=== PATIENT | male | born 1945 | race Caucasian/White ===

== ENCOUNTER → 2016-09-01 | Outpatient (CLI) | payer MEDICARE ==
--- NOTE | 2016-09-01 16:28 | XR ---
EXAMINATION TYPE: XR cervical spine comp DATE OF EXAM ORDERED: 09/01/2016 4:12 PM HISTORY: M54.2 Cervicalgia. COMPARISON: None. FINDINGS: There has been a midline sternotomy. There has been an ACDF extending from C4 to C7. Alignment is maintained. There does appear to be osse ous fusion. Atlantoaxial relationships are normal. There is intervertebral foraminal narrowing on the left at at C5-6 and C6-7. There is intervertebral foraminal narrowing on the right at C4-5, C5-6 and C6-7. Prevertebral soft tissues are normal. IMPRESSION: 1. STATUS POST ACDF, C4 THROUGH TO C7. 2. MULTILEVEL INTERVERTEBRAL FORAMINAL NARROWING DESCRIBED.
== END ==
LOC: RADXRMAIN 15:31
PROVIDERS: ATTEND Family Medicine
DX: Z98.1 Arthrodesis status (principal); M99.71 Connective tissue and disc stenosis of intervertebral foramina of cervical region
CPT/HCPCS: 72050

== ENCOUNTER → 2016-10-20 | Outpatient (CLI) | payer MEDICARE ==
--- NOTE | 2016-10-20 13:33 | CT ---
EXAMINATION TYPE: CT cervical spine wo con DATE OF EXAM: 10/20/2016 1:13 PM COMPARISON: NONE HISTORY: Cervical radiculopathy CT DLP: 640.[address] of the cervical spine was performed with bone and soft tissue window settings submitted . Coronal and sagittal reconstruction is obtained. C2-3: Unremarkable C3-4: Mild degenerative disc space narrowing. Posterior disc bulge. No evidence for disc herniation o r protrusion. No central stenosis. Degenerative changes of the cervical apophyseal joints resulting i n mild left foraminal encroachment. C4-5: There is evidence of solid fusion. Anterior fixation plate is in place. Alignment is anatomic. Mild posterior hypertrophic change seen. No evidence for recurrent or residual disease. No evidence f or central stenosis. Mild right foraminal encroachment. C5-6: There is evidence of solid fusion. Anterior fixation plate and screws are in place. Mild hypert rophic changes seen posteriorly. No evidence for recurrent or residual disease. Mild left foraminal e ncroachment. C6-7: Evidence of solid fusion. Anterior fixation plate and screws are in place. Alignment is anatomi c. Mild posterior hypertrophic change. No definite evidence for recurrent or residual disease. No estella tral stenosis. Mild bilateral foraminal encroachment. C7-T1: Moderate degenerative disc space narrowing. Mild posterior disc bulge. No herniation protrusio n or central stenosis. Foramina are patent. There is no evidence for fracture or malalignment. IMPRESSION: 1. Postoperative changes of fusion as discussed C4-5 through C6-7. Mild foraminal encroachment noted. 2. Mild posterocentral disc bulge at C3-4. See above.
== END | disposition home or self-care (01) ==
LOC: RADCTMAIN 12:50
PROVIDERS: ATTEND Family Medicine
DX: M50.11 Cervical disc disorder with radiculopathy, high cervical region (principal); Z98.1 Arthrodesis status
CPT/HCPCS: 72125

== ENCOUNTER → 2017-04-26 | Outpatient (CLI) | payer MEDICARE ==
[2017-04-26 14:36] LABS: Blood Urea Nitrogen 14 mg/dL (9-20); Non-African American GFR(MDRD) >60 (>60 ml/min/1.73 sqM)
--- NOTE | 2017-04-26 15:51 | CT ---
EXAMINATION TYPE: CT angio chest DATE OF EXAM: 04/26/2017 COMPARISON: 03/11/2015 HISTORY: Ascending aortic aneurysm CT DLP: 428.1 mGycm CONTRAST: CTA thoracic aorta with 3-D reconstruction is performed and with IV Contrast, patient injected with 1 00 mL of Omnipaque 350. Contrast CTA of the thoracic aorta was performed from the lung apex through the upper abdomen. 3D re construction imaging obtained at a separate workstation. CT Chest: THORACIC AORTA: Ascending thoracic aortic aneurysm is again noted and is essentially unchanged measur ing approximately 4.7 cm AP dimension versus 4.7 cm previously. No evidence for complicating factor s uch as dissection or para-aortic hematoma. Atheromatous Changes are noted. Mild atheromatous changes seen. There is no evidence for dissection or periaortic collection. LUNGS: The lungs are clear and free of infiltrate or atelectasis. No pulmonary nodule or mass is det ected. Upper lobe emphysematous changes again noted. MEDIASTINUM: No evidence for mediastinal hemat rachid. The heart is not enlarged. No evidence for mediastinal mass or adenopathy. HILAR STRUCTURES: No evidence for mass. No hilar adenopathy is appreciated. OTHER: No significant abnormality. IMPRESSION- Stable ascending thoracic aortic aneurysm.
== END | disposition home or self-care (01) ==
LOC: RADCTMAIN 13:56
PROVIDERS: ATTEND Internal Medicine Interventional Cardiology
DX: I71.2 Thoracic aortic aneurysm, without rupture (principal); I25.10 Atherosclerotic heart disease of native coronary artery without angina pectoris; Z88.1 Allergy status to other antibiotic agents; Z88.8 Allergy status to other drugs, medicaments and biological substances
CPT/HCPCS: 82565; 84520; 71275; 36415; Q9967

== ENCOUNTER → 2018-03-16 | Outpatient (CLI) | payer MEDICARE ==
[2018-03-16 15:44] LABS: Calcium 9.5 mg/dL (8.4-10.2); Potassium 5.3 mmol/L (3.5-5.1)
--- NOTE | 2018-03-16 16:44 | CT ---
EXAMINATION TYPE: CT angio thor/abd pel aorta DATE OF EXAM: 03/16/2018 COMPARISON: None HISTORY: follow up thoracic aneurysm CT DLP: 814.30 mGycm, Automated exposure control for dose reduction was used. CONTRAST: Performed injected with 100 mL of Isovue 370. TECHNIQUE: Axial images were obtained at 5 mm thick sections. Reconstructed images are reviewed on t he computer in the coronal plane. FINDINGS: Portion of the thyroid visualized is normal. No suspicious lung nodules or focal infiltrates are present. Emphysematous changes are present. No enlarged mediastinal or hilar adenopathy is evident. There is a three-vessel arch. The ascending thoracic aorta at the level of the main pulmonary artery is 4.7 cm. The main pulmonary artery the bifurcation is 3.8 cm. Maximum transverse diameter of the ao rta is the ascending thoracic aorta above the root measuring 4.8 cm. The aorta tapers through its cou rse. The descending thoracic aorta at the level of the niki the diaphragm measures 2.9 cm AP. Renal artery origins superior mesenteric artery origin appear normal. The celiac axis may has some fo beka stenosis identified on the sagittal plane and reconstructed images. There may be some mild fusiform prominence of the distal abdominal aorta with the AP diameter above t he bifurcation measuring 2.4 cm. The mid abdominal aorta has a more normal appearance of 2.1 cm. Vasc ular calcification is noted throughout the aorta. ABDOMEN: Multiple bilateral renal cysts are present measuring the largest 4.1 cm on the posterior inf erior medial left kidney measuring 4.5 superior lateral right kidney. Liver may has some central bili joanne dilatation. Patient is status post cholecystectomy common bile duct appears prominent at 1.4 cm. Normal less than 1.0 cm. The adrenal glands are normal. Loops of bowel without oral contrast are unre markable. Urinary bladder is decompressed. Wall thickening is not excluded. Prostate contains calcifi cation. The appendix is not identified. No suspicious inflammatory changes or tubular structures are evident. IMPRESSIONS: 1. Ascending thoracic aortic aneurysm measuring 4.8 cm at the aortic root. This tapers throughout the visualized aorta to the distal abdominal aorta which has some mild fusiform prominence of the maximu m AP diameter of 2.4 cm compared to slightly more proximal 2.1 cm. 2. Bilateral renal cysts. 3. Prominent common bile duct 1.4 cm.
== END | disposition home or self-care (01) ==
LOC: RADCTMAIN 14:59
PROVIDERS: ATTEND Internal Medicine Interventional Cardiology
DX: I71.2 Thoracic aortic aneurysm, without rupture (principal); I10 Essential (primary) hypertension; N28.1 Cyst of kidney, acquired; Z79.899 Other long term (current) drug therapy
CPT/HCPCS: 80048; 71275; 36415; 74174; Q9967

== ENCOUNTER 2019-10-20 21:00 | Inpatient (IN) | payer MEDICARE ==
[2019-10-20] MEDS ORDERED: AMIODARONE 360 MG in DEXTROSE 5% IN WATER 200 ML IV ONE ×2 (21:06)
[2019-10-20] MEDS ORDERED: DEXTROSE 5% IN WATER 100 ML with AMIODARONE 150 MG IV ONE (21:06)
--- NOTE | 2019-10-20 21:27 | XR ---
EXAMINATION TYPE: XR chest 1V portable DATE OF EXAM: 10/20/2019 HISTORY: Shortness of breath. COMPARISON: July 20, 2014 TECHNIQUE: Single view of the chest is submitted. FINDINGS: Demonstrated are scattered senescent parenchymal change. There is increased patchy density right suprahilar and right infrahilar regions which may reflect dev eloping pneumonia. Correlate clinically. There is cardiomegaly without overt failure at this time. Hilar and mediastinal structures are within normal limits. Degenerative changes are seen of the dorsal spine. IMPRESSION: 1. There is increased patchy density right suprahilar and right infrahilar regions which may reflect developing pneumonia. Correlate clinically.
--- NOTE | 2019-10-20 21:29 | ED ---
General Adult HPI - General Stated complaint: Cardiac issues Time Seen by Provider: 10/20/19 21:02 Source: patient, EMS, RN notes reviewed, old records reviewed Mode of arrival: EMS Limitations: no limitations - History of Present Illness Initial comments: 74-year-old male presents by EMS with ventricular tachycardia. He has a history of CAD, status post coronary artery bypass graft in 1999. He's had intermittent chest pain throughout the day today. As well as several episodes of vomiting. Patient had been given aspirin nitroglycerin by EMS prior to arrival. He has stable blood pressure during transport. He has no active chest pain at the time my evaluation. Denies current dyspnea but states that at times throughout the day today he had had dyspnea. No reported fever. Denies recent changes in medication. - Related Data Home Medications Medication Instructions Recorded Confirmed Aspirin 81 mg PO DAILY 07/04/14 10/15/14 Diltiazem Cd [Cardizem CD] 240 mg PO DAILY 07/04/14 10/15/14 Ezetimibe [Zetia] 10 mg PO DAILY 07/04/14 10/15/14 Sertraline [Zoloft] 100 mg PO BID 07/04/14 10/15/14 Tamsulosin HCl [Flomax] 0.4 mg PO DAILY 07/04/14 10/15/14 oxyCODONE HCL [OxyCONTIN] 60 mg PO QID 07/04/14 10/15/14 Ipratropium-Albuterol Nebulize 3 ml INHALATION DIRECTED PRN 10/12/14 10/15/14 [Duoneb 0.5 mg-3 mg/3 ml Soln] Metoprolol Tartrate [Lopressor] 50 mg PO HS 10/12/14 10/15/14 Metoprolol Tartrate [Lopressor] 100 mg PO QAM 10/12/14 10/15/14 Pravastatin Sodium [Pravachol] 40 mg PO HS 10/12/14 10/15/14 Previous Rx's Medication Instructions Recorded Finasteride [Proscar] 5 mg PO DAILY #30 tab 07/23/14 Furosemide [Lasix] 40 mg PO DAILY #30 tab 07/23/14 Losartan [Cozaar] 50 mg PO DAILY #30 tab 07/23/14 Potassium Citrate [Urocit-K] 10 meq PO PC-TID #1 tablet.er 07/23/14 Allergies Allergy/AdvReac Type Severity Reaction Status Date / Time levofloxacin [From Levaquin] AdvReac Unknown Verified 10/20/19 21:02 Review of Systems ROS Statement: Those systems with pertinent positive or pertinent negative responses have been documented in the HPI. ROS Other: All systems not noted in ROS Statement are negative. Past Medical History Past Medical History: Coronary Artery Disease (CAD), Chest Pain / Angina, COPD, Hyperlipidemia, Hypertension, Musculoskeletal Disorder, Osteoarthritis (OA), Prostate Disorder Additional Past Medical History / Comment(s): CAD, CABG, HTN, hyperlipidemia, GERD, HH, fibromyalgia, OA, anemia, kidney stones, hypogonadism, COPD, depression. History of Any Multi-Drug Resistant Organisms: None Reported Past Surgical History: Adenoidectomy, Back Surgery, Cholecystectomy, Coronary Bypass/CABG, Heart Catheterization, Hernia Repair, Orthopedic Surgery, Tonsillectomy Additional Past Surgical History / Comment(s): CABG x3 15 years ago, tonsillectomy and adenoidectomy, rhinoplasty, ACDF 2, left bunionectomy, Lasik, lap glen, lipoma from left shoulder 2, colonoscopy 5 years ago, hernia repair. Past Anesthesia/Blood Transfusion Reactions: No Reported Reaction Past Psychological History: No Psychological Hx Reported Smoking Status: Former smoker Past Alcohol Use History: None Reported Past Drug Use History: None Reported - Past Family History Mother Family Medical History: Cancer, Coronary Artery Disease (CAD) Father Family Medical History: Cancer Brother(s) Family Medical History: Congestive Heart Failure (CHF), Coronary Artery Disease (CAD) Sister(s) Family Medical History: Congestive Heart Failure (CHF) General Exam Limitations: no limitations General appearance: alert, in no apparent distress Head exam: Present: atraumatic, normocephalic Eye exam: Present: normal appearance, PERRL Neck exam: Present: normal inspection Respiratory exam: Present: normal lung sounds bilaterally. Absent: respiratory distress, wheezes Cardiovascular Exam: Present: normal rhythm, tachycardia GI/Abdominal exam: Present: soft. Absent: distended, tenderness, guarding Extremities exam: Present: normal capillary refill, pedal edema Neurological exam: Present: alert, oriented X3. Absent: motor sensory deficit Psychiatric exam: Present: anxious Skin exam: Present: warm, dry, pallor. Absent: cyanosis, diaphoretic Course Vital Signs 10/20/19 10/20/19 10/20/19 21:03 21:25 21:50 Temperature 98.3 F Pulse Rate 128 H 128 H 129 H Respiratory 20 20 20 Rate Blood Pressure 169/114 185/110 169/104 O2 Sat by Pulse 98 97 98 Oximetry 10/20/19 22:00 Temperature Pulse Rate 125 H Respiratory 20 Rate Blood Pressure 172/107 O2 Sat by Pulse 98 Oximetry - Reevaluation(s) Reevaluation #1: 10/20/19 21:35 Case was discussed with Dr. Sexton, agree with amiodarone and heparin, recommends lidocaine and cardioversion if lidocaine fast to convert this patient. Reevaluation #2: 10/20/19 21:[address] Best who will admit. Reevaluation #3: 10/20/19 21:[address] Dodson, will accept patient to the ICU. EKG Findings - EKG Comments: EKG Findings:: EKG: Wide complex tachycardia, sustained ventricular tachycardia rate of 129, QRS duration 176, QTC 600 ST segment depression in the precordial leads. History of left bundle branch block. Repeat EKG at 2218, wide-complex sinus rhythm with frequent consecutive PVC and sustained V. tach, left axis deviation, right bundle-branch block ventricular rate of 110, QRS duration 126, QTC 519, no ST segment elevation Medical Decision Making - Medical Decision Making 74-year-old male presenting with sustained ventricular tachycardia and intermittent chest pain throughout the day today. His symptoms have been present for greater than 12 hours prior to arrival. He started on amiodarone in the emergency department. Did discuss case with cardiology who recommended lidocaine, lidocaine was administered and there was improvement in rhythm, sinus rhythm with frequent PVCs and nonsustained V. tach. Chest x-ray showing concern for atelectasis versus pneumonia. Patient has normal electrolytes, CBC showed mild anemia with hemoglobin 12.9. His troponin is significantly elevated at 11 consistent with a non-ST segment elevated ID and likely worsening troponin elevation secondary to demand from ventricular tachycardia. He had been initiated on heparin, will be continued on amiodarone he had been given aspirin by EMS prior to arrival. He's admitted to the ICU with both pulmonology and cardiology on consult. Both Dr. Sexton and Dr. Dodson, have been contacted as well as the admitting physician Dr. Best. - Lab Data Result diagrams: 10/20/19 21:15 10/20/19 21:15 Lab Results 10/20/19 10/20/19 10/20/19 Range/Units 21:15 21:15 21:15 WBC 8.1 (3.8-10.6) k/uL RBC 4.38 (4.30-5.90) m/uL Hgb 12.6 L (13.0-17.5) gm/dL Hct 40.6 (39.0-53.0) % MCV 92.7 (80.0-100.0) fL MCH 28.8 (25.0-35.0) pg MCHC 31.1 (31.0-37.0) g/dL RDW 13.8 (11.5-15.5) % Plt Count 180 (150-450) k/uL Neutrophils % 79 % Lymphocytes % 11 % Monocytes % 7 % Eosinophils % 0 % Basophils % 0 % Neutrophils # 6.4 (1.3-7.7) k/uL Lymphocytes # 0.9 L (1.0-4.8) k/uL Monocytes # 0.6 (0-1.0) k/uL Eosinophils # 0.0 (0-0.7) k/uL Basophils # 0.0 (0-0.2) k/uL Hypochromasia Slight PT (9.0-12.0) sec INR (<1.2) APTT (22.0-30.0) sec Sodium 136 L (137-145) mmol/L Potassium 5.0 (3.5-5.1) mmol/L Chloride 106 (98-107) mmol/L Carbon Dioxide 15 L (22-30) mmol/L Anion Gap 15 mmol/L BUN 28 H (9-20) mg/dL Creatinine 0.88 (0.66-1.25) mg/dL Est GFR (CKD-EPI)AfAm >90 (>60 ml/min/1.73 sqM) Est GFR (CKD-EPI)NonAf 84 (>60 ml/min/1.73 sqM) Glucose 136 H (74-99) mg/dL Calcium 9.0 (8.4-10.2) mg/dL Magnesium 1.9 (1.6-2.3) mg/dL Total Bilirubin 1.4 H (0.2-1.3) mg/dL AST 158 H (17-59) U/L ALT 69 H (4-49) U/L Alkaline Phosphatase 84 (38-126) U/L Troponin I 11.600 H* (0.000-0.034) ng/mL NT-Pro-B Natriuret Pep pg/mL Total Protein 6.6 (6.3-8.2) g/dL Albumin 3.5 (3.5-5.0) g/dL 10/20/19 10/20/19 Range/Units 21:15 21:39 WBC (3.8-10.6) k/uL RBC (4.30-5.90) m/uL Hgb (13.0-17.5) gm/dL Hct (39.0-53.0) % MCV (80.0-100.0) fL MCH (25.0-35.0) pg MCHC (31.0-37.0) g/dL RDW (11.5-15.5) % Plt Count (150-450) k/uL Neutrophils % % Lymphocytes % % Monocytes % % Eosinophils % % Basophils % % Neutrophils # (1.3-7.7) k/uL Lymphocytes # (1.0-4.8) k/uL Monocytes # (0-1.0) k/uL Eosinophils # (0-0.7) k/uL Basophils # (0-0.2) k/uL Hypochromasia PT 12.9 H (9.0-12.0) sec INR 1.3 H (<1.2) APTT 21.6 L (22.0-30.0) sec Sodium (137-145) mmol/L Potassium (3.5-5.1) mmol/L Chloride (98-107) mmol/L Carbon Dioxide (22-30) mmol/L Anion Gap mmol/L BUN (9-20) mg/dL Creatinine (0.66-1.25) mg/dL Est GFR (CKD-EPI)AfAm (>60 ml/min/1.73 sqM) Est GFR (CKD-EPI)NonAf (>60 ml/min/1.73 sqM) Glucose (74-99) mg/dL Calcium (8.4-10.2) mg/dL Magnesium (1.6-2.3) mg/dL Total Bilirubin (0.2-1.3) mg/dL AST (17-59) U/L ALT (4-49) U/L Alkaline Phosphatase (38-126) U/L Troponin I (0.000-0.034) ng/mL NT-Pro-B Natriuret Pep 84413 pg/mL Total Protein (6.3-8.2) g/dL Albumin (3.5-5.0) g/dL Critical Care Time Critical Care Time: Yes Total Critical Care Time: 35 Disposition Clinical Impression: Ventricular tachycardia, NSTEMI (non-ST elevated myocardial infarction) Disposition: ADMITTED IP TO THIS [facility] Condition: Serious Is patient prescribed a controlled substance at d/c from ED?: No Referrals: Cong Hassan DO [Primary Care Provider] - 1-2 days Decision to Admit Reason: Admit from EC Decision Date: 10/20/19 Decision Time: 22:25
[2019-10-20] MEDS ORDERED: HEPARIN SODIUM,PORCINE 5,000 UNIT/ML 1 ML VIAL IV PRN (21:31)
[2019-10-20] MEDS ORDERED: HEPARIN SODIUM,PORCINE 5,000 UNIT/ML 1 ML VIAL IV ONE (21:31)
[2019-10-20] MEDS ORDERED: cefTRIAXone IN SWFI 1,000 MG/10 ML SYRINGE IVP STA (21:32)
[2019-10-20 21:35] LABS: AST 158 U/L (17-59); African American GFR (CKD) >90 (>60 ml/min/1.73 sqM); Albumin 3.5 g/dL (3.5-5.0); Alkaline Phosphatase 84 U/L (38-126); Anion Gap 15 mmol/L; Basophils % (A) 0 %; Blood Urea Nitrogen 28 mg/dL (9-20); Carbon Dioxide 15 mmol/L (22-30); Chloride 106 mmol/L (98-107); Eosinophils % (A) 0 %; Glucose 136 mg/dL (74-99); HCT 40.6 % (39.0-53.0); HGB 12.6 gm/dL (13.0-17.5); Hypochromasia Slight; Lymphocytes # (A) 0.9 k/uL (1.0-4.8); Lymphocytes % (A) 11 %; MCH 28.8 pg (25.0-35.0); MCHC 31.1 g/dL (31.0-37.0); MCV 92.7 fL (80.0-100.0); Magnesium 1.9 mg/dL (1.6-2.3); Mean Platelet Volume 11.4; Monocytes # (A) 0.6 k/uL (0-1.0); Monocytes % (A) 7 %; Neutrophils # (A) 6.4 k/uL (1.3-7.7); Neutrophils % (A) 79 %; Non-African American GFR(CKD) 84 (>60 ml/min/1.73 sqM); Platelet Count 180 k/uL (150-450); RBC 4.38 m/uL (4.30-5.90); RDW 13.8 % (11.5-15.5); Sodium 136 mmol/L (137-145); Total Bilirubin 1.4 mg/dL (0.2-1.3); Total Protein 6.6 g/dL (6.3-8.2); WBC 8.1 k/uL (3.8-10.6)
[2019-10-20 21:42] LABS: ALT 69 U/L (4-49)
[2019-10-20] MEDS ORDERED: HEPARIN SOD,PORK IN 0.45% NACL 25,000 UNIT in 0.45% NACL 1 250ML.BAG IV SCH (21:45)
[2019-10-20] MEDS ORDERED: LIDOCAINE 2% SYG (PF) 100 MG/5 ML IV ONE (21:47)
[2019-10-20] MEDS ORDERED: NALOXONE 0.4 MG/ML 1 ML VIAL IV PRN (21:58)
[2019-10-20] MEDS ORDERED: ACETAMINOPHEN TAB 325 MG TAB PO PRN (21:58)
[2019-10-20 21:59] LABS: INR 1.3 (<1.2); Prothrombin Time 12.9 sec (9.0-12.0)
[2019-10-20] MEDS ORDERED: SODIUM CHLORIDE 0.9% 1,000 ML IV SCH (22:00)
[2019-10-20 22:07] LABS: Partial Thromboplastin Time 21.6 sec (22.0-30.0)
[2019-10-20] MEDS ORDERED: MIDAZOLAM 1 MG/ML 5 ML VIAL IV STA (22:43)
[2019-10-20] MEDS ORDERED: MORPHINE SULFATE 2 MG/ML SYRINGE IVP STA (22:44)
[2019-10-20] MEDS ORDERED: MIDAZOLAM 2 MG/2 ML VIAL IV STA (22:49)
[2019-10-20] MEDS ORDERED: FUROSEMIDE 10 MG/ML 4 ML VIAL IV STA (22:50)
[2019-10-20] MEDS ORDERED: MAGNESIUM SULFATE-D5W PMX 1 GM in DEXTROSE/WATER 1 100ML.BAG IVPB ONE (22:54)
[2019-10-20] MEDS ORDERED: METOPROLOL TARTRATE 5 MG/5 ML VIAL IVP STA (23:03)
[2019-10-20] MEDS ORDERED: METOPROLOL SUCCINATE (ER) 50 MG TAB.ER.24H PO STA (23:15)
[2019-10-20 23:57] LABS: Glucose,Whole Blood 175 mg/dL (75-99)
[2019-10-21] MEDS ORDERED: LORazepam 2 MG/ML INJ IV PRN (02:05)
[2019-10-21 03:32] LABS: HCT 42.8 % (39.0-53.0); HGB 13.6 gm/dL (13.0-17.5); MCH 28.9 pg (25.0-35.0); MCHC 31.9 g/dL (31.0-37.0); MCV 90.7 fL (80.0-100.0); Mean Platelet Volume 11.3; Platelet Count 167 k/uL (150-450); RBC 4.72 m/uL (4.30-5.90); RDW 13.9 % (11.5-15.5); WBC 9.7 k/uL (3.8-10.6)
[2019-10-21 04:13] LABS: Large Platelets Present; Lymphocytes # (M) 1.07 k/uL (1.0-4.8); Monocytes # (M) 1.07 k/uL (0-1.0); Neutrophils # (M) 7.57 k/uL (1.3-7.7); Neutrophils % (M) 78 %; Nucleated Red Blood Cells 0 /100 WBC (0-0); Total Cells Counted 100
[2019-10-21] MEDS: AMIODARONE 300 MG in DEXTROSE 5% IN WATER 250 ML IV SCH ×4 (04:14→14:37)
--- NOTE | 2019-10-21 04:31 | CT ---
EXAMINATION TYPE: CT brain wo con DATE OF EXAM: 10/21/2019 COMPARISON: None HISTORY: CVA CT DLP: 1278.4 mGycm Automated exposure control for dose reduction was used. Exam limited somewhat by motion. Trickle have normal size. There is no mass effect nor midline shift. I see no sign of intracranial hemorrhage. Calvarium is intact. There is cerebral cortical atrophy. IMPRESSION: Limited exam. Motion artifact. No sign of acute intracranial abnormality.
[2019-10-21] MEDS ORDERED: DEXTROSE 5% IN WATER 100 ML with AMIODARONE 150 MG IV ONE (06:55)
[2019-10-21] MEDS ORDERED: METOPROLOL TARTRATE 5 MG/5 ML VIAL IVP ONE (06:56)
[2019-10-21] MEDS ORDERED: METOPROLOL SUCCINATE (ER) 25 MG TAB.ER.24H PO STA (07:12)
[2019-10-21] MEDS ORDERED: NITROGLYCERIN OINT 1 INCH/GM PACKET TOPICAL SCH (08:00)
[2019-10-21] MEDS ORDERED: SODIUM CHLORIDE 0.9% 1,000 ML in EMPTY BAG 1 BAG IV ONE (08:27)
[2019-10-21] MEDS ORDERED: ALPRAZolam 0.5 MG TAB PO PRN (08:27)
[2019-10-21] MEDS ORDERED: ALPRAZolam 0.25 MG TAB PO PRN (08:27)
[2019-10-21] MEDS ORDERED: ASPIRIN 325 MG TAB PO STA (08:27)
[2019-10-21] MEDS ORDERED: NITROGLYCERIN SL TABS 0.4 MG TAB SUBLINGUAL PRN (08:27)
[2019-10-21] MEDS ORDERED: ATORVASTATIN 80 MG TAB PO STA (08:27)
[2019-10-21] MEDS ORDERED: METOPROLOL TARTRATE 25 MG TAB PO SCH (09:00)
[2019-10-21] MEDS: ASPIRIN 81 MG PO SCH (09:03)
[2019-10-21] MEDS: ATORVASTATIN 80 MG TAB PO SCH (09:03)
[2019-10-21] MEDS: FUROSEMIDE 10 MG/ML 4 ML VIAL IV SCH ×2 (09:03→21:05)
[2019-10-21] MEDS ORDERED: IPRATROPIUM-ALBUTEROL 3 ML NEB INHALATION PRN (09:05)
--- NOTE | 2019-10-21 09:42 | P.HPIM ---
History of Present Illness H&P Date: 10/21/19 Chief Complaint: Ventricular tachycardia, non-ST HI, CAD, change mental status, hypertension 74-year-old male one of Dr. Hassan patient with past medical history of CAD post CABG in 2019, history of COPD, hypertension, hyperlipidemia and arrhythmia who presented to the emergency department at [facility] on 10/20/2019 after EMS was called to the scene patient apparently has been having intermittent chest pain through the entire day with nausea and vomiting he has been having significant altered mental status with lightheadedness dizziness palpitation with chest discomfort and significant shortness of breath. Patient found to be in sustained ventricular tachycardia at the time. He made it to demurs department his troponin was 15, EKG showed ventricular tachycardia, patient was started on amiodarone drip and heparin drip cardiology were called and patient was admitted for non-ST HI with nonsustained V. tach. Will be admitted to the ICU patient will be going for heart cath as soon as his stable. Review of Systems CONSTITUTIONAL: Well-developed no acute respiratory distress. More dizziness EYES: No icterus sclerae, no conjunctivitis. EARS, NOSE, MOUTH, THROAT, and FACE: No sore throat, lymphadenopathy, carotid bruits or deformity. RESPIRATORY: Significant shortness of breath, cough wheezes. CARDIOVASCULAR: Positive chest pain, positive angina, positive palpitation and arrhythmia, positive PND. GASTROINTESTINAL: No abdominal pain but positive nausea and vomiting no diarrhea slight indigestion as well. GENITOURINARY: Negative for Hematuria or UTI, no kidney stones. INTEGUMENT/BREAST: Negative for any muscular injury with mild osteoarthritis.. HEMATOLOGIC/LYMPHATIC: Negative for bleed or purpura. MUSCULOSKELTAL: Negative for Myalgia or arthralgia. NEURLOGICAL: Alert with mild change mental status. BEHAVIORAL/PSYCH: Negative. ENDOCRINE: Negative. Past Medical History Past Medical History: Coronary Artery Disease (CAD), Chest Pain / Angina, COPD, Hyperlipidemia, Hypertension, Musculoskeletal Disorder, Osteoarthritis (OA), Prostate Disorder Additional Past Medical History / Comment(s): CAD, CABG, HTN, hyperlipidemia, GERD, HH, fibromyalgia, OA, anemia, kidney stones, hypogonadism, COPD, depression. History of Any Multi-Drug Resistant Organisms: None Reported Past Surgical History: Adenoidectomy, Back Surgery, Cholecystectomy, Coronary Bypass/CABG, Heart Catheterization, Hernia Repair, Orthopedic Surgery, Tonsillectomy Additional Past Surgical History / Comment(s): CABG x3 15 years ago, tonsillectomy and adenoidectomy, rhinoplasty, ACDF 2, left bunionectomy, Lasik, lap glen, lipoma from left shoulder 2, colonoscopy 5 years ago, hernia repair. Past Anesthesia/Blood Transfusion Reactions: No Reported Reaction Past Psychological History: No Psychological Hx Reported Smoking Status: Former smoker Past Alcohol Use History: None Reported Past Drug Use History: None Reported - Past Family History Mother Family Medical History: Cancer, Coronary Artery Disease (CAD) Father Family Medical History: Cancer Brother(s) Family Medical History: Congestive Heart Failure (CHF), Coronary Artery Disease (CAD) Sister(s) Family Medical History: Congestive Heart Failure (CHF) Medications and Allergies Home Medications Medication Instructions Recorded Confirmed Type Ezetimibe [Zetia] 10 mg PO DAILY 07/04/14 10/20/19 History Tamsulosin HCl [Flomax] 0.4 mg PO DAILY 07/04/14 10/20/19 History Finasteride [Proscar] 5 mg PO DAILY #30 tab 07/23/14 10/20/19 Rx ALPRAZolam [Xanax] 0.5 mg PO TID PRN 10/20/19 10/20/19 History Albuterol Sulfate [Proair Hfa] 2 puff INHALATION RT-Q6H PRN 10/20/19 10/20/19 History Buprenorphine [Butrans 10 MCG/HOUR] 1 patch TRANSDERM Q7D 10/20/19 10/20/19 History Meloxicam 15 mg PO DAILY PRN 10/20/19 10/20/19 History Pregabalin [Lyrica] 150 mg PO BID 10/20/19 10/20/19 History cloNIDine HCL [Catapres] 0.1 mg PO DAILY 10/20/19 10/20/19 History hydrALAZINE HCL 25 mg PO TID 10/20/19 10/20/19 History Allergies Allergy/AdvReac Type Severity Reaction Status Date / Time levofloxacin [From Levaquin] AdvReac Unknown Verified 10/20/19 23:47 Physical Exam Vitals: Vital Signs Temp Pulse Resp BP BP Pulse Ox 10/21/19 08:00 99.3 F 70 23 159/78 97 10/21/19 07:00 73 9 L 136/84 83 L 10/21/19 06:00 63 14 134/58 10/21/19 05:00 66 27 H 161/87 10/21/19 04:15 95 45 H 89 L 10/21/19 04:00 131/50 10/21/19 03:45 131/50 10/21/19 03:30 81 33 H 131/93 10/21/19 03:15 77 18 169/92 90 L 10/21/19 03:00 74 26 H 126/95 10/21/19 02:45 76 26 H 169/87 10/21/19 02:30 74 28 H 173/86 95 10/21/19 02:15 82 30 H 159/94 10/21/19 02:00 29 H 173/104 10/21/19 01:45 76 20 174/86 96 10/21/19 01:30 77 12 138/95 10/21/19 01:15 84 10 L 162/91 10/21/19 01:07 99.0 F 133 H 10 L 154/96 93 L 10/20/19 23:59 100 10/20/19 23:30 76 20 154/94 94 L 10/20/19 23:10 74 20 163/85 94 L 10/20/19 23:00 79 20 157/77 94 L 10/20/19 22:55 124 H 22 147/93 93 L 10/20/19 22:35 122 H 18 168/98 95 10/20/19 22:29 99.0 F 19 154/96 93 L 10/20/19 22:20 122 H 10/20/19 22:15 109 H 20 180/112 97 10/20/19 22:00 125 H 20 172/107 98 10/20/19 21:50 129 H 20 169/104 98 10/20/19 21:25 128 H 20 185/110 97 10/20/19 21:03 98.3 F 128 H 20 169/114 98 Intake and Output 10/20/19 10/21/19 10/21/19 22:59 06:59 14:59 Output Total 1045 60 Balance -1045 -60 Output: Urine 1045 60 Other: Voiding Method Indwelling Catheter # Voids 1 Weight 82.554 kg 80.4 kg General Appearance: Alert, cooperative, no distress, appears stated age. Neck HEENT: Supple, no lymphadenopathy, no thyroid enlargement, no carotid bruits. Lungs: Decreased breath some bilaterally with fine rhonchi and mild expiratory wheezes mild crackles in the bases. Chest Wall: Decrease expansion with deep inspiration no tenderness and no deformity was found on exam, no costochondral pain or discomfort. Heart: Irregular rhythm and rate S1-S2 positive history positive PVCs with systolic murmur. Back: Symmetric, no curvature, ROM normal, no CVA tenderness. Abdomen: Slight abdominal discomfort without tenderness rebound or rigidity. Extremities: Extremities normal, atraumatic, no cyanosis or edema. Pulses: 2+ and symmetric. Skin: Skin color, texture, tugor normal, no rashes or lesions. Neurologic: Alert severely confuse, cranial nerves II through XII intact, no motor deficit, no abnormal balance or gait. Results CBC & Chem 7: 10/22/19 05:12 10/22/19 05:12 Labs: Abnormal Lab Results - Last 24 Hours (Table) 10/20/19 10/20/19 10/20/19 Range/Units 21:15 21:15 21:15 Hgb 12.6 L (13.0-17.5) gm/dL Lymphocytes # 0.9 L (1.0-4.8) k/uL Monocytes # (Manual) (0-1.0) k/uL PT (9.0-12.0) sec INR (<1.2) APTT (22.0-30.0) sec Sodium 136 L (137-145) mmol/L Carbon Dioxide 15 L (22-30) mmol/L BUN 28 H (9-20) mg/dL Glucose 136 H (74-99) mg/dL POC Glucose (mg/dL) (75-99) mg/dL Total Bilirubin 1.4 H (0.2-1.3) mg/dL AST 158 H (17-59) U/L ALT 69 H (4-49) U/L Troponin I 11.600 H* (0.000-0.034) ng/mL 10/20/19 10/20/19 10/21/19 Range/Units 21:39 23:55 01:50 Hgb (13.0-17.5) gm/dL Lymphocytes # (1.0-4.8) k/uL Monocytes # (Manual) (0-1.0) k/uL PT 12.9 H (9.0-12.0) sec INR 1.3 H (<1.2) APTT 21.6 L (22.0-30.0) sec Sodium (137-145) mmol/L Carbon Dioxide (22-30) mmol/L BUN (9-20) mg/dL Glucose (74-99) mg/dL POC Glucose (mg/dL) 175 H (75-99) mg/dL Total Bilirubin (0.2-1.3) mg/dL AST (17-59) U/L ALT (4-49) U/L Troponin I 15.800 H* (0.000-0.034) ng/mL 10/21/19 Range/Units 03:20 Hgb (13.0-17.5) gm/dL Lymphocytes # (1.0-4.8) k/uL Monocytes # (Manual) 1.07 H (0-1.0) k/uL PT (9.0-12.0) sec INR (<1.2) APTT (22.0-30.0) sec Sodium (137-145) mmol/L Carbon Dioxide (22-30) mmol/L BUN (9-20) mg/dL Glucose (74-99) mg/dL POC Glucose (mg/dL) (75-99) mg/dL Total Bilirubin (0.2-1.3) mg/dL AST (17-59) U/L ALT (4-49) U/L Troponin I (0.000-0.034) ng/mL Thrombosis Risk Factor Assmnt - DVT/VTE Prophylaxis DVT/VTE Prophylaxis: Pharmacologic Prophylaxis ordered, Mechanical Prophylaxis ordered - Choose All That Apply Any of the Below Risk Factors Present?: Yes Each Factor Represents 1 point: Abnormal pulmonary function (COPD), Acute HI Other Risk Factors: Yes Each Risk Factor Represents 2 Points: Patient confined to bed Each Risk Factor Represents 3 Points: Age 75 years or older Other congenital or acquired thrombophilia - If yes, enter type in comment: No Thrombosis Risk Factor Assessment Total Risk Factor Score: 7 Thrombosis Risk Factor Assessment Level: High Risk Assessment and Plan Assessment: 1 sustained ventricular tachycardia: Patient was started on amiodarone drip, heparin drip, seen cardiology converted to nonsustained A. fib at this point continue to monitor patient patient be transferred to the ICU. 2 non-ST HI: With significantly elevated troponin, especially with the ventricular tachycardia patient most likely had an HI will be going for heart cath consult cardiology continue nitro continue heparin drip. 3 severe dyspnea and shortness of breath: Combination of early pulmonary edema along with COPD with mild exacerbation, Patient will be on O2 and if needed titrate his oxygen try to keep his pulse ox above 92 percentile if needed BiPAP can be started. And is seen pulmonary and will be treated for ROM gram-negative pneumonia as well patient will be on antibiotics continue up with graft treatment continue O2 with supportive care. 4 COPD with mild exacerbation: Add DuoNeb and Pulmicort MDI. 5 hypertension: Patient has been on hydralazine and clonidine continue to watch blood pressure hold hydralazine and clonidine for now because of hypertension ongoing we will advance and add medication specially MARIANA inhibitor and beta rox gradually. 6 chronic pain syndrome: Patient has been on albuterol and 15 mg patch will be switched to hydrocodone at this point and can use Dilaudid as needed. 7 BPH: Patient has been on finasteride and Flomax continue both medication as soon as the blood pressure improved in the meanwhile patient will have Abrams catheter will keep watching patient for any significant urinary retention. 8 abnormal liver function tests: Looks like AST 2 ALT 3-1 even patient declined any alcoholism but precaution and watch symptoms carefully for any withdrawal from alcohol or any delirium tremor at this point repeat liver function tests the next 24 hours. 9 acute kidney injury: Stage I repeat BUN/creatinine continue to hydrate patient and improve hemodynamic status. 10 hyperglycemia: Continue patient on Accu-Chek with sliding scales coverage for now. 11 Covid 19 was not deducted and was excluded at this point. 12 DVT prophylaxis: Patient is on heparin drip. 13 GI prophylaxis: Patient will be on pantoprazole IV. CODE STATUS: Full code. Admit patient to inpatient status for more than 2 nights.
[2019-10-21] MEDS ORDERED: ENALAPRILAT 1.25 MG/ML 1 ML VIAL IVP PRN (09:44)
[2019-10-21 09:52] LABS: Cholesterol 113 mg/dL (<200); HDL Cholesterol 53 mg/dL (40-60); LDL Cholesterol,Calculated 45 mg/dL (0-99); Triglycerides 74 mg/dL (<150)
[2019-10-21 09:58] LABS: Glucose,Whole Blood 130 mg/dL (75-99)
--- NOTE | 2019-10-21 10:56 | CONS ---
CONSULTATION Mr. Brandt is a 74-year-old male with a known history of coronary artery disease, underwent coronary artery bypass grafting 15-20 years ago, has been followed by Dr. Chisholm who presented yesterday with symptoms of chest discomfort and episode of recurrent ventricular tachycardia requiring cardioversion. He is somewhat somnolent this morning but answering questions. He denies any chest pain. According to him, he had some pain yesterday. He denies any change in his breathing. He is not clear about what occurred yesterday. According to the emergency room note, he had episode of ventricular tachycardia and had to be cardioverted once in the emergency room with 100 joules. The patient had episode of nonsustained ventricular tachycardia in the ICU. His troponin has been elevated. He denies any peripheral edema. He denies any clear PND, orthopnea. He has not been a smoker for a long time. His details of his bypass surgery are not available. MEDICATION: His medications at home include Zetia, Proscar, Proscar, Catapres 0.1 mg daily, Lyrica, Flomax, hydralazine 25 mg 3 times a day, patch and meloxicam. He is maintained on IV amiodarone at this time. REVIEW OF SYSTEMS: Respiratory system: He has no recent wheezing or cough. No history of obstructive lung disease. GI system: No recent GI bleeding. No peptic ulcer disease. system: No dysuria or hematuria. Nervous system: No history of stroke or seizure. PHYSICAL EXAMINATION: He is a 74-year-old male, alert, somnolent and answering questions appropriately. Blood pressure running in the 130s to 150s with a heart rate in 70s. HEAD: Normocephalic. EYES sclerae anicteric. NECK good upstroke. No bruit. LUNGS with decreased air exchange. No wheezes. HEART: Regular rate and rhythm, S1, S2. No S3 with systolic murmur, ejection type. No diastolic murmur. No rub. ABDOMEN: Soft, nontender. Positive bowel sounds. No organomegaly. EXTREMITIES: No edema. Intact distal pulses. LAB DATA: Lab data revealed a troponin of 11.6 on presentation, 15.8 [place] [address]. BUN and creatinine 28 and 0.88. Potassium of 5, hemoglobin of 12.6. His AST is 158, ALT of 69. His initial EKG in the emergency room revealed wide-complex tachycardia with right bundle branch block configuration. His EKG last night reveals sinus mechanism with left axis deviation, interventricular conduction delay with nonspecific ST-T wave changes. His chest x-ray raised the question of a pneumonia. His CT scan of the brain revealed no acute injury. IMPRESSION: 1. Non ST-segment elevation myocardial infarction with recurrent ventricular tachycardia. 2. Status post coronary artery bypass grafting. 3. Elevated NT proBNP consistent with congestive heart failure. If the patient has no peripheral edema, it could be related to the recurrent ventricular tachycardia and stunning of the myocardium. 4. History of hyperlipidemia. 5. History of hypertension. RECOMMENDATIONS: I would recommend to obtain an echocardiogram with Doppler. The patient will be started on beta rox as well as continue on the amiodarone. He will be continued on aspirin. I would recommend to proceed with coronary angiography. The rationale behind the procedure as well as risks and complications were discussed with the patient who is in full understanding and agreement. Depending on his progress, further recommendations will be made. The prognosis remains guarded. MMODL / IJN: [id number] / MARGARITA
--- NOTE | 2019-10-21 11:03 | ECHOF ---
Referral Reason:NSTEMI MEASUREMENTS -------- HEIGHT: 180.3 cm WEIGHT: 82.6 kg BP: IVSd: 1.3 cm (0.6 - 1.1) LVIDd: 4.8 cm (3.9 - 5.3) LVPWd: 1.6 cm (0.6 - 1.1) IVSs: 1.7 cm LVIDs: 4.3 cm LVPWs: 1.9 cm LAESV Index (A-L): 58.80 ml/m Ao Diam: 2.2 cm (2.0 - 3.7) AV Cusp: 1.5 cm (1.5 - 2.6) LA Diam: 4.3 cm (2.7 - 3.8) MV EXCURSION: 18.351 mm (> 18.000) MV EF SLOPE: 79 mm/s (70 - 150) EPSS: 1.3 cm MV E Valentino: 1.13 m/s MV DecT: 200 ms MV A Valentino: 0.58 m/s MV E/A Ratio: 1.95 AR PHT: 543 ms RAP: 15.00 mmHg RVSP: 74.23 mmHg TAPSE: 13.45 mm FINDINGS -------- Sinus rhythm. This was a technically adequate study. The left ventricular size is normal. There is moderate concentric left ventricular hypertrophy. O verall left ventricular systolic function is severely impaired with, an EF between 20 - 25 %. Incre ased LAP Grade 3 Diastolic Dysfunction. Basal lateral LV wall motion is akinetic. Basal inferior LV wall motion is akinetic. Basal inferoseptal LV wall motion is akinetic. Mid lateral LV wall motion is akinetic. Mid inferior LV wall motion is akinetic. Apical inferior LV wall motion is akinetic. The right ventricle is normal in size. The right ventricular systolic function is moderately impair ed. LA is severely dilated >40 ml/m2 The right atrial size is normal. There is mild aortic valve sclerosis. There is moderate aortic regurgitation. Mild mitral annular calcification present. Severe mitral regurgitation is present. The tricuspid valve appears structurally normal. Moderate to severe tricuspid regurgitation present . There is severe pulmonary hypertension. The right ventricular systolic pressure, as measured by Doppler, is 74.23mmHg. There is no pulmonic regurgitation present. The aortic root size is normal. The inferior vena cava is mildly dilated. There is no pericardial effusion. CONCLUSIONS -------- 1. The left ventricular size is normal. 2. There is moderate concentric left ventricular hypertrophy. 3. Overall left ventricular systolic function is severely impaired with, an EF between 20 - 25 %. 4. Increased LAP Grade 3 Diastolic Dysfunction. 5. Basal lateral LV wall motion is akinetic. 6. Basal inferior LV wall motion is akinetic. 7. Basal inferoseptal LV wall motion is akinetic. 8. Mid lateral LV wall motion is akinetic. 9. Mid inferior LV wall motion is akinetic. 10. Apical inferior LV wall motion is akinetic. 11. The right ventricular systolic function is moderately impaired. 12. LA is severely dilated >40 ml/m2 13. There is mild aortic valve sclerosis. 14. There is moderate aortic regurgitation. 15. Severe mitral regurgitation is present. 16. Moderate to severe tricuspid regurgitation present. 17. There is severe pulmonary hypertension. 18. There is no pulmonic regurgitation present. 19. The inferior vena cava is mildly dilated. 20. There is no pericardial effusion. [facility] ATTENDANT: Ember Park RDCS
[2019-10-21] MEDS ORDERED: LIDOCAINE 1% INJ 10MG/ML (20 ML MDV) ONE (11:04)
[2019-10-21] MEDS ORDERED: HEPARIN SODIUM 1,000 UN/ML (10ML VL) ONE (11:04)
[2019-10-21] MEDS ORDERED: fentaNYL (PF) 50 MCG/ML 2 ML AMP ONE (11:05)
[2019-10-21] MEDS: IPRATROPIUM-ALBUTEROL 3 ML NEB INHALATION SCH ×3 (11:11→20:33)
[2019-10-21] MEDS ORDERED: IV FLUID CONTINUATION 1,000 ML IV ONE (11:17)
[2019-10-21] MEDS ORDERED: fentaNYL (PF) 50 MCG/ML 2 ML AMP IV ONE (11:28)
[2019-10-21] MEDS ORDERED: LIDOCAINE 1% INJ 10MG/ML (20 ML MDV) SQ ONE (11:31)
[2019-10-21] MEDS ORDERED: IOPAMIDOL-370 125ML BTL INJ ONE (11:50)
[2019-10-21] MEDS ORDERED: IOPAMIDOL-370 100ML BTL INJ ONE (11:58)
[2019-10-21] MEDS ORDERED: CLOPIDOGREL 75 MG TAB ONE ×2 (12:00→12:01)
[2019-10-21] MEDS ORDERED: CLOPIDOGREL 75 MG TAB PO ONE (12:03)
[2019-10-21] MEDS ORDERED: RX INFO: IV CONTRAST WAS GIVEN 1 EACH MISC MISCELLANE PRN (12:19)
[2019-10-21] MEDS ORDERED: SODIUM CHLORIDE 0.9% 1,000 ML IV SCH (12:30)
[2019-10-21] MEDS: SPIRONOLACTONE 25 MG TAB PO SCH (12:49)
--- NOTE | 2019-10-21 13:32 | CONS ---
CONSULTATION PULMONARY/CRITICAL CARE CONSULTATION: DATE OF SERVICE: 10/21/2019 This is a 74-year-old gentleman who presents to the EMS. He apparently came in because of sustained ventricular tachycardia. The patient really is not a particularly good historian. He is very lethargic and sleepy. He denies any chest pain or chest discomfort. He does admit to some shortness of breath. He has a history of CAD and previous bypass grafting in 1999. The patient is going for catheterization today. According to the ER sofya, he does admit to chest pain but it was throughout the day prior to admission. He also apparently had some nausea and vomiting. The patient did take some aspirin and nitroglycerin prior to his arrival in the emergency room given to him by EMS. He apparently was stable en route. He had no chest pain when he was seen in the emergency room. Dr. Eugene called me about this patient. He denied fever or chills. He also denied any cough or phlegm production. There was no nausea, vomiting, diarrhea, or abdominal discomfort. Denied any genitourinary complaints. . HOME MEDICATIONS: Include aspirin, Cardizem, Zetia, Zoloft, Flomax, OxyContin, DuoNeb, metoprolol, and pravastatin. He also takes potassium Cozaar, Lasix and Proscar. ALLERGIES: LEVAQUIN. MEDICAL HISTORY: Reviewed. He apparently has a history of CAD, angina, COPD, hyperlipidemia, hypertension, osteoarthritis, BPH, previous bypass grafting, hyperlipidemia, GERD, hiatal hernia, fibromyalgia, chronic anemia, kidney stones, and depression. SURGICAL HISTORY: Includes previous adenoidectomy, back surgery, cholecystectomy, bypass grafting, catheterization, hernia repair, tonsillectomy, rhinoplasty, left bunionectomy, laparoscopic cholecystectomy, lipoma removal from left shoulder, hernia repair, and colonoscopy 5 years ago. SOCIAL HISTORY: Positive for previous heavy tobacco use. He smoked for at least 50 years. Denies any alcohol or illicit drug use. FAMILY HISTORY: Positive for a mother with cancer and CAD, father with cancer, a brother with congestive heart failure and CAD and a sister with congestive heart failure. REVIEW OF SYSTEMS: CONSTITUTIONAL: Negative. NEUROLOGIC: Negative. HEENT: Negative. CARDIOVASCULAR: Chest pain prior to admission. PULMONARY: Shortness of breath. GI: Vague history of nausea and vomiting. : Negative. RHEUMATOLOGIC: Negative. IMMUNOLOGIC: Negative. ENDOCRINOLOGIC: Negative. DERMATOLOGIC: Negative. PHYSICAL EXAMINATION: Current vital signs are reviewed. Temperature is 99.3, heart rate 73, respiratory rate 16, blood pressure 167/94, mean 118 and 3 L saturation 95%. Appears in no acute distress. HEENT: Examination is grossly unremarkable. Nasal O2 noted. NECK: Supple full range of motion. No adenopathy or thyromegaly. Neck veins are flat. CARDIOVASCULAR: Examination reveals a regular rhythm and rate. S1, S2 normal. No distinct murmur noted. Heart sounds are distant. LUNGS: Reveal mostly clear breath sounds. A few scattered rhonchi. No wheezes or crackles. ABDOMEN: Soft. EXTREMITIES: Intact. No edema. SKIN: Without rash. NEUROLOGIC: Examination reveals the patient who is responsive to verbal stimuli. He is a bit lethargic and sleepy, but he does arouse. His memory is poor. He is on O2 at 6 L by nasal cannula, IV heparin via weight based protocol, amiodarone at 0.5 mg/minute and saline IV at 80 mL an hour. His COVID testing was negative. LABS: Reviewed. White count 9.7, hemoglobin 13.6, hematocrit 42.8, platelet count 167,000. PT 12.9, INR 1.3, and PTT is 38.4. Sodium 136, potassium 5, chloride 106, CO2 15, anion gap is 15. BUN and creatinine were 28 and 0.88. His glucose is 136, bilirubin was 1.4, AST 158, ALT 69, alkaline phosphatase 84. His troponins were 11.6 and 16.7. N terminal proBNP was 43,700 and subsequent N terminal proBNP 45,300. The rest of the labs look okay. Nasopharyngeal swab for Covid-19 infection was negative. A brain CT showed nothing acute. A chest x-ray showed some patchy density in the right suprahilar region and right infrahilar region, and microbiologic studies are currently pending. Medications are reviewed. Currently, the patient is on Tylenol, Xanax, amiodarone, aspirin, Lipitor, Vasotec, Lasix, IV heparin, DuoNeb, Ativan, metoprolol, Narcan p.r.n., nitroglycerin ointment, sublingual nitroglycerin, Protonix, and saline IV. ASSESSMENT: 1. Sustained ventricular tachycardia, currently on amiodarone. 2. Non ST-segment elevation myocardial infarction. 3. Anticipated trip to the heart catheterization laboratory today. 4. COVID-19 negative. 5. History of coronary artery disease. 6. Angina pectoris. 7. Chronic obstructive pulmonary disease from previous heavy tobacco use. 8. Hyperlipidemia. 9. Hypertension. 10.Fibromyalgia. 11.Degenerative joint disease. 12.Benign prostatic hypertrophy. 13.Prior history of bypass grafting. 14.History of anemia. 15.Kidney stones. 16.History of depression. 17.Multiple other medical problems and comorbidities. PLAN: Updrafts are added. The patient is going to the catheterization laboratory today. We will continue to follow. Prognosis is guarded. Additional recommendations and suggestions are forthcoming. MMODL / IJN: [id number] /
--- NOTE | 2019-10-21 13:56 | CC ---
CARDIAC CATHETERIZATION REPORT Mr. Brandt is a 74-year-old male with a known history of coronary artery disease status post coronary artery bypass grafting 2000, history of ascending aortic aneurysm, hypertension, hyperlipidemia, who has been followed by Dr. Mandie Chisholm and presented to the hospital with symptoms of chest discomfort, elevation of his troponin, recurrent episode of ventricular tachycardia. In view of that, recommendation made regarding cardiac catheterization. The procedure as well as risks and complications were discussed with the patient who is in full understanding and agreement. PROCEDURE DESCRIPTION: Patient was brought to clinical laboratory technologist in a fasting semi-sedated state. After receiving fentanyl and Benadryl and achieving moderate conscious sedated state, using Xylocaine anesthesia and Seldinger technique, a 6-Cymraes sheath was introduced in the right femoral artery. Selective right and left coronary angiography performed using 6-Cymraes 5 bend left Slim and 4 bend right Slim catheter. Multiple views of the coronary artery including hemiaxial views were obtained. The right Slim was used to obtain images of the WHITE. Subsequently a 6-Cymraes right coronary artery bypass catheter was used to cannulate the radial bypass to the right PDA. Images of the grafts were obtained. Following that, a 6-Cymraes tight pigtail catheter was introduced into the left ventricle and a 30-degree IVEY view of the left ventricle was obtained. Following that, catheter and sheath were removed. Hemostasis was obtained with deployment of an Angio-Seal. There was no immediate complication. Patient was returned to his room in stable condition. FINDINGS: FLUOROSCOPY: There was severe calcification involving the left anterior descending artery and the left main as well as the right coronary artery. SELECTIVE CORONARY ANGIOGRAM: 1. LEFT MAIN: This is a large-sized vessel bifurcating into the left circumflex, left anterior descending artery, left main coronary artery distally has a 40% to 50% plaque. The rest of the vessel has no high-grade stenosis. 2. LEFT ANTERIOR DESCENDING ARTERY: This vessel is heavily calcified proximally, has a diffuse intimal disease in the mid segment at the takeoff of the diagonal branch in the septal capacitor inspector has an 80% stenosis. Prior to that, it gives rise to a diagonal branch that is subtotally occluded. 3. LEFT CIRCUMFLEX: This is a small nondominant vessel giving rise to one obtuse marginal branch. The takeoff of the left circumflex has a 99% stenosis. There is another plaque of 99% stenosis with slow flow after the takeoff of the diagonal of the first obtuse marginal branch. The caliber of the vessel is small. 4. RIGHT CORONARY ARTERY: This vessel is totally occluded in the mid segment. It is heavily calcified proximally with an area of stenosis of 90% in the proximal segment. There is no significant antegrade flow. 5. WHITE to the LAD: The distal anastomotic site is patent. The flow into the LAD is brisk. There is a plaque in the LAD distally beyond the anastomotic site. The LAD gives collaterals to an an obtuse marginal branch. 6. Radial bypass to the right PDA: The proximal distal anastomotic sites are patent. The flow is brisk. There is no evidence of obstructive disease. 7. Collaterals: There is collaterals from the left coronary system toward what appears to be the right PLV. LEFT VENTRICULOGRAM: Not performed. HEMODYNAMICS: There was no gradient across the aortic valve. The left ventricle end-diastolic pressure was 12-16 mmHg. CONCLUSION: 1. Calcified coronary arteries. 2. Chronically occluded LAD and the right coronary artery. 3. Patent WHITE to the LAD with intimal disease in the distal LAD beyond the anastomotic site. 4. Patent radial bypass to the right coronary artery. 5. Occluded right PLV graft that was documented in 2015. 6. Critical stenosis involving the ostium and the mid left circumflex. RECOMMENDATIONS: After reviewing the images and comparing to the images obtained in 2015, it appears that the progression of disease is predominantly in the left circumflex at the ostium. The vessel is quite small in caliber and at this time I will maximize his medical therapy. Patient will need to be evaluated for ICD implantation. Those findings and recommendations were discussed with the patient and his over the phone and they are in full understanding and agreement. Duration of procedure is 34 minutes. MMODL / IJN: [id number] /
[2019-10-21] MEDS: METOPROLOL TARTRATE 25 MG TAB PO SCH ×2 (15:11→21:05)
[2019-10-21 16:29] LABS: Glucose,Whole Blood 103 mg/dL (75-99)
[2019-10-21] MEDS: LISINOPRIL 2.5 MG TAB PO SCH (21:05)
[2019-10-22 06:04] LABS: Basophils % (A) 0 %; Eosinophils % (A) 0 %; HCT 37.4 % (39.0-53.0); HGB 12.1 gm/dL (13.0-17.5); Lymphocytes % (A) 10 %; MCH 29.2 pg (25.0-35.0); MCHC 32.4 g/dL (31.0-37.0); MCV 90.1 fL (80.0-100.0); Mean Platelet Volume 10.8; Monocytes % (A) 10 %; Neutrophils # (A) 8.4 k/uL (1.3-7.7); Neutrophils % (A) 78 %; Platelet Count 149 k/uL (150-450); RBC 4.15 m/uL (4.30-5.90); WBC 10.7 k/uL (3.8-10.6)
[2019-10-22 06:05] LABS: Albumin 2.9 g/dL (3.5-5.0); Calcium 8.4 mg/dL (8.4-10.2); Potassium 2.9 mmol/L (3.5-5.1); Total Protein 5.6 g/dL (6.3-8.2)
[2019-10-22] MEDS ORDERED: Potassium Replacement Protocol 1 EACH MISC MISCELLANE PRN ×2 (06:19→16:22)
[2019-10-22] MEDS: POTASSIUM CHLORIDE 20 MEQ in WATER FOR INJECTION 1 100ML.BAG IVPB SCH ×3 (06:30→12:49)
[2019-10-22] MEDS: POTASSIUM CHLORIDE ER 20 MEQ TAB.ER PO SCH ×3 (07:19→15:20)
[2019-10-22] MEDS: IPRATROPIUM-ALBUTEROL 3 ML NEB INHALATION SCH ×4 (07:32→18:38)
--- NOTE | 2019-10-22 08:15 | PN ---
PROGRESS NOTE Mr. Brandt is a 74-year-old male with a known history of coronary artery disease, history of ischemic cardiomyopathy, ascending aortic aneurysm, who presented with non ST-segment elevation myocardial infarction and evidence of recurrent ventricular tachycardia. He underwent cardiac catheterization yesterday and was found to have a patent radial graft to the right PDA, patent WHITE to the LAD, subtotally occluded small circumflex that probably was the origin of the event. He is doing well this morning. His breathing is stable. He denies any dizziness or palpitation. He denies any nausea. He is off the IV amiodarone. Medical therapy was recommended. He continues to be at this time on aspirin once a day, Plavix 75 mg daily, Lipitor 80 mg daily, furosemide 40 mg IV q.12 hours, Zestril 2.5 mg twice a day, metoprolol tartrate 25 mg 3 times a day and spironolactone 25 mg daily. PHYSICAL EXAMINATION: Blood pressure 132/50 with a heart rate in 60s. LUNGS: Clear. HEART: Regular in rate and rhythm. S1, S2. No S3 with systolic murmur. No diastolic murmur. No rub. ABDOMEN: Soft, nontender. Positive bowel sounds. No organomegaly. Right groin no hematoma. LAB DATA: Revealed potassium 2.9, BUN and creatinine 29 and 1.0, hemoglobin of 12.1. IMPRESSION: 1. Status post non-STEMI with subtotally occluded small circumflex. 2. Episode of ventricular tachycardia with known history of ischemic cardiomyopathy. 3. Status post coronary artery bypass grafting. 4. Ascending aortic aneurysm. 5. History of hyperlipidemia. 6. History of hypertension. RECOMMENDATIONS: I will decrease the dose of his IV diuretics. I will start him on oral amiodarone. Replace his potassium. Continue with his medical regimen. Will obtain the input of Dr. Perez tomorrow for ICD implantation. In the meantime, we will continue the rest of his medical regimen and depending on his progress, further recommendations will be made. MMODL / IJN: [id number] /
--- NOTE | 2019-10-22 09:44 | P.PN ---
Subjective Progress Note Date: 10/22/19 Principal diagnosis: Ventricular tachycardia, non-ST MO, CAD, change mental status, hypertension, mild respiratory failure, early pulmonary edema, aspiration pneumonia and negative COVID 19. 74-year-old male one of Dr. Hassan patient with past medical history of CAD post CABG in 2019, history of COPD, hypertension, hyperlipidemia and arrhythmia who presented to the emergency department at [facility] on 10/20/2019 after EMS was called to the scene patient apparently has been having intermittent chest pain through the entire day with nausea and vomiting he has been having significant altered mental status with lightheadedness dizziness palpitation with chest discomfort and significant shortness of breath. Patient found to be in sustained ventricular tachycardia at the time. He made it to the emergency department his troponin was 15, EKG showed ventricular tachycardia, patient was started on amiodarone drip and heparin drip cardiology were called and patient was admitted for non-ST MO with nonsustained V. tach. Will be admitted to the ICU patient will be going for heart cath as soon as his stable. 10/21: Patient has done very well ended up going to the forestry laborer result with calcified coronary artery multiple vessel disease but no critical area require any attention at this point. With the ventricular tachycardia patient remain on amiodarone but he will need to have an ICD to avoid any further episodes or attack at this point. Objective - Vital Signs Vital signs: Vital Signs Temp 97.8 F 10/22/19 04:00 Pulse 61 10/22/19 07:00 Resp 14 10/22/19 07:00 BP 132/52 10/22/19 07:00 Pulse Ox 97 10/22/19 07:00 Intake & Output 10/21/19 10/22/19 10/22/19 18:59 06:59 18:59 Intake Total 1024.084 185 10 Output Total 2805 1565 50 Balance -1780.916 -1380 -40 Weight 80 kg Intake: IV 660 185 10 0.9 Normal Saline 110 10 Sodium Chloride 0.9% 1, 450 75 000 ml @ 75 mls/hr IV . [id number] ON LICENSE OF [facility] Rx#:[id number] Sodium Chloride 0.9% 1, 160 000 ml In Empty Bag 1 bag @ 1 ML/KG/HR 80.4 mls/hr IV .[id number] [facility] Rx#: [id number] Intake, IV Titration 364.084 Amount Amiodarone 300 mg In 250 Dextrose 5% in Water 250 ml @ 0.5 MG/MIN 25 mls/hr IV .Q10H ON LICENSE OF [facility] Rx#: [id number] Heparin Sod,Pork in 0.45% 114.084 NaCl 25,000 unit In 0.45 % NaCl 1 250ml.bag @ 12 UNITS/KG/HR 9.906 mls/hr IV .Q24H ON LICENSE OF [facility] Rx#: [id number] Output: Urine 2805 1565 50 Other: Voiding Method Indwelling Catheter Indwelling Catheter # Voids 0 - Exam Review of Systems CONSTITUTIONAL: Well-developed no acute respiratory distress. More dizziness EYES: No icterus sclerae, no conjunctivitis. EARS, NOSE, MOUTH, THROAT, and FACE: No sore throat, lymphadenopathy, carotid bruits or deformity. RESPIRATORY: Significant shortness of breath, cough wheezes. CARDIOVASCULAR: Positive chest pain, positive angina, positive palpitation and arrhythmia, positive PND. GASTROINTESTINAL: No abdominal pain but positive nausea and vomiting no diarrhea slight indigestion as well. GENITOURINARY: Negative for Hematuria or UTI, no kidney stones. INTEGUMENT/BREAST: Negative for any muscular injury with mild osteoarthritis.. HEMATOLOGIC/LYMPHATIC: Negative for bleed or purpura. MUSCULOSKELTAL: Negative for Myalgia or arthralgia. NEURLOGICAL: Alert with mild change mental status. BEHAVIORAL/PSYCH: Negative. ENDOCRINE: Negative. Physical Exam Vitals: General Appearance: Alert, cooperative, no distress, appears stated age. Neck HEENT: Supple, no lymphadenopathy, no thyroid enlargement, no carotid bruits. Lungs: Decreased breath some bilaterally with fine rhonchi and mild expiratory wheezes mild crackles in the bases. Chest Wall: Decrease expansion with deep inspiration no tenderness and no deformity was found on exam, no costochondral pain or discomfort. Heart: Irregular rhythm and rate S1-S2 positive history positive PVCs with systolic murmur. Back: Symmetric, no curvature, ROM normal, no CVA tenderness. Abdomen: Slight abdominal discomfort without tenderness rebound or rigidity. Extremities: Extremities normal, atraumatic, no cyanosis or edema. Pulses: 2+ and symmetric. Skin: Skin color, texture, tugor normal, no rashes or lesions. Neurologic: Alert severely confuse, cranial nerves II through XII intact, no motor deficit, no abnormal balance or gait. - Labs CBC & Chem 7: 10/22/19 05:12 10/22/19 05:12 Labs: Abnormal Lab Results - Last 24 Hours (Table) 10/21/19 10/21/19 10/21/19 Range/Units 09:15 09:15 09:46 WBC (3.8-10.6) k/uL RBC (4.30-5.90) m/uL Hgb (13.0-17.5) gm/dL Hct (39.0-53.0) % Plt Count (150-450) k/uL Neutrophils # (1.3-7.7) k/uL APTT 38.4 H (22.0-30.0) sec Sodium (137-145) mmol/L Potassium (3.5-5.1) mmol/L BUN (9-20) mg/dL POC Glucose (mg/dL) 130 H (75-99) mg/dL AST (17-59) U/L ALT (4-49) U/L Troponin I 16.700 H* (0.000-0.034) ng/mL Total Protein (6.3-8.2) g/dL Albumin (3.5-5.0) g/dL 10/21/19 10/22/19 10/22/19 Range/Units 16:27 05:12 05:12 WBC 10.7 H (3.8-10.6) k/uL RBC 4.15 L (4.30-5.90) m/uL Hgb 12.1 L (13.0-17.5) gm/dL Hct 37.4 L (39.0-53.0) % Plt Count 149 L (150-450) k/uL Neutrophils # 8.4 H (1.3-7.7) k/uL APTT (22.0-30.0) sec Sodium 135 L (137-145) mmol/L Potassium 2.9 L (3.5-5.1) mmol/L BUN 29 H (9-20) mg/dL POC Glucose (mg/dL) 103 H (75-99) mg/dL AST 147 H (17-59) U/L ALT 130 H (4-49) U/L Troponin I (0.000-0.034) ng/mL Total Protein 5.6 L (6.3-8.2) g/dL Albumin 2.9 L (3.5-5.0) g/dL Assessment and Plan Assessment: 1 sustained ventricular tachycardia: Patient was started on amiodarone drip, heparin drip, seen cardiology converted to nonsustained A. fib at this point continue to monitor patient patient be transferred to the ICU. 2 non-ST MO: With significantly elevated troponin, especially with the ventricular tachycardia patient most likely had an MO will be going for heart cath consult cardiology continue nitro continue heparin drip. 3 Post cardiac catheter: Patient has done well had more calcified coronary artery no angioplasty and stent required this point and no open heart surgery require. With the recurrent ventricular tachycardia and ischemic cardiopathy patient would benefit from having an ICD electrophysiology will be consult and patient might have to have his ICD done while he isn't hospital. 4 severe dyspnea and shortness of breath: Combination of early pulmonary edema along with COPD with mild exacerbation, Patient will be on O2 and if needed titrate his oxygen try to keep his pulse ox above 92 percentile if needed BiPAP can be started. And is seen pulmonary and will be treated for ROM gram-negative pneumonia as well patient will be on antibiotics continue up with graft treatment continue O2 with supportive care. 5 COPD with mild exacerbation: Add DuoNeb and Pulmicort MDI. 6 hypertension: Patient has been on hydralazine and clonidine continue to watch blood pressure hold hydralazine and clonidine for now because of hypertension ongoing we will advance and add medication specially MARIANA inhibitor and beta bloc ker gradually. 7 BPH: Patient has been on finasteride and Flomax continue both medication as soon as the blood pressure improved in the meanwhile patient will have Abrams catheter will keep watching patient for any significant urinary retention. 8 abnormal liver function tests: Looks like AST 2 ALT 3-1 even patient declined any alcoholism but precaution and watch symptoms carefully for any withdrawal from alcohol or any delirium tremor at this point repeat liver function tests the next 24 hours. 9 acute kidney injury: Stage I repeat BUN/creatinine continue to hydrate patient and improve hemodynamic status. 10 hyperglycemia: Continue patient on Accu-Chek with sliding scales coverage for now. 11 Covid 19 was not deducted and was excluded at this point. 12 chronic pain syndrome: Patient has been on albuterol and 15 mg patch will be switched to hydrocodone at this point and can use Dilaudid as needed.
--- NOTE | 2019-10-22 11:12 | PN ---
PROGRESS NOTE PULMONARY/CRITICAL CARE PROGRESS NOTE: DATE OF SERVICE: October 22, 2019. INTERVAL HISTORY: 74-year-old gentleman who we saw yesterday in consultation. He presented to the emergency room with sustained ventricular tachycardia. He went to the catheterization laboratory. He was noted to have a subtotally occluded circumflex coronary artery. Dr. Fong decided on medical management for the patient. Did feel that the patient would benefit from evaluation for possible AICD placement. The patient is doing relatively well. He is on 3 L nasal cannula and saline at 10 mL an hour. He does have a history of coronary artery disease with previous bypass grafting in 1999. Currently, the patient is stable. Hemodynamically, he is doing well. Denies any chest pain or chest discomfort. There is no shortness of breath. PHYSICAL EXAMINATION: VITAL SIGNS: Current vital signs are reviewed. Temperature is 97.8. Heart rate 61, respiratory rate 14, blood pressure 132/52. Mean 78. 3 L saturation 97%. GENERAL: Appears in no acute distress. HEENT: Examination is grossly unremarkable. Nasal O2 noted. NECK: Supple. Full range of motion. There is no adenopathy, thyromegaly or neck vein distention. CARDIOVASCULAR: Examination reveals regular rhythm and rate. S1, S2 normal. Heart sounds are distant. LUNGS: Reveal clear. Breath sounds equal. There is no wheezes, rhonchi, or crackles. ABDOMEN: Soft. Bowel sounds are heard. No masses or tenderness. EXTREMITIES are intact. No cyanosis, clubbing, or edema. SKIN: Without rash. NEUROLOGIC: Examination is nonfocal. LABS: Reviewed. White count 10.7, hemoglobin 12.1, hematocrit 37.4, platelet count 149,000. Sodium 135, potassium 2.9, chloride 100, CO2 28, anion gap is 7. BUN and creatinine were 29 and 1.0. The rest of the labs look pretty good. AST 147, ALT 130. Troponin was 16.7 on the . N terminal proBNP 86843. Microbiology is negative. No recent chest x-ray. Medications are reviewed. ASSESSMENT: 1. Sustained ventricular tachycardia, resolved. 2. Non ST-segment elevation myocardial infarction. 3. Status post cardiac catheterization on October 20, a subtotally occluded circumflex coronary artery, without intervention. 4. Covid-19 status, negative. 5. History of coronary artery disease. 6. Angina pectoris. 7. Chronic obstructive pulmonary disease from previous heavy tobacco use. 8. Hyperlipidemia. 9. Hypertension. 10.Fibromyalgia. 11.Degenerative joint disease. 12.Benign prostatic hypertrophy. 13.Status post bypass grafting. 14.History of anemia. 15.Kidney stones. 16.History of depression. PLAN: The patient will be evaluated by Dr. Perez for AICD placement. Dr. Fong's notes were reviewed. The patient did not have any intervention to his circumflex coronary artery. The patient is doing relatively well. He is on 3 L nasal cannula. He is getting saline at 10 mL an hour. Denies any chest pain or chest discomfort. No difficulty breathing. We will continue to follow. MMODL / IJN: [id number] /
[2019-10-22] MEDS: SPIRONOLACTONE 25 MG TAB PO SCH (11:38)
[2019-10-22] MEDS: ATORVASTATIN 80 MG TAB PO SCH (11:38)
[2019-10-22] MEDS: LISINOPRIL 2.5 MG TAB PO SCH ×2 (11:39→20:22)
[2019-10-22] MEDS: METOPROLOL TARTRATE 25 MG TAB PO SCH ×3 (11:39→20:23)
[2019-10-22] MEDS: AMIODARONE 200 MG TAB PO SCH ×2 (11:39→20:23)
[2019-10-22] MEDS: CLOPIDOGREL 75 MG TAB PO SCH (11:39)
[2019-10-22] MEDS: ASPIRIN 81 MG PO SCH (11:39)
[2019-10-22] MEDS: PANTOPRAZOLE 40 MG/10 ML VIAL IVP SCH (11:40)
[2019-10-22] MEDS: FUROSEMIDE 10 MG/ML 4 ML VIAL IV SCH (11:40)
[2019-10-22] MEDS ORDERED: POTASSIUM CHLORIDE ER 20 MEQ TAB.ER PO SCH ×2 (17:00→23:00)
[2019-10-22 22:28] LABS: Magnesium 2.1 mg/dL (1.6-2.3); Phosphorus 2.2 mg/dL (2.5-4.5)
[2019-10-22] MEDS ORDERED: Phosphorus Replacement Protoco 1 EACH MISC MISCELLANE PRN (22:31)
[2019-10-22] MEDS ORDERED: POTASSIUM PHOSPHATE 10 MMOL in SODIUM CHLORIDE 0.9% 250 ML IV ONE (23:00)
[2019-10-23 04:36] LABS: HCT 40.1 % (39.0-53.0); HGB 12.9 gm/dL (13.0-17.5); Hypochromasia Slight; MCHC 32.2 g/dL (31.0-37.0); MCV 93.3 fL (80.0-100.0); Mean Platelet Volume 10.9; Platelet Count 141 k/uL (150-450); RDW 13.8 % (11.5-15.5); WBC 9.9 k/uL (3.8-10.6)
[2019-10-23 04:47] LABS: African American GFR (CKD) >90 (>60 ml/min/1.73 sqM); Anion Gap 7 mmol/L; Blood Urea Nitrogen 28 mg/dL (9-20); Calcium 8.5 mg/dL (8.4-10.2); Carbon Dioxide 23 mmol/L (22-30); Chloride 106 mmol/L (98-107); Glucose 83 mg/dL (74-99); Non-African American GFR(CKD) 85 (>60 ml/min/1.73 sqM); Sodium 136 mmol/L (137-145)
[2019-10-23 04:48] LABS: Potassium 4.2 mmol/L (3.5-5.1)
[2019-10-23] MEDS: IPRATROPIUM-ALBUTEROL 3 ML NEB INHALATION SCH ×4 (08:14→18:42)
--- NOTE | 2019-10-23 08:54 | CDI ---
Documentation Clarification Form Date: 10/23/2019 08:40:57 AM From: Enma Colmenares RN, CCDS Admit Date: 10/20/2019 09:58:00 PM Patient Name: Trino Brandt Visit Number: [id number] ATTENTION: The Clinical Documentation Specialists (CDI) and [facility] Coding Staff appreciate your assistance in clarifying documentation. Please respond to the clarification below the line at the bottom and electronically sign. The CDI & [facility] Coding staff will review the response and follow-up if needed. Please note: Queries are made part of the Legal Health Record. If you have any questions, please contact the author of this message via ITS. Dr. Angel Grier The patient is noted to have an elevated BNP, a low EF, and NSTEMI this admission and is being treated with diuretics, please provide clinical significance. History/Risk Factors: CAD, CP, COPD, Hyperlipidemia, HTN, CABG, Anemia Clinical Indicators: NSTEMI this admission 10/19 2102 Admission: VS/Pulse OX: temp 98.3, HR 128, RR 20, B/P 169/114, Spo2 98% RA 10/19-10/20 BNP: 43,700/45,300 10/20 Echocardiogram Results: EF 20-25% 10/19 Chest X Ray:"There is increased patchy density right suprahilar and right infrahilar regions which may reflect developing pneumonia." Treatment: Lasix 40 mg IVP QD Aldactone 25 mg PO QD Amiordarone 200 mg PO QD Zestil 2.5 mg PO BID Lopressor 25 mg PO TID ASA 81 mg PO QD In your professional opinion, can you please clarify the acuity and type of CHF if known? Systolic Heart Failure: Acute Chronic Acute on Chronic Systolic & Diastolic Heart Failure: Acute Chronic Acute on Chronic Heart Failure Unable to Determine Other, please specify (Last Revision: September 2017) POA A/C [facility]
[2019-10-23] MEDS: PANTOPRAZOLE 40 MG/10 ML VIAL IVP SCH (09:42)
[2019-10-23] MEDS: CLOPIDOGREL 75 MG TAB PO SCH (09:43)
[2019-10-23] MEDS: AMIODARONE 200 MG TAB PO SCH ×2 (09:43→22:16)
[2019-10-23] MEDS: ASPIRIN 81 MG PO SCH (09:43)
[2019-10-23] MEDS: METOPROLOL TARTRATE 25 MG TAB PO SCH ×3 (09:43→22:16)
[2019-10-23] MEDS: FUROSEMIDE 10 MG/ML 4 ML VIAL IV SCH (09:43)
[2019-10-23] MEDS: ATORVASTATIN 80 MG TAB PO SCH (09:43)
--- NOTE | 2019-10-23 09:45 | CDI ---
Documentation Clarification Form Date: 10/23/2019 08:55:59 AM From: Enma Colmenares RN, CCDS Admit Date: 10/20/2019 09:58:00 PM Patient Name: Trino Brandt Visit Number: [id number] ATTENTION: The Clinical Documentation Specialists (CDI) and [facility] Coding Staff appreciate your assistance in clarifying documentation. Please respond to the clarification below the line at the bottom and electronically sign. The CDI & [facility] Coding staff will review the response and follow-up if needed. Please note: Queries are made part of the Legal Health Record. If you have any questions, please contact the author of this message via ITS. Dr. Grier The patient presented with a significantly elevated B/P and was treated with medications for HR control, which also improved B/P. Please provide clinical significance. History/Risk Factors: HTN, CAD, CABG Clinical Indicators: 10/21 Attending Progress Note:" hypertension: Patient has been on hydralazine and clonidine continue to watch blood pressure hold hydralazine and clonidine for now because of hypertension ongoing we will advance and add medication specially MAIRANA inhibitor and beta rox gradually." 10/19 CXR: "There is increased patchy density right suprahilar and right infrahilar regions which may reflect developing pneumonia." 10/20 Echo: EF 20-25% moderate concentric LVH, Increased LAP Grade 3 Diastolic Dysfunction. Basal lateral LV wall motion is akinetic. Basal inferior LV wall motion is akinetic. Basal inferoseptal LV wall motion is akinetic. Mid lateral LV wall motion is akinetic. Mid inferior LV wall motion is akinetic. Apical inferior LV wall motion is akinetic. The right ventricle is normal in size. The right ventricular systolic function is moderately impaired.LA is severely dilated >40 ml/m2 10/19 B/P& HR 210: 169/114 & 128 212: 185/110 & 128 215: 169/104 & 129 220: 172/107 & 125 221: 180/112 & 109 2229: 154/96 & 122 2235: 168/98 & 122 2300 157/77 & 79 Treatment: IV Amio gtt protocol 10/19 MS 2mg IVP OT 10/19 Lasix 40mg IVP Consults: Cardiology In your professional opinion, can you please further specify the Hypertension. Hypertensive Emergency Hypertensive Urgency Other, please specify Unable to determine Please also specify if it was POA and if the condition is resolved (Last Revision: September 2017) Emergency, POA MTDD
[2019-10-23 10:07] LABS: Phosphorus 2.9 mg/dL (2.5-4.5)
--- NOTE | 2019-10-23 11:11 | P.PN ---
Subjective Progress Note Date: 10/23/19 74-year-old male one of Dr. Hassan patient with past medical history of CAD post CABG in 2019, history of COPD, hypertension, hyperlipidemia and arrhythmia who presented to the emergency department at [facility] on 10/20/2019 after EMS was called to the scene patient apparently has been having intermittent chest pain through the entire day with nausea and vomiting he has been having significant altered mental status with lightheadedness dizziness palpitation with chest discomfort and significant shortness of breath. Patient found to be in sustained ventricular tachycardia at the time. He made it to the emergency department his troponin was 15, EKG showed ventricular tachycardia, patient was started on amiodarone drip and heparin drip cardiology were called and patient was admitted for non-ST CO with nonsustained V. tach. Will be admitted to the ICU patient will be going for heart cath as soon as his stable. 10/21: Patient has done very well ended up going to the cath lab technologist result with calcified coronary artery multiple vessel disease but no critical area require any attention at this point. With the ventricular tachycardia patient remain on amiodarone but he will need to have an ICD to avoid any further episodes or attack at this point. 10/22: Patient remains in intensive care unit. He denies any chest pain, shortness of breath, lightheadedness, palpitations. He states he has a cough. He is using incentive spirometry. He had a bowel movement last evening. Cardiology is consulted Dr. Beck for AICD placement. Amiodarone drip has been transitioned to oral. Patient is continued on IV Lasix 40 mg daily. Echocardiogram reveals EF of 20-25% with moderate concentric left ventricular hypertrophy, mild aortic valve sclerosis, moderate aortic regurgitation, severe mitral regurgitation, moderate to severe tricuspid regurgitation, severe pulmonary hypertension Objective - Vital Signs Vital signs: Vital Signs Temp 98 F 10/23/19 04:00 Pulse 69 10/23/19 08:24 Resp 10 L 10/23/19 07:00 BP 164/82 10/23/19 07:00 Pulse Ox 96 10/23/19 07:00 Intake & Output 10/22/19 10/23/19 10/23/19 18:59 06:59 18:59 Intake Total 120 370 10 Output Total 1530 450 35 Balance -1410 -80 -25 Weight 75.6 kg Intake: IV 120 370 10 0.9 Normal Saline 120 120 10 Potassium Phosphate 10 250 mmol In Sodium Chloride 0 .9% 250 ml @ 125 mls/hr IV ONCE ONE Rx#:[id number] Output: Urine 1530 450 35 Other: Voiding Method Indwelling Catheter Indwelling Catheter # Bowel Movements 1 - Exam Review of Systems CONSTITUTIONAL: Well-developed no acute respiratory distress. Denies dizziness EYES: No icterus sclerae, no conjunctivitis. EARS, NOSE, MOUTH, THROAT, and FACE: No sore throat, lymphadenopathy, carotid bruits or deformity. RESPIRATORY: Denies shortness of breath, reports cough denies wheezes. CARDIOVASCULAR: Denies chest pain, denies angina, denies palpitation and arrhythmia, denies PND. GASTROINTESTINAL: No abdominal pain denies nausea and vomiting no diarrhea. GENITOURINARY: Negative for Hematuria or UTI, no kidney stones. INTEGUMENT/BREAST: Negative for any muscular injury with mild osteoarthritis.. HEMATOLOGIC/LYMPHATIC: Negative for bleed or purpura. MUSCULOSKELTAL: Negative for Myalgia or arthralgia. NEURLOGICAL: Alert with mild change mental status. BEHAVIORAL/PSYCH: Negative. ENDOCRINE: Negative. Physical Exam General Appearance: Alert, cooperative, no distress, appears stated age. Neck HEENT: Supple, no lymphadenopathy, no thyroid enlargement, no carotid bruits. Lungs: Decreased breath some bilaterally, clear to auscultation. Chest Wall: Decrease expansion with deep inspiration no tenderness and no deformity was found on exam, no costochondral pain or discomfort. Heart: Regular rhythm and rate S1-S2 positive history positive PVCs with systolic murmur. Back: Symmetric, no curvature, ROM normal, no CVA tenderness. Abdomen: Slight abdominal discomfort without tenderness rebound or rigidity. Extremities: Extremities normal, atraumatic, no cyanosis or edema. Pulses: 2+ and symmetric. Skin: Skin color, texture, tugor normal, no rashes or lesions. Neurologic: Alert severely confuse, cranial nerves II through XII intact, no motor deficit, no abnormal balance or gait. - Labs CBC & Chem 7: 10/23/19 04:06 10/23/19 03:47 Labs: Abnormal Lab Results - Last 24 Hours (Table) 10/22/19 10/23/19 10/23/19 Range/Units 20:46 03:47 04:06 Hgb 12.9 L (13.0-17.5) gm/dL Plt Count 141 L (150-450) k/uL Sodium 136 L (137-145) mmol/L BUN 28 H (9-20) mg/dL Phosphorus 2.2 L (2.5-4.5) mg/dL Assessment and Plan Plan: 1. Episode of ventricular tachycardia. Amiodarone drip transitioned to oral 200 mg twice daily. Cardiology consult appreciated. 2. Acute non-ST elevated myocardial infarction status post heart catheterization with patent radial graft to the right PDA, patent WHITE to the LAD, some totally occluded small circumflex that probably was the origin of the event. Continue aspirin 81 mg daily, Lipitor 80 mg daily, Plavix 75 mg daily, Lasix 40 mg IV daily, Lopressor 25 mg twice daily, lisinopril 2.5 mg twice daily. 3. Acute on chronic systolic heart failure with ischemic cardiomyopathy with EF of 20-25%. Cardiology to discuss with Dr. Perez possibility of AICD. Continue IV Lasix, Aldactone 25 mg daily, lisinopril, Lopressor. 4. History of coronary artery disease status post coronary artery bypass grafting. Continue as in #1. 5. Ascending aortic aneurysm, stable. 6. Hypertensive urgency (POA) with history of Hypertension. Continue lisinopril, Lopressor, amiodarone. 7. Hyperlipidemia. Continue statin 8. COPD with history of tobacco use and dependence. 9. Benign prostatic hypertrophy. 10. Thrombocytopenia. Continue to monitor. 10. Generalized anxiety disorder. Continue Xanax 2.5 mg every 6 hours as needed. 12. Elevated liver function tests of unclear etiology. Possibly related to shock liver from V. tach and non-ST CO. Continue to monitor. 13. Chronic kidney disease stage II. 14. Valvular heart disease with moderate aortic regurgitation, severe mitral regurgitation, moderate to severe tricuspid regurgitation. 15. Severe pulmonary hypertension. 16. Pneumonia ruled out by pulmonary medicine. 17. COVID-19 infection not present. Discharge plan: home. Impression and plan of care have been directed as dictated by the signing physician. April Taylor nurse practitioner acting as scribe for signing physician.
[2019-10-23] MEDS: LISINOPRIL 2.5 MG TAB PO SCH (11:24)
[2019-10-23] MEDS: SPIRONOLACTONE 25 MG TAB PO SCH (11:24)
--- NOTE | 2019-10-23 11:30 | P.PN ---
Subjective Progress Note Date: 10/23/19 Is a 74-year-old male patient who presented emergency department with a nonsustained ventricular tachycardia. The patient is known to have a previous history of coronary artery disease and he has undergone previous bypass surgery 2019 along with history of hypertension, hyperlipidemia and history of COPD, ischemic cardiomyopathy, ascending aortic aneurysm. The patient was brought in via EMS because of chest pain with nausea and emesis and some altered mentation along with some lightheadedness and dizziness and palpitation. The patient was found to have a sustained ventricular tachycardia. In the ED, his troponin was 15 and EKG was consistent with V. tach. He was started on amiodarone drip. He was started on IV heparin. He was diagnosed having a acute non-STEMI along with nonsustained V. tach. He underwent cardiac catheterization and he was found to have calcified coronary arteries with multiple vessel disease but there was no critical area requiring any attention at that point in time. He was brought into the ICU for further monitoring. The patient will need an AICD implantation. This was recommended to the patient and to his family. In view of the cardiac catheterization the patient has a patent radial graft to the right PDA and patent WHITE to LAD and circumflex totally occluded small circumflex that was probably the origin of the event. After being dictated amiodarone, the patient was kept on a combination of aspirin and Plavix in addition to metoprolol 25 mg 3 times a day and high-dose statins in the form of Lipitor 80 mg by mouth daily. He was diuresed IV Lasix and the dose was reduced by cardiology. He is still on amiodarone 200 mg by mouth twice a day. He is also on Aldactone 25 mg by mouth daily. Echocardiogram was completed on 10/21/2019 and it showed ischemic cardiomyopathy with severely impaired LV with an ejection fraction of 20-25% along with that there is grade 3 diastolic dysfunction, multiple segmental wall motion abnormalities, RV is moderately impaired and there is evidence of severe pulmonary hypertension with a PA pressure of 74 along with moderate to severe tricuspid regurgitation. The chest x-ray done at a time of admission showed increased patchy right perihilar density and the right infrahilar area and the CAT scan of the brain showed no acute intracranial abnormalities. Clinically, the patient is looking well. He is resting comfortably in bed. He remains on Lasix 40 mg IV every 24 hours. No respiratory distress. Awaiting his evaluation by electrophysiology regarding the possibility of insertion of AICD. Objective - Vital Signs Vital signs: Vital Signs Temp 98 F 10/23/19 04:00 Pulse 69 10/23/19 08:24 Resp 10 L 10/23/19 07:00 BP 164/82 10/23/19 07:00 Pulse Ox 96 10/23/19 07:00 Intake & Output 10/22/19 10/23/19 10/23/19 18:59 06:59 18:59 Intake Total 120 370 10 Output Total 1530 450 35 Balance -1410 -80 -25 Weight 75.6 kg Intake: IV 120 370 10 0.9 Normal Saline 120 120 10 Potassium Phosphate 10 250 mmol In Sodium Chloride 0 .9% 250 ml @ 125 mls/hr IV ONCE ONE Rx#:[id number] Output: Urine 1530 450 35 Other: Voiding Method Indwelling Catheter Indwelling Catheter Indwelling Catheter # Bowel Movements 1 - Exam Gen. appearance, comfortable likely distress Head exam was generally normal. There was no scleral icterus or corneal arcus. Mucous membranes were moist. Neck was supple and with jugular venous distension, thyromegaly, or carotid bruits. Carotids were easily palpable bilaterally. There was no adenopathy.There is some mild JVDs noted at 30 head elevation Lungs are clear, Lungs were clear to auscultation and percussion, and with normal diaphragmatic excursion. No wheezes or rales were noted. heart sounds are regular, Positive S1-S2 and there is no S3 or any murmurs noted. No rubs Abdominal exam revealed normal bowel sounds. The abdomen was soft, non-tender, and without masses, organomegaly, or appreciable enlargement of the abdominal aorta. Examination of the extremities revealed easily palpable radial, femoral and pedal pulses. There was no cyanosis, clubbing or edema.And there is no hematoma noted in the right groin area and the cath site is dry clean and intact Examination of the skin revealed no evidence of significant rashes, suspicious appearing nevi or other concerning lesions. Neurologically awake and alert and is no focal neurological deficit - Labs CBC & Chem 7: 10/23/19 04:06 10/23/19 03:47 Labs: Abnormal Lab Results - Last 24 Hours (Table) 10/22/19 10/23/19 10/23/19 Range/Units 20:46 03:47 04:06 Hgb 12.9 L (13.0-17.5) gm/dL Plt Count 141 L (150-450) k/uL Sodium 136 L (137-145) mmol/L BUN 28 H (9-20) mg/dL Phosphorus 2.2 L (2.5-4.5) mg/dL Assessment and Plan Plan: 1 acute non-STEMI, results of the cardiac catheterization was noted and the patient was found to have a patent WHITE to LAD and a subtotally occluded circumflex which was probably the culprit vessel underlying this current event 2 ventricular tachycardia, nonsustained, in a setting of an acute MN with underlying ischemic cardiomyopathy 3 multivessel coronary artery disease with previous coronary artery bypass surgery ischemic cardiomyopathy with severely impaired LV function with an ejection fraction of 20-25% in addition tomoderate to severe tricuspid regurgitation and severe pulmonary hypertension and multiple segmental wall motion abnormalities 4 COPD 5 shortness of breath, multifactorial as the patient is COPD and and same time has severe cardiomyopathy with a component of mild four-vessel congestion. With IV Lasix and currently is also on Aldactone 6 hypertension 7 BPH 8 hyperlipidemia 9 hypertension 10 ascending thoracic aortic aneurysm measuring 4.8 cm at the root 11 bilateral renal cysts 12 BPH 13 history of nephrolithiasis/kidney stones 14 history of depression 15 history of fibromyalgia Plan cardiac medications and management per cardiology The patient is being considered for an AICD placement regarding the above- mentioned events Continue monitoring the patient's cardiac rhythm Diuretics per cardiology and the patient remains on IV Lasix 40 mg daily 24 hours Continue Aldactone We'll follow
[2019-10-23] MEDS: POTASSIUM CHLORIDE ER 20 MEQ TAB.ER PO SCH ×2 (14:18→15:50)
--- NOTE | 2019-10-23 15:52 | PN ---
PROGRESS NOTE CARDIOLOGY FOLLOW-UP NOTE: Trino is a 74-year-old gentleman who was admitted to the hospital with symptomatic ventricular tachycardia, underwent cardiac catheterization and was advised medical therapy. The patient remained on amiodarone and remained fairly stable. The plan at this stage is to have evaluation by Dr. Perez for possible AICD. An echocardiogram on this admission revealed severe LV systolic dysfunction. At the moment he is doing well and is free of symptoms. On exam, comfortable at rest. Vital signs are stable. There is no jugular venous distention. Chest exam reveals good air entry bilaterally. Heart exam reveals first and second heart sounds. No gallop. No murmur. Abdomen is soft. Examination of extremities did not reveal any edema. Peripheral pulses are felt. The patient is currently on Cordarone 200 b.i.d., aspirin, Lipitor, Plavix, Lasix, Zestril and Lopressor. Labs show that the hemoglobin is 12.9, potassium is 4.2, creatinine is 0.86. ASSESSMENT: 1. Ischemic cardiomyopathy with severe left ventricular dysfunction. 2. Ventricular tachycardia. 3. Coronary artery disease, status post coronary artery bypass grafting. 4. Uncontrolled hypertension. PLAN: I will switch the Lasix to p.o., increase the dose of Zestril to 5 b.i.d., add amlodipine if necessary, continue the Lopressor. MMODL / IJN: [id number] /
[2019-10-23] MEDS ORDERED: LISINOPRIL 5 MG TAB PO SCH (21:00)
[2019-10-24 06:39] LABS: HCT 41.4 % (39.0-53.0); MCH 28.7 pg (25.0-35.0); MCHC 31.4 g/dL (31.0-37.0); MCV 91.5 fL (80.0-100.0); Mean Platelet Volume 10.2; Platelet Count 174 k/uL (150-450); RBC 4.52 m/uL (4.30-5.90); WBC 10.6 k/uL (3.8-10.6)
[2019-10-24 06:58] LABS: African American GFR (CKD) >90 (>60 ml/min/1.73 sqM); Anion Gap 6 mmol/L; Blood Urea Nitrogen 23 mg/dL (9-20); Carbon Dioxide 26 mmol/L (22-30); Chloride 105 mmol/L (98-107); Glucose 96 mg/dL (74-99); Magnesium 1.9 mg/dL (1.6-2.3); Non-African American GFR(CKD) 85 (>60 ml/min/1.73 sqM); Phosphorus 3.1 mg/dL (2.5-4.5); Sodium 137 mmol/L (137-145)
[2019-10-24] MEDS: IPRATROPIUM-ALBUTEROL 3 ML NEB INHALATION SCH ×4 (07:25→20:56)
[2019-10-24] MEDS: CLOPIDOGREL 75 MG TAB PO SCH (08:49)
[2019-10-24] MEDS: ATORVASTATIN 80 MG TAB PO SCH (08:49)
[2019-10-24] MEDS: FUROSEMIDE 40 MG TAB PO SCH (08:49)
[2019-10-24] MEDS: SPIRONOLACTONE 25 MG TAB PO SCH (08:49)
[2019-10-24] MEDS: LISINOPRIL 10 MG TAB PO SCH ×2 (08:49→20:19)
[2019-10-24] MEDS: METOPROLOL TARTRATE 25 MG TAB PO SCH ×3 (08:49→22:52)
[2019-10-24] MEDS: PANTOPRAZOLE 40 MG/10 ML VIAL IVP SCH (08:49)
[2019-10-24] MEDS: AMIODARONE 200 MG TAB PO SCH ×2 (08:49→20:19)
[2019-10-24] MEDS: ASPIRIN 81 MG PO SCH (08:49)
--- NOTE | 2019-10-24 10:08 | P.PN ---
Subjective Progress Note Date: 10/24/19 74-year-old male one of Dr. Hassan patient with past medical history of CAD post CABG in 2019, history of COPD, hypertension, hyperlipidemia and arrhythmia who presented to the emergency department at [facility] on 10/20/2019 after EMS was called to the scene patient apparently has been having intermittent chest pain through the entire day with nausea and vomiting he has been having significant altered mental status with lightheadedness dizziness palpitation with chest discomfort and significant shortness of breath. Patient found to be in sustained ventricular tachycardia at the time. He made it to the emergency department his troponin was 15, EKG showed ventricular tachycardia, patient was started on amiodarone drip and heparin drip cardiology were called and patient was admitted for non-ST MS with nonsustained V. tach. Will be admitted to the ICU patient will be going for heart cath as soon as his stable. 10/21: Patient has done very well ended up going to the [facility] result with calcified coronary artery multiple vessel disease but no critical area require any attention at this point. With the ventricular tachycardia patient remain on amiodarone but he will need to have an ICD to avoid any further episodes or attack at this point. 10/22: Patient remains in intensive care unit. He denies any chest pain, shortness of breath, lightheadedness, palpitations. He states he has a cough. He is using incentive spirometry. He had a bowel movement last evening. Cardiology is consulted Dr. Beck for AICD placement. Amiodarone drip has been transitioned to oral. Patient is continued on IV Lasix 40 mg daily. Echocardiogram reveals EF of 20-25% with moderate concentric left ventricular hypertrophy, mild aortic valve sclerosis, moderate aortic regurgitation, severe mitral regurgitation, moderate to severe tricuspid regurgitation, severe pulmonary hypertension 10/23: Patient is seen today on the cardiac stepdown unit. He is waiting for evaluation by Dr. Perez for AICD. Pulse ox is 91-92% on room air. He still has a cough that's dry and nonproductive. Incentive spirometry added. Cardiology has changed Lasix to oral. Blood pressure remains elevated and lisinopril will be increased to 10 mg twice daily. Patient has been afebrile, heart rate in the 70s and 80s, blood pressure 175/80. monitor worker has been a sinus rhythm. Objective - Vital Signs Vital signs: Vital Signs Temp 98.5 F 10/24/19 04:00 Pulse 72 10/24/19 07:37 Resp 20 10/24/19 04:00 BP 175/80 10/24/19 04:00 Pulse Ox 96 10/24/19 04:00 Intake & Output 10/23/19 10/24/19 10/24/19 18:59 06:59 18:59 Intake Total 1100 250 Output Total 1185 200 Balance -85 50 Weight 72.1 kg Intake: IV 100 10 0.9 Normal Saline 100 10 Oral 1000 240 Output: Urine 1185 200 Other: Voiding Method Indwelling Catheter Toilet # Voids 1 # Bowel Movements 1 - Exam Review of Systems CONSTITUTIONAL: Well-developed no acute respiratory distress. Denies dizziness. Denies fever, denies chills. EYES: No icterus sclerae, no conjunctivitis. EARS, NOSE, MOUTH, THROAT, and FACE: No sore throat, lymphadenopathy, carotid bruits or deformity. RESPIRATORY: Denies shortness of breath, reports cough denies wheezes. CARDIOVASCULAR: Denies chest pain, denies angina, denies palpitation and arrhythmia, denies PND. GASTROINTESTINAL: No abdominal pain denies nausea and vomiting no diarrhea. GENITOURINARY: Negative for Hematuria or UTI, no kidney stones. INTEGUMENT/BREAST: Negative for any muscular injury with mild osteoarthritis.. HEMATOLOGIC/LYMPHATIC: Negative for bleed or purpura. MUSCULOSKELTAL: Negative for Myalgia or arthralgia. NEURLOGICAL: Alert with mild change mental status. BEHAVIORAL/PSYCH: Negative. ENDOCRINE: Negative. Physical Exam General Appearance: Alert, cooperative, no distress, appears stated age. Neck HEENT: Supple, no lymphadenopathy, no thyroid enlargement, no carotid bruits. Lungs: Decreased breath some bilaterally, crackles on the right side. Chest Wall: Decrease expansion with deep inspiration no tenderness and no deformity was found on exam, no costochondral pain or discomfort. Heart: Regular rhythm and rate S1-S2 positive history positive PVCs with systolic murmur. Back: Symmetric, no curvature, ROM normal, no CVA tenderness. Abdomen: Slight abdominal discomfort without tenderness rebound or rigidity. Extremities: Extremities normal, atraumatic, no cyanosis or edema. Pulses: 2+ and symmetric. Skin: Skin color, texture, tugor normal, no rashes or lesions. Neurologic: Alert severely confuse, cranial nerves II through XII intact, no motor deficit, no abnormal balance or gait. - Labs CBC & Chem 7: 10/24/19 06:16 10/24/19 06:16 Labs: Abnormal Lab Results - Last 24 Hours (Table) 10/24/19 Range/Units 06:16 BUN 23 H (9-20) mg/dL Assessment and Plan Plan: 1. Episode of ventricular tachycardia. Amiodarone drip transitioned to oral 200 mg twice daily. Cardiology consult appreciated. Await input from Dr. Perez. 2. Acute non-ST elevated myocardial infarction status post heart catheterization with patent radial graft to the right PDA, patent WHITE to the LAD, some totally occluded small circumflex that probably was the origin of the event. Continue aspirin 81 mg daily, Lipitor 80 mg daily, Plavix 75 mg daily, Lasix 40 mg IV daily, Lopressor 25 mg twice daily, lisinopril 2.5 mg twice daily. 3. Acute on chronic systolic heart failure with ischemic cardiomyopathy with EF of 20-25%. Cardiology to discuss with Dr. Perez possibility of AICD. Continue IV Lasix, Aldactone 25 mg daily, lisinopril, Lopressor. 4. History of coronary artery disease status post coronary artery bypass grafting. Continue as in #1. 5. Ascending aortic aneurysm, stable. 6. Hypertensive urgency (POA) with history of Hypertension. Continue lisinop ril, Lopressor, amiodarone. 7. Hyperlipidemia. Continue statin 8. COPD with history of tobacco use and dependence. 9. Benign prostatic hypertrophy. 10. Thrombocytopenia. Continue to monitor. 10. Generalized anxiety disorder. Continue Xanax 2.5 mg every 6 hours as needed. 12. Elevated liver function tests of unclear etiology. Possibly related to shock liver from V. tach and non-ST MS. Continue to monitor. 13. Chronic kidney disease stage II. 14. Valvular heart disease with moderate aortic regurgitation, severe mitral regurgitation, moderate to severe tricuspid regurgitation. 15. Severe pulmonary hypertension. 16. Pneumonia ruled out by pulmonary medicine. 17. COVID-19 infection not present. Discharge plan: home. Impression and plan of care have been directed as dictated by the signing physician. April Taylor nurse practitioner acting as scribe for signing albino montgomery.
--- NOTE | 2019-10-24 11:49 | PN ---
PROGRESS NOTE Trino is a 74-year-old gentleman who is admitted to hospital with ventricular tachycardia. He underwent cardiac catheterization and was advised medical therapy, has ischemic cardiomyopathy. Currently on amiodarone, doing well clinically. Denies chest pain or difficulty in breathing. There is no leg edema. Patient is on aspirin, Lipitor, Plavix, Lasix, Zestril, Lopressor, Aldactone, and nebulizer. PHYSICAL EXAM: Comfortable at rest. Vital signs are stable. There is no jugular venous distention. Carotid upstroke is normal. There is no bruit. Chest exam reveals good air entry bilaterally. Heart exam reveals first and second heart sounds. No gallop. Exam of extremities did not reveal any edema. Peripheral pulses are palpable. ASSESSMENT: 1. Ventricular tachycardia, ischemic cardiomyopathy, non ST-segment elevation MO. 2. History of ascending aortic aneurysm. PLAN: We are awaiting input from EP regarding device. Patient carries a history of ascending aortic aneurysm and Dr. BETI Chihsolm, his primary outer diameter technician wanted to have a CTA of the thoracic aorta to evaluate the aneurysm and will get it done on this admission. MMODL / IJN: [id number] /
--- NOTE | 2019-10-24 12:53 | CT ---
EXAMINATION TYPE: CT angio chest DATE OF EXAM: 10/24/2019 12:37 PM COMPARISON: 03/16/2018 HISTORY: thoracic aneurysm CT DLP: 952.6 mGycm Automated exposure control for dose reduction was used. CONTRAST: CTA scan of the thorax is performed without and with IV Contrast, patient injected with 100 mL of Iso arelis 370, pulmonary embolism protocol. . FINDINGS: LUNGS: There are bilateral [id number] sized pleural effusions with interstitial pattern sugges tive of CHF Subsegmental areas of consolidation most typical of atelectasis. Degree of basilar and ce ntral bronchiectasis noted and there is underlying chronic obstructive pulmonary disease. No pneumoth orax. Poststernotomy changes noted. MEDIASTINUM: There is a three-vessel arch. The ascending thoracic aorta at the level of the main pulm onary artery is 4.7 cm. The main pulmonary artery the bifurcation is 3.8 cm. Maximum transverse [address]ame ter of the aorta is the ascending thoracic aorta above the root measuring 4.9 x 5.0 cm. And previousl y measured maximal dimension of 4.8 cm The aorta tapers through its course. The descending thoracic a cyndie at the level of the niki the diaphragm measures 2.9 cm AP. Atherosclerotic changes noted. The he art is enlarged. Coronary artery disease and cardiomegaly noted. OTHER: Postsurgical changes are seen compatible with previous cholecystectomy. Simple cyst involving the upper pole the right kidney. Small hiatal hernia noted. Hypertrophic and degenerative changes of the vertebral column. Chronic rib deformities suggest remote trauma. Upper abdominal aorta measures 3.3 cm compatible with mild aneurysmal dilation. Arthropathy of the shoulders. Postsurgical change involving the cervical spine correlate clinically. IMPRESSION: 1. Ascending aortic aneurysm measuring 5.0 x 4.9 cm and previously measuring 4.8 cm in maximal dimens ion. 2. Severe cardiomegaly with coronary artery atherosclerotic changes. Small amount of bilateral pleura l effusions correlate for CHF. Otherwise consider pneumonitis. 3. Mild aneurysmal dilation of the proximal abdominal aorta measuring 3.3 cm. 4. Pulmonary arteries are somewhat prominent correlate for pulmonary arterial hypertension
--- NOTE | 2019-10-24 14:24 | P.PN ---
Subjective Progress Note Date: 10/24/19 Is a 74-year-old male patient who presented emergency department with a nonsustained ventricular tachycardia. The patient is known to have a previous history of coronary artery disease and he has undergone previous bypass surgery 2019 along with history of hypertension, hyperlipidemia and history of COPD, ischemic cardiomyopathy, ascending aortic aneurysm. The patient was brought in via EMS because of chest pain with nausea and emesis and some altered mentation along with some lightheadedness and dizziness and palpitation. The patient was found to have a sustained ventricular tachycardia. In the ED, his troponin was 15 and EKG was consistent with V. tach. He was started on amiodarone drip. He was started on IV heparin. He was diagnosed having a acute non-STEMI along with nonsustained V. tach. He underwent cardiac catheterization and he was found to have calcified coronary arteries with multiple vessel disease but there was no critical area requiring any attention at that point in time. He was brought into the ICU for further monitoring. The patient will need an AICD implantation. This was recommended to the patient and to his family. In view of the cardiac catheterization the patient has a patent radial graft to the right PDA and patent WHITE to LAD and circumflex totally occluded small circumflex that was probably the origin of the event. After being dictated amiodarone, the patient was kept on a combination of aspirin and Plavix in addition to metoprolol 25 mg 3 times a day and high-dose statins in the form of Lipitor 80 mg by mouth daily. He was diuresed IV Lasix and the dose was reduced by cardiology. He is still on amiodarone 200 mg by mouth twice a day. He is also on Aldactone 25 mg by mouth daily. Echocardiogram was completed on 10/21/2019 and it showed ischemic cardiomyopathy with severely impaired LV with an ejection fraction of 20-25% along with that there is grade 3 diastolic dysfunction, multiple segmental wall motion abnormalities, RV is moderately impaired and there is evidence of severe pulmonary hypertension with a PA pressure of 74 along with moderate to severe tricuspid regurgitation. The chest x-ray done at a time of admission showed increased patchy right perihilar density and the right infrahilar area and the CAT scan of the brain showed no acute intracranial abnormalities. Clinically, the patient is looking well. He is resting comfortably in bed. He remains on Lasix 40 mg IV every 24 hours. No respiratory distress. Awaiting his evaluation by electrophysiology regarding the possibility of insertion of AICD. On today's evaluation of 10/24/2019, the patient was released from the intensive care unit and currently is on the medical floor. No signs of any respiratory distress pain no chest pain. No cardiac arrhythmias. The patient is awaiting an AICD placement after being given with by EP. The patient had a repeat CT a of the thoracic aorta which showed aneurysmal dilatation of the ascending aorta measuring 5.0 x 4.9 cm in size and this was previously measuring 4.8 cm size and its maximal dimension. The patient also has cardiomegaly and a bilateral pleural effusion right more than left. The proximal abdominal aorta was also measuring 3.3 cm in size. There was evidence of mild pulmonary hypertension. Otherwise, the patient is looking well. No significant complaints. Lasix was switched to oral. The patient is also on Aldactone. The patient is currently receiving metoprolol 25 mg by mouth 3 times a day. The patient is on amiodarone 200 mg by mouth twice a day. He is on high still is statins. Objective - Vital Signs Vital signs: Vital Signs Temp 97.8 F 10/24/19 08:00 Pulse 84 10/24/19 12:11 Resp 18 10/24/19 08:00 BP 137/62 10/24/19 08:00 Pulse Ox 94 L 10/24/19 08:00 Intake & Output 10/23/19 10/24/19 10/24/19 18:59 06:59 18:59 Intake Total 1100 250 240 Output Total 1185 200 Balance -85 50 240 Weight 72.1 kg Intake: IV 100 10 0.9 Normal Saline 100 10 Oral 1000 240 240 Output: Urine 1185 200 Other: Voiding Method Indwelling Catheter Toilet Toilet # Voids 1 # Bowel Movements 1 - Exam Gen. appearance, comfortable likely distress Head exam was generally normal. There was no scleral icterus or corneal arcus. Mucous membranes were moist. Neck was supple and with jugular venous distension, thyromegaly, or carotid bruits. Carotids were easily palpable bilaterally. There was no adenopathy.There is some mild JVDs noted at 30 head elevation Lungs are clear, Lungs were clear to auscultation and percussion, and with normal diaphragmatic excursion. No wheezes or rales were noted. heart sounds are regular, Positive S1-S2 and there is no S3 or any murmurs noted. No rubs Abdominal exam revealed normal bowel sounds. The abdomen was soft, non-tender, and without masses, organomegaly, or appreciable enlargement of the abdominal aorta. Examination of the extremities revealed easily palpable radial, femoral and pedal pulses. There was no cyanosis, clubbing or edema.And there is no hematoma noted in the right groin area and the cath site is dry clean and intact Examination of the skin revealed no evidence of significant rashes, suspicious appearing nevi or other concerning lesions. Neurologically awake and alert and is no focal neurological deficit - Labs CBC & Chem 7: 10/24/19 06:16 10/24/19 06:16 Labs: Abnormal Lab Results - Last 24 Hours (Table) 10/24/19 Range/Units 06:16 BUN 23 H (9-20) mg/dL Assessment and Plan Plan: 1 acute non-STEMI, results of the cardiac catheterization was noted and the patient was found to have a patent WHITE to LAD and a subtotally occluded circumflex which was probably the culprit vessel underlying this current event 2 ventricular tachycardia, nonsustained, in a setting of an acute NC with underlying ischemic cardiomyopathy 3 multivessel coronary artery disease with previous coronary artery bypass surgery ischemic cardiomyopathy with severely impaired LV function with an ejection fraction of 20-25% in addition tomoderate to severe tricuspid regurgitation and severe pulmonary hypertension and multiple segmental wall motion abnormalities 4 COPD 5 shortness of breath, multifactorial as the patient is COPD and and same time has severe cardiomyopathy with a component of mild four-vessel congestion. With IV Lasix and currently is also on Aldactone 6 hypertension 7 BPH 8 hyperlipidemia 9 hypertension 10 ascending thoracic aortic aneurysm measuring 4.8 cm at the root, and a repeat CTA of the thoracic aorta was done today showing a day ascending aortic aneurysm measuring 4.9 x 5 cm in size, slightly larger dimension compared to previously elevation of 2018. 11 bilateral renal cysts 12 BPH 13 history of nephrolithiasis/kidney stones 14 history of depression 15 history of fibromyalgia 16 bilateral pleural effusion slightly worse on the right currently on diuretics and this is most likely related to CHF. Plan cardiac medications and management per cardiology CT angios of the thoracic aorta was noted with some slight increase in the dimensions of the aortic root/ascending aorta The patient is being considered for an AICD placement regarding the above- mentioned events , Awaiting EP evaluation, currently on beta blockers with metoprolol 25 mg by mouth 3 times a day and amiodarone 200 mg by mouth twice a day. Continue monitoring the patient's cardiac rhythm Diuretics per cardiology and the patient remains on diuretics and a combination of Lasix and Aldactone Continue Aldactone We'll follow
--- NOTE | 2019-10-24 18:51 | P.CRDCN ---
History of Present Illness History of present illness: This is Dr. Perez dictating a consult on this patient The patient was interviewed and examined by me IMPRESSION / ASSESSMENT: Sustained monomorphic ventricular tachycardia Non-Q wave myocardial infarction Critical stenosis of the left circumflex but this is a very diminutive small caliber nondominant vessel and medical treatment is recommended No coronary intervention was performed Advanced coronary artery disease and calcific multivessel Patent WHITE graft to the LAD and patent radial artery graft to the PDA Long-standing ischemic cardio myopathy with a progressive decline in LV systolic function from 35% in 2014, to 30% in 2018 and now to 25% in 2019 his LV dysfunction is chronic This patient is at high risk for sudden cardiac given his ischemic stop straight and scarring as evidenced by his imaging studies as well as twelve-lead ECG He now presents with scar based monomorphic ventricular tachycardia in the setting of an acute ischemic event He is not a candidate for revascularization Recommend ICD implantation after 6 weeks He should receive a LifeVest until then. I filled up the prescription for the LifeVest and gave to the charge nurse today, Maximize beta rox therapy., Switched to metoprolol succinate 50 g twice daily PLAN: As above HPI Patient presented to the hospital with chest discomfort but his telemetry ECG showed a wide complex tachycardia at rate of 129 beats a minute. He was exp eriencing cyst symptoms for greater than 12 hours. Chest x-ray showed possible pneumonitis. Initial troponins were 11. Subsequent troponins 16 he did he was treated with amiodarone and lidocaine He went back into sustained ventricular tachycardia and looked pale and diaphoretic and was electrically cardioverted with 100 J shock Twelve-lead ECG showed wide complex tachycardia 129 beats a minute with an atypical right bundle branch block pattern with a superiorly directed rightward axis Sustained monomorphic Baseline twelve-lead ECG shows sinus rhythm with Q waves in the anterior leads and a left axis deviation and ST-T abnormalities and a QRS width of 124 ms left bundle branch block type II-D echo showed severe LV dysfunction ejection fraction 20 have 25% with inferior wall lateral wall inferoseptal wall akinesis Severe mitral regurgitation moderate to severe tricuspid regurgitation and severe pulmonary hypertension He underwent coronary angiography which revealed a 40-50% distal left main disease Heavily calcified proximal LAD 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 Subtotally occluded diagonal branch 99% stenosis of a small nondominant vessel, left circumflex 2-D occluded RCA Patent WHITE to LAD Patent radial artery bypass graft to the right PDA Collaterals from the left coronary system to the right PLV LVEDP 12-[address] of the chest showed an ascending aortic aneurysm of 5 cm which previously measured 4.8 cm Small bilateral pleural effusions Abdominal aorta of 3.3 cm and prominent pulmonary arteries consistent with pulmonary arterial hypertension Past history in 2015, his left ventricular ejection fraction was 35% In 2018, his left ventricle ejection fraction on 2-D echo was 30%, dilated LV Prior to admission he did complain of shortness of breath with average ac tivities and home and could barely make it to his mailbox Occasionally he would have orthopnea ROS: No fever chills or rigors, no cough, phlegm or expectoration, no nausea, vomiting or diarrhea, no hematuria, dysuria, no musculoskeletal complaints, no strokes or seizures, no skin lesions. EXAMINATION: He is resting comfortably in bed No JVD No lower extremity edema Soft abdomen nontender Normal heart sounds normal S1 normal S2 no murmurs no gallops no rub Breath sounds are clear no rhonchi no crackles No orthopnea this time REVIEW OF LABS, ECG & MEDICAL DATA WBC count 8.1, hemoglobin 12.6 Sodium 136 potassium 5.0 BUN 28 creatinine 0.88 NT proBNP 43,000 Negative PCR coronavirus Past Medical History Past Medical History: Coronary Artery Disease (CAD), Chest Pain / Angina, COPD, Hyperlipidemia, Hypertension, Musculoskeletal Disorder, Osteoarthritis (OA), Prostate Disorder Additional Past Medical History / Comment(s): CAD, CABG, HTN, hyperlipidemia, GERD, HH, fibromyalgia, OA, anemia, kidney stones, hypogonadism, COPD, depression. History of Any Multi-Drug Resistant Organisms: None Reported Past Surgical History: Adenoidectomy, Back Surgery, Cholecystectomy, Coronary Bypass/CABG, Heart Catheterization, Hernia Repair, Orthopedic Surgery, Tonsillectomy Additional Past Surgical History / Comment(s): CABG x3 15 years ago, tonsillectomy and adenoidectomy, rhinoplasty, ACDF 2, left bunionectomy, Lasik, lap glen, lipoma from left shoulder 2, colonoscopy 5 years ago, hernia repair. Past Anesthesia/Blood Transfusion Reactions: No Reported Reaction Past Psychological History: No Psychological Hx Reported Smoking Status: Former smoker Past Alcohol Use History: None Reported Past Drug Use History: None Reported - Past Family History Mother Family Medical History: Cancer, Coronary Artery Disease (CAD) Father Family Medical History: Cancer Brother(s) Family Medical History: Congestive Heart Failure (CHF), Coronary Artery Disease (CAD) Sister(s) Family Medical History: Congestive Heart Failure (CHF) Medications and Allergies Home Medications Medication Instructions Recorded Confirmed Type Ezetimibe [Zetia] 10 mg PO DAILY 07/04/14 10/20/19 History Tamsulosin HCl [Flomax] 0.4 mg PO DAILY 07/04/14 10/20/19 History Finasteride [Proscar] 5 mg PO DAILY #30 tab 07/23/14 10/20/19 Rx ALPRAZolam [Xanax] 0.5 mg PO TID PRN 10/20/19 10/20/19 History Albuterol Sulfate [Proair Hfa] 2 puff INHALATION RT-Q6H PRN 10/20/19 10/20/19 History Buprenorphine [Butrans 10 MCG/HOUR] 1 patch TRANSDERM Q7D 10/20/19 10/20/19 History Meloxicam 15 mg PO DAILY PRN 10/20/19 10/20/19 History Pregabalin [Lyrica] 150 mg PO BID 10/20/19 10/20/19 History cloNIDine HCL [Catapres] 0.1 mg PO DAILY 10/20/19 10/20/19 History hydrALAZINE HCL 25 mg PO TID 10/20/19 10/20/19 History Allergies Allergy/AdvReac Type Severity Reaction Status Date / Time levofloxacin [From Levaquin] AdvReac Unknown Verified 10/20/19 23:47 Physical Exam Vitals: Vital Signs Temp Pulse Pulse Pulse Resp BP Pulse Ox 10/24/19 12:11 84 10/24/19 11:56 80 10/24/19 08:00 97.8 F 84 84 18 137/62 94 L 10/24/19 07:37 72 10/24/19 07:26 72 10/24/19 04:00 98.5 F 89 17 175/80 96 10/24/19 00:00 98.1 F 71 18 176/81 92 L 10/23/19 20:09 98.5 F 73 20 175/82 92 L 10/23/19 18:22 147/65 10/23/19 16:00 98.7 F 61 22 172/77 93 L 10/23/19 15:52 98 F 76 25 H 154/96 95 Intake and Output 10/23/19 10/24/19 10/24/19 22:59 06:59 14:59 Intake Total 1020 250 240 Output Total 250 200 Balance 770 50 240 Intake: IV 20 10 0.9 Normal Saline 20 10 Oral 1000 240 240 Output: Urine 250 200 Other: Voiding Method Toilet Toilet # Voids 1 Weight 72.1 kg Results 10/24/19 06:16 10/24/19 06:16 CBC 10/24/19 Range/Units 06:16 WBC 10.6 (3.8-10.6) k/uL RBC 4.52 (4.30-5.90) m/uL Hgb 13.0 (13.0-17.5) gm/dL Hct 41.4 (39.0-53.0) % Plt Count 174 (150-450) k/uL Comprehensive Metabolic Panel 10/23/19 10/24/19 Range/Units 18:15 06:16 Sodium 137 (137-145) mmol/L Potassium 3.7 4.0 (3.5-5.1) mmol/L Chloride 105 (98-107) mmol/L Carbon Dioxide 26 (22-30) mmol/L BUN 23 H (9-20) mg/dL Creatinine 0.86 (0.66-1.25) mg/dL Glucose 96 (74-99) mg/dL Calcium 9.0 (8.4-10.2) mg/dL Current Medications Generic Name Dose Route Start Last Admin Trade Name Freq PRN Reason Stop Dose Admin Acetaminophen 650 mg 10/20/19 21:58 10/21/19 15:16 Tylenol Tab PO 650 mg Q4HR PRN Administration Fever and/or Mild Pain Albuterol/Ipratropium 3 ml 10/21/19 09:05 Duoneb 0.5 Mg-3 Mg/3 Ml Soln INHALATION RT-QID PRN Shortness Of Breath Or Wheezing Albuterol/Ipratropium 3 ml 10/21/19 12:00 10/24/19 11:56 Duoneb 0.5 Mg-3 Mg/3 Ml Soln INHALATION 3 ml RT-QID GORDY Administration Alprazolam 0.25 mg 10/21/19 08:27 10/21/19 15:16 Xanax PO 0.25 mg Q6HR PRN Administration Mild Anxiety Alprazolam 0.5 mg 10/21/19 08:27 Xanax PO Q6HR PRN Moderate Anxiety Amiodarone HCl 200 mg 10/22/19 09:00 10/24/19 08:49 Cordarone PO 200 mg BID GORDY Administration Aspirin 81 mg 10/21/19 09:00 10/24/19 08:49 Aspirin PO 81 mg DAILY GORDY Administration Atorvastatin Calcium 80 mg 10/21/19 09:00 10/24/19 08:49 Lipitor PO 80 mg DAILY GORDY Administration Clopidogrel Bisulfate 75 mg 10/22/19 09:00 10/24/19 08:49 Plavix PO 75 mg DAILY GORDY Administration Furosemide 40 mg 10/24/19 09:00 10/24/19 08:49 Lasix PO 40 mg DAILY GORDY Administration Lisinopril 10 mg 10/24/19 09:00 10/24/19 08:49 Zestril PO 10 mg BID GORDY Administration Lorazepam 0.5 mg 10/21/19 02:05 10/21/19 02:35 Ativan IV 0.5 mg Q6HR PRN Administration Anxiety Metoprolol Tartrate 25 mg 10/21/19 16:00 10/24/19 08:49 Lopressor PO 25 mg TID GORDY Administration Miscellaneous Information 1 each 10/22/19 22:31 Phosphorus Per Protocol MISCELLANE DAILY PRN Per Protocol Protocol Naloxone HCl 0.2 mg 10/20/19 21:58 Narcan IV Q2M PRN Opioid Reversal Nitroglycerin 0.4 mg 10/21/19 08:27 Nitrostat SUBLINGUAL Q5M PRN Chest Pain Pantoprazole Sodium 40 mg 10/22/19 09:00 10/24/19 08:49 Protonix IVP 40 mg DAILY GORDY Administration Spironolactone 25 mg 10/21/19 12:30 10/24/19 08:49 Aldactone PO 25 mg DAILY GORDY Administration Intake and Output 10/23/19 10/24/19 10/24/19 22:59 06:59 14:59 Intake Total 1020 250 240 Output Total 250 200 Balance 770 50 240 Intake: IV 20 10 0.9 Normal Saline 20 10 Oral 1000 240 240 Output: Urine 250 200 Other: Voiding Method Toilet Toilet # Voids 1 Weight 72.1 kg 10/24/19 06:16 10/24/19 06:16
[2019-10-25 06:34] LABS: Calcium 9.2 mg/dL (8.4-10.2); Phosphorus 3.7 mg/dL (2.5-4.5); Potassium 3.8 mmol/L (3.5-5.1)
[2019-10-25] MEDS: IPRATROPIUM-ALBUTEROL 3 ML NEB INHALATION SCH ×4 (08:00→19:54)
[2019-10-25] MEDS: SPIRONOLACTONE 25 MG TAB PO SCH ×2 (08:55→08:56)
[2019-10-25] MEDS: FUROSEMIDE 40 MG TAB PO SCH (08:55)
[2019-10-25] MEDS: PANTOPRAZOLE 40 MG/10 ML VIAL IVP SCH (08:55)
[2019-10-25] MEDS: LISINOPRIL 10 MG TAB PO SCH ×2 (08:55→21:54)
[2019-10-25] MEDS: CARVEDILOL 6.25 MG TAB PO SCH ×2 (08:55→17:20)
[2019-10-25] MEDS: ATORVASTATIN 80 MG TAB PO SCH (08:55)
[2019-10-25] MEDS: CLOPIDOGREL 75 MG TAB PO SCH (08:55)
[2019-10-25] MEDS: ASPIRIN 81 MG PO SCH (08:55)
[2019-10-25] MEDS: AMIODARONE 200 MG TAB PO SCH ×2 (08:55→21:54)
[2019-10-25] MEDS ORDERED: SPIRONOLACTONE 25 MG TAB PO SCH (09:00)
[2019-10-25] MEDS ORDERED: METOPROLOL SUCCINATE (ER) 50 MG TAB.ER.24H PO SCH (09:00)
[2019-10-25] MEDS ORDERED: POTASSIUM CHLORIDE ER 20 MEQ TAB.ER PO STA (10:59)
--- NOTE | 2019-10-25 11:10 | PN ---
PROGRESS NOTE A 74-year-old gentleman who was admitted to hospital with ventricular tachycardia, non ST-segment elevation CT. Underwent cardiac catheterization and was advised medical therapy. The patient was evaluated by EP and will have a LifeVest put on before being discharged home. He is stable clinically. Has not had any more runs of ventricular tachycardia. PHYSICAL EXAM: Afebrile. Blood pressure is elevated at 153/70, respiratory rate is 18. Chest exam reveals good air entry bilaterally. Heart exam reveals first and second heart sounds. No gallop. Exam of extremities did not reveal any edema. The patient is on aspirin, Plavix, Lipitor, Coreg 6.25 b.i.d., Zestril 10 b.i.d., and Aldactone. ASSESSMENT: 1. Ventricular tachycardia. 2. Coronary artery disease, status post coronary artery bypass grafting. 3. Ischemic cardiomyopathy. 4. Uncontrolled hypertension. PLAN: I am going to start the patient on amlodipine for better blood pressure control. Once the LifeVest is placed, he can be discharged home. MMODL / IJN: [id number] /
--- NOTE | 2019-10-25 12:53 | P.PN ---
Subjective Progress Note Date: 10/25/19 Principal diagnosis: Acute non-ST elevated myocardial infarction, ventricular tachycardia, nonsustained, ischemic cardiomyopathy Is a 74-year-old male patient who presented emergency department with a nonsustained ventricular tachycardia. The patient is known to have a previous history of coronary artery disease and he has undergone previous bypass surgery 2019 along with history of hypertension, hyperlipidemia and history of COPD, ischemic cardiomyopathy, ascending aortic aneurysm. The patient was brought in via EMS because of chest pain with nausea and emesis and some altered mentation along with some lightheadedness and dizziness and palpitation. The patient was found to have a sustained ventricular tachycardia. In the ED, his troponin was 15 and EKG was consistent with V. tach. He was started on amiodarone drip. He was started on IV heparin. He was diagnosed having a acute non-STEMI along with nonsustained V. tach. He underwent cardiac catheterization and he was found to have calcified coronary arteries with multiple vessel disease but there was no critical area requiring any attention at that point in time. He was brought into the ICU for further monitoring. The patient will need an AICD implantation. This was recommended to the patient and to his family. In view of the cardiac catheterization the patient has a patent radial graft to the ri ght PDA and patent WHITE to LAD and circumflex totally occluded small circumflex that was probably the origin of the event. After being dictated amiodarone, the patient was kept on a combination of aspirin and Plavix in addition to metoprolol 25 mg 3 times a day and high-dose statins in the form of Lipitor 80 mg by mouth daily. He was diuresed IV Lasix and the dose was reduced by cardiology. He is still on amiodarone 200 mg by mouth twice a day. He is also on Aldactone 25 mg by mouth daily. Echocardiogram was completed on 10/21/2019 and it showed ischemic cardiomyopathy with severely impaired LV with an ejection fraction of 20-25% along with that there is grade 3 diastolic dysfunction, m ultiple segmental wall motion abnormalities, RV is moderately impaired and there is evidence of severe pulmonary hypertension with a PA pressure of 74 along with moderate to severe tricuspid regurgitation. The chest x-ray done at a time of admission showed increased patchy right perihilar density and the right infrahilar area and the CAT scan of the brain showed no acute intracranial abnormalities. Clinically, the patient is looking well. He is resting comfortably in bed. He remains on Lasix 40 mg IV every 24 hours. No respiratory distress. Awaiting his evaluation by electrophysiology regarding the possibility of insertion of AICD. On today's evaluation of 10/24/2019, the patient was released from the intensive care unit and currently is on the medical floor. No signs of any respiratory distress pain no chest pain. No cardiac arrhythmias. The patient is awaiting an AICD placement after being given with by EP. The patient had a repeat CT a of the thoracic aorta which showed aneurysmal dilatation of the ascending aorta measuring 5.0 x 4.9 cm in size and this was previously measuring 4.8 cm size and its maximal dimension. The patient also has cardiomegaly and a bilateral p leural effusion right more than left. The proximal abdominal aorta was also measuring 3.3 cm in size. There was evidence of mild pulmonary hypertension. Otherwise, the patient is looking well. No significant complaints. Lasix was switched to oral. The patient is also on Aldactone. The patient is currently receiving metoprolol 25 mg by mouth 3 times a day. The patient is on amiodarone 200 mg by mouth twice a day. He is on high still is statins. On 10/25/2019 patient seen in follow-up on selective care unit, he is calm and comfortable, sitting up in the bed, on room air, his pulse ox is 96%, vital signs are stable, he is afebrile, respirations are nonlabored, does get short of breath with exertion, but no acute distress. Patient has been evaluated for placement of AICD, which is planned for 6 weeks after discharge, and [facility] chest showed ascending aortic aneurysm measuring 5 x 4.9 cm and previously measuring 4.8 cm in maximal dimension, severe cardiomegaly with coronary artery atherosclerotic changes, small amount of bilateral pleural effusions, and mild aneurysmal dilation of the proximal abdominal aorta measuring 3.3 cm. Somewhat prominent pulmonary arteries correlating for pulmonary arterial hypertension. he denies any chest pain, cardiology is on, patient continues on beta blockers in the form of metoprolol, and amiodarone. Objective - Vital Signs Vital signs: Vital Signs Temp 98.5 F 10/25/19 08:50 Pulse 90 10/25/19 10:45 Resp 16 10/25/19 10:45 BP 151/77 10/25/19 10:45 Pulse Ox 96 10/25/19 10:45 Intake & Output 10/24/19 10/25/19 10/25/19 18:59 06:59 18:59 Intake Total 240 10 Balance 240 10 Weight 70 kg Intake: IV 10 0.9 Normal Saline 10 Oral 240 Other: Voiding Method Toilet Toilet Toilet # Voids 2 0 # Bowel Movements 0 - Exam GENERAL EXAM: Alert, very pleasant, 74-year-old white male, on room air, with a pulse ox of 96% comfortable in no apparent distress. HEAD: Normocephalic/atraumatic. EYES: Normal reaction of pupils, equal size. Conjunctiva pink, sclera white. NOSE: Clear with pink turbinates. THROAT: No erythema or exudates. NECK: No masses, no JVD, no thyroid enlargement, no adenopathy. CHEST: No chest wall deformity. Symmetrical expansion. LUNGS: Equal air entry with no crackles, wheeze, rhonchi or dullness. CVS: Regular rate and rhythm, normal S1 and S2, no gallops, no murmurs, no rubs ABDOMEN: Soft, nontender. No hepatosplenomegaly, normal bowel sounds, no guarding or rigidity. EXTREMITIES: No clubbing, no edema, no cyanosis, 2+ pulses and upper and lower extremities. MUSCULOSKELETAL: Muscle strength and tone normal. SPINE: No scoliosis or deformity SKIN: No rashes CENTRAL NERVOUS SYSTEM: Alert and oriented -3. No focal deficits, tone is normal in all 4 extremities. PSYCHIATRIC: Alert and oriented -3. Appropriate affect. Intact judgment and insight. - Labs CBC & Chem 7: 10/24/19 06:16 10/25/19 05:30 Assessment and Plan Plan: Assessment: 1 acute non-STEMI, results of the cardiac catheterization was noted and the patient was found to have a patent WHITE to LAD and a subtotally occluded circumf diomedes which was probably the culprit vessel underlying this current event 2 ventricular tachycardia, nonsustained, in a setting of an acute [place] with underlying ischemic cardiomyopathy, and patient is being considered for AICD placement 3 multivessel coronary artery disease with previous coronary artery bypass surgery ischemic cardiomyopathy with severely impaired LV function with an ejection fraction of 20-25% in addition tomoderate to severe tricuspid regurgitation and severe pulmonary hypertension and multiple segmental wall motion abnormalities 4 COPD 5 shortness of breath, multifactorial as the patient is COPD and and same time has severe cardiomyopathy with a component of mild four-vessel congestion. With IV Lasix and currently is also on Aldactone 6 hypertension 7 BPH 8 hyperlipidemia 9 hypertension 10 ascending thoracic aortic aneurysm measuring 4.8 cm at the root, and a repeat CTA of the thoracic aorta was done today showing a day ascending aortic aneurysm measuring 4.9 x 5 cm in size, slightly larger dimension compared to previously elevation of 2018. 11 bilateral renal cysts 12 BPH 13 history of nephrolithiasis/kidney stones 14 history of depression 15 history of fibromyalgia 16 bilateral pleural effusion slightly worse on the right currently on diuretics and this is most likely related to CHF. Plan: Cardiology consultation was noted, patient will be going home with [facility], AICD placement in 6 weeks. CTA chest was noted. Slightly increased dimensions of ascending aortic aneurysm. Vital signs are stable, no dysrhythmia. No complaints of chest pain. Remains on diuretics in the form of Lasix and Aldactone. Cardiac medications per cardiology I performed a history & physical examination of the patient and discussed their management with my nurse practitioner, Itzel Scherer. I reviewed the nurse practitioner's note and agree with the documented findings and plan of care. Lung sounds are positive for clear breath sounds. The findings and the impres arvind was discussed with the patient. I attest to the documentation by the nurse practitioner. Time with Patient: Less than 30
[2019-10-25] MEDS: amLODIPine 10 MG TAB PO SCH (13:28)
--- NOTE | 2019-10-25 13:53 | P.GSCN ---
History of Present Illness Consult date: 10/25/19 Reason for Consult: Ascending aortic aneurysm. Requesting physician: Sanchez Chisholm History of present illness: This is a 74-year-old gentleman who is followed by Dr. Cong Stevenson on an outpatient basis. He is a past medical history significant for coronary artery disease status post CABG in 1999, hypertension, hyperlipidemia, chronic obstructive pulmonary disease, benign prostatic hypertrophy and fibromyalgia. The patient reports he has been having symptoms of progressive shortness of breath and chest pain for about the last 6 months. The chest pain was associated with nausea and episodes of vomiting. He denies any recent fevers, chills, presyncope, syncope, cough, hematemesis or hemoptysis. Subsequently, due to his above-mentioned symptoms EMS was called by his and he presented to [facility] emergency department. In the emergency department a 12-lead EKG was completed which demonstrated a wide complex tachycardia, with a right bundle hayley block heart rate 129. Due to the wide complex tachycardia a cardioversion was completed 1 with 100 J. The patient was admitted to the hospital for further evaluation and treatment. A 2-D echocardiogram was completed on 10/21/2019 which demonstrated an overall left ventricular systolic function to be severely impaired with an ejection fraction between 20 and 25%, moderate aortic valve regurgitation, severe mitral valve r egurgitation, moderate to severe tricuspid valve regurgitation and severe pulmonary hypertension. His initial laboratory results showed a WBC count 8.1, hemoglobin 12.6, platelet 180, INR 1.3, PT 12.9, BUN 28, creatinine 0.88, BNP level of 43,700, he also had positive serial troponins as high as 16.700. He did undergo a COVID 19 test which was not detected. 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 On 10/24/2019 the patient underwent a CT and she will of his chest which showed an ascending aortic aneurysm measuring 5.0 x 4.9 cm and previously measuring 4.8 cm in maximal dimension. It also demonstrated severe cardiomegaly with coronary artery atherosclerotic changes, small amount of bilateral pleural effusions, and mild aneurysmal dilatation of the proximal abdominal aorta measuring 3.3 cm. Due to the findings of the ascending aortic measuring 5.0 x 4.9 cm a consult was placed to Dr. Kannan Grayson from cardiothoracic surgery for further evaluation and treatment recommendations. Review of Systems A 14 point review of systems was completed and was negative except as mentioned in the HPI. Past Medical History Past Medical History: Coronary Artery Disease (CAD), Chest Pain / Angina, COPD, Hyperlipidemia, Hypertension, Musculoskeletal Disorder, Osteoarthritis (OA), Prostate Disorder Additional Past Medical History / Comment(s): CAD, CABG, HTN, hyperlipidemia, GERD, HH, fibromyalgia, OA, anemia, kidney stones, hypogonadism, COPD, depression. History of Any Multi-Drug Resistant Organisms: None Reported Past Surgical History: Adenoidectomy, Back Surgery, Cholecystectomy, Coronary Bypass/CABG, Heart Catheterization, Hernia Repair, Orthopedic Surgery, Tonsillectomy Additional Past Surgical History / Comment(s): CABG x3 in 1999, tonsillectomy and adenoidectomy, rhinoplasty, ACDF 2, left bunionectomy, Lasik, lap glen, lipoma from left shoulder 2, colonoscopy 5 years ago, hernia repair. Past Anesthesia/Blood Transfusion Reactions: No Reported Reaction Past Psychological History: No Psychological Hx Reported Smoking Status: Former smoker (quit in 1985) Past Alcohol Use History: None Reported Past Drug Use History: None Reported - Past Family History Mother Family Medical History: Cancer, Coronary Artery Disease (CAD) Father Family Medical History: Cancer Brother(s) Family Medical History: Congestive Heart Failure (CHF), Coronary Artery Disease (CAD) Sister(s) Family Medical History: Congestive Heart Failure (CHF) Medications and Allergies Home Medications Medication Instructions Recorded Confirmed Type Ezetimibe [Zetia] 10 mg PO DAILY 07/04/14 10/20/19 History Tamsulosin HCl [Flomax] 0.4 mg PO DAILY 07/04/14 10/20/19 History Finasteride [Proscar] 5 mg PO DAILY #30 tab 07/23/14 10/20/19 Rx ALPRAZolam [Xanax] 0.5 mg PO TID PRN 10/20/19 10/20/19 History Albuterol Sulfate [Proair Hfa] 2 puff INHALATION RT-Q6H PRN 10/20/19 10/20/19 History Buprenorphine [Butrans 10 MCG/HOUR] 1 patch TRANSDERM Q7D 10/20/19 10/20/19 History Meloxicam 15 mg PO DAILY PRN 10/20/19 10/20/19 History Pregabalin [Lyrica] 150 mg PO BID 10/20/19 10/20/19 History cloNIDine HCL [Catapres] 0.1 mg PO DAILY 10/20/19 10/20/19 History hydrALAZINE HCL 25 mg PO TID 10/20/19 10/20/19 History Allergies Allergy/AdvReac Type Severity Reaction Status Date / Time levofloxacin [From Levaquin] AdvReac Unknown Verified 10/20/19 23:47 Surgical - Exam Vital Signs Temp Pulse Resp BP Pulse Ox 98.3 F 128 H 20 169/114 98 10/20/19 21:03 10/20/19 21:03 10/20/19 21:03 10/20/19 21:03 10/20/19 21:03 This is a pleasant 74-year-old gentleman who is laying in bed on the cardiac stepdown unit. He is no acute distress, he is alert and oriented 3. Remote telemetry showing normal sinus rhythm with right bundle branch block heart rate 83. Oxygen saturations are 97% on room air. - General well developed, well nourished, no distress, no pain, chronically ill - Eyes PERRL, normal ocular movement - ENT normal pinna, normal nares, normal mucosa, no hearing loss, no congestion - Neck Neck is supple, no JVD. no masses, no bruits, trachea midline, no venous distension - Respiratory Lung sounds are essentially clear throughout, diminished to his bilateral bases. No wheezes, rhonchi or crackles. Respirations are symmetrical and nonlabored. - Cardiovascular Regular rhythm and rate. S1 and S2 present, negative for S3, gallop or murmur. No edema present. - Abdomen Abdomen soft, nontender and nondistended. Active bowel sounds present in all 4 abdominal quadrants. No guarding or rigidity. No organomegaly appreciated. - Genitourinary Deferred - Rectum Deferred - Integumentary no rash, no growths, no abnormal pigmentation - Neurologic normal coordination, normal sensation - Musculoskeletal Strength equally bilateral. - Psychiatric oriented to time, oriented to person, oriented to place, speech is normal, memory intact Results - Labs 10/24/19 06:16 10/25/19 05:30 Diabetes panel 10/25/19 Range/Units 05:30 Sodium 139 (137-145) mmol/L Potassium 3.8 (3.5-5.1) mmol/L Chloride 103 (98-107) mmol/L Carbon Dioxide 27 (22-30) mmol/L BUN 20 (9-20) mg/dL Creatinine 0.97 (0.66-1.25) mg/dL Glucose 88 (74-99) mg/dL Calcium 9.2 (8.4-10.2) mg/dL Calcium panel 10/25/19 Range/Units 05:30 Calcium 9.2 (8.4-10.2) mg/dL Phosphorus 3.7 (2.5-4.5) mg/dL Pituitary panel 10/25/19 Range/Units 05:30 Sodium 139 (137-145) mmol/L Potassium 3.8 (3.5-5.1) mmol/L Chloride 103 (98-107) mmol/L Carbon Dioxide 27 (22-30) mmol/L BUN 20 (9-20) mg/dL Creatinine 0.97 (0.66-1.25) mg/dL Glucose 88 (74-99) mg/dL Calcium 9.2 (8.4-10.2) mg/dL Adrenal panel 10/25/19 Range/Units 05:30 Sodium 139 (137-145) mmol/L Potassium 3.8 (3.5-5.1) mmol/L Chloride 103 (98-107) mmol/L Carbon Dioxide 27 (22-30) mmol/L BUN 20 (9-20) mg/dL Creatinine 0.97 (0.66-1.25) mg/dL Glucose 88 (74-99) mg/dL Calcium 9.2 (8.4-10.2) mg/dL - Imaging Additional studies: Results of the CTA chest reviewed by Dr. Kannan Grayson. 2-D echocardiogram results reviewed. Assessment and Plan Assessment: 1. Ascending aortic aneurysm measuring 5.0 x 4.[address] angiogram of his chest 2. Sustained monomorphic ventricular tachycardia 3. Non-ST elevated myocardial infarction this admission 4. Symptomatic multivessel coronary artery disease with history of coronary artery bypass grafting surgery in 1999 5. Chronic obstructive pulmonary disease 6. Dyspnea, multifactorial, patient has severe cardiomyopathy with an ejection fraction of 20-25%, admission BNP 43,700 7. Hypertension 8. Hyperlipidemia 9. Benign prostatic hypertrophy 10. Fibromyalgia 11. History of depression Plan: The patient was seen and examined his bedside on the cardiac stepdown unit. His chart and diagnostics were reviewed and discussed with Dr. Kannan Grayson in detail. Dr. Grayson reviewed the CT angiogram of his chest and 2-D echocardiogram. No surgical indication for the ascending aortic aneurysm at this time. He will need CT scan surveillance of the ascending aortic aneurysm annually. 2-D echocardiogram showed moderate aortic valve insufficiency, optimize medically with strict blood pressure management and afterload reduction. Medical management and other comorbidities per primary care service and cardiology recommendations. Thank you Dr. Chisholm for this consult and we continue to follow the patient on an as-needed basis please feel free to call Dr. Grayson for any further questions or recommendations regarding the aneurysm. Time with Patient: Greater than 30
--- NOTE | 2019-10-25 13:55 | P.PN ---
Subjective Progress Note Date: 10/25/19 74-year-old male one of Dr. Hassan patient with past medical history of CAD post CABG in 2019, history of COPD, hypertension, hyperlipidemia and arrhythmia who presented to the emergency department at [facility] on 10/20/2019 after EMS was called to the scene patient apparently has been having intermittent chest pain through the entire day with nausea and vomiting he has been having significant altered mental status with lightheadedness dizziness palpitation with chest discomfort and significant shortness of breath. Patient found to be in sustained ventricular tachycardia at the time. He made it to the emergency department his troponin was 15, EKG showed ventricular tachycardia, patient was started on amiodarone drip and heparin drip cardiology were called and patient was admitted for non-ST GA with nonsustained V. tach. Will be admitted to the ICU patient will be going for heart cath as soon as his stable. 10/21: Patient has done very well ended up going to the rn labor and delivery result with calcified coronary artery multiple vessel disease but no critical area require any attention at this point. With the ventricular tachycardia patient remain on amiodarone but he will need to have an ICD to avoid any further episodes or attack at this point. 10/22: Patient remains in intensive care unit. He denies any chest pain, shortness of breath, lightheadedness, palpitations. He states he has a cough. He is using incentive spirometry. He had a bowel movement last evening. Cardiology is consulted Dr. Beck for AICD placement. Amiodarone drip has been transitioned to oral. Patient is continued on IV Lasix 40 mg daily. Echocardiogram reveals EF of 20-25% with moderate concentric left ventricular hypertrophy, mild aortic valve sclerosis, moderate aortic regurgitation, severe mitral regurgitation, moderate to severe tricuspid regurgitation, severe pulmonary hypertension 10/23: Patient is seen today on the cardiac stepdown unit. He is waiting for evaluation by Dr. Perez for AICD. Pulse ox is 91-92% on room air. He still has a cough that's dry and nonproductive. Incentive spirometry added. Cardiology has changed Lasix to oral. Blood pressure remains elevated and lisinopril will be increased to 10 mg twice daily. Patient has been afebrile, heart rate in the 70s and 80s, blood pressure 175/80. monitoring and evaluation advisor has been a sinus rhythm. 10/24: Patient has been evaluated by Dr. Perez with recommendations for ICD implantation after 6 weeks and obtain LifeVest until then. manager product design has made arrangements for delivery of LifeVest for this afternoon. Beta rox switched to Coreg 6.25 mg twice daily. Patient denies any complaints. Nursing concern that he was quite sweaty today. He does not have a fever and denies chills. He denies having any chest pain. Patient has had 28 runs of V. tach of 3-9 beats over a 20 minute course and discharge will be held tonight and plan for discharge for tomorrow. The patient has been asymptomatic with V. tach. He has been afebrile, heart rate 90, blood pressure 151/71, pulse ox 96% on room air. Electrolytes are normal, potassium 3.8 and potassium supplement was added. A CTA of the chest was done as requested by patient's primary yoga instructor. This revealed a sending aortic aneurysm measuring 5 x 4.9 cm previously measuring 4.8 cm in maximal dimension. Severe cardiomegaly with coronary artery atherosclerotic changes. Small amount of bilateral pleural effusions. Correlate for heart failure otherwise pneumonitis. Mild aneurysmal dilatation of the proximal abdominal aorta measuring 3.3 cm. Pulmonary arteries are somewhat prominent correlate for pulmonary artery hypertension. LifeVest will be obtained this afternoon, monitor patient overnight and plan for discharge home tomorrow. Objective - Vital Signs Vital signs: Vital Signs Temp 98.5 F 10/25/19 08:50 Pulse 80 10/25/19 08:50 Resp 16 10/25/19 08:50 BP 153/71 10/25/19 08:50 Pulse Ox 97 10/25/19 08:50 Intake & Output 10/24/19 10/25/19 10/25/19 18:59 06:59 18:59 Intake Total 240 10 Balance 240 10 Weight 70 kg Intake: IV 10 0.9 Normal Saline 10 Oral 240 Other: Voiding Method Toilet Toilet # Voids 2 - Exam Review of Systems CONSTITUTIONAL: Well-developed no acute respiratory distress. Denies dizziness. Denies fever, denies chills. EYES: No icterus sclerae, no conjunctivitis. EARS, NOSE, MOUTH, THROAT, and FACE: No sore throat, lymphadenopathy, carotid bruits or deformity. RESPIRATORY: Denies shortness of breath, reports cough denies wheezes. CARDIOVASCULAR: Denies chest pain, denies angina, denies palpitation and arrhythmia, denies PND, denies lightheadedness, denies dizziness. GASTROINTESTINAL: No abdominal pain denies nausea and vomiting no diarrhea. GENITOURINARY: Negative for Hematuria or UTI, no kidney stones. INTEGUMENT/BREAST: Negative for any muscular injury with mild osteoarthritis.. HEMATOLOGIC/LYMPHATIC: Negative for bleed or purpura. MUSCULOSKELTAL: Negative for Myalgia or arthralgia. NEURLOGICAL: Alert with mild change mental status. BEHAVIORAL/PSYCH: Negative. ENDOCRINE: Negative. Physical Exam General Appearance: Alert, cooperative, no distress, appears stated age. Patient is resting in bed and appears to be comfortable. Neck HEENT: Supple, no lymphadenopathy, no thyroid enlargement, no carotid bruits. Lungs: Decreased breath some bilaterally, crackles on the right side. Chest Wall: Decrease expansion with deep inspiration no tenderness and no deformity was found on exam, no costochondral pain or discomfort. Heart: Regular rhythm and rate S1-S2 positive history positive PVCs with systolic murmur. Back: Symmetric, no curvature, ROM normal, no CVA tenderness. Abdomen: Slight abdominal discomfort without tenderness rebound or rigidity. Extremities: Extremities normal, atraumatic, no cyanosis or edema. Pulses: 2+ and symmetric. Skin: Skin color, texture, tugor normal, no rashes or lesions. Neurologic: Alert severely confuse, cranial nerves II through XII intact, no motor deficit, no abnormal balance or gait. - Labs CBC & Chem 7: 10/24/19 06:16 10/25/19 05:30 Assessment and Plan Plan: 1. Episode of ventricular tachycardia. Amiodarone drip transitioned to oral 200 mg twice daily. Cardiology consult appreciated. Consult with Dr. Perez appreciated. Plan is for AICD in 6 weeks, LifeVest will be delivered this a fternoon. 2. Acute non-ST elevated myocardial infarction status post heart catheterization with patent radial graft to the right PDA, patent WHITE to the LAD, some totally occluded small circumflex that probably was the origin of the event. Continue aspirin 81 mg daily, Lipitor 80 mg daily, Plavix 75 mg daily, Lasix 40 mg oral daily, Lopressor changed to Coreg 6.25 mg twice daily, lisinopril 10 mg twice daily. 3. Acute on chronic systolic heart failure with ischemic cardiomyopathy with EF of 20-25%. Outpatient plan for AICD. Continue oral Lasix, Aldactone 25 mg daily, lisinopril, Coreg. 4. History of coronary artery disease status post coronary artery bypass grafting. Continue as in #1. 5. Ascending aortic aneurysm, stable. 6. Hypertensive urgency (POA) with history of Hypertension. Continue lisinopril, Coreg, amiodarone. 7. Hyperlipidemia. Continue statin 8. COPD with history of tobacco use and dependence. 9. Benign prostatic hypertrophy. 10. Thrombocytopenia. Continue to monitor. 10. Generalized anxiety disorder. Continue Xanax 2.5 mg every 6 hours as nee ded. 12. Elevated liver function tests of unclear etiology. Possibly related to shock liver from V. tach and non-ST GA. Continue to monitor. 13. Chronic kidney disease stage II. 14. Valvular heart disease with moderate aortic regurgitation, severe mitral regurgitation, moderate to severe tricuspid regurgitation. 15. Severe pulmonary hypertension. 16. Pneumonia ruled out by pulmonary medicine. 17. COVID-19 infection not present. Discharge plan: home on . Impression and plan of care have been directed as dictated by the signing physician. April Taylor nurse practitioner acting as scribe for signing physician.
[2019-10-25] MEDS ORDERED: CARVEDILOL 6.25 MG TAB PO SCH (17:30)
[2019-10-26 04:06] VITALS: TEMP 98.3
[2019-10-26] MEDS: CARVEDILOL 6.25 MG TAB PO SCH (06:36)
[2019-10-26 07:58] LABS: Calcium 9.4 mg/dL (8.4-10.2); Magnesium 1.9 mg/dL (1.6-2.3); Phosphorus 4.1 mg/dL (2.5-4.5)
[2019-10-26 08:00] LABS: Potassium 5.1 mmol/L (3.5-5.1)
[2019-10-26] MEDS: IPRATROPIUM-ALBUTEROL 3 ML NEB INHALATION SCH ×2 (08:04→11:33)
[2019-10-26 08:24] VITALS: BP 119/57; PULSE 68; RESP 14
[2019-10-26] MEDS: FUROSEMIDE 40 MG TAB PO SCH (08:27)
[2019-10-26] MEDS: PANTOPRAZOLE 40 MG/10 ML VIAL IVP SCH (08:28)
[2019-10-26] MEDS: LISINOPRIL 10 MG TAB PO SCH (08:28)
[2019-10-26] MEDS: ATORVASTATIN 80 MG TAB PO SCH (08:28)
[2019-10-26] MEDS: ASPIRIN 81 MG PO SCH (08:28)
[2019-10-26] MEDS: SPIRONOLACTONE 25 MG TAB PO SCH (08:28)
[2019-10-26] MEDS: CLOPIDOGREL 75 MG TAB PO SCH (08:28)
[2019-10-26] MEDS: AMIODARONE 200 MG TAB PO SCH (08:28)
[2019-10-26] MEDS: amLODIPine 10 MG TAB PO SCH (08:28)
--- NOTE | 2019-10-26 11:26 | P.PN ---
Subjective Progress Note Date: 10/26/19 Principal diagnosis: Acute non-ST elevated myocardial infarction, ventricular tachycardia, nonsustained, ischemic cardiomyopathy Is a 74-year-old male patient who presented emergency department with a nonsustained ventricular tachycardia. The patient is known to have a previous history of coronary artery disease and he has undergone previous bypass surgery 2019 along with history of hypertension, hyperlipidemia and history of COPD, ischemic cardiomyopathy, ascending aortic aneurysm. The patient was brought in via EMS because of chest pain with nausea and emesis and some altered mentation along with some lightheadedness and dizziness and palpitation. The patient was found to have a sustained ventricular tachycardia. In the ED, his troponin was 15 and EKG was consistent with V. tach. He was started on amiodarone drip. He was started on IV heparin. He was diagnosed having a acute non-STEMI along with nonsustained V. tach. He underwent cardiac catheterization and he was found to have calcified coronary arteries with multiple vessel disease but there was no critical area requiring any attention at that point in time. He was brought into the ICU for further monitoring. The patient will need an AICD implantation. This was recommended to the patient and to his family. In view of the cardiac catheterization the patient has a patent radial graft to the ri ght PDA and patent WHITE to LAD and circumflex totally occluded small circumflex that was probably the origin of the event. After being dictated amiodarone, the patient was kept on a combination of aspirin and Plavix in addition to metoprolol 25 mg 3 times a day and high-dose statins in the form of Lipitor 80 mg by mouth daily. He was diuresed IV Lasix and the dose was reduced by cardiology. He is still on amiodarone 200 mg by mouth twice a day. He is also on Aldactone 25 mg by mouth daily. Echocardiogram was completed on 10/21/2019 and it showed ischemic cardiomyopathy with severely impaired LV with an ejection fraction of 20-25% along with that there is grade 3 diastolic dysfunction, m ultiple segmental wall motion abnormalities, RV is moderately impaired and there is evidence of severe pulmonary hypertension with a PA pressure of 74 along with moderate to severe tricuspid regurgitation. The chest x-ray done at a time of admission showed increased patchy right perihilar density and the right infrahilar area and the CAT scan of the brain showed no acute intracranial abnormalities. Clinically, the patient is looking well. He is resting comfortably in bed. He remains on Lasix 40 mg IV every 24 hours. No respiratory distress. Awaiting his evaluation by electrophysiology regarding the possibility of insertion of AICD. On today's evaluation of 10/24/2019, the patient was released from the intensive care unit and currently is on the medical floor. No signs of any respiratory distress pain no chest pain. No cardiac arrhythmias. The patient is awaiting an AICD placement after being given with by EP. The patient had a repeat CT a of the thoracic aorta which showed aneurysmal dilatation of the ascending aorta measuring 5.0 x 4.9 cm in size and this was previously measuring 4.8 cm size and its maximal dimension. The patient also has cardiomegaly and a bilateral p leural effusion right more than left. The proximal abdominal aorta was also measuring 3.3 cm in size. There was evidence of mild pulmonary hypertension. Otherwise, the patient is looking well. No significant complaints. Lasix was switched to oral. The patient is also on Aldactone. The patient is currently receiving metoprolol 25 mg by mouth 3 times a day. The patient is on amiodarone 200 mg by mouth twice a day. He is on high still is statins. On 10/25/2019 patient seen in follow-up on selective care unit, he is calm and comfortable, sitting up in the bed, on room air, his pulse ox is 96%, vital signs are stable, he is afebrile, respirations are nonlabored, does get short of breath with exertion, but no acute distress. Patient has been evaluated for placement of AICD, which is planned for 6 weeks after discharge, and patient will be going home with the [facility]. CT chest showed ascending aortic aneurysm measuring 5 x 4.9 cm and previously measuring 4.8 cm in maximal dimension, severe cardiomegaly with coronary artery atherosclerotic changes, small amount of bilateral pleural effusions, and mild aneurysmal dilation of the proximal abdominal aorta measuring 3.3 cm. Somewhat prominent pulmonary arteries correlating for pulmonary arterial hypertension. he denies any chest pain, cardiology is on, patient continues on beta blockers in the form of metoprolol, and amiodarone. On 10/26/2019 patient seen in follow-up on selective care unit, he is calm and comfortable, as he is resting in bed, in no acute distress, room air pulse ox is 94%, hemodynamically stable, no completed chest pain, no arrhythmias, he already received his Lifevest, his had no acute events overnight, he remains on oral amiodarone, Coreg, oral dose of Lasix, lisinopril, and Aldactone. He was e valuated for placement of AICD which is going to be scheduled in 6 weeks after discharge. No complaints of shortness of breath or chest pain, no specific complaints at all, no acute events overnight. Lung sounds are clear, today's labs have been reviewed, electrolytes are unremarkable, BUN is 22 creatinine is 1.05 Objective - Vital Signs Vital signs: Vital Signs Temp 98.3 F 10/26/19 04:00 Pulse 68 10/26/19 08:00 Resp 14 10/26/19 08:00 BP 119/57 10/26/19 08:00 Pulse Ox 94 L 10/26/19 08:00 Intake & Output 10/25/19 10/26/19 10/26/19 18:59 06:59 18:59 Intake Total 240 597 Output Total 0 Balance 240 597 Weight 71.4 kg Intake: Oral 240 597 Output: Urine 0 Other: Voiding Method Toilet Toilet Toilet # Voids 2 # Bowel Movements 0 - Exam GENERAL EXAM: Alert, very pleasant, 74-year-old white male, on room air, with a pulse ox of 94% comfortable in no apparent distress. HEAD: Normocephalic/atraumatic. EYES: Normal reaction of pupils, equal size. Conjunctiva pink, sclera white. NOSE: Clear with pink turbinates. THROAT: No erythema or exudates. NECK: No masses, no JVD, no thyroid enlargement, no adenopathy. CHEST: No chest wall deformity. Symmetrical expansion. LUNGS: Equal air entry with no crackles, wheeze, rhonchi or dullness. CVS: Regular rate and rhythm, normal S1 and S2, no gallops, no murmurs, no rubs ABDOMEN: Soft, nontender. No hepatosplenomegaly, normal bowel sounds, no guarding or rigidity. EXTREMITIES: No clubbing, no edema, no cyanosis, 2+ pulses and upper and lower extremities. MUSCULOSKELETAL: Muscle strength and tone normal. SPINE: No scoliosis or deformity SKIN: No rashes CENTRAL NERVOUS SYSTEM: Alert and oriented -3. No focal deficits, tone is normal in all 4 extremities. PSYCHIATRIC: Alert and oriented -3. Appropriate affect. Intact judgment and insight. - Labs CBC & Chem 7: 10/24/19 06:16 10/26/19 06:29 Labs: Abnormal Lab Results - Last 24 Hours (Table) 10/26/19 Range/Units 06:29 BUN 22 H (9-20) mg/dL Assessment and Plan Plan: Assessment: 1 acute non-STEMI, results of the cardiac catheterization was noted and the patient was found to have a patent WHITE to LAD and a subtotally occluded circumflex which was probably the culprit vessel underlying this current event 2 ventricular tachycardia, nonsustained, in a setting of an acute CA with underlying ischemic cardiomyopathy, and patient is being considered for AICD placement 3 multivessel coronary artery disease with previous coronary artery bypass surgery ischemic cardiomyopathy with severely impaired LV function with an ejection fraction of 20-25% in addition tomoderate to severe tricuspid regurgitation and severe pulmonary hypertension and multiple segmental wall motion abnormalities 4 COPD 5 shortness of breath, multifactorial as the patient is COPD and and same time has severe cardiomyopathy with a component of mild four-vessel congestion. With IV Lasix and currently is also on Aldactone 6 hypertension 7 BPH 8 hyperlipidemia 9 hypertension 10 ascending thoracic aortic aneurysm measuring 4.8 cm at the root, and a repeat CTA of the thoracic aorta was done today showing a day ascending aortic aneurysm measuring 4.9 x 5 cm in size, slightly larger dimension compared to previously elevation of 2018. 11 bilateral renal cysts 12 BPH 13 history of nephrolithiasis/kidney stones 14 history of depression 15 history of fibromyalgia 16 bilateral pleural effusion slightly worse on the right currently on diuretics and this is most likely related to CHF. Plan: Patient remains stable overnight, he received his Lifevest, no episodes of chest pain or arrhythmias, vital signs are stable, no worsening dyspnea, his medical management of CHF per cardiology and patient is on a combination of amiodarone, Lasix, Aldactone, Coreg, and lisinopril, doing well, he is anticipated to be discharged home today and he'll be scheduled for AICD placement in 6 weeks after discharge I performed a history & physical examination of the patient and discussed their management with my nurse practitioner, Itzel Scherer. I reviewed the nurse practitioner's note and agree with the documented findings and plan of care. Lung sounds are positive for clear breath sounds. The findings and the impression was discussed with the patient. I attest to the documentation by the nurse practitioner. Time with Patient: Less than 30
--- NOTE | 2019-10-26 13:23 | P.DS ---
Providers Date of admission: 10/20/19 21:58 Expected date of discharge: 10/26/19 Attending physician: Augustina Best MD Consults: 10/20/19 21:58 Consult Physician Stat Consulting Provider: Cr Dodson Consult Reason/Comments: Sustained ventricular tachycardia, ICU management Do you want consulting provider notified?: Already Contacted Consult Physician Urgent Consulting Provider: Alonso Sexton Consult Reason/Comments: Sustained ventricular tachycardia, NSTEMI Do you want consulting provider notified?: Already Contacted 10/24/19 15:38 Consult Physician Routine Consulting Provider: Kannan Grayson Consult Reason/Comments: Ascending AA and Isch Cardiomyopathy Do you want consulting provider notified?: Yes Primary care physician: Cong CampbellSonya [facility] Course: 74-year-old male one of Dr. Hassan patient with past medical history of CAD post CABG in 2019, history of COPD, hypertension, hyperlipidemia and arrhythmia who presented to the emergency department at [facility] on 10/20/2019 after EMS was called to the scene patient apparently has been having intermittent chest pain through the entire day with nausea and vomiting he has been having significant altered mental status with lightheadedness dizziness palpitation with chest discomfort and significant shortness of breath. Patient found to be in sustained ventricular tachycardia at the time. He made it to the emergency department his troponin was 15, EKG showed ventricular tachycardia, patient was started on amiodarone drip and heparin drip cardiology were called and patient was admitted for non-ST GA with nonsustained V. tach. Will be admitted to the ICU patient will be going for heart cath as soon as his stable. 10/21: Patient has done very well ended up going to the recyclable materials sorter result with calcified coronary artery multiple vessel disease but no critical area require any attention at this point. With the ventricular tachycardia patient remain on amiodarone but he will need to have an ICD to avoid any further episodes or attack at this point. 10/22: Patient remains in intensive care unit. He denies any chest pain, shortness of breath, lightheadedness, palpitations. He states he has a cough. He is using incentive spirometry. He had a bowel movement last evening. Cardiology is consulted Dr. Beck for AICD placement. Amiodarone drip has been transitioned to oral. Patient is continued on IV Lasix 40 mg daily. Echocardiogram reveals EF of 20-25% with moderate concentric left ventricular hypertrophy, mild aortic valve sclerosis, moderate aortic regurgitation, severe mitral regurgitation, moderate to severe tricuspid regurgitation, severe pulmonary hypertension 10/23: Patient is seen today on the cardiac stepdown unit. He is waiting for evaluation by Dr. Perez for AICD. Pulse ox is 91-92% on room air. He still has a cough that's dry and nonproductive. Incentive spirometry added. Cardiology has changed Lasix to oral. Blood pressure remains elevated and lisinopril will be increased to 10 mg twice daily. Patient has been afebrile, heart rate in the 70s and 80s, blood pressure 175/80. panel monitor has been a sinus rhythm. 10/24: Patient has been evaluated by Dr. Perez with recommendations for ICD implantation after 6 weeks and obtain LifeVest until then. mortuary operations manager has made arrangements for delivery of LifeVest for this afternoon. Beta rox switched to Coreg 6.25 mg twice daily. Patient denies any complaints. Nursing concern that he was quite sweaty today. He does not have a fever and denies chills. He denies having any chest pain. Patient has had 28 runs of V. tach of 3-9 beats over a 20 minute course and discharge will be held tonight and plan for discharge for tomorrow. The patient has been asymptomatic with V. tach. He has been afebrile, heart rate 90, blood pressure 151/71, pulse ox 96% on room air. Electrolytes are normal, potassium 3.8 and potassium supplement was added. A CTA of the chest was done as requested by patient's primary flattening press operator. This revealed a sending aortic aneurysm measuring 5 x 4.9 cm previously measuring 4.8 cm in maximal dimension. Severe cardiomegaly with coronary artery atherosclerotic changes. Small amount of bilateral pleural effusions. Correlate for heart failure otherwise pneumonitis. Mild aneurysmal dilatation of the proximal abdominal aorta measuring 3.3 cm. Pulmonary arteries are somewhat prominent correlate for pulmonary artery hypertension. LifeVest will be obtained this afternoon, monitor patient overnight and plan for discharge home tomorrow. 10/25: Patient has received LifeVest. He denies any new complaints. He denies chest pain, shortness of breath or palpitations. He has had continued episodes of PVCs and V. tach. He has been asymptomatic. Patient has been afebrile, heart rate 76, blood pressure 126/61, pulse ox 94-98% on room air. Repeat electrolytes within normal limits with potassium of 5.1 and magnesium 1.9. Patient will be discharged home today in stable condition. Discharge diagnoses: 1. Episodes of ventricular tachycardia. 2. Acute non-ST elevated myocardial infarction status post heart catheterization with patent radial graft to the right PDA, patent WHITE to the LAD, some totally occluded small circumflex that probably was the origin of the event. 3. Acute on chronic systolic heart failure with ischemic cardiomyopathy with EF of 20-25%. 4. History of coronary artery disease status post coronary artery bypass grafting. 5. Ascending aortic aneurysm, stable. 6. Hypertensive urgency (POA) with history of Hypertension. 7. Hyperlipidemia. 8. COPD with history of tobacco use and dependence. 9. Benign prostatic hypertrophy. 10. Thrombocytopenia. 11. Generalized anxiety disorder. 12. Elevated liver function tests of unclear etiology. Possibly related to shock liver from V. tach and non-ST GA. 13. Chronic kidney disease stage II. 14. Valvular heart disease with moderate aortic regurgitation, severe mitral regurgitation, moderate to severe tricuspid regurgitation. 15. Severe pulmonary hypertension. 16. Pneumonia ruled out by pulmonary medicine. 17. COVID-19 infection not present. Discharge plan: home. Impression and plan of care have been directed as dictated by the signing physician. April Taylor nurse practitioner acting as scribe for signing physician. Patient Condition at Discharge: Good Plan - Discharge Summary Discharge Rx Participant: No New Discharge Prescriptions: New Spironolactone [Aldactone] 50 mg PO DAILY #30 tab Aspirin 81 mg PO DAILY chew Amiodarone [Cordarone] 200 mg PO BID #60 tab Carvedilol [Coreg] 6.25 mg PO BID-W/MEALS #60 tab Furosemide [Lasix] 40 mg PO DAILY #30 tab Atorvastatin [Lipitor] 80 mg PO DAILY #30 tab Nitroglycerin Sl Tabs [Nitrostat] 0.4 mg SUBLINGUAL Q5M PRN #25 tab PRN Reason: Chest Pain amLODIPine [Norvasc] 10 mg PO DAILY #30 tab Clopidogrel [Plavix] 75 mg PO DAILY #30 tab Lisinopril [Zestril] 10 mg PO BID #60 tab Continue Tamsulosin HCl [Flomax] 0.4 mg PO DAILY Buprenorphine [Butrans 10 MCG/HOUR] 1 patch TRANSDERM Q7D Albuterol Sulfate [Proair Hfa] 2 puff INHALATION RT-Q6H PRN PRN Reason: Shortness Of Breath ALPRAZolam [Xanax] 0.5 mg PO TID PRN PRN Reason: Anxiety Discontinued Ezetimibe [Zetia] 10 mg PO DAILY Finasteride [Proscar] 5 mg PO DAILY #30 tab hydrALAZINE HCL 25 mg PO TID Pregabalin [Lyrica] 150 mg PO BID cloNIDine HCL [Catapres] 0.1 mg PO DAILY Meloxicam 15 mg PO DAILY PRN PRN Reason: Pain Discharge Medication List Tamsulosin HCl [Flomax] 0.4 mg PO DAILY 07/04/14 [History] ALPRAZolam [Xanax] 0.5 mg PO TID PRN 10/20/19 [History] Albuterol Sulfate [Proair Hfa] 2 puff INHALATION RT-Q6H PRN 10/20/19 [History] Buprenorphine [Butrans 10 MCG/HOUR] 1 patch TRANSDERM Q7D 10/20/19 [History] Amiodarone [Cordarone] 200 mg PO BID #60 tab 10/26/19 [Rx] Aspirin 81 mg PO DAILY chew 10/26/19 [Rx] Atorvastatin [Lipitor] 80 mg PO DAILY #30 tab 10/26/19 [Rx] Carvedilol [Coreg] 6.25 mg PO BID-W/MEALS #60 tab 10/26/19 [Rx] Clopidogrel [Plavix] 75 mg PO DAILY #30 tab 10/26/19 [Rx] Furosemide [Lasix] 40 mg PO DAILY #30 tab 10/26/19 [Rx] Lisinopril [Zestril] 10 mg PO BID #60 tab 10/26/19 [Rx] Nitroglycerin Sl Tabs [Nitrostat] 0.4 mg SUBLINGUAL Q5M PRN #25 tab 10/26/19 [Rx] Spironolactone [Aldactone] 50 mg PO DAILY #30 tab 10/26/19 [Rx] amLODIPine [Norvasc] 10 mg PO DAILY #30 tab 10/26/19 [Rx] Follow up Appointment(s)/Referral(s): Sanchez Chisholm MD [STAFF PHYSICIAN] - 1 Week Cong Hassan DO [Primary Care Provider] - 1 Week Discharge Disposition: HOME SELF-CARE
--- NOTE | 2019-10-26 13:52 | P.PN ---
Subjective Progress Note Date: 10/26/19 This is a 74-year-old gentleman who presented to the emergency department with sustained ventricular tachycardia. He has known history of coronary artery disease with prior bypass surgery as well as history of hypertension, hyperlipidemia, COPD, ischemic cardio myopathy, ascending aortic aneurysm. He was brought to the hospital because of symptoms of chest discomfort with associated nausea, emesis, and some altered mentation as well as dizziness and lightheadedness. He was found to be in sustained ventricular tachycardia. He was initiated on amiodarone drip. Patient also was diagnosed to have a non-ST elevation myocardial infarction. He underwent a cardiac catheterization and was found to have a patent radial graft to the right PDA, patent WHITE to the LAD and circumflex, totally occluded circumflex, that was probably the origin of the event. Medical therapy advised.. Initially the patient was brought to the ICU, he is being followed on the telemetry unit today. His blood pressure today is under much better control, 120/60. He was seen and examined this morning and states overall he feels extremely tired and just not well. Denies any chest discomfort, his breathing is stable. He does have a LifeVest in place. From cardiology's perspective, he may be able to be discharged home today. Objective - Vital Signs Vital signs: Vital Signs Temp 98.3 F 10/26/19 04:00 Pulse 68 10/26/19 08:00 Resp 14 10/26/19 08:00 BP 119/57 10/26/19 08:00 Pulse Ox 94 L 10/26/19 08:00 Intake & Output 10/25/19 10/26/19 10/26/19 18:59 06:59 18:59 Intake Total 240 597 0 Output Total 0 Balance 240 597 0 Weight 71.4 kg Intake: Oral 240 597 0 Output: Urine 0 Other: Voiding Method Toilet Toilet Toilet # Voids 2 0 # Bowel Movements 0 - Exam GENERAL EXAM: Alert, very pleasant, 74-year-old white male, on room air, with a pulse ox of 94% comfortable in no apparent distress. HEAD: Normocephalic/atraumatic. EYES: Normal reaction of pupils, equal size. Conjunctiva pink, sclera white. NOSE: Clear with pink turbinates. THROAT: No erythema or exudates. NECK: No masses, no JVD, no thyroid enlargement, no adenopathy. CHEST: No chest wall deformity. Symmetrical expansion. LUNGS: Equal air entry with no crackles, wheeze, rhonchi or dullness. CVS: Regular rate and rhythm, normal S1 and S2, no gallops, no murmurs, no rubs ABDOMEN: Soft, nontender. No hepatosplenomegaly, normal bowel sounds, no guarding or rigidity. EXTREMITIES: No clubbing, no edema, no cyanosis, 2+ pulses and upper and lower extremities. MUSCULOSKELETAL: Muscle strength and tone normal. SPINE: No scoliosis or deformity SKIN: No rashes CENTRAL NERVOUS SYSTEM: Alert and oriented -3. No focal deficits, tone is normal in all 4 extremities. PSYCHIATRIC: Alert and oriented -3. Appropriate affect. Intact judgment and insight. - Labs CBC & Chem 7: 10/24/19 06:16 10/26/19 06:29 Labs: Abnormal Lab Results - Last 24 Hours (Table) 10/26/19 Range/Units 06:29 BUN 22 H (9-20) mg/dL Assessment and Plan Plan: Assessment and plan: 1 acute non-STEMI, results of the cardiac catheterization was noted and the p atient was found to have a patent WHITE to LAD and a subtotally occluded circumflex which was probably the culprit vessel underlying this current event. Medical therapy advised 2 ventricular tachycardia, sustained, in a setting of an acute [place] with underlying ischemic cardiomyopathy, and patient is being considered for AICD placement, has LifeVest in place 3 multivessel coronary artery disease with previous coronary artery bypass surgery ischemic cardiomyopathy with severely impaired LV function with an ejection fraction of 20-25% in addition tomoderate to severe tricuspid regurgitation and severe pulmonary hypertension and multiple segmental wall motion abnormalities 4 COPD 5 shortness of breath, multifactorial as the patient is COPD and and same time has severe cardiomyopathy with a component of mild four-vessel congestion. With IV Lasix and currently is also on Aldactone 6 hypertension 7 BPH 8 hyperlipidemia 9 hypertension 10 ascending thoracic aortic aneurysm measuring 4.8 cm at the root, and a repeat CTA of the thoracic aorta was done today showing a day ascending aortic aneurysm measuring 4.9 x 5 cm in size, slightly larger dimension compared to previously elevation of 2018. 11 bilateral renal cysts 12 BPH 13 history of nephrolithiasis/kidney stones 14 history of depression 15 history of fibromyalgia 16 bilateral pleural effusion slightly worse on the right currently on diuretics and this is most likely related to CHF Plan From cardiology's perspective, patient may be discharged home with a LifeVest in place. He'll be scheduled for AICD placement in 6 weeks after discharge. DNP note has been reviewed, I agree with a documented findings and plan of care. Patient was seen and examined.
== END 2019-10-26 15:27 | disposition home health service (06) | DRG 280 ==
LOC: EC 21:00 → 2SICU 21:58 → 3SCARD 10-23 16:55
PROVIDERS: ADMIT Internal Medicine; ATTEND Internal Medicine
PROC: 4A023N7 Measurement of Cardiac Sampling and Pressure, Left Heart, Percutaneous Approach (ICD-10-PCS; principal; 2019-10-21 11:00)
PROC: B2111ZZ Fluoroscopy of Multiple Coronary Arteries using Low Osmolar Contrast (ICD-10-PCS; principal; 2019-10-21 11:00)
PROC: B2121ZZ Fluoroscopy of Single Coronary Artery Bypass Graft using Low Osmolar Contrast (ICD-10-PCS; principal; 2019-10-21 11:00)
PROC: B2181ZZ Fluoroscopy of Left Internal Mammary Bypass Graft using Low Osmolar Contrast (ICD-10-PCS; principal; 2019-10-21 11:00)
DX: I21.4 Non-ST elevation (NSTEMI) myocardial infarction (principal); I50.23 Acute on chronic systolic (congestive) heart failure; I47.2 Ventricular tachycardia; I13.0 Hypertensive heart and chronic kidney disease with heart failure and stage 1 through stage 4 chronic kidney disease, or unspecified chronic kidney disease; I16.1 Hypertensive emergency; J44.1 Chronic obstructive pulmonary disease with (acute) exacerbation; N17.9 Acute kidney failure, unspecified; I27.21 Secondary pulmonary arterial hypertension; D69.6 Thrombocytopenia, unspecified; I71.2 Thoracic aortic aneurysm, without rupture; I25.119 Atherosclerotic heart disease of native coronary artery with unspecified angina pectoris; D63.1 Anemia in chronic kidney disease; N18.2 Chronic kidney disease, stage 2 (mild); Z11.59 Encounter for screening for other viral diseases; I25.5 Ischemic cardiomyopathy; I49.3 Ventricular premature depolarization; I08.3 Combined rheumatic disorders of mitral, aortic and tricuspid valves; E78.5 Hyperlipidemia, unspecified; G89.4 Chronic pain syndrome; R73.9 Hyperglycemia, unspecified; F41.1 Generalized anxiety disorder; E29.1 Testicular hypofunction; K21.9 Gastro-esophageal reflux disease without esophagitis; K44.9 Diaphragmatic hernia without obstruction or gangrene; N40.0 Benign prostatic hyperplasia without lower urinary tract symptoms; N28.1 Cyst of kidney, acquired; M79.7 Fibromyalgia; M19.90 Unspecified osteoarthritis, unspecified site; Z79.1 Long term (current) use of non-steroidal anti-inflammatories (NSAID); Z79.899 Other long term (current) drug therapy; Z95.1 Presence of aortocoronary bypass graft; Z87.891 Personal history of nicotine dependence; Z98.1 Arthrodesis status; Z87.442 Personal history of urinary calculi; Z90.49 Acquired absence of other specified parts of digestive tract; Z98.890 Other specified postprocedural states; Z88.1 Allergy status to other antibiotic agents; Z82.49 Family history of ischemic heart disease and other diseases of the circulatory system; Z80.9 Family history of malignant neoplasm, unspecified; Z86.59 Personal history of other mental and behavioral disorders
CPT/HCPCS: 36415; 70450; 71045; 71275; 80048; 80053; 80061; 83735; 83880; 84100; 84132; 84484; 85025; 85027; 85610; 85730; 87635; 93306; 93459; 94640; 96365; 96366; 96368; 96375; 96376; 99291

== ENCOUNTER 2019-12-12 10:15 | Day surgery (SDC) | payer MEDICARE ==
[~2019-12-12 10:15] MED LIST: LACTATED RINGERS 1,000 ML IV SCH; SODIUM CHLORIDE 0.9% 1,000 ML IV SCH; ceFAZolin 1,000 MG in SODIUM CHLORIDE 0.9% IRRIGATIO 250 ML IRRIGATION ONE
[2019-12-12] MEDS ORDERED: SODIUM CHLORIDE 0.9% 1,000 ML IV ONE (10:54)
[2019-12-12 11:30] LABS: Basophils % (A) 1 %; Eosinophils # (A) 0.3 k/uL (0-0.7); Eosinophils % (A) 6 %; HCT 40.6 % (39.0-53.0); HGB 13.2 gm/dL (13.0-17.5); Lymphocytes # (A) 1.4 k/uL (1.0-4.8); Lymphocytes % (A) 25 %; MCH 29.9 pg (25.0-35.0); MCHC 32.5 g/dL (31.0-37.0); Mean Platelet Volume 8.8; Monocytes # (A) 0.5 k/uL (0-1.0); Monocytes % (A) 8 %; Neutrophils # (A) 3.4 k/uL (1.3-7.7); Neutrophils % (A) 59 %; Platelet Count 193 k/uL (150-450); RBC 4.42 m/uL (4.30-5.90); RDW 15.6 % (11.5-15.5); WBC 5.7 k/uL (3.8-10.6)
[2019-12-12] MEDS ORDERED: WATER FOR INJECTION, STERILE 10 ML VIAL IV ONE (12:18)
[2019-12-12] MEDS ORDERED: MIDAZOLAM 2 MG/2 ML VIAL ONE (12:18)
[2019-12-12] MEDS ORDERED: PROPOFOL 10 MG/ML 20 ML VIAL IV ONE (12:18)
[2019-12-12] MEDS ORDERED: ePHEDrine SULFATE/0.9% NACL/PF 50 MG/5 ML SYRINGE IV ONE (12:18)
[2019-12-12] MEDS ORDERED: fentaNYL (PF) 50 MCG/ML 2 ML AMP ONE (12:18)
[2019-12-12] MEDS ORDERED: PHENYLEPHRINE-0.9% NACL SYG 1 MG/10 ML SYRINGE ONE (12:18)
[2019-12-12] MEDS ORDERED: diphenhydrAMINE 50 MG/ML 1 ML VIAL ONE (12:18)
[2019-12-12] MEDS: IOPAMIDOL-250 50ML BTL IV ONE ×2 (12:45→14:28)
--- NOTE | 2019-12-12 12:57 | P.HPCAR ---
History of Present Illness Indication for biventricular ICD implant, secondary prevention Sustained monomorphic ventricular tachycardia requiring cardioversion Underlying ischemic cardiomyopathy with severe LV dysfunction EF 25%, chronically reduced since 2015 On guideline directed medical treatment No recent acute myocardial infarction within the last 40 days No revascularization in the last 3 months Left bundle branch block QRS width 148 ms sinus rhythm DE interval 189 ms Physical Exam Vitals: Vital Signs Temp Pulse Resp BP Pulse Ox 12/12/19 10:49 97.8 F 91 16 152/82 100 Intake and Output 12/11/19 12/12/19 12/12/19 22:59 06:59 14:59 Intake Total 100 Balance 100 Intake: IV 100 Other: Weight 73.8 kg Past Medical History Past Medical History: Coronary Artery Disease (CAD), Chest Pain / Angina, COPD, Fibromyalgia, GERD/Reflux, GI Bleed, Hyperlipidemia, Hypertension, Myocardial Infarction (AR), Musculoskeletal Disorder, Osteoarthritis (OA), Prostate Disorder, Sleep Apnea/CPAP/BIPAP Additional Past Medical History / Comment(s): Hx CABG, HH, fibromyalgia, anemia, kidney stones, hypogonadism, depression. Vtach, NSTEMI 10/20/19. Uses cpap. Has O2 @3-4 L NC, Inogen portable. Kidney stone pain occ currently; back, shoulder pain. Wearing life vest. Last Myocardial Infarction Date:: 10/20/19 History of Any Multi-Drug Resistant Organisms: None Reported Past Surgical History: Adenoidectomy, Back Surgery, Cholecystectomy, Coronary Bypass/CABG, Heart Catheterization, Hernia Repair, Orthopedic Surgery, Tonsillectomy Additional Past Surgical History / Comment(s): CABG x3 in 1999, rhinoplasty, ACDF 2, left bunionectomy, Lasik, lipoma from left shoulder 2, colonoscopy 5 years ago, hernia repair X3. Past Anesthesia/Blood Transfusion Reactions: No Reported Reaction Past Psychological History: Anxiety Smoking Status: Former smoker Past Alcohol Use History: Rare Additional Past Alcohol Use History / Comment(s): Smoked age 14, 1-2 ppd, quit 1985 Past Drug Use History: None Reported - Past Family History Mother Family Medical History: Cancer, Coronary Artery Disease (CAD) Father Family Medical History: Cancer Brother(s) Family Medical History: Congestive Heart Failure (CHF), Coronary Artery Disease (CAD) Sister(s) Family Medical History: Congestive Heart Failure (CHF) Physical Examination Vital Signs Temp Pulse Resp BP Pulse Ox 12/12/19 10:49 97.8 F 91 16 152/82 100 Intake and Output 12/11/19 12/12/19 12/12/19 22:59 06:59 14:59 Intake Total 100 Balance 100 Intake: IV 100 Other: Weight 73.8 kg Results 12/12/19 11:00 CBC 12/12/19 Range/Units 11:00 WBC 5.7 (3.8-10.6) k/uL RBC 4.42 (4.30-5.90) m/uL Hgb 13.2 (13.0-17.5) gm/dL Hct 40.6 (39.0-53.0) % Plt Count 193 (150-450) k/uL Current Medications Generic Name Dose Route Start Last Admin Trade Name Freq PRN Reason Stop Dose Admin Lactated Ringer's 1,000 mls @ 20 mls/hr 12/12/19 05:57 Lactated Ringers IV .Q24H GORDY Sodium Chloride 1,000 mls @ 50 mls/hr 12/12/19 05:57 Saline 0.9% IV .Q20H GORDY Intake and Output 12/11/19 12/12/19 12/12/19 22:59 06:59 14:59 Intake Total 100 Balance 100 Intake: IV 100 Other: Weight 73.8 kg Patient Weight 12/13/19 06:59 Weight 73.8 kg 12/12/19 11:00
[2019-12-12 13:25] LABS: Calcium 8.7 mg/dL (8.4-10.2); Potassium 4.7 mmol/L (3.5-5.1)
[2019-12-12] MEDS ORDERED: LIDOCAINE 1% INJ 10MG/ML (20 ML MDV) ONE ×2 (13:26)
[2019-12-12] MEDS ORDERED: LIDOCAINE 1% INJ 10MG/ML (20 ML MDV) SQ ONE (13:46)
[2019-12-12] MEDS ORDERED: LACTATED RINGERS 1,000 ML IV ONE (16:05)
[2019-12-12] MEDS ORDERED: ACETAMINOPHEN TAB 325 MG TAB PO PRN (16:14)
[2019-12-12] MEDS ORDERED: ACETAMINOPHEN IV (For NPO) 1,000 MG in EMPTY BAG 1 BAG IVPB ONE (16:14)
[2019-12-12] MEDS: CARVEDILOL 6.25 MG TAB PO SCH (17:45)
[2019-12-12] MEDS ORDERED: ATORVASTATIN 80 MG TAB PO SCH (21:00)
[2019-12-12] MEDS: LISINOPRIL 10 MG TAB PO SCH (21:25)
--- NOTE | 2019-12-13 00:41 | CE ---
CARDIAC ELECTROPHYSIOLOGY REPORT Trino Brandt is a 74-year-old male patient with a history of sustained monomorphic ventricular tachycardia requiring cardioversion, underlying ischemic cardiomyopathy, left bundle branch block pattern, QS width 148 milliseconds, normal [place], congestive heart failure class 2. He is brought in for a biventricular ICD implantation. Patient is brought to the EP lab in a fasting state. Written informed consent was obtained prior to the procedure. The left shoulder area was prepped and draped as per protocol and 1% lidocaine was used for local anesthesia. A 4 cm incision was made parallel to the deltopectoral groove, about 1.5 cm medial to it. The incision was carried down to the level of the pectoralis muscle. A subfascial pocket was made. Hemostasis was assured. The left axillary vein was accessed at 3 separate points under fluoroscopy and via appropriately-sized introducer sheaths 3 leads were positioned. The atrial lead was a Medtronic model #5076, 52 cm in length and serial #[id number]. P- waves of 2.2 mV, pacing threshold 0.9 V at 0.5 milliseconds, pacing impedance 643 ohms. The ICD lead was positioned in the mid RV septum. This was a Medtronic model #6935M, 62 cm in length and serial #[id number]. R-waves 7.5 mV, pacing impedance 865 ohms, pacing threshold 0.6 V at 0.5 milliseconds. Ten volt test was negative. The LV lead was finally positioned in the lateral cardiac vein. This had a tortuous route. The coronary sinus was accessed and the anterior vein was attempted and the lateral veins were attempted and His bundle pacing was attempted. With His bundle pacing, there was excellent threshold, but without narrowing and normalization of the underlying QRS. Therefore, the LV lead was placed in the lateral vein. Excellent thresholds were obtained here. Pacing impedance 474 ohms, pacing threshold 0.5 V at 0.5 milliseconds. Ten volt test was negative. All leads were secured to the underlying pectoralis fascia using 2 nonabsorbable sutures. Pocket was irrigated with antibiotic solution. Leads were connected to the generator (Medtronic model #[id number], serial #[id number]). The leads and the generator were then placed in the subfascial pocket. The wound was closed in 3 layers and dressed per protocol. RESULT: Successful biventricular ICD implantation for secondary prevention of sudden cardiac . This gentleman has had sustained monomorphic ventricular tachycardia requiring cardioversion, ischemic cardiomyopathy, old myocardial infarction, congestive heart failure class 2 and underlying left bundle branch block pattern with ejection fraction of less than 25% on medical treatment. The patient tolerated the procedure well without any acute complications. Biventricular pacing parameters were programmed. Appropriate antitachycardia pacing, cardioversion defibrillation were programmed for 2 zones of VT, 2 zone of tachy therapies. MMODMak / IJN: [id number] /
[2019-12-13 04:24] LABS: Hepatitis B Surface Antigen Non-Reactive (Non-Reactive); Hepatitis C IgG Antibody Non-Reactive (Non-Reactive)
[2019-12-13] MEDS: HYDROcodone/APAP 5-325MG 1 EACH TAB PO PRN ×2 (04:49→09:52)
--- NOTE | 2019-12-13 07:04 | XR ---
EXAMINATION TYPE: XR chest 2V DATE OF EXAM: 12/13/2019 COMPARISON: 10/20/2019 HISTORY: Shortness of breath TECHNIQUE: Frontal and lateral views of the chest are obtained. FINDINGS: Scattered senescent parenchymal changes noted. Hyperinflation compatible with COPD. No evidence for infiltrate. No evidence for atelectasis. Heart size is stable. Mediastinal structures are stable and grossly unremarkable. No evidence for hilar prominence. Degenerative changes dorsal spine. IMPRESSION: 1. No evidence for acute pulmonary disease.
[2019-12-13] MEDS: LISINOPRIL 10 MG TAB PO SCH (07:38)
[2019-12-13] MEDS: CARVEDILOL 6.25 MG TAB PO SCH (07:38)
[2019-12-13] MEDS ORDERED: EZETIMIBE 10 MG TAB PO SCH (09:00)
[2019-12-13] MEDS ORDERED: CLOPIDOGREL 75 MG TAB PO SCH (09:00)
[2019-12-13] MEDS ORDERED: FUROSEMIDE 40 MG TAB PO SCH (09:00)
[2019-12-13] MEDS ORDERED: AMIODARONE 200 MG TAB PO SCH (09:00)
[2019-12-13] MEDS ORDERED: ASPIRIN 81 MG PO SCH (09:00)
[2019-12-13] MEDS ORDERED: SPIRONOLACTONE 25 MG TAB PO SCH (09:00)
[2019-12-13 09:11] VITALS: RESP 14
[2019-12-13 11:32] VITALS: BP 129/65; PULSE 63; TEMP 97.7
[2019-12-13 11:40] VITALS: BMI 24.0
--- NOTE | 2019-12-13 12:02 | P.DS ---
Providers Attending physician: Hunter Perez Primary care physician: [facility] Course: Patient is doing well from a cardiac standpoint. 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 Chisholm as before Plan - Discharge Summary Discharge Rx Participant: No New Discharge Prescriptions: New Amiodarone [Cordarone] 200 mg PO DAILY #90 tab Carvedilol [Coreg] 6.25 mg PO BID #180 tablet Atorvastatin [Lipitor] 80 mg PO DAILY #90 tab Discontinued Amiodarone [Cordarone] 200 mg PO BID #60 tab No Action ALPRAZolam [Xanax] 0.25 mg PO TID PRN PRN Reason: Anxiety Aspirin 81 mg PO DAILY chew Furosemide [Lasix] 40 mg PO DAILY #30 tab Nitroglycerin Sl Tabs [Nitrostat] 0.4 mg SUBLINGUAL Q5M PRN #25 tab PRN Reason: Chest Pain Clopidogrel [Plavix] 75 mg PO DAILY #30 tab Lisinopril [Zestril] 10 mg PO BID #60 tab Prevagen 1 tab PO DAILY Q-Nol 1 tab PO DAILY Ezetimibe [Zetia] 10 mg PO DAILY Spironolactone [Aldactone] 25 mg PO DAILY Vit C/E/Zn/Coppr/Lutein/Zeaxan [Preservision Areds 2 Softgel] 1 tab PO DAILY Blue Emu 1 applic TOPICAL DIRECTED PRN PRN Reason: Pain Discharge Medication List ALPRAZolam [Xanax] 0.25 mg PO TID PRN 10/20/19 [History] Aspirin 81 mg PO DAILY chew 10/26/19 [Rx] Clopidogrel [Plavix] 75 mg PO DAILY #30 tab 10/26/19 [Rx] Furosemide [Lasix] 40 mg PO DAILY #30 tab 10/26/19 [Rx] Lisinopril [Zestril] 10 mg PO BID #60 tab 10/26/19 [Rx] Nitroglycerin Sl Tabs [Nitrostat] 0.4 mg SUBLINGUAL Q5M PRN #25 tab 10/26/19 [Rx] Blue Emu 1 applic TOPICAL DIRECTED PRN 12/08/19 [History] Ezetimibe [Zetia] 10 mg PO DAILY 12/08/19 [History] Prevagen 1 tab PO DAILY 12/08/19 [History] Q-Nol 1 tab PO DAILY 12/08/19 [History] Spironolactone [Aldactone] 25 mg PO DAILY 12/08/19 [History] Vit C/E/Zn/Coppr/Lutein/Zeaxan [Preservision Areds 2 Softgel] 1 tab PO DAILY 12/08/19 [History] Amiodarone [Cordarone] 200 mg PO DAILY #90 tab 12/12/19 [Rx] Atorvastatin [Lipitor] 80 mg PO DAILY #90 tab 12/12/19 [Rx] Carvedilol [Coreg] 6.25 mg PO BID #180 tablet 12/12/19 [Rx] Follow up Appointment(s)/Referral(s): Sanchez Chisholm MD [STAFF PHYSICIAN] - 1 Week (Device clinic follow-up in one week Follow Dr. Chisholm in 4 weeks) Activity/Diet/Wound Care/Special Instructions: PATIENT EDUCATION MATERIAL Instructions following a heart rhythm device implant. 1. Keep dressing DRY for 5 DAYS. You may cover the area with Saran or Cling Wrap, prior to a shower. 2. The dressing will be removed in the Device Clinic at [facility]. Absorbable sutures were used to close the wound. 3. Avoid raising the left arm above the shoulder level. 4 week restriction 4. Avoid arm movements, like backscratching, rubbing the head, or pulling on a cord. 4 weeks restriction 5. Gentle range of motion movements of the shoulder, closest to the incision should be performed to avoid a frozen shoulder. (Pendulum exercises of the shoulder) 6. The opposite arm may be used freely. 7. Avoid driving for 7 days. 8. Avoid activities such as golfing, swimming, weed whacking, lifting more than 10 pounds weight, bowling, gymnastics and weight training/lifting. (6 weeks restriction) 9. Activities such as wood chopping with an axe, pull-ups in the gymnasium, power lifting, arc-welding, being close to home induction cooktops will always be a problem. 10. Arm sling is only a reminder not to raise the arm above the head. You do not need to keep the arm completely immobilized. Your free to move the arm and use it and for normal activities. In case of any problems, please call [facility], [place], @ [phone], Attention: Device Clinic Device clinic follow-up in 5 days Follow-up with primary private investigator surveillance in 2-3 months Discharge Disposition: HOME SELF-CARE
--- NOTE | 2019-12-13 12:03 | P.PRLE ---
RE: Trino Brandt Dear Cong Trino underwent a biventricular ICD implantation successfully without any acute complications His device is functioning normally and I'm reducing the dose of amiodarone 200 mg by mouth daily After one to 2 months the dose can be reduced further to 100 mg by mouth daily and the dose of beta blockers may be maximized further as tolerated Thank you for entrusting me with the care of the patient Warm regards Sincerely Hunter Perez
== END 2019-12-13 14:40 | disposition home or self-care (01) ==
LOC: CATHEP 10:15 → 1SOBS 15:55 → CATHEP 12-13 14:40
PROVIDERS: ATTEND Internal Medicine Clinical Cardiac Electrophysiology
DX: I47.2 Ventricular tachycardia (principal); I25.5 Ischemic cardiomyopathy; I44.7 Left bundle-branch block, unspecified; I11.0 Hypertensive heart disease with heart failure; I50.22 Chronic systolic (congestive) heart failure; I77.1 Stricture of artery; I25.10 Atherosclerotic heart disease of native coronary artery without angina pectoris; J44.9 Chronic obstructive pulmonary disease, unspecified; M79.7 Fibromyalgia; K21.9 Gastro-esophageal reflux disease without esophagitis; E78.5 Hyperlipidemia, unspecified; I25.2 Old myocardial infarction; M19.90 Unspecified osteoarthritis, unspecified site; N42.9 Disorder of prostate, unspecified; G47.30 Sleep apnea, unspecified; E29.1 Testicular hypofunction; F32.9 Major depressive disorder, single episode, unspecified; F41.9 Anxiety disorder, unspecified; Z87.19 Personal history of other diseases of the digestive system; Z99.89 Dependence on other enabling machines and devices; Z95.1 Presence of aortocoronary bypass graft; Z86.2 Personal history of diseases of the blood and blood-forming organs and certain disorders involving the immune mechanism; Z87.442 Personal history of urinary calculi; Z95.811 Presence of heart assist device; Z90.89 Acquired absence of other organs; Z98.890 Other specified postprocedural states; Z90.49 Acquired absence of other specified parts of digestive tract; Z98.1 Arthrodesis status; Z87.2 Personal history of diseases of the skin and subcutaneous tissue; Z87.891 Personal history of nicotine dependence; Z79.899 Other long term (current) drug therapy; Z79.82 Long term (current) use of aspirin; Z79.02 Long term (current) use of antithrombotics/antiplatelets; Z80.9 Family history of malignant neoplasm, unspecified; Z82.49 Family history of ischemic heart disease and other diseases of the circulatory system
CPT/HCPCS: 33225; 33249; 86803; 86701; 80048; 85025; 87340; 86704; 71046; C1769 ×6; C1892; C1730; C1898; C1895; C1882; J0690 ×3; J2001; J0131; Q9966

== ENCOUNTER 2019-12-29 07:31 | Inpatient (IN) | payer MEDICARE ==
[2019-12-28 11:50] VITALS: BMI 23.9
[~2019-12-29 07:31] MED LIST changes: +ALPRAZolam 0.25 MG TAB PO PRN; +ASPIRIN 325 MG TAB PO STA; -LACTATED RINGERS 1,000 ML IV SCH; +NITROGLYCERIN SL TABS 0.4 MG TAB SUBLINGUAL PRN; -SODIUM CHLORIDE 0.9% 1,000 ML IV SCH; +SODIUM CHLORIDE 0.9% 1,000 ML in EMPTY BAG 1 BAG IV ONE; -ceFAZolin 1,000 MG in SODIUM CHLORIDE 0.9% IRRIGATIO 250 ML IRRIGATION ONE
[2019-12-29] MEDS ORDERED: ASPIRIN 81 MG ONE (07:52)
[2019-12-29] MEDS ORDERED: HEPARIN SODIUM 1,000 UN/ML (10ML VL) ONE (11:20)
[2019-12-29] MEDS ORDERED: MIDAZOLAM 2 MG/2 ML VIAL IVP ONE (11:27)
[2019-12-29] MEDS ORDERED: LIDOCAINE 1% INJ 10MG/ML (20 ML MDV) SQ ONE (11:41)
[2019-12-29] MEDS ORDERED: fentaNYL (PF) 50 MCG/ML 2 ML AMP ONE (11:42)
[2019-12-29] MEDS ORDERED: fentaNYL (PF) 50 MCG/ML 2 ML AMP IV ONE (11:43)
[2019-12-29] MEDS: HEPARIN SODIUM 1,000 UN/ML (10ML VL) IV ONE ×2 (12:00→12:12)
[2019-12-29] MEDS ORDERED: CLOPIDOGREL 75 MG TAB ONE (12:32)
[2019-12-29] MEDS ORDERED: CLOPIDOGREL 75 MG TAB PO ONE (12:34)
[2019-12-29] MEDS ORDERED: IOPAMIDOL-370 100ML BTL INJ ONE ×3 (12:39→13:42)
[2019-12-29] MEDS: NITROGLYCERIN 1000MCG/10ML SYRINGE INTRACORON ONE ×2 (12:44→13:39)
[2019-12-29] MEDS ORDERED: IOPAMIDOL-370 50ML BTL INJ ONE (13:29)
[2019-12-29] MEDS ORDERED: HYDROmorphone 1 MG/ML 1 ML SYRINGE ONE (13:38)
[2019-12-29] MEDS ORDERED: HYDROmorphone 1 MG/ML 1 ML SYRINGE IVP ONE (13:42)
[2019-12-29 14:31] LABS: Glucose,Whole Blood 113 mg/dL (75-99)
[2019-12-29] MEDS ORDERED: FUROSEMIDE 10 MG/ML 2 ML VIAL IV ONE (15:00)
[2019-12-29] MEDS: SODIUM CHLORIDE 0.9% 1,000 ML IV SCH (15:22)
[2019-12-29] MEDS: AMIODARONE 200 MG TAB PO SCH (15:25)
[2019-12-29] MEDS: HYDROmorphone 0.5 MG/0.5 ML SYRINGE IVP PRN (15:51)
[2019-12-29] MEDS: carvediloL 6.25 MG TAB PO SCH (18:37)
[2019-12-29] MEDS: ALPRAZolam 0.5 MG TAB PO PRN (20:40)
--- NOTE | 2019-12-29 20:50 | PTCA ---
PERCUTANEOUSTRANS CORORONARY ANGIOGRAPHY DATE OF SERVICE: 12/29/2019. PROCEDURE: 1. Heart pump Impella placement from right femoral arterial approach. 2. Using a universal access system from right femoral approach, percutaneous transluminal coronary angioplasty and stenting of mid left anterior descending coronary artery with a drug-eluting stent. 3. Percutaneous transluminal coronary angioplasty and stenting of major diagonal branch with a drug-eluting stent. 4. Percutaneous transluminal coronary angioplasty and stenting of a chronic total occlusion of ostium of nondominant circumflex coronary artery with a drug-eluting stent. PERFORMED BY: Dr. Mandie Chisholm. Moderate conscious sedation time was 136 minutes. Patient was administered Versed, fentanyl and Dilaudid. Oxygen saturation, hemodynamics and EKG were monitored closely. CLINICAL INFORMATION: Mr. Trino Brandt is a 74-year-old gentleman with ischemic cardiomyopathy, prior bypass surgery, who was recently hospitalized with ventricular tachycardia, now has a biventricular ICD, and his heart failure symptoms have been stabilized. He has WHITE to LAD that is patent and a free radial artery graft to the PDA branch of RCA that is functional, but the circumflex graft is occluded. He has significant disease in his mid LAD which provides a large area of myocardial circulation to a septal branch and also has a major diagonal with a 90% stenosis and ostial circumflex of 99% stenosis which appears to be a chronic lesion. He was advised multivessel PCI with Impella support since his ejection fraction is less than 30%. Risks, benefits, options and rationale were explained. PROCEDURE NOTE: Under local anesthesia and strict aseptic precautions, a 6-Prydeinig introducer was placed in the right femoral artery. Under fluoroscopic guidance, progressive dilatation of the femoral artery was done using 8-Prydeinig, 10-Prydeinig and 12-Prydeinig dilators, and eventually a 14-Prydeinig introducer was placed. Under fluoroscopic guidance, using a standard technique, a pigtail catheter was used to cross the aortic valve and a wire exchange was performed with an 0.018 Impella wire. Over this Impella wire, Impella device 2.5 was advanced and positioned. Good waveforms and good cardiac output of 2.4 L were achieved. The patient was given 5500 units of heparin. ACT was 255. Additional 1000 units of heparin was given. Then through the same sheath, using a micropuncture technique, I advanced a 7-Prydeinig introducer at the 2 o'clock position. A JL5 7-Prydeinig guide catheter was used to cannulate the left coronary artery. I used a long run-through wire and crossed the wire into the mid LAD. Mid LAD was occluded after a septal branch. Wire was advanced into the septal branch. Mid LAD had a significant lesion. I advanced a 2.25 NC Trek balloon and pre-dilated the lesion and then deployed a 2.5 caliber 12 mm Xience stent with excellent angiographic result. I then advanced the same wire into the major diagonal branch, which came up very proximally. I then used a Whisper wire with a J-tip and tried to cross the circumflex, but I had considerable difficulty in getting into the circumflex ostium. After some deliberation, I decided to just do the diagonal stenting only. The diagonal vessel was pre-dilated with a 2.25 caliber 12 mm NC Trek balloon and then a 2.25 caliber 12 mm Xience stent was deployed into the diagonal branch at its origin as it came off from the LAD. Excellent angiographic result was achieved without complication. I then devoted my attention to the circumflex vessel. Using a Super Cross catheter with a 90-degree angle and a Whisper J-tipped wire, I was able to cross the total occlusion in the circumflex. Wire was kept in the circumflex marginal. This was a short circumflex segment that had a 99% stenosis, gave off an obtuse marginal branch, and then there was a groove branch also which had an independent lesion. I could not get the wire into the groove branch because of extreme tortuosity. I decided to stent the ostium of the circumflex into the circumflex marginal and hope that the groove branch flow would be maintained. With this in mind, I went with a 1.5 caliber Trek balloon and then a 2.0 caliber balloon and eventually a 2.25 caliber 12 mm NC Trek balloon and progressively dilated the ostium of circumflex. I then deployed a 23 mm long 2.5 caliber Xience stent, and the proximal end of the stent was in the left main and the distal end of the stent in the proximal portion of the obtuse marginal. Excellent angiographic result without complication was achieved. Patient received 225 mg of Plavix. He was already on aspirin and Plavix previously. After achieving excellent angiographic result, multiple angiograms were obtained. The catheter and sheath was taken out. Prior to the placement of the 14-Prydeinig sheath, I had used two Perclose devices and prepared them both at 10 o'clock and 2 o'clock positions. Under fluoroscopic guidance I took the Impella device out through the 14-Prydeinig sheath uneventfully, and I tightened both the 2 o'clock and 6 o'clock sutures of the Perclose and achieved decent hemostasis. After some tamping, the 10 o'clock wire of the Perclose suture broke, and then I used manual pressure to contain hemostasis. The 2 o'clock Perclose sutures were pushed all the way down to the artery and the sutures were cut. Decent hemostasis was achieved. I kept the wire in place. After some deliberation, I decided to use an 8-Prydeinig Angio-Seal device and used this to complement the 2 o'clock Perclose device. I therefore deployed an 8-Prydeinig Angio-Seal device and used the 2 o'clock Perclose device. With this combination, excellent hemostasis was achieved with a good distal pulse. The results were discussed with the patient. Images were reviewed. I also called his by phone and gave her the results. He was sent to the ICU in a stable condition. Overall excellent angiographic result was achieved of the ostial circumflex, major diagonal branch and mid LAD. I expect the patient to do very well, and hopefully he will be discharged in the next 48 hours. NAVYA / JIMENEZ: [id number] /
--- NOTE | 2019-12-29 20:56 | LTR ---
December 29, 2019 To: Dr. Cong Hassan Re: Trino Brandt (43) Dear Dr. Hassan, Thank you for the opportunity to participate in the care of Mr. Trino Brandt. Please find enclosed my detailed intervention report for your records. Using an Impella device, I performed multivessel intervention. Excellent angiographic result was achieved and I expect he will be discharged in the next 48 hours. Continued medical therapy with dual antiplatelet agents is advised. He will follow with you in about a week or 10 days after discharge. Thank you for your referral, and please call for questions. With kindest regards, Sincerely, Mandie Chisholm M.D. NAVYA / JIMENEZ: [id number] /
[2019-12-29] MEDS: lisinopriL 10 MG TAB PO SCH (22:22)
[2019-12-30] MEDS: HYDROmorphone 0.5 MG/0.5 ML SYRINGE IVP PRN ×2 (03:30→15:15)
[2019-12-30 05:57] LABS: Anisocytosis Slight; Basophils # (A) 0.1 k/uL (0-0.2); Basophils % (A) 0 %; Eosinophils # (A) 0.2 k/uL (0-0.7); Eosinophils % (A) 2 %; HCT 38.3 % (39.0-53.0); HGB 12.5 gm/dL (13.0-17.5); Lymphocytes # (A) 0.9 k/uL (1.0-4.8); Lymphocytes % (A) 8 %; MCH 30.5 pg (25.0-35.0); MCHC 32.5 g/dL (31.0-37.0); MCV 93.7 fL (80.0-100.0); Mean Platelet Volume 10.7; Monocytes # (A) 0.8 k/uL (0-1.0); Monocytes % (A) 7 %; Neutrophils # (A) 9.4 k/uL (1.3-7.7); Neutrophils % (A) 81 %; Platelet Count 189 k/uL (150-450); RBC 4.09 m/uL (4.30-5.90); RDW 17.1 % (11.5-15.5); WBC 11.6 k/uL (3.8-10.6)
[2019-12-30 06:04] LABS: Calcium 8.7 mg/dL (8.4-10.2); Potassium 4.7 mmol/L (3.5-5.1)
[2019-12-30] MEDS: carvediloL 6.25 MG TAB PO SCH ×2 (07:06→17:41)
[2019-12-30] MEDS: SODIUM CHLORIDE 0.9% 1,000 ML IV SCH ×2 (07:07→10:07)
[2019-12-30] MEDS: ASPIRIN 81 MG PO SCH (08:21)
[2019-12-30] MEDS: FUROSEMIDE 40 MG TAB PO SCH (08:21)
[2019-12-30] MEDS: CLOPIDOGREL 75 MG TAB PO SCH (08:21)
[2019-12-30] MEDS: SPIRONOLACTONE 25 MG TAB PO SCH (08:21)
[2019-12-30] MEDS: ATORVASTATIN 80 MG TAB PO SCH (08:21)
[2019-12-30] MEDS: AMIODARONE 200 MG TAB PO SCH (08:22)
[2019-12-30] MEDS: lisinopriL 10 MG TAB PO SCH ×2 (10:03→21:00)
--- NOTE | 2019-12-30 15:33 | PN ---
PROGRESS NOTE Mr. Brandt had a multivessel PCI from right femoral approach with Impella placement. His right groin is clean and dry. Vitals are stable. He had a comfortable night. No chest discomfort. Vital signs stable. S1-S2 heard normally. Short systolic murmur noted. Lungs are clear. Abdomen land lower extremity exam unchanged. He had a stenting of a major diagonal branch, mid LAD and also underwent a total occlusion of circumflex intervention with good result. His hemoglobin is stable. Creatinine is slightly up. I will continue hydration. Check a CBC, BMP tomorrow, move him to telemetry, possible discharge home. Discussed my thoughts in detail with the patient. MMODL / IJN: [id number] /
[2019-12-30] MEDS ORDERED: HYDROmorphone 0.5 MG/0.5 ML SYRINGE IVP PRN (15:58)
[2019-12-30] MEDS: ALPRAZolam 0.5 MG TAB PO PRN (20:42)
[2019-12-31 04:19] VITALS: PULSE 65
[2019-12-31] MEDS: carvediloL 6.25 MG TAB PO SCH (06:34)
[2019-12-31] MEDS: SODIUM CHLORIDE 0.9% 1,000 ML IV SCH (06:35)
[2019-12-31] MEDS: AMIODARONE 200 MG TAB PO SCH (08:34)
[2019-12-31] MEDS: FUROSEMIDE 40 MG TAB PO SCH (08:34)
[2019-12-31] MEDS: ATORVASTATIN 80 MG TAB PO SCH (08:34)
[2019-12-31] MEDS: CLOPIDOGREL 75 MG TAB PO SCH (08:34)
[2019-12-31] MEDS: lisinopriL 10 MG TAB PO SCH (08:34)
[2019-12-31] MEDS: SPIRONOLACTONE 25 MG TAB PO SCH (08:34)
[2019-12-31] MEDS: ASPIRIN 81 MG PO SCH (08:34)
[2019-12-31 08:48] LABS: Anisocytosis Slight; Basophils % (A) 0 %; Eosinophils # (A) 0.2 k/uL (0-0.7); Eosinophils % (A) 3 %; HCT 33.5 % (39.0-53.0); HGB 10.1 gm/dL (13.0-17.5); Hypochromasia Slight; Lymphocytes # (A) 0.8 k/uL (1.0-4.8); Lymphocytes % (A) 12 %; MCH 28.4 pg (25.0-35.0); MCHC 30.1 g/dL (31.0-37.0); MCV 94.2 fL (80.0-100.0); Mean Platelet Volume 9.9; Monocytes # (A) 0.4 k/uL (0-1.0); Monocytes % (A) 6 %; Neutrophils # (A) 5.3 k/uL (1.3-7.7); Neutrophils % (A) 78 %; Platelet Count 159 k/uL (150-450); RBC 3.55 m/uL (4.30-5.90); RDW 16.8 % (11.5-15.5); WBC 6.8 k/uL (3.8-10.6)
[2019-12-31 08:58] LABS: Calcium 8.1 mg/dL (8.4-10.2); Potassium 4.3 mmol/L (3.5-5.1)
[2019-12-31 11:49] VITALS: BP 100/55; RESP 18; TEMP 98.2
--- NOTE | 2019-12-31 12:44 | DS ---
DISCHARGE SUMMARY DATE OF ADMISSION: 12/29/2019 DATE OF DISCHARGE: 12/31/2019 DIAGNOSIS: 1. Ischemic cardiomyopathy and unstable angina. 2. History of ascending aortic dilatation. 3. Hypertension. 4. Hyperlipidemia. 5. CAD with prior bypass surgery. PROCEDURES PERFORMED: The patient had multivessel PCI with Impella support performed on 12/29/19 uneventfully. I performed stenting of a totally occluded circumflex, major diagonal branch and mid LAD before the total occlusion which was providing a large septal. HOSPITAL COURSE: This gentleman's postprocedure course was uneventful. He is doing well today, ambulating in the hallways. His right groin is clean and dry. Procedure was performed by single access. I explained to him the importance of dual antiplatelet therapy. PHYSICAL EXAMINATION: Vitals are stable. No JVD. S1, S2 heard normally. Short systolic murmur noted. Lungs are clear. Abdomen and lower extremity exam unchanged. PLAN: Plan is to discharge him today and I will see him in the office within a week. His discharge instructions regarding activity, medication and diet was given. MMODL / IJN: [id number] /
--- NOTE | 2020-01-02 10:02 | CDI ---
Documentation Clarification Form Date: 01/02/2020 09:50:41 AM From: Karoline Saldana Phone: If you have a question about this query, please contact Kandice Stern System Support Developer at [phone] between 8am and 5pm. Admit Date: 12/29/2019 07:31:00 AM Patient Name: Trino Brnadt Visit Number: [id number] Discharge Date: 12/31/2019 12:32:00 PM ATTENTION: The Clinical Documentation Specialists (CDI) and [facility] Coding Staff appreciate your assistance in clarifying documentation. Please respond to the clarification below the line at the bottom and electronically sign. The CDI & [facility] [facility] [employer] Coding staff will review the response and follow-up if needed. Please note: Queries are made part of the Legal Health Record. If you have any questions, please contact the author of this message via ITS. Dr. Sanchez Chisholm CHF is documented in the procedure notes as heart failure symptoms have stablized. EF less than 30%. Patient has had ICD placement. Patient on home Furosemide. Please clairfy if the patient has CHF and if so acuity and type of CHF. History/Risk Factors: CAD with ischemic cardiomyopathy and UA with EF less than 30% Clinical Indicators: Systolic murmur noted VS/Pulse OX: 98.2 F, 75 bpm, 16 141/86, 98% RA BNP: no results for this admit Echocardiogram Results: EF less than 30 % Chest X Ray: no CXR Treatment: PTCA Impella, previous ICD In your professional opinion, can you please clarify the acuity and type of CHF if known? Systolic Heart Failure: Acute Chronic Acute on Chronic Diastolic Heart Failure: Acute Chronic Acute on Chronic Systolic & Diastolic Heart Failure: Acute Chronic Acute on Chronic Heart Failure Unable to Determine Other, please specify Chronic Systolic HF MTDD
== END 2019-12-31 12:32 | disposition home or self-care (01) | DRG 215 ==
LOC: 2ORMAIN 07:31 → 2SICU 13:55 → 3SCARD 12-30 13:19
PROVIDERS: ADMIT Internal Medicine Interventional Cardiology; ATTEND Internal Medicine Interventional Cardiology
PROC: 02HA3RJ Insertion of Short-term External Heart Assist System into Heart, Intraoperative, Percutaneous Approach (ICD-10-PCS; principal; 2019-12-29 10:30)
PROC: 5A0221D Assistance with Cardiac Output using Impeller Pump, Continuous (ICD-10-PCS; 2019-12-29 10:30)
PROC: 027236Z Dilation of Coronary Artery, Three Arteries with Three Drug-eluting Intraluminal Devices, Percutaneous Approach (ICD-10-PCS; 2019-12-29 10:30)
DX: I25.110 Atherosclerotic heart disease of native coronary artery with unstable angina pectoris (principal); I50.20 Unspecified systolic (congestive) heart failure; I25.82 Chronic total occlusion of coronary artery; E78.5 Hyperlipidemia, unspecified; I25.5 Ischemic cardiomyopathy; Z95.1 Presence of aortocoronary bypass graft; Z95.810 Presence of automatic (implantable) cardiac defibrillator; I11.0 Hypertensive heart disease with heart failure; Z88.1 Allergy status to other antibiotic agents; Z79.02 Long term (current) use of antithrombotics/antiplatelets; I71.4 Abdominal aortic aneurysm, without rupture; G47.33 Obstructive sleep apnea (adult) (pediatric); Z79.899 Other long term (current) drug therapy; F17.210 Nicotine dependence, cigarettes, uncomplicated; M54.12 Radiculopathy, cervical region; I08.3 Combined rheumatic disorders of mitral, aortic and tricuspid valves; Z88.8 Allergy status to other drugs, medicaments and biological substances; Z79.82 Long term (current) use of aspirin
CPT/HCPCS: 80048; 85025

== ENCOUNTER → 2020-01-22 | Outpatient (CLI) | payer MEDICARE ==
--- NOTE | 2020-01-23 12:07 | CT ---
EXAMINATION TYPE: CT abdomen pelvis wo con DATE OF EXAM: 01/22/2020 COMPARISON: 03/16/2018 INDICATION: Bilateral flank pain DLP: 306.8 mGycm, Automated exposure control for dose reduction was used. CONTRAST: 0 mL of Isovue 300. Study performed without Oral Contrast TECHNIQUE: Axial images were obtained from above the diaphragm to the pubic rami in the axial plane a t 5 mm thick sections. Reconstructed images are reviewed on the computer in the coronal plane. FINDINGS: Limited CT sections are obtained the lung bases. There is a 0.2 cm density at the left lung base. Se andrés 4 image 17. There is a peripheral posterior lateral right lung base nodule measuring 0.3 cm. Ser ies 4 image 5.. There may be some atelectatic changes or scarring above the left diaphragm. CT ABDOMEN: Liver: There is prominence of the extrahepatic biliary ducts. The common bile duct is prominent measu ring 0.7 cm. This was present 03/16/2018 measuring 1.4 cm. Spleen: Normal Pancreas: Atrophic. The common bile duct the pancreas remains prominent. This appears unchanged from comparison. Adrenal glands: The adrenal glands are normal. Gallbladder: Surgically absent Kidneys: No masses are evident. No hydronephrosis is present. There is a 5.2 cm cyst measuring 10 H ounsfield units superior right kidney. There is a 3.7 cm inferior medial left renal cyst measuring 14 Hounsfield units. A 1.3 cm cyst at the inferior pole right kidney measuring 3 Hounsfield units. No r enal stones are identified. Aorta: Vascular calcification is within the aorta. Inferior vena cava: Normal. CT PELVIS: Loops of bowel within the abdomen and pelvis are normal. The study is without oral contrast limit ing bowel evaluation. Small amount of contrast type material may be within the colon within fecal iliana ris. Appendix: Not identified. No suspicious tubular structures are inflammatory changes are evident. Urinary bladder: Unremarkable. Genitourinary structures: Prostate is slightly enlarged contains calcification. Osseous structures: No suspicious lytic or sclerotic lesions. Degenerative disc changes and facet eliceo nges are within the lower lumbar spine. IMPRESSIONS: 1. Bilateral renal cysts. 2. Prominence of the extrahepatic biliary system slightly increased from 2018 comparison.
== END | disposition home or self-care (01) ==
LOC: RADCTMAIN 15:27
PROVIDERS: ATTEND Urology
DX: N28.1 Cyst of kidney, acquired (principal); R93.2 Abnormal findings on diagnostic imaging of liver and biliary tract
CPT/HCPCS: 74176

== ENCOUNTER 2020-02-20 06:07 | Day surgery (SDC) | payer MEDICARE ==
[2020-02-16 08:51] VITALS: BMI 23.6
[~2020-02-20 06:07] MED LIST changes: -ALPRAZolam 0.25 MG TAB PO PRN; -ASPIRIN 325 MG TAB PO STA; -NITROGLYCERIN SL TABS 0.4 MG TAB SUBLINGUAL PRN; +SODIUM CHLORIDE 0.9% 1,000 ML IV SCH; -SODIUM CHLORIDE 0.9% 1,000 ML in EMPTY BAG 1 BAG IV ONE
[2020-02-20 06:28] VITALS: RESP 16; TEMP 97.7
[2020-02-20 06:57] LABS: Calcium 9.3 mg/dL (8.4-10.2); Potassium 5.2 mmol/L (3.5-5.1)
[2020-02-20] MEDS ORDERED: PROPOFOL 10 MG/ML 50 ML VIAL IV ONE (07:13)
[2020-02-20] MEDS ORDERED: PHENYLEPHRINE-0.9% NACL SYG 1 MG/10 ML SYRINGE ONE (07:13)
[2020-02-20] MEDS ORDERED: MIDAZOLAM 2 MG/2 ML VIAL ONE (07:13)
--- NOTE | 2020-02-20 09:29 | P.PCN ---
Preoperative Diagnosis: Diagnosis Congestive heart failure Status post recent biventricular ICD implantation for cardio myopathy in heart failure Improvement in heart failure status the patient states he is less short of breath now Admitted for defibrillator testing and anesthesia P waves 4.8 mV, R waves 5.1 mV Atrial pacing impedance 456 ohms, RV pacing impedance 570 ohms, LV pacing impedance 399 ohms RV defibrillation 71 ohms Atrial pacing threshold 0.5 V at 0.4 ms RV pacing threshold 0.5 V at 0.4 ms LV pacing threshold 0.75 V at 0.4 ms Under anesthesia defibrillation level testing performed in regular polarity Potential shock followed by a 20 J shock was unsuccessful Patient to be defibrillated externally, successfully Excellent sensing of ventricular fibrillation After waiting for about 5-6 minutes the polarity was reversed and VF was induced once again occasional dropouts 20 J shock was unsuccessful 30 J shock was successfully Charge time 5.9 seconds Shocking impedance 70 ohms Device was reprogrammed LV offset -20 Reverse polarity programmed First cardioversion 30 J First defibrillation maximum output Plan Repeat defibrillation level testing within 6 months
[2020-02-20 16:09] VITALS: BP 129/60; PULSE 66
== END 2020-02-20 09:25 | disposition home or self-care (01) ==
LOC: CATHEP 06:07
PROVIDERS: ATTEND Internal Medicine Clinical Cardiac Electrophysiology
DX: I11.0 Hypertensive heart disease with heart failure (principal); I50.9 Heart failure, unspecified; I25.5 Ischemic cardiomyopathy; G62.9 Polyneuropathy, unspecified; E78.5 Hyperlipidemia, unspecified; G47.33 Obstructive sleep apnea (adult) (pediatric); I71.2 Thoracic aortic aneurysm, without rupture; E78.00 Pure hypercholesterolemia, unspecified; I25.10 Atherosclerotic heart disease of native coronary artery without angina pectoris; N28.9 Disorder of kidney and ureter, unspecified; K21.9 Gastro-esophageal reflux disease without esophagitis; Z95.1 Presence of aortocoronary bypass graft; Z72.0 Tobacco use; Z95.810 Presence of automatic (implantable) cardiac defibrillator; Z95.5 Presence of coronary angioplasty implant and graft; Z79.82 Long term (current) use of aspirin; Z79.899 Other long term (current) drug therapy; Z79.02 Long term (current) use of antithrombotics/antiplatelets; Z79.891 Long term (current) use of opiate analgesic; Z88.1 Allergy status to other antibiotic agents; Z88.8 Allergy status to other drugs, medicaments and biological substances; Z99.89 Dependence on other enabling machines and devices; Z98.890 Other specified postprocedural states; Z87.39 Personal history of other diseases of the musculoskeletal system and connective tissue
CPT/HCPCS: 93642; 80048; J2250; J2370; J2704

== ENCOUNTER 2021-08-10 20:11 | Inpatient (IN) | payer MEDICARE ==
[2021-08-10] MEDS ORDERED: ONDANSETRON 4 MG/2 ML VIAL IVP STA (22:18)
[2021-08-10] MEDS ORDERED: diphenhydrAMINE 50 MG/ML 1 ML VIAL IVP STA (22:18)
[2021-08-10] MEDS ORDERED: MORPHINE SULFATE 4 MG/ML SYRINGE IV STA (22:18)
[2021-08-10] MEDS ORDERED: ASPIRIN 81 MG PO STA (22:18)
[2021-08-10] MEDS ORDERED: SODIUM CHLORIDE 0.9% 1,000 ML IV STA (22:18)
[2021-08-10] MEDS ORDERED: FAMOTIDINE 20 MG/2 ML VIAL IV STA (22:19)
[2021-08-10 22:41] LABS: Basophils % (A) 0 %; Eosinophils % (A) 0 %; HCT 38.9 % (39.0-53.0); HGB 12.5 gm/dL (13.0-17.5); Lymphocytes # (A) 1.3 k/uL (1.0-4.8); Lymphocytes % (A) 15 %; MCH 31.9 pg (25.0-35.0); MCHC 32.3 g/dL (31.0-37.0); MCV 98.8 fL (80.0-100.0); Mean Platelet Volume 10.6; Monocytes # (A) 0.6 k/uL (0-1.0); Monocytes % (A) 7 %; Neutrophils # (A) 6.6 k/uL (1.3-7.7); Neutrophils % (A) 76 %; Platelet Count 178 k/uL (150-450); RBC 3.94 m/uL (4.30-5.90); RDW 13.4 % (11.5-15.5); WBC 8.6 k/uL (3.8-10.6)
[2021-08-10 22:52] LABS: Albumin 3.7 g/dL (3.5-5.0); Calcium 9.2 mg/dL (8.4-10.2); Magnesium 2.1 mg/dL (1.6-2.3); Potassium 4.3 mmol/L (3.5-5.1); Total Bilirubin 0.9 mg/dL (0.2-1.3); Total Protein 6.3 g/dL (6.3-8.2)
[2021-08-10 23:23] LABS: Partial Thromboplastin Time 21.1 sec (22.0-30.0); Prothrombin Time 10.6 sec (9.0-12.0)
[2021-08-10] MEDS ORDERED: HEPARIN SODIUM 1,000 UN/ML (10ML VL) IV PRN (23:27)
[2021-08-10] MEDS ORDERED: HEPARIN SODIUM 1,000 UN/ML (10ML VL) IV ONE (23:27)
[2021-08-10] MEDS ORDERED: NITROGLYCERIN SL TABS 0.4 MG TAB SUBLINGUAL STA (23:27)
[2021-08-10] MEDS ORDERED: HEPARIN SOD,PORK IN 0.45% NACL 25,000 UNIT in 0.45% NACL 1 250ML.BAG IV SCH (23:30)
--- NOTE | 2021-08-10 23:43 | ED ---
General Adult HPI - General Chief complaint: Back Pain/Injury Stated complaint: Nausea, Dehydration Time Seen by Provider: 08/10/21 21:23 Source: patient, RN notes reviewed, old records reviewed Mode of arrival: EMS - History of Present Illness Initial comments: Patient is a 76-year-old male with past medical history remarkable for AICD placement, CAD, chest pain, hypertension, MIs, chronic pain, multiple kidney stones who presents emergency Department with primary complaint of left-sided abdominal pain. Patient also states that he has been having chest pain over the last 1-2 days. Seems to be worse with the abdominal pain on the left flank. Describes the chest pain as achy across bilateral chest. Denies any shortness of breath. Denies any radiation. Patient describes abdominal pain as a sharp sensation over the left flank. With radiation towards the groin. States it also radiates somewhat towards his left CVA. It is typical for his heart history of kidney stones. Denies any dysuria, hematuria. Denies any diarrhea but does endorse nausea. Denies any episodes of emesis. Has no other acute complaints at this time. Presents primarily over concern for the abdominal pain. - Related Data Home Medications Medication Instructions Recorded Confirmed ALPRAZolam [Xanax] 0.25 mg PO TID PRN 10/20/19 08/10/21 Prevagen 1 tab PO DAILY 12/08/19 08/10/21 Spironolactone [Aldactone] 25 mg PO DAILY 12/08/19 08/10/21 Vit C/E/Zn/Coppr/Lutein/Zeaxan 1 tab PO DAILY 12/08/19 08/10/21 [Preservision Areds 2 Softgel] lisinopriL 10 mg PO BID 12/28/19 08/10/21 Tamsulosin [Flomax] 0.4 mg PO HS 02/16/20 08/10/21 Acetaminophen [Tylenol 8 Hour] 650 mg PO Q8H PRN 08/10/21 08/10/21 Atorvastatin [Lipitor] 80 mg PO HS 08/10/21 08/10/21 DULoxetine HCL [Cymbalta] 60 mg PO DAILY 08/10/21 08/10/21 L.acidoph,Paracasei, B.lactis 1 cap PO DAILY PRN 08/10/21 08/10/21 [Probiotic] Morphine Sulfate ER [Ms Contin] 15 mg PO HS 08/10/21 08/10/21 Potassium Citrate [Urocit-K] 10 meq PO BID 08/10/21 08/10/21 Ubidecarenone [Co Q-10] 100 mg PO DAILY 08/10/21 08/10/21 Z Quil 2 tab PO HS 08/10/21 08/10/21 oxyCODONE-APAP 10-325MG [Percocet 1 tab PO Q6H PRN 08/10/21 08/10/21 10-325 mg] Previous Rx's Medication Instructions Recorded Aspirin 81 mg PO DAILY chew 10/26/19 Clopidogrel [Plavix] 75 mg PO DAILY #30 tab 10/26/19 Furosemide [Lasix] 40 mg PO DAILY #30 tab 10/26/19 Nitroglycerin Sl Tabs [Nitrostat] 0.4 mg SUBLINGUAL Q5M PRN #25 tab 10/26/19 carvediloL [Coreg] 6.25 mg PO BID #180 tablet 12/12/19 Allergies Allergy/AdvReac Type Severity Reaction Status Date / Time Iodinated Contrast Media AdvReac Unknown Verified 08/11/21 00:48 Review of Systems ROS Statement: Those systems with pertinent positive or pertinent negative responses have been documented in the HPI. Review of Systems: CONST: Denies fever EYES: Denies blurry vision ENT: Denies nasal congestion C/V: Endorses chest pain RESP: Denies shortness of breath GI: Endorses abdominal pain : Denies dysuria SKIN: Denies rash. MSK: Denies joint pain. NEURO: Denies headache ROS Other: All systems not noted in ROS Statement are negative. Past Medical History Past Medical History: Coronary Artery Disease (CAD), Chest Pain / Angina, COPD, Hyperlipidemia, Hypertension, Myocardial Infarction ([place]), Musculoskeletal Disorder, Osteoarthritis (OA), Prostate Disorder, Sleep Apnea/CPAP/BIPAP Additional Past Medical History / Comment(s): states incision from AICD healing, Hx CABG, HH, fibromyalgia, anemia, hypogonadism, Vtach, NSTEMI 10/20/19. Uses cpap. Has O2 @3-4 L NC, prn, Inogen portable. Kidney stone pain occ currently; left flank pain, chronic toni shoulder pain, states has numbness rt arm Last Myocardial Infarction Date:: 10/20/19 History of Any Multi-Drug Resistant Organisms: None Reported Past Surgical History: Adenoidectomy, AICD, Back Surgery, Cholecystectomy, Coronary Bypass/CABG, Heart Catheterization, Hernia Repair, Orthopedic Surgery, Tonsillectomy Additional Past Surgical History / Comment(s): CABG x3 in 1999, rhinoplasty, ACDF 2, left bunionectomy, Lasik, lipoma from left shoulder 2, colonoscopy 5 years ago, hernia repair. Past Anesthesia/Blood Transfusion Reactions: No Reported Reaction Type of Cardiac Device: AICD Device Placement Date:: 12/11/29 Past Psychological History: No Psychological Hx Reported Smoking Status: Former smoker - Past Family History Mother Family Medical History: Cancer, Coronary Artery Disease (CAD) Father Family Medical History: Cancer Brother(s) Family Medical History: Congestive Heart Failure (CHF), Coronary Artery Disease (CAD) Sister(s) Family Medical History: Congestive Heart Failure (CHF) General Exam - General Exam Comments Initial Comments: General: Appears in mild distress secondary to left flank pain. HEAD: Normal with no signs of head trauma. EYES: PERRLA, EOMI, conjunctiva normal, no discharge. ENT: Hearing grossly intact, normal oropharynx. RESPIRATORY: Clear breath sounds bilaterally. No wheezes, rales, or rhonchi. C/V: Regular rate and rhythm. S1 and S2 auscultated, no edema, peripheral pulses 2+ and intact throughout. Chest pain does appear to be mildly reproducible on palpation. ABD: Abd is soft, nontender, nondistended EXT: Normal range of motion, no obvious deformity SKIN: No rashes or lesions observed on exposed skin. NEURO: Alert and oriented 4. Course Vital Signs 08/10/21 08/10/21 08/10/21 20:16 21:27 22:21 Temperature 98.5 F Pulse Rate 84 76 84 Respiratory 18 18 18 Rate Blood Pressure 157/78 157/88 149/74 O2 Sat by Pulse 99 97 98 Oximetry Medical Decision Making - Medical Decision Making Based on the patient's presentation and physical exam, we will obtain a cardiac workup as well as abdominal workup. We will initially start with x-rays of the abdomen, chest as well as an ultrasound of the kidneys and bladder. He was in agreement this plan. EKG and cardiac labs also be obtained. Patient will be administered an aspirin as well as symptomatic treatment with a 1 L fluid bolus, as well as IV Benadryl, Pepcid, morphine, Zofran. Patient's EKG shows no signs of acute ischemia. Laboratory studies are remarkable for an elevated creatinine with a history of CK D. Creatinine is improved at this time to 1.7. Must recent visit was 2.0. Troponin is elevated to 4.0. On reevaluation, chest pain is down from an 8 out of 10 to an approximate 1-2 out of 10 per patient. We will attempt a single tablet nitroglycerin to see denies any effect on his chest pain. He was in agreement this plan. He'll be started on a heparin drip over concern for ACS and a NSTEMI. Patient's chest pain was unchanged by nitroglycerin tablet. Morphine seems to help the best. He'll be continued to be administered morphine as needed. He already received aspirin. I contacted and consulted cardiology, Dr. Chisholm who w as in agreement with this plan. Urinalysis remains pending at this time. Imaging including chest x-ray, KUB revealed no acute process. Renal ultrasound revealed bilateral renal cysts with no hydronephrosis. Patient's abdominal pain is most improved at this time, however I did recommend a CT abdomen and pelvis to further evaluate. He was in agreement this plan. Workup is unremarkable up until this point other than the cardiac results. Patient will be pretreated for his CT abdomen and pelvis due to contrast ALLERGY. 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 No acute injury to the aorta. This a dilated biliary tree. There is renal atrophy as well as cortical cyst. No obstruction. Small amount of insignificant free fluid. No other process seen.. Patient will be admitted to the hospital at this time. I did update him of the results of the CT imaging. I spoke with the admitting team under Dr. Eastman who was in agreement this plan. Patient was therefore admitted in serious condition to telemetry bed. - Lab Data Result diagrams: 08/10/21 22:30 08/10/21 22:30 Lab Results 08/10/21 08/10/21 08/10/21 Range/Units 22:30 22:30 22:30 WBC 8.6 (3.8-10.6) k/uL RBC 3.94 L (4.30-5.90) m/uL Hgb 12.5 L (13.0-17.5) gm/dL Hct 38.9 L (39.0-53.0) % MCV 98.8 (80.0-100.0) fL MCH 31.9 (25.0-35.0) pg MCHC 32.3 (31.0-37.0) g/dL RDW 13.4 (11.5-15.5) % Plt Count 178 (150-450) k/uL MPV 10.6 Neutrophils % 76 % Lymphocytes % 15 % Monocytes % 7 % Eosinophils % 0 % Basophils % 0 % Neutrophils # 6.6 (1.3-7.7) k/uL Lymphocytes # 1.3 (1.0-4.8) k/uL Monocytes # 0.6 (0-1.0) k/uL Eosinophils # 0.0 (0-0.7) k/uL Basophils # 0.0 (0-0.2) k/uL PT 10.6 (9.0-12.0) sec INR 1.0 (<1.2) APTT 21.1 L (22.0-30.0) sec Sodium 135 L (137-145) mmol/L Potassium 4.3 (3.5-5.1) mmol/L Chloride 106 (98-107) mmol/L Carbon Dioxide 22 (22-30) mmol/L Anion Gap 7 mmol/L BUN 15 (9-20) mg/dL Creatinine 1.70 H (0.66-1.25) mg/dL Est GFR (CKD-EPI)AfAm 44 (>60 ml/min/1.73 sqM) Est GFR (CKD-EPI)NonAf 38 (>60 ml/min/1.73 sqM) Glucose 108 H (74-99) mg/dL Calcium 9.2 (8.4-10.2) mg/dL Magnesium 2.1 (1.6-2.3) mg/dL Total Bilirubin 0.9 (0.2-1.3) mg/dL AST 59 (17-59) U/L ALT 23 (4-49) U/L Alkaline Phosphatase 110 (38-126) U/L Troponin I (0.000-0.034) ng/mL Total Protein 6.3 (6.3-8.2) g/dL Albumin 3.7 (3.5-5.0) g/dL Amylase 59 (30-110) U/L Lipase 88 (23-300) U/L 08/10/21 Range/Units 22:30 WBC (3.8-10.6) k/uL RBC (4.30-5.90) m/uL Hgb (13.0-17.5) gm/dL Hct (39.0-53.0) % MCV (80.0-100.0) fL MCH (25.0-35.0) pg MCHC (31.0-37.0) g/dL RDW (11.5-15.5) % Plt Count (150-450) k/uL MPV Neutrophils % % Lymphocytes % % Monocytes % % Eosinophils % % Basophils % % Neutrophils # (1.3-7.7) k/uL Lymphocytes # (1.0-4.8) k/uL Monocytes # (0-1.0) k/uL Eosinophils # (0-0.7) k/uL Basophils # (0-0.2) k/uL PT (9.0-12.0) sec INR (<1.2) APTT (22.0-30.0) sec Sodium (137-145) mmol/L Potassium (3.5-5.1) mmol/L Chloride (98-107) mmol/L Carbon Dioxide (22-30) mmol/L Anion Gap mmol/L BUN (9-20) mg/dL Creatinine (0.66-1.25) mg/dL Est GFR (CKD-EPI)AfAm (>60 ml/min/1.73 sqM) Est GFR (CKD-EPI)NonAf (>60 ml/min/1.73 sqM) Glucose (74-99) mg/dL Calcium (8.4-10.2) mg/dL Magnesium (1.6-2.3) mg/dL Total Bilirubin (0.2-1.3) mg/dL AST (17-59) U/L ALT (4-49) U/L Alkaline Phosphatase (38-126) U/L Troponin I 4.000 H* (0.000-0.034) ng/mL Total Protein (6.3-8.2) g/dL Albumin (3.5-5.0) g/dL Amylase (30-110) U/L Lipase (23-300) U/L - EKG Data -: EKG Interpreted by Me EKG Comments: 12-lead Electrocardiogram Interpretation Note EKG was reviewed and interpreted by myself. 12-lead ECG performed at 2025 is interpreted by me as revealing normal sinus rhythm at a rate of 86 beats per minute. [place] is normal. UT interval is 159 ms, QRS duration is 120 ms, QTc is 427 ms.. There were no ST or T wave abnormalities to suggest myocardial ischemia or injury. R wave progression across the precordium was satisfactory. By my interpretation this EKG is non-diagnostic for acute ischemia. Critical Care Time Critical Care Time: Yes Total Critical Care Time: 35 Critical Care Time: Upon my evaluation, this patient had a high probability of imminent or life- threatening deterioration due to NSTEMI, heparin administration, which required my direct attention, intervention, and personal management. I have personally provided 35 minutes of critical care time exclusive of time spent on separately billable procedures. Time includes review of laboratory data, radiology results, discussion with consultants, and monitoring for potential decompensation. Interventions were performed as documented in my note. Disposition Clinical Impression: NSTEMI (non-ST elevated myocardial infarction), CKD (chronic kidney disease), Abdominal pain of unknown etiology Disposition: ADMITTED IP TO THIS [facility] Condition: Serious Referrals: Cong Hassan DO [Primary Care Provider] - 1-2 days
--- NOTE | 2021-08-11 00:11 | US ---
EXAMINATION TYPE: US renals and bladder DATE OF EXAM: 08/10/2021 COMPARISON: CT CLINICAL HISTORY: evaluate for hydronephrosis. EC patient with inferior abdominal pain, chest pain, R enal cysts per CT EXAM MEASUREMENTS: Right Kidney: 9.1 x 3.9 x 3.8 cm Left Kidney: 9.2 x 4.5 x 4.8 cm Post Void Residual Volume: not assessed on EC patient Right Kidney: couple of renal cysts seen with larger superior pole cyst = 4.3 x 4.0 x 5.2cm and infer ior pole cyst = 1.3 x 1.6 x 1.5cm; no hydronephrosis Left Kidney: No hydronephrosis is seen; couple of renal cysts seen with larger inferior pole cyst = 4 .8 x 3.8 x 3.7cm. Bladder: thickened bladder wall at 0.6cm A/P Bilateral Jets seen: no, only left ureteral jet was seen within 3 minute observation There is no evidence for hydronephrosis at this point in time. No nephrolithiasis is seen. No gerri s are identified. IMPRESSION: No evidence of a solid renal mass. Bilateral renal cortical cysts. No hydronephrosis.
--- NOTE | 2021-08-11 00:12 | XR ---
EXAMINATION TYPE: XR KUB DATE OF EXAM: 08/11/2021 COMPARISON: NONE HISTORY: Abdominal pain TECHNIQUE: Images obtained 2 views upright FINDINGS: There is no sign of intestinal obstruction or pneumoperitoneum. There are clips from cholec ystectomy. There is pulmonary hyperinflation. There are no definite calcifications over the kidneys. IMPRESSION: Nonacute abdomen. COPD.
--- NOTE | 2021-08-11 00:17 | XR ---
EXAMINATION TYPE: XR chest 2V DATE OF EXAM: 08/11/2021 COMPARISON: 12/13/2019 HISTORY: Lead placement check TECHNIQUE: 2 views FINDINGS: Heart is normal. Lungs are clear of consolidation. Thoracic aorta is atheromatous. There ar e no hilar masses. There is left axillary pacemaker. There is no pleural effusion. IMPRESSION: No active cardiopulmonary disease. No change.
[2021-08-11] MEDS ORDERED: SODIUM CHLORIDE 0.9% 1,000 ML IV STA (00:22)
[2021-08-11] MEDS ORDERED: MORPHINE SULFATE 4 MG/ML SYRINGE IVP STA (00:22)
[2021-08-11] MEDS ORDERED: diphenhydrAMINE 50 MG/ML 1 ML VIAL IVP STA (00:40)
[2021-08-11] MEDS ORDERED: methylPREDNISolone SOD SUCCI 125 MG/2 ML VIAL IV STA (00:40)
[2021-08-11] MEDS ORDERED: NALOXONE 0.4 MG/ML 1 ML VIAL IV PRN (01:41)
[2021-08-11] MEDS ORDERED: ONDANSETRON 4 MG/2 ML VIAL IVP PRN (01:41)
--- NOTE | 2021-08-11 01:49 | CT ---
EXAMINATION TYPE: CT abdomen pelvis w con DATE OF EXAM: 08/11/2021 COMPARISON: 01/22/2020 HISTORY: LLQ pain CT DLP: 591 mGycm Automated exposure control for dose reduction was used. CONTRAST: Performed with IV Contrast, patient injected with 80 mL of Isovue 300. Images obtained from the diaphragm to the floor the pelvis with IV contrast FINDINGS: There is mild subsegmental atelectasis at the lung bases. Heart appears enlarged. Thoracic and abdomi nal aorta are atheromatous. There is dilated biliary tree with common bile duct measuring up to 1.8 c m. There are clips from cholecystectomy. Spleen is intact. There is no sign of pancreatic mass. There is no adrenal mass. There is some right renal atrophy with cortical thinning. There is bilatera l renal cortical cysts measuring up to almost 5 cm. There is no hydronephrosis. Ureters are not dilat ed. There is no retroperitoneal adenopathy. Bladder distends smoothly. There is prostatic calcificati on. There is no inguinal hernia. There is small amount of low-density free fluid in the pelvis. There is no evidence of pelvic mass. There is no mesenteric edema. There is no ascites or free air. There is no bowel obstruction. Lumbar vertebral abnormal alignment. There is no compression fracture. There is degenerative disc lia rowing at L5-S1 with sclerosis. The bony pelvis is intact. Hip joints are intact. IMPRESSION: Atherosclerotic vascular disease. 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 Dilated biliary tree slightly increased compared to old exam. Renal atrophy. Renal cortical cysts. No obstruction. 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
[2021-08-11] MEDS: SODIUM CHLORIDE 0.9% 1,000 ML IV SCH ×3 (03:05→17:53)
[2021-08-11] MEDS: MORPHINE SULFATE 4 MG/ML SYRINGE IV PRN ×5 (03:06→22:11)
[2021-08-11 04:13] VITALS: RESP 18
[2021-08-11 05:10] LABS: Appearance,Urine Clear (Clear); Bilirubin,Urine Negative (Negative); Blood,Urine Negative (Negative); Color,Urine Yellow; Glucose,Urine (UA) Negative (Negative); Ketones,Urine Trace (Negative); Leukocyte Esterase,Urine Negative (Negative); Nitrite,Urine Negative (Negative); PH, Urine 5.5 (5.0-8.0); Protein,Urine Trace (Negative); Specific Gravity,Urine 1.043 (1.001-1.035); Urobilinogen,Urine <2.0 mg/dL (<2.0)
[2021-08-11 05:32] LABS: Basophils % (A) 0 %; Eosinophils % (A) 0 %; HCT 35.6 % (39.0-53.0); HGB 11.4 gm/dL (13.0-17.5); Hypochromasia Slight; Lymphocytes # (A) 0.5 k/uL (1.0-4.8); Lymphocytes % (A) 9 %; MCH 32.5 pg (25.0-35.0); MCV 101.6 fL (80.0-100.0); Macrocytosis Slight; Mean Platelet Volume 9.5; Monocytes # (A) 0.1 k/uL (0-1.0); Monocytes % (A) 2 %; Neutrophils # (A) 5.3 k/uL (1.3-7.7); Neutrophils % (A) 89 %; Platelet Count 139 k/uL (150-450); RDW 13.3 % (11.5-15.5); WBC 5.9 k/uL (3.8-10.6)
[2021-08-11 06:27] LABS: Prothrombin Time 10.9 sec (9.0-12.0)
[2021-08-11] MEDS ORDERED: NON FORMULARY DRUG (Ubidecarenone [Co Q-10] 100 MG Capsule) PO SCH (09:00)
[2021-08-11] MEDS: FUROSEMIDE 40 MG TAB PO SCH (09:19)
[2021-08-11] MEDS: CLOPIDOGREL 75 MG TAB PO SCH (09:19)
[2021-08-11] MEDS: DULoxetine HCL 60 MG CAPSULE.DR PO SCH (09:19)
[2021-08-11] MEDS: carvediloL 6.25 MG TAB PO SCH ×2 (09:19→22:09)
[2021-08-11] MEDS: SPIRONOLACTONE 25 MG TAB PO SCH (09:19)
[2021-08-11] MEDS: ASPIRIN 81 MG PO SCH (09:19)
[2021-08-11] MEDS: lisinopriL 10 MG TAB PO SCH ×2 (09:19→22:10)
[2021-08-11] MEDS ORDERED: ATORVASTATIN 80 MG TAB PO STA (10:12)
[2021-08-11] MEDS ORDERED: ALPRAZolam 0.5 MG TAB PO PRN (10:12)
[2021-08-11] MEDS ORDERED: ALPRAZolam 0.25 MG TAB PO PRN (10:12)
[2021-08-11] MEDS ORDERED: NITROGLYCERIN SL TABS 0.4 MG TAB SUBLINGUAL PRN (10:12)
[2021-08-11] MEDS ORDERED: ASPIRIN 325 MG TAB PO STA (10:12)
--- NOTE | 2021-08-11 11:00 | ECHOF ---
Referral Reason:nstemi MEASUREMENTS -------- HEIGHT: 175.3 cm WEIGHT: 65.8 kg BP: RVIDd: 3.1 cm (< 3.3) IVSd: 1.2 cm (0.6 - 1.1) LVIDd: 6.2 cm (3.9 - 5.3) LVPWd: 1.0 cm (0.6 - 1.1) IVSs: 1.4 cm LVIDs: 5.6 cm LVPWs: 1.3 cm LA Diam: 4.4 cm (2.7 - 3.8) LAESV Index (A-L): 68.97 ml/m Ao Diam: 4.1 cm (2.0 - 3.7) AV Cusp: 1.6 cm (1.5 - 2.6) LA Diam: 4.3 cm (2.7 - 3.8) MV EXCURSION: 15.271 mm (> 18.000) MV EF SLOPE: 45 mm/s (70 - 150) EPSS: 1.9 cm MV E Valentino: 0.32 m/s MV DecT: 244 ms MV A Valentino: 0.90 m/s MV E/A Ratio: 0.36 AR PHT: 492 ms RAP: 5.00 mmHg RVSP: 48.80 mmHg FINDINGS -------- Paced rhythm. This was a technically good study. The left ventricle is moderately dilated. Left ventricular wall thickness is normal. Overall left ventricular systolic function is moderate-severely impaired with, an EF between 30 - 35 %. Inferio rlateral Hypokinesis The right ventricle is normal in size. LA is severely dilated >40 ml/m2 The right atrial size is normal. There is mild aortic valve sclerosis. There is moderate aortic regurgitation. Mild mitral annular calcification present. Mild mitral regurgitation is present. Mild tricuspid regurgitation present. There is moderate pulmonary hypertension. The right ventric ular systolic pressure, as measured by Doppler, is 48.80mmHg. Trace/mild (physiologic) pulmonic regurgitation. The aortic root size is normal. There is no pericardial effusion. CONCLUSIONS -------- 1. The left ventricle is moderately dilated. 2. Left ventricular wall thickness is normal. 3. Overall left ventricular systolic function is moderate-severely impaired with, an EF between 30 - 35 %. 4. Inferiorlateral Hypokinesis 5. The right ventricle is normal in size. 6. LA is severely dilated >40 ml/m2 7. The right atrial size is normal. 8. There is mild aortic valve sclerosis. 9. There is moderate aortic regurgitation. 10. Mild mitral annular calcification present. 11. Mild mitral regurgitation is present. 12. Mild tricuspid regurgitation present. 13. There is moderate pulmonary hypertension. 14. The right ventricular systolic pressure, as measured by Doppler, is 48.80mmHg. 15. Trace/mild (physiologic) pulmonic regurgitation. 16. The aortic root size is normal. 17. There is no pericardial effusion. ENGLISH AS A SECOND LANGUAGE TEACHER: Anat Kat RDCS
[2021-08-11 12:16] VITALS: BMI 21.4
[2021-08-11] MEDS: NITROGLYCERIN OINT 1 INCH/GM PACKET TOPICAL SCH ×2 (12:29→17:52)
--- NOTE | 2021-08-11 12:38 | P.CRDCN ---
History of Present Illness Consult date: 08/11/21 History of present illness: HISTORY OF PRESENT ILLNESS: This is a 75-year-old male with a past medical history significant for ischemic cardiomyopathy, coronary artery disease with previous PCI and CABG, hypertension, hyperlipidemia, former nicotine dependence, and BiV ICD implantation. Patient follows in the office with Dr. Chisholm. We have been asked to see the patient in consultation for chest pain. Patient examined at the bedside. Patient states he has been having chest pain for approximately the last week. He reports the pain goes across his entire chest and feels like a burning sensation. The patient did have an episode of chest pain again this morning and received sublingual nitro. At the time of my examination, the patient denies chest pain or pressure. * EKG reveals sinus mechanism * Chest xray no active cardiopulmonary disease. No change. * Laboratory data: WBC 5.9. Hemoglobin 11.4. Platelet count 139. Sodium 135. Potassium 4.3. BUN 15. Creatinine 1.70. Troponin 4.0. 3.150. 2.780. * Current home cardiac medications include lisinopril 10 mg twice a day, carvedilol 6.25 mg twice a day, spironolactone 25 mg daily, Lasix 40 mg daily, Plavix 75 mg daily, Lipitor 80 mg at night, aspirin 81 mg daily * Echocardiogram completed revealing ejection fraction 30-35%, inferior lateral hypokinesis, moderate aortic regurgitation, mild MR, mild TR, moderate pulmonary hypertension * Cardiac catheterization history: December 2019. Impella assisted PCI. Patient underwent angioplasty and stenting of major diagonal branch with a drug- eluting stent. 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 He also underwent angioplasty and stenting of mid left anterior descending coronary artery with a drug-eluting stent. REVIEW OF SYSTEMS: At the time of my exam: CONSTITUTIONAL: Denies fever or chills. HEENT: Denies blurred vision, vision changes, or eye pain. Denies hemoptysis CARDIOVASCULAR: Denies chest pain. Denies orthopnea. Denies PND. Denies palpitations RESPIRATORY: Denies shortness of breath. GASTROINTESTINAL: Denies abdominal pain. Denies nausea or vomiting. HEMATOLOGIC: Denies bleeding disorders. GENITOURINARY: Denies any blood in urine. SKIN: Denies pruitis. Denies rash. PHYSICAL EXAM: VITAL SIGNS: Reviewed. GENERAL: Well-developed in no acute distress. HEENT: Head is normocephalic. Pupils are equal, round. Sclerae anicteric. Mucous membranes of the mouth are moist. Neck supple. No JVD or thyromegaly LUNGS: Respirations even and unlabored. Lungs essentially clear to auscultation bilaterally. HEART: Regular rate and rhythm. S1 and S2 heard. ABDOMEN: Soft. Nondistended. Nontender. EXTREMITIES: Normal range of motion. No clubbing or cyanosis. Peripheral pulses intact. No lower extremity edema NEUROLOGIC: Awake and alert. Oriented x 3. ASSESSMENT: Chest pain Non-STEMI Coronary artery disease with previous CABG and PCI Ischemic cardiomyopathy History of ventricular tachycardia History of biventricular AICD implantation Hypertension Hyperlipidemia Former nicotine dependence PLAN: Continue IV heparin Resume home cardiac medications Patient to undergo cardiac cath today with Dr. Chisholm Further recommendations pending patient course Nurse practitioner note has been reviewed by physician. Signing provider agrees with the documented findings, assessment, and plan of care. Past Medical History Past Medical History: Coronary Artery Disease (CAD), Chest Pain / Angina, COPD, Hyperlipidemia, Hypertension, Myocardial Infarction ([place]), Musculoskeletal Di sorder, Osteoarthritis (OA), Prostate Disorder, Sleep Apnea/CPAP/BIPAP Additional Past Medical History / Comment(s): states incision from AICD healing, CABG, HH, fibromyalgia, anemia, hypogonadism, vtach, NSTEMI 10/20/19, CPAP use, Inogen portable. Kidney stone pain occ currently; left flank pain, chronic toni shoulder pain, states has numbness rt arm Last Myocardial Infarction Date:: 10/20/19 History of Any Multi-Drug Resistant Organisms: None Reported Past Surgical History: Adenoidectomy, AICD, Back Surgery, Cholecystectomy, Coronary Bypass/CABG, Heart Catheterization, Hernia Repair, Orthopedic Surgery, Tonsillectomy Additional Past Surgical History / Comment(s): CABG x3 in 1999, rhinoplasty, ACDF 2, left bunionectomy, Lasik, lipoma from left shoulder 2, colonoscopy 5 years ago, hernia repair. Past Anesthesia/Blood Transfusion Reactions: No Reported Reaction Type of Cardiac Device: AICD Device Placement Date:: 12/11/29 Past Psychological History: No Psychological Hx Reported Smoking Status: Former smoker Past Alcohol Use History: None Reported Additional Past Alcohol Use History / Comment(s): Quit smoking 1985, smoked 2ppd from age 14 Past Drug Use History: None Reported - Past Family History Mother Family Medical History: Cancer, Coronary Artery Disease (CAD) Father Family Medical History: Cancer Brother(s) Family Medical History: Congestive Heart Failure (CHF), Coronary Artery Disease (CAD) Sister(s) Family Medical History: Congestive Heart Failure (CHF) Medications and Allergies Home Medications Medication Instructions Recorded Confirmed Type ALPRAZolam [Xanax] 0.25 mg PO TID PRN 10/20/19 08/10/21 History Aspirin 81 mg PO DAILY chew 10/26/19 08/10/21 Rx Clopidogrel [Plavix] 75 mg PO DAILY #30 tab 10/26/19 08/10/21 Rx Furosemide [Lasix] 40 mg PO DAILY #30 tab 10/26/19 08/10/21 Rx Nitroglycerin Sl Tabs [Nitrostat] 0.4 mg SUBLINGUAL Q5M PRN #25 tab 10/26/19 08/10/21 Rx Prevagen 1 tab PO DAILY 12/08/19 08/10/21 History Spironolactone [Aldactone] 25 mg PO DAILY 12/08/19 08/10/21 History Vit C/E/Zn/Coppr/Lutein/Zeaxan 1 tab PO DAILY 12/08/19 08/10/21 History [Preservision Areds 2 Softgel] carvediloL [Coreg] 6.25 mg PO BID #180 tablet 12/12/19 08/10/21 Rx lisinopriL 10 mg PO BID 12/28/19 08/10/21 History Tamsulosin [Flomax] 0.4 mg PO HS 02/16/20 08/10/21 History Acetaminophen [Tylenol 8 Hour] 650 mg PO Q8H PRN 08/10/21 08/10/21 History Atorvastatin [Lipitor] 80 mg PO HS 08/10/21 08/10/21 History DULoxetine HCL [Cymbalta] 60 mg PO DAILY 08/10/21 08/10/21 History L.acidoph,Paracasei, B.lactis 1 cap PO DAILY PRN 08/10/21 08/10/21 History [Probiotic] Morphine Sulfate ER [Ms Contin] 15 mg PO HS 08/10/21 08/10/21 History Potassium Citrate [Urocit-K] 10 meq PO BID 08/10/21 08/10/21 History Ubidecarenone [Co Q-10] 100 mg PO DAILY 08/10/21 08/10/21 History Z Quil 2 tab PO HS 08/10/21 08/10/21 History oxyCODONE-APAP 10-325MG [Percocet 1 tab PO Q6H PRN 08/10/21 08/10/21 History 10-325 mg] Allergies Allergy/AdvReac Type Severity Reaction Status Date / Time Iodinated Contrast Media AdvReac Unknown Verified 08/11/21 00:48 Physical Exam Vitals: Vital Signs Temp Pulse Pulse Resp BP BP Pulse Ox 08/11/21 08:00 98.1 F 80 18 151/74 99 08/11/21 04:00 98.8 F 79 18 162/82 96 08/11/21 02:10 88 16 147/89 97 08/11/21 02:00 98 18 142/76 97 08/10/21 22:21 84 18 149/74 98 08/10/21 21:27 76 18 157/88 97 08/10/21 20:16 98.5 F 84 18 157/78 99 Intake and Output 08/10/21 08/11/21 08/11/21 22:59 06:59 14:59 Intake Total 10 Output Total 250 Balance -240 Intake: IV 10 Invasive Line 2 10 Output: Urine 250 Other: Voiding Method Urinal Urinal # Voids 0 Weight 65.771 kg 65.771 kg 65.771 kg Results 08/11/21 05:08 08/10/21 22:30 Cardiac Enzymes 08/10/21 08/10/21 08/11/21 Range/Units 22:30 22:30 03:02 AST 59 (17-59) U/L Troponin I 4.000 H* 3.150 H* (0.000-0.034) ng/mL 08/11/21 Range/Units 05:08 AST (17-59) U/L Troponin I 2.780 H* (0.000-0.034) ng/mL Coagulation 08/10/21 08/11/21 08/11/21 Range/Units 22:30 05:08 05:08 PT 10.6 10.9 (9.0-12.0) sec APTT 21.1 L 47.1 H (22.0-30.0) sec CBC 08/10/21 08/11/21 Range/Units 22:30 05:08 WBC 8.6 5.9 (3.8-10.6) k/uL RBC 3.94 L 3.50 L (4.30-5.90) m/uL Hgb 12.5 L 11.4 L (13.0-17.5) gm/dL Hct 38.9 L 35.6 L (39.0-53.0) % Plt Count 178 139 L (150-450) k/uL Comprehensive Metabolic Panel 08/10/21 Range/Units 22:30 Sodium 135 L (137-145) mmol/L Potassium 4.3 (3.5-5.1) mmol/L Chloride 106 (98-107) mmol/L Carbon Dioxide 22 (22-30) mmol/L BUN 15 (9-20) mg/dL Creatinine 1.70 H (0.66-1.25) mg/dL Glucose 108 H (74-99) mg/dL Calcium 9.2 (8.4-10.2) mg/dL AST 59 (17-59) U/L ALT 23 (4-49) U/L Alkaline Phosphatase 110 (38-126) U/L Total Protein 6.3 (6.3-8.2) g/dL Albumin 3.7 (3.5-5.0) g/dL Current Medications Generic Name Dose Route Start Last Admin Trade Name Freq PRN Reason Stop Dose Admin Alprazolam 0.25 mg 08/11/21 10:12 Alprazolam 0.25 Mg Tab PO Q6HR PRN Mild Anxiety Alprazolam 0.5 mg 08/11/21 10:12 Alprazolam 0.5 Mg Tab PO Q6HR PRN Moderate Anxiety Aspirin 81 mg 08/11/21 09:00 08/11/21 09:19 Aspirin 81 Mg PO 81 mg DAILY GORDY Administration Atorvastatin Calcium 80 mg 08/11/21 21:00 Atorvastatin [address] [facility] Carvedilol 6.25 mg 08/11/21 09:00 08/11/21 09:19 Carvedilol 6.25 Mg Tab PO 6.25 mg BID GORDY Administration Clopidogrel Bisulfate 75 mg 08/11/21 09:00 08/11/21 09:19 Clopidogrel 75 Mg Tab PO 75 mg DAILY GORDY Administration Duloxetine HCl 60 mg 08/11/21 09:00 08/11/21 09:19 Duloxetine Hcl 60 Mg Capsule.Dr PO 60 mg DAILY GORDY Administration Furosemide 40 mg 08/11/21 09:00 08/11/21 09:19 Furosemide 40 Mg Tab PO 40 mg DAILY GORDY Administration Heparin Sodium (Porcine) 0 unit 08/10/21 23:27 Heparin Sodium 1,000 Un/Ml (10ml Vl) IV PER PROTOCOL PRN Low PTT Protocol Heparin Sodium/Sodium Chloride 250 mls @ 7.893 mls/hr 08/10/21 23:30 08/10/21 23:59 25,000 unit/ Sodium Chloride IV 12 units/kg/hr .Q24H GORDY 7.893 mls/hr Administration Protocol 12 UNITS/KG/HR Sodium Chloride 1,000 mls @ 75 mls/hr 08/11/21 01:45 08/11/21 03:05 Saline 0.9% IV 75 mls/hr .[id number] GORDY Administration Heparin Sodium (Porcine) 10, 1,001 mls @ 999 mls/hr 08/12/21 07:00 000 unit/ Sodium Chloride IRRIGATION 08/12/21 23:00 ONCE PRN INTRA-OP Heparin Sodium (Porcine) 2,500 250.5 mls @ 250 mls/hr 08/12/21 07:00 unit/ Sodium Chloride IRRIGATION 08/12/21 23:00 ONCE PRN INTRA-OP Lisinopril 10 mg 08/11/21 09:00 08/11/21 09:19 Lisinopril 10 Mg Tab PO 10 mg BID GORDY Administration Morphine Sulfate 4 mg 08/11/21 01:41 08/11/21 11:18 Morphine Sulfate 4 Mg/Ml Syringe IV 4 mg Q4HR PRN Administration Severe Pain Naloxone HCl 0.2 mg 08/11/21 01:41 Naloxone 0.4 Mg/Ml 1 Ml Vial IV Q2M PRN Opioid Reversal Nitroglycerin 0.4 mg 08/11/21 10:12 08/11/21 12:07 Nitroglycerin Sl Tabs 0.4 Mg Tab SUBLINGUAL 0.4 mg Q5M PRN Administration Chest Pain Nitroglycerin 1 inch 08/11/21 12:30 08/11/21 12:29 Nitroglycerin Oint 1 Inch/Gm Packet TOPICAL 1 inch Q6HR GORDY Administration Ondansetron HCl 4 mg 08/11/21 01:41 Ondansetron 4 Mg/2 Ml Vial IVP Q8HR PRN Nausea And Vomiting Spironolactone 25 mg 08/11/21 09:00 08/11/21 09:19 Spironolactone 25 Mg Tab PO 25 mg DAILY GORDY Administration Tamsulosin HCl 0.4 mg 08/11/21 21:00 Tamsulosin 0.4 Mg Cap.Er.24h PO HS GORDY Intake and Output 08/10/21 08/11/21 08/11/21 22:59 06:59 14:59 Intake Total 10 Output Total 250 Balance -240 Intake: IV 10 Invasive Line 2 10 Output: Urine 250 Other: Voiding Method Urinal Urinal # Voids 0 Weight 65.771 kg 65.771 kg 65.771 kg Patient Weight 08/12/21 06:59 Weight 65.771 kg 08/11/21 05:08 08/10/21 22:30
--- NOTE | 2021-08-11 14:30 | P.HPIM ---
History of Present Illness H&P Date: 08/11/21 HISTORY OF PRESENT ILLNESS This is a 76-year-old male patient of Dr. Hassan with past medical history of hypertension, coronary artery disease status post CABG in 2001, ischemic cardiomyopathy with biventricular ICD implantation, hyperlipidemia, hiatal hernia status post Ramona fundoplication, patient complains of chest pain that goes into his back but denies any radiation into his arm or neck. Complains of a burning sensation, no nausea or vomiting, no lightheadedness or dizziness. Patient does complain of difficulty swallowing that has been going on for 1 week and feeling the pills are getting stuck in his throat. He also states he has lost 10 pounds over the past week. At the time of evaluation, patient is having chest pain and Nitropaste added. Patient presented to [facility] emergency center. EKG sinus rhythm. Chest x-ray shows no acute cardio pulmonary disease. WBC 5.9, hemoglobin 11.4, platelet count 139. Sodium 135, potassium 4.3, BUN 15 creatinine 1.7. Troponins 4.0, 3.150, 2.780. Echocardiogram reveals EF 30-35%, moderate aortic regurgitation, mild mitral regurgitation, mild tricuspid regurgitation, moderate pulmonary hypertension. Patient is seen today on the cardiac stepdown unit. Patient has been seen by cardiology with plan for cardiac catheterization this afternoon. REVIEW OF SYSTEMS Constitutional: No fever, no chills, no night sweats. No weight change. No weakness, fatigue or lethargy. No daytime sleepiness. EENT: No headache. No blurred vision or double vision, no loss of vision. No loss of Hearing, no ringing in the ears, no dizziness. No nasal drainage or congestion. No epistaxis. No sore throat. Lungs: No shortness of breath, cough, no sputum production. No wheezing. Cardiovascular: Reports chest pain with radiation to his back, no lower extremity edema. No palpitations. No paroxysmal nocturnal dyspnea. No orthopnea. No lightheadedness or dizziness. No syncopal episodes. Abdominal: No abdominal pain. No nausea, vomiting. No diarrhea. No constipati on. No bloody or tarry stools. No loss of appetite. Genitourinary: No dysuria, increased frequency, urgency. No urinary retention. Musculoskeletal: No myalgias. No muscle weakness, no gait dysfunction, no frequent falls. No back pain. No neck pain. Integumentary: No wounds, no lesions. No rash or pruritus. No unusual bruising. No change in hair or nails. Neurologic: No aphasia. No facial droop. No change in mentation. No head injury. No headache. No paralysis. No paresthesia. Psychiatric: No depression. No anxiety. No mood swings. Endocrine: No abnormal blood sugars. No weight change. No excessive sweating or thirst. No cold intolerance. SOCIAL HISTORY Patient was a smoker of 2-3 packs per day for 26 years and quit in 1985. He drinks a call very rarely. No marijuana or illicit drug use. FAMILY HISTORY Mother at age 86 from colon cancer. Father at age 81 from jaw cancer. Patient has 2 brothers and both the past from heart failure. Patient had 1 sister that at age 13 from rheumatic heart disease. He states he also has a niece and nephew that have congestive heart failure. He does not have any ch ildren. PHYSICAL EXAMINATION Gen: This is a 76-year-old male. He is resting in bed and appears to be uncomfortable secondary to pain. HEENT: Head is atraumatic, normocephalic. Pupils equal, round. Sclerae is anicteric. NECK: Supple. No JVD. No lymphadenopathy. No thyromegaly. LUNGS: Clear to auscultation. No wheezes or rhonchi. No intercostal retractions. HEART: Regular rate and rhythm. No murmur. ABDOMEN: Soft. Bowel sounds are present. No masses. No tenderness. EXTREMITIES: No pedal edema. No calf tenderness. NEUROLOGICAL: Patient is awake, alert and oriented x3. Cranial nerves 2 through 12 are grossly intact. ASSESSMENT AND PLAN 1. Non-ST elevated myocardial infarction. Patient has been seen by cardiology, cardiac catheterization scheduled for this afternoon. Nitropaste added 1 inch every 6 hours. Continue aspirin 81 mg daily, Lipitor 80 mg at bedtime, Coreg 6.25 mg twice daily, Plavix 75 mg daily, heparin drip, lisinopril 10 mg twice daily, morphine as needed for pain. 2. History of coronary artery disease with previous CABG and PCI. Continue as in #1. 3. Ischemic cardiomyopathy status post AICD implantation. Continue Lasix 40 mg daily, Aldactone 25 mg daily. 4. History of ventricular tachycardia. 5. Hypertension. Continue Coreg, lisinopril, Aldactone, Lasix 6. Hyperlipidemia. Continue atorvastatin 7. Remote history of tobacco use. 8. History of Ramona fundal location. 9. Difficulty swallowing pills with recent palate surgery. Stage therapy consult 10. GI prophylaxis. Protonix. 11. Benign prostatic hypertrophy. Continue Flomax 4 mg at bedtime. Patient will be admitted to the hospital for a minimum of 2 night stay. DISCHARGE PLAN Homeprot. Impression and plan of care have been directed as dictated by the signing physician. April Taylor nurse practitioner acting as scribe for signing physician. Past Medical History Past Medical History: Coronary Artery Disease (CAD), Chest Pain / Angina, COPD, Hyperlipidemia, Hypertension, Myocardial Infarction ([place]), Musculoskeletal Disorder, Osteoarthritis (OA), Prostate Disorder, Sleep Apnea/CPAP/BIPAP Additional Past Medical History / Comment(s): states incision from AICD healing, CABG, HH, fibromyalgia, anemia, hypogonadism, vtach, NSTEMI 10/20/19, CPAP use, Inogen portable. Kidney stone pain occ currently; left flank pain, chronic toni shoulder pain, states has numbness rt arm Last Myocardial Infarction Date:: 10/20/19 History of Any Multi-Drug Resistant Organisms: None Reported Past Surgical History: Adenoidectomy, AICD, Back Surgery, Cholecystectomy, Coronary Bypass/CABG, Heart Catheterization, Hernia Repair, Orthopedic Surgery, Tonsillectomy Additional Past Surgical History / Comment(s): CABG x3 in 1999, rhinoplasty, ACDF 2, left bunionectomy, Lasik, lipoma from left shoulder 2, colonoscopy 5 years ago, hernia repair. Past Anesthesia/Blood Transfusion Reactions: No Reported Reaction Type of Cardiac Device: AICD Device Placement Date:: 12/11/29 Past Psychological History: No Psychological Hx Reported Smoking Status: Former smoker Past Alcohol Use History: None Reported Additional Past Alcohol Use History / Comment(s): Quit smoking 1985, smoked 2ppd from age 14 Past Drug Use History: None Reported - Past Family History Mother Family Medical History: Cancer, Coronary Artery Disease (CAD) Father Family Medical History: Cancer Brother(s) Family Medical History: Congestive Heart Failure (CHF), Coronary Artery Disease (CAD) Sister(s) Family Medical History: Congestive Heart Failure (CHF) Medications and Allergies Home Medications Medication Instructions Recorded Confirmed Type ALPRAZolam [Xanax] 0.25 mg PO TID PRN 10/20/19 08/10/21 History Aspirin 81 mg PO DAILY chew 10/26/19 08/10/21 Rx Clopidogrel [Plavix] 75 mg PO DAILY #30 tab 10/26/19 08/10/21 Rx Furosemide [Lasix] 40 mg PO DAILY #30 tab 10/26/19 08/10/21 Rx Nitroglycerin Sl Tabs [Nitrostat] 0.4 mg SUBLINGUAL Q5M PRN #25 tab 10/26/19 0 08/10/21 Rx Prevagen 1 tab PO DAILY 12/08/19 08/10/21 History Spironolactone [Aldactone] 25 mg PO DAILY 12/08/19 08/10/21 History Vit C/E/Zn/Coppr/Lutein/Zeaxan 1 tab PO DAILY 12/08/19 08/10/21 History [Preservision Areds 2 Softgel] carvediloL [Coreg] 6.25 mg PO BID #180 tablet 12/12/19 08/10/21 Rx lisinopriL 10 mg PO BID 12/28/19 08/10/21 History Tamsulosin [Flomax] 0.4 mg PO HS 02/16/20 08/10/21 History Acetaminophen [Tylenol 8 Hour] 650 mg PO Q8H PRN 08/10/21 08/10/21 History Atorvastatin [Lipitor] 80 mg PO HS 08/10/21 08/10/21 History DULoxetine HCL [Cymbalta] 60 mg PO DAILY 08/10/21 08/10/21 History L.acidoph,Paracasei, B.lactis 1 cap PO DAILY PRN 08/10/21 08/10/21 History [Probiotic] Morphine Sulfate ER [Ms Contin] 15 mg PO HS 08/10/21 08/10/21 History Potassium Citrate [Urocit-K] 10 meq PO BID 08/10/21 08/10/21 History Ubidecarenone [Co Q-10] 100 mg PO DAILY 08/10/21 08/10/21 History Z Quil 2 tab PO HS 08/10/21 08/10/21 History oxyCODONE-APAP 10-325MG [Percocet 1 tab PO Q6H PRN 08/10/21 08/10/21 History 10-325 mg] Allergies Allergy/AdvReac Type Severity Reaction Status Date / Time Iodinated Contrast Media AdvReac Unknown Verified 08/11/21 00:48 Physical Exam Vitals: Vital Signs Temp Pulse Pulse Resp BP BP Pulse Ox 08/11/21 04:00 98.8 F 79 18 162/82 96 08/11/21 02:10 88 16 147/89 97 08/11/21 02:00 98 18 142/76 97 08/10/21 22:21 84 18 149/74 98 08/10/21 21:27 76 18 157/88 97 08/10/21 20:16 98.5 F 84 18 157/78 99 Intake and Output 08/10/21 08/11/21 08/11/21 22:59 06:59 14:59 Intake Total 10 Output Total 250 Balance -240 Intake: IV 10 Invasive Line 2 10 Output: Urine 250 Other: Voiding Method Urinal # Voids 0 Weight 65.771 kg 65.771 kg Results CBC & Chem 7: 08/11/21 05:08 08/10/21 22:30 Labs: Abnormal Lab Results - Last 24 Hours (Table) 08/10/21 08/10/21 08/10/21 Range/Units 22:30 22:30 22:30 RBC 3.94 L (4.30-5.90) m/uL Hgb 12.5 L (13.0-17.5) gm/dL Hct 38.9 L (39.0-53.0) % MCV (80.0-100.0) fL Plt Count (150-450) k/uL Lymphocytes # (1.0-4.8) k/uL APTT 21.1 L (22.0-30.0) sec Sodium 135 L (137-145) mmol/L Creatinine 1.70 H (0.66-1.25) mg/dL Glucose 108 H (74-99) mg/dL Troponin I (0.000-0.034) ng/mL Ur Specific [place] (1.001-1.035) Urine Protein (Negative) Urine Ketones (Negative) 08/10/21 08/11/21 08/11/21 Range/Units 22:30 03:02 04:33 RBC (4.30-5.90) m/uL Hgb (13.0-17.5) gm/dL Hct (39.0-53.0) % MCV (80.0-100.0) fL Plt Count (150-450) k/uL Lymphocytes # (1.0-4.8) k/uL APTT (22.0-30.0) sec Sodium (137-145) mmol/L Creatinine (0.66-1.25) mg/dL Glucose (74-99) mg/dL Troponin I 4.000 H* 3.150 H* (0.000-0.034) ng/mL Ur Specific [place] 1.043 H (1.001-1.035) Urine Protein Trace H (Negative) Urine Ketones Trace H (Negative) 08/11/21 08/11/21 08/11/21 Range/Units 05:08 05:08 05:08 RBC 3.50 L (4.30-5.90) m/uL Hgb 11.4 L (13.0-17.5) gm/dL Hct 35.6 L (39.0-53.0) % MCV 101.6 H (80.0-100.0) fL Plt Count 139 L (150-450) k/uL Lymphocytes # 0.5 L (1.0-4.8) k/uL APTT 47.1 H (22.0-30.0) sec Sodium (137-145) mmol/L Creatinine (0.66-1.25) mg/dL Glucose (74-99) mg/dL Troponin I 2.780 H* (0.000-0.034) ng/mL Ur Specific [place] (1.001-1.035) Urine Protein (Negative) Urine Ketones (Negative) Thrombosis Risk Factor Assmnt - Choose All That Apply Any of the Below Risk Factors Present?: Yes Each Factor Represents 1 point: Abnormal pulmonary function (COPD) Other Risk Factors: Yes Each Risk Factor Represents 3 Points: Age 75 years or older Thrombosis Risk Factor Assessment Total Risk Factor Score: 4 Thrombosis Risk Factor Assessment Level: Moderate Risk
[2021-08-11] MEDS ORDERED: LIDOCAINE 1% INJ 10MG/ML (20 ML MDV) ONE (15:41)
[2021-08-11] MEDS: MIDAZOLAM 2 MG/2 ML VIAL IV ONE ×2 (16:00→16:14)
[2021-08-11] MEDS ORDERED: LIDOCAINE 1% INJ 10MG/ML (20 ML MDV) SQ ONE (16:12)
[2021-08-11] MEDS ORDERED: IV FLUID CONTINUATION 950 ML IV ONE (16:12)
[2021-08-11] MEDS ORDERED: fentaNYL (PF) 50 MCG/ML 2 ML AMP ONE (16:15)
[2021-08-11] MEDS: fentaNYL (PF) 50 MCG/ML 2 ML AMP IV ONE ×2 (16:16→16:50)
[2021-08-11] MEDS ORDERED: IOPAMIDOL-370 100ML BTL INJ ONE ×2 (16:35→16:43)
[2021-08-11] MEDS ORDERED: RX INFO: IV CONTRAST WAS GIVEN 1 EACH MISC MISCELLANE PRN (17:14)
--- NOTE | 2021-08-11 18:04 | CC ---
CARDIAC CATHETERIZATION REPORT DATE OF SERVICE: 08/11/2021. PROCEDURE: Left heart catheterization, coronary angiography, selective injection of bypass grafts and left internal mammary artery graft injection. PERFORMED BY: Dr. Mandie Chisholm. Moderate conscious sedation time was 47 minutes. Patient was administered Versed. Oxygen saturation, hemodynamics and EKG were monitored closely. CLINICAL INFORMATION: Mr. Trino Brandt is a 76-year-old gentleman with a history of ischemic cardiomyopathy, previous bypass surgery, myocardial infarction and PCI with Impella support. His last percutaneous coronary intervention was performed in December 2019 with Impella support. He had PTCA and stenting of proximal LAD, mid LAD, a ECONOMICS INSTRUCTOR intervention of a diagonal branch, and also a ECONOMICS INSTRUCTOR intervention of circumflex coronary artery. Left main was not stented. There was a 30% blockage in the left main at that time. Mid LAD was also stented. Patient did fairly well. He has a biventricular ICD. Ejection fraction is in the 40% range. However, he came into the hospital with symptoms of chest discomfort, had troponin elevation suggestive of [id number] NV. He was pain-free and hemodynamically stable, but given his significant previous intervention, he was advised cardiac catheterization. His creatinine was elevated. He was hydrated and brought in for the procedure later in the day. This patient underwent aortocoronary bypass surgery in 2000. He had a left internal mammary artery bypass to the LAD, he had a vein graft to the PLV branch of RCA, and another free radial artery graft to the PDA branch of RCA. Left circumflex was not grafted. Cardiac catheterization revealed that the vein graft to the PLV was totally occluded. The free radial artery graft to the RPDA was widely patent. WHITE to LAD was patent with diffuse disease in the lower brule LAD. I performed stenting of proximal LAD, mid LAD, and then also did a major diagonal branch, which was a chronic total occlusion, and also circumflex, which was a chronic total occlusion as well. This was performed in December 2019. PROCEDURE NOTE: Under local anesthesia and strict aseptic precautions, a 6-Spanish introducer was placed in the right femoral artery. Using a JL4 catheter, I performed selective coronary angiography of the left system. I used a Matias catheter for the WHITE injection. The same Matias catheter was used to perform selective injection of the bypass graft, which was a vein bypass to the PLV branch that was totally occluded. I used a right bypass diagnostic catheter and performed selective coronary angiography of the PDA graft; this was a free radial artery graft to the PDA. I used a pigtail catheter to check LV pressures. I used a Matias catheter for the WHITE injection. The sheath was taken out and Angio-Seal device used to secure hemostasis. He was sent to the room in stable condition. The contrast use was less than 90 mL. CARDIAC CATHETERIZATION FINDINGS: The left ventricular end-diastolic pressure was 15 mmHg without any gradient across the aortic valve. CORONARY ANGIOGRAPHY FINDINGS: LEFT MAIN CORONARY ARTERY: This vessel has a 70% stenosis distally just before it bifurcates. Ostium of the left main is patent. Distally there is a 70% to 80% narrowing and it bifurcates into LAD and circumflex. LEFT ANTERIOR DESCENDING CORONARY ARTERY: This vessel is totally occluded in the mid portion. The previously stented mid LAD is now occluded. The diagonal branch that comes off from the LAD, however, is widely patent and the stented segment is also widely patent with good flow. The mid LAD therefore is totally occluded, and not much antegrade flow is noted. LEFT POSTERIOR CIRCUMFLEX CORONARY ARTERY: This is a nondominant vessel, and I performed stenting of the ostium of the circumflex into the first obtuse marginal. This vessel is widely patent at the ostium. In the middle of the body of the stent within the first obtuse marginal in the proximal portion, there is evidence of a restenosis with a narrowing of up to 80% to 90%. This is best seen in the a shallow [place] caudal projection. Within the circumflex, there is a restenotic lesion inside the previous stent. Ostium of the circumflex is widely patent and continuation of circumflex in the AV groove is also free of significant disease, although there is a 50% disease because this vessel was jailed, but the flow is brisk. RIGHT CORONARY ARTERY: Dominant vessel, totally occluded in the mid portion without much antegrade flow. LEFT INTERNAL MAMMARY ARTERY GRAFT TO THE LAD: This graft is widely patent in the proximal portion, and no significant disease insertion site. Following the insertion, the lower brule LAD has diffuse disease in the mid portion up to 70% diffusely diseased, but seems to opacify a lot of branches of the circumflex system as well. [place] LAD therefore fills both antegrade and retrograde and there is diffuse disease, especially in the antegrade portion where there is almost a 70% long area of narrowing. WHITE itself is free of significant disease. SAPHENOUS VEIN GRAFT TO THE PLV BRANCH OF RCA: This graft is totally occluded, seen as a stump. FREE RADIAL ARTERY GRAFT TO THE PDA BRANCH OF RCA: This graft is widely patent in its origin, course, insertion site, and opacified PDA, has minor irregularities. No significant disease. It fills a portion of the PLV branch as well. FINAL IMPRESSION: This patient has mildly elevated filling pressures. No gradient. He has a right- dominant system. Total occlusion of lower brule RCA, left main now has a 70% to 75% stenosis. Mid LAD is totally occluded. Diagonal that was stented is patent. Circumflex at the origin is patent. Within the stent there is a 70% to 80% narrowing. The vein graft to the PLV branch of RCA is totally occluded. The free radial artery graft to the RPDA is patent with good flow. WHITE to LAD is patent, but within the LAD there is diffuse disease with a maximum 70% narrowing. RECOMMENDATIONS: I reviewed the angiograms. I gave patient the maximum amount of dye, given his kidney dysfunction. I will not do intervention today, but I will bring him back and perform repeat intervention of his left main circumflex vessel, and this will be performed with Impella support, given his low ejection fraction and lower brule LAD also having significant disease even though it has a bypass. The risk is high. This was explained to the patient. I will discharge him on medical therapy and see him in the office. Discussed different options. Surgical options are not very good for this patient. I will perform percutaneous intervention of distal left main, proximal circumflex marginal which is a restenotic lesion with an Impella support. Discussed with the patient at length. He will be discharged the next day or two. MMODL / IJN: [id number] /
[2021-08-11] MEDS ORDERED: ATORVASTATIN 80 MG TAB PO SCH (21:00)
[2021-08-11] MEDS ORDERED: ENOXAPARIN 60 MG/0.6 ML SYRINGE SQ ONE (21:00)
[2021-08-11] MEDS ORDERED: TAMSULOSIN 0.4 MG CAP.ER.24H PO SCH (21:00)
[2021-08-12] MEDS: NITROGLYCERIN OINT 1 INCH/GM PACKET TOPICAL SCH ×3 (00:35→12:11)
[2021-08-12] MEDS ORDERED: DEXTROSE 5% IN WATER 100 ML with AMIODARONE 150 MG IV ONE (01:15)
[2021-08-12] MEDS ORDERED: AMIODARONE 360 MG in DEXTROSE 5% IN WATER 200 ML IV ONE ×2 (01:30)
[2021-08-12] MEDS: SODIUM CHLORIDE 0.9% 1,000 ML IV SCH ×3 (06:18→06:45)
[2021-08-12] MEDS ORDERED: AMIODARONE 450 MG in DEXTROSE 5% IN WATER 250 ML IV SCH ×2 (06:30)
[2021-08-12] MEDS ORDERED: HEPARIN SODIUM,PORCINE 10,000 UNIT in SODIUM CHLORIDE 0.9% 1,000 ML IRRIGATION PRN (07:00)
[2021-08-12] MEDS ORDERED: HEPARIN SODIUM,PORCINE 2,500 UNIT in SODIUM CHLORIDE 0.9% 250 ML IRRIGATION PRN (07:00)
[2021-08-12] MEDS ORDERED: PANTOPRAZOLE 40 MG TABLET PO SCH (07:30)
[2021-08-12 08:59] VITALS: TEMP 98
[2021-08-12] MEDS: FUROSEMIDE 40 MG TAB PO SCH (08:59)
[2021-08-12] MEDS: CLOPIDOGREL 75 MG TAB PO SCH (08:59)
[2021-08-12] MEDS: DULoxetine HCL 60 MG CAPSULE.DR PO SCH (08:59)
[2021-08-12] MEDS: SPIRONOLACTONE 25 MG TAB PO SCH (08:59)
[2021-08-12] MEDS ORDERED: carvediloL 12.5 MG TAB PO SCH (09:00)
[2021-08-12] MEDS ORDERED: lisinopriL 5 MG TAB PO SCH (09:00)
[2021-08-12] MEDS ORDERED: HEPARIN SODIUM,PORCINE/PF 5,000 UNIT/0.5 ML SYRINGE SQ SCH (09:00)
[2021-08-12] MEDS ORDERED: AMIODARONE 200 MG TAB PO SCH (09:00)
[2021-08-12] MEDS: MORPHINE SULFATE 4 MG/ML SYRINGE IV PRN (09:00)
[2021-08-12] MEDS: ASPIRIN 81 MG PO SCH (09:00)
[2021-08-12 09:41] LABS: Basophils % (A) 0 %; Eosinophils % (A) 0 %; HCT 33.3 % (39.0-53.0); HGB 10.8 gm/dL (13.0-17.5); Hypochromasia Slight; Lymphocytes # (A) 1.3 k/uL (1.0-4.8); Lymphocytes % (A) 13 %; MCH 32.7 pg (25.0-35.0); MCHC 32.4 g/dL (31.0-37.0); MCV 100.9 fL (80.0-100.0); Macrocytosis Slight; Mean Platelet Volume 10.5; Monocytes # (A) 0.7 k/uL (0-1.0); Monocytes % (A) 7 %; Neutrophils # (A) 8.1 k/uL (1.3-7.7); Neutrophils % (A) 78 %; Platelet Count 132 k/uL (150-450); RDW 13.8 % (11.5-15.5); WBC 10.4 k/uL (3.8-10.6)
[2021-08-12 09:53] LABS: Calcium 8.1 mg/dL (8.4-10.2)
[2021-08-12 12:37] VITALS: BP 121/66; PULSE 80
--- NOTE | 2021-08-12 13:23 | P.PN ---
<Nirali Esposito - Last Filed: 08/12/21 13:25> Subjective Progress Note Date: 08/12/21 HISTORY OF PRESENT ILLNESS: This is a 75-year-old male with a past medical history significant for ischemic cardiomyopathy, coronary artery disease with previous PCI and CABG, hypertension, hyperlipidemia, former nicotine dependence, and BiV ICD implantation. Patient follows in the office with Dr. Chisholm. We have been asked to see the patient in consultation for chest pain. Patient examined at the bedside. Patient states he has been having chest pain for approximately the last week. He reports the pain goes across his entire chest and feels like a burning sensation. The patient did have an episode of chest pain again this morning and received sublingual nitro. At the time of my examination, the pat ient denies chest pain or pressure. * EKG reveals sinus mechanism * Chest xray no active cardiopulmonary disease. No change. * Laboratory data: WBC 5.9. Hemoglobin 11.4. Platelet count 139. Sodium 135. Potassium 4.3. BUN 15. Creatinine 1.70. Troponin 4.0. 3.150. 2.780. * Current home cardiac medications include lisinopril 10 mg twice a day, carvedilol 6.25 mg twice a day, spironolactone 25 mg daily, Lasix 40 mg daily, Plavix 75 mg daily, Lipitor 80 mg at night, aspirin 81 mg daily * Echocardiogram completed revealing ejection fraction 30-35%, inferior lateral hypokinesis, moderate aortic regurgitation, mild MR, mild TR, moderate pulmonary hypertension * Cardiac catheterization history: December 2019. Impella assisted PCI. Patient underwent angioplasty and stenting of major diagonal branch with a drug- eluting stent. 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 He also underwent angioplasty and stenting of mid left anterior descending coronary artery with a drug-eluting stent. 08/12/2021 Patient underwent cardiac catheterization yesterday with Dr. Chisholm. No intervention was performed at that time. The plan is to bring in the patient back and have impella assisted PCI. Patient has been having nonsustained VT. He denies CP or SOB. PHYSICAL EXAM: VITAL SIGNS: Reviewed. GENERAL: Well-developed in no acute distress. HEENT: Head is normocephalic. Pupils are equal, round. Sclerae anicteric. Mucous membranes of the mouth are moist. Neck supple. No JVD or thyromegaly LUNGS: Respirations even and unlabored. Lungs essentially clear to auscultation bilaterally. HEART: Regular rate and rhythm. S1 and S2 heard. ABDOMEN: Soft. Nondistended. Nontender. EXTREMITIES: Normal range of motion. No clubbing or cyanosis. Peripheral pulses intact. No lower extremity edema NEUROLOGIC: Awake and alert. Oriented x 3. ASSESSMENT: Chest pain Non-STEMI Coronary artery disease with previous CABG and PCI Ischemic cardiomyopathy Nonsustained VT History of ventricular tachycardia History of biventricular AICD implantation Hypertension Hyperlipidemia Former nicotine dependence PLAN: Continue current cardiac medications Increase carvedilol to 12.5 mg twice a day Discontinue IV amiodarone Begin oral amiodarone 200 mg daily Decrease lisinopril to 5 mg daily Patient may be discharged home today and follow up with Dr. Chisholm on 08/15/21 He will be scheduled for PCI with impella support by Dr. Chisholm Further recommendations pending patient course Nurse practitioner note has been reviewed by physician. Signing provider agrees with the documented findings, assessment, and plan of care. Objective - Vital Signs Vital signs: Vital Signs Temp 98.0 F 08/12/21 08:00 Pulse 80 08/12/21 12:00 Resp 18 08/12/21 12:00 BP 121/66 08/12/21 12:00 Pulse Ox 96 08/12/21 12:00 Intake & Output 08/11/21 08/12/21 08/12/21 18:59 06:59 18:59 Intake Total 50 10 118 Output Total 200 Balance 50 -190 118 Weight 65.771 kg Intake: IV 50 10 Invasive Line 3 10 Oral 118 Output: Urine 200 Other: Voiding Method Urinal Urinal Urinal # Voids 1 1 1 - Labs CBC & Chem 7: 08/12/21 09:03 08/12/21 09:03 Labs: Abnormal Lab Results - Last 24 Hours (Table) 08/12/21 08/12/21 Range/Units 09:03 09:03 RBC 3.30 L (4.30-5.90) m/uL Hgb 10.8 L (13.0-17.5) gm/dL Hct 33.3 L (39.0-53.0) % MCV 100.9 H (80.0-100.0) fL Plt Count 132 L (150-450) k/uL Neutrophils # 8.1 H (1.3-7.7) k/uL Sodium 132 L (137-145) mmol/L Chloride 111 H (98-107) mmol/L Carbon Dioxide 16 L (22-30) mmol/L BUN 22 H (9-20) mg/dL Creatinine 1.55 H (0.66-1.25) mg/dL Calcium 8.1 L (8.4-10.2) mg/dL <Hunter Perez - Last Filed: 08/12/21 14:11> Subjective Patient interviewed and examined by me. Data reviewed. Impression and plan formulated by me and discussed with nurse practitioner Nurse practitioner transcribed note on my behalf Objective - Vital Signs Vital signs: Vital Signs Temp 98.0 F 08/12/21 08:00 Pulse 80 08/12/21 12:00 Resp 18 08/12/21 12:00 BP 121/66 08/12/21 12:00 Pulse Ox 96 08/12/21 12:00 Intake & Output 08/11/21 08/12/21 08/12/21 18:59 06:59 18:59 Intake Total 50 10 236 Output Total 200 Balance 50 -190 236 Weight 65.771 kg Intake: IV 50 10 Invasive Line 3 10 Oral 236 Output: Urine 200 Other: Voiding Method Urinal Urinal Urinal # Voids 1 1 2 # Bowel Movements 1 - Labs CBC & Chem 7: 08/12/21 09:03 08/12/21 09:03 Labs: Abnormal Lab Results - Last 24 Hours (Table) 08/12/21 08/12/21 Range/Units 09:03 09:03 RBC 3.30 L (4.30-5.90) m/uL Hgb 10.8 L (13.0-17.5) gm/dL Hct 33.3 L (39.0-53.0) % MCV 100.9 H (80.0-100.0) fL Plt Count 132 L (150-450) k/uL Neutrophils # 8.1 H (1.3-7.7) k/uL Sodium 132 L (137-145) mmol/L Chloride 111 H (98-107) mmol/L Carbon Dioxide 16 L (22-30) mmol/L BUN 22 H (9-20) mg/dL Creatinine 1.55 H (0.66-1.25) mg/dL Calcium 8.1 L (8.4-10.2) mg/dL
--- NOTE | 2021-08-12 13:54 | P.DS ---
Providers Date of admission: 08/11/21 01:41 Expected date of discharge: 08/12/21 Attending physician: Ame Eastman Consults: 08/11/21 01:42 Consult Physician Routine Consulting Provider: [facility] Consult Reason/Comments: NSTEMI Do you want consulting provider notified?: Already Contacted 08/11/21 17:48 Consult Physician Urgent Consulting Provider: Rogelio Wilkinson Consult Reason/Comments: Difficulty swallowing Do you want consulting provider notified?: Yes 08/11/21 17:49 Consult Physician Urgent Consulting Provider: Alana Sexton Consult Reason/Comments: Difficulty swallowing Do you want consulting provider notified?: Yes [facility]: HISTORY OF PRESENT ILLNESS This is a 76-year-old male patient of Dr. Hassan with past medical history of hypertension, coronary artery disease status post CABG in 2001, ischemic cardiomyopathy with biventricular ICD implantation, hyperlipidemia, hiatal hernia status post Ramona fundoplication, patient complains of chest pain that goes into his back but denies any radiation into his arm or neck. Complains of a burning sensation, no nausea or vomiting, no lightheadedness or dizziness. Patient does complain of difficulty swallowing that has been going on for 1 week and feeling the pills are getting stuck in his throat. He also states he has lost 10 pounds over the past week. At the time of evaluation, patient is having chest pain and Nitropaste added. Patient presented to [facility] emergency center. EKG sinus rhythm. Chest x-ray shows no acute cardio pulmonary disease. WBC 5.9, hemoglobin 11.4, platelet count 139. Sodium 135, potassium 4.3, BUN 15 creatinine 1.7. Troponins 4.0, 3.150, 2.780. Echocardiogram reveals EF 30-35%, moderate aortic regurgitation, mild mitral regurgitation, mild tricuspid regurgitation, moderate pulmonary hypertension. Patient is seen today on the cardiac stepdown unit. Patient has been seen by cardiology with plan for cardiac catheterization this afternoon. 08/12: Patient states that he is feeling a little sore today. He underwent heart catheterization yesterday with Dr. BETI Chisholm finding total occlusion of the [place] RCA, left main 70-75% stenosis, mid LAD totally occluded. Diagonal was stented and patent, circumflex at the origin is patent. Within the stent there is 70-80% narrowing. Finger to the PLV branch of the RCA is totally occluded. Free radial artery graft to the RPDA is patent with good flow. WHITE to LAD patent. LAD is diffuse disease with a maximum 70% narrowing. Plan is to bring the patient back for in [place] assisted PCI at a later time. Patient has been having nonsustained ventricular tachycardia. IV amiodarone was discontinued and transitioned to oral and Coreg increased to 12.5 mg twice daily. Patient is cleared from cardiology for discharge home. Patient will be discharged today in stable condition. DISCHARGE DIAGNOSES 1. Non-ST elevated myocardial infarction. 2. History of coronary artery disease with previous CABG and PCI. 3. Ischemic cardiomyopathy status post AICD implantation. 4. History of ventricular tachycardia. 5. Hypertension. 6. Hyperlipidemia. 7. Remote history of tobacco use. 8. History of Ramona fundal location. 9. Difficulty swallowing pills with recent palate surgery. 10. Benign prostatic hypertrophy. DISCHARGE PLAN Home Greater than 35 minutes was utilized and coordinating patient's discharge. Impression and plan of care have been directed as dictated by the signing physician. April Taylor nurse practitioner acting as scribe for signing physician. Patient Condition at Discharge: Stable Plan - Discharge Summary Discharge Rx Participant: No New Discharge Prescriptions: New Amiodarone [Cordarone] 200 mg PO DAILY #90 tab lisinopriL [Zestril] 5 mg PO DAILY #90 tab carvediloL [Coreg*] 12.5 mg PO BID-W/MEALS #180 tab Continue Aspirin 81 mg PO DAILY chew Furosemide [Lasix] 40 mg PO DAILY #30 tab Nitroglycerin Sl Tabs [Nitrostat] 0.4 mg SUBLINGUAL Q5M PRN #25 tab PRN Reason: Chest Pain Clopidogrel [Plavix] 75 mg PO DAILY #30 tab Prevagen 1 tab PO DAILY Spironolactone [Aldactone] 25 mg PO DAILY Vit C/E/Zn/Coppr/Lutein/Zeaxan [Preservision Areds 2 Softgel] 1 tab PO DAILY Tamsulosin [Flomax] 0.4 mg PO HS L.acidoph,Paracasei, B.lactis [Probiotic] 1 cap PO DAILY PRN PRN Reason: GI UPSET Potassium Citrate [Urocit-K] 10 meq PO BID ALPRAZolam [Xanax] 0.25 mg PO TID PRN #9 tab PRN Reason: Anxiety Z Quil 2 tab PO HS Acetaminophen [Tylenol 8 Hour] 650 mg PO Q8H PRN PRN Reason: Pain Atorvastatin [Lipitor] 80 mg PO HS Ubidecarenone [Co Q-10] 100 mg PO DAILY oxyCODONE-APAP 10-325MG [Percocet 10-325 mg] 1 tab PO Q6H PRN PRN Reason: Pain Morphine Sulfate ER [Ms Contin] 15 mg PO HS DULoxetine HCL [Cymbalta] 60 mg PO DAILY Discontinued carvediloL [Coreg] 6.25 mg PO BID #180 tablet lisinopriL 10 mg PO BID Discharge Medication List Aspirin 81 mg PO DAILY chew 10/26/19 [Rx] Clopidogrel [Plavix] 75 mg PO DAILY #30 tab 10/26/19 [Rx] Furosemide [Lasix] 40 mg PO DAILY #30 tab 10/26/19 [Rx] Nitroglycerin Sl Tabs [Nitrostat] 0.4 mg SUBLINGUAL Q5M PRN #25 tab 10/26/19 [Rx] Prevagen 1 tab PO DAILY 12/08/19 [History] Spironolactone [Aldactone] 25 mg PO DAILY 12/08/19 [History] Vit C/E/Zn/Coppr/Lutein/Zeaxan [Preservision Areds 2 Softgel] 1 tab PO DAILY 12/08/19 [History] Tamsulosin [Flomax] 0.4 mg PO HS 02/16/20 [History] Acetaminophen [Tylenol 8 Hour] 650 mg PO Q8H PRN 08/10/21 [History] Atorvastatin [Lipitor] 80 mg PO HS 08/10/21 [History] DULoxetine HCL [Cymbalta] 60 mg PO DAILY 08/10/21 [History] L.acidoph,Paracasei, B.lactis [Probiotic] 1 cap PO DAILY PRN 08/10/21 [History] Morphine Sulfate ER [Ms Contin] 15 mg PO HS 08/10/21 [History] Potassium Citrate [Urocit-K] 10 meq PO BID 08/10/21 [History] Ubidecarenone [Co Q-10] 100 mg PO DAILY 08/10/21 [History] Z Quil 2 tab PO HS 08/10/21 [History] oxyCODONE-APAP 10-325MG [Percocet 10-325 mg] 1 tab PO Q6H PRN 08/10/21 [History] ALPRAZolam [Xanax] 0.25 mg PO TID PRN #9 tab 08/12/21 [Rx] Amiodarone [Cordarone] 200 mg PO DAILY #90 tab 08/12/21 [Rx] carvediloL [Coreg*] 12.5 mg PO BID-W/MEALS #180 tab 08/12/21 [Rx] lisinopriL [Zestril] 5 mg PO DAILY #90 tab 08/12/21 [Rx] Follow up Appointment(s)/Referral(s): Sanchez Chisholm MD [STAFF PHYSICIAN] - 08/15/21 11:30 am Cong Hassan DO [Primary Care Provider] - 1 Week (OFFICE WILL CALL YOU WITH APPT TIME) Patient Instructions/Handouts: *Surgery [facility] - After Heart Catheterization - Icer Machine Instructions, Heart Attack (GEN) Activity/Diet/Wound Care/Special Instructions: DO NOT TAKE A BATH, YOU MAY SHOWER AND GENTLY CLEANSE AROUND PUNCTURE SITE AVOID REPEATEDLY BENDING AT HIPS AVOID STAIRS MUCH POSSIBLE APPLY GENTLE PRESSURE WHEN SNEEZING, LAUGHING OR STRAINING TO HAVE A BM Discharge Disposition: HOME SELF-CARE
--- NOTE | 2021-08-12 15:17 | P.CONS ---
History of Present Illness - Reason for Consult Consult date: 08/12/21 Difficulty swallowing Requesting physician: Augustina Best - Chief Complaint Chest pain - History of Present Illness This is a 76-year-old male who presented to the emergency department 2 days ago with complaints of chest pain and left-sided flank pain. He has a past medical history of coronary artery disease status post AICD, CABG, stenting, COPD, hyperlipidemia hypertension and fibromyalgia. Yesterday he was seen by cardiology and underwent a cardiac catheterization, with recommendations to continue medical management and follow up outpatient to be scheduled for PCI Impala support by Dr. Chisholm. He also had complaint of some difficulty with swallowing over the last 1 week duration. States that he had increased phlegm production and difficulty with swallowing solids. However he does state that he recently underwent sinus and palate surgery and believes it was related to that area including swelling. He states the swelling has gone down he had no difficu lty eating his breakfast today or swallowing a couple of pills. He denies any pain with swallowing. Denies any previous history of strictures, EGD, or peptic ulcer disease. Review of Systems REVIEW OF SYSTEMS: CARDIOPULMONARY: No chest pain or shortness of breath. Gastrointestinal: No abdominal pain, left flank pain. Some difficulty with swallowing and increased phlegm production which has resolved. No nausea or vomiting. No hematemesis, coffee-ground emesis. No rectal bleeding, or melena. GENITOURINARY: No dysuria or hematuria. MUSCULOSKELETAL: Reports normal range of motion., Joint pain. SKIN: No rashes. No jaundice. ENDOCRINE: No chills, fevers. No excessive weight gain or loss. No polydipsia or polyuria. PSYCHIATRIC: Unremarkable. NEUROLOGY: No change in mental status. Denies dizziness, headache. ENT: Vision unremarkable. CONSTITUTIONAL: No recent weight loss. No fever, chills, night sweats. Past Medical History Past Medical History: Coronary Artery Disease (CAD), Chest Pain / Angina, COPD, Hyperlipidemia, Hypertension, Myocardial Infarction (RI), Musculoskeletal Disorder, Osteoarthritis (OA), Prostate Disorder, Sleep Apnea/CPAP/BIPAP Additional Past Medical History / Comment(s): states incision from AICD healing, CABG, HH, fibromyalgia, anemia, hypogonadism, vtach, NSTEMI 10/20/19, CPAP use, Inogen portable. Kidney stone pain occ currently; left flank pain, chronic toni shoulder pain, states has numbness rt arm Last Myocardial Infarction Date:: 10/20/19 History of Any Multi-Drug Resistant Organisms: None Reported Past Surgical History: Adenoidectomy, AICD, Back Surgery, Cholecystectomy, Coronary Bypass/CABG, Heart Catheterization, Hernia Repair, Orthopedic Surgery, Tonsillectomy Additional Past Surgical History / Comment(s): CABG x3 in 1999, rhinoplasty, ACDF 2, left bunionectomy, Lasik, lipoma from left shoulder 2, colonoscopy 5 years ago, hernia repair. Past Anesthesia/Blood Transfusion Reactions: No Reported Reaction Type of Cardiac Device: AICD Device Placement Date:: 12/11/29 Past Psychological History: No Psychological Hx Reported Smoking Status: Former smoker Past Alcohol Use History: None Reported Additional Past Alcohol Use History / Comment(s): Quit smoking 1985, smoked 2ppd from age 14 Past Drug Use History: None Reported - Past Family History Mother Family Medical History: Cancer, Coronary Artery Disease (CAD) Father Family Medical History: Cancer Brother(s) Family Medical History: Congestive Heart Failure (CHF), Coronary Artery Disease (CAD) Sister(s) Family Medical History: Congestive Heart Failure (CHF) Medications and Allergies Home Medications Medication Instructions Recorded Confirmed Type Aspirin 81 mg PO DAILY chew 10/26/19 08/10/21 Rx Clopidogrel [Plavix] 75 mg PO DAILY #30 tab 10/26/19 08/10/21 Rx Furosemide [Lasix] 40 mg PO DAILY #30 tab 10/26/19 08/10/21 Rx Nitroglycerin Sl Tabs [Nitrostat] 0.4 mg SUBLINGUAL Q5M PRN #25 tab 10/26/19 08/10/21 Rx Prevagen 1 tab PO DAILY 12/08/19 08/10/21 History Spironolactone [Aldactone] 25 mg PO DAILY 12/08/19 08/10/21 History Vit C/E/Zn/Coppr/Lutein/Zeaxan 1 tab PO DAILY 12/08/19 08/10/21 History [Preservision Areds 2 Softgel] Tamsulosin [Flomax] 0.4 mg PO HS 02/16/20 08/10/21 History Acetaminophen [Tylenol 8 Hour] 650 mg PO Q8H PRN 08/10/21 08/10/21 History Atorvastatin [Lipitor] 80 mg PO HS 08/10/21 08/10/21 History DULoxetine HCL [Cymbalta] 60 mg PO DAILY 08/10/21 08/10/21 History L.acidoph,Paracasei, B.lactis 1 cap PO DAILY PRN 08/10/21 08/10/21 History [Probiotic] Morphine Sulfate ER [Ms Contin] 15 mg PO HS 08/10/21 08/10/21 History Potassium Citrate [Urocit-K] 10 meq PO BID 08/10/21 08/10/21 History Ubidecarenone [Co Q-10] 100 mg PO DAILY 08/10/21 08/10/21 History Z Quil 2 tab PO HS 08/10/21 08/10/21 History oxyCODONE-APAP 10-325MG [Percocet 1 tab PO Q6H PRN 08/10/21 08/10/21 History 10-325 mg] ALPRAZolam [Xanax] 0.25 mg PO TID PRN #9 tab 08/12/21 Rx Amiodarone [Cordarone] 200 mg PO DAILY #90 tab 08/12/21 Rx carvediloL [Coreg*] 12.5 mg PO BID-W/MEALS #180 tab 08/12/21 Rx lisinopriL [Zestril] 5 mg PO DAILY #90 tab 08/12/21 Rx Allergies Allergy/AdvReac Type Severity Reaction Status Date / Time Iodinated Contrast Media AdvReac Unknown Verified 08/11/21 00:48 Physical Exam Vitals: Vital Signs Temp Pulse Resp BP Pulse Ox 08/12/21 08:00 98.0 F 73 18 113/63 91 L 08/12/21 04:00 98.1 F 73 18 108/58 93 L 08/12/21 00:00 98.1 F 80 18 131/59 96 08/11/21 20:00 98.0 F 85 18 132/74 94 L 08/11/21 18:23 75 18 150/70 97 08/11/21 17:59 76 18 147/76 97 08/11/21 17:44 78 18 151/77 97 08/11/21 17:29 78 18 132/71 97 08/11/21 17:14 75 18 149/75 97 08/11/21 16:00 98.0 F 74 18 135/76 99 08/11/21 14:00 100 18 08/11/21 12:00 98.2 F 100 18 145/88 98 Intake and Output 08/11/21 08/12/21 08/12/21 22:59 06:59 14:59 Intake Total 60 118 Output Total 200 Balance -140 118 Intake: IV 60 Invasive Line 3 10 Oral 118 Output: Urine 200 Other: Voiding Method Urinal Urinal # Voids 1 1 General appearance: The patient is alert, oriented, appears in no acute distress. HET: Head is normocephalic and atraumatic. Conjunctiva pink. Sclera anicteric. Neck: Supple without lymphadenopathy. Trachea midline. Heart: S1 S2. Regular rate and rhythm. Lungs: Clear to auscultation. Abdomen: Soft, nontender, nondistended with bowel sounds. No guarding or rigidity. Skin: No rashes. No jaundice. Extremities: Normal skin color and turgor. No pedal edema. Neurological: No focal deficits. Alert and oriented x3. Results CBC & Chem 7: 08/12/21 09:03 08/12/21 09:03 Comments: CT abdomen and pelvis shows arthrosclerotic vascular disease. 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 Dilated biliary tree slightly increased compared to old exam. Renal atrophy. Renal cortical cyst. No obstruction. Chronic distal common bile duct obstruction is possible. There is small amount of low-density free fluid in the pelvis which is new compared to old exam Assessment and Plan (1) Dysphagia Narrative/Plan: 76-year-old male who came in with chest pains and left flank pain was diagnosed with an STEMI and taken for cardiac catheterization. He has been cleared by cardiology to be discharged with medical management with outpatient follow-up with PCI and and patella. Patient also had some complaints yesterday with diffi culty swallowing solids. States this has been occurred for the last 1 week duration. He underwent palate and sinus surgery approximately 2-3 weeks ago and states he notices following. He states he believes now that it is related to swelling which has improved. States he breakfast this morning and took a couple of medications at once. Had no difficulty with swallowing. No pain with swallowing. Likely difficulty swallowing was related to swelling in the throat and possible nasal cavity which has improved status post surgery. No plan for an endoscopic evaluation. Current Visit: Yes Status: Acute Code(s): R13.10 - DYSPHAGIA, UNSPECIFIED SNOMED Code(s): 14112393 Plan: 1. Continue symptomatic and supportive care 2. Diet as tolerated 3. No plans on endoscopic evaluation difficulty swallowing was likely related to postsurgical swelling which has resolved Thank you for this consultation we will continue to follow. Dr. Elijah Sexton I agree with the dictator's note, documented as a scribe by Sada Ziegler.
== END 2021-08-12 15:36 | disposition home or self-care (01) | DRG 281 ==
LOC: EC 20:11 → 3SCARD 08-11 01:41
PROVIDERS: ADMIT Family Medicine; ATTEND Family Medicine
PROC: B2131ZZ Fluoroscopy of Multiple Coronary Artery Bypass Grafts using Low Osmolar Contrast (ICD-10-PCS; 2021-08-11)
PROC: B2111ZZ Fluoroscopy of Multiple Coronary Arteries using Low Osmolar Contrast (ICD-10-PCS; 2021-08-11)
PROC: B2181ZZ Fluoroscopy of Left Internal Mammary Bypass Graft using Low Osmolar Contrast (ICD-10-PCS; 2021-08-11)
PROC: B2151ZZ Fluoroscopy of Left Heart using Low Osmolar Contrast (ICD-10-PCS; 2021-08-11)
PROC: 4A023N7 Measurement of Cardiac Sampling and Pressure, Left Heart, Percutaneous Approach (ICD-10-PCS; principal; 2021-08-11 15:50)
DX: I21.4 Non-ST elevation (NSTEMI) myocardial infarction (principal); I47.2 Ventricular tachycardia; I25.810 Atherosclerosis of coronary artery bypass graft(s) without angina pectoris; I12.9 Hypertensive chronic kidney disease with stage 1 through stage 4 chronic kidney disease, or unspecified chronic kidney disease; N18.9 Chronic kidney disease, unspecified; E78.5 Hyperlipidemia, unspecified; E86.0 Dehydration; I25.10 Atherosclerotic heart disease of native coronary artery without angina pectoris; I25.5 Ischemic cardiomyopathy; I25.82 Chronic total occlusion of coronary artery; I27.20 Pulmonary hypertension, unspecified; I35.1 Nonrheumatic aortic (valve) insufficiency; M79.7 Fibromyalgia; G89.29 Other chronic pain; M25.512 Pain in left shoulder; M25.511 Pain in right shoulder; I71.4 Abdominal aortic aneurysm, without rupture; J44.9 Chronic obstructive pulmonary disease, unspecified; N28.1 Cyst of kidney, acquired; N40.0 Benign prostatic hyperplasia without lower urinary tract symptoms; R13.10 Dysphagia, unspecified; I25.2 Old myocardial infarction; Z95.5 Presence of coronary angioplasty implant and graft; Z95.810 Presence of automatic (implantable) cardiac defibrillator; Z95.1 Presence of aortocoronary bypass graft; Z79.02 Long term (current) use of antithrombotics/antiplatelets; Z79.82 Long term (current) use of aspirin; Z79.899 Other long term (current) drug therapy; Z86.79 Personal history of other diseases of the circulatory system; Z87.442 Personal history of urinary calculi; Z87.891 Personal history of nicotine dependence; Z91.041 Radiographic dye allergy status; Z98.890 Other specified postprocedural states; Z80.0 Family history of malignant neoplasm of digestive organs; Z82.49 Family history of ischemic heart disease and other diseases of the circulatory system
CPT/HCPCS: 36415; 71046; 74018; 74177; 76770; 80048; 80053; 81003; 82150; 83690; 83735; 84484; 85025; 85610; 85730; 93005; 93306; 93459; 96361; 96365; 96375; 96376; 99291

== ENCOUNTER → 2021-08-19 | Outpatient (CLI) | payer MEDICARE ==
[2021-08-19 15:14] LABS: HCT 37.4 % (39.0-53.0); Hypochromasia Slight; MCH 31.7 pg (25.0-35.0); MCHC 32.1 g/dL (31.0-37.0); MCV 98.8 fL (80.0-100.0); Mean Platelet Volume 9.5; Platelet Count 224 k/uL (150-450); RBC 3.78 m/uL (4.30-5.90); RDW 13.8 % (11.5-15.5); WBC 6.9 k/uL (3.8-10.6)
[2021-08-20 07:06] LABS: African American GFR (CKD) 49.3 (60.0-200.0); Anion Gap 19.5 mmol/L (10.00-18.00); BUN/Creat Ratio 9.1 Ratio (12.00-20.00); Blood Urea Nitrogen 14.1 mg/dL (9.0-27.0); Calcium 9.5 mg/dL (8.7-10.3); Carbon Dioxide 14.9 mmol/L (20.0-27.5); Non-African American GFR(CKD) 42.6 (60.0-200.0); Potassium 5.2 mmol/L (3.5-5.5)
== END | disposition home or self-care (01) ==
LOC: LABWHC1 14:08
PROVIDERS: ATTEND Internal Medicine Interventional Cardiology
DX: I71.2 Thoracic aortic aneurysm, without rupture (principal); I25.10 Atherosclerotic heart disease of native coronary artery without angina pectoris
CPT/HCPCS: 36415; 80048; 85027

== ENCOUNTER 2021-08-21 07:57 | Inpatient (IN) | payer MEDICARE ==
[~2021-08-21 07:57] MED LIST changes: +ALPRAZolam 0.25 MG TAB PO PRN; +ALPRAZolam 0.5 MG TAB PO PRN; +ASPIRIN 325 MG TAB PO STA; +ATORVASTATIN 80 MG TAB PO STA; +HEPARIN SODIUM,PORCINE 10,000 UNIT in SODIUM CHLORIDE 0.9% 1,000 ML IRRIGATION PRN; +HEPARIN SODIUM,PORCINE 2,500 UNIT in SODIUM CHLORIDE 0.9% 250 ML IRRIGATION PRN; +NITROGLYCERIN SL TABS 0.4 MG TAB SUBLINGUAL PRN; -SODIUM CHLORIDE 0.9% 1,000 ML IV SCH
[2021-08-21] MEDS: SODIUM CHLORIDE 0.9% 1,000 ML in EMPTY BAG 1 BAG IV SCH ×12 (08:25→17:13)
[2021-08-21] MEDS ORDERED: LIDOCAINE 1% INJ 10MG/ML (20 ML MDV) ONE (12:40)
[2021-08-21] MEDS ORDERED: VERAPAMIL 2.5 MG/ML 2 ML AMP ONE (12:40)
[2021-08-21] MEDS ORDERED: HEPARIN SODIUM 1,000 UN/ML (10ML VL) ONE (13:05)
[2021-08-21] MEDS ORDERED: MIDAZOLAM 2 MG/2 ML VIAL IV ONE (13:21)
[2021-08-21] MEDS ORDERED: LIDOCAINE 1% INJ 10MG/ML (20 ML MDV) SQ ONE (13:22)
[2021-08-21] MEDS ORDERED: fentaNYL (PF) 50 MCG/ML 2 ML AMP ONE (13:36)
[2021-08-21] MEDS: fentaNYL (PF) 50 MCG/ML 2 ML AMP IV ONE ×2 (13:38→15:06)
[2021-08-21] MEDS: HEPARIN SODIUM 1,000 UN/ML (10ML VL) IV ONE ×4 (13:41→14:44)
[2021-08-21] MEDS ORDERED: IOPAMIDOL-370 100ML BTL INJ ONE ×2 (14:32→15:17)
[2021-08-21] MEDS ORDERED: NITROGLYCERIN 1000MCG/10ML SYRINGE INTRACORON ONE (15:10)
[2021-08-21] MEDS ORDERED: HYDROmorphone 0.5 MG/0.5 ML SYRINGE IVP ONE (15:16)
[2021-08-21] MEDS ORDERED: FUROSEMIDE 10 MG/ML 4 ML VIAL ONE (15:24)
[2021-08-21] MEDS ORDERED: CLOPIDOGREL 75 MG TAB ONE (15:25)
[2021-08-21] MEDS ORDERED: CLOPIDOGREL 75 MG TAB PO ONE (15:28)
[2021-08-21] MEDS ORDERED: FUROSEMIDE 10 MG/ML 4 ML VIAL IV ONE (15:28)
[2021-08-21] MEDS ORDERED: NITROGLYCERIN SL TABS 0.4 MG TAB SUBLINGUAL PRN ×2 (15:30→15:34)
[2021-08-21] MEDS ORDERED: RX INFO: IV CONTRAST WAS GIVEN 1 EACH MISC MISCELLANE PRN (15:30)
[2021-08-21] MEDS ORDERED: MAG HYDROX/AL HYDROX/SIMETH 30 ML CUP PO PRN (15:30)
[2021-08-21] MEDS ORDERED: ZOLPIDEM 5 MG TAB PO PRN (15:30)
[2021-08-21] MEDS ORDERED: ATROPINE SULFATE 0.1 MG/ML 10ML SYRINGE IV PRN (15:30)
[2021-08-21] MEDS ORDERED: LACTOBACILLUS ACIDOPH & BULGAR 1 EACH PACKET PO PRN (15:34)
[2021-08-21 16:05] LABS: Glucose,Whole Blood 85 mg/dL (75-99)
--- NOTE | 2021-08-21 16:26 | PTCA ---
PERCUTANEOUSTRANS CORORONARY ANGIOGRAPHY DATE OF SERVICE: 08/21/2021. PROCEDURE: Impella supported single access PCI of the left main and circumflex marginal coronary arteries with drug-eluting stents. PERFORMED BY: Dr. Mandie Chisholm. SEDATION: Moderate conscious sedation time was 115 minutes. Patient was administered Versed. Oxygen saturation, hemodynamics and EKG were monitored closely. He also received some fentanyl and Dilaudid. CLINICAL INFORMATION: Mr. Trino Brandt is a 76-year-old gentleman, history of previous aortocoronary bypass surgery and also PCI. He had a PCI of the major diagonal, HOBBING MACHINE OPERATOR of the circumflex as well as mid LAD performed in December 2019 with Impella support. Because of increasing symptoms of angina, I performed a cardiac cath last week, which revealed that the mid LAD was occluded, became a chronic total occlusion. Diagonal was patent. Circumflex has restenosis of 95%. The left main developed a 75% stenosis. His LAD is perfused by WHITE, but the perfusion is inadequate because there is diffuse disease in the kaw LAD. He was advised a NATIONAL SALES EXECUTIVE support intervention. Ejection fraction is about 35%. Risks, benefits, options, rationale were explained to the patient as well as his . PROCEDURE NOTE: Under local anesthesia and strict aseptic precautions a 6-[place] introducer placed in the right femoral artery. A micropuncture needle technique was used. I then placed a 6-[place] introducer. I then reclosed this incision with a 2 8 [place] Perclose devices in 10 o'clock and 2 o'clock positions. I then advanced over a wire, an 8-[place] introducer and a 10-[place] introducer, and a 12-[place] introducer and eventually placed a 14-[place] short sheath under fluoroscopic guidance. Subsequently a pigtail catheter was used with a wire and aortic valve was crossed. The catheter was kept in the left ventricle. An 018 Impella wire was used and this catheter was exchanged for an Impella. Impella was positioned in the LV mid cavity. Excellent waveforms were obtained. This was an Impella CP. Cardiac output was about 3.5 L. Subsequently I used a micropuncture technique through the same sheath in the 10 o'clock position. I gained access and advanced a 7-[place] introducer. Through the 7-[place] introducer, I used initially a 3.5 XB catheter but the aortic root was large, then switched over to a 4.0 XB catheter and a decent guide support. The patient was administered heparin and ACT was kept between 250 and 300. He was already on aspirin and Plavix. He received additional 150 mg of Plavix. A run-through wire was used to cross the lesion in the circumflex marginal and kept distally. Another long whisper wire was advanced and positioned in the LAD. LAD was a total occlusion in the mid portion. I could not advance it, but the diagonal had a good flow and this was previously stented in December 2019. I then pre-dilated the circumflex lesion with a 2.75 caliber, 8 mm balloon. I then deployed a 3.0 caliber 8 mm long Xience stent in the circumflex at the site of restenosis with excellent angiographic result. I used the same balloon and dilated the left main as well as the ostium of the circumflex. I then noted that I could not advance the wire beyond the total occlusion of the LAD and therefore I decided not to pursue LAD but to instead do the left main stenting which had a 75-80 percent stenosis just before the bifurcation. I then lost the guide support and I had considerable difficulty in getting a catheter to sit properly in the left coronary artery. I switched over to a JL5 6-[place] guide catheter. With this, I was able to get a decent seating. I used a run-through wire to cross the lesion in the circumflex and kept the wire distally. I then deployed a 4.0 caliber 12 mm Xience stent extending from the left main into the circumflex and telescoping to the previously placed 3.0 stent. I then post dilated this stent with a 4.5 [place] Trek balloon. Excellent angiographic result without complication was achieved. The Impella was then carefully taken out after reducing it to 2.0. Subsequently under fluoroscopic guidance, the Impella was taken out. I then took the 14-[place] sheath out and I was able to get decent hemostasis. Unfortunately, the 10 o'clock suture of the Perclose broke, but the 2 o'clock one was excellent. Good hemostasis was secured. Manual compression was applied. The wire was taken out and a Femstop applied and patient sent to the room in a stable condition. Excellent hemostasis was achieved with the distal pulse palpable. The patient also received 150 mg of Plavix. Excellent angiographic result was achieved of the circumflex marginal as well as the left main. Details were discussed with the patient and also I talked to his by phone. I expect he will be discharged in the next 24- 48 hours. NAVYA / JIMENEZ: [id number] / MTDAndrew
[2021-08-21] MEDS ORDERED: SODIUM CHLORIDE 0.9% 1,000 ML IV SCH (16:30)
[2021-08-21] MEDS ORDERED: ACETAMINOPHEN TAB 325 MG TAB PO PRN (17:04)
[2021-08-21] MEDS: carvediloL 12.5 MG TAB PO SCH (17:38)
[2021-08-21] MEDS: ATORVASTATIN 80 MG TAB PO SCH (17:38)
[2021-08-21] MEDS: POTASSIUM CITRATE 10 MEQ TABLET.ER PO SCH (20:39)
[2021-08-21] MEDS ORDERED: MELATONIN 5 MG TABLET PO SCH (21:00)
[2021-08-21] MEDS ORDERED: lisinopriL 5 MG TAB PO SCH (21:00)
[2021-08-21] MEDS ORDERED: TAMSULOSIN 0.4 MG CAP.ER.24H PO SCH (21:00)
[2021-08-21 23:19] LABS: Calcium 8.5 mg/dL (8.4-10.2); Total Bilirubin 1.3 mg/dL (0.2-1.3); Total Protein 5.9 g/dL (6.3-8.2)
[2021-08-21 23:24] LABS: Potassium 5.3 mmol/L (3.5-5.1)
[2021-08-22 06:18] LABS: Basophils % (A) 0 %; Eosinophils # (A) 0.2 k/uL (0-0.7); Eosinophils % (A) 3 %; HCT 34.4 % (39.0-53.0); Hypochromasia Slight; Lymphocytes # (A) 1.2 k/uL (1.0-4.8); Lymphocytes % (A) 19 %; MCH 31.1 pg (25.0-35.0); MCHC 31.9 g/dL (31.0-37.0); MCV 97.3 fL (80.0-100.0); Mean Platelet Volume 8.5; Monocytes # (A) 0.5 k/uL (0-1.0); Monocytes % (A) 8 %; Neutrophils # (A) 4.1 k/uL (1.3-7.7); Neutrophils % (A) 67 %; Platelet Count 218 k/uL (150-450); RBC 3.54 m/uL (4.30-5.90); RDW 13.3 % (11.5-15.5); WBC 6.1 k/uL (3.8-10.6)
[2021-08-22 06:30] LABS: Calcium 8.4 mg/dL (8.4-10.2)
[2021-08-22 08:16] VITALS: TEMP 98.3
[2021-08-22] MEDS ORDERED: FUROSEMIDE 40 MG TAB PO SCH (09:00)
[2021-08-22] MEDS ORDERED: NON FORMULARY DRUG (Ubidecarenone [Co Q-10] 100 MG Capsule) PO SCH (09:00)
[2021-08-22] MEDS ORDERED: DULoxetine HCL 60 MG CAPSULE.DR PO SCH (09:00)
[2021-08-22] MEDS ORDERED: CLOPIDOGREL 75 MG TAB PO SCH ×2 (09:00)
[2021-08-22] MEDS ORDERED: ASPIRIN 81 MG PO SCH ×2 (09:00)
[2021-08-22] MEDS ORDERED: SPIRONOLACTONE 25 MG TAB PO SCH (09:00)
--- NOTE | 2021-08-22 09:03 | PN ---
Discharge Note: Mr. Trino Brandt was brought in yesterday for elective PCI, complex high-risk PCI with Impella support. He underwent PCI of the left main and restenotic lesion in the circumflex. Mid LAD was a STAFF MIDWIFE. LAD was partially protected with the WHITE with diffuse disease within the LAD. Excellent angiographic result was achieved yesterday. His right groin is clean and dry. Pulse is excellent both in the femoral as well as the distal. Vitals are stable. There is JVD 1 cm. No carotid bruit. S1-S2 heard normally. Short systolic murmur at the base. Second heart sound is preserved. Lungs are clear. Abdomen is soft, nontender. Right groin is clean and dry. Distal pulses are palpable. Central nervous system is normal. Labs and EKG were reviewed and are unremarkable. Plan is to move him to telemetry. Increase activity and possible discharge later this evening or early tomorrow. I will see him in the office within 1 week.All discharge instructions regarding diet, activity and meds given. He is already on dual antiplatelet therapy which he will continue. MMODL / IJN: [id number] / MARGARITA
[2021-08-22] MEDS: carvediloL 12.5 MG TAB PO SCH (09:22)
[2021-08-22] MEDS: ATORVASTATIN 80 MG TAB PO SCH (09:23)
[2021-08-22] MEDS: POTASSIUM CITRATE 10 MEQ TABLET.ER PO SCH ×2 (09:23→09:57)
[2021-08-22 09:34] VITALS: RESP 13
[2021-08-22 10:31] VITALS: BMI 20.6
[2021-08-22 12:37] VITALS: BP 126/61; PULSE 65
--- NOTE | 2021-08-22 12:44 | P.CONS ---
History of Present Illness - Reason for Consult Consult date: 08/21/21 Medical management Requesting physician: Sanchez Chisholm - Chief Complaint Severe CAD post non-ST UT post 2 angioplasty and stent placem - History of Present Illness HISTORY OF PRESENT ILLNESS This is a 76-year-old male patient of Dr. Hassan with past medical history of hypertension, coronary artery disease status post CABG in 2001, ischemic cardiomyopathy with biventricular ICD implantation, hyperlipidemia, hiatal hernia status post Ramona fundoplication. He was admitted to [facility] on Synthroid 24 acute episode of chest pain and found to have elevated troponin, patient also was having mild dysphagia. Patient ended up going for heart catheter with Dr. Chisholm result came back with total occlusion of the RCA, left main of 70-75% stenosis, mid LAD total occlusion, diagonal was stented and patent, circumflex at the origin is patent within the stent there is 70-80% narrowing. The plan along to bring patient back to the hospital for impella assisted PCI, patient is known to have non-sustained ventricular tachycardia has been on amiodarone before his Coreg was increased before he left the hospital at the time. Patient was brought to the hospital on 08/22/2021 to the clinical laboratory service teacher and had elective PCI complex high risk PCI with impella support he underwent PCI of the left main and the circumflex coronary artery, procedure went successfully with no major complication, patient was admitted to the ICU following his procedure for supportive care to watch for any further arrhythmia. Patient is not having it this point anymore dysphagia is able to tolerate his food well at this point able to drink fluid. Following his procedure his slightly but better compared to August 12 will continue gentle hydration repeat creatinine tomorrow morning. REVIEW OF SYSTEMS Constitutional: No fever, no chills, no night sweats. No weight change. No weakness, fatigue or lethargy. No daytime sleepiness. EENT: No headache. No blurred vision or double vision, no loss of vision. No loss of Hearing, no ringing in the ears, no dizziness. No nasal drainage or congestion. No epistaxis. No sore throat. Lungs: No shortness of breath, cough, no sputum production. No wheezing. Cardiovascular: Reports chest pain with radiation to his back, no lower extremity edema. No palpitations. No paroxysmal nocturnal dyspnea. No orthopnea. No lightheadedness or dizziness. No syncopal episodes. Abdominal: No abdominal pain. No nausea, vomiting. No diarrhea. No constipation. No bloody or tarry stools. No loss of appetite. Genitourinary: No dysuria, increased frequency, urgency. No urinary retention. Musculoskeletal: No myalgias. No muscle weakness, no gait dysfunction, no frequent falls. No back pain. No neck pain. Integumentary: No wounds, no lesions. No rash or pruritus. No unusual bruising. No change in hair or nails. Neurologic: No aphasia. No facial droop. No change in mentation. No head injury. No headache. No paralysis. No paresthesia. Psychiatric: No depression. No anxiety. No mood swings. Endocrine: No abnormal blood sugars. No weight change. No excessive sweating or thirst. No cold intolerance. SOCIAL HISTORY Patient was a smoker of 2-3 packs per day for 26 years and quit in 1985. He drinks a call very rarely. No marijuana or illicit drug use. FAMILY HISTORY Mother at age 86 from colon cancer. Father at age 81 from jaw cancer. Patient has 2 brothers and both the past from heart failure. Patient had 1 sister that at age 13 from rheumatic heart disease. He states he also has a niece and nephew that have congestive heart failure. He does not have any children. PHYSICAL EXAMINATION Gen: This is a 76-year-old male. He is resting in bed and appears to be uncomfortable secondary to pain. HEENT: Head is atraumatic, normocephalic. Pupils equal, round. Sclerae is anicteric. NECK: Supple. No JVD. No lymphadenopathy. No thyromegaly. LUNGS: Clear to auscultation. No wheezes or rhonchi. No intercostal retractions. HEART: Regular rate and rhythm. No murmur. ABDOMEN: Soft. Bowel sounds are present. No masses. No tenderness. EXTREMITIES: No pedal edema. No calf tenderness. NEUROLOGICAL: Patient is awake, alert and oriented x3. Cranial nerves 2 through 12 are grossly intact. ASSESSMENT AND PLAN 1 severe CAD: Post PCI and stent placement of the left main and circumflex coronary artery impella supported, successful procedure so far patient is resting comfortably doing very well otherwise. 2 recent non-ST UT with positive heart cath at the time patient just had angioplasty and stent placement. 3 ischemic cardiomyopathy post AICD: Remain on medication ejection fraction was only 35% patient remain on Lasix and spironolactone. 4 history of ventricular tachycardia, well supported been treated with medication at this point. 5 hypertension: Continue Coreg, lisinopril and spironolactone. 6 hyperlipidemia: Remain on atorvastatin. 7 stage III chronic kidney disease: GFR is in the high 30 continue supportive care patient must be on his MARIANA inhibitor and diuretics for his ischemic cardiomyopathy it will affect his GFR at continue to walk fine-line between not affecting the kidney function in a negative way giving him on the vest medication management for his cardio myopathy. 8 remote tobacco use: Can be on nicotine patch 14 mg daily. 9 dysphagia: Patient had Niesen fundoplication recently he was having slight bit of problem swallowing pills patient seen gastroenterology ENT. 10 BPH: Watch for any urinary retention. Still on Flomax. 11 GI prophylaxis: Will be on PPI. 12 DVT prophylaxis: Knee-high HUMBERTO hose, subcu heparin. CODE STATUS: Full code. Dr. Chisholm thank you very much for the consult I can be any further help to please let me know. Past Medical History Past Medical History: Coronary Artery Disease (CAD), Chest Pain / Angina, COPD, Hyperlipidemia, Hypertension, Myocardial Infarction (UT), Musculoskeletal Disorder, Osteoarthritis (OA), Prostate Disorder, Sleep Apnea/CPAP/BIPAP Additional Past Medical History / Comment(s): HH, fibromyalgia, anemia, hypogonadism, vtach, NSTEMI 10/20/19, CPAP use, Inogen portable. Kidney stones; left flank pain, chronic toni shoulder pain, states has numbness rt arm, recent adm. for chest pain, difficulty swallowing & weight loss Last Myocardial Infarction Date:: 10/20/19 History of Any Multi-Drug Resistant Organisms: None Reported Past Surgical History: Adenoidectomy, AICD, Back Surgery, Cholecystectomy, Coronary Bypass/CABG, Heart Catheterization, Hernia Repair, Orthopedic Surgery, Tonsillectomy Additional Past Surgical History / Comment(s): CABG x3 in 1999, rhinoplasty, ACDF 2, left bunionectomy, Lasik, lipoma from left shoulder 2, colonoscopy 5 years ago, hernia repair. Past Anesthesia/Blood Transfusion Reactions: No Reported Reaction Type of Cardiac Device: AICD Device Placement Date:: 12/12/19 Smoking Status: Former smoker - Past Family History Mother Family Medical History: Cancer, Coronary Artery Disease (CAD) Father Family Medical History: Cancer Brother(s) Family Medical History: Congestive Heart Failure (CHF), Coronary Artery Disease (CAD) Sister(s) Family Medical History: Congestive Heart Failure (CHF) Medications and Allergies Home Medications Medication Instructions Recorded Confirmed Type Aspirin 81 mg PO DAILY chew 10/26/19 08/21/21 Rx Clopidogrel [Plavix] 75 mg PO DAILY #30 tab 10/26/19 08/21/21 Rx Furosemide [Lasix] 40 mg PO DAILY #30 tab 10/26/19 08/21/21 Rx Nitroglycerin Sl Tabs [Nitrostat] 0.4 mg SUBLINGUAL Q5M PRN #25 tab 10/26/19 08/20/21 Rx Prevagen 1 tab PO DAILY 12/08/19 08/21/21 History Spironolactone [Aldactone] 25 mg PO DAILY 12/08/19 08/21/21 History Vit C/E/Zn/Coppr/Lutein/Zeaxan 1 tab PO DAILY 12/08/19 08/21/21 History [Preservision Areds 2 Softgel] Tamsulosin [Flomax] 0.4 mg PO HS 02/16/20 08/21/21 History Acetaminophen [Tylenol 8 Hour] 650 mg PO Q8H PRN 08/10/21 08/20/21 History Atorvastatin [Lipitor] 40 mg PO BID 08/10/21 08/21/21 History DULoxetine HCL [Cymbalta] 60 mg PO DAILY 08/10/21 08/21/21 History L.acidoph,Paracasei, B.lactis 1 cap PO DAILY PRN 08/10/21 08/20/21 History [Probiotic] Potassium Citrate [Urocit-K] 10 meq PO BID 08/10/21 08/21/21 History Ubidecarenone [Co Q-10] 100 mg PO DAILY 08/10/21 08/21/21 History carvediloL [Coreg*] 12.5 mg PO BID-W/MEALS #180 tab 08/12/21 08/21/21 Rx Krill/Om-3/Dha/Epa/Phospho/Ast 1 each PO DAILY 08/20/21 08/21/21 History [Mullins-3 Krill Oil 300 mg Sfgl] Melatonin 5 mg PO HS 08/20/21 08/21/21 History lisinopriL [Zestril] 5 mg PO HS #90 tab 08/22/21 Rx Allergies Allergy/AdvReac Type Severity Reaction Status Date / Time Iodinated Contrast Media AdvReac Unknown Verified 08/20/21 10:43 Physical Exam Vitals: Vital Signs Temp Pulse Pulse Resp BP BP BP 08/21/21 17:00 64 10 L 127/59 08/21/21 16:50 60 18 127/59 08/21/21 16:40 59 L 20 127/59 08/21/21 16:30 97.5 F L 68 21 127/59 08/21/21 16:20 97.5 F L 58 L 12 127/59 08/21/21 16:10 62 17 08/21/21 08:22 97.9 F 67 16 156/72 148/69 Pulse Ox 08/21/21 17:00 100 08/21/21 16:50 100 08/21/21 16:40 100 08/21/21 16:30 99 08/21/21 16:20 100 08/21/21 16:10 08/21/21 08:22 100 Intake and Output 08/21/21 08/21/21 08/21/21 06:59 14:59 22:59 Intake Total 700 75 Output Total 450 Balance 700 -375 Intake: IV 700 75 Sodium Chloride 0.9% 1, 75 000 ml @ 75 mls/hr IV . [id number] Rx#:[id number] Output: Urine 450 Other: Weight 67.4 kg Results CBC & Chem 7: 08/22/21 05:29 08/22/21 05:29
--- NOTE | 2021-08-22 12:47 | P.PN ---
Subjective Progress Note Date: 08/22/21 HISTORY OF PRESENT ILLNESS This is a 76-year-old male patient of Dr. Hassan with past medical history of hypertension, coronary artery disease status post CABG in 2001, ischemic cardiomyopathy with biventricular ICD implantation, hyperlipidemia, hiatal hernia status post Ramona fundoplication. He was admitted to [facility] on Synthroid 24 acute episode of chest pain and found to have elevated troponin, patient also was having mild dysphagia. Patient ended up going for heart catheter with Dr. Chisholm result came back with total occlusion of the RCA, left main of 70-75% stenosis, mid LAD total occlusion, diagonal was stented and patent, circumflex at the origin is patent within the stent there is 70-80% narrowing. The plan along to bring patient back to the hospital for impella assisted PCI, patient is known to have non-sustained ventricular tachycardia has been on amiodarone before his Coreg was increased before he left the hospital at the time. 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 Patient is not having it this point anymore dysphagia is able to tolerate his food well at this point able to drink fluid. Following his procedure his slightly but better compared to August 12 will continue gentle hydration repeat creatinine tomorrow morning. 08/22: Patient is doing very well so far is out of bed still in the ICU doing marcus y well right groin area for the catheter and the Impella support site looks good with no problem. Patient will be discharged home today apparently his medication were finalized by cardiology, his kidney function remained down little bit not a lot different than yesterday's GFR is 46 today. Patient be discharged home to see his primary care and cardiology. REVIEW OF SYSTEMS Constitutional: No fever, no chills, no night sweats. No weight change. No weakness, fatigue or lethargy. No daytime sleepiness. EENT: No headache. No blurred vision or double vision, no loss of vision. No loss of Hearing, no ringing in the ears, no dizziness. No nasal drainage or congestion. No epistaxis. No sore throat. Lungs: No shortness of breath, cough, no sputum production. No wheezing. Cardiovascular: Reports chest pain with radiation to his back, no lower extremity edema. No palpitations. No paroxysmal nocturnal dyspnea. No orthopnea. No lightheadedness or dizziness. No syncopal episodes. Abdominal: No abdominal pain. No nausea, vomiting. No diarrhea. No consti pation. No bloody or tarry stools. No loss of appetite. Genitourinary: No dysuria, increased frequency, urgency. No urinary retention. Musculoskeletal: No myalgias. No muscle weakness, no gait dysfunction, no frequent falls. No back pain. No neck pain. Integumentary: No wounds, no lesions. No rash or pruritus. No unusual bruising. No change in hair or nails. Neurologic: No aphasia. No facial droop. No change in mentation. No head injury. No headache. No paralysis. No paresthesia. Psychiatric: No depression. No anxiety. No mood swings. Endocrine: No abnormal blood sugars. No weight change. No excessive sweating or thirst. No cold intolerance. PHYSICAL EXAMINATION Gen: This is a 76-year-old male. He is resting in bed and appears to be uncomfortable secondary to pain. HEENT: Head is atraumatic, normocephalic. Pupils equal, round. Sclerae is anicteric. NECK: Supple. No JVD. No lymphadenopathy. No thyromegaly. LUNGS: Clear to auscultation. No wheezes or rhonchi. No intercostal retractions. HEART: Regular rate and rhythm. No murmur. ABDOMEN: Soft. Bowel sounds are present. No masses. No tenderness. EXTREMITIES: No pedal edema. No calf tenderness. NEUROLOGICAL: Patient is awake, alert and oriented x3. Cranial nerves 2 through 12 are grossly intact. ASSESSMENT AND PLAN 1 severe CAD: Post PCI and stent placement of the left main and circumflex coronary artery impella supported, successful procedure so far patient is resting comfortably doing very well otherwise. Doing well medical management post procedure. 2 recent non-ST CO with positive heart cath at the time patient just had angioplasty and stent placement. 3 ischemic cardiomyopathy post AICD: Remain on medication ejection fraction was only 35% patient remain on Lasix and spironolactone. Along with Coreg and lisinopril. 4 history of ventricular tachycardia, well supported been treated with medication at this point. Patient has an AICD has not been going off lately. 5 hypertension: Continue Coreg, lisinopril and spironolactone. 6 hyperlipidemia: Remain on atorvastatin which will be up to 80 mg daily. 7 stage III chronic kidney disease: GFR is in the high 30 continue supportive care patient must be on his MARIANA inhibitor and diuretics for his ischemic cardiomyopathy it will affect his GFR at continue to walk fine-line between not affecting the kidney function in a negative way giving him on the vest medication management for his cardio myopathy. 8 remote tobacco use: Can be on nicotine patch 14 mg daily. 9 dysphagia: Patient had Niesen fundoplication recently he was having slight bit of problem swallowing pills patient seen gastroenterology ENT. Patient is doing very well since his last admission. 10 BPH: Watch for any urinary retention. Still on Flomax. Discharge planning: Patient be discharged home today. Objective - Vital Signs Vital signs: Vital Signs Temp 98.3 F 08/22/21 08:00 Pulse 65 08/22/21 12:00 Resp 13 08/22/21 12:00 BP 126/61 08/22/21 12:00 Pulse Ox 96 08/22/21 12:00 Intake & Output 08/21/21 08/22/21 08/22/21 18:59 06:59 18:59 Intake Total 850 900 225 Output Total 1000 1250 325 Balance -150 -350 -100 Weight 67.4 kg 63.3 kg 63.3 kg Intake: IV 850 900 225 Sodium Chloride 0.9% 1, 150 900 225 000 ml @ 75 mls/hr IV . [id number] [facility] Rx#:[id number] Output: Urine 1000 1250 325 Other: Voiding Method Urinal Urinal # Voids 1 - Labs CBC & Chem 7: 08/22/21 05:29 08/22/21 05:29 Labs: Abnormal Lab Results - Last 24 Hours (Table) 08/21/21 08/22/21 08/22/21 Range/Units 23:00 05:29 05:29 RBC 3.54 L (4.30-5.90) m/uL Hgb 11.0 L (13.0-17.5) gm/dL Hct 34.4 L (39.0-53.0) % Sodium 132 L 133 L (137-145) mmol/L Potassium 5.3 H (3.5-5.1) mmol/L Creatinine 1.38 H 1.45 H (0.66-1.25) mg/dL Total Protein 5.9 L (6.3-8.2) g/dL Albumin 3.0 L (3.5-5.0) g/dL
== END 2021-08-22 14:14 | disposition home or self-care (01) | DRG 221 ==
LOC: 2ORMAIN 07:57 → EDSTATUS 10:30 → 2SICU 15:19
PROVIDERS: ADMIT Internal Medicine Interventional Cardiology; ATTEND Internal Medicine Interventional Cardiology
PROC: 02HA3RJ Insertion of Short-term External Heart Assist System into Heart, Intraoperative, Percutaneous Approach (ICD-10-PCS; 2021-08-21)
PROC: 5A0221D Assistance with Cardiac Output using Impeller Pump, Continuous (ICD-10-PCS; principal; 2021-08-21 10:30)
PROC: 027135Z Dilation of Coronary Artery, Two Arteries with Two Drug-eluting Intraluminal Devices, Percutaneous Approach (ICD-10-PCS; 2021-08-21 10:30)
DX: I25.119 Atherosclerotic heart disease of native coronary artery with unspecified angina pectoris (principal); I25.10 Atherosclerotic heart disease of native coronary artery without angina pectoris; Z95.1 Presence of aortocoronary bypass graft; Z95.5 Presence of coronary angioplasty implant and graft; I25.82 Chronic total occlusion of coronary artery; E78.5 Hyperlipidemia, unspecified; I25.5 Ischemic cardiomyopathy; I25.2 Old myocardial infarction; J44.9 Chronic obstructive pulmonary disease, unspecified; Z20.822 Contact with and (suspected) exposure to COVID-19; M79.7 Fibromyalgia; N18.30 Chronic kidney disease, stage 3 unspecified; I12.9 Hypertensive chronic kidney disease with stage 1 through stage 4 chronic kidney disease, or unspecified chronic kidney disease; Z79.02 Long term (current) use of antithrombotics/antiplatelets; Z79.82 Long term (current) use of aspirin; Z79.899 Other long term (current) drug therapy; Z80.0 Family history of malignant neoplasm of digestive organs; Z82.49 Family history of ischemic heart disease and other diseases of the circulatory system; Z87.442 Personal history of urinary calculi; Z87.891 Personal history of nicotine dependence; Z95.810 Presence of automatic (implantable) cardiac defibrillator; R13.10 Dysphagia, unspecified; N40.0 Benign prostatic hyperplasia without lower urinary tract symptoms
CPT/HCPCS: 36415; 80048; 80053; 83735; 85025; 85027; 87635

== ENCOUNTER 2022-06-13 16:05 | Inpatient (IN) | payer MEDICARE ==
[2022-06-13] MEDS ORDERED: SODIUM CHLORIDE 0.9% 500 ML 500 ML IV STA ×2 (16:50→18:28)
--- NOTE | 2022-06-13 17:09 | ED ---
General Adult HPI - General Chief complaint: Weakness Stated complaint: Covid + Time Seen by Provider: 06/13/22 16:27 Source: patient, EMS, RN notes reviewed Mode of arrival: EMS Limitations: no limitations - History of Present Illness Initial comments: 76-year-old male presents to the emergency department via EMS from home with complaints of increasing generalized weakness. Patient states he tested positive for Covid on 06-10-22. States his symptoms began with diarrhea nearly a week ago. Reports congested productive cough. States he is short of breath with activity. Has been taking Paxlovid but continues to feel poorly. Complains of dizziness with position changes. Has been taking in at least three quarts of water daily. States he has had occasional fevers. Denies headache, chest pain/tightness, abdominal pain, nausea, vomiting, or dysuira. - Related Data Home Medications Medication Instructions Recorded Confirmed Vit C/E/Zn/Coppr/Lutein/Zeaxan 1 cap PO BID 12/08/19 06/13/22 [Preservision Areds 2 Softgel] Atorvastatin [Lipitor] 80 mg PO HS 08/10/21 06/13/22 DULoxetine HCL [Cymbalta] 60 mg PO DAILY 08/10/21 06/13/22 Potassium Citrate [Urocit-K] 10 meq PO BID 08/10/21 06/13/22 Amiodarone [Cordarone] 200 mg PO DAILY 06/13/22 06/13/22 Amoxicillin 875 mg PO Q12HR 06/13/22 06/13/22 Lidocaine 5% Patch [Lidoderm 5% 1 patch TOPICAL DAILY PRN 06/13/22 06/13/22 Patch] Multivitamins, Thera [Multivitamin 1 tab PO DAILY 06/13/22 06/13/22 (formulary)] Nirmatrelvir/Ritonavir [Paxlovid 1 dose PO DIRECTED 06/13/22 06/13/22 150-100 mg Pack (Eua)] Sotalol [Betapace] 80 mg PO BID 06/13/22 06/13/22 oxyCODONE-APAP 10-325MG [Percocet 1 tab PO Q4HR PRN 06/13/22 06/13/22 10-325 mg] predniSONE See Taper PO DIRECTED 06/13/22 06/13/22 Previous Rx's Medication Instructions Recorded Aspirin 81 mg PO DAILY chew 10/26/19 Clopidogrel [Plavix] 75 mg PO DAILY #30 tab 10/26/19 Furosemide [Lasix] 40 mg PO DAILY #30 tab 10/26/19 Nitroglycerin Sl Tabs [Nitrostat] 0.4 mg SUBLINGUAL Q5M PRN #25 tab 10/26/19 carvediloL [Coreg*] 12.5 mg PO BID-W/MEALS #180 tab 08/12/21 lisinopriL [Zestril] 5 mg PO HS #90 tab 08/22/21 Allergies Allergy/AdvReac Type Severity Reaction Status Date / Time Iodinated Contrast Media AdvReac Unknown Verified 06/13/22 21:03 Review of Systems ROS Statement: Those systems with pertinent positive or pertinent negative responses have been documented in the HPI. ROS Other: All systems not noted in ROS Statement are negative. Past Medical History Past Medical History: Coronary Artery Disease (CAD), Chest Pain / Angina, COPD, Hyperlipidemia, Hypertension, Myocardial Infarction ([place]), Musculoskeletal Disorder, Osteoarthritis (OA), Prostate Disorder, Sleep Apnea/CPAP/BIPAP Additional Past Medical History / Comment(s): HH, fibromyalgia, anemia, hypogonadism, vtach, NSTEMI 10/20/19, CPAP use, Inogen portable. Kidney stones; left flank pain, chronic toni shoulder pain, states has numbness rt arm, recent adm. for chest pain, difficulty swallowing & weight loss Last Myocardial Infarction Date:: 10/20/19 History of Any Multi-Drug Resistant Organisms: None Reported Past Surgical History: Adenoidectomy, AICD, Back Surgery, Cholecystectomy, Coronary Bypass/CABG, Heart Catheterization, Hernia Repair, Orthopedic Surgery, Tonsillectomy Additional Past Surgical History / Comment(s): CABG x3 in 1999, rhinoplasty, ACDF 2, left bunionectomy, Lasik, lipoma from left shoulder 2, colonoscopy 5 years ago, hernia repair. Past Anesthesia/Blood Transfusion Reactions: No Reported Reaction Type of Cardiac Device: AICD Device Placement Date:: 12/12/19 Smoking Status: Former smoker - Past Family History Mother Family Medical History: Cancer, Coronary Artery Disease (CAD) Father Family Medical History: Cancer Brother(s) Family Medical History: Congestive Heart Failure (CHF), Coronary Artery Disease (CAD) Sister(s) Family Medical History: Congestive Heart Failure (CHF) General Exam Limitations: no limitations General appearance: alert, in no apparent distress Eye exam: Present: normal appearance. Absent: scleral icterus, conjunctival injection ENT exam: Present: normal exam, mucous membranes moist Respiratory exam: Present: normal lung sounds bilaterally. Absent: respiratory distress, wheezes, rales, rhonchi, stridor, chest wall tenderness Cardiovascular Exam: Present: regular rate, normal rhythm, normal heart sounds GI/Abdominal exam: Present: soft, normal bowel sounds. Absent: distended, tenderness, guarding, rebound, rigid Extremities exam: Present: normal inspection, full ROM, normal capillary refill. Absent: tenderness, pedal edema, joint swelling Neurological exam: Present: alert, oriented X3 Psychiatric exam: Present: flat affect Skin exam: Present: warm, dry, intact, pallor. Absent: rash Course Vital Signs 06/13/22 06/13/22 06/13/22 16:07 17:29 17:49 Temperature 98 F Pulse Rate 102 H 100 Pulse Rate [ 75 [employer]er ] Respiratory 18 20 Rate Blood Pressure 141/88 130/65 Blood Pressure [Right Arm] O2 Sat by Pulse 96 98 Oximetry 06/13/22 06/13/22 06/13/22 18:37 19:00 21:00 Temperature Pulse Rate 100 100 110 H Pulse Rate [ [employer]er ] Respiratory 20 16 20 Rate Blood Pressure 143/68 164/110 190/96 Blood Pressure [Right Arm] O2 Sat by Pulse 98 98 95 Oximetry 06/13/22 06/13/22 06/14/22 22:00 22:42 00:00 Temperature Pulse Rate 100 100 Pulse Rate [ [employer]er ] Respiratory 20 20 Rate Blood Pressure 161/110 170/88 Blood Pressure 143/88 [Right Arm] O2 Sat by Pulse 98 95 Oximetry 06/14/22 06/14/22 06/14/22 02:00 04:00 08:00 Temperature 97.8 F Pulse Rate Pulse Rate [ 81 99 92 [employer]ipe [employer]er ] Respiratory 21 16 Rate Blood Pressure Blood Pressure 128/95 148/101 [Right Arm] O2 Sat by Pulse 93 L Oximetry 06/14/22 06/14/22 06/14/22 08:15 08:24 14:00 Temperature Pulse Rate Pulse Rate [ 81 81 [employer]er ] Respiratory Rate Blood Pressure Blood Pressure [Right Arm] O2 Sat by Pulse 99 Oximetry 06/14/22 06/14/22 14:49 18:45 Temperature 98.9 F 96 F L Pulse Rate Pulse Rate [ 75 98 [employer]er ] Respiratory 20 24 Rate Blood Pressure Blood Pressure 113/61 143/77 [Right Arm] O2 Sat by Pulse 96 95 Oximetry - Reevaluation(s) Reevaluation #1: 06/13/22 18:15 Upon reevaluation, patient reports he continues to feel poorly. Reiterates mild dizziness, generalized weakness, intermittent nausea, but denies chest pain or tightness. Discussed laboratory results and hospital admission. Heparin will be initiated given elevated troponin. Patient is agreeable with this plan of care. This patient's care was discussed with my attending, Dr. Kauffman. 06/13/22 19:31 I spoke with Lukasz Victoria NP who agrees to accept this patient on behalf of [facility]. We discussed conservative IV fluids for hydration given his elevated BNP in the presence of lactic acidosis. Medical Decision Making - Medical Decision Making His is a pleasant 76-year-old male with a past medical history of COPD, hyperten arvind, CAD, and previous [place] presents to the emergency department with complaints of generalized weakness that he attributes to multiple episodes of diarrhea secondary to Covid 19 infection. Upon exam, patient is pleasant though appears to be feeling poorly, no acute distress. Physical exam findings are unremarkable. Chest x-ray shows cardiomegaly and small pleural effusion. Laboratory studies were obtained: Creatinine 1.34, lactic acid 3.1, troponin 0.947, and BNP 84,000. Patient was given gentle fluid bolus for elevated lactic acid. Started on heparin due to elevated troponin. Patient will be admitted to the hospital and cardiology will be consulted. I spoke with Lukasz Victoria NP who agrees to accept this admission. Patient is agreeable with plan of care. Attending: Jamari Was pt. sent in by a medical professional or institution? @ No Did you speak to anyone other than the patient for history? @ No Did you review nursing and triage notes? @ Yes agree Were old charts reviewed? @ Old EKG and previous admissions were reviewed Differential Diagnosis? @ Covid, dehydration, pneumonia EKG interpreted by me (3pts min.)? @ EKG as interpreted by me shows paced rhythm X-rays interpreted by me (1pt min.)? @Chest x-ray shows cardiomegaly CT interpreted by me (1pt min.)? @Not applicable U/S interpreted by me (1pt. min.)? @Not applicable What testing was considered but not performed? (CT, X-rays, U/S, labs)? Why? @None What meds were considered but not given? Why? @Consider Lasix for CHF/elevate BNP but deferred given his recent excess fluid loss Did you discuss the management of the patient with other professionals? @ Spoke with admitting provider, Lukasz Victoria NP Did you reconcile home meds? @Yes Was smoking cessation discussed for >3mins.? @No Was critical care preformed (if so, how long)? @No Were there social determinants of health that impacted care today? How? (Homelessness, low income, unemployed, alcoholism, drug addiction, transportation, low edu. Level, literacy, decrease access to med. care, shelter, rehab)? @No Was there de-escalation of care discussed even if they declined? (Discuss DNR or withdrawal of care, Hospice)? @No What co-morbidities impacted this encounter? (DM, HTN, Smoking, COPD, CAD, Cancer, CVA, Hep., AIDS, mental health diagnosis, sleep apnea, morbid obesity)? @CHF Was patient admitted / discharged? @Admitted Undiagnosed new problem with uncertain prognosis? @ [none] Drug Therapy requiring intensive monitoring for toxicity (Heparin, Nitro, Insulin, Cardizem)? @Heparin Were any procedures done? @No Diagnosis/symptom? @Covid 19 Acute, or Chronic, or Acute on Chronic? @Acute Uncomplicated (without systemic symptoms) or Complicated (systemic symptoms)? @Complicated Side effects of treatment? @None Exacerbation, Progression, or Severe Exacerbation] @Not applicable Poses a threat to life or bodily function? @Diminished capacity due to weakness Diagnosis/symptom? @ Dehydration Acute, or Chronic, or Acute on Chronic? @ Acute Uncomplicated (without systemic symptoms) or Complicated (systemic symptoms)? @ Uncomplicated Side effects of treatment? @ May exacerbate CHF Exacerbation, Progression, or Severe Exacerbation] @No Poses a threat to life or bodily function? @ Diminished capacity due to weakness Diagnosis/symptom? @Elevated troponin Acute, or Chronic, or Acute on Chronic? @ Acute Uncomplicated (without systemic symptoms) or Complicated (systemic symptoms)? @ Complicated Side effects of treatment? @Heparin therapy associated with bleeding Exacerbation, Progression, or Severe Exacerbation] @ No Poses a threat to life or bodily function? @Potentially poses a threat if associated with ACS Diagnosis/symptom? @Chronic kidney disease Acute, or Chronic, or Acute on Chronic? @Acute on chronic Uncomplicated (without systemic symptoms) or Complicated (systemic symptoms)? @ Uncomplicated Side effects of treatment? @ None Exacerbation, Progression, or Severe Exacerbation] @Exacerbation Poses a threat to life or bodily function? @ Not at this time - Lab Data Result diagrams: 06/14/22 05:34 06/15/22 07:03 Lab Results 06/13/22 06/13/22 06/13/22 Range/Units 17:20 17:20 17:20 WBC 9.1 (3.8-10.6) k/uL RBC 4.02 L (4.30-5.90) m/uL Hgb 11.9 L (13.0-17.5) gm/dL Hct 36.7 L (39.0-53.0) % MCV 91.2 (80.0-100.0) fL MCH 29.7 (25.0-35.0) pg MCHC 32.6 (31.0-37.0) g/dL RDW 14.6 (11.5-15.5) % Plt Count 255 (150-450) k/uL MPV 9.0 Neutrophils % 75 % Lymphocytes % 12 % Monocytes % 10 % Eosinophils % 0 % Basophils % 0 % Neutrophils # 6.8 (1.3-7.7) k/uL Lymphocytes # 1.1 (1.0-4.8) k/uL Monocytes # 0.9 (0-1.0) k/uL Eosinophils # 0.0 (0-0.7) k/uL Basophils # 0.0 (0-0.2) k/uL Hypochromasia Slight PT 10.2 (9.0-12.0) sec INR 1.0 (<1.2) APTT 24.6 (22.0-30.0) sec Sodium 138 (137-145) mmol/L Potassium 5.3 H (3.5-5.1) mmol/L Chloride 108 H (98-107) mmol/L Carbon Dioxide 20 L (22-30) mmol/L Anion Gap 10 mmol/L BUN 20 (9-20) mg/dL Creatinine 1.34 H (0.66-1.25) mg/dL Est GFR (CKD-EPI)AfAm 59 (>60 ml/min/1.73 sqM) Est GFR (CKD-EPI)NonAf 51 (>60 ml/min/1.73 sqM) Glucose 113 H (74-99) mg/dL Lactic Ac Sepsis Rflx Plasma Lactic Acid Kyle (0.7-2.0) mmol/L Calcium 9.1 (8.4-10.2) mg/dL Magnesium 1.9 (1.6-2.3) mg/dL Total Bilirubin 0.8 (0.2-1.3) mg/dL AST 34 (17-59) U/L ALT 20 (4-49) U/L Alkaline Phosphatase 78 (38-126) U/L Troponin I (0.000-0.034) ng/mL NT-Pro-B Natriuret Pep pg/mL Total Protein 6.3 (6.3-8.2) g/dL Albumin 3.5 (3.5-5.0) g/dL Coronavirus (PCR) (Not Detectd) Influenza Type A RNA (Not Detectd) Influenza Type B (PCR) (Not Detectd) 06/13/22 06/13/22 06/13/22 Range/Units 17:20 17:20 17:20 WBC (3.8-10.6) k/uL RBC (4.30-5.90) m/uL Hgb (13.0-17.5) gm/dL Hct (39.0-53.0) % MCV (80.0-100.0) fL MCH (25.0-35.0) pg MCHC (31.0-37.0) g/dL RDW (11.5-15.5) % Plt Count (150-450) k/uL MPV Neutrophils % % Lymphocytes % % Monocytes % % Eosinophils % % Basophils % % Neutrophils # (1.3-7.7) k/uL Lymphocytes # (1.0-4.8) k/uL Monocytes # (0-1.0) k/uL Eosinophils # (0-0.7) k/uL Basophils # (0-0.2) k/uL Hypochromasia PT (9.0-12.0) sec INR (<1.2) APTT (22.0-30.0) sec Sodium (137-145) mmol/L Potassium (3.5-5.1) mmol/L Chloride (98-107) mmol/L Carbon Dioxide (22-30) mmol/L Anion Gap mmol/L BUN (9-20) mg/dL Creatinine (0.66-1.25) mg/dL Est GFR (CKD-EPI)AfAm (>60 ml/min/1.73 sqM) Est GFR (CKD-EPI)NonAf (>60 ml/min/1.73 sqM) Glucose (74-99) mg/dL Lactic Ac Sepsis Rflx Plasma Lactic Acid Kyle 3.1 H* (0.7-2.0) mmol/L Calcium (8.4-10.2) mg/dL Magnesium (1.6-2.3) mg/dL Total Bilirubin (0.2-1.3) mg/dL AST (17-59) U/L ALT (4-49) U/L Alkaline Phosphatase (38-126) U/L Troponin I 0.947 H* (0.000-0.034) ng/mL NT-Pro-B Natriuret Pep 48653 pg/mL Total Protein (6.3-8.2) g/dL Albumin (3.5-5.0) g/dL Coronavirus (PCR) (Not Detectd) Influenza Type A RNA (Not Detectd) Influenza Type B (PCR) (Not Detectd) 06/13/22 06/13/22 06/13/22 Range/Units 17:20 17:20 18:15 WBC (3.8-10.6) k/uL RBC (4.30-5.90) m/uL Hgb (13.0-17.5) gm/dL Hct (39.0-53.0) % MCV (80.0-100.0) fL MCH (25.0-35.0) pg MCHC (31.0-37.0) g/dL RDW (11.5-15.5) % Plt Count (150-450) k/uL MPV Neutrophils % % Lymphocytes % % Monocytes % % Eosinophils % % Basophils % % Neutrophils # (1.3-7.7) k/uL Lymphocytes # (1.0-4.8) k/uL Monocytes # (0-1.0) k/uL Eosinophils # (0-0.7) k/uL Basophils # (0-0.2) k/uL Hypochromasia PT (9.0-12.0) sec INR (<1.2) APTT (22.0-30.0) sec Sodium (137-145) mmol/L Potassium (3.5-5.1) mmol/L Chloride (98-107) mmol/L Carbon Dioxide (22-30) mmol/L Anion Gap mmol/L BUN (9-20) mg/dL Creatinine (0.66-1.25) mg/dL Est GFR (CKD-EPI)AfAm (>60 ml/min/1.73 sqM) Est GFR (CKD-EPI)NonAf (>60 ml/min/1.73 sqM) Glucose (74-99) mg/dL Lactic Ac Sepsis Rflx Y Plasma Lactic Acid Kyle (0.7-2.0) mmol/L Calcium (8.4-10.2) mg/dL Magnesium (1.6-2.3) mg/dL Total Bilirubin (0.2-1.3) mg/dL AST (17-59) U/L ALT (4-49) U/L Alkaline Phosphatase (38-126) U/L Troponin I (0.000-0.034) ng/mL NT-Pro-B Natriuret Pep pg/mL Total Protein (6.3-8.2) g/dL Albumin (3.5-5.0) g/dL Coronavirus (PCR) Detected A (Not Detectd) Influenza Type A RNA Not Detected (Not Detectd) Influenza Type B (PCR) Not Detected (Not Detectd) - EKG Data Rate: tachycardia EKG Comments: EKG obtained at 1739 shows atrial sensed ventricular paced rhythm with biventricular pacemaker. Ventricular rate 104, AK interval 176, QRS duration 134, QT/QTC 382/502. Interpretation abnormal ECG. Compared with previous ECG on 08-11-21 showing no acute changes. - Radiology Data Radiology results: report reviewed, image reviewed Interpreted by me: Per my interpretation, chest x-ray shows no focal area of infiltrate or consolidation. Two-view chest x-ray was obtained. Report was reviewed in its entirety. Impression per Dr. Moon is cardiomegaly and small left pleural effusion. Pleural fluid appears to compare to old exam. No obvious heart failure. Disposition Clinical Impression: Chronic renal insufficiency, Dehydration, Lactic acidosis, Elevated troponin, COVID-19 Disposition: ADMITTED IP TO THIS HOSP Condition: Serious Decision Date: 06/13/22 Decision Time: 19:38
[2022-06-13 17:39] LABS: Basophils % (A) 0 %; Eosinophils % (A) 0 %; HCT 36.7 % (39.0-53.0); HGB 11.9 gm/dL (13.0-17.5); Hypochromasia Slight; Lymphocytes # (A) 1.1 k/uL (1.0-4.8); Lymphocytes % (A) 12 %; MCH 29.7 pg (25.0-35.0); MCHC 32.6 g/dL (31.0-37.0); MCV 91.2 fL (80.0-100.0); Monocytes # (A) 0.9 k/uL (0-1.0); Monocytes % (A) 10 %; Neutrophils # (A) 6.8 k/uL (1.3-7.7); Neutrophils % (A) 75 %; Platelet Count 255 k/uL (150-450); RBC 4.02 m/uL (4.30-5.90); RDW 14.6 % (11.5-15.5); WBC 9.1 k/uL (3.8-10.6)
[2022-06-13 17:49] LABS: Albumin 3.5 g/dL (3.5-5.0); Calcium 9.1 mg/dL (8.4-10.2); Magnesium 1.9 mg/dL (1.6-2.3); Potassium 5.3 mmol/L (3.5-5.1); Total Bilirubin 0.8 mg/dL (0.2-1.3); Total Protein 6.3 g/dL (6.3-8.2)
[2022-06-13 18:04] LABS: Partial Thromboplastin Time 24.6 sec (22.0-30.0); Prothrombin Time 10.2 sec (9.0-12.0)
--- NOTE | 2022-06-13 18:23 | XR ---
EXAMINATION TYPE: XR chest 2V DATE OF EXAM: 06/13/2022 COMPARISON: 08/11/2021 HISTORY: Weakness TECHNIQUE: FINDINGS: There is mild blunting left retrograde angle. Heart is enlarged. No obvious heart failure. There is left axillary pacemaker. There are sternal wires. IMPRESSION: Cardiomegaly and small left pleural effusion. Pleural fluid appears new compared to old e xam. No obvious heart failure
[2022-06-13] MEDS ORDERED: ONDANSETRON 4 MG/2 ML VIAL IVP STA (18:28)
[2022-06-13] MEDS ORDERED: SODIUM CHLORIDE 0.9% 1,000 ML IV STA (18:28)
[2022-06-13] MEDS ORDERED: HEPARIN SODIUM 1,000 UN/ML (10ML VL) IV ONE (18:41)
[2022-06-13] MEDS: HEPARIN SOD,PORK IN 0.45% NACL 25,000 UNIT in 0.45% NACL 1 250ML.BAG IV SCH (18:57)
[2022-06-13] MEDS ORDERED: NALOXONE 0.4 MG/ML 1 ML VIAL IV PRN (19:38)
[2022-06-13] MEDS ORDERED: ACETAMINOPHEN TAB 325 MG TAB PO PRN (19:38)
[2022-06-13] MEDS ORDERED: ALPRAZolam 0.25 MG TAB PO PRN (19:38)
[2022-06-13] MEDS ORDERED: ONDANSETRON 4 MG/2 ML VIAL IVP PRN (19:38)
[2022-06-13] MEDS: SODIUM CHLORIDE 0.9% 1,000 ML IV SCH (21:56)
[2022-06-13] MEDS: carvediloL 3.125 MG TAB PO SCH (22:42)
[2022-06-13] MEDS: HYDROmorphone 0.5 MG/0.5 ML SYRINGE IVP PRN (22:42)
[2022-06-14] MEDS: HYDROmorphone 0.5 MG/0.5 ML SYRINGE IVP PRN ×3 (04:28→17:14)
[2022-06-14 06:15] LABS: Albumin 3.1 g/dL (3.5-5.0); Calcium 8.4 mg/dL (8.4-10.2); Potassium 4.5 mmol/L (3.5-5.1); Total Bilirubin 0.6 mg/dL (0.2-1.3); Total Protein 5.7 g/dL (6.3-8.2)
[2022-06-14 06:22] LABS: INR 1.1 (<1.2)
[2022-06-14 06:23] LABS: Basophils % (A) 1 %; Eosinophils % (A) 0 %; HCT 34.9 % (39.0-53.0); HGB 11.2 gm/dL (13.0-17.5); Hypochromasia Slight; Lymphocytes # (A) 1.5 k/uL (1.0-4.8); Lymphocytes % (A) 23 %; MCH 29.7 pg (25.0-35.0); MCHC 32.2 g/dL (31.0-37.0); Mean Platelet Volume 9.1; Monocytes # (A) 0.6 k/uL (0-1.0); Monocytes % (A) 10 %; Neutrophils # (A) 4.1 k/uL (1.3-7.7); Neutrophils % (A) 64 %; Platelet Count 248 k/uL (150-450); RBC 3.79 m/uL (4.30-5.90); RDW 14.7 % (11.5-15.5); WBC 6.4 k/uL (3.8-10.6)
[2022-06-14] MEDS: HEPARIN SODIUM 1,000 UN/ML (10ML VL) IV PRN (06:45)
[2022-06-14] MEDS: carvediloL 3.125 MG TAB PO SCH (06:48)
[2022-06-14] MEDS: FAMOTIDINE 20 MG TAB PO SCH (09:25)
[2022-06-14] MEDS ORDERED: NITROGLYCERIN SL TABS 0.4 MG TAB SUBLINGUAL PRN (09:56)
--- NOTE | 2022-06-14 10:00 | P.CRDCN ---
History of Present Illness Consult date: 06/14/22 Chief complaint: Generalized weakness and fatigue History of present illness: The patient is a pleasant 76-year-old gentleman who sees Dr. Chisholm irregularly with a past medical history significant for coronary artery disease with prior revascularization in terms off bypass and stenting and the patient underwent stenting of the left main and left circumflex recently prior stenting of the LAD or as well as history of ischemic cardiomyopathy with EF around 40% as well as history of ventricular tachycardia status post AICD as well as multiple comorbid conditions including hypertension and dyslipidemia. He presented to the hospital because he was not feeling well. For the last few days he has been experiencing generalized weakness and fatigue and lately has been experiencing diarrhea and also has been having fever and chills. He tested positive for "at home and he presented to the hospital where the test was repeated came in to be positive as well. He was admitted for further evaluation. We consulted to see the patient because of abnormal troponin. The EKG showed sinus tachycardia with atrial sensed ventricular paced rhythm. Currently the patient is chest pain- free and he has no chest pain before he presented to the hospital. He has been coughing with mild sputum production has been experiencing fever and chills. Beside that he underwent a chest x-ray which she did not show any acute abnormalities. The rest of the blood work overall came in to be unremarkable beside mildly abnormal kidney function Past Medical History Past Medical History: Coronary Artery Disease (CAD), Chest Pain / Angina, COPD, Hyperlipidemia, Hypertension, Myocardial Infarction ([place]), Musculoskeletal Di sorder, Osteoarthritis (OA), Prostate Disorder, Sleep Apnea/CPAP/BIPAP Additional Past Medical History / Comment(s): HH, fibromyalgia, anemia, hypogonadism, vtach, NSTEMI 10/20/19, CPAP use, Inogen portable. Kidney stones; left flank pain, chronic toni shoulder pain, states has numbness rt arm, recent adm. for chest pain, difficulty swallowing & weight loss Last Myocardial Infarction Date:: 10/20/19 History of Any Multi-Drug Resistant Organisms: None Reported Past Surgical History: Adenoidectomy, AICD, Back Surgery, Cholecystectomy, Coronary Bypass/CABG, Heart Catheterization, Hernia Repair, Orthopedic Surgery, Tonsillectomy Additional Past Surgical History / Comment(s): CABG x3 in 1999, rhinoplasty, ACDF 2, left bunionectomy, Lasik, lipoma from left shoulder 2, colonoscopy 5 years ago, hernia repair. Past Anesthesia/Blood Transfusion Reactions: No Reported Reaction Type of Cardiac Device: AICD Device Placement Date:: 12/12/19 Smoking Status: Former smoker - Past Family History Mother Family Medical History: Cancer, Coronary Artery Disease (CAD) Father Family Medical History: Cancer Brother(s) Family Medical History: Congestive Heart Failure (CHF), Coronary Artery Disease (CAD) Sister(s) Family Medical History: Congestive Heart Failure (CHF) Medications and Allergies Home Medications Medication Instructions Recorded Confirmed Type Aspirin 81 mg PO DAILY chew 10/26/19 06/13/22 Rx Clopidogrel [Plavix] 75 mg PO DAILY #30 tab 10/26/19 06/13/22 Rx Furosemide [Lasix] 40 mg PO DAILY #30 tab 10/26/19 06/13/22 Rx Nitroglycerin Sl Tabs [Nitrostat] 0.4 mg SUBLINGUAL Q5M PRN #25 tab 10/26/19 06/13/22 Rx Vit C/E/Zn/Coppr/Lutein/Zeaxan 1 cap PO BID 12/08/19 06/13/22 History [Preservision Areds 2 Softgel] Atorvastatin [Lipitor] 80 mg PO HS 08/10/21 06/13/22 History DULoxetine HCL [Cymbalta] 60 mg PO DAILY 08/10/21 06/13/22 History Potassium Citrate [Urocit-K] 10 meq PO BID 08/10/21 06/13/22 History carvediloL [Coreg*] 12.5 mg PO BID-W/MEALS #180 tab 08/12/21 06/13/22 Rx lisinopriL [Zestril] 5 mg PO HS #90 tab 08/22/21 06/13/22 Rx Amiodarone [Cordarone] 200 mg PO DAILY 06/13/22 06/13/22 History Amoxicillin 875 mg PO Q12HR 06/13/22 06/13/22 History Lidocaine 5% Patch [Lidoderm 5% 1 patch TOPICAL DAILY PRN 06/13/22 06/13/22 H istory Patch] Multivitamins, Thera [Multivitamin 1 tab PO DAILY 06/13/22 06/13/22 History (formulary)] Nirmatrelvir/Ritonavir [Paxlovid 1 dose PO DIRECTED 06/13/22 06/13/22 History 150-100 mg Pack (Eua)] Sotalol [Betapace] 80 mg PO BID 06/13/22 06/13/22 History oxyCODONE-APAP 10-325MG [Percocet 1 tab PO Q4HR PRN 06/13/22 06/13/22 History 10-325 mg] predniSONE See Taper PO DIRECTED 06/13/22 06/13/22 History Allergies Allergy/AdvReac Type Severity Reaction Status Date / Time Iodinated Contrast Media AdvReac Unknown Verified 06/13/22 21:03 Physical Exam Vitals: Vital Signs Temp Pulse Pulse Resp BP BP Pulse Ox 06/14/22 08:24 99 06/14/22 04:00 97.8 F 99 21 128/95 06/14/22 02:00 81 06/14/22 00:00 143/88 06/13/22 22:42 100 20 170/88 95 06/13/22 22:00 100 20 161/110 98 06/13/22 21:00 110 H 20 190/96 95 06/13/22 19:00 100 16 164/110 98 06/13/22 18:37 100 20 143/68 98 06/13/22 17:49 75 06/13/22 17:29 100 20 130/65 98 06/13/22 16:07 98 F 102 H 18 141/88 96 Intake and Output 06/13/22 06/14/22 06/14/22 22:59 06:59 14:59 Intake Total 77.078 5.687 Balance 77.078 5.687 Intake: Intake, IV Titration 77.078 5.687 Amount Heparin Sod,Pork in 0.45% 77.078 5.687 NaCl 25,000 unit In 0.45 % NaCl 1 250ml.bag @ 12 UNITS/KG/HR 6.532 mls/hr IV .Q24H [facility] Rx#: [id number] Other: Voiding Method Urinal # Voids 0 Weight 54.431 kg - Constitutional General appearance: no acute distress - Respiratory Respiratory: bilateral: diminished - Cardiovascular Rhythm: regular Results 06/14/22 05:34 06/14/22 05:34 Cardiac Enzymes 06/13/22 06/13/22 06/13/22 Range/Units 17:20 17:20 20:38 AST 34 (17-59) U/L Troponin I 0.947 H* 1.110 H* (0.000-0.034) ng/mL 06/14/22 06/14/22 Range/Units 00:17 05:34 AST 35 (17-59) U/L Troponin I 1.550 H* (0.000-0.034) ng/mL Coagulation 06/13/22 06/14/22 06/14/22 Range/Units 17:20 00:17 05:34 PT 10.2 11.0 (9.0-12.0) sec APTT 24.6 49.3 H (22.0-30.0) sec 06/14/22 Range/Units 05:34 PT (9.0-12.0) sec APTT 37.0 H (22.0-30.0) sec CBC 06/13/22 06/14/22 Range/Units 17:20 05:34 WBC 9.1 6.4 (3.8-10.6) k/uL RBC 4.02 L 3.79 L (4.30-5.90) m/uL Hgb 11.9 L 11.2 L (13.0-17.5) gm/dL Hct 36.7 L 34.9 L (39.0-53.0) % Plt Count 255 248 (150-450) k/uL Comprehensive Metabolic Panel 06/13/22 06/14/22 Range/Units 17:20 05:34 Sodium 138 137 (137-145) mmol/L Potassium 5.3 H 4.5 (3.5-5.1) mmol/L Chloride 108 H 111 H (98-107) mmol/L Carbon Dioxide 20 L 19 L (22-30) mmol/L BUN 20 21 H (9-20) mg/dL Creatinine 1.34 H 1.26 H (0.66-1.25) mg/dL Glucose 113 H 102 H (74-99) mg/dL Calcium 9.1 8.4 (8.4-10.2) mg/dL AST 34 35 (17-59) U/L ALT 20 19 (4-49) U/L Alkaline Phosphatase 78 79 (38-126) U/L Total Protein 6.3 5.7 L (6.3-8.2) g/dL Albumin 3.5 3.1 L (3.5-5.0) g/dL Current Medications Generic Name Dose Route Start Last Admin Trade Name Freq PRN Reason Stop Dose Admin Acetaminophen 650 mg 06/13/22 19:38 Acetaminophen Tab 325 Mg Tab PO Q6HR PRN Mild Pain (1-3)or Fever >100.5 Alprazolam 0.25 mg 06/13/22 19:38 Alprazolam 0.25 Mg Tab PO Q6HR PRN Anxiety Carvedilol 3.125 mg 06/13/22 22:30 06/14/22 06:48 Carvedilol 3.125 Mg Tab PO 3.125 mg BID-W/MEALS [facility] Administration Famotidine 20 mg 06/14/22 09:00 06/14/22 09:25 Famotidine 20 Mg Tab PO 20 mg DAILY [facility] Administration Heparin Sodium (Porcine) 0 unit 06/13/22 18:41 06/14/22 06:45 Heparin Sodium 1,000 Un/Ml (10ml Vl) IV 1,360 unit PER PROTOCOL PRN Administration Low PTT Protocol Hydromorphone HCl 0.5 mg 06/13/22 19:38 06/14/22 09:26 Hydromorphone 0.5 Mg/0.5 Ml Syringe IVP 0.5 mg Q3HR PRN Administration Moderate Pain (Scale 4 to 6) Heparin Sodium/Sodium Chloride 250 mls @ 6.532 mls/hr 06/13/22 18:45 06/14/22 07:25 25,000 unit/ Sodium Chloride IV 14 units/kg/hr .Q24H [facility] 7.62 mls/hr Titration Protocol 12 UNITS/KG/HR Sodium Chloride 1,000 mls @ 50 mls/hr 06/13/22 19:45 06/13/22 21:56 Saline 0.9% IV 50 mls/hr .Q20H [facility] Administration Naloxone HCl 0.2 mg 06/13/22 19:38 Naloxone 0.4 Mg/Ml 1 Ml Vial IV Q2M PRN Opioid Reversal Ondansetron HCl 4 mg 06/13/22 19:38 Ondansetron 4 Mg/2 Ml Vial IVP Q8HR PRN Nausea And Vomiting Intake and Output 06/13/22 06/14/22 06/14/22 22:59 06:59 14:59 Intake Total 77.078 5.687 Balance 77.078 5.687 Intake: Intake, IV Titration 77.078 5.687 Amount Heparin Sod,Pork in 0.45% 77.078 5.687 NaCl 25,000 unit In 0.45 % NaCl 1 250ml.bag @ 12 UNITS/KG/HR 6.532 mls/hr IV .Q24H [facility] Rx#: [id number] Other: Voiding Method Urinal # Voids 0 Weight 54.431 kg 06/14/22 05:34 06/14/22 05:34 Assessment and Plan Assessment: Assessment COVID-19 pneumonia Congestion and diarrhea and cough related to COVID-19 syndrome Evidence of myocardial injury was no evidence of ischemia CAD as described above Ischemic cardiomyopathy History of ventricular tachycardia Status post AICD Multiple comorbid conditions Plan Continue the heparin for additional 24 hours Consider medical treatment fortnightly abnormal troponin unless the patient developed any symptoms of angina/chest discomfort Continue dual antiplatelet therapy along with high intensity statin Obtain an echo to assess for any new wall motion abnormalities Follow-up with the patient
[2022-06-14] MEDS ORDERED: carvediloL 3.125 MG TAB PO STA (10:15)
[2022-06-14] MEDS: CLOPIDOGREL 75 MG TAB PO SCH (10:35)
[2022-06-14] MEDS: ASPIRIN 81 MG PO SCH (10:35)
[2022-06-14] MEDS: FUROSEMIDE 40 MG TAB PO SCH (10:35)
[2022-06-14] MEDS: AMIODARONE 200 MG TAB PO SCH (10:35)
[2022-06-14] MEDS: SOTALOL 80 MG TAB PO SCH ×2 (10:38→22:20)
[2022-06-14] MEDS ORDERED: BENZOCAINE/MENTHOL LOZENG 1 EACH LOZENGE MUCOUS MEM PRN (11:12)
--- NOTE | 2022-06-14 13:33 | P.HPIM ---
History of Present Illness H&P Date: 06/14/22 This is a 76 year old male with medical history of anemia, COPD, hypertension, hyperlipidemia, sleep apnea with CPAP use, history of V. tach, AICD, 3 vessel bypass in 2001, ischemic cardiomyopathy, and hiatal hernia post Ramona fundloplication. Former history of smoking. Presents to the hospital with generalized weakness, cough, shortness of breath worse with activity. Also reports diarrhea ongoing for the last week, fevers. Patient had a positive home covid test on 06/10/22 and has been taking paxlovid which was sent in by his debt counselor without improvement in symptoms. Reports his is also at home with similar symptoms. Chest x-ray shows small pleural effusion which appears new with no obvious heart failure. White count within normal limits at 9.1 and 6.4, hemoglobin is 11.9, patient presents with a creatinine of 1.34, lactic acidosis of 3.1, he does have troponin elevation of 0.947, 1.110 and 1.550 with a proBNP of 84,000. He was given a 2 L fluid bolus in the emergency center. Prior echocardiogram from July of this year showing EF 30 to 35% with moderate pulmonary hypertension. Initially required supplemental oxygen and has been weaned to room air. Lactic acid has normalized, patient reports diarrhea has resolved at this time. Cardiology has been consulted for further evaluation. REVIEW OF SYSTEMS: CONSTITUTIONAL: Reports fever, fatigue HEENT: No recent visual problems or hearing problems. Denied any sore throat. CARDIOVASCULAR: No chest pain, orthopnea, PND, no palpitations, no syncope. PULMONARY: Reports shortness of breath, cough with clear sputum, no hemoptysis. GASTROINTESTINAL: Reports diarrhea, no nausea, no vomiting, no abdominal pain. NEUROLOGICAL: No headaches, no weakness, no numbness. HEMATOLOGICAL: Denies any bleeding or petechiae. GENITOURINARY: Denies any burning micturition, frequency, or urgency. MUSCULOSKELETAL/RHEUMATOLOGICAL: Denies any joint pain, swelling, or any muscle pain. ENDOCRINE: Denies any polyuria or polydipsia. The rest of the 14-point review of systems is negative. PHYSICAL EXAMINATION: GENERAL: The patient is alert and oriented x3, not in any acute distress. Well developed, well nourished. HEENT: Pupils are round and equally reacting to light. EOMI. No scleral icterus. No conjunctival pallor. Normocephalic, atraumatic. No pharyngeal erythema. No thyromegaly. CARDIOVASCULAR: S1 and S2 present. No murmurs, rubs, or gallops. PULMONARY: Chest is clear to auscultation, no wheezing or crackles. ABDOMEN: Soft, nontender, nondistended, normoactive bowel sounds. No palpable organomegaly. MUSCULOSKELETAL: No joint swelling or deformity. EXTREMITIES: No cyanosis, clubbing, or pedal edema. NEUROLOGICAL: Gross neurological examination did not reveal any focal deficits. SKIN: No rashes. Assessment and plan Assessment Acute Covid 19 infection without evidence for pneumonia Cough, shortness of breath, diarrhea secondary to above Troponin elevation without evidence for ischemia on EKG Lactic acidosis Hypertension Hyperlipidemia Chronic kidney disease stage 3 Coronary artery disease status post CABG and PCI Ischemic cardiomyopathy post AICD History of ventricular tachycardia Sleep apnea with CPAP use GI prophylaxis DVT prophylaxis Full Code Plan Continue IV heparin per cardiology Gentle hydration overnight Repeat echocardiogram ordered Home medications have been resumed Check inflammatory markers and procalcitonin Continue supportive care no indications for systemic steroid at this time The impression and plan of care has been dictated by Lori Esteves Nurse Practitioner as directed. Dr. Nitin MD I have performed a history and physical examination and medical decision making of this patient, discussed the same with the dictator, and agree with the dictators assessment and plan as written, documented as a scribe. Based on total visit time, I have performed more than 50% of this visit. Past Medical History Past Medical History: Coronary Artery Disease (CAD), Chest Pain / Angina, COPD, Hyperlipidemia, Hypertension, Myocardial Infarction ([place]), Musculoskeletal Disorder, Osteoarthritis (OA), Prostate Disorder, Sleep Apnea/CPAP/BIPAP Additional Past Medical History / Comment(s): HH, fibromyalgia, anemia, hypogonadism, vtach, NSTEMI 10/20/19, CPAP use, Inogen portable. Kidney stones; l eft flank pain, chronic toni shoulder pain, states has numbness rt arm, recent adm. for chest pain, difficulty swallowing & weight loss Last Myocardial Infarction Date:: 10/20/19 History of Any Multi-Drug Resistant Organisms: None Reported Past Surgical History: Adenoidectomy, AICD, Back Surgery, Cholecystectomy, Coronary Bypass/CABG, Heart Catheterization, Hernia Repair, Orthopedic Surgery, Tonsillectomy Additional Past Surgical History / Comment(s): CABG x3 in 1999, rhinoplasty, ACDF 2, left bunionectomy, Lasik, lipoma from left shoulder 2, colonoscopy 5 years ago, hernia repair. Past Anesthesia/Blood Transfusion Reactions: No Reported Reaction Type of Cardiac Device: AICD Device Placement Date:: 12/12/19 Smoking Status: Former smoker - Past Family History Mother Family Medical History: Cancer, Coronary Artery Disease (CAD) Father Family Medical History: Cancer Brother(s) Family Medical History: Congestive Heart Failure (CHF), Coronary Artery Disease (CAD) Sister(s) Family Medical History: Congestive Heart Failure (CHF) Medications and Allergies Home Medications Medication Instructions Recorded Confirmed Type Aspirin 81 mg PO DAILY chew 10/26/19 06/13/22 Rx Clopidogrel [Plavix] 75 mg PO DAILY #30 tab 10/26/19 06/13/22 Rx Furosemide [Lasix] 40 mg PO DAILY #30 tab 10/26/19 06/13/22 Rx Nitroglycerin Sl Tabs [Nitrostat] 0.4 mg SUBLINGUAL Q5M PRN #25 tab 10/26/19 06/13/22 Rx Vit C/E/Zn/Coppr/Lutein/Zeaxan 1 cap PO BID 12/08/19 06/13/22 History [Preservision Areds 2 Softgel] Atorvastatin [Lipitor] 80 mg PO HS 08/10/21 06/13/22 History DULoxetine HCL [Cymbalta] 60 mg PO DAILY 08/10/21 06/13/22 History Potassium Citrate [Urocit-K] 10 meq PO BID 08/10/21 06/13/22 History carvediloL [Coreg*] 12.5 mg PO BID-W/MEALS #180 tab 08/12/21 06/13/22 Rx lisinopriL [Zestril] 5 mg PO HS #90 tab 08/22/21 06/13/22 Rx Amiodarone [Cordarone] 200 mg PO DAILY 06/13/22 06/13/22 History Amoxicillin 875 mg PO Q12HR 06/13/22 06/13/22 History Lidocaine 5% Patch [Lidoderm 5% 1 patch TOPICAL DAILY PRN 06/13/22 06/13/22 History Patch] Multivitamins, Thera [Multivitamin 1 tab PO DAILY 06/13/22 06/13/22 History (formulary)] Nirmatrelvir/Ritonavir [Paxlovid 1 dose PO DIRECTED 06/13/22 06/13/22 History 150-100 mg Pack (Eua)] Sotalol [Betapace] 80 mg PO BID 06/13/22 06/13/22 History oxyCODONE-APAP 10-325MG [Percocet 1 tab PO Q4HR PRN 06/13/22 06/13/22 History 10-325 mg] predniSONE See Taper PO DIRECTED 06/13/22 06/13/22 History Allergies Allergy/AdvReac Type Severity Reaction Status Date / Time Iodinated Contrast Media AdvReac Unknown Verified 06/13/22 21:03 Physical Exam Vitals: Vital Signs Temp Pulse Pulse Resp BP BP Pulse Ox 06/14/22 08:24 99 06/14/22 04:00 97.8 F 99 21 128/95 06/14/22 02:00 81 06/14/22 00:00 143/88 06/13/22 22:42 100 20 170/88 95 06/13/22 22:00 100 20 161/110 98 06/13/22 21:00 110 H 20 190/96 95 06/13/22 19:00 100 16 164/110 98 06/13/22 18:37 100 20 143/68 98 06/13/22 17:49 75 06/13/22 17:29 100 20 130/65 98 06/13/22 16:07 98 F 102 H 18 141/88 96 Intake and Output 06/13/22 06/14/22 06/14/22 22:59 06:59 14:59 Intake Total 77.078 5.687 Balance 77.078 5.687 Intake: Intake, IV Titration 77.078 5.687 Amount Heparin Sod,Pork in 0.45% 77.078 5.687 NaCl 25,000 unit In 0.45 % NaCl 1 250ml.bag @ 12 UNITS/KG/HR 6.532 mls/hr IV .Q24H [facility] Rx#: [id number] Other: Voiding Method Urinal # Voids 0 Weight 54.431 kg Results CBC & Chem 7: 06/14/22 05:34 06/14/22 05:34 Labs: Abnormal Lab Results - Last 24 Hours (Table) 06/13/22 06/13/22 06/13/22 Range/Units 17:20 17:20 17:20 RBC 4.02 L (4.30-5.90) m/uL Hgb 11.9 L (13.0-17.5) gm/dL Hct 36.7 L (39.0-53.0) % APTT (22.0-30.0) sec Potassium 5.3 H (3.5-5.1) mmol/L Chloride 108 H (98-107) mmol/L Carbon Dioxide 20 L (22-30) mmol/L BUN (9-20) mg/dL Creatinine 1.34 H (0.66-1.25) mg/dL Glucose 113 H (74-99) mg/dL Plasma Lactic Acid Kyle 3.1 H* (0.7-2.0) mmol/L Troponin I (0.000-0.034) ng/mL Total Protein (6.3-8.2) g/dL Albumin (3.5-5.0) g/dL Coronavirus (PCR) (Not Detectd) 06/13/22 06/13/22 06/13/22 Range/Units 17:20 17:20 20:38 RBC (4.30-5.90) m/uL Hgb (13.0-17.5) gm/dL Hct (39.0-53.0) % APTT (22.0-30.0) sec Potassium (3.5-5.1) mmol/L Chloride (98-107) mmol/L Carbon Dioxide (22-30) mmol/L BUN (9-20) mg/dL Creatinine (0.66-1.25) mg/dL Glucose (74-99) mg/dL Plasma Lactic Acid Kyle (0.7-2.0) mmol/L Troponin I 0.947 H* 1.110 H* (0.000-0.034) ng/mL Total Protein (6.3-8.2) g/dL Albumin (3.5-5.0) g/dL Coronavirus (PCR) Detected A (Not Detectd) 06/14/22 06/14/22 06/14/22 Range/Units 00:17 00:17 05:34 RBC 3.79 L (4.30-5.90) m/uL Hgb 11.2 L (13.0-17.5) gm/dL Hct 34.9 L (39.0-53.0) % APTT 49.3 H (22.0-30.0) sec Potassium (3.5-5.1) mmol/L Chloride (98-107) mmol/L Carbon Dioxide (22-30) mmol/L BUN (9-20) mg/dL Creatinine (0.66-1.25) mg/dL Glucose (74-99) mg/dL Plasma Lactic Acid Kyle (0.7-2.0) mmol/L Troponin I 1.550 H* (0.000-0.034) ng/mL Total Protein (6.3-8.2) g/dL Albumin (3.5-5.0) g/dL Coronavirus (PCR) (Not Detectd) 06/14/22 06/14/22 Range/Units 05:34 05:34 RBC (4.30-5.90) m/uL Hgb (13.0-17.5) gm/dL Hct (39.0-53.0) % APTT 37.0 H (22.0-30.0) sec Potassium (3.5-5.1) mmol/L Chloride 111 H (98-107) mmol/L Carbon Dioxide 19 L (22-30) mmol/L BUN 21 H (9-20) mg/dL Creatinine 1.26 H (0.66-1.25) mg/dL Glucose 102 H (74-99) mg/dL Plasma Lactic Acid Kyle (0.7-2.0) mmol/L Troponin I (0.000-0.034) ng/mL Total Protein 5.7 L (6.3-8.2) g/dL Albumin 3.1 L (3.5-5.0) g/dL Coronavirus (PCR) (Not Detectd) Assessment and Plan Time with Patient: Less than 30
[2022-06-14 14:00] LABS: C Reactive Protein 4.2 mg/dL (<1.0)
[2022-06-14] MEDS: DULoxetine HCL 60 MG CAPSULE.DR PO SCH (14:59)
[2022-06-14] MEDS: ZINC SULFATE 220 MG CAP PO SCH (17:17)
[2022-06-14] MEDS: CHOLECALCIFEROL 25 MCG (1000 IU) TABLET PO SCH (17:17)
[2022-06-14] MEDS: carvediloL 12.5 MG TAB PO SCH (18:40)
[2022-06-14 19:54] LABS: Glucose,Whole Blood 111 mg/dL (70-110)
[2022-06-14] MEDS: lisinopriL 5 MG TAB PO SCH (22:21)
[2022-06-14] MEDS: VIT A,C & E-LUTEIN-MINERALS 1 EACH TAB PO SCH (22:21)
[2022-06-14] MEDS: ATORVASTATIN 80 MG TAB PO SCH (22:21)
[2022-06-14] MEDS: POTASSIUM CITRATE 10 MEQ TABLET.ER PO SCH (22:50)
[2022-06-15] MEDS: HEPARIN SOD,PORK IN 0.45% NACL 25,000 UNIT in 0.45% NACL 1 250ML.BAG IV SCH (02:14)
[2022-06-15] MEDS: SODIUM CHLORIDE 0.9% 1,000 ML IV SCH ×3 (02:16→21:33)
[2022-06-15] MEDS: HYDROmorphone 0.5 MG/0.5 ML SYRINGE IVP PRN (05:52)
[2022-06-15] MEDS: carvediloL 12.5 MG TAB PO SCH ×2 (06:57→18:02)
[2022-06-15 07:36] LABS: Calcium 8.5 mg/dL (8.4-10.2); Potassium 5.3 mmol/L (3.5-5.1)
[2022-06-15] MEDS: DULoxetine HCL 60 MG CAPSULE.DR PO SCH (08:36)
[2022-06-15] MEDS: SOTALOL 80 MG TAB PO SCH ×3 (08:37→23:09)
[2022-06-15] MEDS: ZINC SULFATE 220 MG CAP PO SCH (08:37)
[2022-06-15] MEDS: VIT A,C & E-LUTEIN-MINERALS 1 EACH TAB PO SCH ×2 (08:37→21:16)
[2022-06-15] MEDS: AMIODARONE 200 MG TAB PO SCH (08:37)
[2022-06-15] MEDS: FUROSEMIDE 40 MG TAB PO SCH (08:37)
[2022-06-15] MEDS: CLOPIDOGREL 75 MG TAB PO SCH (08:37)
[2022-06-15] MEDS: ASPIRIN 81 MG PO SCH (08:37)
[2022-06-15] MEDS: CHOLECALCIFEROL 25 MCG (1000 IU) TABLET PO SCH (08:37)
[2022-06-15] MEDS: FAMOTIDINE 20 MG TAB PO SCH (08:37)
[2022-06-15] MEDS: HEPARIN SODIUM 1,000 UN/ML (10ML VL) IV PRN (08:37)
[2022-06-15] MEDS: MULTIVITAMINS, THERA 1 EACH TAB PO SCH (08:37)
[2022-06-15] MEDS: oxyCODONE-APAP 10-325MG 1 EACH TAB PO PRN ×2 (09:14→18:02)
[2022-06-15] MEDS: POTASSIUM CITRATE 10 MEQ TABLET.ER PO SCH ×2 (09:20→21:02)
--- NOTE | 2022-06-15 10:29 | P.PN ---
Subjective Progress Note Date: 06/15/22 Principal diagnosis: CAD The patient is a pleasant 76-year-old gentleman who sees Dr. Chisholm irregularly with a past medical history significant for coronary artery disease with prior revascularization in terms off bypass and stenting and the patient underwent stenting of the left main and left circumflex recently prior stenting of the LAD or as well as history of ischemic cardiomyopathy with EF around 40% as well as history of ventricular tachycardia status post AICD as well as multiple comorbid conditions including hypertension and dyslipidemia. He presented to the [facility] because he was not feeling well. For the last few days he has been experiencing generalized weakness and fatigue and lately has been experiencing diarrhea and also has been having fever and chills. He tested positive for "at home and he presented to the hospital where the test was repeated came in to be positive as well. He was admitted for further evaluation. We consulted to see the patient because of abnormal troponin. The EKG showed sinus tachycardia with atrial sensed ventricular paced rhythm. Currently the patient is chest pain- free and he has no chest pain before he presented to the hospital. He has been coughing with mild sputum production has been experiencing fever and chills. Beside that he underwent a chest x-ray which she did not show any acute abnormalities. The rest of the blood work overall came in to be unremarkable beside mildly abnormal kidney function June [id number] The patient was seen this morning. He remains asymptomatic in terms of anginal chest discomfort that he has been coughing and experiencing chest discomfort with cough. No shortness of breath. Hemodynamically he is stable PDA continues to be on dual antiplatelet therapy along with high intensity statin. He continues to be on heparin which I would continue for additional 24 hours. Follow-up on the echocardiogram and further recommendation to follow the echo Objective - Vital Signs Vital signs: Vital Signs Temp 97.7 F 06/15/22 08:00 Pulse 54 L 06/15/22 08:00 Resp 19 06/15/22 08:00 BP 92/50 06/15/22 08:00 Pulse Ox 98 06/15/22 08:00 FiO2 Intake & Output 06/14/22 06/15/22 06/15/22 18:59 06:59 18:59 Intake Total 555.687 623.383 648.895 Output Total 545 275 150 Balance 10.687 348.383 498.895 Weight 63.2 kg Intake: IV 550 600 Sodium Chloride 0.9% 1, 550 600 000 ml @ 50 mls/hr IV . Q20H [facility] Rx#:[id number] Intake, IV Titration 5.687 143.383 48.895 Amount Heparin Sod,Pork in 0.45% 5.687 143.383 48.895 NaCl 25,000 unit In 0.45 % NaCl 1 250ml.bag @ 12 UNITS/KG/HR 6.532 mls/hr IV .Q24H [facility] Rx#: [id number] Oral 480 Output: Urine 545 275 150 Other: Voiding Method Urinal Urinal - Constitutional General appearance: Present: no acute distress - Labs CBC & Chem 7: 06/14/22 05:34 06/15/22 07:03 Labs: Abnormal Lab Results - Last 24 Hours (Table) 06/14/22 06/14/22 06/14/22 Range/Units 11:56 11:58 11:58 APTT 47.5 H (22.0-30.0) sec Potassium (3.5-5.1) mmol/L Chloride (98-107) mmol/L BUN (9-20) mg/dL Creatinine (0.66-1.25) mg/dL POC Glucose (mg/dL) (70-110) mg/dL Troponin I 1.440 H* (0.000-0.034) ng/mL C-Reactive Protein (<1.0) mg/dL Procalcitonin 0.30 H (0.02-0.09) ng/mL 06/14/22 06/14/22 06/14/22 Range/Units 11:58 15:52 19:53 APTT (22.0-30.0) sec Potassium (3.5-5.1) mmol/L Chloride (98-107) mmol/L BUN (9-20) mg/dL Creatinine (0.66-1.25) mg/dL POC Glucose (mg/dL) 111 H (70-110) mg/dL Troponin I 1.640 H* (0.000-0.034) ng/mL C-Reactive Protein 4.2 H (<1.0) mg/dL Procalcitonin (0.02-0.09) ng/mL 01/02/23 01/02/23 Range/Units 07:03 07:03 APTT 32.5 H (22.0-30.0) sec Potassium 5.3 H (3.5-5.1) mmol/L Chloride 109 H (98-107) mmol/L BUN 26 H (9-20) mg/dL Creatinine 1.34 H (0.66-1.25) mg/dL POC Glucose (mg/dL) (70-110) mg/dL Troponin I (0.000-0.034) ng/mL C-Reactive Protein (<1.0) mg/dL Procalcitonin (0.02-0.09) ng/mL Assessment and Plan Assessment: Assessment COVID-19 pneumonia Congestion and diarrhea and cough related to COVID-19 syndrome Evidence of myocardial injury was no evidence of ischemia CAD as described above Ischemic cardiomyopathy History of ventricular tachycardia Status post AICD Multiple comorbid conditions Plan Continue the heparin for additional 24 hours Consider medical treatment fortnightly abnormal troponin unless the patient developed any symptoms of angina/chest discomfort Continue dual antiplatelet therapy along with high intensity statin Obtain an echo to assess for any new wall motion abnormalities Follow-up with the patient
--- NOTE | 2022-06-15 15:23 | P.PN ---
Subjective Progress Note Date: 06/15/22 76 year old male with medical history of anemia, COPD, hypertension, hyperlipidemia, sleep apnea with CPAP use, history of V. tach, AICD, 3 vessel bypass in 2001, ischemic cardiomyopathy, and hiatal hernia post Ramona fundloplication. Former history of smoking. Presents to the hospital with generalized weakness, cough, shortness of breath worse with activity. Also reports diarrhea ongoing for the last week, fevers. Patient had a positive home covid test on 06/10/22 and has been taking paxlovid which was sent in by his terminal gauger without improvement in symptoms. Reports his is also at home with similar symptoms. Chest x-ray shows small pleural effusion which appears new with no obvious heart failure. White count within normal limits at 9.1 and 6.4, hemoglobin is 11.9, patient presents with a creatinine of 1.34, lactic acidosis of 3.1, he does have troponin elevation of 0.947, 1.110 and 1.550 with a proBNP of 84,000. He was given a 2 L fluid bolus in the emergency center. Prior echocardiogram from July of this year showing EF 30 to 35% with moderate pulmonary hypertension. Initially required supplemental oxygen and has been weaned to room air. Lactic acid has normalized, patient reports diarrhea has resolved at this time. Cardiology has been consulted for further evaluation. Objective - Vital Signs Vital signs: Vital Signs Temp 97.4 F L 06/15/22 00:00 Pulse 57 L 06/15/22 00:00 Resp 21 06/15/22 00:00 BP 135/66 06/15/22 00:00 Pulse Ox 98 06/15/22 00:00 FiO2 Intake & Output 06/14/22 06/14/22 06/15/22 06:59 18:59 06:59 Intake Total 77.078 555.687 Output Total 545 100 Balance 77.078 10.687 -100 Intake: IV 550 Sodium Chloride 0.9% 1, 550 000 ml @ 50 mls/hr IV . Q20H [facility] Rx#:[id number] Intake, IV Titration 77.078 5.687 Amount Heparin Sod,Pork in 0.45% 77.078 5.687 NaCl 25,000 unit In 0.45 % NaCl 1 250ml.bag @ 12 UNITS/KG/HR 6.532 mls/hr IV .Q24H [facility] Rx#: [id number] Output: Urine 545 100 Other: Voiding Method Urinal Urinal Urinal # Voids 0 - Exam GENERAL: The patient is alert and oriented x3, not in any acute distress. Well developed, well nourished. HEENT: Pupils are round and equally reacting to light. EOMI. No scleral icterus. No conjunctival pallor. Normocephalic, atraumatic. No pharyngeal erythema. No thyromegaly. CARDIOVASCULAR: S1 and S2 present. No murmurs, rubs, or gallops. PULMONARY: Chest is clear to auscultation, no wheezing or crackles. ABDOMEN: Soft, nontender, nondistended, normoactive bowel sounds. No palpable organomegaly. MUSCULOSKELETAL: No joint swelling or deformity. EXTREMITIES: No cyanosis, clubbing, or pedal edema. NEUROLOGICAL: Gross neurological examination did not reveal any focal deficits. SKIN: No rashes. - Labs CBC & Chem 7: 06/14/22 05:34 06/15/22 07:03 Labs: Abnormal Lab Results - Last 24 Hours (Table) 06/14/22 06/14/22 06/14/22 Range/Units 00:17 00:17 05:34 RBC 3.79 L (4.30-5.90) m/uL Hgb 11.2 L (13.0-17.5) gm/dL Hct 34.9 L (39.0-53.0) % APTT 49.3 H (22.0-30.0) sec Chloride (98-107) mmol/L Carbon Dioxide (22-30) mmol/L BUN (9-20) mg/dL Creatinine (0.66-1.25) mg/dL Glucose (74-99) mg/dL POC Glucose (mg/dL) (70-110) mg/dL Troponin I 1.550 H* (0.000-0.034) ng/mL C-Reactive Protein (<1.0) mg/dL Total Protein (6.3-8.2) g/dL Albumin (3.5-5.0) g/dL Procalcitonin (0.02-0.09) ng/mL 06/14/22 06/14/22 06/14/22 Range/Units 05:34 05:34 11:56 RBC (4.30-5.90) m/uL Hgb (13.0-17.5) gm/dL Hct (39.0-53.0) % APTT 37.0 H (22.0-30.0) sec Chloride 111 H (98-107) mmol/L Carbon Dioxide 19 L (22-30) mmol/L BUN 21 H (9-20) mg/dL Creatinine 1.26 H (0.66-1.25) mg/dL Glucose 102 H (74-99) mg/dL POC Glucose (mg/dL) (70-110) mg/dL Troponin I (0.000-0.034) ng/mL C-Reactive Protein (<1.0) mg/dL Total Protein 5.7 L (6.3-8.2) g/dL Albumin 3.1 L (3.5-5.0) g/dL Procalcitonin 0.30 H (0.02-0.09) ng/mL 06/14/22 06/14/22 06/14/22 Range/Units 11:58 11:58 11:58 RBC (4.30-5.90) m/uL Hgb (13.0-17.5) gm/dL Hct (39.0-53.0) % APTT 47.5 H (22.0-30.0) sec Chloride (98-107) mmol/L Carbon Dioxide (22-30) mmol/L BUN (9-20) mg/dL Creatinine (0.66-1.25) mg/dL Glucose (74-99) mg/dL POC Glucose (mg/dL) (70-110) mg/dL Troponin I 1.440 H* (0.000-0.034) ng/mL C-Reactive Protein 4.2 H (<1.0) mg/dL Total Protein (6.3-8.2) g/dL Albumin (3.5-5.0) g/dL Procalcitonin (0.02-0.09) ng/mL 06/14/22 06/14/22 Range/Units 15:52 19:53 RBC (4.30-5.90) m/uL Hgb (13.0-17.5) gm/dL Hct (39.0-53.0) % APTT (22.0-30.0) sec Chloride (98-107) mmol/L Carbon Dioxide (22-30) mmol/L BUN (9-20) mg/dL Creatinine (0.66-1.25) mg/dL Glucose (74-99) mg/dL POC Glucose (mg/dL) 111 H (70-110) mg/dL Troponin I 1.640 H* (0.000-0.034) ng/mL C-Reactive Protein (<1.0) mg/dL Total Protein (6.3-8.2) g/dL Albumin (3.5-5.0) g/dL Procalcitonin (0.02-0.09) ng/mL Assessment and Plan Assessment: Acute Covid 19 infection without evidence for pneumonia Cough, shortness of breath, diarrhea secondary to above Troponin elevation without evidence for ischemia on EKG Lactic acidosis Hypertension Hyperlipidemia Chronic kidney disease stage 3 Coronary artery disease status post CABG and PCI Ischemic cardiomyopathy post AICD History of ventricular tachycardia Sleep apnea with CPAP use GI prophylaxis DVT prophylaxis Full Code Plan Continue IV heparin per cardiology Gentle hydration overnight Repeat echocardiogram ordered Home medications have been resumed Check inflammatory markers and procalcitonin Continue supportive care no indications for systemic steroid at this time
--- NOTE | 2022-06-15 15:37 | CA ---
Transthoracic Echo Report Name: Trino Brandt Age: 76 Gender: M : 1945 Exam Date: 06/15/2022 13:40 Exam Location: [facility] Ht (in): 69 Wt (lb): 139 Ordering Physician: Georgi Conway MD ([id number]) Attending/Referring Phys: Case Preparer And Liner Camelia Hartmann RDCS Procedure CPT: Indications: nstemi Cardiac Hx: Technical Quality: Fair Contrast 1: Total Dose (mL): Contrast 2: Total Dose (mL): MEASUREMENTS (Male / Female) Normal Values 2D ECHO LV Diastolic Diameter PLAX 6.1 cm 4.2 - 5.9 / 3.9 - 5.3 cm LV Systolic Diameter PLAX 5.5 cm IVS Diastolic Thickness 1.6 cm 0.6 - 1.0 / 0.6 - 0.9 cm LVPW Diastolic Thickness 1.4 cm 0.6 - 1.0 / 0.6 - 0.9 cm LV Relative Wall Thickness 0.5 RV Internal Dim ED PLAX 3.3 cm LA Volume 121.4 cm??? 18 - 58 / 22 - 52 cm??? M-MODE Aortic Root Diameter MM 4.1 cm LA Systolic Diameter MM 4.5 cm LA Ao Ratio MM 1.1 AV Cusp Separation MM 2.2 cm DOPPLER AV Peak Velocity 145.2 cm/s AV Peak Gradient 8.4 mmHg AI Peak Velocity 516.9 cm/s AI Peak Gradient 106.9 mmHg AI Pressure Half Time 510.6 ms LVOT Peak Velocity 107.1 cm/s LVOT Peak Gradient 4.6 mmHg MV Area PHT 2.5 cm??? Mitral E Point Velocity 96.8 cm/s Mitral A Point Velocity 60.8 cm/s Mitral E to A Ratio 1.6 MV Deceleration Time 299.1 ms MV E' Velocity 3.4 cm/s Mitral E to MV E' Ratio 28.2 TR Peak Velocity 306.5 cm/s TR Peak Gradient 37.6 mmHg Right Atrial Pressure 20.0 mmHg Pulmonary Artery Systolic Pressu 57.6 mmHg Right Ventricular Systolic Press 57.6 mmHg FINDINGS Left Ventricle Moderately increased left ventricular wall thickness. Severely reduced global left ventricular systolic function. Left ventricular ejection fraction is estimated at < 20 %. Right Ventricle Mild right ventricular dilatation. Moderate to severe pulmonary hypertension. Right Atrium Normal right atrial size. Catheter/pacemaker wire in the right atrial cavity. Left Atrium Severely increased left atrial volume. Mildly increased left atrial area. Mitral Valve Mitral valve thickened. Mild mitral annular calcification. [id number] mitral regurgitation. Aortic Valve Trileaflet aortic valve. Moderate aortic regurgitation. Tricuspid Valve Moderate tricuspid regurgitation. Pulmonic Valve Trace pulmonic regurgitation. Pericardium No pericardial effusion. Aorta Aortic dilatation. CONCLUSIONS Severely impaired all day function with EF of 20%. Dilated left ventricle. Mild to moderate mitral regurgitation Severe pulmonary hypertension Moderate tricuspid regurgitation Previewed by: Dr. Georgi Conway MD (Electronically Signed) Final Date: 15 June 2022 15:36
[2022-06-15] MEDS: lisinopriL 5 MG TAB PO SCH ×2 (21:16→23:09)
[2022-06-15] MEDS: ATORVASTATIN 80 MG TAB PO SCH (21:16)
[2022-06-16] MEDS: oxyCODONE-APAP 10-325MG 1 EACH TAB PO PRN ×4 (03:33→21:13)
[2022-06-16] MEDS: HEPARIN SOD,PORK IN 0.45% NACL 25,000 UNIT in 0.45% NACL 1 250ML.BAG IV SCH (05:37)
[2022-06-16] MEDS: carvediloL 12.5 MG TAB PO SCH ×2 (06:17→16:15)
[2022-06-16 07:18] LABS: Calcium 8.2 mg/dL (8.4-10.2); Potassium 4.9 mmol/L (3.5-5.1)
[2022-06-16] MEDS: VIT A,C & E-LUTEIN-MINERALS 1 EACH TAB PO SCH ×2 (09:05→21:12)
[2022-06-16] MEDS: ZINC SULFATE 220 MG CAP PO SCH (09:05)
[2022-06-16] MEDS: DULoxetine HCL 60 MG CAPSULE.DR PO SCH (09:05)
[2022-06-16] MEDS: FAMOTIDINE 20 MG TAB PO SCH (09:05)
[2022-06-16] MEDS: CLOPIDOGREL 75 MG TAB PO SCH (09:05)
[2022-06-16] MEDS: AMIODARONE 200 MG TAB PO SCH (09:06)
[2022-06-16] MEDS: CHOLECALCIFEROL 25 MCG (1000 IU) TABLET PO SCH (09:06)
[2022-06-16] MEDS: POTASSIUM CITRATE 10 MEQ TABLET.ER PO SCH ×2 (09:06→21:12)
[2022-06-16] MEDS: ASPIRIN 81 MG PO SCH (09:06)
[2022-06-16] MEDS: MULTIVITAMINS, THERA 1 EACH TAB PO SCH (09:06)
[2022-06-16] MEDS: FUROSEMIDE 40 MG TAB PO SCH (09:06)
[2022-06-16] MEDS: SOTALOL 80 MG TAB PO SCH ×2 (09:07→21:12)
--- NOTE | 2022-06-16 10:00 | P.PN ---
Subjective Progress Note Date: 06/16/22 The patient is a 76-year-old male who is currently admitted to the hospital with acute COVID-19 infection. Cardiology was consulted with his known cardiac history including coronary artery disease, ischemic cardiomyopathy and ventricular tachycardia. Echocardiogram reveals LV function at 20%, which is re duced from his previous 45%. No new wall motion abnormalities. He also has severe pulmonary hypertension and moderate valvular disease. GENERAL: Well-appearing, well-nourished and in no acute distress. VITALS: Blood pressure 107/56, SpO2 99% on 3 L nasal cannula, pulse 55, temp 97.8F, respiratory rate 13 TELEMETRY: Sinus rhythm to sinus bradycardia overnight LABS: Sodium 136, potassium 4.9, BUN 28, creatinine 1.8 IMPRESSION: Acute COVID-19 infection History of ischemic cardiomyopathy History of coronary artery disease Evidence of myocardial injury without evidence of ischemia History of ventricular tachycardia PLAN: Continue supportive treatment No further recommendations from the cardiac standpoint. I am dictating on behalf of Dr Hunter Perez's history/physical and assessment /plan. Objective - Vital Signs Vital signs: Vital Signs Temp 97.8 F 06/16/22 08:00 Pulse 55 L 06/16/22 08:00 Resp 13 06/16/22 08:00 BP 107/56 06/16/22 08:00 Pulse Ox 99 06/16/22 08:00 FiO2 Intake & Output 06/15/22 06/16/22 06/16/22 18:59 06:59 18:59 Intake Total 1348.895 434.005 Output Total 275 425 Balance 1073.895 9.005 Weight 65.8 kg Intake: IV 1000 Sodium Chloride 0.9% 1, 1000 000 ml @ 50 mls/hr IV . Q20H [facility] Rx#:[id number] Intake, IV Titration 48.895 194.005 Amount Heparin Sod,Pork in 0.45% 48.895 194.005 NaCl 25,000 unit In 0.45 % NaCl 1 250ml.bag @ 12 UNITS/KG/HR 6.532 mls/hr IV .Q24H [facility] Rx#: [id number] Oral 300 240 Output: Urine 275 425 Other: Voiding Method Urinal Urinal Urinal - Labs CBC & Chem 7: 06/14/22 05:34 06/16/22 06:17 Labs: Abnormal Lab Results - Last 24 Hours (Table) 06/15/22 06/16/22 06/16/22 Range/Units 14:46 06:17 06:17 APTT 57.4 H 43.5 H (22.0-30.0) sec Sodium 136 L (137-145) mmol/L Chloride 109 H (98-107) mmol/L BUN 28 H (9-20) mg/dL Creatinine 1.30 H (0.66-1.25) mg/dL Calcium 8.2 L (8.4-10.2) mg/dL
[2022-06-16] MEDS: SODIUM CHLORIDE 0.9% 1,000 ML IV SCH (16:46)
--- NOTE | 2022-06-16 18:32 | P.PN ---
Subjective Progress Note Date: 06/16/22 Principal diagnosis: Acute Covid 19 infection without evidence for pneumonia Troponin elevation without evidence for ischemia on EKG Lactic acidosis 76 year old male with medical history of anemia, COPD, hypertension, hyperlipidemia, sleep apnea with CPAP use, history of V. tach, AICD, 3 vessel bypass in 2001, ischemic cardiomyopathy, and hiatal hernia post Ramona fundloplication. Former history of smoking. Presents to the hospital with generalized weakness, cough, shortness of breath worse with activity. Also reports diarrhea ongoing for the last week, fevers. Patient had a positive home covid test on 06/10/22 and has been taking paxlovid which was sent in by his [employer]auffe[employer] without improvement in symptoms. Reports his is also at home with similar symptoms. Chest x-ray shows small pleural effusion which appears new with no obvious heart failure. White count within normal limits at 9.1 and 6.4, hemoglobin is 11.9, patient presents with a creatinine of 1.34, lactic acidosis of 3.1, he does have troponin elevation of 0.947, 1.110 and 1.550 with a proBNP of 84,000. He was given a 2 L fluid bolus in the emergency center. Prior echocardiogram from July of this year showing EF 30 to 35% with moderate pulmonary hypertension. Initially required supplemental oxygen and has been weaned to room air. Lactic acid has normalized, patient reports diarrhea has resolved at this time. Cardiology has been consulted for further evaluation. 24 hour interval change 06/16/2022 76-year-old male who is currently admitted to the hospital with acute COVID-19 infection -- Echocardiogram reveals LV function at 20%, which is reduced from his previous 45%. No new wall motion abnormalities. He also has severe pulmonary hypertension and moderate valvular disease. VITALS:107/56, SpO2 99% on 3 L nasal cannula, pulse 55, temp 97.8F, respiratory rate 13 Sodium 136, potassium 4.9, BUN 28, creatinine 1.8 Continue supportive treatment Objective - Vital Signs Vital signs: Vital Signs Temp 97.8 F 06/16/22 08:00 Pulse 55 L 06/16/22 08:00 Resp 13 06/16/22 08:00 BP 107/56 06/16/22 08:00 Pulse Ox 99 06/16/22 08:00 FiO2 Intake & Output 06/15/22 06/16/22 06/16/22 18:59 06:59 18:59 Intake Total 1348.895 434.005 Output Total 275 425 Balance 1073.895 9.005 Weight 65.8 kg Intake: IV 1000 Sodium Chloride 0.9% 1, 1000 000 ml @ 50 mls/hr IV . Q20H [facility] Rx#:[id number] Intake, IV Titration 48.895 194.005 Amount Heparin Sod,Pork in 0.45% 48.895 194.005 NaCl 25,000 unit In 0.45 % NaCl 1 250ml.bag @ 12 UNITS/KG/HR 6.532 mls/hr IV .Q24H [facility] Rx#: [id number] Oral 300 240 Output: Urine 275 425 Other: Voiding Method Urinal Urinal Urinal - Exam GENERAL: The patient is alert and oriented x3, not in any acute distress. Well developed, well nourished. HEENT: Pupils are round and equally reacting to light. EOMI. No scleral icterus. No conjunctival pallor. Normocephalic, atraumatic. No pharyngeal erythema. No thyromegaly. CARDIOVASCULAR: S1 and S2 present. No murmurs, rubs, or gallops. PULMONARY: Chest is clear to auscultation, no wheezing or crackles. ABDOMEN: Soft, nontender, nondistended, normoactive bowel sounds. No palpable organomegaly. MUSCULOSKELETAL: No joint swelling or deformity. EXTREMITIES: No cyanosis, clubbing, or pedal edema. NEUROLOGICAL: Gross neurological examination did not reveal any focal deficits. SKIN: No rashes. - Labs CBC & Chem 7: 06/14/22 05:34 06/16/22 06:17 Labs: Abnormal Lab Results - Last 24 Hours (Table) 06/15/22 06/16/22 06/16/22 Range/Units 14:46 06:17 06:17 APTT 57.4 H 43.5 H (22.0-30.0) sec Sodium 136 L (137-145) mmol/L Chloride 109 H (98-107) mmol/L BUN 28 H (9-20) mg/dL Creatinine 1.30 H (0.66-1.25) mg/dL Calcium 8.2 L (8.4-10.2) mg/dL Assessment and Plan Assessment: Acute Covid 19 infection without evidence for pneumonia Cough, shortness of breath, diarrhea secondary to above Troponin elevation without evidence for ischemia on EKG Lactic acidosis Hypertension Hyperlipidemia Chronic kidney disease stage 3 Coronary artery disease status post CABG and PCI Ischemic cardiomyopathy post AICD History of ventricular tachycardia Sleep apnea with CPAP use GI prophylaxis DVT prophylaxis Full Code Plan Continue IV heparin per cardiology Gentle hydration overnight Repeat echocardiogram ordered Home medications have been resumed Check inflammatory markers and procalcitonin Continue supportive care no indications for systemic steroid at this time
[2022-06-16] MEDS: lisinopriL 5 MG TAB PO SCH (21:13)
[2022-06-16] MEDS: ATORVASTATIN 80 MG TAB PO SCH (21:13)
[2022-06-17] MEDS: oxyCODONE-APAP 10-325MG 1 EACH TAB PO PRN ×4 (01:45→18:22)
[2022-06-17] MEDS: carvediloL 12.5 MG TAB PO SCH ×2 (07:06→16:09)
[2022-06-17] MEDS: HEPARIN SOD,PORK IN 0.45% NACL 25,000 UNIT in 0.45% NACL 1 250ML.BAG IV SCH (07:18)
[2022-06-17 07:43] LABS: HCT 37.1 % (39.0-53.0); HGB 11.6 gm/dL (13.0-17.5); Hypochromasia Marked; MCH 29.8 pg (25.0-35.0); MCHC 31.4 g/dL (31.0-37.0); MCV 94.9 fL (80.0-100.0); Mean Platelet Volume 9.5; Platelet Count 242 k/uL (150-450); RDW 15.7 % (11.5-15.5); WBC 7.2 k/uL (3.8-10.6)
[2022-06-17 08:14] LABS: Calcium 8.5 mg/dL (8.4-10.2); Potassium 5.4 mmol/L (3.5-5.1)
[2022-06-17] MEDS: POTASSIUM CITRATE 10 MEQ TABLET.ER PO SCH ×2 (08:38→20:09)
[2022-06-17] MEDS: ASPIRIN 81 MG PO SCH (08:42)
[2022-06-17] MEDS: FAMOTIDINE 20 MG TAB PO SCH (08:42)
[2022-06-17] MEDS: SOTALOL 80 MG TAB PO SCH ×2 (08:42→20:26)
[2022-06-17] MEDS: CHOLECALCIFEROL 25 MCG (1000 IU) TABLET PO SCH (08:42)
[2022-06-17] MEDS: AMIODARONE 200 MG TAB PO SCH (08:42)
[2022-06-17] MEDS: MULTIVITAMINS, THERA 1 EACH TAB PO SCH (08:42)
[2022-06-17] MEDS: DULoxetine HCL 60 MG CAPSULE.DR PO SCH (08:42)
[2022-06-17] MEDS: FUROSEMIDE 40 MG TAB PO SCH ×2 (08:42→20:07)
[2022-06-17] MEDS: CLOPIDOGREL 75 MG TAB PO SCH (08:42)
[2022-06-17] MEDS: VIT A,C & E-LUTEIN-MINERALS 1 EACH TAB PO SCH ×2 (08:43→20:08)
[2022-06-17] MEDS: ZINC SULFATE 220 MG CAP PO SCH (08:43)
[2022-06-17] MEDS: HEPARIN SODIUM 1,000 UN/ML (10ML VL) IV PRN (08:48)
--- NOTE | 2022-06-17 09:16 | P.PN ---
Subjective Progress Note Date: 06/17/22 The patient is a 76-year-old male who is currently admitted to the hospital with acute COVID-19 infection. Cardiology was consulted with his known cardiac history including coronary artery disease, ischemic cardiomyopathy and ventricular tachycardia. Echocardiogram reveals LV function at 20%, which is re duced from his previous 45%. No new wall motion abnormalities. He also has severe pulmonary hypertension and moderate valvular disease. GENERAL: Well-appearing, well-nourished and in no acute distress. NECK: Supple without JVD or thyromegaly. LUNGS: Breath sounds diminished to auscultation bilaterally. Respiration equal and unlabored. No wheezes, rales or rhonchi. HEART: Regular rate and rhythm without murmurs, rubs or gallops. S1 and S2 heard. EXTREMITIES: Normal range of motion, no edema. No clubbing or cyanosis. Peripheral pulses intact and strong. VITALS: Blood pressure 109/56, pulse 53, respiratory rate 15, oxygen 96% TELEMETRY: Sinus rhythm to sinus bradycardia overnight LABS: WBC 7.2, hemoglobin 11.6, hematocrit 37.1, platelet 242, sodium 136, potassium 5.4, BUN 26, creatinine 1.21, BNP 22,600 IMPRESSION: Acute COVID-19 infection Acute congestive heart failure History of ischemic cardiomyopathy History of coronary artery disease Evidence of myocardial injury without evidence of ischemia History of ventricular tachycardia PLAN: Discontinue IV fluids Increase furosemide to 40 mg twice daily Further recommendations based on clinical course I am dictating on behalf of Dr Hunter Perez's history/physical and assessment/plan. Objective Objective - Vital Signs Vital signs: Vital Signs Temp 97.5 F L 06/17/22 00:00 Pulse 49 L 06/17/22 05:50 Resp 19 06/17/22 05:50 BP 132/68 06/17/22 05:50 Pulse Ox 98 06/17/22 05:50 FiO2 Intake & Output 06/16/22 06/17/22 06/17/22 18:59 06:59 18:59 Intake Total 450 900 251.528 Output Total 1010 400 Balance -560 500 251.528 Weight 66 kg Intake: IV 200 300 Sodium Chloride 0.9% 1, 200 300 000 ml @ 50 mls/hr IV . Q20H [facility] Rx#:[id number] Intake, IV Titration 251.528 Amount Heparin Sod,Pork in 0.45% 251.528 NaCl 25,000 unit In 0.45 % NaCl 1 250ml.bag @ 12 UNITS/KG/HR 6.532 mls/hr IV .Q24H [facility] Rx#: [id number] Oral 250 600 Output: Urine 1010 400 Other: Voiding Method Urinal Urinal - Labs CBC & Chem 7: 06/17/22 07:15 06/17/22 07:15 Labs: Abnormal Lab Results - Last 24 Hours (Table) 06/17/22 06/17/22 06/17/22 Range/Units 07:15 07:15 07:15 RBC 3.90 L (4.30-5.90) m/uL Hgb 11.6 L (13.0-17.5) gm/dL Hct 37.1 L (39.0-53.0) % RDW 15.7 H (11.5-15.5) % APTT 38.7 H (22.0-30.0) sec Sodium 136 L (137-145) mmol/L Potassium 5.4 H (3.5-5.1) mmol/L Chloride 108 H (98-107) mmol/L BUN 26 H (9-20) mg/dL
[2022-06-17] MEDS: HYDROmorphone 0.5 MG/0.5 ML SYRINGE IVP PRN ×2 (14:14→22:18)
--- NOTE | 2022-06-17 15:07 | P.PN ---
Subjective Progress Note Date: 06/17/22 Principal diagnosis: Acute Covid 19 infection without evidence for pneumonia Troponin elevation without evidence for ischemia on EKG Lactic acidosis 76 year old male with medical history of anemia, COPD, hypertension, hyperlipidemia, sleep apnea with CPAP use, history of V. tach, AICD, 3 vessel bypass in 2001, ischemic cardiomyopathy, and hiatal hernia post Ramona fundloplication. Former history of smoking. Presents to the hospital with generalized weakness, cough, shortness of breath worse with activity. Also reports diarrhea ongoing for the last week, fevers. Patient had a positive home covid test on 06/10/22 and has been taking paxlovid which was sent in by his solution lead without improvement in symptoms. Reports his is also at home with similar symptoms. Chest x-ray shows small pleural effusion which appears new with no obvious heart failure. White count within normal limits at 9.1 and 6.4, hemoglobin is 11.9, patient presents with a creatinine of 1.34, lactic acidosis of 3.1, he does have troponin elevation of 0.947, 1.110 and 1.550 with a proBNP of 84,000. He was given a 2 L fluid bolus in the emergency center. Prior echocardiogram from July of this year showing EF 30 to 35% with moderate pulmonary hypertension. Initially required supplemental oxygen and has been weaned to room air. Lactic acid has normalized, patient reports diarrhea has resolved at this time. Cardiology has been consulted for further evaluation. 24 hour interval change 06/17/2022 76-year-old male who is currently admitted to the hospital with acute COVID-19 infection and acute exacerbation of CHF -- Patient is seen and evaluated and discussed with nursing staff; remains weak and lethargic; denies any chest pain -- Echocardiogram reveals LV function at 20%, which is reduced from his previous 45%. No new wall motion abnormalities. He also has severe pulmonary hypertension and moderate valvular disease. VITALS:107/56, SpO2 99% on 3 L nasal cannula, Blood pressure 109/56, pulse 53, respiratory rate 15, oxygen 96% WBC 7.2, hemoglobin 11.6, hematocrit 37.1, platelet 242, sodium 136, potassium 5.4, BUN 26, creatinine 1.21, BNP 22,600 Continue supportive treatment Objective - Vital Signs Vital signs: Vital Signs Temp 97.8 F 06/17/22 08:00 Pulse 53 L 06/17/22 09:00 Resp 15 06/17/22 09:00 BP 109/56 06/17/22 09:00 Pulse Ox 96 06/17/22 09:00 FiO2 Intake & Output 06/16/22 06/17/22 06/17/22 18:59 06:59 18:59 Intake Total 450 900 251.528 Output Total 1010 400 100 Balance -560 500 151.528 Weight 66 kg Intake: IV 200 300 Sodium Chloride 0.9% 1, 200 300 000 ml @ 50 mls/hr IV . Q20H [facility] Rx#:[id number] Intake, IV Titration 251.528 Amount Heparin Sod,Pork in 0.45% 251.528 NaCl 25,000 unit In 0.45 % NaCl 1 250ml.bag @ 12 UNITS/KG/HR 6.532 mls/hr IV .Q24H [facility] Rx#: [id number] Oral 250 600 Output: Urine 1010 400 100 Other: Voiding Method Urinal Urinal - Exam GENERAL: The patient is alert and oriented x3, not in any acute distress. Well developed, well nourished. HEENT: Pupils are round and equally reacting to light. EOMI. No scleral icterus. No conjunctival pallor. Normocephalic, atraumatic. No pharyngeal erythema. No thyromegaly. CARDIOVASCULAR: S1 and S2 present. No murmurs, rubs, or gallops. PULMONARY: Chest is clear to auscultation, no wheezing or crackles. ABDOMEN: Soft, nontender, nondistended, normoactive bowel sounds. No palpable organomegaly. MUSCULOSKELETAL: No joint swelling or deformity. EXTREMITIES: No cyanosis, clubbing, or pedal edema. NEUROLOGICAL: Gross neurological examination did not reveal any focal deficits. SKIN: No rashes. - Labs CBC & Chem 7: 06/17/22 07:15 06/17/22 07:15 Labs: Abnormal Lab Results - Last 24 Hours (Table) 06/17/22 06/17/22 06/17/22 Range/Units 07:15 07:15 07:15 RBC 3.90 L (4.30-5.90) m/uL Hgb 11.6 L (13.0-17.5) gm/dL Hct 37.1 L (39.0-53.0) % RDW 15.7 H (11.5-15.5) % APTT 38.7 H (22.0-30.0) sec Sodium 136 L (137-145) mmol/L Potassium 5.4 H (3.5-5.1) mmol/L Chloride 108 H (98-107) mmol/L BUN 26 H (9-20) mg/dL Assessment and Plan Assessment: Acute Covid 19 infection without evidence for pneumonia Cough, shortness of breath, diarrhea secondary to above Troponin elevation without evidence for ischemia on EKG Lactic acidosis Hypertension Hyperlipidemia Chronic kidney disease stage 3 Coronary artery disease status post CABG and PCI Ischemic cardiomyopathy post AICD History of ventricular tachycardia Sleep apnea with CPAP use GI prophylaxis DVT prophylaxis Full Code Plan Continue IV heparin per cardiology Gentle hydration overnight Repeat echocardiogram ordered Home medications have been resumed Check inflammatory markers and procalcitonin Continue supportive care no indications for systemic steroid at this time
[2022-06-17] MEDS: ATORVASTATIN 80 MG TAB PO SCH (20:08)
[2022-06-17] MEDS: lisinopriL 5 MG TAB PO SCH (20:08)
[2022-06-17] MEDS ORDERED: TEMAZEPAM 15 MG CAP PO PRN (22:12)
[2022-06-18] MEDS: HEPARIN SOD,PORK IN 0.45% NACL 25,000 UNIT in 0.45% NACL 1 250ML.BAG IV SCH (04:50)
[2022-06-18] MEDS: carvediloL 12.5 MG TAB PO SCH ×2 (06:24→17:11)
[2022-06-18] MEDS: CHOLECALCIFEROL 25 MCG (1000 IU) TABLET PO SCH (08:26)
[2022-06-18] MEDS: FAMOTIDINE 20 MG TAB PO SCH (08:26)
[2022-06-18] MEDS: ASPIRIN 81 MG PO SCH (08:26)
[2022-06-18] MEDS: FUROSEMIDE 40 MG TAB PO SCH ×2 (08:26→20:43)
[2022-06-18] MEDS: DULoxetine HCL 60 MG CAPSULE.DR PO SCH (08:26)
[2022-06-18] MEDS: CLOPIDOGREL 75 MG TAB PO SCH (08:26)
[2022-06-18] MEDS: AMIODARONE 200 MG TAB PO SCH (08:26)
[2022-06-18] MEDS: ZINC SULFATE 220 MG CAP PO SCH (08:26)
[2022-06-18] MEDS: MULTIVITAMINS, THERA 1 EACH TAB PO SCH (08:26)
[2022-06-18] MEDS: POTASSIUM CITRATE 10 MEQ TABLET.ER PO SCH ×2 (08:27→23:33)
[2022-06-18 09:44] LABS: Basophils % (A) 1 %; Eosinophils # (A) 0.2 k/uL (0-0.7); Eosinophils % (A) 3 %; HCT 37.5 % (39.0-53.0); HGB 11.9 gm/dL (13.0-17.5); Hypochromasia Moderate; Lymphocytes # (A) 1.3 k/uL (1.0-4.8); Lymphocytes % (A) 17 %; MCH 29.7 pg (25.0-35.0); MCHC 31.7 g/dL (31.0-37.0); MCV 93.7 fL (80.0-100.0); Mean Platelet Volume 10.1; Monocytes # (A) 0.6 k/uL (0-1.0); Monocytes % (A) 8 %; Neutrophils # (A) 5.4 k/uL (1.3-7.7); Neutrophils % (A) 70 %; Platelet Count 233 k/uL (150-450); RBC 4.01 m/uL (4.30-5.90); RDW 15.2 % (11.5-15.5); WBC 7.7 k/uL (3.8-10.6)
[2022-06-18 10:10] LABS: C Reactive Protein 1.4 mg/dL (<1.0); Calcium 8.8 mg/dL (8.4-10.2); Potassium 4.4 mmol/L (3.5-5.1)
[2022-06-18] MEDS ORDERED: MELATONIN 5 MG TABLET PO PRN (10:31)
--- NOTE | 2022-06-18 10:39 | P.PN ---
Subjective From records 76 year old male with medical history of anemia, COPD, hypertension, hyperlipidemia, sleep apnea with CPAP use, history of V. tach, AICD, 3 vessel bypass in 2001, ischemic cardiomyopathy, and hiatal hernia post Ramona fundloplication. Former history of smoking. Presents to the hospital with generalized weakness, cough, shortness of breath worse with activity. Also reports diarrhea ongoing for the last week, fevers. Patient had a positive home covid test on 06/10/22 and has been taking paxlovid which was sent in by his retail sales director without improvement in symptoms. Reports his is also at home with similar symptoms. Chest x-ray shows small pleural effusion which appears new with no obvious heart failure. White count within normal limits at 9.1 and 6.4, hemoglobin is 11.9, patient presents with a creatinine of 1.34, lactic acidosis of 3.1, he does have troponin elevation of 0.947, 1.110 and 1.550 with a proBNP of 84,000. He was given a 2 L fluid bolus in the emergency center. Prior echocardiogram from July of this year showing EF 30 to 35% with moderate pulmonary hypertension. Initially required supplemental oxygen and has been weaned to room air. Lactic acid has normalized, patient reports diarrhea has resolved at this time. Cardiology has been consulted for further evaluation. 24 hour interval change 06/17/2022 76-year-old male who is currently admitted to the hospital with acute COVID-19 infection and acute exacerbation of CHF -- Patient is seen and evaluated and discussed with nursing staff; remains weak and lethargic; denies any chest pain -- Echocardiogram reveals LV function at 20%, which is reduced from his previous 45%. No new wall motion abnormalities. He also has severe pulmonary hypertension and moderate valvular disease. VITALS:107/56, SpO2 99% on 3 L nasal cannula, Blood pressure 109/56, pulse 53, respiratory rate 15, oxygen 96% WBC 7.2, hemoglobin 11.6, hematocrit 37.1, platelet 242, sodium 136, potassium 5.4, BUN 26, creatinine 1.21, BNP 22,600 Continue supportive treatment 06/18/1942 Patient admitted with respiratory symptoms related to Covid infection although he has also very low ejection fraction less than 20% and there is evidence of an STEMI with elevated troponin and patient been followed closely by retail sales director team and he is currently on heparin drip Currently he is breathing looks okay as he states however he still have signific ant coughing and chest pain with coughing. He denies any diarrhea but he feels very weak. Heart rate is in the 50s, currently 51, is 92% on 2 L oxygen prior. He still mildly tachypneic at 22. He is saturating 90s on 4 L oxygen via nasal cannula, at home he states he was also on 4 L. Priorcalcitonin is slightly elevated at 0.30. We going to add doxycycline 5 days. ProBNP is also elevated, his on oral Lasix 40 mg twice daily and he is on negative fluid balance. We will add fluid restriction. He is also on aspirin and Plavix as well as heparin drip. Patient states that usually at baseline he uses a cane and he can walk for short distances but now he is feeling weaker. Also has been complaining of from urine dribbling, order bladder scan 1 and urine analysis Objective - Vital Signs Vital signs: Vital Signs Temp 97.4 F L 06/18/22 04:00 Pulse 50 L 06/18/22 04:00 Resp 16 06/18/22 04:00 BP 125/73 06/18/22 04:00 Pulse Ox 100 06/18/22 04:00 FiO2 Intake & Output 06/17/22 06/18/22 06/18/22 18:59 06:59 18:59 Intake Total 651.528 707.185 Output Total 600 900 Balance 51.528 -192.815 Intake: IV 400 Sodium Chloride 0.9% 1, 400 000 ml @ 50 mls/hr IV . Q20H GORDY Rx#:[id number] Intake, IV Titration 251.528 207.185 Amount Heparin Sod,Pork in 0.45% 251.528 207.185 NaCl 25,000 unit In 0.45 % NaCl 1 250ml.bag @ 12 UNITS/KG/HR 6.532 mls/hr IV .Q24H GORDY Rx#: [id number] Oral 500 Output: Urine 600 900 Other: Voiding Method Urinal Urinal # Voids 4 - Exam GENERAL: The patient is alert and oriented x3, not in any acute distress. Well developed, well nourished. HEENT: Pupils are round and equally reacting to light. EOMI. No scleral icterus. No conjunctival pallor. Normocephalic, atraumatic. No pharyngeal erythema. No thyromegaly. CARDIOVASCULAR: S1 and S2 present. No murmurs, rubs, or gallops. -PULMONARY: Chest is clear to auscultation, no wheezing. Started bilateral rotation ABDOMEN: Soft, nontender, nondistended, normoactive bowel sounds. No palpable organomegaly. MUSCULOSKELETAL: No joint swelling or deformity. EXTREMITIES: No cyanosis, clubbing, or pedal edema. NEUROLOGICAL: Gross neurological examination did not reveal any focal deficits. SKIN: No rashes. no petechiae. - Labs CBC & Chem 7: 06/18/22 08:07 06/18/22 08:07 Labs: Abnormal Lab Results - Last 24 Hours (Table) 06/17/22 06/18/22 06/18/22 Range/Units 14:17 08:07 08:07 RBC (4.30-5.90) m/uL Hgb (13.0-17.5) gm/dL Hct (39.0-53.0) % APTT 63.0 H 35.4 H (22.0-30.0) sec BUN 25 H (9-20) mg/dL Creatinine 1.26 H (0.66-1.25) mg/dL C-Reactive Protein 1.4 H (<1.0) mg/dL 06/18/22 Range/Units 08:07 RBC 4.01 L (4.30-5.90) m/uL Hgb 11.9 L (13.0-17.5) gm/dL Hct 37.5 L (39.0-53.0) % APTT (22.0-30.0) sec BUN (9-20) mg/dL Creatinine (0.66-1.25) mg/dL C-Reactive Protein (<1.0) mg/dL Assessment and Plan Assessment: Acute Covid 19 infection without evidence for pneumonia , possible some evidence of tracheobronchitis, start doxycycline in order sputum culture Possible non-STEMI Acute on chronic cardiomyopathy, ischemic, ejection fraction less than 20% Lactic acidosis Hypertension Hyperlipidemia Chronic kidney disease stage 3 Chronic hypoxic respiratory failure Generalized weakness Coronary artery disease status post CABG and PCI Ischemic cardiomyopathy post AICD History of ventricular tachycardia Sleep apnea with CPAP use Plan: Plan Continue IV heparin per cardiology Continue on aspirin and Plavix, both from home with retail sales director team recomm endation No intravenous Fluids, continue with oral Lasix Check bladder scan, urine analysis Start doxycycline 5 days Labs and medication were reviewed.. Continue same treatment. Continue with symptomatic treatment. Resume home medication. Monitor labs and vitals. DVT and GI prophylaxis. Further recommendations as per clinical course of the patient DVT prophylaxis: heparin GI Prophylaxis: Pepcid PT/OT: Pending Prognosis is guarded
[2022-06-18] MEDS: HEPARIN SODIUM 1,000 UN/ML (10ML VL) IV PRN (11:15)
[2022-06-18 11:51] VITALS: BMI 21.4
[2022-06-18 12:04] LABS: Appearance,Urine Clear (Clear); Bilirubin,Urine Negative (Negative); Blood,Urine Negative (Negative); Color,Urine Light Yellow; Glucose,Urine (UA) Negative (Negative); Ketones,Urine Negative (Negative); Leukocyte Esterase,Urine Negative (Negative); Nitrite,Urine Negative (Negative); Protein,Urine Negative (Negative); Specific Gravity,Urine 1.007 (1.001-1.035); Urobilinogen,Urine <2.0 mg/dL (<2.0)
[2022-06-18] MEDS: VIT A,C & E-LUTEIN-MINERALS 1 EACH TAB PO SCH ×2 (12:10→23:33)
[2022-06-18] MEDS: DOXYCYCLINE 100 MG CAP PO SCH ×2 (12:10→20:43)
[2022-06-18] MEDS: SOTALOL 80 MG TAB PO SCH ×2 (12:10→23:33)
[2022-06-18] MEDS: ASCORBIC ACID 500 MG TAB PO SCH (12:10)
--- NOTE | 2022-06-18 12:15 | CDI ---
Documentation Clarification Form Date: 06/18/2022 11:51:06 AM From: Shanelle Waterman RN, CCDS Admit Date: 06/13/2022 8:03:00 PM Patient Name: Trino Brandt Visit Number: [id number] Discharge Date: ATTENTION: The Clinical Documentation Specialists (CDI) and [facility] Coding Staff appreciate your assistance in clarifying documentation. Please respond to the clarification below the line at the bottom and electronically sign. The CDI & [facility] Coding staff will review the response and follow-up if needed. Please note: Queries are made part of the Legal Health Record. If you have any questions, please contact the author of this message via ITS. Dr. Hunter Perez Your patient has the documented diagnosis of unspecified acute congestive heart failure in the progress notes on 06/17/22. Additional information regarding the [type of heart failure is requested. History/Risk Factors: Ischemic cardiomyopathy, coronary artery disease, COPD, Hypertension, ID Clinical Indicators: 76-year-old male present with complaints on increasing weakness. He tested positive for Covid on 06-10-22. 06/13 VS/Pulse OX: 141/88 102 18 98 96 % RA BNP: 17414, Troponin I 0.947, 1.110, 1.550,1,440 06/15 Echocardiogram Results: Severely reduced global left ventricular systolic function. Left ventricular ejection fraction is estimated at <20 % 06/13 Chest X Ray: Cardiomegaly ad small left pleural effusion. Pleural fluid appears new compared to old exam. No obvious heart failure Treatment: Telemetry Monitoring Betapace 80 MG PO BID 06/14 -06/17 Zestril 5 MG PO HS 06/14-06/17 Lasix 40MG PO BID Daily 06/14 -06/17 increased to BID on 06/17\ Coreg 12.5 MG PO BID W/Meals 06/14-06/18 In your professional opinion, can you please clarify the type of congestive heart failure if known? [ x ] Acute Systolic Heart Failure (reduced EF) (Template Last Revised: July 2020) MTDD
[2022-06-18] MEDS: lisinopriL 5 MG TAB PO SCH (20:43)
[2022-06-18] MEDS: ATORVASTATIN 80 MG TAB PO SCH (20:43)
[2022-06-18 22:23] VITALS: RESP 18
[2022-06-18] MEDS: HYDROmorphone 0.5 MG/0.5 ML SYRINGE IVP PRN (23:32)
[2022-06-18 23:37] VITALS: PULSE 50
[2022-06-19] MEDS: HEPARIN SOD,PORK IN 0.45% NACL 25,000 UNIT in 0.45% NACL 1 250ML.BAG IV SCH (03:32)
[2022-06-19] MEDS: HYDROmorphone 0.5 MG/0.5 ML SYRINGE IVP PRN (03:32)
[2022-06-19] MEDS: carvediloL 12.5 MG TAB PO SCH (06:14)
[2022-06-19] MEDS: FUROSEMIDE 40 MG TAB PO SCH (09:09)
[2022-06-19] MEDS: CLOPIDOGREL 75 MG TAB PO SCH (09:09)
[2022-06-19] MEDS: CHOLECALCIFEROL 25 MCG (1000 IU) TABLET PO SCH (09:09)
[2022-06-19] MEDS: SOTALOL 80 MG TAB PO SCH (09:09)
[2022-06-19] MEDS: DULoxetine HCL 60 MG CAPSULE.DR PO SCH (09:09)
[2022-06-19] MEDS: POTASSIUM CITRATE 10 MEQ TABLET.ER PO SCH (09:09)
[2022-06-19] MEDS: ASCORBIC ACID 500 MG TAB PO SCH (09:09)
[2022-06-19] MEDS: DOXYCYCLINE 100 MG CAP PO SCH (09:09)
[2022-06-19] MEDS: ZINC SULFATE 220 MG CAP PO SCH (09:09)
[2022-06-19] MEDS: ASPIRIN 81 MG PO SCH (09:09)
[2022-06-19] MEDS: MULTIVITAMINS, THERA 1 EACH TAB PO SCH (09:09)
[2022-06-19] MEDS: FAMOTIDINE 20 MG TAB PO SCH (09:09)
[2022-06-19] MEDS: AMIODARONE 200 MG TAB PO SCH (09:10)
[2022-06-19] MEDS: VIT A,C & E-LUTEIN-MINERALS 1 EACH TAB PO SCH (09:10)
[2022-06-19 12:35] VITALS: BP 114/70; TEMP 97.5
--- NOTE | 2022-06-19 18:34 | P.DS ---
Providers Date of admission: 06/13/22 20:03 Expected date of discharge: 06/19/22 Attending physician: Felicia Nice Consults: 06/13/22 19:38 Consult Physician Routine Consulting Provider: [facility] Consult Reason/Comments: Elevated Troponin, COVID, Generalized Weakness Do you want consulting provider notified?: Yes, Notify in am 06/13/22 22:30 Consult Physician Urgent Consulting Provider: [facility] Consult Reason/Comments: elevated trop Do you want consulting provider notified?: Yes, Notify in am Primary care physician: [facility] Course: 76 year old male with medical history of anemia, COPD, hypertension, hyperlipidemia, sleep apnea with CPAP use, history of V. tach, AICD, 3 vessel bypass in 2001, ischemic cardiomyopathy, and hiatal hernia post Ramona fundloplication. Former history of smoking. Presents to the hospital with generalized weakness, cough, shortness of breath worse with activity. Also reports diarrhea ongoing for the last week, fevers. Patient had a positive home covid test on 06/10/22 and has been taking paxlovid which was sent in by his analytics associate without improvement in symptoms. Reports his is also at home with similar symptoms. Chest x-ray shows small pleural effusion which appears new with no obvious heart failure. White count within normal limits at 9.1 and 6.4, hemoglobin is 11.9, patient presents with a creatinine of 1.34, lactic acidosis of 3.1, he does have troponin elevation of 0.947, 1.110 and 1.550 with a proBNP of 84,000. He was given a 2 L fluid bolus in the emergency center. Prior echocardiogram from July of this year showing EF 30 to 35% with moderate pulmonary hypertension. Initially required supplemental oxygen and has been weaned to room air. Lactic acid has normalized, patient reports diarrhea has resolved at this time. Cardiology has been consulted for further evaluation. 24 hour interval change 06/16/2022 76-year-old male who is currently admitted to the hospital with acute COVID-19 infection -- Echocardiogram reveals LV function at 20%, which is reduced from his previous 45%. No new wall motion abnormalities. He also has severe pulmonary hypertension and moderate valvular disease. VITALS:107/56, SpO2 99% on 3 L nasal cannula, pulse 55, temp 97.8F, respiratory rate 13 Sodium 136, potassium 4.9, BUN 28, creatinine 1.8 Continue supportive treatment 24 hour interval change 06/17/2022 76-year-old male who is currently admitted to the hospital with acute COVID-19 infection and acute exacerbation of CHF -- Patient is seen and evaluated and discussed with nursing staff; remains weak and lethargic; denies any chest pain -- Echocardiogram reveals LV function at 20%, which is reduced from his previous 45%. No new wall motion abnormalities. He also has severe pulmonary hypertension and moderate valvular disease. VITALS:107/56, SpO2 99% on 3 L nasal cannula, Blood pressure 109/56, pulse 53, r espiratory rate 15, oxygen 96% WBC 7.2, hemoglobin 11.6, hematocrit 37.1, platelet 242, sodium 136, potassium 5.4, BUN 26, creatinine 1.21, BNP 22,600 Continue supportive treatment 06/18/2022 Patient admitted with respiratory symptoms related to Covid infection although he has also very low ejection fraction less than 20% and there is evidence of an STEMI with elevated troponin and patient been followed closely by analytics associate team and he is currently on heparin drip Currently he is breathing looks okay as he states however he still have significant coughing and chest pain with coughing. He denies any diarrhea but he feels very weak. Heart rate is in the 50s, currently 51, is 92% on 2 L oxygen prior. He still mildly tachypneic at 22. He is saturating 90s on 4 L oxygen via nasal cannula, at home he states he was also on 4 L. Priorcalcitonin is slightly elevated at 0.30. We going to add doxycycline 5 days. ProBNP is also elevated, his on oral Lasix 40 mg twice daily and he is on neg ative fluid balance. We will add fluid restriction. He is also on aspirin and Plavix as well as heparin drip. Patient states that usually at baseline he uses a cane and he can walk for short distances but now he is feeling weaker. Also has been complaining of from urine dribbling, order bladder scan 1 and urine analysis Patient remains stable and has been cleared for discharge by cardiology service Patient Condition at Discharge: Serious Plan - Discharge Summary New Discharge Prescriptions: New Ascorbic Acid [Vitamin C] 1,000 mg PO DAILY 30 Days #30 tab Cholecalciferol [Vitamin D3 (25 Mcg = 1000 Iu)] 50 mcg PO DAILY 30 Days #30 tab Zinc Sulfate [Orazinc] 220 mg PO DAILY 30 Days #30 cap Doxycycline [Vibramycin] 100 mg PO BID 5 Days #10 cap Continue Aspirin 81 mg PO DAILY chew Furosemide [Lasix] 40 mg PO DAILY #30 tab Nitroglycerin Sl Tabs [Nitrostat] 0.4 mg SUBLINGUAL Q5M PRN #25 tab PRN Reason: Chest Pain Clopidogrel [Plavix] 75 mg PO DAILY #30 tab Vit C/E/Zn/Coppr/Lutein/Zeaxan [Preservision Areds 2 Softgel] 1 cap PO BID Potassium Citrate [Urocit-K] 10 meq PO BID lisinopriL [Zestril] 5 mg PO HS #90 tab Multivitamins, Thera [Multivitamin (formulary)] 1 tab PO DAILY predniSONE See Taper PO DIRECTED Amoxicillin 875 mg PO Q12HR Amiodarone [Cordarone] 200 mg PO DAILY Lidocaine 5% Patch [Lidoderm 5% Patch] 1 patch TOPICAL DAILY PRN PRN Reason: Pain Atorvastatin [Lipitor] 80 mg PO HS DULoxetine HCL [Cymbalta] 60 mg PO DAILY carvediloL [Coreg*] 12.5 mg PO BID-W/MEALS #180 tab Sotalol [Betapace] 80 mg PO BID Nirmatrelvir/Ritonavir [Paxlovid 150-100 mg Pack (Eua)] 1 dose PO DIRECTED oxyCODONE-APAP 10-325MG [Percocet 10-325 mg] 1 tab PO Q4HR PRN PRN Reason: Pain Discharge Medication List Aspirin 81 mg PO DAILY chew 10/26/19 [Rx] Clopidogrel [Plavix] 75 mg PO DAILY #30 tab 10/26/19 [Rx] Furosemide [Lasix] 40 mg PO DAILY #30 tab 10/26/19 [Rx] Nitroglycerin Sl Tabs [Nitrostat] 0.4 mg SUBLINGUAL Q5M PRN #25 tab 10/26/19 [Rx] Vit C/E/Zn/Coppr/Lutein/Zeaxan [Preservision Areds 2 Softgel] 1 cap PO BID 12/08/19 [History] Atorvastatin [Lipitor] 80 mg PO HS 08/10/21 [History] DULoxetine HCL [Cymbalta] 60 mg PO DAILY 08/10/21 [History] Potassium Citrate [Urocit-K] 10 meq PO BID 08/10/21 [History] carvediloL [Coreg*] 12.5 mg PO BID-W/MEALS #180 tab 08/12/21 [Rx] lisinopriL [Zestril] 5 mg PO HS #90 tab 08/22/21 [Rx] Amiodarone [Cordarone] 200 mg PO DAILY 06/13/22 [History] Amoxicillin 875 mg PO Q12HR 06/13/22 [History] Lidocaine 5% Patch [Lidoderm 5% Patch] 1 patch TOPICAL DAILY PRN 06/13/22 [History] Multivitamins, Thera [Multivitamin (formulary)] 1 tab PO DAILY 06/13/22 [History] Nirmatrelvir/Ritonavir [Paxlovid 150-100 mg Pack (Eua)] 1 dose PO DIRECTED 06/13/22 [History] Sotalol [Betapace] 80 mg PO BID 06/13/22 [History] oxyCODONE-APAP 10-325MG [Percocet 10-325 mg] 1 tab PO Q4HR PRN 06/13/22 [History] predniSONE See Taper PO DIRECTED 06/13/22 [History] Ascorbic Acid [Vitamin C] 1,000 mg PO DAILY 30 Days #30 tab 06/19/22 [Rx] Cholecalciferol [Vitamin D3 (25 Mcg = 1000 Iu)] 50 mcg PO DAILY 30 Days #30 tab 06/19/22 [Rx] Doxycycline [Vibramycin] 100 mg PO BID 5 Days #10 cap 06/19/22 [Rx] Zinc Sulfate [Orazinc] 220 mg PO DAILY 30 Days #30 cap 06/19/22 [Rx] Follow up Appointment(s)/Referral(s): Cong Hassan DO [Primary Care Provider] - 1-2 days Patient Instructions/Handouts: High Troponin Levels (ED), COVID-19 (Coronavirus Disease 2019) (DC) Discharge/Stand Alone Forms: Who Do I Call?, Personal Valve Tester Discharge Disposition: HOME SELF-CARE
--- NOTE | 2022-07-01 16:57 | CDI ---
Documentation Clarification Form Date: 07/01/2022 4:40:15 PM From: Sameera Aguilar Admit Date: 06/13/2022 8:03:00 PM Patient Name: Trino Brandt Visit Number: [id number] Discharge Date: 06/19/2022 2:39:00 PM ATTENTION: The Clinical Documentation Specialists (CDI) and [facility] Coding Staff appreciate your assistance in clarifying documentation. Please respond to the clarification below the line at the bottom and electronically sign. The CDI & [facility] Coding staff will review the response and follow-up if needed. Please note: Queries are made part of the Legal Health Record. If you have any questions, please contact the author of this message via ITS. Dr. Trinity Hdez Acute Covid 19 infection without evidence for pneumonia, possible some evidence of Tracheobronchitis is documented in Progress Note 06/18/22, but is not noted in subsequent documentation. Clarification is requested. History/Risk Factors: 76 year old male presented with generalized weakness, cough, SOB, diagnosed with Covid 19 infection. Patient has anemia, COPD, HTN, HLD, sleep apnea, AICD, ischemic cardiomyopathy and former smoker. Clinical Indicators: Covid 19 infection, cough, SOB, weakness, tachypnea, Sats in the 90s on 4L, procalcitonin 0.30 Treatment: started on doxycycline, sputum cultures Please clarify if the Tracheobronchitis is: [ ] Acute Tracheobronchitis due to Covid 19 - confirmed [ ] Chronic Tracheobronchitis - confirmed [ ] Viral Tracheobronchitis ruled out [ ] Other condition, please specify [ * ] Unable to determine MTDD
--- NOTE | 2022-07-01 17:24 | CDI ---
Documentation Clarification Form Date: 07/01/2022 5:02:12 PM From: Sameera Aguilar Admit Date: 06/13/2022 8:03:00 PM Patient Name: Trino Brandt Visit Number: [id number] Discharge Date: 06/19/2022 2:39:00 PM ATTENTION: The Clinical Documentation Specialists (CDI) and [facility] Coding Staff appreciate your assistance in clarifying documentation. Please respond to the clarification below the line at the bottom and electronically sign. The CDI & [facility] Coding staff will review the response and follow-up if needed. Please note: Queries are made part of the Legal Health Record. If you have any questions, please contact the author of this message via ITS. Dr. Trinity Hdez Conflicting documentation has been found in the medical record. As discharging physician, please provide clarification. Cardio consult note 06/14/22 states Evidence of myocardial injury with no evidence of ischemia Progress Note 06/18/22 states possible Non-STEMI Discharge Summary 06/18/22 states evidence of STEMI with elevated troponin History/Risk Factors: 76 year old male with acute COVID 19 infection, LV function at 20%, CHF, COPD, HTN, HLD, sleep apnea, uses CPAP, history of v-tach, AICD, 3 vessel bypass in 2001, ischemic cardiomyopathy Clinical Indicators: Covid 19 infection, acute systolic heart failure, weak, lethargic, denies any chest pain, pulmonary hypertension, moderate valvular disease, elevated troponins Treatment: followed by cardiology, heparin drip Please clarify which diagnosis is most appropriate: [ ] Type 1 MO [ ] Non- STEMI [ ] STEMI [ ] Type 2 MO due to Covid [ ] Type 2 MO due to Heart Failure [ ] Nonischemic Myocardial Injury [ ] Other (please specify) [ *] Unable to determine MTDD
== END 2022-06-19 14:39 | disposition home or self-care (01) | DRG 177 ==
LOC: EC 16:05 → 3SCARD 20:03 → 2SICU 06-14 18:29 → 3SCARD 06-18 05:17
PROVIDERS: ADMIT Hospitalist; ATTEND Hospitalist
DX: U07.1 COVID-19 (principal); I50.21 Acute systolic (congestive) heart failure; E87.20 Acidosis, unspecified; J96.11 Chronic respiratory failure with hypoxia; I13.0 Hypertensive heart and chronic kidney disease with heart failure and stage 1 through stage 4 chronic kidney disease, or unspecified chronic kidney disease; A08.39 Other viral enteritis; E86.0 Dehydration; N18.30 Chronic kidney disease, stage 3 unspecified; M79.7 Fibromyalgia; I27.20 Pulmonary hypertension, unspecified; I25.5 Ischemic cardiomyopathy; E78.5 Hyperlipidemia, unspecified; K44.9 Diaphragmatic hernia without obstruction or gangrene; J44.9 Chronic obstructive pulmonary disease, unspecified; D63.1 Anemia in chronic kidney disease; G89.29 Other chronic pain; R77.8 Other specified abnormalities of plasma proteins; M25.512 Pain in left shoulder; M25.511 Pain in right shoulder; I25.10 Atherosclerotic heart disease of native coronary artery without angina pectoris; M19.90 Unspecified osteoarthritis, unspecified site; N42.9 Disorder of prostate, unspecified; G47.30 Sleep apnea, unspecified; Z95.5 Presence of coronary angioplasty implant and graft; Z95.1 Presence of aortocoronary bypass graft; Z95.810 Presence of automatic (implantable) cardiac defibrillator; Z87.442 Personal history of urinary calculi; Z86.79 Personal history of other diseases of the circulatory system; Z79.899 Other long term (current) drug therapy; Z79.82 Long term (current) use of aspirin; Z79.02 Long term (current) use of antithrombotics/antiplatelets; I25.2 Old myocardial infarction; Z87.891 Personal history of nicotine dependence; Z91.041 Radiographic dye allergy status; Z71.3 Dietary counseling and surveillance
CPT/HCPCS: 36415; 71046; 80048; 80053; 81003; 83605; 83615; 83735; 83880; 84145; 84484; 85025; 85027; 85610; 85730; 86140; 87070; 87077; 87186; 87205; 87502; 87635; 93005; 93306; 96361; 96374; 96375; 96376; 99285

== ENCOUNTER 2022-09-20 01:41 | Inpatient (IN) | payer MEDICARE ==
--- NOTE | 2022-09-20 02:00 | ED ---
General Adult HPI - General Chief complaint: Shortness of Breath Stated complaint: SOB Time Seen by Provider: 09/20/22 01:44 Source: patient, EMS Mode of arrival: EMS Limitations: no limitations - History of Present Illness Initial comments: Dictation was produced using SDI dictation software. please excuse any grammatical, word or spelling errors. Chief Complaint: 77-year-old male presents to the ER by EMS for dyspnea History of Present Illness: This 69-year-old male has multiple comorbidities presents to the emergency department for dyspnea. Patient's been dyspneic for the last 3-4 days. Patient denies any history of COPD or asthma however his chart review says he does have a history of COPD, coronary artery disease. Patient thinks that he suffered from a bout of bronchitis. Patient denies any fever he does report a cough. Exacerbation cough is nonproductive. Denies any pain complaints. EMS said patient was wheezing so they gave him a DuoNeb. The ROS documented in this emergency department record has been reviewed and confirmed by me. Those systems with pertinent positive or negative responses have been documented in the HPI. All other systems are other negative and/or noncontributory. - Related Data Home Medications Medication Instructions Recorded Confirmed RX: Vit C/E/Zn/Coppr/Lutein/Zeaxan 1 cap PO BID 12/08/19 06/13/22 [Preservision Areds 2 Softgel] RX: Atorvastatin [Lipitor] 80 mg PO HS 08/10/21 06/13/22 RX: DULoxetine HCL [Cymbalta] 60 mg PO DAILY 08/10/21 06/13/22 RX: Potassium Citrate [Urocit-K] 10 meq PO BID 08/10/21 06/13/22 RX: Amiodarone [Cordarone] 200 mg PO DAILY 06/13/22 06/13/22 RX: Amoxicillin 875 mg PO Q12HR 06/13/22 06/13/22 RX: Lidocaine 5% Patch [Lidoderm 1 patch TOPICAL DAILY PRN 06/13/22 06/13/22 5% Patch] RX: Multivitamins, Thera 1 tab PO DAILY 06/13/22 06/13/22 [Multivitamin (formulary)] RX: Nirmatrelvir/Ritonavir 1 dose PO DIRECTED 06/13/22 06/13/22 [Paxlovid 150-100 mg Pack (Eua)] RX: Sotalol [Betapace] 80 mg PO BID 06/13/22 06/13/22 RX: oxyCODONE-APAP 10-325MG 1 tab PO Q4HR PRN 06/13/22 06/13/22 [Percocet 10-325 mg] RX: predniSONE See Taper PO DIRECTED 06/13/22 06/13/22 Previous Rx's Medication Instructions Recorded RX: Aspirin 81 mg PO DAILY chew 10/26/19 RX: Clopidogrel [Plavix] 75 mg PO DAILY #30 tab 10/26/19 RX: Furosemide [Lasix] 40 mg PO DAILY #30 tab 10/26/19 RX: Nitroglycerin Sl Tabs 0.4 mg SUBLINGUAL Q5M PRN #25 tab 10/26/19 [Nitrostat] RX: carvediloL [Coreg*] 12.5 mg PO BID-W/MEALS #180 tab 08/12/21 RX: lisinopriL [Zestril] 5 mg PO HS #90 tab 08/22/21 RX: Ascorbic Acid [Vitamin C] 1,000 mg PO DAILY 30 Days #30 tab 06/19/22 RX: Cholecalciferol [Vitamin D3 50 mcg PO DAILY 30 Days #30 tab 06/19/22 (25 Mcg = 1000 Iu)] RX: Doxycycline [Vibramycin] 100 mg PO BID 5 Days #10 cap 06/19/22 RX: Zinc Sulfate [Orazinc] 220 mg PO DAILY 30 Days #30 cap 06/19/22 Allergies Allergy/AdvReac Type Severity Reaction Status Date / Time Iodinated Contrast Media AdvReac Unknown Verified 06/13/22 21:03 Review of Systems ROS Statement: Those systems with pertinent positive or pertinent negative responses have been documented in the HPI. ROS Other: All systems not noted in ROS Statement are negative. Past Medical History Past Medical History: Coronary Artery Disease (CAD), Chest Pain / Angina, COPD, Hyperlipidemia, Hypertension, Myocardial Infarction ([place]), Musculoskeletal Disorder, Osteoarthritis (OA), Prostate Disorder, Sleep Apnea/CPAP/BIPAP Additional Past Medical History / Comment(s): HH, fibromyalgia, anemia, hypogonadism, vtach, NSTEMI 10/20/19, CPAP use, Inogen portable. Kidney stones; left flank pain, chronic toni shoulder pain, states has numbness rt arm, recent adm. for chest pain, difficulty swallowing & weight loss Last Myocardial Infarction Date:: 10/20/19 History of Any Multi-Drug Resistant Organisms: None Reported Past Surgical History: Adenoidectomy, AICD, Back Surgery, Cholecystectomy, Coronary Bypass/CABG, Heart Catheterization, Hernia Repair, Orthopedic Surgery, Tonsillectomy Additional Past Surgical History / Comment(s): CABG x3 in 1999, rhinoplasty, ACDF 2, left bunionectomy, Lasik, lipoma from left shoulder 2, colonoscopy 5 years ago, hernia repair. pacer Past Anesthesia/Blood Transfusion Reactions: No Reported Reaction Type of Cardiac Device: AICD Device Placement Date:: 12/12/19 Past Psychological History: No Psychological Hx Reported Smoking Status: Former smoker - Past Family History Mother Family Medical History: Cancer, Coronary Artery Disease (CAD) Father Family Medical History: Cancer Brother(s) Family Medical History: Congestive Heart Failure (CHF), Coronary Artery Disease (CAD) Sister(s) Family Medical History: Congestive Heart Failure (CHF) General Exam - General Exam Comments Initial Comments: PHYSICAL EXAM: General Impression: Alert and oriented x3, not in acute distress, pale HEENT: Normocephalic atraumatic, extra-ocular movements intact, pupils equal and reactive to light bilaterally, mucous membranes moist. Cardiovascular: Heart regular rate and rhythm Chest: Able to complete full sentences, no retractions, no tachypnea Abdomen: abdomen soft, non-tender, non-distended, no organomegaly Musculoskeletal: Pulses present and equal in all extremities, no peripheral edema Motor: no focal deficits noted Neurological: CN II-XII grossly intact, no focal motor or sensory deficits noted Skin: Intact with no visualized rashes Psych: Normal affect and mood Limitations: no limitations Course Vital Signs 09/20/22 01:43 Temperature 97.4 F L Pulse Rate 86 Respiratory 20 Rate Blood Pressure 156/81 O2 Sat by Pulse 100 Oximetry Procedures - Sepsis Sepsis Focused Exam #1 Time Sepsis Criteria Met: : Sepsis Focused Exam Date: 09/20/22 Sepsis Focused Exam Time: Sepsis Focused Exam Complete: Yes Vital Signs & RN Notes Reviewed: Yes Capillary Refill: < 2 Seconds: Fingers, Toes Peripheral Pulses: Normal: Radial (R), Radial (L), Posterior Tibialis (R), Posterior Tibialis (L), Dorsalis Pedis (R), Dorsalis Pedis (L) Skin Color: Normal for Patient Respiratory Exam: normal lung sounds Cardiovascular Exam: regular rate Medical Decision Making - Medical Decision Making My EKG interpretation: Ventricular rate 81, paced rhythm, SD interval 160, QRS 142, QTc 460. No SD prolongation, no QTC prolongation, no ST or T-wave changes noted. EKG compared to 06/13/2022 showing no changes. Overall, this EKG is unremarkable Was pt. sent in by a medical professional or institution (, PA, [employer], urgent care, hospital, or [facility]...) When possible be specific @ -No Did you speak to anyone other than the patient for history (EMS, parent, family, police, friend...)? What history was obtained from this source @ -No Did you review nursing and triage notes (agree or disagree)? Why? @ -I reviewed and agree with nursing and triage notes Were old charts reviewed (outside hosp., previous admission, EMS record, old EKG, old radiological studies, urgent care reports/EKG's, [facility] records)? Report findings @ -Prior cardiology notes were reviewed Differential Diagnosis (chest pain, altered mental status, abdominal pain women, abdominal pain men, vaginal bleeding, musculoskeletal, weakness, fever, dyspnea, syncope, headache, dizziness, GI bleed, back pain, seizure, CVA, palpatations, mental health)? @ -Differential Dyspnea: Coronary syndrome, arrhythmia, tamponade, asthma, COPD, pulmonary embolism, pneumonia, pneumothorax, pulmonary effusion, anaphylaxis, diabetic ketoacidosis, flailed chest, pulmonary contusion, diaphragmatic rupture, anemia, neuromuscular, this is not meant to be an all-inclusive list. EKG interpreted by me (3pts min.). @ -See above X-rays interpreted by me (1pt min.). @ -Left lower lobe infiltrate CT interpreted by me (1pt min.). @ -None done U/S interpreted by me (1pt. min.). @ -None done What testing was considered but not performed or refused? (CT, X-rays, U/S, labs)? Why? @ -None What meds were considered but not given or refused? Why? @ -None Did you discuss the management of the patient with other professionals (professionals i.e. , PA, [employer], lab, RT, psych nurse, social media manager, rug setter [place], teacher, artillery officer, case management social worker)? Give summary @ -Case discussed with hospitalist for admission Was smoking cessation discussed for >3mins.? @ -No Was critical care preformed (if so, how long)? @ -No Were there social determinants of health that impacted care today? How? (Homelessness, low income, unemployed, alcoholism, drug addiction, transportation, low edu. Level, literacy, decrease access to med. care, long-term, re hab)? @ -No Was there de-escalation of care discussed even if they declined (Discuss DNR or withdrawal of care, Hospice)? DNR status @ -No What co-morbidities impacted this encounter? (DM, HTN, Smoking, COPD, CAD, Cancer, CVA, ARF, Chemo, Hep., AIDS, mental health diagnosis, sleep apnea, morbid obesity)? @ -History of heart failure, COPD Was patient admitted / discharged? Hospital course, mention meds given and route, prescriptions, significant lab abnormalities, going to OR and other pertinent info. @ -77-year-old male presents to the emergency department for cough and shortness of breath. Patient has extensive cardiopulmonary comorbidities. Patient is pale he does not appear to be significantly dyspneic at the bedside. Laboratory evaluation obtained. Hemoglobin stable at 12.3. Coag panel is unremarkable. Metabolic panel is within acceptable limits. No findings of renal failure. Troponin is elevated 0.120 however this appears to be below his baseline since the last 2-3 years. Prematurity peptide is elevated. Is likely a component of heart failure with superimposed pneumonia. Given patient's history of 20% ejection fraction patient given the usual 30 mL per KG bolus to treat sepsis. Patient given gentle hydration Undiagnosed new problem with uncertain prognosis? @ -No Drug Therapy requiring intensive monitoring for toxicity (Heparin, Nitro, Insulin, Cardizem)? @ -No Were any procedures done? @ -No Diagnosis/symptom? Acute, or Chronic, or Acute on Chronic? Uncomplicated (without systemic symptoms) or Complicated (systemic symptoms)? @ -1. Acute dyspnea multifactorial Side effects of treatment? @ -No Exacerbation, Progression, or Severe Exacerbation? @ -No Poses a threat to life or bodily function? How? (Chest pain, [place], NH, pneumonia, PE, COPD, DKA, ARF, appy, cholecystitis, CVA, Diverticulitis, Homicidal, Suicidal, threat to staff... and all critical care pts) @ -yes - Lab Data Result diagrams: 09/20/22 01:58 09/20/22 02:50 Lab Results 09/20/22 09/20/22 09/20/22 Range/Units 01:58 01:58 01:58 WBC 7.4 (3.8-10.6) k/uL RBC 4.05 L (4.30-5.90) m/uL Hgb 12.3 L (13.0-17.5) gm/dL Hct 37.5 L (39.0-53.0) % MCV 92.7 (80.0-100.0) fL MCH 30.4 (25.0-35.0) pg MCHC 32.8 (31.0-37.0) g/dL RDW 14.3 (11.5-15.5) % Plt Count 229 (150-450) k/uL MPV 9.5 Neutrophils % 69 % Lymphocytes % 17 % Monocytes % 9 % Eosinophils % 1 % Basophils % 0 % Neutrophils # 5.1 (1.3-7.7) k/uL Lymphocytes # 1.3 (1.0-4.8) k/uL Monocytes # 0.7 (0-1.0) k/uL Eosinophils # 0.1 (0-0.7) k/uL Basophils # 0.0 (0-0.2) k/uL PT 11.4 (9.0-12.0) sec INR 1.1 (<1.2) APTT 25.6 (22.0-30.0) sec Sodium (137-145) mmol/L Potassium (3.5-5.1) mmol/L Chloride (98-107) mmol/L Carbon Dioxide (22-30) mmol/L Anion Gap mmol/L BUN (9-20) mg/dL Creatinine (0.66-1.25) mg/dL Est GFR (CKD-EPI)AfAm (>60 ml/min/1.73 sqM) Est GFR (CKD-EPI)NonAf (>60 ml/min/1.73 sqM) Glucose (74-99) mg/dL Plasma Lactic Acid Kyle 2.3 H* (0.7-2.0) mmol/L Calcium (8.4-10.2) mg/dL Magnesium (1.6-2.3) mg/dL Total Bilirubin (0.2-1.3) mg/dL AST (17-59) U/L ALT (4-49) U/L Alkaline Phosphatase (38-126) U/L Troponin I (0.000-0.034) ng/mL NT-Pro-B Natriuret Pep pg/mL Total Protein (6.3-8.2) g/dL Albumin (3.5-5.0) g/dL 09/20/22 09/20/22 09/20/22 Range/Units 01:58 01:58 02:50 WBC (3.8-10.6) k/uL RBC (4.30-5.90) m/uL Hgb (13.0-17.5) gm/dL Hct (39.0-53.0) % MCV (80.0-100.0) fL MCH (25.0-35.0) pg MCHC (31.0-37.0) g/dL RDW (11.5-15.5) % Plt Count (150-450) k/uL MPV Neutrophils % % Lymphocytes % % Monocytes % % Eosinophils % % Basophils % % Neutrophils # (1.3-7.7) k/uL Lymphocytes # (1.0-4.8) k/uL Monocytes # (0-1.0) k/uL Eosinophils # (0-0.7) k/uL Basophils # (0-0.2) k/uL PT (9.0-12.0) sec INR (<1.2) APTT (22.0-30.0) sec Sodium 135 L (137-145) mmol/L Potassium 4.7 (3.5-5.1) mmol/L Chloride 107 (98-107) mmol/L Carbon Dioxide 20 L (22-30) mmol/L Anion Gap 8 mmol/L BUN 17 (9-20) mg/dL Creatinine 1.15 (0.66-1.25) mg/dL Est GFR (CKD-EPI)AfAm 71 (>60 ml/min/1.73 sqM) Est GFR (CKD-EPI)NonAf 61 (>60 ml/min/1.73 sqM) Glucose 107 H (74-99) mg/dL Plasma Lactic Acid Kyle (0.7-2.0) mmol/L Calcium 8.6 (8.4-10.2) mg/dL Magnesium 1.9 (1.6-2.3) mg/dL Total Bilirubin 1.2 (0.2-1.3) mg/dL AST 30 (17-59) U/L ALT 23 (4-49) U/L Alkaline Phosphatase 89 (38-126) U/L Troponin I 0.120 H* (0.000-0.034) ng/mL NT-Pro-B Natriuret Pep 80998 pg/mL Total Protein 5.9 L (6.3-8.2) g/dL Albumin 3.2 L (3.5-5.0) g/dL Disposition Clinical Impression: Dyspnea Disposition: ADMITTED IP TO THIS HOSP Condition: Serious Referrals: Cong Hassan DO [Primary Care Provider] - 1-2 days Decision Time: 03:20
[2022-09-20 02:08] LABS: Basophils % (A) 0 %; Eosinophils # (A) 0.1 k/uL (0-0.7); Eosinophils % (A) 1 %; HCT 37.5 % (39.0-53.0); HGB 12.3 gm/dL (13.0-17.5); Lymphocytes # (A) 1.3 k/uL (1.0-4.8); Lymphocytes % (A) 17 %; MCH 30.4 pg (25.0-35.0); MCHC 32.8 g/dL (31.0-37.0); MCV 92.7 fL (80.0-100.0); Mean Platelet Volume 9.5; Monocytes # (A) 0.7 k/uL (0-1.0); Monocytes % (A) 9 %; Neutrophils # (A) 5.1 k/uL (1.3-7.7); Neutrophils % (A) 69 %; Platelet Count 229 k/uL (150-450); RBC 4.05 m/uL (4.30-5.90); RDW 14.3 % (11.5-15.5); WBC 7.4 k/uL (3.8-10.6)
--- NOTE | 2022-09-20 02:20 | XR ---
EXAMINATION TYPE: XR chest 2V DATE OF EXAM: 09/20/2022 COMPARISON: 06/13/2022 TECHNIQUE: PA and lateral views submitted. HISTORY: Shortness of breath FINDINGS: Postsurgical changes are seen. Is a cardiac device. Left-sided consolidation and pleural effusion is increased from prior exam. Underlying COPD. No pneumothorax. Right lung clear. Arthropathy of the mary ulders. IMPRESSION: 1. COPD with left lower lobe infiltrate and small effusion.
[2022-09-20 02:26] LABS: INR 1.1 (<1.2); Partial Thromboplastin Time 25.6 sec (22.0-30.0); Prothrombin Time 11.4 sec (9.0-12.0)
[2022-09-20] MEDS ORDERED: AZITHROMYCIN 500 MG in SODIUM CHLORIDE 0.9% 250 ML IVPB STA (02:28)
[2022-09-20] MEDS ORDERED: cefTRIAXone IN SWFI 1,000 MG/10 ML SYRINGE IVP STA (02:28)
[2022-09-20 03:13] LABS: Albumin 3.2 g/dL (3.5-5.0); Calcium 8.6 mg/dL (8.4-10.2); Magnesium 1.9 mg/dL (1.6-2.3); Potassium 4.7 mmol/L (3.5-5.1); Total Bilirubin 1.2 mg/dL (0.2-1.3); Total Protein 5.9 g/dL (6.3-8.2)
[2022-09-20] MEDS ORDERED: FUROSEMIDE 10 MG/ML 4 ML VIAL IV STA (03:14)
--- NOTE | 2022-09-20 08:54 | US ---
EXAMINATION TYPE: US chest DATE OF EXAM: 09/20/2022 COMPARISON: NONE CLINICAL HISTORY: Markings for thoracentesis by pulmonary staff. TECHNIQUE: Targeted ultrasound of the posterior lower bilateral hemithoraces EXAM MEASUREMENTS: Right Pleural Effusion pocket size: 0 cm Left Pleural Effusion pocket size: 10.4 cm Left skin surface to fluid distance: 1.15 cm Left side marked for possible thoracentesis outside the dept. Pulmonologists are able to review the images in the patient?s EMR. IMPRESSIONS: Left pleural effusion amenable to thoracentesis. No significant right pleural effusion.
[2022-09-20] MEDS: FUROSEMIDE 40 MG TAB PO SCH ×2 (10:07→20:38)
--- NOTE | 2022-09-20 10:12 | XR ---
EXAMINATION TYPE: XR chest 1V portable DATE OF EXAM: 09/20/2022 COMPARISON: 09/20/2022 HISTORY: Status post left thoracentesis TECHNIQUE: Single frontal view of the chest is obtained. FINDINGS: There is been a marked reduction in the left pleural effusion. There is a there is no pneumothorax. T here is a tiny right pleural effusion. There is a 2-lead cardiac pacemaker and median sternotomy wires. The heart is prominent in size but the pulmonary vasculature is not congested. There is no airspace c onsolidation. There are marked degenerative changes of the glenohumeral joints bilaterally. There is evidence for c ervical fusion. IMPRESSION: 1. Marked reduction/resolution of the left pleural effusion following left sided thoracentesis. 2. No pneumothorax. 3. Tiny right pleural effusion. 4. Mild cardiomegaly without pulmonary vascular congestion and interstitial edema.
--- NOTE | 2022-09-20 10:17 | P.CRDCN ---
History of Present Illness Consult date: 09/20/22 History of present illness: HISTORY OF PRESENT ILLNESS: This is a 77-year-old male with a past medical history significant for or near disease with previous CABG, ischemic cardiomyopathy, AICD implantation, ventricular tachycardia, hypertension, hyperlipidemia, and former nicotine dependence. Patient follows in the office with Dr. Chisholm. We have been asked to see the patient in consultation for congestive heart failure. Patient examined at the bedside. Patient presented to the hospital with a chief complaint of shortness of breath. Patient states he has been feeling short of breath for the past 3-4 days. He reports a cough. He denies any sputum production. He denies any fever or chills. He also reports having mild chest discomfort along with the shortness of breath. Patient presented to the hospital and was found to be in acute congestive heart failure. He was started on IV Lasix. The patient states he has been taking his medications at home regularly. He states he tries his best to follow a low-sodium diet. * EKG reveals paced rhythm * Chest xray COPD with left lower lobe infiltrate and small effusion * Chest ultrasound: Left pleural effusion amenable to thoracentesis. No significant right pleural effusion. * Laboratory data: WBC 7.4. Hemoglobin 12.3. Platelet count 129. Sodium 135. Potassium 4.7. BUN 17. Creatinine 1.15. Lactic acid 2.3. Repeat 1.9. Troponin 0.120. ProBNP 49,900. * Current home cardiac medications include: Home medication list has not been verified at the time of this dictation * Most recent echocardiogram obtained in June 2022 * Cardiac catheterization history: August 2021 with Impala supported PCI of the left main and circumflex REVIEW OF SYSTEMS: At the time of my exam: CONSTITUTIONAL: Denies fever or chills. HEENT: Denies blurred vision, vision changes, or eye pain. Denies hemoptysis CARDIOVASCULAR: Denies chest pain. Denies orthopnea. Denies PND. Denies palpitations RESPIRATORY: Denies shortness of breath. GASTROINTESTINAL: Denies abdominal pain. Denies nausea or vomiting. HEMATOLOGIC: Denies bleeding disorders. GENITOURINARY: Denies any blood in urine. SKIN: Denies pruitis. Denies rash. PHYSICAL EXAM: VITAL SIGNS: Reviewed. GENERAL: Well-developed in no acute distress. HEENT: Head is normocephalic. Pupils are equal, round. Sclerae anicteric. Mucous membranes of the mouth are moist. Neck supple. No JVD or thyromegaly LUNGS: Respirations even and unlabored. Lungs diminished with minimal crackles at the bases. Left more diminished than right. HEART: Regular rate and rhythm. S1 and S2 heard. ABDOMEN: Soft. Nondistended. Nontender. EXTREMITIES: Normal range of motion. No clubbing or cyanosis. Peripheral pulses intact. Trace lower extremity edema NEUROLOGIC: Awake and alert. Oriented x 3. ASSESSMENT: Shortness of breath Acute on chronic congestive heart failure with reduced ejection fraction, EF 20% Abnormal troponin, likely secondary to above, no evidence of acute coronary syndrome Left pleural effusion Coronary artery disease with previous CABG and subsequent stenting Ischemic cardiomyopathy History of AICD implantation History of ventricular tachycardia Hypertension Hyperlipidemia Former nicotine dependence PLAN: No need to repeat echocardiogram as this was performed in June 2022 Pulmonary consulted. Await evaluation Continue IV Lasix Daily weights, accurate I&O, and monitoring of kidney function Patient's home medication list has not been verified. When medication list is verified, will resume home medications Further recommendations pending patient's course Nurse practitioner note has been reviewed by physician. Signing provider agrees with the documented findings, assessment, and plan of care. Past Medical History Past Medical History: Coronary Artery Disease (CAD), Chest Pain / Angina, COPD, Hyperlipidemia, Hypertension, Myocardial Infarction ([place]), Musculoskeletal Disorder, Osteoarthritis (OA), Prostate Disorder, Sleep Apnea/CPAP/BIPAP Additional Past Medical History / Comment(s): HH, fibromyalgia, anemia, hypogonadism, vtach, NSTEMI 10/20/19, CPAP use, Inogen portable. Kidney stones; left flank pain, chronic toni shoulder pain, states has numbness rt arm, recent adm. for chest pain, difficulty swallowing & weight loss Last Myocardial Infarction Date:: 10/20/19 History of Any Multi-Drug Resistant Organisms: None Reported Past Surgical History: Adenoidectomy, AICD, Back Surgery, Cholecystectomy, Coronary Bypass/CABG, Heart Catheterization, Hernia Repair, Orthopedic Surgery, Tonsillectomy Additional Past Surgical History / Comment(s): CABG x3 in 1999, rhinoplasty, ACDF 2, left bunionectomy, Lasik, lipoma from left shoulder 2, colonoscopy 5 years ago, hernia repair. pacer Past Anesthesia/Blood Transfusion Reactions: No Reported Reaction Type of Cardiac Device: AICD Device Placement Date:: 12/12/19 Past Psychological History: No Psychological Hx Reported Smoking Status: Former smoker Past Alcohol Use History: None Reported Additional Past Alcohol Use History / Comment(s): Quit smoking 1985, smoked 2ppd from age 14 Past Drug Use History: None Reported - Past Family History Mother Family Medical History: Cancer, Coronary Artery Disease (CAD) Father Family Medical History: Cancer Brother(s) Family Medical History: Congestive Heart Failure (CHF), Coronary Artery Disease (CAD) Sister(s) Family Medical History: Congestive Heart Failure (CHF) Medications and Allergies Home Medications Medication Instructions Recorded Confirmed Type Aspirin 81 mg PO DAILY chew 10/26/19 09/20/22 Rx Clopidogrel [Plavix] 75 mg PO DAILY #30 tab 10/26/19 09/20/22 Rx Furosemide [Lasix] 40 mg PO DAILY #30 tab 10/26/19 09/20/22 Rx Nitroglycerin Sl Tabs [Nitrostat] 0.4 mg SUBLINGUAL Q5M PRN #25 tab 10/26/19 09/20/22 Rx Vit C/E/Zn/Coppr/Lutein/Zeaxan 1 cap PO BID 12/08/19 09/20/22 History [Preservision Areds 2 Softgel] Atorvastatin [Lipitor] 80 mg PO HS 08/10/21 09/20/22 History DULoxetine HCL [Cymbalta] 60 mg PO DAILY 08/10/21 09/20/22 History Potassium Citrate [Urocit-K] 10 meq PO BID 08/10/21 09/20/22 History carvediloL [Coreg*] 12.5 mg PO BID-W/MEALS #180 tab 08/12/21 09/20/22 Rx lisinopriL [Zestril] 5 mg PO HS #90 tab 08/22/21 09/20/22 Rx Lidocaine 5% Patch [Lidoderm 5% 1 patch TOPICAL DAILY 06/13/22 09/20/22 History Patch] Multivitamins, Thera [Multivitamin 1 tab PO DAILY 06/13/22 09/20/22 History (formulary)] Sotalol [Betapace] 80 mg PO BID 06/13/22 09/20/22 History oxyCODONE-APAP 10-325MG [Percocet 1 tab PO Q4HR PRN 06/13/22 09/20/22 History 10-325 mg] Cholecalciferol [Vitamin D3 (25 50 mcg PO DAILY 30 Days #30 tab 06/19/22 09/20/22 Rx Mcg = 1000 Iu)] ALPRAZolam [Xanax] 0.5 mg PO BID PRN 09/20/22 09/20/22 History Ascorbic Acid [Vitamin C] 500 mg PO DAILY 09/20/22 09/20/22 History Allergies Allergy/AdvReac Type Severity Reaction Status Date / Time Iodinated Contrast Media AdvReac Unknown Verified 09/20/22 10:59 Physical Exam Vitals: Vital Signs Temp Pulse Pulse Resp BP BP Pulse Ox 09/20/22 04:37 78 18 09/20/22 04:10 97.6 F 78 18 153/85 97 09/20/22 03:37 98.6 F 82 20 139/75 100 09/20/22 01:43 97.4 F L 86 20 156/81 100 Intake and Output 09/19/22 09/20/22 09/20/22 22:59 06:59 14:59 Intake Total 240 358 Balance 240 358 Intake: Oral 240 358 Other: Voiding Method External Catheter Weight 62.7 kg Results 09/20/22 01:58 09/20/22 05:45 Cardiac Enzymes 09/20/22 09/20/22 Range/Units 01:58 02:50 AST 30 (17-59) U/L Troponin I 0.120 H* (0.000-0.034) ng/mL Coagulation 09/20/22 Range/Units 01:58 PT 11.4 (9.0-12.0) sec APTT 25.6 (22.0-30.0) sec CBC 09/20/22 Range/Units 01:58 WBC 7.4 (3.8-10.6) k/uL RBC 4.05 L (4.30-5.90) m/uL Hgb 12.3 L (13.0-17.5) gm/dL Hct 37.5 L (39.0-53.0) % Plt Count 229 (150-450) k/uL Comprehensive Metabolic Panel 09/20/22 Range/Units 02:50 Sodium 135 L (137-145) mmol/L Potassium 4.7 (3.5-5.1) mmol/L Chloride 107 (98-107) mmol/L Carbon Dioxide 20 L (22-30) mmol/L BUN 17 (9-20) mg/dL Creatinine 1.15 (0.66-1.25) mg/dL Glucose 107 H (74-99) mg/dL Calcium 8.6 (8.4-10.2) mg/dL AST 30 (17-59) U/L ALT 23 (4-49) U/L Alkaline Phosphatase 89 (38-126) U/L Total Protein 5.9 L (6.3-8.2) g/dL Albumin 3.2 L (3.5-5.0) g/dL Current Medications Generic Name Dose Route Start Last Admin Trade Name Freq PRN Reason Stop Dose Admin Furosemide 40 mg 09/20/22 09:00 Furosemide 40 Mg Tab PO Q12HR GORDY Intake and Output 09/19/22 09/20/22 09/20/22 22:59 06:59 14:59 Intake Total 240 358 Balance 240 358 Intake: Oral 240 358 Other: Voiding Method External Catheter Weight 62.7 kg 09/20/22 01:58 09/20/22 02:50
--- NOTE | 2022-09-20 10:57 | OP ---
OPERATIVE REPORT DATE OF SERVICE : PROCEDURE PERFORMED: Left-sided thoracentesis. PREOPERATIVE DIAGNOSIS: Left pleural effusion. POSTOPERATIVE DIAGNOSIS: Left pleural effusion. ANESTHESIA USED: 2 mL of 1% lidocaine. DESCRIPTION OF PROCEDURE: The patient was placed in a sitting upright position, the area below the left scapula was prepared in a sterile fashion and drapes were applied. The fluid was earlier localized by ultrasound guidance, and it correlated to the level of the eighth or ninth intercostal space and tip of the scapula. The area was locally anesthetized with lidocaine. Then, the fluid was localized with a 26-gauge needle. A small tiny arun was made in the skin at the same level, and then, a standard thoracentesis catheter and needle were used, the needle was inserted at the same site, advanced into the pleural space, and as soon as the fluid was obtained, the catheter was advanced over the needle and the needle was pulled out of the pleural space. Freely flowing fluid was removed, the fluid was basically mostly clear, slight blood tinge noted and roughly, 650 mL of fluid was removed from the left pleural space. Fluid was sent for different diagnostic studies. Procedure was well tolerated, no complications noted. MMODL / IJN: [id number] /
--- NOTE | 2022-09-20 12:04 | P.CNPUL ---
History of Present Illness Consult date: 09/20/22 Requesting physician: Felicia Nice Reason for consult: dyspnea, cough Chief complaint: Shortness of breath and dry cough History of present illness: This is a 77-year-old white male with history of multiple medical problems including severe ischemic cardiomyopathy, ejection fraction of 20%, history of previous CABG, AICD placement, ventricular tachycardia, hypertension, former smoker, patient presented to the hospital with chief complaint of shortness of breath, dry cough, has been going on for the last 3-4 days. No fever, no chills, no hemoptysis, no chest pain. Chest x-ray on admission showed cardiomegaly, and left-sided pleural effusion with atelectasis secondary to pleural effusion. Patient was admitted and this consult was initiated. Ultrasound of the chest showed relatively good sized left-sided pleural effusion hence I saw the patient and performed a diagnostic and therapeutic left-sided thoracentesis and I was able to drain over 650 mL of relatively clear fluid but grossly seems to be transudative in nature patient felt much better after the procedure in the meantime the patient remains on diuretics for presumptive systolic congestive heart failure. Review of Systems CONSTITUTIONAL: No fever no chills no weight loss. HEENT: Negative. CARDIOVASCULAR: As noted in HPI. RESPIRATORY: As noted in HPI. GASTROINTESTINAL: Negative. HEMATOLOGIC: Negative.. No clotting bleeding or bruising GENITOURINARY: Negative.. SKIN: Negative. Psychiatric: Negative. Neurologic: Negative.. Past Medical History Past Medical History: Coronary Artery Disease (CAD), Chest Pain / Angina, COPD, Hyperlipidemia, Hypertension, Myocardial Infarction ([place]), Musculoskeletal Disorder, Osteoarthritis (OA), Prostate Disorder, Sleep Apnea/CPAP/BIPAP Additional Past Medical History / Comment(s): HH, fibromyalgia, anemia, hypogonadism, vtach, NSTEMI 10/20/19, CPAP use, Inogen portable. Kidney stones; left flank pain, chronic toni shoulder pain, states has numbness rt arm, recent adm. for chest pain, difficulty swallowing & weight loss Last Myocardial Infarction Date:: 10/20/19 History of Any Multi-Drug Resistant Organisms: None Reported Past Surgical History: Adenoidectomy, AICD, Back Surgery, Cholecystectomy, Coronary Bypass/CABG, Heart Catheterization, Hernia Repair, Orthopedic Surgery, Tonsillectomy Additional Past Surgical History / Comment(s): CABG x3 in 1999, rhinoplasty, ACDF 2, left bunionectomy, Lasik, lipoma from left shoulder 2, colonoscopy 5 years ago, hernia repair. pacer Past Anesthesia/Blood Transfusion Reactions: No Reported Reaction Type of Cardiac Device: AICD Device Placement Date:: 12/12/19 Past Psychological History: No Psychological Hx Reported Smoking Status: Former smoker Past Alcohol Use History: None Reported Additional Past Alcohol Use History / Comment(s): Quit smoking 1985, smoked 2ppd from age 14 Past Drug Use History: None Reported - Past Family History Mother Family Medical History: Cancer, Coronary Artery Disease (CAD) Father Family Medical History: Cancer Brother(s) Family Medical History: Congestive Heart Failure (CHF), Coronary Artery Disease (CAD) Sister(s) Family Medical History: Congestive Heart Failure (CHF) Medications and Allergies Home Medications Medication Instructions Recorded Confirmed Type Aspirin 81 mg PO DAILY chew 10/26/19 09/20/22 Rx Clopidogrel [Plavix] 75 mg PO DAILY #30 tab 10/26/19 09/20/22 Rx Furosemide [Lasix] 40 mg PO DAILY #30 tab 10/26/19 09/20/22 Rx Nitroglycerin Sl Tabs [Nitrostat] 0.4 mg SUBLINGUAL Q5M PRN #25 tab 10/26/19 09/20/22 Rx Vit C/E/Zn/Coppr/Lutein/Zeaxan 1 cap PO BID 12/08/19 09/20/22 History [Preservision Areds 2 Softgel] Atorvastatin [Lipitor] 80 mg PO HS 08/10/21 09/20/22 History DULoxetine HCL [Cymbalta] 60 mg PO DAILY 08/10/21 09/20/22 History Potassium Citrate [Urocit-K] 10 meq PO BID 08/10/21 09/20/22 History carvediloL [Coreg*] 12.5 mg PO BID-W/MEALS #180 tab 08/12/21 09/20/22 Rx lisinopriL [Zestril] 5 mg PO HS #90 tab 08/22/21 09/20/22 Rx Lidocaine 5% Patch [Lidoderm 5% 1 patch TOPICAL DAILY 06/13/22 09/20/22 History Patch] Multivitamins, Thera [Multivitamin 1 tab PO DAILY 06/13/22 09/20/22 History (formulary)] Sotalol [Betapace] 80 mg PO BID 06/13/22 09/20/22 History oxyCODONE-APAP 10-325MG [Percocet 1 tab PO Q4HR PRN 06/13/22 09/20/22 History 10-325 mg] Cholecalciferol [Vitamin D3 (25 50 mcg PO DAILY 30 Days #30 tab 06/19/22 09/20/22 Rx Mcg = 1000 Iu)] ALPRAZolam [Xanax] 0.5 mg PO BID PRN 09/20/22 09/20/22 History Ascorbic Acid [Vitamin C] 500 mg PO DAILY 09/20/22 09/20/22 History Allergies Allergy/AdvReac Type Severity Reaction Status Date / Time Iodinated Contrast Media AdvReac Unknown Verified 09/20/22 10:59 Physical Exam Vitals: Vital Signs Temp Pulse Pulse Resp BP BP Pulse Ox 09/20/22 08:00 98.5 F 70 22 168/81 98 09/20/22 04:37 78 18 09/20/22 04:10 97.6 F 78 18 153/85 97 09/20/22 03:37 98.6 F 82 20 139/75 100 09/20/22 01:43 97.4 F L 86 20 156/81 100 Intake and Output 09/19/22 09/20/22 09/20/22 22:59 06:59 14:59 Intake Total 240 358 Balance 240 358 Intake: Oral 240 358 Other: Voiding Method External Catheter External Catheter Weight 62.7 kg Physical Exam: Revealed a 77-year-old white male in no distress, on 3 L nasal cannula with O2 saturations 98% Head: Atraumatic, normocephalic. HEENT:[Neck is supple.] [No neck masses.] [No thyromegaly.] [No JVD.] Patient looks relatively pale. Chest: Diminished breath sounds and dullness at the left base, right side is relatively clear. No rhonchi no wheezes Cardiac Exam: Regular rate and rhythm. [Distant S1 and S2, no S3 gallop, no murmur.] Abdomen: [Soft, nontender, no megaly, no rebound, no guarding, normal bowel sounds.] Extremities: [No clubbing, trace of bipedal edema, no cyanosis.] Neurological Exam: [No focal neurologic deficit.] Alert oriented 3. Psychiatric: Normal mood affect and normal mental status examination. Skin: No rashes. Results - Laboratory Findings CBC and BMP: 09/20/22 01:58 09/20/22 05:45 PT/INR, D-dimer PT 11.4 sec (9.0-12.0) 09/20/22 01:58 INR 1.1 (<1.2) 09/20/22 01:58 Abnormal lab findings: Abnormal Labs 09/20/22 09/20/22 09/20/22 01:58 01:58 01:58 RBC 4.05 L Hgb 12.3 L Hct 37.5 L Sodium Carbon Dioxide Creatinine Glucose Plasma Lactic Acid Kyle 2.3 H* Troponin I 0.120 H* Total Protein Albumin 09/20/22 09/20/22 09/20/22 02:50 05:45 09:58 RBC Hgb Hct Sodium 135 L Carbon Dioxide 20 L Creatinine 1.30 H Glucose 107 H 118 H Plasma Lactic Acid Kyle Troponin I 0.186 H* Total Protein 5.9 L Albumin 3.2 L - Diagnostic Findings Chest x-ray: image reviewed (As noted in HPI) Assessment and Plan Assessment: Impression: Acute on chronic systolic congestive heart failure, ejection fraction of 20%, patient has history of ischemic cardiomyopathy, BNP level on admission is over 49,000 Left sided pleural effusion felt to be cardiogenic in nature unless for otherwise History of underlying coronary artery disease and previous CABG as well as subsequent stenting History of AICD implantation Benign essential hypertension Dyslipidemia Former smoker History of ventricular tachycardia History of underlying COPD severity of which is not clear but his presentation does not seem to be a presentation of COPD exacerbation Degenerative joint disease History of obstructive sleep apnea syndrome History of nephrolithiasis. Recommendation: Continue diuretics, monitor renal status while on diuretics Discontinue antibiotics Resume cardiac medications Resume home meds Awaiting the results of the pleural effusion most likely it is going to be acosta sudative in nature Consider discharge planning in the next 24 hours if cleared by cardiology. We will continue to follow. Time with Patient: Greater than 30
[2022-09-20] MEDS: ASPIRIN 81 MG PO SCH (12:35)
[2022-09-20] MEDS: carvediloL 12.5 MG TAB PO SCH ×2 (12:35→19:32)
[2022-09-20] MEDS: SOTALOL 80 MG TAB PO SCH ×2 (12:35→20:38)
[2022-09-20] MEDS: CLOPIDOGREL 75 MG TAB PO SCH (12:35)
[2022-09-20] MEDS ORDERED: NITROGLYCERIN SL TABS 0.4 MG TAB SUBLINGUAL PRN (12:52)
[2022-09-20] MEDS ORDERED: ALPRAZolam 0.5 MG TAB PO PRN (12:52)
--- NOTE | 2022-09-20 13:01 | P.HPIM ---
History of Present Illness H&P Date: 09/20/22 Chief Complaint: Shortness of breath 77-year-old gentleman with past medical history significant for coronary artery disease, history of ischemic cardiomyopathy history of ASCVD, cardiac arrhythmia hypertension hyperlipidemia previous history of smoking presented to the [facility] because of shortness of breath. At the time of presentation in ER patient also complained of mild chest discomfort which prompted a cardiology evaluation. Patient had a chest x-ray done which showed pulmonary vascular congestion hence patient was started on IV Lasix. Workup initiated in ER included an EKG, white blood cell count was within normal limits troponin was elevated at 0.120. Patient had a chest ultrasound done in ER which showed left pleural effusion, no right pleural effusion was noted, chest accidental finding consistent with COPD Review of Systems Constitutional: Denies chills, Denies fever Cardiovascular: Reports chest pain, Reports shortness of breath Neurological: Denies as per HPI, Denies aphasia, Denies ataxia, Denies balance difficulties, Denies burning pain, Denies change in mentation, Denies change in smell/taste, Denies change in speech, Denies confusion, Denies convulsions, Denies double vision, Denies gait dysfunction, Denies head injury, Denies head aches, Denies hearing difficulties, Denies lack of coordination, Denies loss of vision, Denies memory loss, Denies migraines, Denies motor disturbance, Denies numbness, Denies paralysis, Denies paresthesias, Denies seizures, Denies sensory deficit, Denies spasticity, Denies syncope, Denies tic, Denies tingling, Denies transient paralysis, Denies tremors, Denies vertigo, Denies weakness, Denies vis ual changes Psychiatric: Denies anxiety, Denies depression Endocrine: Denies fatigue, Denies weight change Past Medical History Past Medical History: Coronary Artery Disease (CAD), Chest Pain / Angina, COPD, Hyperlipidemia, Hypertension, Myocardial Infarction ([place]), Musculoskeletal Disorder, Osteoarthritis (OA), Prostate Disorder, Sleep Apnea/CPAP/BIPAP Additional Past Medical History / Comment(s): HH, fibromyalgia, anemia, hypogonadism, vtach, NSTEMI 10/20/19, CPAP use, Inogen portable. Kidney stones; left flank pain, chronic toni shoulder pain, states has numbness rt arm, recent adm. for chest pain, difficulty swallowing & weight loss Last Myocardial Infarction Date:: 10/20/19 History of Any Multi-Drug Resistant Organisms: None Reported Past Surgical History: Adenoidectomy, AICD, Back Surgery, Cholecystectomy, Coronary Bypass/CABG, Heart Catheterization, Hernia Repair, Orthopedic Surgery, Tonsillectomy Additional Past Surgical History / Comment(s): CABG x3 in 1999, rhinoplasty, ACDF 2, left bunionectomy, Lasik, lipoma from left shoulder 2, colonoscopy 5 years ago, hernia repair. pacer Past Anesthesia/Blood Transfusion Reactions: No Reported Reaction Type of Cardiac Device: AICD Device Placement Date:: 12/12/19 Past Psychological History: No Psychological Hx Reported Smoking Status: Former smoker Past Alcohol Use History: None Reported Additional Past Alcohol Use History / Comment(s): Quit smoking 1985, smoked 2ppd from age 14 Past Drug Use History: None Reported - Past Family History Mother Family Medical History: Cancer, Coronary Artery Disease (CAD) Father Family Medical History: Cancer Brother(s) Family Medical History: Congestive Heart Failure (CHF), Coronary Artery Disease (CAD) Sister(s) Family Medical History: Congestive Heart Failure (CHF) Medications and Allergies Home Medications Medication Instructions Recorded Confirmed Type Aspirin 81 mg PO DAILY chew 10/26/19 09/20/22 Rx Clopidogrel [Plavix] 75 mg PO DAILY #30 tab 10/26/19 09/20/22 Rx Furosemide [Lasix] 40 mg PO DAILY #30 tab 10/26/19 09/20/22 Rx Nitroglycerin Sl Tabs [Nitrostat] 0.4 mg SUBLINGUAL Q5M PRN #25 tab 10/26/19 09/20/22 Rx Vit C/E/Zn/Coppr/Lutein/Zeaxan 1 cap PO BID 12/08/19 09/20/22 History [Preservision Areds 2 Softgel] Atorvastatin [Lipitor] 80 mg PO HS 08/10/21 09/20/22 History DULoxetine HCL [Cymbalta] 60 mg PO DAILY 08/10/21 09/20/22 History Potassium Citrate [Urocit-K] 10 meq PO BID 08/10/21 09/20/22 History carvediloL [Coreg*] 12.5 mg PO BID-W/MEALS #180 tab 08/12/21 09/20/22 Rx lisinopriL [Zestril] 5 mg PO HS #90 tab 08/22/21 09/20/22 Rx Lidocaine 5% Patch [Lidoderm 5% 1 patch TOPICAL DAILY 06/13/22 09/20/22 History Patch] Multivitamins, Thera [Multivitamin 1 tab PO DAILY 06/13/22 09/20/22 History (formulary)] Sotalol [Betapace] 80 mg PO BID 06/13/22 09/20/22 History oxyCODONE-APAP 10-325MG [Percocet 1 tab PO Q4HR PRN 06/13/22 09/20/22 History 10-325 mg] Cholecalciferol [Vitamin D3 (25 50 mcg PO DAILY 30 Days #30 tab 06/19/22 09/20/22 Rx Mcg = 1000 Iu)] ALPRAZolam [Xanax] 0.5 mg PO BID PRN 09/20/22 09/20/22 History Ascorbic Acid [Vitamin C] 500 mg PO DAILY 09/20/22 09/20/22 History Allergies Allergy/AdvReac Type Severity Reaction Status Date / Time Iodinated Contrast Media AdvReac Unknown Verified 09/20/22 10:59 Physical Exam Vitals: Vital Signs Temp Pulse Pulse Resp BP BP Pulse Ox 09/20/22 08:00 98.5 F 70 22 168/81 98 09/20/22 04:37 78 18 09/20/22 04:10 97.6 F 78 18 153/85 97 09/20/22 03:37 98.6 F 82 20 139/75 100 09/20/22 01:43 97.4 F L 86 20 156/81 100 Intake and Output 09/19/22 09/20/22 09/20/22 22:59 06:59 14:59 Intake Total 240 358 Balance 240 358 Intake: Oral 240 358 Other: Voiding Method External Catheter External Catheter Weight 62.7 kg PHYSICAL EXAMINATION: GENERAL: The patient is alert and oriented x3, not in any acute distress. Well developed, well nourished. Nasal cannula in place, ill appearance HEENT: Pupils are round and equally reacting to light. EOMI. No scleral icterus. No conjunctival pallor. Normocephalic, atraumatic. No pharyngeal erythema. No thyromegaly. CARDIOVASCULAR: S1 and S2 present. No murmurs, rubs, or gallops. PULMONARY: Decreased breath sounds bilaterally left more than right ABDOMEN: Soft, nontender, nondistended, normoactive bowel sounds. No palpable organomegaly. MUSCULOSKELETAL: No joint swelling or deformity. EXTREMITIES: No cyanosis, clubbing, or pedal edema. NEUROLOGICAL: Gross neurological examination did not reveal any focal deficits. SKIN: No rashes. Results CBC & Chem 7: 09/20/22 01:58 09/20/22 05:45 Labs: Abnormal Lab Results - Last 24 Hours (Table) 09/20/22 09/20/22 09/20/22 Range/Units 01:58 01:58 01:58 RBC 4.05 L (4.30-5.90) m/uL Hgb 12.3 L (13.0-17.5) gm/dL Hct 37.5 L (39.0-53.0) % Sodium (137-145) mmol/L Carbon Dioxide (22-30) mmol/L Creatinine (0.66-1.25) mg/dL Glucose (74-99) mg/dL Plasma Lactic Acid Kyle 2.3 H* (0.7-2.0) mmol/L Troponin I 0.120 H* (0.000-0.034) ng/mL Total Protein (6.3-8.2) g/dL Albumin (3.5-5.0) g/dL 09/20/22 09/20/22 09/20/22 Range/Units 02:50 05:45 09:58 RBC (4.30-5.90) m/uL Hgb (13.0-17.5) gm/dL Hct (39.0-53.0) % Sodium 135 L (137-145) mmol/L Carbon Dioxide 20 L (22-30) mmol/L Creatinine 1.30 H (0.66-1.25) mg/dL Glucose 107 H 118 H (74-99) mg/dL Plasma Lactic Acid Kyle (0.7-2.0) mmol/L Troponin I 0.186 H* (0.000-0.034) ng/mL Total Protein 5.9 L (6.3-8.2) g/dL Albumin 3.2 L (3.5-5.0) g/dL Thrombosis Risk Factor Assmnt - Choose All That Apply Each Factor Represents 1 point: Heart failure (<1month) Each Risk Factor Represents 3 Points: Age 75 years or older Thrombosis Risk Factor Assessment Total Risk Factor Score: 4 Thrombosis Risk Factor Assessment Level: Moderate Risk Assessment and Plan Assessment: * Acute on chronic congestive heart failure systolic dysfunction with ejection fraction of 20% * Acute hypoxic respiratory failure secondary to CHF exacerbation * Elevated troponin rule out ACS * Left-sided pleural effusion * Cornoary artery disease history of CABG, ischemic cardiomyopathy, status post AICD * Hypertension * Lipidemia PLAN * Continue to trend troponin, pulmonary medicine and cardiology consulted, * Continue patient on aspirin, Lipitor, Plavix * Continue IV Lasix monitor intake and output and daily weights * Continue patient on sotalol and Coreg for history of nonsustained V. tach * Optimize electrolyte
[2022-09-20] MEDS: LIDOCAINE 5% PATCH TOPICAL SCH (17:18)
[2022-09-20] MEDS: POTASSIUM CITRATE 10 MEQ TABLET.ER PO SCH (20:38)
[2022-09-20] MEDS: ATORVASTATIN 80 MG TAB PO SCH (20:38)
[2022-09-20] MEDS ORDERED: lisinopriL 5 MG TAB PO SCH (21:00)
[2022-09-20 22:09] LABS: Glucose, BF Source Pleural Fluid; Glucose, Body Fluid 126 mg/dL; LDH, Body Fluid Source Pleural Fluid; T. Protein, Body Fluid Source Pleural Fluid; Total Protein, Body Fluid 1620 mg/dL
[2022-09-20 22:25] LABS: Appearance,BF Cloudy
[2022-09-21 06:03] LABS: HCT 34.5 % (39.0-53.0); HGB 11.1 gm/dL (13.0-17.5); MCH 29.7 pg (25.0-35.0); MCHC 32.4 g/dL (31.0-37.0); MCV 91.7 fL (80.0-100.0); Mean Platelet Volume 9.7; Platelet Count 185 k/uL (150-450); RBC 3.76 m/uL (4.30-5.90); RDW 14.2 % (11.5-15.5); WBC 5.9 k/uL (3.8-10.6)
[2022-09-21 06:11] LABS: Calcium 8.5 mg/dL (8.4-10.2); Magnesium 1.8 mg/dL (1.6-2.3); Potassium 3.7 mmol/L (3.5-5.1)
[2022-09-21] MEDS: carvediloL 12.5 MG TAB PO SCH ×2 (08:05→17:33)
[2022-09-21] MEDS: CLOPIDOGREL 75 MG TAB PO SCH (09:12)
[2022-09-21] MEDS: FUROSEMIDE 40 MG TAB PO SCH ×2 (09:12→21:37)
[2022-09-21] MEDS: POTASSIUM CITRATE 10 MEQ TABLET.ER PO SCH ×2 (09:12→21:37)
[2022-09-21] MEDS: LIDOCAINE 5% PATCH TOPICAL SCH (09:12)
[2022-09-21] MEDS: DULoxetine HCL 60 MG CAPSULE.DR PO SCH (09:12)
[2022-09-21] MEDS: SOTALOL 80 MG TAB PO SCH ×2 (09:12→21:37)
[2022-09-21] MEDS: ASPIRIN 81 MG PO SCH (09:16)
[2022-09-21 09:33] VITALS: RESP 16
--- NOTE | 2022-09-21 11:04 | P.PN ---
Subjective Progress Note Date: 09/21/22 Principal diagnosis: Pleural effusion/CHF. This is a 77-year-old white male with history of multiple medical problems including severe ischemic cardiomyopathy, ejection fraction of 20%, history of previous CABG, AICD placement, ventricular tachycardia, hypertension, former smoker, patient presented to the hospital with chief complaint of shortness of breath, dry cough, has been going on for the last 3-4 days. No fever, no chills, no hemoptysis, no chest pain. Chest x-ray on admission showed cardiomegaly, and left-sided pleural effusion with atelectasis secondary to pleural effusion. Patient was admitted and this consult was initiated. Ultrasound of the chest showed relatively good sized left-sided pleural effusion hence I saw the patient and performed a diagnostic and therapeutic left-sided thoracentesis and I was able to drain over 650 mL of relatively clear fluid but grossly seems to be transudative in nature patient felt much better after the procedure in the meantime the patient remains on diuretics for presumptive systolic congestive heart failure. Progress note dated 09/21/2022. 77-year-old male seen today in room 361. The patient was admitted with a diagnosis of shortness of breath, secondary to CHF. He had a left pleural effusion which was drained by my partner yesterday. 650 mL was removed. The patient is feeling much better. He is not receiving any IV fluids. He is on 3 L of oxygen. He was eating his breakfast and we saw him this morning. White count 5.9, hemoglobin 11.1, hematocrit 34.5, with a normal platelet count. Sodium 136, potassium 3.7, chlorides 102, CO2 27, BUN 19, creatinine 1.36. Troponins were 0.186, and 0.173. The fluid appears to be a transudate, as the LDH is only 83, and the protein is 1.62 g. Objective - Vital Signs Vital signs: Vital Signs Temp 97.7 F 09/21/22 08:50 Pulse 52 L 09/21/22 08:50 Resp 16 09/21/22 08:50 BP 140/63 09/21/22 08:50 Pulse Ox 98 09/21/22 08:50 FiO2 Intake & Output 09/20/22 09/21/22 09/21/22 18:59 06:59 18:59 Intake Total 778 118 Output Total 2700 800 350 Balance -1922 -800 -232 Weight 59.9 kg Intake: Oral 778 118 Output: Drainage 650 Left Chest 650 Urine 2049 800 350 Other: Voiding Method External Catheter External Catheter External Catheter - Exam No acute distress, oriented 3. No obvious respiratory distress. Currently on 3 L of oxygen. HEENT examination is grossly unremarkable. Neck supple. Full range of motion. No adenopathy thyromegaly or neck vein distention. Cardiovascular examination reveals regular rhythm rate. S1-S2 normal. No S3 or S4. No discernible murmur noted. Heart sounds are distant. Heart rate 52 bpm. Lungs reveal mostly clear breath sounds. Minimal rhonchi. No wheezes or crackles. Breath sounds equal bilaterally. 3 L saturation is 98%. Abdomen soft bowel sounds are heard. No masses or tenderness. Extremities are intact. No cyanosis clubbing or edema. Skin is without rash or lesion. Neurologic examination is brief but nonfocal. - Labs CBC & Chem 7: 09/21/22 05:42 09/21/22 05:42 Labs: Abnormal Lab Results - Last 24 Hours (Table) 09/20/22 09/20/22 09/21/22 Range/Units 09:58 12:25 05:42 RBC (4.30-5.90) m/uL Hgb (13.0-17.5) gm/dL Hct (39.0-53.0) % Sodium 136 L (137-145) mmol/L Creatinine 1.36 H (0.66-1.25) mg/dL Troponin I 0.186 H* 0.173 H* (0.000-0.034) ng/mL 09/21/22 Range/Units 05:42 RBC 3.76 L (4.30-5.90) m/uL Hgb 11.1 L (13.0-17.5) gm/dL Hct 34.5 L (39.0-53.0) % Sodium (137-145) mmol/L Creatinine (0.66-1.25) mg/dL Troponin I (0.000-0.034) ng/mL Assessment and Plan Assessment: Acute on chronic systolic CHF, ejection fraction of 20%, and a patient with ischemic cardiomyopathy. Left-sided pleural effusion, status post thoracentesis. History of CAD with previous bypass grafting. Previous history of PCI/stent. History of AICD placement. Essential hypertension. Hyperlipidemia. Previous history of tobacco use. History of ventricular tachycardia. Probable COPD. DJD. Sleep apnea syndrome. History of nephrolithiasis. Plan: Plan dated 09/21/2022. The fluid removed yesterday, was a transudate. The LDH and protein are quite low. This is consistent with a pleural fluid accumulation secondary to CHF. The patient is doing better. The patient's on 3 L of oxygen. Labs, x-rays, and medications are reviewed. We will continue to follow and make recommendations along the way. Prognosis is guarded. Time with Patient: Less than 30
--- NOTE | 2022-09-21 12:13 | P.PN ---
Subjective Progress Note Date: 09/21/22 Principal diagnosis: Shortness of breath, CHF exacerbation SUBJECTIVE : Patient seen and bedside patient's her breathing is improved after thoracentesis. 650 mL of fluid was removed from left lung on 09/20 REVIEW OF SYSTEMS: NEGATIVE EXCEPT FOR shortness of breath and weakness CONSTITUTIONAL: No fever, no malaise, no fatigue. HEENT: No recent visual problems or hearing problems. Denied any sore throat. CARDIOVASCULAR: No chest pain, orthopnea, PND, no palpitations, no syncope. PULMONARY: Shortness of breath, cough GASTROINTESTINAL: No diarrhea, no nausea, no vomiting, no abdominal pain. NEUROLOGICAL: No headaches, no weakness, no numbness. HEMATOLOGICAL: Denies any bleeding or petechiae. GENITOURINARY: Denies any burning micturition, frequency, or urgency. MUSCULOSKELETAL/RHEUMATOLOGICAL: Denies any joint pain, swelling, or any muscle pain. ENDOCRINE: Denies any polyuria or polydipsia. The rest of the 14-point review of systems is negative. PHYSICAL EXAMINATION: GENERAL: The patient is alert and oriented x3, not in any acute distress. Well developed, well nourished. HEENT: Pupils are round and equally reacting to light. EOMI. No scleral icterus. No conjunctival pallor. Normocephalic, atraumatic. No pharyngeal erythema. No thyromegaly. CARDIOVASCULAR: S1 and S2 present. No murmurs, rubs, or gallops. PULMONARY: Decreased breath sounds bilaterally, crackles audible ABDOMEN: Soft, nontender, nondistended, normoactive bowel sounds. No palpable organomegaly. MUSCULOSKELETAL: No joint swelling or deformity. EXTREMITIES: No cyanosis, clubbing, or pedal edema. NEUROLOGICAL: Gross neurological examination did not reveal any focal deficits. SKIN: No rashes. ASSESMENT & PLAN * Acute on chronic congestive heart failure systolic dysfunction with ejection fraction of 20% * Acute hypoxic respiratory failure secondary to CHF exacerbation * Elevated troponin rule out ACS * Left-sided pleural effusion * Cornoary artery disease history of CABG, ischemic cardiomyopathy, status post AICD * Hypertension * Dyslipidemia PLAN * pulmonary medicine and cardiology consulted * Status postthoracentesis left lung 650 and will of fluid removed. Continue patient on Lasix monitor intake and output. Transitive pleural effusion likely secondary to CHF * Continue patient on aspirin, Lipitor, Plavix * Continue Lasix monitor intake and output * Continue patient on sotalol and Coreg for history of nonsustained V. tach * Optimize electrolyte Objective - Vital Signs Vital signs: Vital Signs Temp 97.7 F 09/21/22 08:50 Pulse 52 L 09/21/22 08:50 Resp 16 09/21/22 08:50 BP 140/63 09/21/22 08:50 Pulse Ox 98 09/21/22 08:50 FiO2 Intake & Output 09/20/22 09/21/22 09/21/22 18:59 06:59 18:59 Intake Total 778 118 Output Total 2700 800 350 Balance -1922 -800 -232 Weight 59.9 kg Intake: Oral 778 118 Output: Drainage 650 Left Chest 650 Urine 2050 800 350 Other: Voiding Method External Catheter External Catheter External Catheter - Labs CBC & Chem 7: 09/21/22 05:42 09/21/22 05:42 Labs: Abnormal Lab Results - Last 24 Hours (Table) 09/20/22 09/21/22 09/21/22 Range/Units 12:25 05:42 05:42 RBC 3.76 L (4.30-5.90) m/uL Hgb 11.1 L (13.0-17.5) gm/dL Hct 34.5 L (39.0-53.0) % Sodium 136 L (137-145) mmol/L Creatinine 1.36 H (0.66-1.25) mg/dL Troponin I 0.173 H* (0.000-0.034) ng/mL
--- NOTE | 2022-09-21 13:31 | P.PN ---
Subjective Progress Note Date: 09/21/22 HISTORY OF PRESENT ILLNESS: This is a 77-year-old male with a past medical history significant for or near disease with previous CABG, ischemic cardiomyopathy, AICD implantation, lori tricular tachycardia, hypertension, hyperlipidemia, and former nicotine dependence. Patient follows in the office with Dr. Chisholm. We have been asked to see the patient in consultation for congestive heart failure. Patient examined at the bedside. Patient presented to the hospital with a chief complaint of shortness of breath. Patient states he has been feeling short of breath for the past 3-4 days. He reports a cough. He denies any sputum production. He denies any fever or chills. He also reports having mild chest discomfort along with the shortness of breath. Patient presented to the hospital and was found to be in acute congestive heart failure. He was started on IV Lasix. The patient states he has been taking his medications at home regularly. He states he tries his best to follow a low-sodium diet. * EKG reveals paced rhythm * Chest xray COPD with left lower lobe infiltrate and small effusion * Chest ultrasound: Left pleural effusion amenable to thoracentesis. No significant right pleural effusion. * Laboratory data: WBC 7.4. Hemoglobin 12.3. Platelet count 129. Sodium 135. Potassium 4.7. BUN 17. Creatinine 1.15. Lactic acid 2.3. Repeat 1.9. Troponin 0.120. ProBNP 49,900. * Current home cardiac medications include: Home medication list has not been verified at the time of this dictation * Most recent echocardiogram obtained in June 2022 * Cardiac catheterization history: August 2021 with Impala supported PCI of the left main and circumflex 09/21 Patient is seen today in follow-up. He is currently on oral Lasix 40 mg twice daily and resumed on his home cardiac medications. Patient states he feels much improved after thoracentesis left side was in yesterday with removal 650 ML's. Repeat blood work reveals BUN 19, creatinine 1.36, potassium 3.7, hemoglobin 11.1. He is currently on O2 at 3 L and he states he normally wears 2-3 L. PHYSICAL EXAM: VITAL SIGNS: Reviewed. GENERAL: Well-developed in no acute distress. HEENT: Head is normocephalic. Pupils are equal, round. Sclerae anicteric. Mucous membranes of the mouth are moist. Neck supple. No JVD or thyromegaly LUNGS: Respirations even and unlabored. Lungs few scattered rhonchi. HEART: Regular rate and rhythm. S1 and S2 heard. ABDOMEN: Soft. Nondistended. Nontender. EXTREMITIES: Normal range of motion. No clubbing or cyanosis. Peripheral pulse s intact. Trace lower extremity edema NEUROLOGIC: Awake and alert. Oriented x 3. ASSESSMENT: Shortness of breath Acute on chronic congestive heart failure with reduced ejection fraction, EF 20% Abnormal troponin, likely secondary to above, no evidence of acute coronary syndrome Left pleural effusion Coronary artery disease with previous CABG and subsequent stenting Ischemic cardiomyopathy History of AICD implantation History of ventricular tachycardia Hypertension Hyperlipidemia Former nicotine dependence PLAN: No need to repeat echocardiogram as this was performed in June 2022 Pulmonary consulted status post left-sided thoracentesis Continue PO Lasix Daily weights, accurate I&O, and monitoring of kidney function Continue patient's home cardiac medications Patient is cleared from cardiology for discharge home and may follow-up in the office with Dr. Ye Chisholm in one to 2 weeks Nurse practitioner note has been reviewed by physician. Signing provider agrees with the documented findings, assessment, and plan of care. Objective - Vital Signs Vital signs: Vital Signs Temp 97.7 F 09/21/22 08:50 Pulse 52 L 09/21/22 08:50 Resp 16 09/21/22 08:50 BP 140/63 09/21/22 08:50 Pulse Ox 98 09/21/22 08:50 FiO2 Intake & Output 09/20/22 09/21/22 09/21/22 18:59 06:59 18:59 Intake Total 778 Output Total 2700 800 Balance -1921 Weight 59.9 kg Intake: Oral 778 Output: Drainage 650 Left Chest 650 Urine 2050 800 Other: Voiding Method External Catheter External Catheter External Catheter - Labs CBC & Chem 7: 09/21/22 05:42 09/21/22 05:42 Labs: Abnormal Lab Results - Last 24 Hours (Table) 09/20/22 09/20/22 09/20/22 Range/Units 05:45 09:58 12:25 RBC (4.30-5.90) m/uL Hgb (13.0-17.5) gm/dL Hct (39.0-53.0) % Sodium (137-145) mmol/L Creatinine 1.30 H (0.66-1.25) mg/dL Glucose 118 H (74-99) mg/dL Troponin I 0.186 H* 0.173 H* (0.000-0.034) ng/mL 09/21/22 09/21/22 Range/Units 05:42 05:42 RBC 3.76 L (4.30-5.90) m/uL Hgb 11.1 L (13.0-17.5) gm/dL Hct 34.5 L (39.0-53.0) % Sodium 136 L (137-145) mmol/L Creatinine 1.36 H (0.66-1.25) mg/dL Glucose (74-99) mg/dL Troponin I (0.000-0.034) ng/mL
--- NOTE | 2022-09-21 14:36 | CA ---
Transthoracic Echo Report Name: Trino Brandt Age: 77 Gender: M : 1945 Exam Date: 09/21/2022 10:49 Exam Location: [place] [facility] Ht (in): Wt (lb): Ordering Physician: Tash Perry MD Attending/Referring Phys: Program Lead Nilay Burr RDCS Procedure CPT: Indications: Heart failure Cardiac Hx: CABG, stents, AICD Technical Quality: Fair Contrast 1: Total Dose (mL): Contrast 2: Total Dose (mL): MEASUREMENTS (Male / Female) Normal Values 2D ECHO LV Diastolic Diameter PLAX 6.6 cm 4.2 - 5.9 / 3.9 - 5.3 cm LV Systolic Diameter PLAX 6.6 cm IVS Diastolic Thickness 1.2 cm 0.6 - 1.0 / 0.6 - 0.9 cm LVPW Diastolic Thickness 1.3 cm 0.6 - 1.0 / 0.6 - 0.9 cm LV Relative Wall Thickness 0.4 RV Internal Dim ED PLAX 3.0 cm LA Volume 84.0 cm??? 18 - 58 / 22 - 52 cm??? DOPPLER AV Peak Velocity 150.0 cm/s AV Peak Gradient 9.0 mmHg AI Peak Velocity 353.4 cm/s AI Peak Gradient 49.9 mmHg AI Pressure Half Time 748.5 ms LVOT Peak Velocity 89.4 cm/s LVOT Peak Gradient 3.2 mmHg MV Area PHT 2.0 cm??? MR Peak Velocity 361.6 cm/s MR Peak Gradient 52.3 mmHg Mitral E Point Velocity 66.9 cm/s Mitral A Point Velocity 60.5 cm/s Mitral E to A Ratio 1.1 MV Deceleration Time 384.6 ms TR Peak Velocity 329.5 cm/s TR Peak Gradient 43.4 mmHg PV Peak Velocity 62.4 cm/s PV Peak Gradient 1.6 mmHg FINDINGS Left Ventricle Mildly increased septal wall thickness. Moderately increased left ventricular diastolic diameter. Abnormal left ventricular diastolic filling pattern. Left ventricular ejection fraction is estimated at less than 20 %. Right Ventricle Normal right ventricular size. Right Atrium Catheter/pacemaker wire in the right atrial cavity. Left Atrium Severely increased left atrial volume. Mitral Valve Mitral valve thickened. Mitral annular calcification. [id number] mitral regurgitation. Aortic Valve Trileaflet aortic valve. Tricuspid Valve Moderate tricuspid regurgitation. Pulmonic Valve Trace pulmonic regurgitation. Pericardium No pericardial or pleural effusion. Aorta Moderate aortic dilatation at the level of the sinuses of valsalva (root). Mild aortic dilatation at the level of the sinotubular junction. Moderately dilated proximal ascending aorta (tube). CONCLUSIONS Severe LV dysfunction, dilated LV, moderate aortic regurgitation Dilated aortic root and ascending aorta Previewed by: Dr. Hunter Perez MD (Electronically Signed) Final Date: 21 September 2022 14:35
[2022-09-21] MEDS: oxyCODONE-APAP 10-325MG 1 EACH TAB PO PRN (21:36)
[2022-09-21] MEDS: ATORVASTATIN 80 MG TAB PO SCH (21:37)
[2022-09-22] MEDS: oxyCODONE-APAP 10-325MG 1 EACH TAB PO PRN ×4 (06:30→23:42)
[2022-09-22] MEDS: carvediloL 12.5 MG TAB PO SCH ×2 (06:33→17:40)
[2022-09-22] MEDS: DULoxetine HCL 60 MG CAPSULE.DR PO SCH (09:00)
[2022-09-22] MEDS: POTASSIUM CITRATE 10 MEQ TABLET.ER PO SCH ×2 (09:00→20:21)
[2022-09-22] MEDS: FUROSEMIDE 40 MG TAB PO SCH ×2 (09:00→20:20)
[2022-09-22] MEDS: ASPIRIN 81 MG PO SCH (09:00)
[2022-09-22] MEDS: CLOPIDOGREL 75 MG TAB PO SCH (09:00)
[2022-09-22] MEDS: LIDOCAINE 5% PATCH TOPICAL SCH (09:00)
[2022-09-22] MEDS: SOTALOL 80 MG TAB PO SCH ×2 (09:01→20:21)
--- NOTE | 2022-09-22 10:55 | P.PN ---
Subjective Progress Note Date: 09/22/22 Principal diagnosis: Pleural effusion/CHF. This is a 77-year-old white male with history of multiple medical problems including severe ischemic cardiomyopathy, ejection fraction of 20%, history of previous CABG, AICD placement, ventricular tachycardia, hypertension, former smoker, patient presented to the hospital with chief complaint of shortness of breath, dry cough, has been going on for the last 3-4 days. No fever, no chills, no hemoptysis, no chest pain. Chest x-ray on admission showed cardiomegaly, and left-sided pleural effusion with atelectasis secondary to pleural effusion. Patient was admitted and this consult was initiated. Ultrasound of the chest showed relatively good sized left-sided pleural effusion hence I saw the patient and performed a diagnostic and therapeutic left-sided thoracentesis and I was able to drain over 650 mL of relatively clear fluid but grossly seems to be transudative in nature patient felt much better after the procedure in the meantime the patient remains on diuretics for presumptive systolic congestive heart failure. Progress note dated 09/21/2022. 77-year-old male seen today in room 361. The patient was admitted with a diagnosis of shortness of breath, secondary to CHF. He had a left pleural effusion which was drained by my partner yesterday. 650 mL was removed. The patient is feeling much better. He is not receiving any IV fluids. He is on 3 L of oxygen. He was eating his breakfast and we saw him this morning. White count 5.9, hemoglobin 11.1, hematocrit 34.5, with a normal platelet count. Sodium 136, potassium 3.7, chlorides 102, CO2 27, BUN 19, creatinine 1.36. Troponins were 0.186, and 0.173. The fluid appears to be a transudate, as the LDH is only 83, and the protein is 1.62 g. Progress note dated 09/22/2022. 77-year-old male seen today in room 361. The patient was admitted with a diag nosis of shortness of breath, secondary to CHF, and left-sided pleural effusion. The patient did have a left-sided thoracentesis done by my partner, over this past weekend. He remains on oxygen at 3 L. He is not receiving any IV fluids. The patient states that he'll be discharged likely tomorrow. His been some changes in his medications apparently which are keeping him here in the hospital. No new lab data today. The fluid analysis shows a very low LDH and protein, consistent with a transudate. Objective - Vital Signs Vital signs: Vital Signs Temp 98.2 F 09/22/22 04:06 Pulse 55 L 09/22/22 06:32 Resp 16 09/22/22 04:06 BP 118/58 09/22/22 06:32 Pulse Ox 96 09/22/22 08:50 FiO2 Intake & Output 09/21/22 09/22/22 09/22/22 18:59 06:59 18:59 Intake Total 486 Output Total 750 700 300 Balance -264 -700 -300 Weight 59.9 kg 60.1 kg Intake: Oral 486 Output: Urine 750 700 300 Other: Voiding Method External Catheter External Catheter # Bowel Movements 0 - Exam No acute distress, oriented 3. No obvious respiratory distress. Currently on 3 L of oxygen. HEENT examination is grossly unremarkable. Neck supple. Full range of motion. No adenopathy thyromegaly or neck vein distention. Cardiovascular examination reveals regular rhythm rate. S1-S2 normal. No S3 or S4. No discernible murmur noted. Heart sounds are distant. Heart rate 55 bpm. Lungs reveal mostly clear breath sounds. Minimal rhonchi. No wheezes or crackles. Breath sounds equal bilaterally. 3 L saturation is 97 %. Abdomen soft bowel sounds are heard. No masses or tenderness. Extremities are intact. No cyanosis clubbing or edema. Skin is without rash or lesion. Neurologic examination is brief but nonfocal. - Labs CBC & Chem 7: 09/21/22 05:42 09/21/22 05:42 Labs: Microbiology - Last 24 Hours (Table) 09/20/22 09:30 Gram Stain - Preliminary Pleural Fluid Body Fluid Culture - Preliminary 09/20/22 09:30 Acid Fast Bacilli Culture - Preliminary Pleural Fluid 09/20/22 09:30 Fungal Culture - Preliminary Pleural Fluid Assessment and Plan Assessment: Acute on chronic systolic CHF, ejection fraction of 20%, and a patient with ischemic cardiomyopathy. Left-sided pleural effusion, status post thoracentesis. History of CAD with previous bypass grafting. Previous history of PCI/stent. History of AICD placement. Essential hypertension. Hyperlipidemia. Previous history of tobacco use. History of ventricular tachycardia. Probable COPD. DJD. Sleep apnea syndrome. History of nephrolithiasis. Plan: Plan dated 09/21/2022. The fluid removed yesterday, was a transudate. The LDH and protein are quite low. This is consistent with a pleural fluid accumulation secondary to CHF. The patient is doing better. The patient's on 3 L of oxygen. Labs, x-rays, and medications are reviewed. We will continue to follow and make recommendations along the way. Prognosis is guarded. Plan dated 09/22/2022. The patient had a thoracentesis performed on the left side, on Wednesday. 650 mL was removed. The fluid analysis revealed a transudate. The patient is likely to be discharged in the next 24-48 hours. No new labs today. He remains on 3 L of oxygen. We will continue to follow the patient along, and make recommendat ions along the way. Overall prognosis remains guarded. Fluid cytology is currently pending, but likely negative. Time with Patient: Less than 30
--- NOTE | 2022-09-22 12:21 | P.PN ---
Subjective Progress Note Date: 09/22/22 Principal diagnosis: Shortness of breath, CHF exacerbation SUBJECTIVE : Patient seen and bedside patient's her breathing is improved after thoracentesis. 650 mL of fluid was removed from left lung on 09/20, plan to start intrastromal by cardiology in 09/22 Noted to have bradycardia [employer] overnight expected discharge within the next 24 hours REVIEW OF SYSTEMS: NEGATIVE EXCEPT FOR shortness of breath and weakness CONSTITUTIONAL: No fever, no malaise, no fatigue. HEENT: No recent visual problems or hearing problems. Denied any sore throat. CARDIOVASCULAR: No chest pain, orthopnea, PND, no palpitations, no syncope. PULMONARY: Shortness of breath, cough GASTROINTESTINAL: No diarrhea, no nausea, no vomiting, no abdominal pain. NEUROLOGICAL: No headaches, no weakness, no numbness. HEMATOLOGICAL: Denies any bleeding or petechiae. GENITOURINARY: Denies any burning micturition, frequency, or urgency. MUSCULOSKELETAL/RHEUMATOLOGICAL: Denies any joint pain, swelling, or any muscle pain. ENDOCRINE: Denies any polyuria or polydipsia. The rest of the 14-point review of systems is negative. PHYSICAL EXAMINATION: GENERAL: The patient is alert and oriented x3, not in any acute distress. Well developed, well nourished. HEENT: Pupils are round and equally reacting to light. EOMI. No scleral icterus. No conjunctival pallor. Normocephalic, atraumatic. No pharyngeal erythema. No thyromegaly. CARDIOVASCULAR: S1 and S2 present. No murmurs, rubs, or gallops. Bradycardia noted PULMONARY: Decreased breath sounds bilaterally, crackles audible ABDOMEN: Soft, nontender, nondistended, normoactive bowel sounds. No palpable organomegaly. MUSCULOSKELETAL: No joint swelling or deformity. EXTREMITIES: No cyanosis, clubbing, or pedal edema. NEUROLOGICAL: Gross neurological examination did not reveal any focal deficits. SKIN: No rashes. ASSESMENT & PLAN * Acute on chronic congestive heart failure systolic dysfunction with ejection fraction of 20% * Acute hypoxic respiratory failure secondary to CHF exacerbation * Elevated troponin>> type II AL * Left-sided pleural effusion * Cornoary artery disease history of CABG, ischemic cardiomyopathy, status post AICD * Hypertension * Dyslipidemia PLAN * pulmonary medicine and cardiology consulted * Status postthoracentesis left lung 650 and will of fluid removed. Continue patient on Lasix monitor intake and output. Transitive pleural effusion likely secondary to CHF>> cytology pending * Continue patient on aspirin, Lipitor, Plavix * Continue Lasix monitor intake and output * Continue patient on sotalol and Coreg for history of nonsustained V. tach>> continue to monitor for bradycardia * Patient started on intrastromal * Optimize electrolyte * Plan to discharge by 09/23/22 Will monitor while on ENTRESTO Objective - Vital Signs Vital signs: Vital Signs Temp 97.7 F 09/22/22 08:00 Pulse 51 L 09/22/22 08:00 Resp 16 09/22/22 08:00 BP 123/58 09/22/22 08:00 Pulse Ox 96 09/22/22 08:50 FiO2 Intake & Output 09/21/22 09/22/22 09/22/22 18:59 06:59 18:59 Intake Total 486 Output Total 750 700 300 Balance -264 -700 -300 Weight 59.9 kg 60.1 kg Intake: Oral 486 Output: Urine 750 700 300 Other: Voiding Method External Catheter External Catheter External Catheter # Bowel Movements 0 - Labs CBC & Chem 7: 09/21/22 05:42 09/21/22 05:42 Labs: Microbiology - Last 24 Hours (Table) 09/20/22 09:30 Gram Stain - Preliminary Pleural Fluid Body Fluid Culture - Preliminary 09/20/22 09:30 Acid Fast Bacilli Culture - Preliminary Pleural Fluid 09/20/22 09:30 Fungal Culture - Preliminary Pleural Fluid
[2022-09-22] MEDS: SACUBITRIL/VALSARTAN 24 MG-26 MG TABLET PO SCH ×2 (12:38→20:21)
[2022-09-22] MEDS: ATORVASTATIN 80 MG TAB PO SCH (20:20)
[2022-09-22] MEDS ORDERED: SACUBITRIL/VALSARTAN 24 MG-26 MG TABLET PO SCH (21:00)
--- NOTE | 2022-09-23 01:41 | PN ---
PROGRESS NOTE SUBJECTIVE: This is a gentleman, who has ischemic cardiomyopathy with previous multivessel PCI. I gave him a 48-hour or 36-hour holiday from losartan starting him on Entresto this afternoon and if he is doing well with that, he can be discharged. I will see him in the office in about a week. OBJECTIVE: VITAL SIGNS: Stable. CARDIAC: S1, S2 heard normally. Short systolic murmur noted. LUNGS: Revealed decent air entry. ABDOMEN: Unchanged. LOWER EXTREMITIES: Unchanged. PLAN: Hopefully discharge this evening if he tolerates Entresto one tablet b.i.d. MMODL / IJN: [id number] /
[2022-09-23] MEDS: oxyCODONE-APAP 10-325MG 1 EACH TAB PO PRN ×2 (08:07→21:12)
[2022-09-23] MEDS: ASPIRIN 81 MG PO SCH (08:07)
[2022-09-23] MEDS: CLOPIDOGREL 75 MG TAB PO SCH (08:08)
[2022-09-23] MEDS: POTASSIUM CITRATE 10 MEQ TABLET.ER PO SCH ×2 (08:08→21:11)
[2022-09-23] MEDS: SACUBITRIL/VALSARTAN 24 MG-26 MG TABLET PO SCH ×2 (08:08→21:11)
[2022-09-23] MEDS: SOTALOL 80 MG TAB PO SCH ×2 (08:08→21:11)
[2022-09-23] MEDS: DULoxetine HCL 60 MG CAPSULE.DR PO SCH (08:09)
[2022-09-23] MEDS: FUROSEMIDE 40 MG TAB PO SCH ×2 (08:09→21:11)
[2022-09-23] MEDS: LIDOCAINE 5% PATCH TOPICAL SCH (08:09)
[2022-09-23] MEDS: carvediloL 12.5 MG TAB PO SCH (10:15)
[2022-09-23] MEDS: carvediloL 3.125 MG TAB PO SCH ×2 (10:21→16:31)
--- NOTE | 2022-09-23 11:01 | P.PN ---
Subjective Progress Note Date: 09/23/22 Principal diagnosis: Pleural effusion/CHF. This is a 77-year-old white male with history of multiple medical problems including severe ischemic cardiomyopathy, ejection fraction of 20%, history of previous CABG, AICD placement, ventricular tachycardia, hypertension, former smoker, patient presented to the hospital with chief complaint of shortness of breath, dry cough, has been going on for the last 3-4 days. No fever, no chills, no hemoptysis, no chest pain. Chest x-ray on admission showed cardiomegaly, and left-sided pleural effusion with atelectasis secondary to pleural effusion. Patient was admitted and this consult was initiated. Ultrasound of the chest showed relatively good sized left-sided pleural effusion hence I saw the patient and performed a diagnostic and therapeutic left-sided thoracentesis and I was able to drain over 650 mL of relatively clear fluid but grossly seems to be transudative in nature patient felt much better after the procedure in the meantime the patient remains on diuretics for presumptive systolic congestive heart failure. Progress note dated 09/21/2022. 77-year-old male seen today in room 361. The patient was admitted with a diagnosis of shortness of breath, secondary to CHF. He had a left pleural effusion which was drained by my partner yesterday. 650 mL was removed. The patient is feeling much better. He is not receiving any IV fluids. He is on 3 L of oxygen. He was eating his breakfast and we saw him this morning. White count 5.9, hemoglobin 11.1, hematocrit 34.5, with a normal platelet count. Sodium 136, potassium 3.7, chlorides 102, CO2 27, BUN 19, creatinine 1.36. Troponins were 0.186, and 0.173. The fluid appears to be a transudate, as the LDH is only 83, and the protein is 1.62 g. Progress note dated 09/22/2022. 77-year-old male seen today in room 361. The patient was admitted with a diag nosis of shortness of breath, secondary to CHF, and left-sided pleural effusion. The patient did have a left-sided thoracentesis done by my partner, over this past weekend. He remains on oxygen at 3 L. He is not receiving any IV fluids. The patient states that he'll be discharged likely tomorrow. His been some changes in his medications apparently which are keeping him here in the hospital. No new lab data today. The fluid analysis shows a very low LDH and protein, consistent with a transudate. Progress note dated 09/23/2022. 77-year-old male seen today in room 361. The patient was admitted with a diagnosis of shortness of breath, secondary to CHF, and left-sided pleural effusion. The patient did have a left-sided thoracentesis by my partner his past weekend. Currently, the patient's on room air. He is not receiving any IV fluids. Room air saturation is 94%. No new labs to report. No recent chest x- ray to report. Pleural fluid cytology is currently still pending. Objective - Vital Signs Vital signs: Vital Signs Temp 98.0 F 09/23/22 08:00 Pulse 65 09/23/22 08:00 Resp 16 09/23/22 08:00 BP 107/60 09/23/22 10:20 Pulse Ox 94 L 09/23/22 08:00 FiO2 Intake & Output 09/22/22 09/23/22 09/23/22 18:59 06:59 18:59 Intake Total 100 128 Output Total 300 Balance -200 128 Weight 60 kg Intake: IV 10 Invasive Line 1 10 Oral 100 118 Output: Urine 300 Other: Voiding Method External Catheter Toilet Toilet Urinal Urinal # Voids 3 - Exam No acute distress, oriented 3. No obvious respiratory distress. Currently on room air. HEENT examination is grossly unremarkable. Neck supple. Full range of motion. No adenopathy thyromegaly or neck vein dist ention. Cardiovascular examination reveals regular rhythm rate. S1-S2 normal. No S3 or S4. No discernible murmur noted. Heart sounds are distant. Heart rate 65 bpm. Lungs reveal mostly clear breath sounds. Minimal rhonchi. No wheezes or crackles. Breath sounds equal bilaterally. Room air saturation is noted to be 94%. Abdomen soft bowel sounds are heard. No masses or tenderness. Extremities are intact. No cyanosis clubbing or edema. Skin is without rash or lesion. Neurologic examination is brief but nonfocal. - Labs CBC & Chem 7: 09/21/22 05:42 09/21/22 05:42 Labs: Microbiology - Last 24 Hours (Table) 09/20/22 09:30 Gram Stain - Preliminary Pleural Fluid Body Fluid Culture - Preliminary Assessment and Plan Assessment: Acute on chronic systolic CHF, ejection fraction of 20%, and a patient with ischemic cardiomyopathy. Left-sided pleural effusion, status post thoracentesis. History of CAD with previous bypass grafting. Previous history of PCI/stent. History of AICD placement. Essential hypertension. Hyperlipidemia. Previous history of tobacco use. History of ventricular tachycardia. Probable COPD. DJD. Sleep apnea syndrome. History of nephrolithiasis. Plan: Plan dated 09/21/2022. The fluid removed yesterday, was a transudate. The LDH and protein are quite low. This is consistent with a pleural fluid accumulation secondary to CHF. The patient is doing better. The patient's on 3 L of oxygen. Labs, x-rays, and medications are reviewed. We will continue to follow and make recommendations along the way. Prognosis is guarded. Plan dated 09/22/2022. The patient had a thoracentesis performed on the left side, on Wednesday. 650 mL was removed. The fluid analysis revealed a transudate. The patient is likely to be discharged in the next 24-48 hours. No new labs today. He remains on 3 L of oxygen. We will continue to follow the patient along, and make recommendations along the way. Overall prognosis remains guarded. Fluid cytology is currently pending, but likely negative. Plan dated 09/23/2022. The patient is doing very well. He is currently on room air. Saturations are 94%. He's not receiving any IV fluids. From the pulmonary perspective, the patient could be discharged. Labs, x-rays, and medications are all reviewed. Moving forward, we will see this patient only as needed. Time with Patient: Less than 30
--- NOTE | 2022-09-23 11:26 | P.PN ---
Subjective Progress Note Date: 09/23/22 HISTORY OF PRESENT ILLNESS: This is a 77-year-old male with a past medical history significant for or near disease with previous CABG, ischemic cardiomyopathy, AICD implantation, lori tricular tachycardia, hypertension, hyperlipidemia, and former nicotine dependence. Patient follows in the office with Dr. Chisholm. We have been asked to see the patient in consultation for congestive heart failure. Patient examined at the bedside. Patient presented to the hospital with a chief complaint of shortness of breath. Patient states he has been feeling short of breath for the past 3-4 days. He reports a cough. He denies any sputum production. He denies any fever or chills. He also reports having mild chest discomfort along with the shortness of breath. Patient presented to the hospital and was found to be in acute congestive heart failure. He was started on IV Lasix. The patient states he has been taking his medications at home regularly. He states he tries his best to follow a low-sodium diet. * EKG reveals paced rhythm * Chest xray COPD with left lower lobe infiltrate and small effusion * Chest ultrasound: Left pleural effusion amenable to thoracentesis. No significant right pleural effusion. * Laboratory data: WBC 7.4. Hemoglobin 12.3. Platelet count 129. Sodium 135. Potassium 4.7. BUN 17. Creatinine 1.15. Lactic acid 2.3. Repeat 1.9. Troponin 0.120. ProBNP 49,900. * Current home cardiac medications include: Home medication list has not been verified at the time of this dictation * Most recent echocardiogram obtained in June 2022 * Cardiac catheterization history: August 2021 with Impala supported PCI of the left main and circumflex 09/21 Patient is seen today in follow-up. He is currently on oral Lasix 40 mg twice daily and resumed on his home cardiac medications. Patient states he feels much improved after thoracentesis left side was in yesterday with removal 650 ML's. Repeat blood work reveals BUN 19, creatinine 1.36, potassium 3.7, hemoglobin 11.1. He is currently on O2 at 3 L and he states he normally wears 2-3 L. 09/23 Patient was given a holiday from losartan and was scheduled to start Entresto yesterday at 12 noon. Patient has been tolerating both blood pressure 97/56 so Coreg will be decreased to 3.125 mg twice daily.. PHYSICAL EXAM: VITAL SIGNS: Reviewed. GENERAL: Well-developed in no acute distress. LUNGS: Decreased air entry bilaterally. HEART: Regular rate and rhythm. S1 and S2 heard. Short systolic murmur EXTREMITIES: Normal range of motion. No clubbing or cyanosis. Peripheral pulses intact. Trace lower extremity edema ASSESSMENT: Shortness of breath Acute on chronic congestive heart failure with reduced ejection fraction, EF 20% Ischemic cardiomyopathy with previous multivessel PCI Abnormal troponin, likely secondary to above, no evidence of acute coronary syndrome Left pleural effusion Coronary artery disease with previous CABG and subsequent stenting Ischemic cardiomyopathy History of AICD implantation History of ventricular tachycardia Hypertension Hyperlipidemia Former nicotine dependence PLAN: No need to repeat echocardiogram as this was performed in June 2022 Pulmonary consulted status post left-sided thoracentesis Continue PO Lasix Continue current cardiac medications Patient is cleared from cardiology for discharge home and may follow-up in the office with Dr. Chisholm in one to 2 weeks Nurse practitioner note has been reviewed by physician. Signing provider agrees with the documented findings, assessment, and plan of care. Objective - Vital Signs Vital signs: Vital Signs Temp 98.0 F 09/23/22 08:00 Pulse 65 09/23/22 08:00 Resp 16 09/23/22 08:00 BP 107/60 09/23/22 10:20 Pulse Ox 94 L 09/23/22 08:00 FiO2 Intake & Output 09/22/22 09/23/22 09/23/22 18:59 06:59 18:59 Intake Total 100 128 Output Total 300 Balance -200 128 Weight 60 kg Intake: IV 10 Invasive Line 1 10 Oral 100 118 Output: Urine 300 Other: Voiding Method External Catheter Toilet Toilet Urinal Urinal # Voids 3 - Labs CBC & Chem 7: 09/21/22 05:42 09/21/22 05:42 Labs: Microbiology - Last 24 Hours (Table) 09/20/22 09:30 Gram Stain - Preliminary Pleural Fluid Body Fluid Culture - Preliminary
--- NOTE | 2022-09-23 13:44 | P.PN ---
Subjective Progress Note Date: 09/23/22 Principal diagnosis: Shortness of breath, CHF exacerbation Interval history : 77-year-old gentleman with past medical history significant for coronary artery disease, history of ischemic cardiomyopathy history of ASCVD, cardiac arrhythmia hypertension hyperlipidemia previous history of smoking presented to the emergency department because of shortness of breath. At the time of presentation in ER patient also complained of mild chest discomfort which prompted a cardiology evaluation. Patient had a chest x-ray done which showed pulmonary vascular congestion hence patient was started on IV Lasix. Workup initiated in ER included an EKG, white blood cell count was within normal limits troponin was elevated at 0.120. Patient had a chest ultrasound done in ER which showed left pleural effusion, no right pleural effusion was noted, chest accidental finding consistent with COPD. Patient had thoracentesis during the hospital stay. Patient was noted to be bradycardic hence cardiac medications were adjusted SUBJECTIVE : Patient seen and bedside patient's her breathing is improved after thoracentesis. 650 mL of fluid was removed from left lung on 09/20, started entresto 09/22 Noted to have bradycardia , on 09/23 plan was to discharge patient however he was noted to have significant low heart rate in 40s, blood pressures systolic and 90s hence discharged canceled nursing staff requested to call notify cardiology dose of Coreg has already been decreased REVIEW OF SYSTEMS: NEGATIVE EXCEPT FOR shortness of breath and weakness CONSTITUTIONAL: No fever, no malaise, no fatigue. HEENT: No recent visual problems or hearing problems. Denied any sore throat. CARDIOVASCULAR: No chest pain, orthopnea, PND, no palpitations, no syncope. PULMONARY: Shortness of breath, cough GASTROINTESTINAL: No diarrhea, no nausea, no vomiting, no abdominal pain. NEUROLOGICAL: No headaches, no weakness, no numbness. HEMATOLOGICAL: Denies any bleeding or petechiae. GENITOURINARY: Denies any burning micturition, frequency, or urgency. MUSCULOSKELETAL/RHEUMATOLOGICAL: Denies any joint pain, swelling, or any muscle pain. ENDOCRINE: Denies any polyuria or polydipsia. The rest of the 14-point review of systems is negative. PHYSICAL EXAMINATION: GENERAL: The patient is alert and oriented x3, not in any acute distress. Well developed, well nourished. HEENT: Pupils are round and equally reacting to light. EOMI. No scleral icterus. No conjunctival pallor. Normocephalic, atraumatic. No pharyngeal erythema. No thyromegaly. CARDIOVASCULAR: S1 and S2 present. No murmurs, rubs, or gallops. Bradycardia noted PULMONARY: Decreased breath sounds bilaterally, crackles audible ABDOMEN: Soft, nontender, nondistended, normoactive bowel sounds. No palpable organomegaly. MUSCULOSKELETAL: No joint swelling or deformity. EXTREMITIES: No cyanosis, clubbing, or pedal edema. NEUROLOGICAL: Gross neurological examination did not reveal any focal deficits. SKIN: No rashes. ASSESMENT & PLAN * Acute on chronic congestive heart failure systolic dysfunction with ejection fraction of 20% * Acute hypoxic respiratory failure secondary to CHF exacerbation * Elevated troponin>> type II [place] * History of ventricular tachycardia * Left-sided pleural effusion transudate * Cornoary artery disease history of CABG, ischemic cardiomyopathy, status post AICD * Hypertension * Dyslipidemia PLAN * pulmonary medicine and cardiology consulted * Status postthoracentesis left lung 650 and will of fluid removed. Continue patient on Lasix monitor intake and output. Transudate pleural effusion likely secondary to CHF>> cytology pending * Continue patient on aspirin, Lipitor, Plavix * Continue Lasix monitor intake and output * Continue patient on sotalol and Coreg (DOSE DECREASED 09/23) for history of nonsustained V. tach>> continue to monitor for bradycardia * Patient started on ENTRESTO * Optimize electrolyte * Plan to discharge by 09/24/22 once bradycardia improved Objective - Vital Signs Vital signs: Vital Signs Temp 97.6 F 09/23/22 13:03 Pulse 49 L 09/23/22 13:03 Resp 16 09/23/22 13:03 BP 108/61 09/23/22 13:03 Pulse Ox 100 09/23/22 13:03 FiO2 Intake & Output 09/22/22 09/23/22 09/23/22 18:59 06:59 18:59 Intake Total 100 256 Output Total 300 200 Balance -200 56 Weight 60 kg Intake: IV 20 Invasive Line 1 20 Oral 100 236 Output: Urine 300 200 Other: Voiding Method External Catheter Toilet Toilet Urinal Urinal # Voids 3 - Labs CBC & Chem 7: 09/21/22 05:42 09/21/22 05:42 Labs: Microbiology - Last 24 Hours (Table) 09/20/22 09:30 Gram Stain - Preliminary Pleural Fluid Body Fluid Culture - Preliminary
[2022-09-23 15:22] LABS: HCT 41.7 % (39.0-53.0); HGB 13.2 gm/dL (13.0-17.5); MCH 29.6 pg (25.0-35.0); MCHC 31.5 g/dL (31.0-37.0); MCV 93.9 fL (80.0-100.0); Mean Platelet Volume 9.2; Platelet Count 294 k/uL (150-450); RBC 4.44 m/uL (4.30-5.90); RDW 13.7 % (11.5-15.5); WBC 8.1 k/uL (3.8-10.6)
[2022-09-23 15:37] LABS: Magnesium 2.2 mg/dL (1.6-2.3); Potassium 5.1 mmol/L (3.5-5.1)
[2022-09-23] MEDS: ATORVASTATIN 80 MG TAB PO SCH (21:11)
[2022-09-24 07:18] VITALS: PULSE 50
[2022-09-24] MEDS: SOTALOL 80 MG TAB PO SCH ×2 (07:59→09:24)
[2022-09-24] MEDS: DULoxetine HCL 60 MG CAPSULE.DR PO SCH (08:05)
[2022-09-24] MEDS: CLOPIDOGREL 75 MG TAB PO SCH (08:05)
[2022-09-24] MEDS: ASPIRIN 81 MG PO SCH (08:05)
[2022-09-24] MEDS: SACUBITRIL/VALSARTAN 24 MG-26 MG TABLET PO SCH (08:06)
[2022-09-24] MEDS: LIDOCAINE 5% PATCH TOPICAL SCH (08:06)
[2022-09-24] MEDS: FUROSEMIDE 40 MG TAB PO SCH (08:06)
[2022-09-24] MEDS: POTASSIUM CITRATE 10 MEQ TABLET.ER PO SCH (08:06)
[2022-09-24] MEDS: oxyCODONE-APAP 10-325MG 1 EACH TAB PO PRN (08:10)
[2022-09-24 09:16] LABS: HCT 40.5 % (39.0-53.0); HGB 13.2 gm/dL (13.0-17.5); MCH 29.9 pg (25.0-35.0); MCHC 32.6 g/dL (31.0-37.0); MCV 91.8 fL (80.0-100.0); Mean Platelet Volume 9.2; Platelet Count 277 k/uL (150-450); RBC 4.41 m/uL (4.30-5.90); WBC 7.2 k/uL (3.8-10.6)
[2022-09-24] MEDS: carvediloL 3.125 MG TAB PO SCH (09:24)
[2022-09-24 09:31] LABS: Magnesium 2.1 mg/dL (1.6-2.3); Potassium 4.9 mmol/L (3.5-5.1)
[2022-09-24 11:57] VITALS: BP 105/61; TEMP 97.4
--- NOTE | 2022-09-24 13:04 | P.DS ---
Providers Date of admission: 09/20/22 03:15 Expected date of discharge: 09/24/22 Attending physician: Felicia Nice Consults: 09/20/22 03:14 Consult Physician Routine Consulting Provider: Bryan Garcia Consult Reason/Comments: heart failure Do you want consulting provider notified?: Yes 09/20/22 03:15 Consult Physician Routine Consulting Provider: Sameer Tabor Consult Reason/Comments: pneumonia Do you want consulting provider notified?: Yes Primary care physician: Cong [facility] Course: Discharge diagnoses; * Acute on chronic congestive heart failure systolic dysfunction with ejection fraction of 20% * Acute hypoxic respiratory failure secondary to CHF exacerbation * Elevated troponin>> type II [place] * History of ventricular tachycardia * Left-sided pleural effusion transudate * Cornoary artery disease history of CABG, ischemic cardiomyopathy, status post AICD * Hypertension * Dyslipidemia Hospital course; 77-year-old gentleman with past medical history significant for coronary artery disease, history of ischemic cardiomyopathy history of ASCVD, cardiac arrhythmia hypertension hyperlipidemia previous history of smoking presented to the emergency department because of shortness of breath. At the time of presentation in ER patient also complained of mild chest discomfort which prompted a cardiology evaluation. Patient had a chest x-ray done which showed pulmonary vascular congestion hence patient was started on IV Lasix. Workup initiated in ER included an EKG, white blood cell count was within normal limits troponin was elevated at 0.120. Patient had a chest ultrasound done in ER which showed left pleural effusion, no right pleural effusion was noted, chest accidental finding consistent with COPD. Patient had thoracentesis during the hospital stay. Patient was noted to be bradycardic hence cardiac medications were adjusted 09/24. Patient seen and examined cardiology recommended discharging patient on reduced dose of Coreg and sotalol. Patient to follow up outpatient cardiology PHYSICAL EXAMINATION: GENERAL: The patient is alert and oriented x3, not in any acute distress. Well developed, well nourished. HEENT: Pupils are round and equally reacting to light. EOMI. No scleral icterus. No conjunctival pallor. Normocephalic, atraumatic. No pharyngeal erythema. No thyromegaly. CARDIOVASCULAR: S1 and S2 present. No murmurs, rubs, or gallops. PULMONARY: Chest is clear to auscultation, no wheezing or crackles. ABDOMEN: Soft, nontender, nondistended, normoactive bowel sounds. No palpable organomegaly. MUSCULOSKELETAL: No joint swelling or deformity. EXTREMITIES: No cyanosis, clubbing, or pedal edema. NEUROLOGICAL: Gross neurological examination did not reveal any focal deficits. SKIN: No rashes. Patient Condition at Discharge: Stable Plan - Discharge Summary Discharge Rx Participant: No New Discharge Prescriptions: New carvediloL [Coreg] 3.125 mg PO BID-W/MEALS #60 tab Sacubitril/Valsartan [Entresto 24 mg-26 mg Tablet] 1 each PO BID #30 tab Furosemide [Lasix] 40 mg PO Q12HR #60 tab Continue Aspirin 81 mg PO DAILY chew Nitroglycerin Sl Tabs [Nitrostat] 0.4 mg SUBLINGUAL Q5M PRN #25 tab PRN Reason: Chest Pain Clopidogrel [Plavix] 75 mg PO DAILY #30 tab Vit C/E/Zn/Coppr/Lutein/Zeaxan [Preservision Areds 2 Softgel] 1 cap PO BID Potassium Citrate [Urocit-K] 10 meq PO BID Multivitamins, Thera [Multivitamin (formulary)] 1 tab PO DAILY Lidocaine 5% Patch [Lidoderm 5% Patch] 1 patch TOPICAL DAILY Cholecalciferol [Vitamin D3 (25 Mcg = 1000 Iu)] 50 mcg PO DAILY 30 Days #30 tab Atorvastatin [Lipitor] 80 mg PO HS DULoxetine HCL [Cymbalta] 60 mg PO DAILY Sotalol [Betapace] 80 mg PO BID oxyCODONE-APAP 10-325MG [Percocet 10-325 mg] 1 tab PO Q4HR PRN PRN Reason: Pain ALPRAZolam [Xanax] 0.5 mg PO BID PRN PRN Reason: Anxiety Ascorbic Acid [Vitamin C] 500 mg PO DAILY Discontinued Furosemide [Lasix] 40 mg PO DAILY #30 tab lisinopriL [Zestril] 5 mg PO HS #90 tab carvediloL [Coreg*] 12.5 mg PO BID-W/MEALS #180 tab Discharge Medication List Aspirin 81 mg PO DAILY chew 10/26/19 [Rx] Clopidogrel [Plavix] 75 mg PO DAILY #30 tab 10/26/19 [Rx] Nitroglycerin Sl Tabs [Nitrostat] 0.4 mg SUBLINGUAL Q5M PRN #25 tab 10/26/19 [Rx] Vit C/E/Zn/Coppr/Lutein/Zeaxan [Preservision Areds 2 Softgel] 1 cap PO BID 12/08/19 [History] Atorvastatin [Lipitor] 80 mg PO HS 08/10/21 [History] DULoxetine HCL [Cymbalta] 60 mg PO DAILY 08/10/21 [History] Potassium Citrate [Urocit-K] 10 meq PO BID 08/10/21 [History] Lidocaine 5% Patch [Lidoderm 5% Patch] 1 patch TOPICAL DAILY 06/13/22 [History] Multivitamins, Thera [Multivitamin (formulary)] 1 tab PO DAILY 06/13/22 [History] Sotalol [Betapace] 80 mg PO BID 06/13/22 [History] oxyCODONE-APAP 10-325MG [Percocet 10-325 mg] 1 tab PO Q4HR PRN 06/13/22 [History] Cholecalciferol [Vitamin D3 (25 Mcg = 1000 Iu)] 50 mcg PO DAILY 30 Days #30 tab 06/19/22 [Rx] ALPRAZolam [Xanax] 0.5 mg PO BID PRN 09/20/22 [History] Ascorbic Acid [Vitamin C] 500 mg PO DAILY 09/20/22 [History] Furosemide [Lasix] 40 mg PO Q12HR #60 tab 09/24/22 [Rx] Sacubitril/Valsartan [Entresto 24 mg-26 mg Tablet] 1 each PO BID #30 tab 09/24/22 [Rx] carvediloL [Coreg] 3.125 mg PO BID-W/MEALS #60 tab 09/24/22 [Rx] Follow up Appointment(s)/Referral(s): Sameer Tabor MD [STAFF PHYSICIAN] - 10/13/22 1:30 pm Sanchez Chisholm MD [STAFF PHYSICIAN] - 1 Week ([facility] office will contact you with appointment date and time.) Cong Hassan DO [Primary Care Provider] - 09/29/22 10:30 am Patient Instructions/Handouts: Heart Failure (DC) Discharge Disposition: HOME SELF-CARE
--- NOTE | 2022-09-24 14:46 | P.PN ---
Subjective Progress Note Date: 09/24/22 HISTORY OF PRESENT ILLNESS: This is a 77-year-old male with a past medical history significant for or near disease with previous CABG, ischemic cardiomyopathy, AICD implantation, lori tricular tachycardia, hypertension, hyperlipidemia, and former nicotine dependence. Patient follows in the office with Dr. Chisholm. We have been asked to see the patient in consultation for congestive heart failure. Patient examined at the bedside. Patient presented to the hospital with a chief complaint of shortness of breath. Patient states he has been feeling short of breath for the past 3-4 days. He reports a cough. He denies any sputum production. He denies any fever or chills. He also reports having mild chest discomfort along with the shortness of breath. Patient presented to the hospital and was found to be in acute congestive heart failure. He was started on IV Lasix. The patient states he has been taking his medications at home regularly. He states he tries his best to follow a low-sodium diet. * EKG reveals paced rhythm * Chest xray COPD with left lower lobe infiltrate and small effusion * Chest ultrasound: Left pleural effusion amenable to thoracentesis. No significant right pleural effusion. * Laboratory data: WBC 7.4. Hemoglobin 12.3. Platelet count 129. Sodium 135. Potassium 4.7. BUN 17. Creatinine 1.15. Lactic acid 2.3. Repeat 1.9. Troponin 0.120. ProBNP 49,900. * Current home cardiac medications include: Home medication list has not been verified at the time of this dictation * Most recent echocardiogram obtained in June 2022 * Cardiac catheterization history: August 2021 with Impala supported PCI of the left main and circumflex 09/21 Patient is seen today in follow-up. He is currently on oral Lasix 40 mg twice daily and resumed on his home cardiac medications. Patient states he feels much improved after thoracentesis left side was in yesterday with removal 650 ML's. Repeat blood work reveals BUN 19, creatinine 1.36, potassium 3.7, hemoglobin 11.1. He is currently on O2 at 3 L and he states he normally wears 2-3 L. 09/23 Patient was given a holiday from losartan and was scheduled to start Entresto yesterday at 12 noon. Patient has been tolerating both blood pressure 97/56 so Coreg will be decreased to 3.125 mg twice daily.. 09/24 Patient was cleared for discharge yesterday by cardiology but discharge was held by attending due to soft blood pressure readings and bradycardia. Today heart rate is in the 50s, blood pressure 105/61. Patient denies having any lightheadedness or dizziness, no chest pain or shortness of breath. He is very anxious to be discharged home. PHYSICAL EXAM: VITAL SIGNS: Reviewed. GENERAL: Well-developed in no acute distress. LUNGS: Decreased air entry bilaterally. HEART: Regular rate and rhythm. S1 and S2 heard. Short systolic murmur EXTREMITIES: Normal range of motion. No clubbing or cyanosis. Peripheral pulses intact. Trace lower extremity edema ASSESSMENT: Shortness of breath Acute on chronic congestive heart failure with reduced ejection fraction, EF 20% Ischemic cardiomyopathy with previous multivessel PCI Abnormal troponin, likely secondary to above, no evidence of acute coronary syndrome Left pleural effusion Coronary artery disease with previous CABG and subsequent stenting Ischemic cardiomyopathy History of AICD implantation History of ventricular tachycardia Hypertension Hyperlipidemia Former nicotine dependence PLAN: No need to repeat echocardiogram as this was performed in June 2022 Pulmonary consulted status post left-sided thoracentesis Continue PO Lasix Continue current cardiac medications Patient is cleared from cardiology for discharge home and may follow-up in the office with Dr. Chisholm in one to 2 weeks Nurse practitioner note has been reviewed by physician. Signing provider agrees with the documented findings, assessment, and plan of care. Objective - Vital Signs Vital signs: Vital Signs Temp 97.7 F 09/24/22 07:05 Pulse 50 L 09/24/22 07:05 Resp 16 09/24/22 07:05 BP 102/59 09/24/22 07:05 Pulse Ox 95 09/24/22 07:05 FiO2 Intake & Output 09/23/22 09/24/22 09/24/22 18:59 06:59 18:59 Intake Total 374 220 660 Output Total 200 650 Balance 174 -430 660 Weight 59.8 kg Intake: IV 20 Invasive Line 1 20 Oral 354 220 660 Output: Urine 200 650 Other: Voiding Method Toilet Toilet Urinal Urinal - Labs CBC & Chem 7: 09/24/22 08:56 09/24/22 08:56 Labs: Abnormal Lab Results - Last 24 Hours (Table) 09/23/22 Range/Units 14:32 Sodium 134 L (137-145) mmol/L Chloride 95 L (98-107) mmol/L Carbon Dioxide 34 H (22-30) mmol/L BUN 32 H (9-20) mg/dL Creatinine 1.61 H (0.66-1.25) mg/dL Microbiology - Last 24 Hours (Table) 09/20/22 09:30 Gram Stain - Preliminary Pleural Fluid Body Fluid Culture - Preliminary 09/20/22 09:30 Acid Fast Bacilli Smear - Final Pleural Fluid Acid Fast Bacilli Culture - Preliminary
--- NOTE | 2022-09-25 13:55 | CDI ---
Pt Name: Trino Brandt CONFIDENTIAL MR#: [id number] Adm Date: 09/20/2022 3:15:00 AM Printed:09/25/2022 Physician Documentation Request Page 2 of 2 Physicians Documentation Request This Form is Not a Permanent Document in the Medical Record Pt Name: Trino Brandt MR #: [id number] Payor: MEDICARE Unit/Bed: [address] [place] [address] Adm Date: 09/20/2022 3:15:00 AM Reviewer: Yasemin Fields Ext. Query Date: 09/25/2022 1:40:59 PM By submitting this query, we are merely seeking further clarification of documentation to accurately reflect all conditions that you are monitoring, evaluating, treating or that extend the hospitalization or utilize additional resources of care. Please utilize your independent clinical judgment when addressing the question(s) below. Dear Doctor Kurt Estrella, The patients Clinical Indicators include: In the Emergency Department Note, a sepsis focused exam is performed. Under the Medical Decision Making portion of the ED Note "Given patient's history of 20% ejection fraction patient given the usual 30 mL per KG bolus to treat sepsis." A bolus of Zithromax and a push of Rocephin were given on 09/20. Per pulmonary consult dated 09/20 the recommendation is to continue diuretics and discontinue antibiotics. Vital signs in ED: Temp 100.4, Pulse 86, RR 20, BP 156/81 Discharge Summary diagnosis: Acute on chronic systolic CHF Acute hypoxic respiratory failure secondary to CHF exacerbation Further clarification is needed regarding the notation of sepsis in the ED. Please document if the sepsis is: Sepsis is ruled in Sepsis is ruled out Other condition (please specify) Clinically unable to determine Unknown PLEASE DOCUMENT ANY ADDITIONAL DIAGNOSES AND/OR SPECIFICITY IN THE PROGRESS NOTES AND/OR DISCHARGE SUMMARY. Agreed & documented Clinically unable to determine/unknown Disagree with the above request Need to discuss my responseSepsis is ruled out MTDD
== END 2022-09-24 13:37 | disposition home or self-care (01) | DRG 280 ==
LOC: EC 01:41 → 3SCARD 03:15
PROVIDERS: ADMIT Hospitalist; ATTEND Hospitalist
PROC: 0W9B3ZX Drainage of Left Pleural Cavity, Percutaneous Approach, Diagnostic (ICD-10-PCS; principal; 2022-09-20)
DX: I11.0 Hypertensive heart disease with heart failure (principal); I50.23 Acute on chronic systolic (congestive) heart failure; I21.A1 Myocardial infarction type 2; J96.01 Acute respiratory failure with hypoxia; J91.8 Pleural effusion in other conditions classified elsewhere; I25.10 Atherosclerotic heart disease of native coronary artery without angina pectoris; Z95.1 Presence of aortocoronary bypass graft; M19.90 Unspecified osteoarthritis, unspecified site; E78.5 Hyperlipidemia, unspecified; Z95.810 Presence of automatic (implantable) cardiac defibrillator; D64.9 Anemia, unspecified; M79.7 Fibromyalgia; J44.9 Chronic obstructive pulmonary disease, unspecified; G47.30 Sleep apnea, unspecified; I25.2 Old myocardial infarction; I25.5 Ischemic cardiomyopathy; Z95.5 Presence of coronary angioplasty implant and graft; Z79.02 Long term (current) use of antithrombotics/antiplatelets; Z79.82 Long term (current) use of aspirin; Z79.899 Other long term (current) drug therapy; Z82.49 Family history of ischemic heart disease and other diseases of the circulatory system; Z86.79 Personal history of other diseases of the circulatory system; Z87.891 Personal history of nicotine dependence; Z91.041 Radiographic dye allergy status
CPT/HCPCS: 36415; 71045; 71046; 76604; 80048; 80053; 82945; 83605; 83615; 83735; 83880; 84157; 84484; 85025; 85027; 85610; 85730; 87070; 87102; 87116; 87205; 87206; 87252; 87496; 87498; 87502; 87529; 87634; 87798; 89050; 93005; 93306; 94760; 96365; 96375; 99285

== ENCOUNTER 2022-11-12 22:35 | Inpatient (IN) | payer MEDICARE ==
[2022-11-12 22:42] LABS: Glucose,Whole Blood 100 mg/dL (70-110)
--- NOTE | 2022-11-12 22:47 | ED ---
General Adult HPI - General Chief complaint: Dizziness Stated complaint: Weakness,SOB Time Seen by Provider: 11/12/22 22:45 Source: patient Mode of arrival: EMS - Related Data Home Medications Medication Instructions Recorded Confirmed Vit C/E/Zn/Coppr/Lutein/Zeaxan 1 cap PO BID 12/08/19 09/20/22 [Preservision Areds 2 Softgel] Atorvastatin [Lipitor] 80 mg PO HS 08/10/21 09/20/22 DULoxetine HCL [Cymbalta] 60 mg PO DAILY 08/10/21 09/20/22 Potassium Citrate [Urocit-K] 10 meq PO BID 08/10/21 09/20/22 Lidocaine 5% Patch [Lidoderm 5% 1 patch TOPICAL DAILY 06/13/22 09/20/22 Patch] Multivitamins, Thera [Multivitamin 1 tab PO DAILY 06/13/22 09/20/22 (formulary)] Sotalol [Betapace] 80 mg PO BID 06/13/22 09/20/22 oxyCODONE-APAP 10-325MG [Percocet 1 tab PO Q4HR PRN 06/13/22 09/20/22 10-325 mg] ALPRAZolam [Xanax] 0.5 mg PO BID PRN 09/20/22 09/20/22 Ascorbic Acid [Vitamin C] 500 mg PO DAILY 09/20/22 09/20/22 Previous Rx's Medication Instructions Recorded Aspirin 81 mg PO DAILY chew 10/26/19 Clopidogrel [Plavix] 75 mg PO DAILY #30 tab 10/26/19 Nitroglycerin Sl Tabs [Nitrostat] 0.4 mg SUBLINGUAL Q5M PRN #25 tab 10/26/19 Cholecalciferol [Vitamin D3 (25 50 mcg PO DAILY 30 Days #30 tab 06/19/22 Mcg = 1000 Iu)] Furosemide [Lasix] 40 mg PO Q12HR #60 tab 09/24/22 Sacubitril/Valsartan [Entresto 24 1 each PO BID #30 tab 09/24/22 mg-26 mg Tablet] carvediloL [Coreg] 3.125 mg PO BID-W/MEALS #60 tab 09/24/22 Allergies Allergy/AdvReac Type Severity Reaction Status Date / Time Iodinated Contrast Media AdvReac Rash/Hives Verified 11/12/22 22:46 Review of Systems ROS Statement: Those systems with pertinent positive or pertinent negative responses have been documented in the HPI. ROS Other: All systems not noted in ROS Statement are negative. Past Medical History Past Medical History: Coronary Artery Disease (CAD), Chest Pain / Angina, COPD, Hyperlipidemia, Hypertension, Myocardial Infarction ([place]), Musculoskeletal Disorder, Osteoarthritis (OA), Prostate Disorder, Sleep Apnea/CPAP/BIPAP Additional Past Medical History / Comment(s): HH, fibromyalgia, anemia, hypogonadism, vtach, NSTEMI 10/20/19, CPAP use, Inogen portable. Kidney stones; left flank pain, chronic toni shoulder pain, states has numbness rt arm, recent adm. for chest pain, difficulty swallowing & weight loss Last Myocardial Infarction Date:: 10/20/19 History of Any Multi-Drug Resistant Organisms: None Reported Past Surgical History: Adenoidectomy, AICD, Back Surgery, Cholecystectomy, Coronary Bypass/CABG, Heart Catheterization, Hernia Repair, Orthopedic Surgery, Tonsillectomy Additional Past Surgical History / Comment(s): CABG x3 in 1999, rhinoplasty, ACD F 2, left bunionectomy, Lasik, lipoma from left shoulder 2, colonoscopy 5 years ago, hernia repair. pacer Past Anesthesia/Blood Transfusion Reactions: No Reported Reaction Type of Cardiac Device: AICD Device Placement Date:: 12/12/19 Past Psychological History: No Psychological Hx Reported Smoking Status: Former smoker Past Alcohol Use History: None Reported Past Drug Use History: None Reported - Past Family History Mother Family Medical History: Cancer, Coronary Artery Disease (CAD) Father Family Medical History: Cancer Brother(s) Family Medical History: Congestive Heart Failure (CHF), Coronary Artery Disease (CAD) Sister(s) Family Medical History: Congestive Heart Failure (CHF) Course Vital Signs 11/12/22 11/12/22 11/13/22 22:35 23:50 00:10 Temperature 97.5 F L Pulse Rate 99 104 H 105 H Respiratory 16 16 29 H Rate Blood Pressure 181/98 167/90 159/92 O2 Sat by Pulse 97 100 Oximetry 11/13/22 11/13/22 11/13/22 00:30 00:40 01:00 Temperature Pulse Rate 104 H 104 H 103 H Respiratory 26 H 26 H 26 H Rate Blood Pressure 167/92 162/89 170/89 O2 Sat by Pulse 95 98 98 Oximetry 11/13/22 11/13/22 11/13/22 01:10 01:30 01:40 Temperature Pulse Rate 102 H 98 Respiratory 24 22 Rate Blood Pressure 119/84 162/82 138/75 O2 Sat by Pulse 97 95 Oximetry 11/13/22 11/13/22 02:00 02:10 Temperature Pulse Rate 100 101 H Respiratory 20 20 Rate Blood Pressure 126/73 154/82 O2 Sat by Pulse 95 96 Oximetry EKG Findings - EKG Comments: EKG Findings:: There is a paced rhythm rate 100 bpm - EKG Results: EKG: interpreted by SHERIE Medical Decision Making - Lab Data Result diagrams: 11/12/22 23:20 11/12/22 23:20 Lab Results 11/12/22 11/12/22 11/12/22 Range/Units 22:40 23:20 23:20 WBC 9.5 (3.8-10.6) k/uL RBC 4.86 (4.30-5.90) m/uL Hgb 14.2 (13.0-17.5) gm/dL Hct 45.1 (39.0-53.0) % MCV 92.9 (80.0-100.0) fL MCH 29.3 (25.0-35.0) pg MCHC 31.5 (31.0-37.0) g/dL RDW 15.2 (11.5-15.5) % Plt Count 246 (150-450) k/uL MPV 9.7 Neutrophils % 74 % Lymphocytes % 17 % Monocytes % 6 % Eosinophils % 1 % Basophils % 0 % Neutrophils # 7.0 (1.3-7.7) k/uL Lymphocytes # 1.6 (1.0-4.8) k/uL Monocytes # 0.6 (0-1.0) k/uL Eosinophils # 0.1 (0-0.7) k/uL Basophils # 0.0 (0-0.2) k/uL Hypochromasia Slight Sodium 138 (137-145) mmol/L Potassium 4.1 (3.5-5.1) mmol/L Chloride 105 (98-107) mmol/L Carbon Dioxide 21 L (22-30) mmol/L Anion Gap 12 mmol/L BUN 14 (9-20) mg/dL Creatinine 1.19 (0.66-1.25) mg/dL Est GFR (CKD-EPI)AfAm 67 (>60 ml/min/1.73 sqM) Est GFR (CKD-EPI)NonAf 58 (>60 ml/min/1.73 sqM) Glucose 116 H (74-99) mg/dL POC Glucose (mg/dL) 100 (70-110) mg/dL POC Glu Fusion Operator ID Leland, Lopez Lactic Ac Sepsis Rflx Plasma Lactic Acid Kyle (0.7-2.0) mmol/L Calcium 9.5 (8.4-10.2) mg/dL Magnesium 2.1 (1.6-2.3) mg/dL Total Bilirubin 1.0 (0.2-1.3) mg/dL AST 31 (17-59) U/L ALT 16 (4-49) U/L Alkaline Phosphatase 111 (38-126) U/L Troponin I (0.000-0.034) ng/mL Total Protein 7.5 (6.3-8.2) g/dL Albumin 4.2 (3.5-5.0) g/dL 11/12/22 11/12/22 11/12/22 Range/Units 23:20 23:20 23:39 WBC (3.8-10.6) k/uL RBC (4.30-5.90) m/uL Hgb (13.0-17.5) gm/dL Hct (39.0-53.0) % MCV (80.0-100.0) fL MCH (25.0-35.0) pg MCHC (31.0-37.0) g/dL RDW (11.5-15.5) % Plt Count (150-450) k/uL MPV Neutrophils % % Lymphocytes % % Monocytes % % Eosinophils % % Basophils % % Neutrophils # (1.3-7.7) k/uL Lymphocytes # (1.0-4.8) k/uL Monocytes # (0-1.0) k/uL Eosinophils # (0-0.7) k/uL Basophils # (0-0.2) k/uL Hypochromasia Sodium (137-145) mmol/L Potassium (3.5-5.1) mmol/L Chloride (98-107) mmol/L Carbon Dioxide (22-30) mmol/L Anion Gap mmol/L BUN (9-20) mg/dL Creatinine (0.66-1.25) mg/dL Est GFR (CKD-EPI)AfAm (>60 ml/min/1.73 sqM) Est GFR (CKD-EPI)NonAf (>60 ml/min/1.73 sqM) Glucose (74-99) mg/dL POC Glucose (mg/dL) (70-110) mg/dL POC Glu Fusion Operator ID Lactic Ac Sepsis Rflx Y Plasma Lactic Acid Kyle 2.5 H* (0.7-2.0) mmol/L Calcium (8.4-10.2) mg/dL Magnesium (1.6-2.3) mg/dL Total Bilirubin (0.2-1.3) mg/dL AST (17-59) U/L ALT (4-49) U/L Alkaline Phosphatase (38-126) U/L Troponin I 0.131 H* (0.000-0.034) ng/mL Total Protein (6.3-8.2) g/dL Albumin (3.5-5.0) g/dL 11/13/22 Range/Units 01:57 WBC (3.8-10.6) k/uL RBC (4.30-5.90) m/uL Hgb (13.0-17.5) gm/dL Hct (39.0-53.0) % MCV (80.0-100.0) fL MCH (25.0-35.0) pg MCHC (31.0-37.0) g/dL RDW (11.5-15.5) % Plt Count (150-450) k/uL MPV Neutrophils % % Lymphocytes % % Monocytes % % Eosinophils % % Basophils % % Neutrophils # (1.3-7.7) k/uL Lymphocytes # (1.0-4.8) k/uL Monocytes # (0-1.0) k/uL Eosinophils # (0-0.7) k/uL Basophils # (0-0.2) k/uL Hypochromasia Sodium (137-145) mmol/L Potassium (3.5-5.1) mmol/L Chloride (98-107) mmol/L Carbon Dioxide (22-30) mmol/L Anion Gap mmol/L BUN (9-20) mg/dL Creatinine (0.66-1.25) mg/dL Est GFR (CKD-EPI)AfAm (>60 ml/min/1.73 sqM) Est GFR (CKD-EPI)NonAf (>60 ml/min/1.73 sqM) Glucose (74-99) mg/dL POC Glucose (mg/dL) (70-110) mg/dL POC Glu Fusion Operator ID Lactic Ac Sepsis Rflx Plasma Lactic Acid Ykle 1.5 (0.7-2.0) mmol/L Calcium (8.4-10.2) mg/dL Magnesium (1.6-2.3) mg/dL Total Bilirubin (0.2-1.3) mg/dL AST (17-59) U/L ALT (4-49) U/L Alkaline Phosphatase (38-126) U/L Troponin I (0.000-0.034) ng/mL Total Protein (6.3-8.2) g/dL Albumin (3.5-5.0) g/dL Disposition Clinical Impression: Elevated troponin, Back pain, thoracic Disposition: ADMITTED IP TO THIS HOSP Condition: Fair Referrals: Cong Hassan DO [Primary Care Provider] - 1-2 days
[2022-11-12] MEDS ORDERED: SODIUM CHLORIDE 0.9% 500 ML 500 ML IV STA (22:57)
[2022-11-12] MEDS ORDERED: MORPHINE SULFATE 4 MG/ML SYRINGE IV STA (22:57)
[2022-11-12] MEDS ORDERED: ONDANSETRON 4 MG/2 ML VIAL IVP STA (23:25)
[2022-11-12 23:28] LABS: Basophils % (A) 0 %; Eosinophils # (A) 0.1 k/uL (0-0.7); Eosinophils % (A) 1 %; HCT 45.1 % (39.0-53.0); HGB 14.2 gm/dL (13.0-17.5); Hypochromasia Slight; Lymphocytes # (A) 1.6 k/uL (1.0-4.8); Lymphocytes % (A) 17 %; MCH 29.3 pg (25.0-35.0); MCHC 31.5 g/dL (31.0-37.0); MCV 92.9 fL (80.0-100.0); Mean Platelet Volume 9.7; Monocytes # (A) 0.6 k/uL (0-1.0); Monocytes % (A) 6 %; Neutrophils % (A) 74 %; Platelet Count 246 k/uL (150-450); RBC 4.86 m/uL (4.30-5.90); RDW 15.2 % (11.5-15.5); WBC 9.5 k/uL (3.8-10.6)
[2022-11-12 23:38] LABS: Albumin 4.2 g/dL (3.5-5.0); Calcium 9.5 mg/dL (8.4-10.2); Total Protein 7.5 g/dL (6.3-8.2)
[2022-11-12 23:40] LABS: Magnesium 2.1 mg/dL (1.6-2.3); Potassium 4.1 mmol/L (3.5-5.1)
[2022-11-13] MEDS ORDERED: MORPHINE SULFATE 4 MG/ML SYRINGE IV STA (01:02)
[2022-11-13] MEDS ORDERED: HEPARIN SODIUM 1,000 UN/ML (10ML VL) IV ONE (01:24)
[2022-11-13] MEDS ORDERED: HEPARIN SODIUM 1,000 UN/ML (10ML VL) IV PRN (01:24)
[2022-11-13] MEDS ORDERED: ASPIRIN 81 MG PO STA (01:25)
[2022-11-13] MEDS ORDERED: NITROGLYCERIN OINT 1 INCH/GM PACKET TOPICAL STA (01:26)
[2022-11-13] MEDS ORDERED: SODIUM CHLORIDE 0.9% 500 ML 500 ML IV STA (01:28)
[2022-11-13] MEDS ORDERED: HEPARIN SOD,PORK IN 0.45% NACL 25,000 UNIT in 0.45% NACL 1 250ML.BAG IV SCH (01:30)
--- NOTE | 2022-11-13 02:12 | XR ---
EXAM: XR Chest, 2 Views CLINICAL HISTORY: ITS.REASON XR Reason: back pain TECHNIQUE: Frontal and lateral views of the chest. COMPARISON: No relevant prior studies available. IMPRESSION: Cardiomegaly. Mild edema. Trace effusion.
[2022-11-13 02:48] LABS: Partial Thromboplastin Time 24.1 sec (22.0-30.0); Prothrombin Time 10.5 sec (9.0-12.0)
[2022-11-13] MEDS ORDERED: NITROGLYCERIN SL TABS 0.4 MG TAB SUBLINGUAL PRN (03:00)
--- NOTE | 2022-11-13 08:47 | P.CRDCN ---
History of Present Illness Consult date: 11/13/22 History of present illness: History of Present Illness: The patient is a 77-year-old male with a known history of severe ischemic cardiac myopathy, status post ICD implantation, status post CABG and PCI, he underwent PCI of the left main and circumflex in [place] [address] Chisholm with mechanical support. He has a patent WHITE to the LAD and patent radial to the right PDA was occluded SVG to the PLV. He presented to the hospital with symptoms of dizziness, shoulder discomfort and back discomfort. He has chronic back pain and did not get his pain medication for a few days. He has chronic dyspnea on exertion but no recent peripheral edema. He has no PND or orthopnea. He is limited in his physical activity. He was in the hospital recently and underwent an echocardiogram that showed an ejection fraction of less than 20% with [id number] mitral and moderate tricuspid regurgitation. On presentation he had mild troponin elevation. Patient had similar elevation during recent admission in September and in June. He feels that the discomfort in the shoulder is related to his rotator cuff injury and different from his anginal pain. He has no discharges from his device. He has a history of hyperlipidemia, he is nondiabetic, nonsmoker. Medications: Coreg 3.125 mg twice a day, sotalol 80 mg twice a day, Cymbalta, Plavix 75 g daily, aspirin once a day, Lipitor 80 mg daily, Entresto 2426 milligrams twice a day Review of Systems: Respiratory: Chronic dyspnea on exertion but no recent cough or wheezing GI: No nausea or vomiting . No history of peptic ulcer disease. No recent GI bleed. : No hematuria or dysuria. Nervous System: No stroke or seizure. He has severe back discomfort Physical Examination: 77-year-old male, alert oriented no apparent distress,Blood pressure 137/70, Heart rate 90 Head: Normocephalic. Eyes: Sclerae nonicteric. Neck: Good carotid upstroke, no bruit, no jugular venous distention. Lungs: Clear to auscultation. Heart: Regular rate and rhythm, S1-S2, no S3, no rub. Holosystolic murmur at the apex. Abdomen: Soft nontender, positive bowel sounds no organomegaly. Extremities: No edema, intact distal pulses. Labs: Potassium 4.1, BUN 14, creatinine 1.1, troponin 0.131 and 0.935. Hemoglobin 14.2 WBC 9.5, chest x-ray with mild edema EKG: Sinus mechanism with evidence of permanent pacemaker function and occasional PVCs Impression: 1. Back and neck discomfort, probably noncardiac 2. Mild troponin elevation, probably related to chronic ischemic cardiomyopathy, no evidence to suggest acute coronary syndrome 3. Status post CABG and PCI 4. Severe ischemic cardiomyopathy 5. Status post ICD implantation 6. Hyperlipidemia Plan: 1. Resume beta rox, sotalol and Entresto 2. Start Aldactone 3. Start Farxiga 4. Follow renal functions 5. Depending on his progress further recommendations will be made, thank you for this consult we will follow with you. Past Medical History Past Medical History: Coronary Artery Disease (CAD), Chest Pain / Angina, COPD, Hyperlipidemia, Hypertension, Myocardial Infarction ([place]), Musculoskeletal Disorder, Osteoarthritis (OA), Prostate Disorder, Sleep Apnea/CPAP/BIPAP Additional Past Medical History / Comment(s): HH, fibromyalgia, anemia, hypogonadism, vtach, NSTEMI 10/20/19, CPAP use, Inogen portable. Kidney stones; left flank pain, chronic toni shoulder pain, states has numbness rt arm, recent adm. for chest pain, difficulty swallowing & weight loss Last Myocardial Infarction Date:: 08/21/21 History of Any Multi-Drug Resistant Organisms: None Reported Past Surgical History: Adenoidectomy, AICD, Back Surgery, Cholecystectomy, Coronary Bypass/CABG, Heart Catheterization, Hernia Repair, Orthopedic Surgery, Tonsillectomy Additional Past Surgical History / Comment(s): CABG x3 in 1999, rhinoplasty, ACDF 2, left bunionectomy, Lasik, lipoma from left shoulder 2, colonoscopy 5 years ago, hernia repair. pacer Past Anesthesia/Blood Transfusion Reactions: No Reported Reaction Type of Cardiac Device: Permanent Pacemaker, AICD Device Placement Date:: 12/12/19 Past Psychological History: No Psychological Hx Reported Smoking Status: Former smoker Past Alcohol Use History: None Reported Additional Past Alcohol Use History / Comment(s): Quit smoking 1985, smoked 2ppd from age 14 Past Drug Use History: None Reported - Past Family History Mother Family Medical History: Cancer, Coronary Artery Disease (CAD) Father Family Medical History: Cancer Brother(s) Family Medical History: Congestive Heart Failure (CHF), Coronary Artery Disease (CAD) Sister(s) Family Medical History: Congestive Heart Failure (CHF) Medications and Allergies Home Medications Medication Instructions Recorded Confirmed Type Aspirin 81 mg PO DAILY chew 10/26/19 11/13/22 Rx Clopidogrel [Plavix] 75 mg PO DAILY #30 tab 10/26/19 11/13/22 Rx Nitroglycerin Sl Tabs [Nitrostat] 0.4 mg SUBLINGUAL Q5M PRN #25 tab 10/26/19 0 11/13/22 Rx Vit C/E/Zn/Coppr/Lutein/Zeaxan 1 cap PO BID 12/08/19 11/13/22 History [Preservision Areds 2 Softgel] Atorvastatin [Lipitor] 80 mg PO HS 08/10/21 11/13/22 History DULoxetine HCL [Cymbalta] 60 mg PO DAILY 08/10/21 11/13/22 History Potassium Citrate [Urocit-K] 10 meq PO BID 08/10/21 11/13/22 History Lidocaine 5% Patch [Lidoderm 5% 1 patch TOPICAL DAILY 06/13/22 11/13/22 History Patch] Multivitamins, Thera [Multivitamin 1 tab PO DAILY 06/13/22 11/13/22 History (formulary)] Sotalol [Betapace] 80 mg PO BID 06/13/22 11/13/22 History oxyCODONE-APAP 10-325MG [Percocet 1 tab PO Q4HR PRN MDD 5 tabs 06/13/22 11/13/22 History 10-325 mg] Cholecalciferol [Vitamin D3 (25 50 mcg PO DAILY 30 Days #30 tab 06/19/22 11/13/22 Rx Mcg = 1000 Iu)] ALPRAZolam [Xanax] 0.5 mg PO BID PRN 09/20/22 11/13/22 History Ascorbic Acid [Vitamin C] 500 mg PO DAILY 09/20/22 11/13/22 History Furosemide [Lasix] 40 mg PO Q12HR #60 tab 09/24/22 11/13/22 Rx carvediloL [Coreg] 3.125 mg PO BID-W/MEALS #60 tab 09/24/22 11/13/22 Rx Sacubitril/Valsartan [Entresto 24 1 tab PO BID 11/13/22 11/13/22 History mg-26 mg Tablet] Allergies Allergy/AdvReac Type Severity Reaction Status Date / Time Iodinated Contrast Media Allergy Rash/Hives Verified 11/13/22 07:39 Physical Exam Vitals: Vital Signs Temp Pulse Pulse Resp BP BP Pulse Ox 11/13/22 04:10 98 F 101 H 20 137/73 92 L 11/13/22 03:40 99 21 148/78 11/13/22 03:00 99 19 159/88 97 11/13/22 02:40 99 20 148/84 95 11/13/22 02:30 99 20 152/81 94 L 11/13/22 02:10 101 H 20 154/82 96 11/13/22 02:00 100 20 126/73 95 11/13/22 01:40 138/75 11/13/22 01:30 98 22 162/82 95 11/13/22 01:10 102 H 24 119/84 97 11/13/22 01:00 103 H 26 H 170/89 98 11/13/22 00:40 104 H 26 H 162/89 98 11/13/22 00:30 104 H 26 H 167/92 95 11/13/22 00:10 105 H 29 H 159/92 11/12/22 23:50 104 H 16 167/90 100 11/12/22 22:35 97.5 F L 99 16 181/98 97 Intake and Output 11/12/22 11/13/22 11/13/22 22:59 06:59 14:59 Other: Weight 63.049 kg 63.049 kg Results 11/12/22 23:20 11/12/22 23:20 Cardiac Enzymes 11/12/22 11/12/22 11/13/22 Range/Units 23:20 23:20 04:08 AST 31 (17-59) U/L Troponin I 0.131 H* 0.935 H* (0.000-0.034) ng/mL Coagulation 11/13/22 11/13/22 Range/Units 01:50 07:34 PT 10.5 (9.0-12.0) sec APTT 24.1 25.0 (22.0-30.0) sec CBC 11/12/22 Range/Units 23:20 WBC 9.5 (3.8-10.6) k/uL RBC 4.86 (4.30-5.90) m/uL Hgb 14.2 (13.0-17.5) gm/dL Hct 45.1 (39.0-53.0) % Plt Count 246 (150-450) k/uL Comprehensive Metabolic Panel 11/12/22 Range/Units 23:20 Sodium 138 (137-145) mmol/L Potassium 4.1 (3.5-5.1) mmol/L Chloride 105 (98-107) mmol/L Carbon Dioxide 21 L (22-30) mmol/L BUN 14 (9-20) mg/dL Creatinine 1.19 (0.66-1.25) mg/dL Glucose 116 H (74-99) mg/dL Calcium 9.5 (8.4-10.2) mg/dL AST 31 (17-59) U/L ALT 16 (4-49) U/L Alkaline Phosphatase 111 (38-126) U/L Total Protein 7.5 (6.3-8.2) g/dL Albumin 4.2 (3.5-5.0) g/dL Current Medications Generic Name Dose Route Start Last Admin Trade Name Freq PRN Reason Stop Dose Admin Aspirin 325 mg 11/14/22 09:00 Aspirin 325 Mg Tab PO DAILY [facility] Heparin Sodium (Porcine) 0 unit 11/13/22 01:24 Heparin Sodium 1,000 Un/Ml (10ml Vl) IV PER PROTOCOL PRN Low PTT Protocol Heparin Sodium/Sodium Chloride 250 mls @ 7.566 mls/hr 11/13/22 01:30 11/13/22 01:50 25,000 unit/ Sodium Chloride IV 12 units/kg/hr .Q24H GORDY 7.566 mls/hr Administration Protocol 12 UNITS/KG/HR Nitroglycerin 0.4 mg 11/13/22 03:00 Nitroglycerin Sl Tabs 0.4 Mg Tab SUBLINGUAL Q5M PRN Chest Pain Intake and Output 11/12/22 11/13/22 11/13/22 22:59 06:59 14:59 Other: Weight 63.049 kg 63.049 kg 11/12/22 23:20 11/12/22 23:20
[2022-11-13] MEDS: FUROSEMIDE 40 MG TAB PO SCH ×2 (09:35→19:37)
[2022-11-13] MEDS: DAPAGLIFLOZIN PROPANEDIOL 10 MG TABLET PO SCH (09:35)
[2022-11-13] MEDS: SACUBITRIL/VALSARTAN 24 MG-26 MG TABLET PO SCH ×2 (09:35→19:37)
[2022-11-13] MEDS: POTASSIUM CITRATE 10 MEQ TABLET.ER PO SCH ×2 (09:35→19:37)
[2022-11-13] MEDS: SOTALOL 80 MG TAB PO SCH ×2 (09:35→19:37)
[2022-11-13] MEDS: CLOPIDOGREL 75 MG TAB PO SCH (09:35)
[2022-11-13] MEDS: carvediloL 3.125 MG TAB PO SCH ×2 (09:37→18:05)
[2022-11-13 09:38] VITALS: BMI 20.5
[2022-11-13] MEDS: oxyCODONE-APAP 10-325MG 1 EACH TAB PO PRN ×3 (11:31→19:37)
[2022-11-13] MEDS ORDERED: ALPRAZolam 0.5 MG TAB PO PRN (13:26)
[2022-11-13] MEDS: ASCORBIC ACID 500 MG TAB PO SCH (14:08)
[2022-11-13] MEDS: DULoxetine HCL 60 MG CAPSULE.DR PO SCH (14:08)
[2022-11-13] MEDS: LIDOCAINE 5% PATCH TOPICAL SCH (14:08)
--- NOTE | 2022-11-13 15:12 | P.HPIM ---
History of Present Illness H&P Date: 11/13/22 This is a pleasant 77-year-old male who presented to the emergency department via EMS with chest pain, thoracic and back pain and found to have elevated troponins. Patient reports he was at home and chronically has back and shoulder and neck pain and follows with pain management outpatient as he has a pacemaker and unable to receive MRI. Patient reported he was unable to receive his Percocets that were prescribed to him by his doctor as the pharmacies were out of them and started experiencing more pain. Patient reports he was attempting to get up and started feeling dizzy and lightheaded and called 911 and presented to the emergency department. Patient is being admitted with elevated troponins with cardiology on consult. Patient's initial troponin in the ER was 0.935 and second troponin this morning was 2.02. Patient denies chest pain currently although does report significant pain which is chronic in his neck and shoulders and upper back area. All medications reviewed and resumed. BNP was also found to be 38,300 and patient was given a dose of Lasix IV in the ER. Home me dications including Lasix twice daily has been resumed along with farxiga and entresto. Patient also takes sotalol twice daily. Chest x-ray shows mild edema with a trace effusion and cardiomegaly, EKG showed electronically paced and ventricular rate was 101. Patient reports he follows with Dr. Hassan in the outpatient setting with a past medical history of coronary artery disease with CABG in 1999, pacemaker placement AICD in 2019, angina, COPD, hyperlipidemia, hypertension, myocardial infarctions, osteoarthritis, sleep apnea with CPAP use, fibromyalgia, former smoker and denies any other illicit drugs or alcohol use. Patient reports he does have oxygen at home if needed and currently maintained on 2 L and oxygen saturation is 98%. Review Of Systems: Constitutional: No fever, no chills, no night sweats. No weight change. No weakness, fatigue or lethargy. No daytime sleepiness. EENT: No headache. No blurred vision or double vision, no loss of vision. No loss of Hearing, no ringing in the ears, no dizziness. No nasal drainage or congestion. No epistaxis. No sore throat. Lungs: No shortness of breath, cough, no sputum production. No wheezing. Cardiovascular: Reported chest pain, no lower extremity edema. No palpitations. No paroxysmal nocturnal dyspnea. No orthopnea. Reported lightheadedness and dizziness. No syncopal episodes. Abdominal: No abdominal pain. No nausea, vomiting. No diarrhea. No constipation. No bloody or tarry stools.. No loss of appetite. Genitourinary: No dysuria, increased frequency, urgency. No urinary retention. Musculoskeletal: No myalgias. No muscle weakness, no gait dysfunction, no frequent falls. No back pain. No neck pain. Integumentary: No wounds, no lesions. No rash or pruritus. No unusual bruising. No change in hair or nails. Neurologic: No aphasia. No facial droop. No change in mentation. No head injury. No headache. No paralysis. No paresthesia. Psychiatric: No depression. No anxiety. No mood swings. Endocrine: No abnormal blood sugars. No weight change. No excessive sweating or thirst. No cold intolerance. PHYSICAL EXAMINATION: GENERAL: The patient is alert and oriented x4, thin built, elderly appearing HEENT: Pupils are round and equally reacting to light. EOMI. no scleral icterus. No conjunctival pallor. Normocephalic, atraumatic. No pharyngeal erythema. No thyromegaly. CARDIOVASCULAR: S1 and S2 muffled PULMONARY: diminished breath sounds bilaterally with no wheezing or rhonchi noted. ABDOMEN: soft. Nontender on exam. Thin non-distended, normoactive bowel sounds. No palpable organomegaly. MUSCULOSKELETAL: No joint swelling or deformity. EXTREMITIES: No cyanosis, clubbing, or pedal edema. Diffuse weakness SKIN: No rashes. Assessment: Thoracic back and shoulder pain, chronic with associated chest pain Elevated troponins possible acute NSTEMI, type I History of ischemic cardiomyopathy with most recent EF of 20% Elevated BNP of 38,000, does not appear to be volume overloaded History of CABG with stenting Permanent pacemaker AICD in 2020 History of fibromyalgia Hyperlipidemia COPD, not an exacerbation hypertension Former smoker GI prophylaxis DVT prophylaxis Full code Plan: Recommend to continue with current medications and management with cardiology on consult. Patient was admitted with elevated troponins and does have significant history of ischemic cardiomyopathy with a permanent pacemaker and is maintained on aspirin and Plavix Recommend continue telemetry monitoring Home medications reviewed and resumed Patient's initial troponin to second troponin elevated and will await cardiology input and appreciate recommendations Patient is oral Lasix twice daily has been resumed as patient does not appear to be volume overloaded with no lower extremity swelling. Patient denies significant shortness of breath. Patient reports he uses supplemental oxygen as needed at the home as well and does not feel more short of breath. Patient with chronic pain in the thoracic area including neck and shoulder and does follow with pain management in the outpatient setting Will follow-up on repeat labs in the a.m. and await cardiology input The impression and plan of care has been dictated by Pat Casper, nurse practitioner as directed. Dr. Nitin MD I have performed a history and examination and MDM of this patient, discussed the same with the dictator, and agree with the dictator's assessment and plan as written ,documented as a scribe. Based on total visit time, I have performed more than 50% of the visit. Any additional findings or plans will be noted. Past Medical History Past Medical History: Coronary Artery Disease (CAD), Chest Pain / Angina, COPD, Hyperlipidemia, Hypertension, Myocardial Infarction (NV), Musculoskeletal Disorder, Osteoarthritis (OA), Prostate Disorder, Sleep Apnea/CPAP/BIPAP Additional Past Medical History / Comment(s): HH, fibromyalgia, anemia, hypogonadism, vtach, NSTEMI 10/20/19, CPAP use, Inogen portable. Kidney stones; left flank pain, chronic toni shoulder pain, states has numbness rt arm, recent adm. for chest pain, difficulty swallowing & weight loss Last Myocardial Infarction Date:: 08/21/21 History of Any Multi-Drug Resistant Organisms: None Reported Past Surgical History: Adenoidectomy, AICD, Back Surgery, Cholecystectomy, C oronary Bypass/CABG, Heart Catheterization, Hernia Repair, Orthopedic Surgery, Tonsillectomy Additional Past Surgical History / Comment(s): CABG x3 in 1999, rhinoplasty, ACDF 2, left bunionectomy, Lasik, lipoma from left shoulder 2, colonoscopy 5 years ago, hernia repair. pacer Past Anesthesia/Blood Transfusion Reactions: No Reported Reaction Type of Cardiac Device: Permanent Pacemaker, AICD Device Placement Date:: 12/12/19 Past Psychological History: No Psychological Hx Reported Smoking Status: Former smoker Past Alcohol Use History: None Reported Additional Past Alcohol Use History / Comment(s): Quit smoking 1985, smoked 2ppd from age 14 Past Drug Use History: None Reported - Past Family History Mother Family Medical History: Cancer, Coronary Artery Disease (CAD) Father Family Medical History: Cancer Brother(s) Family Medical History: Congestive Heart Failure (CHF), Coronary Artery Disease (CAD) Sister(s) Family Medical History: Congestive Heart Failure (CHF) Medications and Allergies Home Medications Medication Instructions Recorded Confirmed Type Aspirin 81 mg PO DAILY chew 10/26/19 11/13/22 Rx Clopidogrel [Plavix] 75 mg PO DAILY #30 tab 10/26/19 11/13/22 Rx Nitroglycerin Sl Tabs [Nitrostat] 0.4 mg SUBLINGUAL Q5M PRN #25 tab 10/26/19 11/13/22 Rx Vit C/E/Zn/Coppr/Lutein/Zeaxan 1 cap PO BID 12/08/19 11/13/22 History [Preservision Areds 2 Softgel] Atorvastatin [Lipitor] 80 mg PO HS 08/10/21 11/13/22 History DULoxetine HCL [Cymbalta] 60 mg PO DAILY 08/10/21 11/13/22 History Potassium Citrate [Urocit-K] 10 meq PO BID 08/10/21 11/13/22 History Lidocaine 5% Patch [Lidoderm 5% 1 patch TOPICAL DAILY 06/13/22 11/13/22 History Patch] Multivitamins, Thera [Multivitamin 1 tab PO DAILY 06/13/22 11/13/22 History (formulary)] Sotalol [Betapace] 80 mg PO BID 06/13/22 11/13/22 History oxyCODONE-APAP 10-325MG [Percocet 1 tab PO Q4HR PRN MDD 5 tabs 06/13/22 11/13/22 History 10-325 mg] Cholecalciferol [Vitamin D3 (25 50 mcg PO DAILY 30 Days #30 tab 06/19/22 11/13/22 Rx Mcg = 1000 Iu)] ALPRAZolam [Xanax] 0.5 mg PO BID PRN 09/20/22 11/13/22 History Ascorbic Acid [Vitamin C] 500 mg PO DAILY 09/20/22 11/13/22 History Furosemide [Lasix] 40 mg PO Q12HR #60 tab 09/24/22 11/13/22 Rx carvediloL [Coreg] 3.125 mg PO BID-W/MEALS #60 tab 09/24/22 11/13/22 Rx Sacubitril/Valsartan [Entresto 24 1 tab PO BID 11/13/22 11/13/22 History mg-26 mg Tablet] Allergies Allergy/AdvReac Type Severity Reaction Status Date / Time Iodinated Contrast Media Allergy Rash/Hives Verified 11/13/22 07:39 Physical Exam Vitals: Vital Signs Temp Pulse Pulse Resp BP BP Pulse Ox 11/13/22 04:10 98 F 101 H 20 137/73 92 L 11/13/22 03:40 99 21 148/78 11/13/22 03:00 99 19 159/88 97 11/13/22 02:40 99 20 148/84 95 11/13/22 02:30 99 20 152/81 94 L 11/13/22 02:10 101 H 20 154/82 96 11/13/22 02:00 100 20 126/73 95 11/13/22 01:40 138/75 11/13/22 01:30 98 22 162/82 95 11/13/22 01:10 102 H 24 119/84 97 11/13/22 01:00 103 H 26 H 170/89 98 11/13/22 00:40 104 H 26 H 162/89 98 11/13/22 00:30 104 H 26 H 167/92 95 11/13/22 00:10 105 H 29 H 159/92 11/12/22 23:50 104 H 16 167/90 100 11/12/22 22:35 97.5 F L 99 16 181/98 97 Intake and Output 11/12/22 11/13/22 11/13/22 22:59 06:59 14:59 Other: Weight 63.049 kg 63.049 kg Results CBC & Chem 7: 11/12/22 23:20 11/12/22 23:20 Labs: Abnormal Lab Results - Last 24 Hours (Table) 11/12/22 11/12/22 11/12/22 Range/Units 23:20 23:20 23:20 Carbon Dioxide 21 L (22-30) mmol/L Glucose 116 H (74-99) mg/dL Plasma Lactic Acid Kyle 2.5 H* (0.7-2.0) mmol/L Troponin I 0.131 H* (0.000-0.034) ng/mL 11/13/22 11/13/22 Range/Units 04:08 07:34 Carbon Dioxide (22-30) mmol/L Glucose (74-99) mg/dL Plasma Lactic Acid Kyle (0.7-2.0) mmol/L Troponin I 0.935 H* 2.020 H* (0.000-0.034) ng/mL Thrombosis Risk Factor Assmnt - Choose All That Apply Any of the Below Risk Factors Present?: Yes Each Factor Represents 1 point: Abnormal pulmonary function (COPD), Medical pt on bed rest Other Risk Factors: Yes Each Risk Factor Represents 3 Points: Age 75 years or older Other congenital or acquired thrombophilia - If yes, enter type in comment: No Thrombosis Risk Factor Assessment Total Risk Factor Score: 5 Thrombosis Risk Factor Assessment Level: High Risk Assessment and Plan Time with Patient: Greater than 30
[2022-11-13] MEDS ORDERED: MORPHINE SULFATE 4 MG/ML SYRINGE IVP STA (17:57)
[2022-11-13] MEDS: VIT A,C & E-LUTEIN-MINERALS 1 EACH TAB PO SCH (20:13)
[2022-11-13] MEDS ORDERED: ATORVASTATIN 80 MG TAB PO SCH (21:00)
[2022-11-14] MEDS: oxyCODONE-APAP 10-325MG 1 EACH TAB PO PRN ×2 (03:09→08:25)
[2022-11-14] MEDS: carvediloL 3.125 MG TAB PO SCH (06:21)
[2022-11-14 07:21] LABS: African American GFR (CKD) 58 (>60 ml/min/1.73 sqM); Anion Gap 4 mmol/L; Blood Urea Nitrogen 17 mg/dL (9-20); Calcium 8.5 mg/dL (8.4-10.2); Carbon Dioxide 26 mmol/L (22-30); Chloride 105 mmol/L (98-107); Glucose 86 mg/dL (74-99); Non-African American GFR(CKD) 50 (>60 ml/min/1.73 sqM); Potassium 3.7 mmol/L (3.5-5.1); Sodium 135 mmol/L (137-145)
[2022-11-14 08:19] VITALS: TEMP 98.1
[2022-11-14] MEDS: POTASSIUM CITRATE 10 MEQ TABLET.ER PO SCH (08:22)
[2022-11-14] MEDS: SACUBITRIL/VALSARTAN 24 MG-26 MG TABLET PO SCH (08:22)
[2022-11-14] MEDS: FUROSEMIDE 40 MG TAB PO SCH (08:23)
[2022-11-14] MEDS: CLOPIDOGREL 75 MG TAB PO SCH (08:23)
[2022-11-14] MEDS: DULoxetine HCL 60 MG CAPSULE.DR PO SCH (08:23)
[2022-11-14] MEDS: SOTALOL 80 MG TAB PO SCH (08:23)
[2022-11-14] MEDS: DAPAGLIFLOZIN PROPANEDIOL 10 MG TABLET PO SCH (08:23)
[2022-11-14] MEDS: VIT A,C & E-LUTEIN-MINERALS 1 EACH TAB PO SCH (08:24)
[2022-11-14] MEDS: LIDOCAINE 5% PATCH TOPICAL SCH (08:24)
[2022-11-14] MEDS: ASCORBIC ACID 500 MG TAB PO SCH (08:24)
[2022-11-14] MEDS ORDERED: MULTIVITAMINS, THERA 1 EACH TAB PO SCH (09:00)
[2022-11-14] MEDS ORDERED: CHOLECALCIFEROL 25 MCG (1000 IU) TABLET PO SCH (09:00)
[2022-11-14] MEDS ORDERED: ASPIRIN 325 MG TAB PO SCH (09:00)
[2022-11-14] MEDS ORDERED: ASPIRIN 81 MG PO SCH (09:00)
[2022-11-14 11:05] VITALS: BP 105/59; PULSE 63; RESP 16
[2022-11-15 09:27] LABS: LDL Cholesterol,Calculated 80.3 mg/dL; VLDL Calculation 14.36 mg/dL
--- NOTE | 2022-11-16 10:24 | P.DS ---
Providers Date of admission: 11/13/22 03:00 Attending physician: Felicia Nice Consults: 11/13/22 03:00 Consult Physician Urgent Consulting Provider: Georgi Conway Consult Reason/Comments: elevated troponin. thoracic pain Do you want consulting provider notified?: Yes Primary care physician: Cong Hassan [facility] Course: Final Diagnosis Thoracic back and shoulder pain, chronic with associated chest pain Chronic narcotic use patient has been out of percocet for 6 days and this could be attributing to the increased pain. Elevated troponins, ACS has been ruled out History of ischemic cardiomyopathy with most recent EF of 20% Elevated BNP of 38,000, does not appear to be volume overloaded History of CABG with stenting Permanent pacemaker AICD in 2020 History of fibromyalgia Hyperlipidemia COPD, not an exacerbation hypertension Former smoker Full Code Plan Patient is stable for discharge has been cleared by cardiology felt the chest pain is noncardiac in nature. Patient has been out of his percocet script he takes for chronic pain for the last 6 days. has picked up his prescription already for him. Patient reports improvement in all symptoms after being resumed on pain medication in the hospital. He as also started on farxiga on discharge. He will be discharged home. Recommend to see his PCP Dr Hassan in 1 to 2 days and cardiology in 1 to 2 weeks. Hospital Course This is a pleasant 77-year-old male who presented to the emergency department via EMS with chest pain, thoracic and back pain and found to have elevated troponins. Patient reports he was at home and chronically has back and shoulder and neck pain and follows with pain management outpatient as he has a pacemaker and unable to receive MRI. Patient reported he was unable to receive his Percocets that were prescribed to him by his doctor as the pharmacies were out of them and started experiencing more pain. Patient reports he was attempting to get up and started feeling dizzy and lightheaded and called 911 and presented to the emergency department. Patient is being admitted with elevated troponins with cardiology on consult. Patient's initial troponin in the ER was 0.935 and second troponin this morning was 2.02. Patient denies chest pain currently although does report significant pain which is chronic in his neck and shoulders and upper back area. All medications reviewed and resumed. BNP was also found to be 38,300 and patient was given a dose of Lasix IV in the ER. Home medications including Lasix twice daily has been resumed along with farxiga and entresto. Patient also takes sotalol twice daily. Chest x-ray shows mild edema with a trace effusion and cardiomegaly, EKG showed electronically paced and ventricular rate was 101. Patient reports he follows with Dr. Hassan in the outpatient setting with a past medical history of coronary artery disease with CABG in 1999, pacemaker placement AICD in 2019, angina, COPD, hyperlipidemia, hypertension, myocardial infarctions, osteoarthritis, sleep apnea with CPAP use, fibromyalgia, former smoker and denies any other illicit drugs or alcohol use. Patient reports he does have oxygen at home if needed and currently maintained on 2 L and oxygen saturation is 98%. Cardiology evaluated the patient and felt the chest pain was noncardiac in nature and patient is currently denying chest pain, denying shortness of breath. He reports improvement in pain since being resumed on his percocet. Lipid panel is WNL. Patients lungs are clear S1 S2 auscultated abdomen is soft and nontender. patient is alert x 3 and focal neurological exam is negative. Patient will be discharged home with the above mentioned recommendations and to see his PCP on discharge. Please see medication reconciliation for a list of current medication. Thank you for allowing us to participate in the care of this patient. The impression and plan of care has been dictated by Lori Esteves, Nurse Practitioner as directed. Dr. Nitin MD I have performed a history and physical examination and medical decision making of this patient, discussed the same with the dictator, and agree with the dictators assessment and plan as written, documented as a scribe. Based on total visit time, I have performed more than 50% of this visit. Patient Condition at Discharge: Stable Plan - Discharge Summary Discharge Rx Participant: No New Discharge Prescriptions: New Dapagliflozin Propanediol [Farxiga] 10 mg PO DAILY #30 tablet Continue Aspirin 81 mg PO DAILY chew Nitroglycerin Sl Tabs [Nitrostat] 0.4 mg SUBLINGUAL Q5M PRN #25 tab PRN Reason: Chest Pain Clopidogrel [Plavix] 75 mg PO DAILY #30 tab Vit C/E/Zn/Coppr/Lutein/Zeaxan [Preservision Areds 2 Softgel] 1 cap PO BID Potassium Citrate [Urocit-K] 10 meq PO BID Multivitamins, Thera [Multivitamin (formulary)] 1 tab PO DAILY Lidocaine 5% Patch [Lidoderm 5% Patch] 1 patch TOPICAL DAILY Cholecalciferol [Vitamin D3 (25 Mcg = 1000 Iu)] 50 mcg PO DAILY 30 Days #30 tab carvediloL [Coreg] 3.125 mg PO BID-W/MEALS #60 tab Sacubitril/Valsartan [Entresto 24 mg-26 mg Tablet] 1 tab PO BID Atorvastatin [Lipitor] 80 mg PO HS DULoxetine HCL [Cymbalta] 60 mg PO DAILY Sotalol [Betapace] 80 mg PO BID oxyCODONE-APAP 10-325MG [Percocet 10-325 mg] 1 tab PO Q4HR PRN MDD 5 tabs PRN Reason: Pain ALPRAZolam [Xanax] 0.5 mg PO BID PRN PRN Reason: Anxiety Ascorbic Acid [Vitamin C] 500 mg PO DAILY Furosemide [Lasix] 40 mg PO Q12HR #60 tab Discharge Medication List Aspirin 81 mg PO DAILY chew 10/26/19 [Rx] Clopidogrel [Plavix] 75 mg PO DAILY #30 tab 10/26/19 [Rx] Nitroglycerin Sl Tabs [Nitrostat] 0.4 mg SUBLINGUAL Q5M PRN #25 tab 10/26/19 [Rx] Vit C/E/Zn/Coppr/Lutein/Zeaxan [Preservision Areds 2 Softgel] 1 cap PO BID 12/08/19 [History] Atorvastatin [Lipitor] 80 mg PO HS 08/10/21 [History] DULoxetine HCL [Cymbalta] 60 mg PO DAILY 08/10/21 [History] Potassium Citrate [Urocit-K] 10 meq PO BID 08/10/21 [History] Lidocaine 5% Patch [Lidoderm 5% Patch] 1 patch TOPICAL DAILY 06/13/22 [History] Multivitamins, Thera [Multivitamin (formulary)] 1 tab PO DAILY 06/13/22 [History] Sotalol [Betapace] 80 mg PO BID 06/13/22 [History] oxyCODONE-APAP 10-325MG [Percocet 10-325 mg] 1 tab PO Q4HR PRN MDD 5 tabs 06/13/22 [History] Cholecalciferol [Vitamin D3 (25 Mcg = 1000 Iu)] 50 mcg PO DAILY 30 Days #30 tab 06/19/22 [Rx] ALPRAZolam [Xanax] 0.5 mg PO BID PRN 09/20/22 [History] Ascorbic Acid [Vitamin C] 500 mg PO DAILY 09/20/22 [History] Furosemide [Lasix] 40 mg PO Q12HR #60 tab 09/24/22 [Rx] carvediloL [Coreg] 3.125 mg PO BID-W/MEALS #60 tab 09/24/22 [Rx] Sacubitril/Valsartan [Entresto 24 mg-26 mg Tablet] 1 tab PO BID 11/13/22 [History] Dapagliflozin Propanediol [Farxiga] 10 mg PO DAILY #30 tablet 11/14/22 [Rx] Follow up Appointment(s)/Referral(s): [facility] [Provider Group] - 1 Week (Office is closed. Please call to schedule appointment) Cong Hassan DO [Primary Care Provider] - 3 Days (Office is closed. Please call to schedule appoinmtent) Discharge Disposition: HOME SELF-CARE
== END 2022-11-14 14:34 | disposition home or self-care (01) | DRG 552 ==
LOC: EC 22:35 → 3SCARD 11-13 03:00 → OBSVTOIN 11-13 14:52 → UNDODISOB 11-14 14:34
PROVIDERS: ADMIT Hospitalist; ATTEND Hospitalist
DX: M54.6 Pain in thoracic spine (principal); I25.810 Atherosclerosis of coronary artery bypass graft(s) without angina pectoris; E78.5 Hyperlipidemia, unspecified; G89.29 Other chronic pain; I08.1 Rheumatic disorders of both mitral and tricuspid valves; I10 Essential (primary) hypertension; I25.119 Atherosclerotic heart disease of native coronary artery with unspecified angina pectoris; I25.5 Ischemic cardiomyopathy; I25.2 Old myocardial infarction; R77.8 Other specified abnormalities of plasma proteins; M54.2 Cervicalgia; J44.9 Chronic obstructive pulmonary disease, unspecified; G47.30 Sleep apnea, unspecified; R13.10 Dysphagia, unspecified; M79.7 Fibromyalgia; Z79.02 Long term (current) use of antithrombotics/antiplatelets; Z79.82 Long term (current) use of aspirin; Z79.891 Long term (current) use of opiate analgesic; Z79.899 Other long term (current) drug therapy; Z82.49 Family history of ischemic heart disease and other diseases of the circulatory system; Z87.442 Personal history of urinary calculi; Z87.891 Personal history of nicotine dependence; Z95.810 Presence of automatic (implantable) cardiac defibrillator; Z98.61 Coronary angioplasty status; Z71.3 Dietary counseling and surveillance; Z91.041 Radiographic dye allergy status
CPT/HCPCS: 36415; 71046; 80048; 80053; 80061; 83605; 83735; 83880; 84484; 85025; 85610; 85730; 93005; 94760

== ENCOUNTER 2022-11-30 22:31 | Inpatient (IN) | payer MEDICARE ==
--- NOTE | 2022-11-30 23:44 | ED ---
General Adult HPI - General Source: patient, EMS, RN notes reviewed Mode of arrival: EMS <Di Flor - Last Filed: 12/01/22 21:36> <Monique Finch - Last Filed: 12/07/22 22:54> - General Chief complaint: Abdominal Pain Stated complaint: POSSIBLE DEHYDRATION Time Seen by Provider: 11/30/22 22:51 - History of Present Illness Initial comments: 77-year-old male with an extensive cardiac medical history presents to the emergency department the chief complaint of abdominal pain. Patient reports generalized upper abdominal pain that is in the front and back over the last couple days. She reports that it is a sharp pain at rest. Denies any nausea or vomiting. He does report having diarrhea for the last week. Denies sick contacts. He denies any chest pain. He does report worsening shortness of breath over the last 2 weeks. Denies fevers, flank pain. He does report having some dysuria. (Di Flor) - Related Data Home Medications Medication Instructions Recorded Confirmed Vit C/E/Zn/Coppr/Lutein/Zeaxan 1 cap PO BID 12/08/19 12/01/22 [Preservision Areds 2 Softgel] Atorvastatin [Lipitor] 80 mg PO HS 08/10/21 12/01/22 DULoxetine HCL [Cymbalta] 60 mg PO DAILY 08/10/21 12/01/22 Potassium Citrate [Urocit-K] 10 meq PO BID 08/10/21 12/01/22 Lidocaine 5% Patch [Lidoderm 5% 1 patch TRANSDERM DAILY 06/13/22 12/01/22 Patch] Multivitamins, Thera [Multivitamin 1 tab PO DAILY 06/13/22 12/01/22 (formulary)] oxyCODONE-APAP 10-325MG [Percocet 1 tab PO Q4HR PRN MDD 5 tabs 06/13/22 12/01/22 10-325 mg] ALPRAZolam [Xanax] 0.5 mg PO BID PRN 09/20/22 12/01/22 Ascorbic Acid [Vitamin C] 500 mg PO DAILY 09/20/22 12/01/22 Sacubitril/Valsartan [Entresto 24 1 tab PO BID 11/13/22 12/01/22 mg-26 mg Tablet] Nitroglycerin Sl Tabs [Nitrostat] 0.4 mg SL Q5M PRN 12/01/22 12/01/22 Previous Rx's Medication Instructions Recorded Aspirin 81 mg PO DAILY chew 10/26/19 Clopidogrel [Plavix] 75 mg PO DAILY #30 tab 10/26/19 Cholecalciferol [Vitamin D3 (25 50 mcg PO DAILY 30 Days #30 tab 06/19/22 Mcg = 1000 Iu)] Furosemide [Lasix] 40 mg PO Q12HR #60 tab 09/24/22 carvediloL [Coreg] 3.125 mg PO BID-W/MEALS #60 tab 09/24/22 Dapagliflozin Propanediol [Farxiga] 10 mg PO DAILY #30 tablet 11/14/22 Allergies Allergy/AdvReac Type Severity Reaction Status Date / Time Iodinated Contrast Media Allergy Rash/Hives Verified 12/01/22 08:42 Review of Systems ROS Other: All systems not noted in ROS Statement are negative. <iD Flor - Last Filed: 12/01/22 21:36> ROS Other: All systems not noted in ROS Statement are negative. <Monique Finch - Last Filed: 12/07/22 22:54> ROS Statement: Those systems with pertinent positive or pertinent negative responses have been documented in the HPI. Past Medical History Past Medical History: Coronary Artery Disease (CAD), Chest Pain / Angina, COPD, Hyperlipidemia, Hypertension, Myocardial Infarction (NV), Musculoskeletal Disorder, Osteoarthritis (OA), Prostate Disorder, Sleep Apnea/CPAP/BIPAP Additional Past Medical History / Comment(s): HH, fibromyalgia, anemia, hypogonadism, vtach, NSTEMI 10/20/19, CPAP use, Inogen portable. Kidney stones; left flank pain, chronic toni shoulder pain, states has numbness rt arm, recent adm. for chest pain, difficulty swallowing & weight loss Last Myocardial Infarction Date:: 10/20/19 History of Any Multi-Drug Resistant Organisms: None Reported Past Surgical History: Adenoidectomy, AICD, Back Surgery, Cholecystectomy, Coronary Bypass/CABG, Heart Catheterization, Hernia Repair, Orthopedic Surgery, Tonsillectomy Additional Past Surgical History / Comment(s): CABG x3 in 1999, rhinoplasty, ACDF 2, left bunionectomy, Lasik, lipoma from left shoulder 2, colonoscopy 5 years ago, hernia repair. pacer Past Anesthesia/Blood Transfusion Reactions: No Reported Reaction Type of Cardiac Device: AICD Device Placement Date:: 12/12/19 Past Psychological History: No Psychological Hx Reported Smoking Status: Former smoker Past Alcohol Use History: None Reported Past Drug Use History: Marijuana - Past Family History Mother Family Medical History: Cancer, Coronary Artery Disease (CAD) Father Family Medical History: Cancer Brother(s) Family Medical History: Congestive Heart Failure (CHF), Coronary Artery Disease (CAD) Sister(s) Family Medical History: Congestive Heart Failure (CHF) <Di Flor - Last Filed: 12/01/22 21:36> General Exam <Di Flor - Last Filed: 12/01/22 21:36> - General Exam Comments Initial Comments: General: Alert, in no acute distress Head: atraumatic normocephalic. Eyes PERRL, EOMI intact, mucous membranes moist Respiratory: Lungs clear to auscultation bilaterally Cardiovascular: Heart rate regular rate and rhythm Abdominal: Soft without guarding or rebound, generalized tenderness Extremities: Normal inspection with full range of motion and normal capillary refill Neuroogic: alert and oriented 3, CN II-XII intact, able to ambulate with steady gait Skin: warm dry and intact with normal color (Di Flor) Course Vital Signs 11/30/22 12/01/22 12/01/22 22:33 01:09 02:18 Temperature 98.1 F Pulse Rate 86 93 96 Pulse Rate [ Pulse Oximetery ] Respiratory 20 18 20 Rate Blood Pressure 135/86 157/86 160/97 Blood Pressure [Right Arm] O2 Sat by Pulse 100 99 96 Oximetry 12/01/22 12/01/22 12/01/22 03:47 05:16 09:10 Temperature Pulse Rate 96 90 Pulse Rate [ Pulse Oximetery ] Respiratory 20 18 14 Rate Blood Pressure 150/78 155/86 Blood Pressure 151/87 [Right Arm] O2 Sat by Pulse 96 97 99 Oximetry 12/01/22 12/01/22 14:00 14:08 Temperature Pulse Rate Pulse Rate [ 94 Pulse Oximetery ] Respiratory 16 16 Rate Blood Pressure Blood Pressure 131/85 [Right Arm] O2 Sat by Pulse 99 Oximetry EKG Findings - EKG Comments: EKG Findings:: I interpreted the following: EKG performed at 22:37 rate 95 bpm FL interval 167, QRS ratio 137, QT/QTc 385/438 electronically paced <Di Flor - Last Filed: 12/01/22 21:36> Medical Decision Making - Lab Data Result diagrams: 12/01/22 11:34 12/01/22 11:34 <Di Flor - Last Filed: 12/01/22 21:36> - Lab Data Result diagrams: 12/07/22 06:57 12/07/22 06:57 <StefMonique Devante - Last Filed: 12/07/22 22:54> - Medical Decision Making Was pt. sent in by a medical professional or institution (, PA, QUALITY CONTROL ANALYST, urgent care, hospital, or residential...) When possible be specific @ -[No] Did you speak to anyone other than the patient for history (EMS, parent, family, police, friend...)? What history was obtained from this source @ -[No] Did you review nursing and triage notes (agree or disagree)? Why? @ -[I reviewed and agree with nursing and triage notes] Were old charts reviewed (outside hosp., previous admission, EMS record, old EKG, old radiological studies, urgent care reports/EKG's, residential records)? Report findings @ -[No old charts were reviewed] Differential Diagnosis (chest pain, altered mental status, abdominal pain women, abdominal pain men, vaginal bleeding, weakness, fever, dyspnea, syncope, headache, dizziness, GI bleed, back pain, seizure, CVA, palpatations, mental health, musculoskeletal)? @ -[not applicable] EKG interpreted by me (3pts min.). @ -[As above] X-rays interpreted by me (1pt min.). @ -[None done] CT interpreted by me (1pt min.). @ -[None done] U/S interpreted by me (1pt. min.). @ -[None done] What testing was considered but not performed or refused? (CT, X-rays, U/S, labs)? Why? @ -[None] What meds were considered but not given or refused? Why? @ -[None] Did you discuss the management of the patient with other professionals (p [employer] i.e. , JESIKA, QUALITY CONTROL ANALYST, lab, RT, psych nurse, social sciences department chair, customer account administrator, teacher, geological technical officer, case worker)? Give summary @ -[No] Was smoking cessation discussed for >3mins.? @ -[No] Was critical care preformed (if so, how long)? @ -[No] Were there social determinants of health that impacted care today? How? (Homelessness, low income, unemployed, alcoholism, drug addiction, tr ansportation, low edu. Level, literacy, decrease access to med. care, retirement, rehab)? @ -[No] Was there de-escalation of care discussed even if they declined (Discuss DNR or withdrawal of care, Hospice)? DNR status @ -[No] What co-morbidities impacted this encounter? (DM, HTN, Smoking, COPD, CAD, Cancer, CVA, ARF, Chemo, Hep., AIDS, mental health diagnosis, sleep apnea, morbid obesity)? @ -[None] Was patient admitted / discharged? Hospital course, mention meds given and route, prescriptions, significant lab abnormalities, going to OR and other pertinent info. @ -Admission. This is a 77-year-old male who presents to the emergency department with abdominal pain. Patient had a thorough history and physical exam performed on the ED. Physical exam reveals generalized abdominal tenderness. Patient lab work and imaging performed performed which revealed: WBC 6.6, hemoglobin 11.7 coagulation unremarkable sodium 133, potassium 5.1 BUN 27, creatinine 1.58, Initial troponin 0.150, 0.153 CT reveals moderate left and right pleural effusions that are new in appearance bladder wall thickening minimal free fluid in the posterior pelvis and cholecystectomy and Biliary Dilated I discussed the results in detail with the patient verbalized understanding and all questions were addressed. He was given Toradol and morphine with mild symptomatically relief in the emergency department. He is agreeable with the plan for admission for further observation. Case discussed with VÍCTOR Lares who agrees with plan of care Undiagnosed new problem with uncertain prognosis? @ -[No] Drug Therapy requiring intensive monitoring for toxicity (Heparin, Nitro, Insulin, Cardizem)? @ -[No] Were any procedures done? @ -[No] Diagnosis/symptom? @ -Intractable abdominal pain - Intractable nausea and vomiting - Acute kidney injury Acute, or Chronic, or Acute on Chronic? @ -Acute Uncomplicated (without systemic symptoms) or Complicated (systemic symptoms)? @ -Uncomplicated Side effects of treatment? @ -[No] Exacerbation, Progression, or Severe Exacerbation? @ -[No] Poses a threat to life or bodily function? How? (Chest pain, USA, NV, pneumonia, PE, COPD, DKA, ARF, appy, cholecystitis, CVA, Diverticulitis, Homicidal, Suicidal, threat to staff... and all critical care pts) @ -R likelihood (Di Flor) - Lab Data Lab Results 11/30/22 11/30/22 11/30/22 Range/Units 00:52 00:52 00:52 WBC 6.6 (3.8-10.6) k/uL RBC 3.98 L (4.30-5.90) m/uL Hgb 11.7 L (13.0-17.5) gm/dL Hct 36.3 L (39.0-53.0) % MCV 91.4 (80.0-100.0) fL MCH 29.4 (25.0-35.0) pg MCHC 32.2 (31.0-37.0) g/dL RDW 15.6 H (11.5-15.5) % Plt Count 258 (150-450) k/uL MPV 9.3 Neutrophils % 73 % Lymphocytes % 14 % Monocytes % 10 % Eosinophils % 0 % Basophils % 0 % Neutrophils # 4.8 (1.3-7.7) k/uL Lymphocytes # 1.0 (1.0-4.8) k/uL Monocytes # 0.7 (0-1.0) k/uL Eosinophils # 0.0 (0-0.7) k/uL Basophils # 0.0 (0-0.2) k/uL Hypochromasia Moderate PT 12.0 (9.0-12.0) sec INR 1.2 H (<1.2) APTT 24.3 (22.0-30.0) sec Sodium 133 L (137-145) mmol/L Potassium 5.1 (3.5-5.1) mmol/L Chloride 104 (98-107) mmol/L Carbon Dioxide 16 L (22-30) mmol/L Anion Gap 13 mmol/L BUN 27 H (9-20) mg/dL Creatinine 1.58 H (0.66-1.25) mg/dL Est GFR (CKD-EPI)AfAm 48 (>60 ml/min/1.73 sqM) Est GFR (CKD-EPI)NonAf 41 (>60 ml/min/1.73 sqM) Glucose 106 H (74-99) mg/dL POC Glucose (mg/dL) (70-110) mg/dL POC Glu Livestock Trucker ID Calcium 9.1 (8.4-10.2) mg/dL Total Bilirubin 0.9 (0.2-1.3) mg/dL AST 28 (17-59) U/L ALT 17 (4-49) U/L Alkaline Phosphatase 99 (38-126) U/L Troponin I (0.000-0.034) ng/mL Total Protein 6.3 (6.3-8.2) g/dL Albumin 3.4 L (3.5-5.0) g/dL Globulin g/dL Albumin/Globulin Ratio Amylase 41 (30-110) U/L Lipase 31 (23-300) U/L Urine Color Urine Appearance (Clear) Urine pH (5.0-8.0) Ur Specific [place] (1.001-1.035) Urine Protein (Negative) Urine Glucose (UA) (Negative) Urine Ketones (Negative) Urine Blood (Negative) Urine Nitrite (Negative) Urine Bilirubin (Negative) Urine Urobilinogen (<2.0) mg/dL Ur Leukocyte Esterase (Negative) Urine RBC (0-5) /hpf Urine WBC (0-5) /hpf Calcium Oxalate Crystal (None) /hpf Amorphous Sediment (None) /hpf Hyaline Casts (0-2) /lpf Urine Mucus (None) /hpf 11/30/22 11/30/22 12/01/22 Range/Units 00:52 04:15 02:42 WBC (3.8-10.6) k/uL RBC (4.30-5.90) m/uL Hgb (13.0-17.5) gm/dL Hct (39.0-53.0) % MCV (80.0-100.0) fL MCH (25.0-35.0) pg MCHC (31.0-37.0) g/dL RDW (11.5-15.5) % Plt Count (150-450) k/uL MPV Neutrophils % % Lymphocytes % % Monocytes % % Eosinophils % % Basophils % % Neutrophils # (1.3-7.7) k/uL Lymphocytes # (1.0-4.8) k/uL Monocytes # (0-1.0) k/uL Eosinophils # (0-0.7) k/uL Basophils # (0-0.2) k/uL Hypochromasia PT (9.0-12.0) sec INR (<1.2) APTT (22.0-30.0) sec Sodium (137-145) mmol/L Potassium (3.5-5.1) mmol/L Chloride (98-107) mmol/L Carbon Dioxide (22-30) mmol/L Anion Gap mmol/L BUN (9-20) mg/dL Creatinine (0.66-1.25) mg/dL Est GFR (CKD-EPI)AfAm (>60 ml/min/1.73 sqM) Est GFR (CKD-EPI)NonAf (>60 ml/min/1.73 sqM) Glucose (74-99) mg/dL POC Glucose (mg/dL) (70-110) mg/dL POC Glu Livestock Trucker ID Calcium (8.4-10.2) mg/dL Total Bilirubin (0.2-1.3) mg/dL AST (17-59) U/L ALT (4-49) U/L Alkaline Phosphatase (38-126) U/L Troponin I 0.150 H* 0.153 H* (0.000-0.034) ng/mL Total Protein (6.3-8.2) g/dL Albumin (3.5-5.0) g/dL Globulin g/dL Albumin/Globulin Ratio Amylase (30-110) U/L Lipase (23-300) U/L Urine Color Yellow Urine Appearance Clear (Clear) Urine pH 5.5 (5.0-8.0) Ur Specific [place] 1.031 (1.001-1.035) Urine Protein 2+ H (Negative) Urine Glucose (UA) 3+ H (Negative) Urine Ketones 1+ H (Negative) Urine Blood Negative (Negative) Urine Nitrite Negative (Negative) Urine Bilirubin Negative (Negative) Urine Urobilinogen 2.0 (<2.0) mg/dL Ur Leukocyte Esterase Negative (Negative) Urine RBC 2 (0-5) /hpf Urine WBC 4 (0-5) /hpf Calcium Oxalate Crystal Moderate H (None) /hpf Amorphous Sediment Rare H (None) /hpf Hyaline Casts 197 H (0-2) /lpf Urine Mucus Occasional H (None) /hpf 12/01/22 12/01/22 12/01/22 Range/Units 09:31 11:34 11:34 WBC 7.3 (3.8-10.6) k/uL RBC 3.94 L (4.30-5.90) m/uL Hgb 11.5 L (13.0-17.5) gm/dL Hct 36.9 L (39.0-53.0) % MCV 93.6 (80.0-100.0) fL MCH 29.3 (25.0-35.0) pg MCHC 31.2 (31.0-37.0) g/dL RDW 15.4 (11.5-15.5) % Plt Count 252 (150-450) k/uL MPV 8.9 Neutrophils % % Lymphocytes % % Monocytes % % Eosinophils % % Basophils % % Neutrophils # (1.3-7.7) k/uL Lymphocytes # (1.0-4.8) k/uL Monocytes # (0-1.0) k/uL Eosinophils # (0-0.7) k/uL Basophils # (0-0.2) k/uL Hypochromasia Marked PT (9.0-12.0) sec INR (<1.2) APTT (22.0-30.0) sec Sodium (137-145) mmol/L Potassium (3.5-5.1) mmol/L Chloride (98-107) mmol/L Carbon Dioxide (22-30) mmol/L Anion Gap mmol/L BUN (9-20) mg/dL Creatinine (0.66-1.25) mg/dL Est GFR (CKD-EPI)AfAm (>60 ml/min/1.73 sqM) Est GFR (CKD-EPI)NonAf (>60 ml/min/1.73 sqM) Glucose (74-99) mg/dL POC Glucose (mg/dL) (70-110) mg/dL POC Glu Livestock Trucker ID Calcium (8.4-10.2) mg/dL Total Bilirubin (0.2-1.3) mg/dL AST (17-59) U/L ALT (4-49) U/L Alkaline Phosphatase (38-126) U/L Troponin I 0.154 H* 0.154 H* (0.000-0.034) ng/mL Total Protein (6.3-8.2) g/dL Albumin (3.5-5.0) g/dL Globulin g/dL Albumin/Globulin Ratio Amylase (30-110) U/L Lipase (23-300) U/L Urine Color Urine Appearance (Clear) Urine pH (5.0-8.0) Ur Specific [place] (1.001-1.035) Urine Protein (Negative) Urine Glucose (UA) (Negative) Urine Ketones (Negative) Urine Blood (Negative) Urine Nitrite (Negative) Urine Bilirubin (Negative) Urine Urobilinogen (<2.0) mg/dL Ur Leukocyte Esterase (Negative) Urine RBC (0-5) /hpf Urine WBC (0-5) /hpf Calcium Oxalate Crystal (None) /hpf Amorphous Sediment (None) /hpf Hyaline Casts (0-2) /lpf Urine Mucus (None) /hpf 12/01/22 12/02/22 12/02/22 Range/Units 11:34 10:40 11:31 WBC (3.8-10.6) k/uL RBC (4.30-5.90) m/uL Hgb (13.0-17.5) gm/dL Hct (39.0-53.0) % MCV (80.0-100.0) fL MCH (25.0-35.0) pg MCHC (31.0-37.0) g/dL RDW (11.5-15.5) % Plt Count (150-450) k/uL MPV Neutrophils % % Lymphocytes % % Monocytes % % Eosinophils % % Basophils % % Neutrophils # (1.3-7.7) k/uL Lymphocytes # (1.0-4.8) k/uL Monocytes # (0-1.0) k/uL Eosinophils # (0-0.7) k/uL Basophils # (0-0.2) k/uL Hypochromasia PT (9.0-12.0) sec INR (<1.2) APTT (22.0-30.0) sec Sodium 133 L (137-145) mmol/L Potassium 5.4 H (3.5-5.1) mmol/L Chloride 105 (98-107) mmol/L Carbon Dioxide 17 L (22-30) mmol/L Anion Gap 11 mmol/L BUN 32 H (9-20) mg/dL Creatinine 1.64 H (0.66-1.25) mg/dL Est GFR (CKD-EPI)AfAm 46 (>60 ml/min/1.73 sqM) Est GFR (CKD-EPI)NonAf 40 (>60 ml/min/1.73 sqM) Glucose 127 H (74-99) mg/dL POC Glucose (mg/dL) 135 H 132 H (70-110) mg/dL POC Glu Livestock Trucker ID Mary Galo Grace Calcium 8.7 (8.4-10.2) mg/dL Total Bilirubin 1.0 (0.2-1.3) mg/dL AST 38 (17-59) U/L ALT 19 (4-49) U/L Alkaline Phosphatase 80 (38-126) U/L Troponin I (0.000-0.034) ng/mL Total Protein 6.4 (6.3-8.2) g/dL Albumin 3.5 (3.5-5.0) g/dL Globulin 2.9 g/dL Albumin/Globulin Ratio 1.2 Amylase (30-110) U/L Lipase (23-300) U/L Urine Color Urine Appearance (Clear) Urine pH (5.0-8.0) Ur Specific [place] (1.001-1.035) Urine Protein (Negative) Urine Glucose (UA) (Negative) Urine Ketones (Negative) Urine Blood (Negative) Urine Nitrite (Negative) Urine Bilirubin (Negative) Urine Urobilinogen (<2.0) mg/dL Ur Leukocyte Esterase (Negative) Urine RBC (0-5) /hpf Urine WBC (0-5) /hpf Calcium Oxalate Crystal (None) /hpf Amorphous Sediment (None) /hpf Hyaline Casts (0-2) /lpf Urine Mucus (None) /hpf 12/02/ Range/Units 11:50 WBC (3.8-10.6) k/uL RBC (4.30-5.90) m/uL Hgb (13.0-17.5) gm/dL Hct (39.0-53.0) % MCV (80.0-100.0) fL MCH (25.0-35.0) pg MCHC (31.0-37.0) g/dL RDW (11.5-15.5) % Plt Count (150-450) k/uL MPV Neutrophils % % Lymphocytes % % Monocytes % % Eosinophils % % Basophils % % Neutrophils # (1.3-7.7) k/uL Lymphocytes # (1.0-4.8) k/uL Monocytes # (0-1.0) k/uL Eosinophils # (0-0.7) k/uL Basophils # (0-0.2) k/uL Hypochromasia PT (9.0-12.0) sec INR (<1.2) APTT (22.0-30.0) sec Sodium 134 L (137-145) mmol/L Potassium 6.7 H* (3.5-5.1) mmol/L Chloride 107 (98-107) mmol/L Carbon Dioxide 15 L (22-30) mmol/L Anion Gap 12 mmol/L BUN 40 H (9-20) mg/dL Creatinine 1.85 H (0.66-1.25) mg/dL Est GFR (CKD-EPI)AfAm 40 (>60 ml/min/1.73 sqM) Est GFR (CKD-EPI)NonAf 34 (>60 ml/min/1.73 sqM) Glucose 127 H (74-99) mg/dL POC Glucose (mg/dL) (70-110) mg/dL POC Glu Livestock Trucker ID Calcium 8.3 L (8.4-10.2) mg/dL Total Bilirubin 1.3 (0.2-1.3) mg/dL AST 125 H (17-59) U/L ALT 46 (4-49) U/L Alkaline Phosphatase 150 H (38-126) U/L Troponin I (0.000-0.034) ng/mL Total Protein 5.9 L (6.3-8.2) g/dL Albumin 3.2 L (3.5-5.0) g/dL Globulin 2.7 g/dL Albumin/Globulin Ratio 1.2 Amylase (30-110) U/L Lipase (23-300) U/L Urine Color Urine Appearance (Clear) Urine pH (5.0-8.0) Ur Specific [place] (1.001-1.035) Urine Protein (Negative) Urine Glucose (UA) (Negative) Urine Ketones (Negative) Urine Blood (Negative) Urine Nitrite (Negative) Urine Bilirubin (Negative) Urine Urobilinogen (<2.0) mg/dL Ur Leukocyte Esterase (Negative) Urine RBC (0-5) /hpf Urine WBC (0-5) /hpf Calcium Oxalate Crystal (None) /hpf Amorphous Sediment (None) /hpf Hyaline Casts (0-2) /lpf Urine Mucus (None) /hpf Disposition Is patient prescribed a controlled substance at d/c from ED?: No Time of Disposition: 04:07 <Di Flor - Last Filed: 12/01/22 21:36> <Monique Finch - Last Filed: 12/07/22 22:54> Clinical Impression: Abdominal pain, Nausea & vomiting, Acute kidney injury Disposition: ADMITTED IP TO THIS HOSP Condition: Fair
[2022-12-01] MEDS ORDERED: KETOROLAC 15 MG/ML 1 ML VIAL IM STA (00:57)
[2022-12-01] MEDS ORDERED: MORPHINE SULFATE 4 MG/ML SYRINGE IVP STA (00:58)
[2022-12-01 01:17] LABS: ALT 17 U/L (4-49); AST 28 U/L (17-59); African American GFR (CKD) 48 (>60 ml/min/1.73 sqM); Albumin 3.4 g/dL (3.5-5.0); Alkaline Phosphatase 99 U/L (38-126); Amylase 41 U/L (30-110); Anion Gap 13 mmol/L; Blood Urea Nitrogen 27 mg/dL (9-20); Calcium 9.1 mg/dL (8.4-10.2); Carbon Dioxide 16 mmol/L (22-30); Chloride 104 mmol/L (98-107); Glucose 106 mg/dL (74-99); Lipase 31 U/L (23-300); Non-African American GFR(CKD) 41 (>60 ml/min/1.73 sqM); Potassium 5.1 mmol/L (3.5-5.1); Sodium 133 mmol/L (137-145); Total Bilirubin 0.9 mg/dL (0.2-1.3); Total Protein 6.3 g/dL (6.3-8.2)
[2022-12-01 01:30] LABS: Basophils % (A) 0 %; Eosinophils % (A) 0 %; HCT 36.3 % (39.0-53.0); HGB 11.7 gm/dL (13.0-17.5); Hypochromasia Moderate; Lymphocytes % (A) 14 %; MCH 29.4 pg (25.0-35.0); MCHC 32.2 g/dL (31.0-37.0); MCV 91.4 fL (80.0-100.0); Mean Platelet Volume 9.3; Monocytes # (A) 0.7 k/uL (0-1.0); Monocytes % (A) 10 %; Neutrophils # (A) 4.8 k/uL (1.3-7.7); Neutrophils % (A) 73 %; Platelet Count 258 k/uL (150-450); RBC 3.98 m/uL (4.30-5.90); RDW 15.6 % (11.5-15.5); WBC 6.6 k/uL (3.8-10.6)
[2022-12-01] MEDS ORDERED: methylPREDNISolone SOD SUCCI 125 MG/2 ML VIAL IV STA (01:31)
[2022-12-01] MEDS ORDERED: diphenhydrAMINE 50 MG/ML 1 ML VIAL IVP STA (01:31)
[2022-12-01 02:11] LABS: INR 1.2 (<1.2); Partial Thromboplastin Time 24.3 sec (22.0-30.0)
--- NOTE | 2022-12-01 02:48 | CT ---
EXAM: CT Abdomen and Pelvis Without Intravenous Contrast CLINICAL HISTORY: ITS.REASON CT Reason: abdominal pain TECHNIQUE: Axial computed tomography images of the abdomen and pelvis without intravenous contrast. CTDI is 6.7 mGy and DLP is 417.5 mGy-cm. This CT exam was performed using one or more of the following dose reduction techniques: automated exposure control, adjustment of the mA and/or kV according to patient size, and/or use of iterative reconstruction technique. COMPARISON: CT Abdomen Pelvis dated 08/11/21 FINDINGS: Lung bases: See below. Pleural space: Moderate left and small right pleural effusions, new appearance. Left lower lobe atelectasis. Heart: Cardiomegaly. Coronary calcifications. Sternotomy wires. Pacemaker leads. ABDOMEN: Liver: Unremarkable. Gallbladder and bile ducts: Cholecystectomy and central biliary dilation, stable. Pancreas: Unremarkable. No ductal dilation. Spleen: Unremarkable. No splenomegaly. Adrenals: Unremarkable. No mass. Kidneys and ureters: Bilateral renal low-density lesions/cysts. Similar to the prior no hydronephrosis. Atrophic right kidney. Stomach and bowel: Unremarkable. No obstruction. No mucosal thickening. PELVIS: Appendix: Appendix not visualized. No secondary findings of appendicitis. Bladder: Bladder wall thickening versus partial distention. No stones. Reproductive: Prostate calcifications. ABDOMEN and PELVIS: Intraperitoneal space: Minimal free fluid in the posterior pelvis/presacral edema. Nonspecific. No free air. Bones/joints: No acute fracture. No dislocation. Soft tissues: Bilateral inguinal hernia repair. Vasculature: Partially visualized aneurysmal ascending aorta 4.6 cm. Stable tortuous and mildly ectatic thoracoabdominal aorta. Aortoiliac atherosclerotic calcifications. Marked aortoiliac vascular calcifications. Lymph nodes: Unremarkable. No enlarged lymph nodes. IMPRESSION: 1. Moderate left and small right pleural effusions, new appearance. Left lower lobe atelectasis. 2. Partially visualized aneurysmal ascending aorta 4.6 cm. 3. Bladder wall thickening versus partial distention. Correlate for cystitis. 4. Minimal free fluid in the posterior pelvis/presacral edema. Nonspecific. 5. Cholecystectomy and central biliary dilation, stable.
[2022-12-01] MEDS ORDERED: NALOXONE 0.4 MG/ML 1 ML VIAL IV PRN (04:06)
[2022-12-01] MEDS ORDERED: ONDANSETRON 4 MG/2 ML VIAL IVP PRN (04:06)
[2022-12-01 04:53] LABS: Amorphous Sediment,Urine Rare /hpf; Appearance,Urine Clear (Clear); Bilirubin,Urine Negative (Negative); Blood,Urine Negative (Negative); Calcium Oxalate Crystals,Urine Moderate /hpf; Color,Urine Yellow; Glucose,Urine (UA) 3+ (Negative); Hyaline Casts,Urine 197 /lpf (0-2); Ketones,Urine 1+ (Negative); Leukocyte Esterase,Urine Negative (Negative); Mucus,Urine Occasional /hpf; Nitrite,Urine Negative (Negative); PH, Urine 5.5 (5.0-8.0); Protein,Urine 2+ (Negative); RBC,Urine 2 /hpf (0-5); Specific Gravity,Urine 1.031 (1.001-1.035); WBC,Urine 4 /hpf (0-5)
[2022-12-01] MEDS: MORPHINE SULFATE 4 MG/ML SYRINGE IV PRN ×3 (05:22→14:24)
--- NOTE | 2022-12-01 11:34 | P.GSCN ---
History of Present Illness Consult date: 12/01/22 Reason for Consult: Ascending aortic aneurysm Requesting physician: Kurt Estrella History of present illness: This is a pleasant 77-year-old male with past medical history including COPD, hyperlipidemia, hypertension, [place], anemia, [place], sleep apnea with BiPAP, coronary artery disease status post AICD, CABG and cardiac stents, frequent kidney stones and chronic low back pain who presented to the emergency department with co mplaints of lower abdominal pain and back pain. Patient states he was having abdominal pain radiating into his back this is all in the lower part of his abdomen and back. Denied any associated nausea or vomiting. No fever but states he has had chills. Also some shortness of breath. He does wear oxygen at home as needed. He was noted to have elevated troponins on admission. Currently on aspirin and Plavix. He had a CT of the abdomen and pelvis with contrast that reported ascending aortic aneurysm measuring 4.6 cm. Vascular surgery was consulted for the above. Patient states on he has a known abdominal aortic aneurysm and that he follows with Dr. 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 Most recent imaging available at this time is a CT angiogram of chest dated 10/24/2019 reported ascending aortic aneurysm measuring 5.0 x 4.9 cm mild aneurysmal dilation of the proximal abdominal aorta measuring 3.3 cm. He currently denies any chest pain or upper abdominal pain. He states he has some shortness of breath and currently 2 L nasal cannula with oxygen saturation 99%. Blood pressure 151/87 heart rate 108, respiratory rate 14 WBC 6.6 hemoglobin 11.7 platelet count 258,000, INR 1.2 sodium 133 potassium 5.1 BUN 27 creatinine 1.5, glucose 106. Troponins 0.150, 0.153, 0.154. Patient does take daily 81 mg aspirin and Plavix 75 mg daily Review of Systems A 14 point review systems was completed all pertinent positives and negatives as stated in the HPI. Past Medical History Past Medical History: Coronary Artery Disease (CAD), Chest Pain / Angina, COPD, Hyperlipidemia, Hypertension, Myocardial Infarction ([place]), Musculoskeletal Disorder, Osteoarthritis (OA), Prostate Disorder, Sleep Apnea/CPAP/BIPAP Additional Past Medical History / Comment(s): HH, fibromyalgia, anemia, hypogonadism, vtach, NSTEMI 10/20/19, CPAP use, Inogen portable. Kidney stones; left flank pain, chronic toni shoulder pain, states has numbness rt arm, recent adm. for chest pain, difficulty swallowing & weight loss Last Myocardial Infarction Date:: 10/20/19 History of Any Multi-Drug Resistant Organisms: None Reported Past Surgical History: Adenoidectomy, AICD, Back Surgery, Cholecystectomy, Coronary Bypass/CABG, Heart Catheterization, Hernia Repair, Orthopedic Surgery, Tonsillectomy Additional Past Surgical History / Comment(s): CABG x3 in 1999, rhinoplasty, ACDF 2, left bunionectomy, Lasik, lipoma from left shoulder 2, colonoscopy 5 years ago, hernia repair. pacer Past Anesthesia/Blood Transfusion Reactions: No Reported Reaction Type of Cardiac Device: AICD Device Placement Date:: 12/12/19 Past Psychological History: No Psychological Hx Reported Smoking Status: Former smoker Past Alcohol Use History: None Reported Past Drug Use History: Marijuana - Past Family History Mother Family Medical History: Cancer, Coronary Artery Disease (CAD) Father Family Medical History: Cancer Brother(s) Family Medical History: Congestive Heart Failure (CHF), Coronary Artery Disease (CAD) Sister(s) Family Medical History: Congestive Heart Failure (CHF) Medications and Allergies Home Medications Medication Instructions Recorded Confirmed Type Aspirin 81 mg PO DAILY chew 10/26/19 12/01/22 Rx Clopidogrel [Plavix] 75 mg PO DAILY #30 tab 10/26/19 12/01/22 Rx Vit C/E/Zn/Coppr/Lutein/Zeaxan 1 cap PO BID 12/08/19 12/01/22 History [Preservision Areds 2 Softgel] Atorvastatin [Lipitor] 80 mg PO HS 08/10/21 12/01/22 History DULoxetine HCL [Cymbalta] 60 mg PO DAILY 08/10/21 12/01/22 History Potassium Citrate [Urocit-K] 10 meq PO BID 08/10/21 12/01/22 History Lidocaine 5% Patch [Lidoderm 5% 1 patch TRANSDERM DAILY 06/13/22 12/01/22 History Patch] Multivitamins, Thera [Multivitamin 1 tab PO DAILY 06/13/22 12/01/22 History (formulary)] Sotalol [Betapace] 80 mg PO BID 06/13/22 12/01/22 History oxyCODONE-APAP 10-325MG [Percocet 1 tab PO Q4HR PRN MDD 5 tabs 06/13/22 12/01/22 History 10-325 mg] Cholecalciferol [Vitamin D3 (25 50 mcg PO DAILY 30 Days #30 tab 06/19/22 12/01/22 Rx Mcg = 1000 Iu)] ALPRAZolam [Xanax] 0.5 mg PO BID PRN 09/20/22 12/01/22 History Ascorbic Acid [Vitamin C] 500 mg PO DAILY 09/20/22 12/01/22 History Furosemide [Lasix] 40 mg PO Q12HR #60 tab 09/24/22 12/01/22 Rx carvediloL [Coreg] 3.125 mg PO BID-W/MEALS #60 tab 09/24/22 12/01/22 Rx Sacubitril/Valsartan [Entresto 24 1 tab PO BID 11/13/22 12/01/22 History mg-26 mg Tablet] Dapagliflozin Propanediol [Farxiga] 10 mg PO DAILY #30 tablet 11/14/22 12/01/22 Rx Nitroglycerin Sl Tabs [Nitrostat] 0.4 mg SL Q5M PRN 12/01/22 12/01/22 History Allergies Allergy/AdvReac Type Severity Reaction Status Date / Time Iodinated Contrast Media Allergy Rash/Hives Verified 12/01/22 08:42 Surgical - Exam Vital Signs Temp Pulse Resp BP Pulse Ox 98.1 F 86 20 135/86 100 11/30/22 22:33 11/30/22 22:33 11/30/22 22:33 11/30/22 22:33 11/30/22 22:33 General appearance: The patient is alert, oriented, appears in no acute distress. HET: Head is normocephalic and atraumatic. Pupils are equal and reactive. Neck: Supple. Heart: Regular. Lungs: Equal expansion, normal respiratory effort. Abdomen: Soft, nontender, nondistended. Extremities: Normal skin color and turgor. Neurological: No focal deficits. Strength and sensation are grossly intact. Results - Labs 12/01/22 11:34 12/01/22 11:34 Abnormal Lab Results - Last 24 Hours (Table) 11/30/22 11/30/22 11/30/22 Range/Units 00:52 00:52 00:52 RBC 3.98 L (4.30-5.90) m/uL Hgb 11.7 L (13.0-17.5) gm/dL Hct 36.3 L (39.0-53.0) % RDW 15.6 H (11.5-15.5) % INR 1.2 H (<1.2) Sodium 133 L (137-145) mmol/L Carbon Dioxide 16 L (22-30) mmol/L BUN 27 H (9-20) mg/dL Creatinine 1.58 H (0.66-1.25) mg/dL Glucose 106 H (74-99) mg/dL Troponin I (0.000-0.034) ng/mL Albumin 3.4 L (3.5-5.0) g/dL Urine Protein (Negative) Urine Glucose (UA) (Negative) Urine Ketones (Negative) Calcium Oxalate Crystal (None) /hpf Amorphous Sediment (None) /hpf Hyaline Casts (0-2) /lpf Urine Mucus (None) /hpf 11/30/22 11/30/22 12/01/22 Range/Units 00:52 04:15 02:42 RBC (4.30-5.90) m/uL Hgb (13.0-17.5) gm/dL Hct (39.0-53.0) % RDW (11.5-15.5) % INR (<1.2) Sodium (137-145) mmol/L Carbon Dioxide (22-30) mmol/L BUN (9-20) mg/dL Creatinine (0.66-1.25) mg/dL Glucose (74-99) mg/dL Troponin I 0.150 H* 0.153 H* (0.000-0.034) ng/mL Albumin (3.5-5.0) g/dL Urine Protein 2+ H (Negative) Urine Glucose (UA) 3+ H (Negative) Urine Ketones 1+ H (Negative) Calcium Oxalate Crystal Moderate H (None) /hpf Amorphous Sediment Rare H (None) /hpf Hyaline Casts 197 H (0-2) /lpf Urine Mucus Occasional H (None) /hpf 12/01/22 Range/Units 09:31 RBC (4.30-5.90) m/uL Hgb (13.0-17.5) gm/dL Hct (39.0-53.0) % RDW (11.5-15.5) % INR (<1.2) Sodium (137-145) mmol/L Carbon Dioxide (22-30) mmol/L BUN (9-20) mg/dL Creatinine (0.66-1.25) mg/dL Glucose (74-99) mg/dL Troponin I 0.154 H* (0.000-0.034) ng/mL Albumin (3.5-5.0) g/dL Urine Protein (Negative) Urine Glucose (UA) (Negative) Urine Ketones (Negative) Calcium Oxalate Crystal (None) /hpf Amorphous Sediment (None) /hpf Hyaline Casts (0-2) /lpf Urine Mucus (None) /hpf Diabetes panel 11/30/22 Range/Units 00:52 Sodium 133 L (137-145) mmol/L Potassium 5.1 (3.5-5.1) mmol/L Chloride 104 (98-107) mmol/L Carbon Dioxide 16 L (22-30) mmol/L BUN 27 H (9-20) mg/dL Creatinine 1.58 H (0.66-1.25) mg/dL Glucose 106 H (74-99) mg/dL Calcium 9.1 (8.4-10.2) mg/dL AST 28 (17-59) U/L ALT 17 (4-49) U/L Alkaline Phosphatase 99 (38-126) U/L Total Protein 6.3 (6.3-8.2) g/dL Albumin 3.4 L (3.5-5.0) g/dL Calcium panel 11/30/22 Range/Units 00:52 Calcium 9.1 (8.4-10.2) mg/dL Albumin 3.4 L (3.5-5.0) g/dL Pituitary panel 11/30/22 Range/Units 00:52 Sodium 133 L (137-145) mmol/L Potassium 5.1 (3.5-5.1) mmol/L Chloride 104 (98-107) mmol/L Carbon Dioxide 16 L (22-30) mmol/L BUN 27 H (9-20) mg/dL Creatinine 1.58 H (0.66-1.25) mg/dL Glucose 106 H (74-99) mg/dL Calcium 9.1 (8.4-10.2) mg/dL Adrenal panel 11/30/22 Range/Units 00:52 Sodium 133 L (137-145) mmol/L Potassium 5.1 (3.5-5.1) mmol/L Chloride 104 (98-107) mmol/L Carbon Dioxide 16 L (22-30) mmol/L BUN 27 H (9-20) mg/dL Creatinine 1.58 H (0.66-1.25) mg/dL Glucose 106 H (74-99) mg/dL Calcium 9.1 (8.4-10.2) mg/dL Total Bilirubin 0.9 (0.2-1.3) mg/dL AST 28 (17-59) U/L ALT 17 (4-49) U/L Alkaline Phosphatase 99 (38-126) U/L Total Protein 6.3 (6.3-8.2) g/dL Albumin 3.4 L (3.5-5.0) g/dL Assessment and Plan Assessment: 1. Abdominal pain 2. Low back pain 3. Ascending aortic aneurysm 4.6 cm 4. Elevated troponins 5. Coronary artery disease status post CABG, stent, AICD 6. COPD 7. Hyperlipidemia and hypertension 8. History of frequent kidney stones 9. Chronic low back pain Plan: 1. Continue symptomatic and supportive care 2. Continue with recommendations from cardiology 3. Patient needs to follow-up with his glass forming engineer and/or cardiothoracic surgery to continue to monitor ascending aortic aneurysm. No indication for any vascular surgical intervention. 4. Medical management deferred to primary medical team Thank you for this consultation, we will sign off at this time. The impression and plan of care has been dictated as directed. Dr. Wagner I performed a history and examination of this patient, discussed the same with the dictator. I agree with the dictator's note ,documented as a scribe. Any additional findings or plans will be noted.
[2022-12-01 11:50] LABS: HCT 36.9 % (39.0-53.0); HGB 11.5 gm/dL (13.0-17.5); Hypochromasia Marked; MCH 29.3 pg (25.0-35.0); MCHC 31.2 g/dL (31.0-37.0); MCV 93.6 fL (80.0-100.0); Mean Platelet Volume 8.9; Platelet Count 252 k/uL (150-450); RBC 3.94 m/uL (4.30-5.90); RDW 15.4 % (11.5-15.5); WBC 7.3 k/uL (3.8-10.6)
[2022-12-01 12:07] LABS: ALT 19 U/L (4-49); African American GFR (CKD) 46 (>60 ml/min/1.73 sqM); Albumin 3.5 g/dL (3.5-5.0); Albumin/Globulin Ratio 1.2; Anion Gap 11 mmol/L; Blood Urea Nitrogen 32 mg/dL (9-20); Calcium 8.7 mg/dL (8.4-10.2); Carbon Dioxide 17 mmol/L (22-30); Chloride 105 mmol/L (98-107); Globulin 2.9 g/dL; Glucose 127 mg/dL (74-99); Non-African American GFR(CKD) 40 (>60 ml/min/1.73 sqM); Sodium 133 mmol/L (137-145); Total Protein 6.4 g/dL (6.3-8.2)
[2022-12-01 12:13] LABS: AST 38 U/L (17-59); Alkaline Phosphatase 80 U/L (38-126); Potassium 5.4 mmol/L (3.5-5.1)
--- NOTE | 2022-12-01 12:20 | P.HPIM ---
History of Present Illness H&P Date: 12/01/22 History of present illness;The patient is a 77-year-old male with a known history of severe ischemic cardiac myopathy, status post ICD implantation, status post CABG and PCI, he underwent PCI of the left main and circumflex in [place] [address] Chisholm with mechanical support. He has a patent WHITE to the LAD and patent radial to the right PDA was occluded SVG to the PLV who presented to the hospital because of abdominal pain and nausea and vomiting. Patient stated that he has been having abdominal pain for last couple of days, pain is located in the upper part of the abdomen and is going to his back. Denies any chest pain. Does complain of worsening shortness of breath. Because of the abdominal pain patient came to the ER Initial lab work in the ER showed WBC 6.6, hemoglobin 11.7, platelet count 258, sodium 133, potassium 5.1, BUN 27, creatinine 1.58 CT Abdomen pelvis showed moderate left and small right pleural effusions, left lower lobe atelectasis, partially visualized aneurysmal aorta of 4.6 cm Patient was admitted to medicine service for further evaluation and treatment REVIEW OF SYSTEMS: CONSTITUTIONAL: No fever, no malaise, no fatigue. HEENT: No recent visual problems or hearing problems. Denied any sore throat. CARDIOVASCULAR: No chest pain, orthopnea, PND, no palpitations, no syncope. PULMONARY: no cough, no hemoptysis. GASTROINTESTINAL: As mentioned in HPI NEUROLOGICAL: No headaches, no weakness, no numbness. HEMATOLOGICAL: Denies any bleeding or petechiae. GENITOURINARY: Denies any burning micturition, frequency, or urgency. MUSCULOSKELETAL/RHEUMATOLOGICAL: Denies any joint pain, swelling, or any muscle pain. ENDOCRINE: Denies any polyuria or polydipsia. The rest of the 14-point review of systems is negative. PHYSICAL EXAMINATION: GENERAL: The patient is alert and oriented x3, not in any acute distress. Well developed, well nourished. HEENT: Pupils are round and equally reacting to light. EOMI. No scleral icterus. No conjunctival pallor. Normocephalic, atraumatic. No pharyngeal erythema. No thyromegaly. CARDIOVASCULAR: S1 and S2 present. No murmurs, rubs, or gallops. PULMONARY: Chest is clear to auscultation, no wheezing or crackles. ABDOMEN: Soft, nontender, nondistended, normoactive bowel sounds. No palpable organomegaly. MUSCULOSKELETAL: No joint swelling or deformity. EXTREMITIES: No cyanosis, clubbing, or pedal edema. NEUROLOGICAL: Gross neurological examination did not reveal any focal deficits. SKIN: No rashes. Assessment and plan Abdominal pain Nausea and vomiting Elevated troponin History of ischemic cardiomyopathy with most recent EF of 20% Elevated BNP of 38,000, does not appear to be volume overloaded History of CABG with stenting Permanent pacemaker AICD in 2019 History of fibromyalgia Hyperlipidemia COPD, not an exacerbation hypertension Plan; Monitor vital signs Monitor CBC Monitor CMP Trend troponins Continue antiemetics Continue aspirin, Plavix, Lipitor Resume home meds Vascular surgery consulted for ascending aortic aneurysm Cardiology consulted Past Medical History Past Medical History: Coronary Artery Disease (CAD), Chest Pain / Angina, COPD, Hyperlipidemia, Hypertension, Myocardial Infarction ([place]), Musculoskeletal Disorder, Osteoarthritis (OA), Prostate Disorder, Sleep Apnea/CPAP/BIPAP Additional Past Medical History / Comment(s): HH, fibromyalgia, anemia, hypogonadism, vtach, NSTEMI 10/20/19, CPAP use, Inogen portable. Kidney stones; left flank pain, chronic toni shoulder pain, states has numbness rt arm, recent adm. for chest pain, difficulty swallowing & weight loss Last Myocardial Infarction Date:: 10/20/19 History of Any Multi-Drug Resistant Organisms: None Reported Past Surgical History: Adenoidectomy, AICD, Back Surgery, Cholecystectomy, Coronary Bypass/CABG, Heart Catheterization, Hernia Repair, Orthopedic Surgery, Tonsillectomy Additional Past Surgical History / Comment(s): CABG x3 in 1999, rhinoplasty, ACDF 2, left bunionectomy, Lasik, lipoma from left shoulder 2, colonoscopy 5 years ago, hernia repair. pacer Past Anesthesia/Blood Transfusion Reactions: No Reported Reaction Type of Cardiac Device: AICD Device Placement Date:: 12/12/19 Past Psychological History: No Psychological Hx Reported Smoking Status: Former smoker Past Alcohol Use History: None Reported Past Drug Use History: Marijuana - Past Family History Mother Family Medical History: Cancer, Coronary Artery Disease (CAD) Father Family Medical History: Cancer Brother(s) Family Medical History: Congestive Heart Failure (CHF), Coronary Artery Disease (CAD) Sister(s) Family Medical History: Congestive Heart Failure (CHF) Medications and Allergies Home Medications Medication Instructions Recorded Confirmed Type Aspirin 81 mg PO DAILY chew 10/26/19 12/01/22 Rx Clopidogrel [Plavix] 75 mg PO DAILY #30 tab 10/26/19 12/01/22 Rx Vit C/E/Zn/Coppr/Lutein/Zeaxan 1 cap PO BID 12/08/19 12/01/22 History [Preservision Areds 2 Softgel] Atorvastatin [Lipitor] 80 mg PO HS 08/10/21 12/01/22 History DULoxetine HCL [Cymbalta] 60 mg PO DAILY 08/10/21 12/01/22 History Potassium Citrate [Urocit-K] 10 meq PO BID 08/10/21 12/01/22 History Lidocaine 5% Patch [Lidoderm 5% 1 patch TRANSDERM DAILY 06/13/22 12/01/22 History Patch] Multivitamins, Thera [Multivitamin 1 tab PO DAILY 06/13/22 12/01/22 History (formulary)] Sotalol [Betapace] 80 mg PO BID 06/13/22 12/01/22 History oxyCODONE-APAP 10-325MG [Percocet 1 tab PO Q4HR PRN MDD 5 tabs 06/13/22 12/01/22 History 10-325 mg] Cholecalciferol [Vitamin D3 (25 50 mcg PO DAILY 30 Days #30 tab 06/19/22 12/01/22 Rx Mcg = 1000 Iu)] ALPRAZolam [Xanax] 0.5 mg PO BID PRN 09/20/22 12/01/22 History Ascorbic Acid [Vitamin C] 500 mg PO DAILY 09/20/22 12/01/22 History Furosemide [Lasix] 40 mg PO Q12HR #60 tab 09/24/22 12/01/22 Rx carvediloL [Coreg] 3.125 mg PO BID-W/MEALS #60 tab 09/24/22 12/01/22 Rx Sacubitril/Valsartan [Entresto 24 1 tab PO BID 11/13/22 12/01/22 History mg-26 mg Tablet] Dapagliflozin Propanediol [Farxiga] 10 mg PO DAILY #30 tablet 11/14/22 12/01/22 Rx Nitroglycerin Sl Tabs [Nitrostat] 0.4 mg SL Q5M PRN 12/01/22 12/01/22 History Allergies Allergy/AdvReac Type Severity Reaction Status Date / Time Iodinated Contrast Media Allergy Rash/Hives Verified 12/01/22 08:42 Physical Exam Vitals: Vital Signs Temp Pulse Resp BP BP Pulse Ox 12/01/22 09:10 14 151/87 99 12/01/22 05:16 90 18 155/86 97 12/01/22 03:47 96 20 150/78 96 12/01/22 02:18 96 20 160/97 96 12/01/22 01:09 93 18 157/86 99 11/30/22 22:33 98.1 F 86 20 135/86 100 Intake and Output 11/30/22 12/01/22 12/01/22 22:59 06:59 14:59 Other: Voiding Method Urinal Weight 62.142 kg Results CBC & Chem 7: 12/01/22 11:34 12/01/22 11:34 Labs: Abnormal Lab Results - Last 24 Hours (Table) 11/30/22 11/30/22 11/30/22 Range/Units 00:52 00:52 00:52 RBC 3.98 L (4.30-5.90) m/uL Hgb 11.7 L (13.0-17.5) gm/dL Hct 36.3 L (39.0-53.0) % RDW 15.6 H (11.5-15.5) % INR 1.2 H (<1.2) Sodium 133 L (137-145) mmol/L Carbon Dioxide 16 L (22-30) mmol/L BUN 27 H (9-20) mg/dL Creatinine 1.58 H (0.66-1.25) mg/dL Glucose 106 H (74-99) mg/dL Troponin I (0.000-0.034) ng/mL Albumin 3.4 L (3.5-5.0) g/dL Urine Protein (Negative) Urine Glucose (UA) (Negative) Urine Ketones (Negative) Calcium Oxalate Crystal (None) /hpf Amorphous Sediment (None) /hpf Hyaline Casts (0-2) /lpf Urine Mucus (None) /hpf 11/30/22 11/30/22 12/01/22 Range/Units 00:52 04:15 02:42 RBC (4.30-5.90) m/uL Hgb (13.0-17.5) gm/dL Hct (39.0-53.0) % RDW (11.5-15.5) % INR (<1.2) Sodium (137-145) mmol/L Carbon Dioxide (22-30) mmol/L BUN (9-20) mg/dL Creatinine (0.66-1.25) mg/dL Glucose (74-99) mg/dL Troponin I 0.150 H* 0.153 H* (0.000-0.034) ng/mL Albumin (3.5-5.0) g/dL Urine Protein 2+ H (Negative) Urine Glucose (UA) 3+ H (Negative) Urine Ketones 1+ H (Negative) Calcium Oxalate Crystal Moderate H (None) /hpf Amorphous Sediment Rare H (None) /hpf Hyaline Casts 197 H (0-2) /lpf Urine Mucus Occasional H (None) /hpf
[2022-12-01] MEDS: carvediloL 3.125 MG TAB PO SCH (17:52)
[2022-12-01] MEDS: ATORVASTATIN 80 MG TAB PO SCH (20:22)
[2022-12-01] MEDS: SOTALOL 80 MG TAB PO SCH (20:22)
[2022-12-02] MEDS: carvediloL 3.125 MG TAB PO SCH ×2 (06:27→19:37)
[2022-12-02] MEDS: ASCORBIC ACID 500 MG TAB PO SCH (08:23)
[2022-12-02] MEDS: CLOPIDOGREL 75 MG TAB PO SCH (08:23)
[2022-12-02] MEDS: CHOLECALCIFEROL 25 MCG (1000 IU) TABLET PO SCH (08:23)
[2022-12-02] MEDS: SOTALOL 80 MG TAB PO SCH ×2 (08:23→22:44)
[2022-12-02] MEDS: ASPIRIN 81 MG PO SCH (08:23)
[2022-12-02] MEDS: MORPHINE SULFATE 4 MG/ML SYRINGE IV PRN ×2 (08:48→19:50)
--- NOTE | 2022-12-02 09:51 | P.CRDCN ---
History of Present Illness History of present illness: HISTORY OF PRESENT ILLNESS: This is a 77-year-old male with a past medical history significant for or near disease with previous CABG, ischemic cardiomyopathy, AICD implantation, ventricular tachycardia, hypertension, hyperlipidemia, and former nicotine dependence. Patient follows in the office with Dr. Chisholm. We have been asked to see the patient in consultation for elevated troponins. Patient examined at the bedside. Patient presented to the hospital with pain across his abdomen, lower back, and bilateral flank regions. The patient states he has been having this pain recently and states the pain is not resolved until he has a bowel movement or urinates. He does report having pain with urination. The patient does report a history of kidney stones. He currently denies any chest pain or pressure. He denies any shortness of breath. The patient states he occasionally gets pain in his chest which is nonexertional. He states this has been going on for the past 30 years. * EKG reveals ventricular paced rhythm * CT abdomen and pelvis: Moderate left and small right pleural effusions. Left lower lobe atelectasis. Partially visualized aneurysmal ascending aorta 4.6 cm. Letter wall thickening versus partial distention. Minimal free fluid in the posterior pelvis/presacral edema. Nonspecific. Cholecystectomy. * Laboratory data: W BC 7.3. Hemoglobin 11.5. Platelet count 252. Sodium 133. Potassium 5.4. BUN 32. Creatinine 1.64. Troponin 0.150. 0.153. 0.154. 0.154. * Current home cardiac medications include carvedilol 3.125 mg twice a day, sotalol 80 mg twice a day, Entresto 24-26mg BID, Lasix 40 mg twice a day, Plavix 75 mg daily, Lipitor 80 mg at night, aspirin 81 mg daily, and Farxiga 10mg daily * Echocardiogram completed in September 2022 revealed ejection fraction less than 20%, [id number] mitral regurgitation, moderate tricuspid regurgitation, dilated aortic root and ascending aorta * Cardiac catheterization history: August 2021 with Impella supported PCI of the left main and circumflex REVIEW OF SYSTEMS: At the time of my exam: CONSTITUTIONAL: Denies fever or chills. HEENT: Denies blurred vision, vision changes, or eye pain. Denies hemoptysis CARDIOVASCULAR: Denies chest pain. Denies orthopnea. Denies PND. Denies palpitations RESPIRATORY: Denies shortness of breath. GASTROINTESTINAL: Denies abdominal pain. Denies nausea or vomiting. HEMATOLOGIC: Denies bleeding disorders. GENITOURINARY: Denies any blood in urine. SKIN: Denies pruitis. Denies rash. PHYSICAL EXAM: VITAL SIGNS: Reviewed. GENERAL: Well-developed in no acute distress. HEENT: Head is normocephalic. Pupils are equal, round. Sclerae anicteric. Mucous membranes of the mouth are moist. Neck supple. No JVD or thyromegaly LUNGS: Respirations even and unlabored. Lungs essentially clear to auscultation bilaterally. HEART: Regular rate and rhythm. S1 and S2 heard. ABDOMEN: Soft. Nondistended. Nontender. EXTREMITIES: Normal range of motion. No clubbing or cyanosis. Peripheral pulses intact. No lower extremity edema NEUROLOGIC: Awake and alert. Oriented x 3. ASSESSMENT: Abdominal pain Lower back pain and flank pain History of kidney stones Elevated troponins, flat, not suggestive of ACS Chronic kidney disease Chronic congestive heart failure with reduced ejection fraction, EF 20% Ascending aortic aneurysm, 4.6cm Coronary artery disease with previous CABG and subsequent stenting Ischemic cardiomyopathy History of AICD implantation History of ventricular tachycardia Hypertension Hyperlipidemia Former nicotine dependence PLAN: No need to repeat echocardiogram as this was performed in September 2022 An acute coronary event has been ruled out. Troponins do not reflect primary myocardial injury. Continue current cardiac medications Patient is stable from a cardiac perspective We will sign off. Please reconsult if needed. Nurse practitioner note has been reviewed by physician. Signing provider agrees with the documented findings, assessment, and plan of care. Past Medical History Past Medical History: Coronary Artery Disease (CAD), Chest Pain / Angina, COPD, Hyperlipidemia, Hypertension, Myocardial Infarction ([place]), Musculoskeletal Disorder, Osteoarthritis (OA), Prostate Disorder, Sleep Apnea/CPAP/BIPAP Additional Past Medical History / Comment(s): HH, fibromyalgia, anemia, hypogonadism, vtach, NSTEMI 10/20/19, CPAP use, Inogen portable. Kidney stones; left flank pain, chronic toni shoulder pain, states has numbness rt arm, recent adm. for chest pain, difficulty swallowing & weight loss Last Myocardial Infarction Date:: 10/20/19 History of Any Multi-Drug Resistant Organisms: None Reported Past Surgical History: Adenoidectomy, AICD, Back Surgery, Cholecystectomy, Coronary Bypass/CABG, Heart Catheterization, Hernia Repair, Orthopedic Surgery, Tonsillectomy Additional Past Surgical History / Comment(s): CABG x3 in 1999, rhinoplasty, ACDF 2, left bunionectomy, Lasik, lipoma from left shoulder 2, colonoscopy 5 years ago, hernia repair. pacer Past Anesthesia/Blood Transfusion Reactions: No Reported Reaction Type of Cardiac Device: AICD Device Placement Date:: 12/12/19 Past Psychological History: No Psychological Hx Reported Smoking Status: Former smoker Past Alcohol Use History: None Reported Past Drug Use History: Marijuana - Past Family History Mother Family Medical History: Cancer, Coronary Artery Disease (CAD) Father Family Medical History: Cancer Brother(s) Family Medical History: Congestive Heart Failure (CHF), Coronary Artery Disease (CAD) Sister(s) Family Medical History: Congestive Heart Failure (CHF) Medications and Allergies Home Medications Medication Instructions Recorded Confirmed Type Aspirin 81 mg PO DAILY chew 10/26/19 12/01/22 Rx Clopidogrel [Plavix] 75 mg PO DAILY #30 tab 10/26/19 12/01/22 Rx Vit C/E/Zn/Coppr/Lutein/Zeaxan 1 cap PO BID 12/08/19 12/01/22 History [Preservision Areds 2 Softgel] Atorvastatin [Lipitor] 80 mg PO HS 08/10/21 12/01/22 History DULoxetine HCL [Cymbalta] 60 mg PO DAILY 08/10/21 12/01/22 History Potassium Citrate [Urocit-K] 10 meq PO BID 08/10/21 12/01/22 History Lidocaine 5% Patch [Lidoderm 5% 1 patch TRANSDERM DAILY 06/13/22 12/01/22 History Patch] Multivitamins, Thera [Multivitamin 1 tab PO DAILY 06/13/22 12/01/22 History (formulary)] Sotalol [Betapace] 80 mg PO BID 06/13/22 12/01/22 History oxyCODONE-APAP 10-325MG [Percocet 1 tab PO Q4HR PRN MDD 5 tabs 06/13/22 12/01/22 History 10-325 mg] Cholecalciferol [Vitamin D3 (25 50 mcg PO DAILY 30 Days #30 tab 06/19/22 12/01/22 Rx Mcg = 1000 Iu)] ALPRAZolam [Xanax] 0.5 mg PO BID PRN 09/20/22 12/01/22 History Ascorbic Acid [Vitamin C] 500 mg PO DAILY 09/20/22 12/01/22 History Furosemide [Lasix] 40 mg PO Q12HR #60 tab 09/24/22 12/01/22 Rx carvediloL [Coreg] 3.125 mg PO BID-W/MEALS #60 tab 09/24/22 12/01/22 Rx Sacubitril/Valsartan [Entresto 24 1 tab PO BID 11/13/22 12/01/22 History mg-26 mg Tablet] Dapagliflozin Propanediol [Farxiga] 10 mg PO DAILY #30 tablet 11/14/22 12/01/22 Rx Nitroglycerin Sl Tabs [Nitrostat] 0.4 mg SL Q5M PRN 12/01/22 12/01/22 History Allergies Allergy/AdvReac Type Severity Reaction Status Date / Time Iodinated Contrast Media Allergy Rash/Hives Verified 12/01/22 08:42 Physical Exam Vitals: Vital Signs Temp Pulse Resp BP BP Pulse Ox 12/01/22 09:10 14 151/87 99 12/01/22 05:16 90 18 155/86 97 12/01/22 03:47 96 20 150/78 96 12/01/22 02:18 96 20 160/97 96 12/01/22 01:09 93 18 157/86 99 11/30/22 22:33 98.1 F 86 20 135/86 100 Intake and Output 11/30/22 12/01/22 12/01/22 22:59 06:59 14:59 Other: Voiding Method Urinal Weight 62.142 kg Results 12/01/22 11:34 12/02/22 11:50 Cardiac Enzymes 11/30/22 11/30/22 12/01/22 Range/Units 00:52 00:52 02:42 AST 28 (17-59) U/L Troponin I 0.150 H* 0.153 H* (0.000-0.034) ng/mL 12/01/22 12/01/22 12/01/22 Range/Units 09:31 11:34 11:34 AST 38 (17-59) U/L Troponin I 0.154 H* 0.154 H* (0.000-0.034) ng/mL Coagulation 11/30/22 Range/Units 00:52 PT 12.0 (9.0-12.0) sec APTT 24.3 (22.0-30.0) sec CBC 11/30/22 12/01/22 Range/Units 00:52 11:34 WBC 6.6 7.3 (3.8-10.6) k/uL RBC 3.98 L 3.94 L (4.30-5.90) m/uL Hgb 11.7 L 11.5 L (13.0-17.5) gm/dL Hct 36.3 L 36.9 L (39.0-53.0) % Plt Count 258 252 (150-450) k/uL Comprehensive Metabolic Panel 11/30/22 12/01/22 Range/Units 00:52 11:34 Sodium 133 L 133 L (137-145) mmol/L Potassium 5.1 5.4 H (3.5-5.1) mmol/L Chloride 104 105 (98-107) mmol/L Carbon Dioxide 16 L 17 L (22-30) mmol/L BUN 27 H 32 H (9-20) mg/dL Creatinine 1.58 H 1.64 H (0.66-1.25) mg/dL Glucose 106 H 127 H (74-99) mg/dL Calcium 9.1 8.7 (8.4-10.2) mg/dL AST 28 38 (17-59) U/L ALT 17 19 (4-49) U/L Alkaline Phosphatase 99 80 (38-126) U/L Total Protein 6.3 6.4 (6.3-8.2) g/dL Albumin 3.4 L 3.5 (3.5-5.0) g/dL Current Medications Generic Name Dose Route Start Last Admin Trade Name Freq PRN Reason Stop Dose Admin Alprazolam 0.5 mg 12/01/22 09:56 Alprazolam 0.5 Mg Tab PO BID PRN Anxiety Ascorbic Acid 500 mg 12/02/22 09:00 Ascorbic Acid 500 Mg Tab PO DAILY GORDY Aspirin 81 mg 12/02/22 09:00 Aspirin 81 Mg PO DAILY [facility] Atorvastatin Calcium 80 mg 12/01/22 21:00 Atorvastatin 80 Mg Tab PO HS [facility] Carvedilol 3.125 mg 12/01/22 17:30 Carvedilol 3.125 Mg Tab PO BID-W/MEALS [facility] Cholecalciferol 50 mcg 12/02/22 09:00 Cholecalciferol 25 Mcg (1000 Iu) Tablet PO DAILY [facility] Clopidogrel Bisulfate 75 mg 12/02/22 09:00 Clopidogrel 75 Mg Tab PO DAILY [facility] Morphine Sulfate 4 mg 12/01/22 04:06 12/01/22 10:41 Morphine Sulfate 4 Mg/Ml Syringe IV 4 mg Q4HR PRN Administration Severe Pain (Scale 7 to 10) Naloxone HCl 0.2 mg 12/01/22 04:06 Naloxone 0.4 Mg/Ml 1 Ml Vial IV Q2M PRN Opioid Reversal Ondansetron HCl 4 mg 12/01/22 04:06 Ondansetron 4 Mg/2 Ml Vial IVP Q8HR PRN Nausea And Vomiting Sotalol HCl 80 mg 12/01/22 21:00 Sotalol 80 Mg Tab PO BID [facility] Intake and Output 11/30/22 12/01/22 12/01/22 22:59 06:59 14:59 Other: Voiding Method Urinal Weight 62.142 kg 12/01/22 11:34 12/01/22 11:34
[2022-12-02 10:42] LABS: Glucose,Whole Blood 135 mg/dL (70-110)
[2022-12-02] MEDS ORDERED: IPRATROPIUM-ALBUTEROL 3 ML NEB INHALATION PRN (10:47)
[2022-12-02] MEDS ORDERED: SODIUM CHLORIDE 0.9% 500 ML 500 ML IV ONE (11:06)
[2022-12-02 11:32] LABS: Glucose,Whole Blood 132 mg/dL (70-110)
--- NOTE | 2022-12-02 11:50 | XR ---
EXAMINATION TYPE: XR chest 1V portable DATE OF EXAM: 12/02/2022 COMPARISON: 11/13/2022 INDICATION: Short of breath TECHNIQUE: Single frontal view of the chest is obtained. FINDINGS: The heart size is mildly prominent. The pulmonary vasculature is normal. Mild right lower lobe infiltrate is present. Correlate for atelectasis or pneumonia. Retrocardiac infiltrate is likely present. Small effusion is likely present on the left. Correlate fo r atelectasis and pneumonia. IMPRESSION: 1. Correlate for retrocardiac infiltrate and small left pleural effusion. Findings are worsening from comparison. 2. Developing right lower lobe medial lung infiltrate. Follow-up is recommended
[2022-12-02 12:53] LABS: ALT 46 U/L (4-49); AST 125 U/L (17-59); African American GFR (CKD) 40 (>60 ml/min/1.73 sqM); Albumin 3.2 g/dL (3.5-5.0); Albumin/Globulin Ratio 1.2; Alkaline Phosphatase 150 U/L (38-126); Anion Gap 12 mmol/L; Blood Urea Nitrogen 40 mg/dL (9-20); Calcium 8.3 mg/dL (8.4-10.2); Carbon Dioxide 15 mmol/L (22-30); Chloride 107 mmol/L (98-107); Globulin 2.7 g/dL; Glucose 127 mg/dL (74-99); Non-African American GFR(CKD) 34 (>60 ml/min/1.73 sqM); Sodium 134 mmol/L (137-145); Total Bilirubin 1.3 mg/dL (0.2-1.3); Total Protein 5.9 g/dL (6.3-8.2)
[2022-12-02] MEDS ORDERED: PNEUMONIA PROTOCOL UTILIZED 1 EACH MISC PO PRN (13:11)
[2022-12-02] MEDS ORDERED: VANCOMYCIN IV PER PHARMACY 1 EACH MISC MISCELLANE PRN (13:11)
[2022-12-02 13:25] LABS: Potassium 6.7 mmol/L (3.5-5.1)
[2022-12-02] MEDS ORDERED: VANCOMYCIN 1,250 MG in SODIUM CHLORIDE 0.9% 250 ML IVPB SCH (13:30)
[2022-12-02] MEDS ORDERED: SODIUM POLYSTYRENE SULFONATE 15 GM/60 ML BOTTLE PO ONE (13:31)
[2022-12-02] MEDS ORDERED: DEXTROSE 50% SYRINGE 50 ML IVP ONE (13:31)
[2022-12-02] MEDS ORDERED: INSULIN REGULAR 100 UNIT/ML VIAL (IV) IV ONE (13:31)
[2022-12-02] MEDS ORDERED: ALBUTEROL NEB (CONC) 2.5 MG/0.5 ML INHALATION ONE (13:31)
[2022-12-02] MEDS ORDERED: CALCIUM GLUCONATE IN NACL 1 GM in SALINE 1 100ML.BAG IVPB ONE (13:31)
--- NOTE | 2022-12-02 13:38 | P.PN ---
Subjective Progress Note Date: 12/02/22 The patient is a 77-year-old male with a known history of severe ischemic cardiac myopathy, status post ICD implantation, status post CABG and PCI, he underwent PCI of the left main and circumflex in [place] [address] Chisholm with mechanical support. He has a patent WHITE to the LAD and patent radial to the right PDA was occluded SVG to the PLV who presented to the hospital because of abdominal pain and nausea and vomiting. Patient stated that he has been having abdominal pain for last couple of days, pain is located in the upper part of the abdomen and is going to his back. Denies any chest pain. Does complain of worsening shortness of breath. Because of the abdominal pain patient came to the ER Initial lab work in the ER showed WBC 6.6, hemoglobin 11.7, platelet count 258, sodium 133, potassium 5.1, BUN 27, creatinine 1.58 CT Abdomen pelvis showed moderate left and small right pleural effusions, left lower lobe atelectasis, partially visualized aneurysmal aorta of 4.6 cm Patient was admitted to medicine service for further evaluation and treatment 12/08. Patient seen and examined. Patient had rapid response called because of feeling of being cold and clammy, patient also having pain in his belly. Complaining of shortness of breath at rest. When the aide team arrived, patient blood pressure was stable but heart rate dipped into 30s. EKGs was ordered, stat CBC CMP, chest x-ray ordered. Patient was transferred to ICU REVIEW OF SYSTEMS: CONSTITUTIONAL: Complaining of lethargic and cold and clammy CARDIOVASCULAR: No chest pain, PULMONARY: Complaining of shortness of breath GASTROINTESTINAL: No diarrhea,. Complaining of abdominal pain NEUROLOGICAL: No headaches, no weakness, PHYSICAL EXAMINATION: GENERAL: The patient is alert and oriented x3, chronically sick-looking, currently in acute distress HEENT: Pupils are round and equally reacting to light. EOMI. No scleral icterus. No conjunctival pallor. Normocephalic, atraumatic. No pharyngeal erythema. No thyromegaly. CARDIOVASCULAR: S1 and S2 present. No murmurs, rubs, or gallops. PULMONARY: Coarse breath sounds bilaterally ABDOMEN: Soft, nontender, nondistended, normoactive bowel sounds. No palpable organomegaly. MUSCULOSKELETAL: No joint swelling or deformity. EXTREMITIES: No cyanosis, clubbing, or pedal edema. Extremities are cold to touch NEUROLOGICAL: Gross neurological examination did not reveal any focal deficits. SKIN: No rashes. Assessment and plan Bradycardia Pneumonia Hyperkalemia Chronic respiratory failure Abdominal pain Nausea and vomiting Elevated troponin History of ischemic cardiomyopathy with most recent EF of 20% Elevated BNP of 38,000, does not appear to be volume overloaded History of CABG with stenting Permanent pacemaker AICD in 2019 History of fibromyalgia Hyperlipidemia COPD, not an exacerbation hypertension Monitor vital signs Monitor CBC Monitor CMP Continue telemetry monitoring Blood cultures ordered Check pro-Tylor Stat CBC, CMP, troponin Results of chest x-ray noted, suspicious for pneumonia. Start IV Zosyn and vancomycin Hyperkalemia protocol initiated Consult pulmonary Follow-up on cardiology recommendations Objective - Vital Signs Vital signs: Vital Signs Temp 97.5 F L 12/02/22 10:40 Pulse 63 12/02/22 10:40 Resp 16 12/02/22 10:40 BP 135/91 12/02/22 10:40 Pulse Ox 92 L 12/02/22 10:40 FiO2 Intake & Output 12/01/22 12/02/22 12/02/22 18:59 06:59 18:59 Output Total 0 Balance 0 Output: Emesis 0 Other: Voiding Method Urinal Urinal Urinal # Voids 2 - Labs CBC & Chem 7: 12/01/22 11:34 12/02/22 11:50 Labs: Abnormal Lab Results - Last 24 Hours (Table) 12/02/22 12/02/22 12/02/22 Range/Units 10:40 11:31 11:50 Sodium 134 L (137-145) mmol/L Potassium 6.7 H* (3.5-5.1) mmol/L Carbon Dioxide 15 L (22-30) mmol/L BUN 40 H (9-20) mg/dL Creatinine 1.85 H (0.66-1.25) mg/dL Glucose 127 H (74-99) mg/dL POC Glucose (mg/dL) 135 H 132 H (70-110) mg/dL Calcium 8.3 L (8.4-10.2) mg/dL AST 125 H (17-59) U/L Alkaline Phosphatase 150 H (38-126) U/L Total Protein 5.9 L (6.3-8.2) g/dL Albumin 3.2 L (3.5-5.0) g/dL
[2022-12-02 13:52] LABS: Basophils % (A) 0 %; Eosinophils % (A) 0 %; HCT 39.6 % (39.0-53.0); HGB 12.1 gm/dL (13.0-17.5); Hypochromasia Marked; Lymphocytes % (A) 9 %; MCH 29.5 pg (25.0-35.0); MCHC 30.5 g/dL (31.0-37.0); MCV 96.6 fL (80.0-100.0); Mean Platelet Volume 9.2; Monocytes # (A) 0.8 k/uL (0-1.0); Monocytes % (A) 7 %; Neutrophils # (A) 8.9 k/uL (1.3-7.7); Neutrophils % (A) 81 %; Platelet Count 247 k/uL (150-450); RDW 15.5 % (11.5-15.5); WBC 10.9 k/uL (3.8-10.6)
[2022-12-02] MEDS: DEXTROSE 5% IN WATER 1,000 ML with SODIUM BICARB (1 MEQ/ML) 150 ML IV SCH (15:11)
[2022-12-02] MEDS: PIPERACILLIN-TAZOBACTAM 3.375 GM in SODIUM CHLORIDE 0.9% 100 ML IVPB SCH (18:43)
[2022-12-02] MEDS ORDERED: SODIUM CHLORIDE 0.9% 1,000 ML IV ONE (18:53)
[2022-12-02 19:22] LABS: Appearance,Urine Cloudy (Clear); Bacteria,Urine Rare /hpf; Bilirubin,Urine Negative (Negative); Blood,Urine Trace (Negative); Color,Urine Yellow; Glucose,Urine (UA) 2+ (Negative); Hyaline Casts,Urine 3 /lpf (0-2); Ketones,Urine Negative (Negative); Leukocyte Esterase,Urine Trace (Negative); Mucus,Urine Few /hpf; Nitrite,Urine Negative (Negative); PH, Urine 5.5 (5.0-8.0); Protein,Urine 1+ (Negative); RBC,Urine 40 /hpf (0-5); Specific Gravity,Urine 1.024 (1.001-1.035); Squamous Epithelial Cell,Urine 2 /hpf (0-4); Urobilinogen,Urine <2.0 mg/dL (<2.0); WBC,Urine 6 /hpf (0-5)
--- NOTE | 2022-12-02 20:16 | P.CONS ---
History of Present Illness - Reason for Consult Consult date: 12/02/22 Pneumonia, sepsis Requesting physician: Kurt Estrella - History of Present Illness Patient is a 77-year-old male with a past medical history significant for hypertension hyperlipidemia coronary artery disease COPD sleep apnea presented to hospital with abdominal and back pain described the pain to be sharp in nature denies any nausea no vomiting did have some diarrhea over the last 1 week no sick contact on presentation to the hospital patient was afebrile and no fever has been recorded subsequently patient did have a normal white count initially elevated lactic acid elevated BUN/creatinine elevated troponin levels and was normal urine was negative patient did have CT of abdominal pelvis moderate large and small right effusion lower lobe atelectasis bladder wall thickening versus partial distention correlate for cystitis and minimal free fluid in the posterior pelvis presacral edema patient did have a slight worsening of his condition requiring admission to the ICU and was concern for possible pneumonia patient was started on broad-spectrum antibiotics in the form of Zosyn and vancomycin infectious was consulted for further management of antibiotic therapy patient at time of evaluation slightly sleepy lethargic not very good historian so most information has been obtained from review the chart and nursing staff Review of Systems Positive point and negatives has been mentioned in the HPI, complete review of systems was performed and all other systems are negative Past Medical History Past Medical History: Coronary Artery Disease (CAD), Chest Pain / Angina, COPD, Hyperlipidemia, Hypertension, Myocardial Infarction ([place]), Musculoskeletal Disorder, Osteoarthritis (OA), Prostate Disorder, Sleep Apnea/CPAP/BIPAP Additional Past Medical History / Comment(s): HH, fibromyalgia, anemia, hypogonadism, vtach, NSTEMI 10/20/19, CPAP use, Inogen portable. Kidney stones; left flank pain, chronic toni shoulder pain, states has numbness rt arm, recent adm. for chest pain, difficulty swallowing & weight loss Last Myocardial Infarction Date:: 10/20/19 History of Any Multi-Drug Resistant Organisms: None Reported Past Surgical History: Adenoidectomy, AICD, Back Surgery, Cholecystectomy, Coronary Bypass/CABG, Heart Catheterization, Hernia Repair, Orthopedic Surgery, Tonsillectomy Additional Past Surgical History / Comment(s): CABG x3 in 1999, rhinoplasty, ACDF 2, left bunionectomy, Lasik, lipoma from left shoulder 2, colonoscopy 5 years ago, hernia repair. pacer Past Anesthesia/Blood Transfusion Reactions: No Reported Reaction Type of Cardiac Device: AICD Device Placement Date:: 12/12/19 Past Psychological History: No Psychological Hx Reported Smoking Status: Former smoker Past Alcohol Use History: None Reported Past Drug Use History: Marijuana - Past Family History Mother Family Medical History: Cancer, Coronary Artery Disease (CAD) Father Family Medical History: Cancer Brother(s) Family Medical History: Congestive Heart Failure (CHF), Coronary Artery Disease (CAD) Sister(s) Family Medical History: Congestive Heart Failure (CHF) Medications and Allergies Home Medications Medication Instructions Recorded Confirmed Type Aspirin 81 mg PO DAILY chew 10/26/19 12/01/22 Rx Clopidogrel [Plavix] 75 mg PO DAILY #30 tab 10/26/19 12/01/22 Rx Vit C/E/Zn/Coppr/Lutein/Zeaxan 1 cap PO BID 12/08/19 12/01/22 History [Preservision Areds 2 Softgel] Atorvastatin [Lipitor] 80 mg PO HS 08/10/21 12/01/22 History DULoxetine HCL [Cymbalta] 60 mg PO DAILY 08/10/21 12/01/22 History Potassium Citrate [Urocit-K] 10 meq PO BID 08/10/21 12/01/22 History Lidocaine 5% Patch [Lidoderm 5% 1 patch TRANSDERM DAILY 06/13/22 12/01/22 History Patch] Multivitamins, Thera [Multivitamin 1 tab PO DAILY 06/13/22 12/01/22 History (formulary)] Sotalol [Betapace] 80 mg PO BID 06/13/22 12/01/22 History oxyCODONE-APAP 10-325MG [Percocet 1 tab PO Q4HR PRN MDD 5 tabs 06/13/22 12/01/22 History 10-325 mg] Cholecalciferol [Vitamin D3 (25 50 mcg PO DAILY 30 Days #30 tab 06/19/22 12/01/22 Rx Mcg = 1000 Iu)] ALPRAZolam [Xanax] 0.5 mg PO BID PRN 09/20/22 12/01/22 History Ascorbic Acid [Vitamin C] 500 mg PO DAILY 09/20/22 12/01/22 History Furosemide [Lasix] 40 mg PO Q12HR #60 tab 09/24/22 12/01/22 Rx carvediloL [Coreg] 3.125 mg PO BID-W/MEALS #60 tab 09/24/22 12/01/22 Rx Sacubitril/Valsartan [Entresto 24 1 tab PO BID 11/13/22 12/01/22 History mg-26 mg Tablet] Dapagliflozin Propanediol [Farxiga] 10 mg PO DAILY #30 tablet 11/14/22 12/01/22 Rx Nitroglycerin Sl Tabs [Nitrostat] 0.4 mg SL Q5M PRN 12/01/22 12/01/22 History Allergies Allergy/AdvReac Type Severity Reaction Status Date / Time Iodinated Contrast Media Allergy Rash/Hives Verified 12/01/22 08:42 Physical Exam Vitals: Vital Signs Temp Pulse Pulse Resp BP BP Pulse Ox 12/02/22 14:00 57 L 20 123/60 93 L 12/02/22 13:30 60 14 132/65 98 12/02/22 13:00 58 L 16 133/81 90 L 12/02/22 12:31 54 L 16 131/82 96 12/02/22 10:40 97.5 F L 63 16 135/91 92 L 12/02/22 08:00 84 18 12/02/22 07:00 97.6 F 84 18 143/82 94 L 12/02/22 02:00 98.1 F 79 16 145/79 98 12/01/22 19:40 98.3 F 88 20 114/69 97 12/01/22 15:00 97.8 F 91 16 135/81 100 Intake and Output 12/01/22 12/02/22 12/02/22 22:59 06:59 14:59 Other: Voiding Method Urinal Urinal # Voids 1 2 GENERAL DESCRIPTION: Elderly male lying in bed, no distress. No tachypnea or accessory muscle of respiration use. HEENT: Shows Pallor , no scleral icterus. Oral mucous membrane is dry. No pharyngeal erythema or thrush NECK: Trachea central, no thyromegaly. LUNGS: Unlabored breathing. Decreased breath sound the bases. HEART: S1, S2, regular rate and rhythm. No loud murmur ABDOMEN: Soft, no tenderness , guarding or rigidity, no organomegaly EXTREMITIES: No edema of feet. SKIN: No rash, no masses palpable. NEUROLOGICAL: The patient is awake, alert, oriented x3, mood and affect normal. Results CBC & Chem 7: 12/02/22 13:30 12/02/22 17:03 Labs: Abnormal Lab Results - Last 24 Hours (Table) 12/02/22 12/02/22 12/02/22 Range/Units 10:40 11:31 11:50 WBC (3.8-10.6) k/uL RBC (4.30-5.90) m/uL Hgb (13.0-17.5) gm/dL MCHC (31.0-37.0) g/dL Neutrophils # (1.3-7.7) k/uL Sodium 134 L (137-145) mmol/L Potassium 6.7 H* (3.5-5.1) mmol/L Carbon Dioxide 15 L (22-30) mmol/L BUN 40 H (9-20) mg/dL Creatinine 1.85 H (0.66-1.25) mg/dL Glucose 127 H (74-99) mg/dL POC Glucose (mg/dL) 135 H 132 H (70-110) mg/dL Plasma Lactic Acid Kyle (0.7-2.0) mmol/L Calcium 8.3 L (8.4-10.2) mg/dL AST 125 H (17-59) U/L Alkaline Phosphatase 150 H (38-126) U/L Total Protein 5.9 L (6.3-8.2) g/dL Albumin 3.2 L (3.5-5.0) g/dL Free T3 pg/mL (2.8-5.3) pg/ml 12/02/22 12/02/22 12/02/22 Range/Units 13:30 13:30 13:30 WBC 10.9 H (3.8-10.6) k/uL RBC 4.10 L (4.30-5.90) m/uL Hgb 12.1 L (13.0-17.5) gm/dL MCHC 30.5 L (31.0-37.0) g/dL Neutrophils # 8.9 H (1.3-7.7) k/uL Sodium (137-145) mmol/L Potassium (3.5-5.1) mmol/L Carbon Dioxide (22-30) mmol/L BUN (9-20) mg/dL Creatinine (0.66-1.25) mg/dL Glucose (74-99) mg/dL POC Glucose (mg/dL) (70-110) mg/dL Plasma Lactic Acid Kyle 4.0 H* (0.7-2.0) mmol/L Calcium (8.4-10.2) mg/dL AST (17-59) U/L Alkaline Phosphatase (38-126) U/L Total Protein (6.3-8.2) g/dL Albumin (3.5-5.0) g/dL Free T3 pg/mL 2.7 L (2.8-5.3) pg/ml Assessment and Plan Plan: 1patient presented hospital with abdominal pain did have evidence of effusion no acute abdominal date abdominal pelvis except evidence of bilateral effusion and the patient did have slightly respiratory compromise mild cough concern for possible pneumonia not entirely excluded with the predominant abdominal symptoms and evidence of elevated lactic acid we will need to cover for the enteric gram-negative both aerobes and anaerobes 2-patient with borderline kidney function high risk of nephrotoxicity from vancomycin 3-we will obtain a sputum for Gram and culture check a CRP and a procalcitonin level blood cultures have been obtained and will be followed 4-continue with the Zosyn however discontinue vancomycin We will follow on clinical condition and cultures to further adjust medication if needed Thank you for this consultation we will follow the patient along with you Time with Patient: Greater than 30
[2022-12-02 20:29] LABS: Glucose,Whole Blood 121 mg/dL (70-110)
[2022-12-02] MEDS: ATORVASTATIN 80 MG TAB PO SCH (22:44)
--- NOTE | 2022-12-02 22:51 | CT ---
EXAMINATION TYPE: CT ChestAbdPelvis wo con CT DLP: 649.4 mGycm, Automated exposure control for dose reduction was used. DATE OF EXAM: 12/02/2022 9:51 PM COMPARISON: None. CLINICAL INDICATION:Male, 77 years old with history of right flank pain; PHH, rt flank pain Technique: Multiple axial images of the chest, abdomen, and pelvis were obtained. Two-dimensional cor onal and sagittal reconstructions were obtained. Contrast used: mL of , Oral contrast used: without Oral Contrast Findings: CHEST: LUNGS/ PLEURA: Centrilobular emphysema changes are present. Trace bilateral pleural effusions. Intral obular septal thickening. AIRWAY: Patent and unremarkable. HEART: Heart is mildly enlarged for size. Severe coronary artery atherosclerosis. Cardiac conduction leads are present. MEDIASTINUM: No gross evidence of adenopathy. VASCULATURE: No aortic aneurysm. The pulmonary trunk is dilated up to 3.8 cm. Ascending thoracic aor ta dilation up to 4.9 cm. MUSCULOSKELETAL: No acute osseous abnormalities. Severe degeneration changes of the shoulders. Sterno fidel wires are present. SOFT TISSUES/LYMPH NODES: Unremarkable. LOWER NECK: No significant findings. ABDOMEN: ABDOMEN LIVER: Unremarkable GALLBLADDER AND BILE DUCTS: Gallbladder appears surgically absent. Similar biliary dilation measuring up to 16 mm. PANCREAS: Unremarkable. SPLEEN: Unremarkable. ADRENAL GLANDS: Unremarkable. KIDNEYS AND URETERS: No evidence of hydronephrosis. Nonobstructing right 3 mm contrast. No left renal calculi.. Bilateral simple appearing renal cysts. PELVIS BLADDER: Nondistended with Abrams catheter in place. REPRODUCTIVE: Unremarkable. ABDOMEN & PELVIS STOMACH AND BOWEL: No evidence of bowel obstruction. The appendix is visualized and normal. Small hia ashley hernia. Surgical clips in the upper abdomen. PERITONEUM: No evidence of pneumoperitoneum or free fluid. VASCULATURE: Severe atherosclerotic calcifications are present throughout the abdominal aorta and its branches. MUSCULOSKELETAL: No acute osseous abnormalities. Moderate disc degeneration changes are present throu ghout the thoracolumbar spine. Severe degeneration changes LYMPH NODES: No gross evidence for lymphadenopathy. SOFT TISSUE/ABDOMINAL WALL: Postsurgical changes to the intra-abdominal wall IMPRESSION: 1. Motion limited exam no evidence for acute abdominal process to explain the patient's pain. The ap pendix appears normal. No obstructive uropathy. 2. There is dilation of the biliary system similar to prior. Consider MRCP as clinically warranted. 3. Nonobstructive right renal calculus. 4. Evidence of heart failure with cardiomegaly, pulmonary hypertension, trace bilateral pleural effu sions and pulmonary vascular congestion. 5. Moderate emphysema. 6. Ectasia of ascending thoracic aorta up to 4.8 cm. 7. No definitive acute process within the abdomen or pelvis.
[2022-12-03] MEDS: PIPERACILLIN-TAZOBACTAM 3.375 GM in SODIUM CHLORIDE 0.9% 100 ML IVPB SCH ×3 (00:20→15:52)
[2022-12-03] MEDS: MORPHINE SULFATE 4 MG/ML SYRINGE IV PRN ×2 (00:20→09:47)
[2022-12-03] MEDS ORDERED: SODIUM CHLORIDE 0.9% 500 ML 500 ML IV ONE (01:00)
[2022-12-03 03:14] LABS: ALT 48 U/L (4-49); AST 58 U/L (17-59); African American GFR (CKD) 46 (>60 ml/min/1.73 sqM); Albumin 3.1 g/dL (3.5-5.0); Alkaline Phosphatase 141 U/L (38-126); Anion Gap 11 mmol/L; Blood Urea Nitrogen 44 mg/dL (9-20); C Reactive Protein 3.1 mg/dL (<1.0); Calcium 8.3 mg/dL (8.4-10.2); Carbon Dioxide 18 mmol/L (22-30); Chloride 105 mmol/L (98-107); Glucose 88 mg/dL (74-99); Non-African American GFR(CKD) 40 (>60 ml/min/1.73 sqM); Potassium 4.9 mmol/L (3.5-5.1); Sodium 134 mmol/L (137-145); Total Bilirubin 1.2 mg/dL (0.2-1.3); Total Protein 5.8 g/dL (6.3-8.2)
[2022-12-03] MEDS ORDERED: IPRATROPIUM-ALBUTEROL 3 ML NEB INHALATION PRN ×2 (03:28→09:33)
[2022-12-03] MEDS ORDERED: FUROSEMIDE 10 MG/ML 4 ML VIAL IV SCH (03:30)
--- NOTE | 2022-12-03 03:48 | P.CNPUL ---
History of Present Illness Consult date: 12/03/22 Requesting physician: Kurt Estrella Reason for consult: other (ICU management) Chief complaint: Generalized upper abdominal pain History of present illness: I am seeing this patient in new consultation today 12/03/2022 in the intensive care unit after the patient was A-teamed, and transferred to the intensive care unit yesterday for worsening abdominal pain and shortness of breath. The patient is a 77-year-old male with past medical history significant for COPD, intermittent oxygen use at home, severe ischemic cardiomyopathy with ejection fraction of 20%, prior ventricular tachycardia, AICD/pacemaker implant, coronary artery disease status post CABG, prior myocardial infarction and cardiac stents,hypertension, hyperlipidemia, kidney stones, prostate disorder,and is an ex-smoker. Patient presented in the emergency room on November 30 complaining of generalized upper abdominal pain. No reports of nausea, vomiting, or constipation. Admits intermittent diarrhea. He is also reporting intermittent shortness of breath over the last month. This has been associated with fever, chills, and a minimally productive cough. CT of abdomen and pelvis without contrast on arrival did not show any acute intraabdominal process. It did show some more chronic changes including an aneurysmal ascending or aorta measuring 4.6 cm, bladder wall thickening or distention, minimal free fluid in the posterior pelvis/presacral edema, a surgically absent gallbladder, and billiary system dilation. It also showed moderate left and small right pleural effusions.the patient was admitted to the floor, and an A-team was called yesterday morning for concerns of worsening abdominal pain and shortness of breath. The patient also had a transient episode of bradycardia and hyperkalemia which was treated with K-cocktail and improved. The patient does have a pacemaker. Lactic acid level was also elevated at 4. Blood pressure was stable, and did not require vasopressors. Patient was transferred to the intensi ve care unit. A follow-up CT of the chest/abdomen/pelvis with contrast, again showed no acute intra-abdominal process. It did show evidence of heart failure with cardiomegaly, trace bilateral pleural effusions, and pulmonary vascular congestion. There are some chronic emphysematous changes. There is redemonstration of the prior findings. Patient is currently sitting up in bed, on 3 L nasal cannula, in no acute distress. Chest x-ray from yesterday morning shows a possible developing right lower lobe infiltrate. There is also a suspected small left pleural effusion. Patient is empirically covered on Zosyn. He is afebrile. Procalcitonin level was mildly elevated at 0.2. He has multiple general complaints, and is technically a poor historian. He is telling me that he has bilateral flank pain and abdominal pain. Urinalysis was not concerning for UTI. Most recent CBC from yesterday morning shows a WBC count of 11, hemoglobin 12, hematocrit 39, platelets 247. BMP from yesterday shows sodium 134, potassium 4.9, chloride 107, serum bicarb 15, BUN 40, creatinine 1.85, glucose 127. Lactic acid level is down to 2.4. He has been given a total of 2 L normal saline bolus. The patient does have a component of metabolic acidosis, and currently has sodium bicarb 3 A in D5W infusing at 50 ML's per hour. LFTs are mildly elevated. Troponins are elevated at 0.15, 0.15, 0.11 respectively. ECG on arrival shows no acute ischemic changes. Patient will be monitored in the intensive care unit. Review of Systems REVIEW OF SYSTEMS: CONSTITUTIONAL: Denies any recent significant weight loss or weight gain. EYES: Denies change in vision. EARS, NOSE, MOUTH, THROAT: Denies headaches, denies sore throat. CARDIOVASCULAR: Denies chest pain, palpitations or syncopal episodes. RESPIRATORY: see HPI GASTROINTESTINAL: see HPI GENITOURINARY: Denies hematuria, denies infections. MUSKULOSKELETAL: Denies pain, denies swelling. INTEGUMENTARY: Denies rash, denies eczema. NEUROLOGICAL: Denies recent memory loss, no recent seizure activity. PSYCHIATRIC: Denies anxiety, denies depression. HEMATOLOGIC/LYMPHATIC: Denies anemia, denies enlarged lymph node Past Medical History Past Medical History: Coronary Artery Disease (CAD), Chest Pain / Angina, COPD, Hyperlipidemia, Hypertension, Myocardial Infarction (OR), Musculoskeletal Disorder, Osteoarthritis (OA), Prostate Disorder, Sleep Apnea/CPAP/BIPAP Additional Past Medical History / Comment(s): HH, fibromyalgia, anemia, hypo gonadism, vtach, NSTEMI 10/20/19, CPAP use, Inogen portable. Kidney stones; left flank pain, chronic toni shoulder pain, states has numbness rt arm, recent adm. for chest pain, difficulty swallowing & weight loss Last Myocardial Infarction Date:: 10/20/19 History of Any Multi-Drug Resistant Organisms: None Reported Past Surgical History: Adenoidectomy, AICD, Back Surgery, Cholecystectomy, Coronary Bypass/CABG, Heart Catheterization, Hernia Repair, Orthopedic Surgery, Tonsillectomy Additional Past Surgical History / Comment(s): CABG x3 in 1999, rhinoplasty, ACDF 2, left bunionectomy, Lasik, lipoma from left shoulder 2, colonoscopy 5 years ago, hernia repair. pacer Past Anesthesia/Blood Transfusion Reactions: No Reported Reaction Type of Cardiac Device: AICD Device Placement Date:: 12/12/19 Past Psychological History: No Psychological Hx Reported Smoking Status: Former smoker Past Alcohol Use History: None Reported Past Drug Use History: Marijuana - Past Family History Mother Family Medical History: Cancer, Coronary Artery Disease (CAD) Father Family Medical History: Cancer Brother(s) Family Medical History: Congestive Heart Failure (CHF), Coronary Artery Disease (CAD) Sister(s) Family Medical History: Congestive Heart Failure (CHF) Medications and Allergies Home Medications Medication Instructions Recorded Confirmed Type Aspirin 81 mg PO DAILY chew 10/26/19 12/01/22 Rx Clopidogrel [Plavix] 75 mg PO DAILY #30 tab 10/26/19 12/01/22 Rx Vit C/E/Zn/Coppr/Lutein/Zeaxan 1 cap PO BID 12/08/19 12/01/22 History [Preservision Areds 2 Softgel] Atorvastatin [Lipitor] 80 mg PO HS 08/10/21 12/01/22 History DULoxetine HCL [Cymbalta] 60 mg PO DAILY 08/10/21 12/01/22 History Potassium Citrate [Urocit-K] 10 meq PO BID 08/10/21 12/01/22 History Lidocaine 5% Patch [Lidoderm 5% 1 patch TRANSDERM DAILY 06/13/22 12/01/22 History Patch] Multivitamins, Thera [Multivitamin 1 tab PO DAILY 06/13/22 12/01/22 History (formulary)] Sotalol [Betapace] 80 mg PO BID 06/13/22 12/01/22 History oxyCODONE-APAP 10-325MG [Percocet 1 tab PO Q4HR PRN MDD 5 tabs 06/13/22 12/01/22 History 10-325 mg] Cholecalciferol [Vitamin D3 (25 50 mcg PO DAILY 30 Days #30 tab 06/19/22 12/01/22 Rx Mcg = 1000 Iu)] ALPRAZolam [Xanax] 0.5 mg PO BID PRN 09/20/22 12/01/22 History Ascorbic Acid [Vitamin C] 500 mg PO DAILY 09/20/22 12/01/22 History Furosemide [Lasix] 40 mg PO Q12HR #60 tab 09/24/22 12/01/22 Rx carvediloL [Coreg] 3.125 mg PO BID-W/MEALS #60 tab 09/24/22 12/01/22 Rx Sacubitril/Valsartan [Entresto 24 1 tab PO BID 11/13/22 12/01/22 History mg-26 mg Tablet] Dapagliflozin Propanediol [Farxiga] 10 mg PO DAILY #30 tablet 11/14/22 12/01/22 Rx Nitroglycerin Sl Tabs [Nitrostat] 0.4 mg SL Q5M PRN 12/01/22 12/01/22 History Allergies Allergy/AdvReac Type Severity Reaction Status Date / Time Iodinated Contrast Media Allergy Rash/Hives Verified 12/01/22 08:42 Physical Exam Vitals: Vital Signs Temp Pulse Pulse Resp BP BP Pulse Ox 12/03/22 02:19 60 19 124/57 96 12/03/22 01:30 59 L 30 H 139/54 98 12/03/22 01:00 57 L 38 H 137/55 100 12/03/22 00:30 61 34 H 142/72 96 12/03/22 00:16 62 21 92 L 12/03/22 00:00 96.8 F L 57 L 12 140/81 100 12/02/22 23:30 63 20 135/75 100 12/02/22 23:00 65 22 127/78 99 12/02/22 22:30 69 27 H 140/67 94 L 12/02/22 22:00 64 14 97 12/02/22 21:30 131/76 12/02/22 21:00 66 26 H 124/76 97 12/02/22 20:00 99.3 F 70 25 H 146/80 94 L 12/02/22 19:00 71 24 127/71 94 L 12/02/22 18:00 64 23 132/65 98 12/02/22 17:00 62 24 129/69 99 12/02/22 16:30 64 13 129/69 99 12/02/22 16:00 97.5 F L 68 24 129/69 98 12/02/22 15:30 62 15 119/68 100 12/02/22 15:04 64 12/02/22 15:00 60 20 119/67 100 12/02/22 14:57 64 12/02/22 14:30 64 18 124/61 93 L 12/02/22 14:00 57 L 20 123/60 93 L 12/02/22 13:30 60 14 132/65 98 12/02/22 13:00 58 L 16 133/81 90 L 12/02/22 12:31 54 L 16 131/82 96 12/02/22 10:40 97.5 F L 63 16 135/91 92 L 12/02/22 08:00 84 18 12/02/22 07:00 97.6 F 84 18 143/82 94 L Intake and Output 12/02/22 12/02/22 12/03/22 14:59 22:59 06:59 Intake Total 600 1850 200 Output Total 240 85 Balance 600 1610 115 Intake: IV 600 1650 200 Calcium Gluconate in NaCl 100 1 gm In Saline 1 100ml. bag @ 400 mls/hr IVPB ONCE ONE Rx#:[id number] Dextrose 5% in Water 1, 400 200 000 ml @ 50 mls/hr IV . Q23H GORDY with Sodium Bicarb (1 Meq/ml) 150 ml Rx#:[id number] Sodium Chloride 0.9% 411 036 3845 ml 500 ml @ 999 mls/hr IV .Q31M ONE Rx#:[id number] Vancomycin 1,250 mg In 250 Sodium Chloride 0.9% 250 ml @ 125 mls/hr IVPB Q24HR GORDY Rx#:[id number] Oral 200 Output: Urine 240 85 Other: Voiding Method Urinal Indwelling Catheter Indwelling Catheter GENERAL EXAM: Alert, 77-year-old male, comfortable in no apparent distress. HEAD: Normocephalic and atraumatic EYES: Normal reaction of pupils, equal size. NOSE: Clear with pink turbinates. THROAT: No erythema or exudates. NECK: No masses, no JVD. CHEST: No chest wall deformity. Old sternotomy incision. Left chest wall implanted device LUNGS: Equal air entry with fine right lower lobe inspiratory crackles. No wheeze, rhonchi or dullness. on 3 L nasal cannula. No conversational dyspnea or accessory muscle use.. CVS: S1 and S2 normal with no audible murmur, regular rhythm. No extra heart sounds ABDOMEN: No hepatosplenomegaly, active bowel sounds, no guarding or rigidity. SPINE: No scoliosis or deformity. No flank bruising or meadows's sign. SKIN: No rashes. CENTRAL NERVOUS SYSTEM: No focal deficits, tone is normal in all 4 extremities. EXTREMITIES: There is no peripheral edema, clubbing, or cyanosis. Peripheral pulses are intact. Results - Laboratory Findings CBC and BMP: 12/03/22 05:42 12/03/22 02:50 PT/INR, D-dimer PT 12.0 sec (9.0-12.0) 11/30/22 00:52 INR 1.2 (<1.2) H 11/30/22 00:52 Abnormal lab findings: Abnormal Labs 11/30/22 11/30/22 11/30/22 00:52 00:52 00:52 WBC RBC 3.98 L Hgb 11.7 L Hct 36.3 L MCHC RDW 15.6 H Neutrophils # INR 1.2 H Sodium 133 L Potassium Carbon Dioxide 16 L BUN 27 H Creatinine 1.58 H Glucose 106 H POC Glucose (mg/dL) Plasma Lactic Acid Kyle Calcium AST Alkaline Phosphatase Troponin I Total Protein Albumin 3.4 L Procalcitonin Free T3 pg/mL Urine Protein Urine Glucose (UA) Urine Ketones Urine Blood Ur Leukocyte Esterase Urine RBC Urine WBC Calcium Oxalate Crystal Amorphous Sediment Urine Bacteria Hyaline Casts Urine Mucus 11/30/22 11/30/22 12/01/22 00:52 04:15 02:42 WBC RBC Hgb Hct MCHC RDW Neutrophils # INR Sodium Potassium Carbon Dioxide BUN Creatinine Glucose POC Glucose (mg/dL) Plasma Lactic Acid Kyle Calcium AST Alkaline Phosphatase Troponin I 0.150 H* 0.153 H* Total Protein Albumin Procalcitonin Free T3 pg/mL Urine Protein 2+ H Urine Glucose (UA) 3+ H Urine Ketones 1+ H Urine Blood Ur Leukocyte Esterase Urine RBC Urine WBC Calcium Oxalate Crystal Moderate H Amorphous Sediment Rare H Urine Bacteria Hyaline Casts 197 H Urine Mucus Occasional H 12/01/22 12/01/22 12/01/22 09:31 11:34 11:34 WBC RBC 3.94 L Hgb 11.5 L Hct 36.9 L MCHC RDW Neutrophils # INR Sodium Potassium Carbon Dioxide BUN Creatinine Glucose POC Glucose (mg/dL) Plasma Lactic Acid Kyle Calcium AST Alkaline Phosphatase Troponin I 0.154 H* 0.154 H* Total Protein Albumin Procalcitonin Free T3 pg/mL Urine Protein Urine Glucose (UA) Urine Ketones Urine Blood Ur Leukocyte Esterase Urine RBC Urine WBC Calcium Oxalate Crystal Amorphous Sediment Urine Bacteria Hyaline Casts Urine Mucus 12/01/22 12/02/22 12/02/22 11:34 10:40 11:31 WBC RBC Hgb Hct MCHC RDW Neutrophils # INR Sodium 133 L Potassium 5.4 H Carbon Dioxide 17 L BUN 32 H Creatinine 1.64 H Glucose 127 H POC Glucose (mg/dL) 135 H 132 H Plasma Lactic Acid Kyle Calcium AST Alkaline Phosphatase Troponin I Total Protein Albumin Procalcitonin Free T3 pg/mL Urine Protein Urine Glucose (UA) Urine Ketones Urine Blood Ur Leukocyte Esterase Urine RBC Urine WBC Calcium Oxalate Crystal Amorphous Sediment Urine Bacteria Hyaline Casts Urine Mucus 12/02/22 12/02/22 12/02/22 11:50 13:30 13:30 WBC 10.9 H RBC 4.10 L Hgb 12.1 L Hct MCHC 30.5 L RDW Neutrophils # 8.9 H INR Sodium 134 L Potassium 6.7 H* Carbon Dioxide 15 L BUN 40 H Creatinine 1.85 H Glucose 127 H POC Glucose (mg/dL) Plasma Lactic Acid Kyle Calcium 8.3 L AST 125 H Alkaline Phosphatase 150 H Troponin I 0.110 H* Total Protein 5.9 L Albumin 3.2 L Procalcitonin Free T3 pg/mL Urine Protein Urine Glucose (UA) Urine Ketones Urine Blood Ur Leukocyte Esterase Urine RBC Urine WBC Calcium Oxalate Crystal Amorphous Sediment Urine Bacteria Hyaline Casts Urine Mucus 12/02/22 12/02/22 12/02/22 13:30 13:30 13:30 WBC RBC Hgb Hct MCHC RDW Neutrophils # INR Sodium Potassium Carbon Dioxide BUN Creatinine Glucose POC Glucose (mg/dL) Plasma Lactic Acid Kyle 4.0 H* Calcium AST Alkaline Phosphatase Troponin I Total Protein Albumin Procalcitonin 0.20 H Free T3 pg/mL 2.7 L Urine Protein Urine Glucose (UA) Urine Ketones Urine Blood Ur Leukocyte Esterase Urine RBC Urine WBC Calcium Oxalate Crystal Amorphous Sediment Urine Bacteria Hyaline Casts Urine Mucus 12/02/22 12/02/22 12/02/22 17:03 18:45 20:28 WBC RBC Hgb Hct MCHC RDW Neutrophils # INR Sodium Potassium Carbon Dioxide BUN Creatinine Glucose POC Glucose (mg/dL) 121 H Plasma Lactic Acid Kyle 3.7 H* Calcium AST Alkaline Phosphatase Troponin I Total Protein Albumin Procalcitonin Free T3 pg/mL Urine Protein 1+ H Urine Glucose (UA) 2+ H Urine Ketones Urine Blood Trace H Ur Leukocyte Esterase Trace H Urine RBC 40 H Urine WBC 6 H Calcium Oxalate Crystal Amorphous Sediment Urine Bacteria Rare H Hyaline Casts 3 H Urine Mucus Few H 12/02/22 22:15 WBC RBC Hgb Hct MCHC RDW Neutrophils # INR Sodium Potassium Carbon Dioxide BUN Creatinine Glucose POC Glucose (mg/dL) Plasma Lactic Acid Kyle 2.4 H* Calcium AST Alkaline Phosphatase Troponin I Total Protein Albumin Procalcitonin Free T3 pg/mL Urine Protein Urine Glucose (UA) Urine Ketones Urine Blood Ur Leukocyte Esterase Urine RBC Urine WBC Calcium Oxalate Crystal Amorphous Sediment Urine Bacteria Hyaline Casts Urine Mucus - Diagnostic Findings Chest x-ray: image reviewed CT scan - chest: image reviewed Assessment and Plan Assessment: Abdominal and bilateral flank pain, currently under investigation. CT of the chest/abdomen/pelvis shows no acute intra-abdominal process. Acute on chronic hypoxemic respiratory failure, possibly multifactorial related to a developing right lower lobe pneumonia and/or mild CHF exacerbation with reduced ejection fraction. Currently on 3 L per minute nasal cannula. Chest x- ray from yesterday morning shows possible developing right lower lobe infiltrate. Procalcitonin level is mildly elevated at 0.2. Chest/abdominal/pelvic CT also showed evidence of heart failure with cardiomegaly, bilateral pleural effusions, and pulmonary vascular congestion. Chronic obstructive pulmonary disease, stable Hyperkalemia, improved Metabolic acidosis secondary to lactic acidemia, improving Elevated troponins, possibly related supplies/demand mismatch Ischemic cardiomyopathy, with a baseline ejection fraction of less than 20%, and prior episodes of ventricular tachycardia status post AICD/pacemaker insertion Acute on chronic kidney disease, creatinine is 1.85 Benign essential hypertension Hyperlipidemia Coronary artery disease with prior myocardial infarction and cardiac stents x5 Ascending aortic aneurysm measuring 4.6 cm Degenerative joint disease Obstructive sleep apnea History of nephrolithiasis History of cholecystectomy Ex-smoker plan: Patient's medications, labs, imaging were reviewed Continue supplemental oxygen Continue empiric antibiotics Procalcitonin level was mildly elevated at 0.2 Blood cultures are pending Trend lactic acid levels, which are improving after fluid resuscitation with a total of 2 L normal saline bolus. continue sodium bicarb infusion monitor electrolytes, especially potassium I am going to restart the patient's Lasix 40 mg twice a day repeat chest x-ray in a.m. patient will be monitored in the intensive care unit I have personally seen and examined the patient, performed the documentation and the assessment and plan as written. Number of minutes spent on the visit:20 This is a joint evaluation that was done along with a nurse practitioner. The patient got transferred to the intensive care unit yesterday and he was having significant abdominal pain and the patient was having episodes of bradycardia and he looks quite diaphoretic and weak. He also had lactic acid levels being elevated and the highest level was at 4.0. He was acidotic. He was started on bicarb infusion. Bicarb is still running at a rate of 50 mL an hour. Follow-up serum bicarb from this morning is up to 18. Lactic acid level has dropped onto 2.7. A repeat CAT scan of the chest abdomen and pelvis was done. It was essentially consistent with CHF. No significant abnormalities to explain the patient's abdominal pain. The patient a nonobstructive right renal calculus. There was dilatation of the biliary system which was essentially similar to before. There was background emphysema. No definite acute process within the abdomen or pelvis. This was done without contrast based on the patient's renal failure. The patient also trace mitral pleural effusions and ascending thoracic aorta was measuring 4.9 cm in size. WBC count is at 11.2 with a hemoglobin of 10.7 and a platelet count of 184. BUN is 44 with a creatinine of 1.6. Most recent lactic acid level is at 2.7. Pro-calcitonin level was low at 0.2. Covid 19 testing was negative. UA was negative. Or the time being, we'll continuing the bicarb infusion. Hold Lasix for now. Pacemaker was interrogated. Patient is on empiric antibiotic coverage with Zosyn and vancomycin pending cultures. We'll keep in ICU for now. He is tolerating diet and he was given regular heart healthy diet. Evaluation was done in more than 30 minutes. Time with Patient: Greater than 30
[2022-12-03 05:56] LABS: Basophils % (A) 0 %; Eosinophils % (A) 0 %; HCT 33.8 % (39.0-53.0); HGB 10.5 gm/dL (13.0-17.5); Hypochromasia Moderate; Lymphocytes % (A) 9 %; MCH 28.7 pg (25.0-35.0); MCHC 31.1 g/dL (31.0-37.0); MCV 92.1 fL (80.0-100.0); Mean Platelet Volume 9.7; Monocytes # (A) 0.8 k/uL (0-1.0); Monocytes % (A) 8 %; Neutrophils % (A) 80 %; Platelet Count 184 k/uL (150-450); RBC 3.67 m/uL (4.30-5.90); RDW 15.5 % (11.5-15.5); WBC 11.2 k/uL (3.8-10.6)
[2022-12-03 07:07] LABS: Glucose,Whole Blood 99 mg/dL (70-110)
--- NOTE | 2022-12-03 07:12 | XR ---
EXAMINATION TYPE: XR chest 1V portable DATE OF EXAM: 12/03/2022 Comparison: 12/02/2022 Clinical History: 77-year-old male possibly developing right lower lobe infiltrate Findings: Left anterior chest wall ICD generator with right atrial, right ventricular, and coronary sinus leads . Heart remains mildly enlarged. Mild hyperinflation. Partially visualized ACDF hardware. Median ster notomy wires are present. Mild interstitial prominence. Small effusions, left greater than right slig htly increased. Retrocardiac opacity persists. End-stage degenerative change both shoulders. Impression: Correlate for developing mild pulmonary vascular congestion. There are small left greater than right pleural effusions with adjacent atelectasis and/or consolidation, slightly worsened now on the right.
[2022-12-03] MEDS ORDERED: IPRATROPIUM-ALBUTEROL 3 ML NEB INHALATION SCH (08:00)
--- NOTE | 2022-12-03 09:24 | P.PN ---
Subjective Progress Note Date: 12/03/22 The patient is a 77-year-old male who follows in the office with Dr. BETI Chisholm. He is currently admitted to the hospital with abdominal discomfort. He was seen and evaluated on the medical floor, after being consulted for abnormal troponins. There are flat trend and not indicative of ACS. A team was notified later that the patient had an episode of presyncope with associated bradycardia and diaphoresis. He was subsequently transferred to the ICU. Chest x-ray showed mild right lower lobe infiltrate and small left pleural effusion. Device was interrogated. No evidence of device malfunction or arrhythmia. The patient was interviewed and examined lying in bed. He states he is feeling better today. He still has some flank discomfort. No chest pain or chest pressure. No difficulty breathing. GENERAL: Ill-appearing, well-nourished and in no acute distress. NECK: Supple without JVD or thyromegaly. LUNGS: Breath sounds diminished to auscultation bilaterally. Respiration equal and unlabored. No wheezes, rales or rhonchi. HEART: Regular rate and rhythm without murmurs, rubs or gallops. S1 and S2 heard. EXTREMITIES: Normal range of motion, no edema. No clubbing or cyanosis. Peripheral pulses intact and strong. VITALS: Blood pressure 130/67, SpO2 95% on 2 L nasal cannula, respiratory rate 18, pulse 53 TELEMETRY: Sinus rhythm. Lower rate settings set 50. LABS: WBC 11.2, hemoglobin 10.5, hematocrit 33.8, platelet 184, sodium 134, potassium 4.9, BUN 44, creatinine 1.63, lactic acid 2.7, AST 58, AST 40, TSH 2.3 IMPRESSION: Abdominal discomfort Elevated troponins, not indicative of ACS Chronic kidney disease Chronic congestive heart failure with reduced ejection fraction Ascending aortic aneurysm Coronary artery disease with prior CABG and stenting Ischemic cardiomyopathy status post AICD Ventricular tachycardia PLAN: Continue home cardiac medications No further recommendations from the cardiac standpoint I am dictating on behalf of Dr Hunter Perez's history/physical and assessment/plan. Objective - Vital Signs Vital signs: Vital Signs Temp 97 F L 12/03/22 04:00 Pulse 53 L 12/03/22 06:00 Resp 18 12/03/22 06:00 BP 130/67 12/03/22 06:00 Pulse Ox 100 12/03/22 08:48 FiO2 Intake & Output 12/02/22 12/03/22 12/03/22 18:59 06:59 18:59 Intake Total 1250 2100 Output Total 150 735 Balance 1100 1365 Weight 70 kg Intake: IV 1050 2100 Calcium Gluconate in NaCl 100 1 gm In Saline 1 100ml. bag @ 400 mls/hr IVPB ONCE ONE Rx#:[id number] Dextrose 5% in Water 1, 200 600 000 ml @ 50 mls/hr IV . Q23H GORDY with Sodium Bicarb (1 Meq/ml) 150 ml Rx#:[id number] Sodium Chloride 0.9% 154 172 2399 ml 500 ml @ 999 mls/hr IV .Q31M ONE Rx#:[id number] Vancomycin 1,250 mg In 250 Sodium Chloride 0.9% 250 ml @ 125 mls/hr IVPB Q24HR GRODY Rx#:[id number] Oral 200 Output: Urine 150 735 Other: Voiding Method Indwelling Catheter Indwelling Catheter - Labs CBC & Chem 7: 12/03/22 05:42 12/03/22 02:50 Labs: Abnormal Lab Results - Last 24 Hours (Table) 12/02/22 12/02/22 12/02/22 Range/Units 10:40 11:31 11:50 WBC (3.8-10.6) k/uL RBC (4.30-5.90) m/uL Hgb (13.0-17.5) gm/dL Hct (39.0-53.0) % MCHC (31.0-37.0) g/dL Neutrophils # (1.3-7.7) k/uL Sodium 134 L (137-145) mmol/L Potassium 6.7 H* (3.5-5.1) mmol/L Carbon Dioxide 15 L (22-30) mmol/L BUN 40 H (9-20) mg/dL Creatinine 1.85 H (0.66-1.25) mg/dL Glucose 127 H (74-99) mg/dL POC Glucose (mg/dL) 135 H 132 H (70-110) mg/dL Plasma Lactic Acid Kyle (0.7-2.0) mmol/L Calcium 8.3 L (8.4-10.2) mg/dL AST 125 H (17-59) U/L Alkaline Phosphatase 150 H (38-126) U/L Troponin I (0.000-0.034) ng/mL C-Reactive Protein (<1.0) mg/dL Total Protein 5.9 L (6.3-8.2) g/dL Albumin 3.2 L (3.5-5.0) g/dL Procalcitonin (0.02-0.09) ng/mL Free T3 pg/mL (2.8-5.3) pg/ml Urine Protein (Negative) Urine Glucose (UA) (Negative) Urine Blood (Negative) Ur Leukocyte Esterase (Negative) Urine RBC (0-5) /hpf Urine WBC (0-5) /hpf Urine Bacteria (None) /hpf Hyaline Casts (0-2) /lpf Urine Mucus (None) /hpf 12/02/22 12/02/22 12/02/22 Range/Units 13:30 13:30 13:30 WBC 10.9 H (3.8-10.6) k/uL RBC 4.10 L (4.30-5.90) m/uL Hgb 12.1 L (13.0-17.5) gm/dL Hct (39.0-53.0) % MCHC 30.5 L (31.0-37.0) g/dL Neutrophils # 8.9 H (1.3-7.7) k/uL Sodium (137-145) mmol/L Potassium (3.5-5.1) mmol/L Carbon Dioxide (22-30) mmol/L BUN (9-20) mg/dL Creatinine (0.66-1.25) mg/dL Glucose (74-99) mg/dL POC Glucose (mg/dL) (70-110) mg/dL Plasma Lactic Acid Kyle (0.7-2.0) mmol/L Calcium (8.4-10.2) mg/dL AST (17-59) U/L Alkaline Phosphatase (38-126) U/L Troponin I 0.110 H* (0.000-0.034) ng/mL C-Reactive Protein (<1.0) mg/dL Total Protein (6.3-8.2) g/dL Albumin (3.5-5.0) g/dL Procalcitonin 0.20 H (0.02-0.09) ng/mL Free T3 pg/mL (2.8-5.3) pg/ml Urine Protein (Negative) Urine Glucose (UA) (Negative) Urine Blood (Negative) Ur Leukocyte Esterase (Negative) Urine RBC (0-5) /hpf Urine WBC (0-5) /hpf Urine Bacteria (None) /hpf Hyaline Casts (0-2) /lpf Urine Mucus (None) /hpf 12/02/22 12/02/22 12/02/22 Range/Units 13:30 13:30 17:03 WBC (3.8-10.6) k/uL RBC (4.30-5.90) m/uL Hgb (13.0-17.5) gm/dL Hct (39.0-53.0) % MCHC (31.0-37.0) g/dL Neutrophils # (1.3-7.7) k/uL Sodium (137-145) mmol/L Potassium (3.5-5.1) mmol/L Carbon Dioxide (22-30) mmol/L BUN (9-20) mg/dL Creatinine (0.66-1.25) mg/dL Glucose (74-99) mg/dL POC Glucose (mg/dL) (70-110) mg/dL Plasma Lactic Acid Kyle 4.0 H* 3.7 H* (0.7-2.0) mmol/L Calcium (8.4-10.2) mg/dL AST (17-59) U/L Alkaline Phosphatase (38-126) U/L Troponin I (0.000-0.034) ng/mL C-Reactive Protein (<1.0) mg/dL Total Protein (6.3-8.2) g/dL Albumin (3.5-5.0) g/dL Procalcitonin (0.02-0.09) ng/mL Free T3 pg/mL 2.7 L (2.8-5.3) pg/ml Urine Protein (Negative) Urine Glucose (UA) (Negative) Urine Blood (Negative) Ur Leukocyte Esterase (Negative) Urine RBC (0-5) /hpf Urine WBC (0-5) /hpf Urine Bacteria (None) /hpf Hyaline Casts (0-2) /lpf Urine Mucus (None) /hpf 12/02/22 12/02/22 12/02/22 Range/Units 18:45 20:28 22:15 WBC (3.8-10.6) k/uL RBC (4.30-5.90) m/uL Hgb (13.0-17.5) gm/dL Hct (39.0-53.0) % MCHC (31.0-37.0) g/dL Neutrophils # (1.3-7.7) k/uL Sodium (137-145) mmol/L Potassium (3.5-5.1) mmol/L Carbon Dioxide (22-30) mmol/L BUN (9-20) mg/dL Creatinine (0.66-1.25) mg/dL Glucose (74-99) mg/dL POC Glucose (mg/dL) 121 H (70-110) mg/dL Plasma Lactic Acid Kyle 2.4 H* (0.7-2.0) mmol/L Calcium (8.4-10.2) mg/dL AST (17-59) U/L Alkaline Phosphatase (38-126) U/L Troponin I (0.000-0.034) ng/mL C-Reactive Protein (<1.0) mg/dL Total Protein (6.3-8.2) g/dL Albumin (3.5-5.0) g/dL Procalcitonin (0.02-0.09) ng/mL Free T3 pg/mL (2.8-5.3) pg/ml Urine Protein 1+ H (Negative) Urine Glucose (UA) 2+ H (Negative) Urine Blood Trace H (Negative) Ur Leukocyte Esterase Trace H (Negative) Urine RBC 40 H (0-5) /hpf Urine WBC 6 H (0-5) /hpf Urine Bacteria Rare H (None) /hpf Hyaline Casts 3 H (0-2) /lpf Urine Mucus Few H (None) /hpf 12/03/22 12/03/22 12/03/22 Range/Units 02:50 02:50 05:42 WBC 11.2 H (3.8-10.6) k/uL RBC 3.67 L (4.30-5.90) m/uL Hgb 10.5 L (13.0-17.5) gm/dL Hct 33.8 L (39.0-53.0) % MCHC (31.0-37.0) g/dL Neutrophils # 9.0 H (1.3-7.7) k/uL Sodium 134 L (137-145) mmol/L Potassium (3.5-5.1) mmol/L Carbon Dioxide 18 L (22-30) mmol/L BUN 44 H (9-20) mg/dL Creatinine 1.63 H (0.66-1.25) mg/dL Glucose (74-99) mg/dL POC Glucose (mg/dL) (70-110) mg/dL Plasma Lactic Acid Kyle 2.7 H* (0.7-2.0) mmol/L Calcium 8.3 L (8.4-10.2) mg/dL AST (17-59) U/L Alkaline Phosphatase 141 H (38-126) U/L Troponin I (0.000-0.034) ng/mL C-Reactive Protein 3.1 H (<1.0) mg/dL Total Protein 5.8 L (6.3-8.2) g/dL Albumin 3.1 L (3.5-5.0) g/dL Procalcitonin (0.02-0.09) ng/mL Free T3 pg/mL (2.8-5.3) pg/ml Urine Protein (Negative) Urine Glucose (UA) (Negative) Urine Blood (Negative) Ur Leukocyte Esterase (Negative) Urine RBC (0-5) /hpf Urine WBC (0-5) /hpf Urine Bacteria (None) /hpf Hyaline Casts (0-2) /lpf Urine Mucus (None) /hpf
[2022-12-03] MEDS: HEPARIN SODIUM,PORCINE/PF 5,000 UNIT/0.5 ML SYRINGE SQ SCH ×2 (09:44→20:39)
[2022-12-03] MEDS: SOTALOL 80 MG TAB PO SCH ×2 (09:45→20:39)
[2022-12-03] MEDS: carvediloL 3.125 MG TAB PO SCH ×2 (09:45→15:53)
[2022-12-03] MEDS: CLOPIDOGREL 75 MG TAB PO SCH (09:45)
[2022-12-03] MEDS: CHOLECALCIFEROL 25 MCG (1000 IU) TABLET PO SCH (09:45)
[2022-12-03] MEDS: ASPIRIN 81 MG PO SCH (09:45)
[2022-12-03] MEDS: PANTOPRAZOLE 40 MG/10 ML VIAL IV SCH (09:45)
[2022-12-03] MEDS: ASCORBIC ACID 500 MG TAB PO SCH (09:47)
--- NOTE | 2022-12-03 12:59 | P.PN ---
Subjective Progress Note Date: 12/03/22 Principal diagnosis: Pneumonia Patient is a 77-year-old male with a past medical history significant for hypertension hyperlipidemia coronary artery disease COPD sleep apnea presented to hospital with abdominal and back pain which is bilateral effusion possible atelectasis/pneumonia and cystitis On today's evaluation that is 12/03/2022, the patient is afebrile the patient is hemodynamically stable not requiring any pressor support is currently breathing comfortably on 2 L nasal cannula oxygen, patient denies having any chest pain occasional cough but no sputum production, some vague abdominal pain and nausea but no vomiting and no diarrhea Objective - Vital Signs Vital signs: Vital Signs Temp 97 F L 12/03/22 04:00 Pulse 53 L 12/03/22 06:00 Resp 18 12/03/22 06:00 BP 130/67 12/03/22 06:00 Pulse Ox 100 12/03/22 08:48 FiO2 Intake & Output 12/02/22 12/03/22 12/03/22 18:59 06:59 18:59 Intake Total 1250 2100 Output Total 150 735 Balance 1100 1365 Weight 70 kg Intake: IV 1050 2100 Calcium Gluconate in NaCl 100 1 gm In Saline 1 100ml. bag @ 400 mls/hr IVPB ONCE ONE Rx#:[id number] Dextrose 5% in Water 1, 200 600 000 ml @ 50 mls/hr IV . Q23H GORDY with Sodium Bicarb (1 Meq/ml) 150 ml Rx#:[id number] Sodium Chloride 0.9% 951 592 1490 ml 500 ml @ 999 mls/hr IV .Q31M ONE Rx#:[id number] Vancomycin 1,250 mg In 250 Sodium Chloride 0.9% 250 ml @ 125 mls/hr IVPB Q24HR GORDY Rx#:[id number] Oral 200 Output: Urine 150 735 Other: Voiding Method Indwelling Catheter Indwelling Catheter - Exam GENERAL DESCRIPTION: An elderly male lying in bed in no distress RESPIRATORY SYSTEM: Unlabored breathing , decreased breath sounds at bases HEART: S1 S2 regular rate and rhythm , ABDOMEN: Soft , no tenderness EXTREMITIES: No edema feet - Labs CBC & Chem 7: 12/03/22 05:42 12/03/22 02:50 Labs: Abnormal Lab Results - Last 24 Hours (Table) 12/02/22 12/02/22 12/02/22 Range/Units 10:40 11:31 11:50 WBC (3.8-10.6) k/uL RBC (4.30-5.90) m/uL Hgb (13.0-17.5) gm/dL Hct (39.0-53.0) % MCHC (31.0-37.0) g/dL Neutrophils # (1.3-7.7) k/uL Sodium 134 L (137-145) mmol/L Potassium 6.7 H* (3.5-5.1) mmol/L Carbon Dioxide 15 L (22-30) mmol/L BUN 40 H (9-20) mg/dL Creatinine 1.85 H (0.66-1.25) mg/dL Glucose 127 H (74-99) mg/dL POC Glucose (mg/dL) 135 H 132 H (70-110) mg/dL Plasma Lactic Acid Kyle (0.7-2.0) mmol/L Calcium 8.3 L (8.4-10.2) mg/dL AST 125 H (17-59) U/L Alkaline Phosphatase 150 H (38-126) U/L Troponin I (0.000-0.034) ng/mL C-Reactive Protein (<1.0) mg/dL Total Protein 5.9 L (6.3-8.2) g/dL Albumin 3.2 L (3.5-5.0) g/dL Procalcitonin (0.02-0.09) ng/mL Free T3 pg/mL (2.8-5.3) pg/ml Urine Protein (Negative) Urine Glucose (UA) (Negative) Urine Blood (Negative) Ur Leukocyte Esterase (Negative) Urine RBC (0-5) /hpf Urine WBC (0-5) /hpf Urine Bacteria (None) /hpf Hyaline Casts (0-2) /lpf Urine Mucus (None) /hpf 12/02/22 12/02/22 12/02/22 Range/Units 13:30 13:30 13:30 WBC 10.9 H (3.8-10.6) k/uL RBC 4.10 L (4.30-5.90) m/uL Hgb 12.1 L (13.0-17.5) gm/dL Hct (39.0-53.0) % MCHC 30.5 L (31.0-37.0) g/dL Neutrophils # 8.9 H (1.3-7.7) k/uL Sodium (137-145) mmol/L Potassium (3.5-5.1) mmol/L Carbon Dioxide (22-30) mmol/L BUN (9-20) mg/dL Creatinine (0.66-1.25) mg/dL Glucose (74-99) mg/dL POC Glucose (mg/dL) (70-110) mg/dL Plasma Lactic Acid Kyle (0.7-2.0) mmol/L Calcium (8.4-10.2) mg/dL AST (17-59) U/L Alkaline Phosphatase (38-126) U/L Troponin I 0.110 H* (0.000-0.034) ng/mL C-Reactive Protein (<1.0) mg/dL Total Protein (6.3-8.2) g/dL Albumin (3.5-5.0) g/dL Procalcitonin 0.20 H (0.02-0.09) ng/mL Free T3 pg/mL (2.8-5.3) pg/ml Urine Protein (Negative) Urine Glucose (UA) (Negative) Urine Blood (Negative) Ur Leukocyte Esterase (Negative) Urine RBC (0-5) /hpf Urine WBC (0-5) /hpf Urine Bacteria (None) /hpf Hyaline Casts (0-2) /lpf Urine Mucus (None) /hpf 12/02/22 12/02/22 12/02/22 Range/Units 13:30 13:30 17:03 WBC (3.8-10.6) k/uL RBC (4.30-5.90) m/uL Hgb (13.0-17.5) gm/dL Hct (39.0-53.0) % MCHC (31.0-37.0) g/dL Neutrophils # (1.3-7.7) k/uL Sodium (137-145) mmol/L Potassium (3.5-5.1) mmol/L Carbon Dioxide (22-30) mmol/L BUN (9-20) mg/dL Creatinine (0.66-1.25) mg/dL Glucose (74-99) mg/dL POC Glucose (mg/dL) (70-110) mg/dL Plasma Lactic Acid Kyle 4.0 H* 3.7 H* (0.7-2.0) mmol/L Calcium (8.4-10.2) mg/dL AST (17-59) U/L Alkaline Phosphatase (38-126) U/L Troponin I (0.000-0.034) ng/mL C-Reactive Protein (<1.0) mg/dL Total Protein (6.3-8.2) g/dL Albumin (3.5-5.0) g/dL Procalcitonin (0.02-0.09) ng/mL Free T3 pg/mL 2.7 L (2.8-5.3) pg/ml Urine Protein (Negative) Urine Glucose (UA) (Negative) Urine Blood (Negative) Ur Leukocyte Esterase (Negative) Urine RBC (0-5) /hpf Urine WBC (0-5) /hpf Urine Bacteria (None) /hpf Hyaline Casts (0-2) /lpf Urine Mucus (None) /hpf 12/02/22 12/02/22 12/02/22 Range/Units 18:45 20:28 22:15 WBC (3.8-10.6) k/uL RBC (4.30-5.90) m/uL Hgb (13.0-17.5) gm/dL Hct (39.0-53.0) % MCHC (31.0-37.0) g/dL Neutrophils # (1.3-7.7) k/uL Sodium (137-145) mmol/L Potassium (3.5-5.1) mmol/L Carbon Dioxide (22-30) mmol/L BUN (9-20) mg/dL Creatinine (0.66-1.25) mg/dL Glucose (74-99) mg/dL POC Glucose (mg/dL) 121 H (70-110) mg/dL Plasma Lactic Acid Kyle 2.4 H* (0.7-2.0) mmol/L Calcium (8.4-10.2) mg/dL AST (17-59) U/L Alkaline Phosphatase (38-126) U/L Troponin I (0.000-0.034) ng/mL C-Reactive Protein (<1.0) mg/dL Total Protein (6.3-8.2) g/dL Albumin (3.5-5.0) g/dL Procalcitonin (0.02-0.09) ng/mL Free T3 pg/mL (2.8-5.3) pg/ml Urine Protein 1+ H (Negative) Urine Glucose (UA) 2+ H (Negative) Urine Blood Trace H (Negative) Ur Leukocyte Esterase Trace H (Negative) Urine RBC 40 H (0-5) /hpf Urine WBC 6 H (0-5) /hpf Urine Bacteria Rare H (None) /hpf Hyaline Casts 3 H (0-2) /lpf Urine Mucus Few H (None) /hpf 12/03/22 12/03/22 12/03/22 Range/Units 02:50 02:50 05:42 WBC 11.2 H (3.8-10.6) k/uL RBC 3.67 L (4.30-5.90) m/uL Hgb 10.5 L (13.0-17.5) gm/dL Hct 33.8 L (39.0-53.0) % MCHC (31.0-37.0) g/dL Neutrophils # 9.0 H (1.3-7.7) k/uL Sodium 134 L (137-145) mmol/L Potassium (3.5-5.1) mmol/L Carbon Dioxide 18 L (22-30) mmol/L BUN 44 H (9-20) mg/dL Creatinine 1.63 H (0.66-1.25) mg/dL Glucose (74-99) mg/dL POC Glucose (mg/dL) (70-110) mg/dL Plasma Lactic Acid Kyle 2.7 H* (0.7-2.0) mmol/L Calcium 8.3 L (8.4-10.2) mg/dL AST (17-59) U/L Alkaline Phosphatase 141 H (38-126) U/L Troponin I (0.000-0.034) ng/mL C-Reactive Protein 3.1 H (<1.0) mg/dL Total Protein 5.8 L (6.3-8.2) g/dL Albumin 3.1 L (3.5-5.0) g/dL Procalcitonin (0.02-0.09) ng/mL Free T3 pg/mL (2.8-5.3) pg/ml Urine Protein (Negative) Urine Glucose (UA) (Negative) Urine Blood (Negative) Ur Leukocyte Esterase (Negative) Urine RBC (0-5) /hpf Urine WBC (0-5) /hpf Urine Bacteria (None) /hpf Hyaline Casts (0-2) /lpf Urine Mucus (None) /hpf Assessment and Plan (1) Pneumonia Current Visit: Yes Status: Acute Code(s): J18.9 - PNEUMONIA, UNSPECIFIED ORGANISM SNOMED Code(s): 379257454 Plan: 1patient presented hospital with abdominal pain did have evidence of effusion no acute abdominal date abdominal pelvis except evidence of bilateral effusion and the patient did have slightly respiratory compromise mild cough concern for possible pneumonia not entirely excluded with the predominant abdominal symptoms and evidence of elevated lactic acid we will need to cover for the enteric gram- negative both aerobes and anaerobes 2-patient with borderline kidney function high risk of nephrotoxicity from vancomycin 3-patient did have elevated CRP however procalcitonin level blood cultures have been obtained and results are pending 4-patient to continue with the Zosyn and monitor clinical course closely Time with Patient: Less than 30
--- NOTE | 2022-12-03 14:10 | P.PN ---
Subjective Progress Note Date: 12/03/22 The patient is a 77-year-old male with a known history of severe ischemic cardiac myopathy, status post ICD implantation, status post CABG and PCI, he underwent PCI of the left main and circumflex in [place] [address] Chisholm with mechanical support. He has a patent WHITE to the LAD and patent radial to the right PDA was occluded SVG to the PLV who presented to the hospital because of abdominal pain and nausea and vomiting. Patient stated that he has been having abdominal pain for last couple of days, pain is located in the upper part of the abdomen and is going to his back. Denies any chest pain. Does complain of worsening shortness of breath. Because of the abdominal pain patient came to the ER Initial lab work in the ER showed WBC 6.6, hemoglobin 11.7, platelet count 258, sodium 133, potassium 5.1, BUN 27, creatinine 1.58 CT Abdomen pelvis showed moderate left and small right pleural effusions, left lower lobe atelectasis, partially visualized aneurysmal aorta of 4.6 cm Patient was admitted to medicine service for further evaluation and treatment 12/02. Patient seen and examined. Patient had rapid response called because of feeling of being cold and clammy, patient also having pain in his belly. Complaining of shortness of breath at rest. When the aide team arrived, patient blood pressure was stable but heart rate dipped into 30s. EKGs was ordered, stat CBC CMP, chest x-ray ordered. Patient was transferred to ICU 12/03. Patient seen and examined. Blood work done this morning showed white count 11.2, hemoglobin 10.5. Sodium 134, potassium 4.9, chloride 105, BUN 44, creatinine 1.63 Patient states he feels much better. States flank pain is also improved. States she has poor appetite, discussed with him regarding the need for him to eat REVIEW OF SYSTEMS: CONSTITUTIONAL: Denies lethargic, complaining of malaise CARDIOVASCULAR: No chest pain, PULMONARY: Difficulty in breathing improving GASTROINTESTINAL: No diarrhea,. Abdominal pain improved NEUROLOGICAL: No headaches, no weakness, PHYSICAL EXAMINATION: GENERAL: The patient is alert and oriented x3, not in any acute distress HEENT: Pupils are round and equally reacting to light. EOMI. No scleral icterus. No conjunctival pallor. Normocephalic, atraumatic. No pharyngeal erythema. No thyromegaly. CARDIOVASCULAR: S1 and S2 present. No murmurs, rubs, or gallops. PULMONARY: Coarse breath sounds bilaterally ABDOMEN: Soft, nontender, nondistended, normoactive bowel sounds. No palpable organomegaly. MUSCULOSKELETAL: No joint swelling or deformity. EXTREMITIES: No cyanosis, clubbing, or pedal edema. Extremities are cold to touch NEUROLOGICAL: Gross neurological examination did not reveal any focal deficits. SKIN: No rashes. Assessment and plan Acute on chronic hypoxic respiratory failure Bradycardia Bacterial Pneumonia Hyperkalemia Abdominal pain Nausea and vomiting Elevated troponin History of ischemic cardiomyopathy with most recent EF of 20% History of CABG with stenting Permanent pacemaker AICD in 2019 History of fibromyalgia Hyperlipidemia COPD, not an exacerbation hypertension Monitor vital signs Monitor CBC Monitor CMP Continue telemetry monitoring Follow-up on blood cultures Trend lactic acid levels Low potassium diet Continue IV Zosyn Follow-up on ID recommendations Critical care following Follow-up on cardiology recommendations Objective - Vital Signs Vital signs: Vital Signs Temp 97 F L 12/03/22 04:00 Pulse 53 L 12/03/22 06:00 Resp 18 12/03/22 06:00 BP 130/67 12/03/22 06:00 Pulse Ox 100 12/03/22 08:48 FiO2 Intake & Output 12/02/22 12/03/22 12/03/22 18:59 06:59 18:59 Intake Total 1250 2100 Output Total 150 735 Balance 1100 1365 Weight 70 kg Intake: IV 1050 2100 Calcium Gluconate in NaCl 100 1 gm In Saline 1 100ml. bag @ 400 mls/hr IVPB ONCE ONE Rx#:[id number] Dextrose 5% in Water 1, 200 600 000 ml @ 50 mls/hr IV . Q23H GORDY with Sodium Bicarb (1 Meq/ml) 150 ml Rx#:[id number] Sodium Chloride 0.9% 177 254 2028 ml 500 ml @ 999 mls/hr IV .Q31M ONE Rx#:[id number] Vancomycin 1,250 mg In 250 Sodium Chloride 0.9% 250 ml @ 125 mls/hr IVPB Q24HR GORYD Rx#:[id number] Oral 200 Output: Urine 150 735 Other: Voiding Method Indwelling Catheter Indwelling Catheter - Labs CBC & Chem 7: 12/03/22 05:42 12/03/22 02:50 Labs: Abnormal Lab Results - Last 24 Hours (Table) 06/21/23 06/21/23 06/21/23 Range/Units 10:40 11:31 11:50 WBC (3.8-10.6) k/uL RBC (4.30-5.90) m/uL Hgb (13.0-17.5) gm/dL Hct (39.0-53.0) % MCHC (31.0-37.0) g/dL Neutrophils # (1.3-7.7) k/uL Sodium 134 L (137-145) mmol/L Potassium 6.7 H* (3.5-5.1) mmol/L Carbon Dioxide 15 L (22-30) mmol/L BUN 40 H (9-20) mg/dL Creatinine 1.85 H (0.66-1.25) mg/dL Glucose 127 H (74-99) mg/dL POC Glucose (mg/dL) 135 H 132 H (70-110) mg/dL Plasma Lactic Acid Kyle (0.7-2.0) mmol/L Calcium 8.3 L (8.4-10.2) mg/dL AST 125 H (17-59) U/L Alkaline Phosphatase 150 H (38-126) U/L Troponin I (0.000-0.034) ng/mL C-Reactive Protein (<1.0) mg/dL Total Protein 5.9 L (6.3-8.2) g/dL Albumin 3.2 L (3.5-5.0) g/dL Procalcitonin (0.02-0.09) ng/mL Free T3 pg/mL (2.8-5.3) pg/ml Urine Protein (Negative) Urine Glucose (UA) (Negative) Urine Blood (Negative) Ur Leukocyte Esterase (Negative) Urine RBC (0-5) /hpf Urine WBC (0-5) /hpf Urine Bacteria (None) /hpf Hyaline Casts (0-2) /lpf Urine Mucus (None) /hpf 12/02/22 12/02/22 12/02/22 Range/Units 13:30 13:30 13:30 WBC 10.9 H (3.8-10.6) k/uL RBC 4.10 L (4.30-5.90) m/uL Hgb 12.1 L (13.0-17.5) gm/dL Hct (39.0-53.0) % MCHC 30.5 L (31.0-37.0) g/dL Neutrophils # 8.9 H (1.3-7.7) k/uL Sodium (137-145) mmol/L Potassium (3.5-5.1) mmol/L Carbon Dioxide (22-30) mmol/L BUN (9-20) mg/dL Creatinine (0.66-1.25) mg/dL Glucose (74-99) mg/dL POC Glucose (mg/dL) (70-110) mg/dL Plasma Lactic Acid Kyle (0.7-2.0) mmol/L Calcium (8.4-10.2) mg/dL AST (17-59) U/L Alkaline Phosphatase (38-126) U/L Troponin I 0.110 H* (0.000-0.034) ng/mL C-Reactive Protein (<1.0) mg/dL Total Protein (6.3-8.2) g/dL Albumin (3.5-5.0) g/dL Procalcitonin 0.20 H (0.02-0.09) ng/mL Free T3 pg/mL (2.8-5.3) pg/ml Urine Protein (Negative) Urine Glucose (UA) (Negative) Urine Blood (Negative) Ur Leukocyte Esterase (Negative) Urine RBC (0-5) /hpf Urine WBC (0-5) /hpf Urine Bacteria (None) /hpf Hyaline Casts (0-2) /lpf Urine Mucus (None) /hpf 12/02/22 12/02/22 12/02/22 Range/Units 13:30 13:30 17:03 WBC (3.8-10.6) k/uL RBC (4.30-5.90) m/uL Hgb (13.0-17.5) gm/dL Hct (39.0-53.0) % MCHC (31.0-37.0) g/dL Neutrophils # (1.3-7.7) k/uL Sodium (137-145) mmol/L Potassium (3.5-5.1) mmol/L Carbon Dioxide (22-30) mmol/L BUN (9-20) mg/dL Creatinine (0.66-1.25) mg/dL Glucose (74-99) mg/dL POC Glucose (mg/dL) (70-110) mg/dL Plasma Lactic Acid Kyle 4.0 H* 3.7 H* (0.7-2.0) mmol/L Calcium (8.4-10.2) mg/dL AST (17-59) U/L Alkaline Phosphatase (38-126) U/L Troponin I (0.000-0.034) ng/mL C-Reactive Protein (<1.0) mg/dL Total Protein (6.3-8.2) g/dL Albumin (3.5-5.0) g/dL Procalcitonin (0.02-0.09) ng/mL Free T3 pg/mL 2.7 L (2.8-5.3) pg/ml Urine Protein (Negative) Urine Glucose (UA) (Negative) Urine Blood (Negative) Ur Leukocyte Esterase (Negative) Urine RBC (0-5) /hpf Urine WBC (0-5) /hpf Urine Bacteria (None) /hpf Hyaline Casts (0-2) /lpf Urine Mucus (None) /hpf 12/02/22 12/02/22 12/02/22 Range/Units 18:45 20:28 22:15 WBC (3.8-10.6) k/uL RBC (4.30-5.90) m/uL Hgb (13.0-17.5) gm/dL Hct (39.0-53.0) % MCHC (31.0-37.0) g/dL Neutrophils # (1.3-7.7) k/uL Sodium (137-145) mmol/L Potassium (3.5-5.1) mmol/L Carbon Dioxide (22-30) mmol/L BUN (9-20) mg/dL Creatinine (0.66-1.25) mg/dL Glucose (74-99) mg/dL POC Glucose (mg/dL) 121 H (70-110) mg/dL Plasma Lactic Acid Kyle 2.4 H* (0.7-2.0) mmol/L Calcium (8.4-10.2) mg/dL AST (17-59) U/L Alkaline Phosphatase (38-126) U/L Troponin I (0.000-0.034) ng/mL C-Reactive Protein (<1.0) mg/dL Total Protein (6.3-8.2) g/dL Albumin (3.5-5.0) g/dL Procalcitonin (0.02-0.09) ng/mL Free T3 pg/mL (2.8-5.3) pg/ml Urine Protein 1+ H (Negative) Urine Glucose (UA) 2+ H (Negative) Urine Blood Trace H (Negative) Ur Leukocyte Esterase Trace H (Negative) Urine RBC 40 H (0-5) /hpf Urine WBC 6 H (0-5) /hpf Urine Bacteria Rare H (None) /hpf Hyaline Casts 3 H (0-2) /lpf Urine Mucus Few H (None) /hpf 12/03/22 12/03/22 12/03/22 Range/Units 02:50 02:50 05:42 WBC 11.2 H (3.8-10.6) k/uL RBC 3.67 L (4.30-5.90) m/uL Hgb 10.5 L (13.0-17.5) gm/dL Hct 33.8 L (39.0-53.0) % MCHC (31.0-37.0) g/dL Neutrophils # 9.0 H (1.3-7.7) k/uL Sodium 134 L (137-145) mmol/L Potassium (3.5-5.1) mmol/L Carbon Dioxide 18 L (22-30) mmol/L BUN 44 H (9-20) mg/dL Creatinine 1.63 H (0.66-1.25) mg/dL Glucose (74-99) mg/dL POC Glucose (mg/dL) (70-110) mg/dL Plasma Lactic Acid Kyle 2.7 H* (0.7-2.0) mmol/L Calcium 8.3 L (8.4-10.2) mg/dL AST (17-59) U/L Alkaline Phosphatase 141 H (38-126) U/L Troponin I (0.000-0.034) ng/mL C-Reactive Protein 3.1 H (<1.0) mg/dL Total Protein 5.8 L (6.3-8.2) g/dL Albumin 3.1 L (3.5-5.0) g/dL Procalcitonin (0.02-0.09) ng/mL Free T3 pg/mL (2.8-5.3) pg/ml Urine Protein (Negative) Urine Glucose (UA) (Negative) Urine Blood (Negative) Ur Leukocyte Esterase (Negative) Urine RBC (0-5) /hpf Urine WBC (0-5) /hpf Urine Bacteria (None) /hpf Hyaline Casts (0-2) /lpf Urine Mucus (None) /hpf
[2022-12-03] MEDS: DEXTROSE 5% IN WATER 1,000 ML with SODIUM BICARB (1 MEQ/ML) 150 ML IV SCH (15:53)
[2022-12-03] MEDS: HYDROcodone/APAP 5-325MG 1 EACH TAB PO PRN (15:53)
[2022-12-03 16:49] LABS: Glucose,Whole Blood 107 mg/dL (70-110)
[2022-12-03] MEDS: ATORVASTATIN 80 MG TAB PO SCH (20:39)
[2022-12-04] MEDS: PIPERACILLIN-TAZOBACTAM 3.375 GM in SODIUM CHLORIDE 0.9% 100 ML IVPB SCH ×3 (00:07→15:32)
[2022-12-04 06:02] LABS: Basophils % (A) 0 %; Eosinophils % (A) 0 %; HCT 33.9 % (39.0-53.0); HGB 10.2 gm/dL (13.0-17.5); Hypochromasia Marked; Lymphocytes # (A) 0.5 k/uL (1.0-4.8); Lymphocytes % (A) 4 %; MCH 29.4 pg (25.0-35.0); Mean Platelet Volume 9.7; Monocytes # (A) 1.1 k/uL (0-1.0); Monocytes % (A) 9 %; Neutrophils # (A) 10.9 k/uL (1.3-7.7); Neutrophils % (A) 85 %; Platelet Count 123 k/uL (150-450); RBC 3.47 m/uL (4.30-5.90); RDW 15.3 % (11.5-15.5); WBC 12.8 k/uL (3.8-10.6)
[2022-12-04 06:03] LABS: MCV 97.9 fL (80.0-100.0)
[2022-12-04] MEDS: carvediloL 3.125 MG TAB PO SCH ×2 (06:10→17:47)
[2022-12-04 06:26] LABS: African American GFR (CKD) 50 (>60 ml/min/1.73 sqM); Anion Gap 9 mmol/L; Blood Urea Nitrogen 37 mg/dL (9-20); Calcium 7.9 mg/dL (8.4-10.2); Carbon Dioxide 24 mmol/L (22-30); Chloride 99 mmol/L (98-107); Glucose 103 mg/dL (74-99); Non-African American GFR(CKD) 44 (>60 ml/min/1.73 sqM); Potassium 4.2 mmol/L (3.5-5.1); Sodium 132 mmol/L (137-145)
--- NOTE | 2022-12-04 07:24 | XR ---
EXAMINATION TYPE: XR chest 1V portable DATE OF EXAM: 12/04/2022 HISTORY: Shortness of breath. COMPARISON: 12/03/2022 TECHNIQUE: Single view of the chest is submitted. FINDINGS: Demonstrated are scattered senescent parenchymal change. Persistent increased density left lower lobe which may reflect a combination of atelectasis, infiltra te with effusion. The right lung is clear. The heart is stable. Hilar and mediastinal structures are within normal limits. Degenerative changes are seen of the dorsal spine. IMPRESSION: 1. Persistent increased density left lower lobe which may reflect a combination of atelectasis, infi ltrate with effusion.
[2022-12-04] MEDS: HEPARIN SODIUM,PORCINE/PF 5,000 UNIT/0.5 ML SYRINGE SQ SCH ×2 (08:53→19:46)
[2022-12-04] MEDS: CLOPIDOGREL 75 MG TAB PO SCH (08:53)
[2022-12-04] MEDS: SOTALOL 80 MG TAB PO SCH ×2 (08:53→19:46)
[2022-12-04] MEDS: ASPIRIN 81 MG PO SCH (08:53)
[2022-12-04] MEDS: ASCORBIC ACID 500 MG TAB PO SCH (08:53)
[2022-12-04] MEDS: FUROSEMIDE 10 MG/ML 4 ML VIAL IV SCH (08:53)
[2022-12-04] MEDS: CHOLECALCIFEROL 25 MCG (1000 IU) TABLET PO SCH (08:53)
[2022-12-04] MEDS: PANTOPRAZOLE 40 MG/10 ML VIAL IV SCH (08:53)
[2022-12-04] MEDS: HYDROcodone/APAP 5-325MG 1 EACH TAB PO PRN ×3 (08:54→21:47)
--- NOTE | 2022-12-04 09:05 | P.PN ---
Subjective Progress Note Date: 12/04/22 The patient is a 77-year-old male who follows in the office with Dr. BETI Chisholm. He is currently admitted to the hospital with abdominal discomfort. He was seen and evaluated on the medical floor, after being consulted for abnormal troponins. There are flat trend and not indicative of ACS. A team was notified later that the patient had an episode of presyncope with associated bradycardia and diaphoresis. He was subsequently transferred to the ICU. Chest x-ray showed mild right lower lobe infiltrate and small left pleural effusion. Device was interrogated. No evidence of device malfunction or arrhythmia. Over the last 24 hours he has had a couple episodes of hypotension. He has been asymptomatic with these episodes. Chest x-ray shows left lower lobe atelectasis/effusion. The patient was interviewed and examined sitting up in the recliner chair. No chest pain or chest pressure. No difficulty breathing. GENERAL: Ill-appearing, well-nourished and in no acute distress. NECK: Supple without JVD or thyromegaly. LUNGS: Breath sounds diminished to auscultation bilaterally. Respiration equal and unlabored. No wheezes, rales or rhonchi. HEART: Regular rate and rhythm without murmurs, rubs or gallops. S1 and S2 heard. EXTREMITIES: Normal range of motion, no edema. No clubbing or cyanosis. Peripheral pulses intact and strong. VITALS: Blood pressure 99/73, pulse 57, respiratory rate 19, SpO2 90% on 4 L nasal cannula, afebrile TELEMETRY: Sinus rhythm and paced rhythm LABS: WBC 12.8, hemoglobin 10.2, hematocrit 33.9, platelet 123, sodium 132, potassium 4.2, BUN 37, creatinine 1.52 IMPRESSION: Abdominal discomfort Elevated troponins, not indicative of ACS Chronic kidney disease Chronic congestive heart failure with reduced ejection fraction Ascending aortic aneurysm Coronary artery disease with prior CABG and stenting Ischemic cardiomyopathy status post AICD Ventricular tachycardia PLAN: Continue home cardiac medications Aggressive pulmonary hygiene No further recommendations from the cardiac standpoint I am dictating on behalf of Dr Hunter Perez's history/physical and assessment/plan. Objective - Vital Signs Vital signs: Vital Signs Temp 98.0 F 12/04/22 08:00 Pulse 57 L 12/04/22 08:00 Resp 19 12/04/22 08:00 BP 99/73 12/04/22 08:00 Pulse Ox 95 12/04/22 08:36 FiO2 Intake & Output 12/03/22 12/04/22 12/04/22 18:59 06:59 18:59 Intake Total 2400 1000 240 Output Total 1895 415 65 Balance 505 585 175 Intake: IV 960 700 240 Dextrose 5% in Water 1, 650 550 100 000 ml @ 50 mls/hr IV . Q23H GORDY with Sodium Bicarb (1 Meq/ml) 150 ml Rx#:[id number] Invasive Line 4 30 20 Invasive Line 5 80 30 40 Piperacillin-Tazobactam 3 200 100 100 .375 gm In Sodium Chloride 0.9% 100 ml @ 25 mls/hr IVPB Q8HR GORDY Rx# :[id number] Oral 1440 300 Output: Urine 1895 415 65 Other: Voiding Method Indwelling Catheter Indwelling Catheter # Bowel Movements 0 - Labs CBC & Chem 7: 12/04/22 05:34 12/04/22 05:34 Labs: Abnormal Lab Results - Last 24 Hours (Table) 12/04/22 12/04/22 Range/Units 05:34 05:34 WBC 12.8 H (3.8-10.6) k/uL RBC 3.47 L (4.30-5.90) m/uL Hgb 10.2 L (13.0-17.5) gm/dL Hct 33.9 L (39.0-53.0) % MCHC 30.0 L (31.0-37.0) g/dL Plt Count 123 L (150-450) k/uL Neutrophils # 10.9 H (1.3-7.7) k/uL Lymphocytes # 0.5 L (1.0-4.8) k/uL Monocytes # 1.1 H (0-1.0) k/uL Sodium 132 L (137-145) mmol/L BUN 37 H (9-20) mg/dL Creatinine 1.52 H (0.66-1.25) mg/dL Glucose 103 H (74-99) mg/dL Calcium 7.9 L (8.4-10.2) mg/dL Microbiology - Last 24 Hours (Table) 12/02/22 11:50 Blood Culture - Preliminary Blood
--- NOTE | 2022-12-04 09:45 | P.PN ---
Subjective Progress Note Date: 12/04/22 I am seeing this patient in new consultation today 12/03/2022 in the intensive care unit after the patient was A-teamed, and transferred to the intensive care unit yesterday for worsening abdominal pain and shortness of breath. The patient is a 77-year-old male with past medical history significant for COPD, intermittent oxygen use at home, severe ischemic cardiomyopathy with ejection fraction of 20%, prior ventricular tachycardia, AICD/pacemaker implant, coronary artery disease status post CABG, prior myocardial infarction and cardiac stents,hypertension, hyperlipidemia, kidney stones, prostate disorder,and is an ex-smoker. Patient presented in the emergency room on November 30 complaining of generalized upper abdominal pain. No reports of nausea, vomiting, or constipation. Admits intermittent diarrhea. He is also reporting intermittent shortness of breath over the last month. This has been associated with fever, chills, and a minimally productive cough. CT of abdomen and pelvis without c ontrast on arrival did not show any acute intraabdominal process. It did show some more chronic changes including an aneurysmal ascending or aorta measuring 4.6 cm, bladder wall thickening or distention, minimal free fluid in the posterior pelvis/presacral edema, a surgically absent gallbladder, and billiary system dilation. It also showed moderate left and small right pleural effusions.the patient was admitted to the floor, and an A-team was called yesterday morning for concerns of worsening abdominal pain and shortness of breath. The patient also had a transient episode of bradycardia and hyperkalemia which was treated with K-cocktail and improved. The patient does have a pacemaker. Lactic acid level was also elevated at 4. Blood pressure was stable, and did not require vasopressors. Patient was transferred to the intensive care unit. A follow-up CT of the chest/abdomen/pelvis with contrast, again showed no acute intra-abdominal process. It did show evidence of heart failure with cardiomegaly, trace bilateral pleural effusions, and pulmonary vascular congestion. There are some chronic emphysematous changes. There is redemonstration of the prior findings. Patient is currently sitting up in bed, on 3 L nasal cannula, in no acute distress. Chest x-ray from yesterday morning shows a possible developing right lower lobe infiltrate. There is also a suspected small left pleural effusion. Patient is empirically covered on Zosyn. He is afebrile. Procalcitonin level was mildly elevated at 0.2. He has multiple general complaints, and is technically a poor historian. He is telling me that he has bilateral flank pain and abdominal pain. Urinalysis was not concerning for UTI. Most recent CBC from yesterday morning shows a WBC count of 11, hemoglobin 12, hematocrit 39, platelets 247. BMP from yesterday shows sodium 134, potassium 4.9, chloride 107, serum bicarb 15, BUN 40, creatinine 1.85, glucose 127. Lactic acid level is down to 2.4. He has been given a total of 2 L normal saline bolus. The patient does have a component of metabolic acidosis, and currently has sodium bicarb 3 A in D5W infusing at 50 ML's per hour. LFTs are mildly elevated. Troponins are elevated at 0.15, 0.15, 0.11 respectively. ECG on arrival shows no acute ischemic changes. Patient will be monitored in the intensive care unit. On today's evaluation of 12/04/2022, the patient is sitting up on a chair. His abdominal pain is subsided significantly. He is hemodynamically stable. He was resuscitated IV fluids and the patient was given bicarb infusion the bicarb deficit was corrected and serum bicarbs of 24. Lactic acid level is also improved. The patient is producing urine output in the order of 30 mL an hour. Creatinine is stable at 1.5. Pro-calcitonin level was 0.2. The WBC count is at 4.8 with a hemoglobin 10.2 and a platelet count of 123. The patient has no specific complaints. Tolerating his diet. He remains on IV Zosyn. He is also receiving Lasix 40 mg IV every 24 hours. Chest x-ray shows a left-sided pleural effusion. This was drained in the past and this was consistent with CHF. No chest pain. He is currently on 4 L of O2 nasal cannula., Comfortable. No specific complaint otherwise for now. Objective - Vital Signs Vital signs: Vital Signs Temp 98.0 F 12/04/22 08:00 Pulse 56 L 12/04/22 09:00 Resp 17 12/04/22 09:00 BP 111/55 12/04/22 09:00 Pulse Ox 95 12/04/22 08:36 FiO2 Intake & Output 12/03/22 12/04/22 12/04/22 18:59 06:59 18:59 Intake Total 2400 1000 240 Output Total 1895 415 65 Balance 505 585 175 Intake: IV 960 700 240 Dextrose 5% in Water 1, 650 550 100 000 ml @ 50 mls/hr IV . Q23H GORDY with Sodium Bicarb (1 Meq/ml) 150 ml Rx#:[id number] Invasive Line 4 30 20 Invasive Line 5 80 30 40 Piperacillin-Tazobactam 3 200 100 100 .375 gm In Sodium Chloride 0.9% 100 ml @ 25 mls/hr IVPB Q8HR GORDY Rx# :[id number] Oral 1440 300 Output: Urine 1895 415 65 Other: Voiding Method Indwelling Catheter Indwelling Catheter Indwelling Catheter # Bowel Movements 0 - Exam GENERAL EXAM: Alert, 77-year-old male, comfortable in no apparent distress. The patient is currently on 47 with a nasal cannula HEAD: Normocephalic and atraumatic EYES: Normal reaction of pupils, equal size. NOSE: Clear with pink turbinates. THROAT: No erythema or exudates. NECK: No masses, no JVD. CHEST: No chest wall deformity. Old sternotomy incision. Left chest wall implanted device LUNGS: Equal air entry with fine right lower lobe inspiratory crackles. No wheeze, rhonchi or dullness. on 4 L nasal cannula. No conversational dyspnea or accessory muscle use.. CVS: S1 and S2 normal with no audible murmur, regular rhythm. No extra heart sounds ABDOMEN: No hepatosplenomegaly, active bowel sounds, no guarding or rigidity. SPINE: No scoliosis or deformity. No flank bruising or meadows's sign. SKIN: No rashes. CENTRAL NERVOUS SYSTEM: No focal deficits, tone is normal in all 4 extremities. EXTREMITIES: There is no peripheral edema, clubbing, or cyanosis. Peripheral pulses are intact. - Labs CBC & Chem 7: 12/04/22 05:34 12/04/22 05:34 Labs: Abnormal Lab Results - Last 24 Hours (Table) 12/04/22 12/04/22 Range/Units 05:34 05:34 WBC 12.8 H (3.8-10.6) k/uL RBC 3.47 L (4.30-5.90) m/uL Hgb 10.2 L (13.0-17.5) gm/dL Hct 33.9 L (39.0-53.0) % MCHC 30.0 L (31.0-37.0) g/dL Plt Count 123 L (150-450) k/uL Neutrophils # 10.9 H (1.3-7.7) k/uL Lymphocytes # 0.5 L (1.0-4.8) k/uL Monocytes # 1.1 H (0-1.0) k/uL Sodium 132 L (137-145) mmol/L BUN 37 H (9-20) mg/dL Creatinine 1.52 H (0.66-1.25) mg/dL Glucose 103 H (74-99) mg/dL Calcium 7.9 L (8.4-10.2) mg/dL Microbiology - Last 24 Hours (Table) 12/02/22 11:50 Blood Culture - Preliminary Blood Assessment and Plan Assessment: Abdominal and bilateral flank pain, currently under investigation. CT of the chest/abdomen/pelvis shows no acute intra-abdominal process. Acute on chronic hypoxemic respiratory failure, possibly multifactorial related to a developing right lower lobe pneumonia and/or mild CHF exacerbation with reduced ejection fraction. Currently on 4 L per minute nasal cannula. Chest x- ray from yesterday morning shows possible developing right lower lobe infiltrate. Procalcitonin level is mildly elevated at 0.2. Chest/abdominal/pelvic CT also showed evidence of heart failure with cardiomegaly, bilateral pleural effusions, and pulmonary vascular congestion. The patient continues to have a left-sided pleural effusion without any significant respiratory distress and the fluid is related to his underlying congestion heart failure. Chronic obstructive pulmonary disease, stable Hyperkalemia, improved Metabolic acidosis secondary to lactic acidemia, improved and the patient's serum bicarb has normalized Elevated troponins, possibly related supplies/demand mismatch Ischemic cardiomyopathy, with a baseline ejection fraction of less than 20%, and prior episodes of ventricular tachycardia status post AICD/pacemaker insertion Acute on chronic kidney disease, creatinine is 1.85 Benign essential hypertension Hyperlipidemia Coronary artery disease with prior myocardial infarction and cardiac stents x5 Ascending aortic aneurysm measuring 4.6 cm Degenerative joint disease Obstructive sleep apnea History of nephrolithiasis History of cholecystectomy Ex-smoker plan: Discontinue the bicarb infusion Continue Lasix 40 mg IV every 24 hours Wean down FiO2 as tolerated Continue supplemental oxygen Continue empiric antibiotics Procalcitonin level was mildly elevated at 0.2 Blood cultures are pending monitor electrolytes, especially potassium patient will be monitored in the intensive care unit He is tolerating diet and he was given regular heart healthy diet. May possibly leaves ICU at the later stage
--- NOTE | 2022-12-04 13:13 | P.PN ---
Subjective Progress Note Date: 12/04/22 The patient is a 77-year-old male with a known history of severe ischemic cardiac myopathy, status post ICD implantation, status post CABG and PCI, he underwent PCI of the left main and circumflex in August [address] Chisholm with mechanical support. He has a patent WHITE to the LAD and patent radial to the right PDA was occluded SVG to the PLV who presented to the hospital because of abdominal pain and nausea and vomiting. Patient stated that he has been having abdominal pain for last couple of days, pain is located in the upper part of the abdomen and is going to his back. Denies any chest pain. Does complain of worsening shortness of breath. Because of the abdominal pain patient came to the ER Initial lab work in the ER showed WBC 6.6, hemoglobin 11.7, platelet count 258, sodium 133, potassium 5.1, BUN 27, creatinine 1.58 CT Abdomen pelvis showed moderate left and small right pleural effusions, left lower lobe atelectasis, partially visualized aneurysmal aorta of 4.6 cm Patient was admitted to medicine service for further evaluation and treatment 12/02. Patient seen and examined. Patient had rapid response called because of feeling of being cold and clammy, patient also having pain in his belly. Complaining of shortness of breath at rest. When the aide team arrived, patient blood pressure was stable but heart rate dipped into 30s. EKGs was ordered, stat CBC CMP, chest x-ray ordered. Patient was transferred to ICU 12/03. Patient seen and examined. Blood work done this morning showed white count 11.2, hemoglobin 10.5. Sodium 134, potassium 4.9, chloride 105, BUN 44, creatinine 1.63 Patient states he feels much better. States flank pain is also improved. States she has poor appetite, discussed with him regarding the need for him to eat 12/04. Patient seen and examined. Laying comfortably in the chair. States he feels better. Currently on 4 L of oxygen. Continues to complain of poor appetite REVIEW OF SYSTEMS: CONSTITUTIONAL: Denies lethargy CARDIOVASCULAR: No chest pain, PULMONARY: Difficulty in breathing improving GASTROINTESTINAL: No diarrhea,. Abdominal pain improved NEUROLOGICAL: No headaches, no weakness, PHYSICAL EXAMINATION: GENERAL: The patient is alert and oriented x3, not in any acute distress HEENT: Pupils are round and equally reacting to light. EOMI. No scleral icterus. No conjunctival pallor. Normocephalic, atraumatic. No pharyngeal erythema. No thyromegaly. CARDIOVASCULAR: S1 and S2 present. No murmurs, rubs, or gallops. PULMONARY: Coarse breath sounds bilaterally ABDOMEN: Soft, nontender, nondistended, normoactive bowel sounds. No palpable organomegaly. MUSCULOSKELETAL: No joint swelling or deformity. EXTREMITIES: No cyanosis, clubbing, or pedal edema. Extremities are cold to touch NEUROLOGICAL: Gross neurological examination did not reveal any focal deficits. SKIN: No rashes. Assessment and plan Acute on chronic hypoxic respiratory failure Bradycardia Bacterial Pneumonia Hyperkalemia Abdominal pain Nausea and vomiting Elevated troponin History of ischemic cardiomyopathy with most recent EF of 20% History of CABG with stenting Permanent pacemaker AICD in 2019 History of fibromyalgia Hyperlipidemia COPD, not an exacerbation hypertension Monitor vital signs Monitor CBC Monitor CMP Continue telemetry monitoring Follow-up on blood cultures Low potassium diet Continue IV Zosyn Continue IV Lasix 40 mg twice a day DC IV fluids Follow-up on ID recommendations Critical care following Follow-up on cardiology recommendations, they signed off, outpatient follow up with guardian Objective - Vital Signs Vital signs: Vital Signs Temp 98.0 F 12/04/22 08:00 Pulse 56 L 12/04/22 09:00 Resp 17 12/04/22 09:00 BP 111/55 12/04/22 09:00 Pulse Ox 95 12/04/22 08:36 FiO2 Intake & Output 12/03/22 12/04/22 12/04/22 18:59 06:59 18:59 Intake Total 2400 1000 240 Output Total 1895 415 110 Balance 505 585 130 Intake: IV 960 700 240 Dextrose 5% in Water 1, 650 550 100 000 ml @ 50 mls/hr IV . Q23H GORDY with Sodium Bicarb (1 Meq/ml) 150 ml Rx#:[id number] Invasive Line 4 30 20 Invasive Line 5 80 30 40 Piperacillin-Tazobactam 3 200 100 100 .375 gm In Sodium Chloride 0.9% 100 ml @ 25 mls/hr IVPB Q8HR GORDY Rx# :[id number] Oral 1440 300 Output: Urine 1895 415 110 Other: Voiding Method Indwelling Catheter Indwelling Catheter Indwelling Catheter # Bowel Movements 0 - Labs CBC & Chem 7: 12/04/22 05:34 12/04/22 05:34 Labs: Abnormal Lab Results - Last 24 Hours (Table) 12/04/22 12/04/22 Range/Units 05:34 05:34 WBC 12.8 H (3.8-10.6) k/uL RBC 3.47 L (4.30-5.90) m/uL Hgb 10.2 L (13.0-17.5) gm/dL Hct 33.9 L (39.0-53.0) % MCHC 30.0 L (31.0-37.0) g/dL Plt Count 123 L (150-450) k/uL Neutrophils # 10.9 H (1.3-7.7) k/uL Lymphocytes # 0.5 L (1.0-4.8) k/uL Monocytes # 1.1 H (0-1.0) k/uL Sodium 132 L (137-145) mmol/L BUN 37 H (9-20) mg/dL Creatinine 1.52 H (0.66-1.25) mg/dL Glucose 103 H (74-99) mg/dL Calcium 7.9 L (8.4-10.2) mg/dL Microbiology - Last 24 Hours (Table) 12/02/22 18:45 Nasal Screen MRSA/MSSA - Final Nasal Swab 12/02/22 11:50 Blood Culture - Preliminary Blood
[2022-12-04] MEDS ORDERED: polyethylene glycoL 3350 17 GM POWD.PACK PO STA (18:33)
[2022-12-04] MEDS: ATORVASTATIN 80 MG TAB PO SCH (19:46)
[2022-12-04] MEDS: DOCUSATE 100 MG CAP PO SCH (19:47)
[2022-12-04] MEDS: ALPRAZolam 0.5 MG TAB PO PRN (21:49)
--- NOTE | 2022-12-04 22:44 | P.PN ---
Subjective Progress Note Date: 12/04/22 Principal diagnosis: Pneumonia Patient is a 77-year-old male with a past medical history significant for hypertension hyperlipidemia coronary artery disease COPD sleep apnea presented to hospital with abdominal and back pain which is bilateral effusion possible atelectasis/pneumonia and cystitis On today's evaluation that is 12/04/2022 the patient is afebrile patient is currently breathing comfortable on 2 L nasal cannula oxygen patient denies having any chest pain occasional cough not bringing any sputum no nausea vomiting abdominal pain or diarrhea Objective - Vital Signs Vital signs: Vital Signs Temp 97.8 F 12/04/22 19:50 Pulse 58 L 12/04/22 19:50 Resp 18 12/04/22 19:50 BP 102/57 12/04/22 19:50 Pulse Ox 93 L 12/04/22 19:50 FiO2 Intake & Output 12/04/22 12/04/22 12/05/22 06:59 18:59 06:59 Intake Total 1000 580 Output Total 415 535 Balance 585 45 Weight 70 kg Intake: IV 700 360 Dextrose 5% in Water 1, 550 100 000 ml @ 50 mls/hr IV . Q23H GORDY with Sodium Bicarb (1 Meq/ml) 150 ml Rx#:[id number] Invasive Line 4 20 Invasive Line 5 30 60 Piperacillin-Tazobactam 3 100 200 .375 gm In Sodium Chloride 0.9% 100 ml @ 25 mls/hr IVPB Q8HR GORDY Rx# :[id number] Oral 300 220 Output: Urine 415 535 Other: Voiding Method Indwelling Catheter Indwelling Catheter Toilet Urinal # Voids 1 # Bowel Movements 1 - Exam GENERAL DESCRIPTION: An elderly male lying in bed in no distress RESPIRATORY SYSTEM: Unlabored breathing , decreased breath sounds at bases HEART: S1 S2 regular rate and rhythm , ABDOMEN: Soft , no tenderness EXTREMITIES: No edema feet - Labs CBC & Chem 7: 12/04/22 05:34 12/04/22 05:34 Labs: Abnormal Lab Results - Last 24 Hours (Table) 12/04/22 12/04/22 Range/Units 05:34 05:34 WBC 12.8 H (3.8-10.6) k/uL RBC 3.47 L (4.30-5.90) m/uL Hgb 10.2 L (13.0-17.5) gm/dL Hct 33.9 L (39.0-53.0) % MCHC 30.0 L (31.0-37.0) g/dL Plt Count 123 L (150-450) k/uL Neutrophils # 10.9 H (1.3-7.7) k/uL Lymphocytes # 0.5 L (1.0-4.8) k/uL Monocytes # 1.1 H (0-1.0) k/uL Sodium 132 L (137-145) mmol/L BUN 37 H (9-20) mg/dL Creatinine 1.52 H (0.66-1.25) mg/dL Glucose 103 H (74-99) mg/dL Calcium 7.9 L (8.4-10.2) mg/dL Microbiology - Last 24 Hours (Table) 12/02/22 11:50 Blood Culture - Preliminary Blood 12/02/22 18:45 Nasal Screen MRSA/MSSA - Final Nasal Swab Assessment and Plan (1) Pneumonia Current Visit: Yes Status: Acute Code(s): J18.9 - PNEUMONIA, UNSPECIFIED ORGANISM SNOMED Code(s): 567873165 Plan: 1patient presented hospital with abdominal pain did have evidence of effusion no acute abdominal date abdominal pelvis except evidence of bilateral effusion and the patient did have slightly respiratory compromise mild cough concern for possible pneumonia not entirely excluded with the predominant abdominal symptoms and evidence of elevated lactic acid we will need to cover for the enteric gram-negative both aerobes and anaerobes 2-patient with borderline kidney function high risk of nephrotoxicity from vancomycin 3-patient did have elevated CRP however procalcitonin Was mildly elevated at 0.2 0 4patient seem to have shown some clinical improvement and we will keep the patient on Zosyn while waiting for the culture to finalize Time with Patient: Less than 30
[2022-12-05] MEDS: PIPERACILLIN-TAZOBACTAM 3.375 GM in SODIUM CHLORIDE 0.9% 100 ML IVPB SCH ×2 (00:13→09:29)
[2022-12-05] MEDS: HYDROcodone/APAP 5-325MG 1 EACH TAB PO PRN ×2 (03:23→09:30)
[2022-12-05] MEDS: carvediloL 3.125 MG TAB PO SCH ×2 (06:43→15:53)
[2022-12-05 09:08] LABS: African American GFR (CKD) 56 (>60 ml/min/1.73 sqM); Anion Gap 6 mmol/L; Blood Urea Nitrogen 32 mg/dL (9-20); Calcium 8.1 mg/dL (8.4-10.2); Carbon Dioxide 26 mmol/L (22-30); Chloride 101 mmol/L (98-107); Glucose 98 mg/dL (74-99); Non-African American GFR(CKD) 48 (>60 ml/min/1.73 sqM); Sodium 133 mmol/L (137-145)
[2022-12-05 09:15] LABS: Potassium 3.7 mmol/L (3.5-5.1)
[2022-12-05] MEDS: CHOLECALCIFEROL 25 MCG (1000 IU) TABLET PO SCH (09:29)
[2022-12-05] MEDS: ASPIRIN 81 MG PO SCH (09:30)
[2022-12-05] MEDS: CLOPIDOGREL 75 MG TAB PO SCH (09:30)
[2022-12-05] MEDS: ASCORBIC ACID 500 MG TAB PO SCH (09:30)
[2022-12-05] MEDS: FUROSEMIDE 10 MG/ML 4 ML VIAL IV SCH (09:31)
[2022-12-05] MEDS: PANTOPRAZOLE 40 MG/10 ML VIAL IV SCH (09:31)
[2022-12-05] MEDS: DOCUSATE 100 MG CAP PO SCH (09:31)
[2022-12-05] MEDS: HEPARIN SODIUM,PORCINE/PF 5,000 UNIT/0.5 ML SYRINGE SQ SCH ×2 (09:31→22:03)
--- NOTE | 2022-12-05 10:58 | P.PN ---
Subjective Progress Note Date: 12/05/22 This is Gregory Robert NP, I'm dictating on behalf of Dr. Perez's H&P and A&P. Patient was interviewed and examined. Patient is a pleasant 77-year-old male who presented to the hospital with intractable nausea and vomiting, and pneumonia, who had elevated troponins. Patient reports that he is feeling a little better today. He does report that he is breathing better. His heart rate has been running low, the patient does have a pacemaker. GENERAL: Well-appearing, well-nourished and in no acute distress. NECK: Supple without JVD or thyromegaly. LUNGS: Breath sounds clear to auscultation bilaterally. Respiration equal and unlabored. No wheezes, rales or rhonchi. HEART: Regular rate and rhythm without murmurs, rubs or gallops. S1 and S2 heard. EXTREMITIES: Normal range of motion, no edema. No clubbing or cyanosis. Peripheral pulses intact and strong. VITALS: Temp 97.6, pulse 55, respirations 22, blood pressure 140/60, O2 saturation 98% on 1 L TELEMETRY: Paced sinus rhythm LABS: Sodium 133, potassium 3.7, B1 32, creatinine 1.39, calcium 8.1 IMPRESSION: 1. Elevated troponins, not indicative of ACS 2. Abdominal discomfort 3. Chronic kidney disease 4. Chronic congestive heart failure with reduced ejection fraction 5. Ascending aortic aneurysm 6. Coronary artery disease with prior CABG and stenting 7. Ischemic cardiomyopathy status post AICD 8. Ventricular tachycardia PLAN: Discontinue sotalol in the presence of elevated creatinine and a low heart rate Continue home cardiac medications otherwise Aggressive pulmonary hygiene Further recommendations based on patient's clinical course Objective - Vital Signs Vital signs: Vital Signs Temp 97.6 F 12/05/22 08:00 Pulse 55 L 12/05/22 08:00 Resp 22 12/05/22 08:00 BP 140/60 12/05/22 08:00 Pulse Ox 93 L 12/05/22 09:08 FiO2 Intake & Output 12/04/22 12/05/22 12/05/22 18:59 06:59 18:59 Intake Total 580 340 220 Output Total 219 193 754 Balance 45 147 -534 Weight 70 kg Intake: IV 360 100 Dextrose 5% in Water 1, 100 000 ml @ 50 mls/hr IV . Q23H GORDY with Sodium Bicarb (1 Meq/ml) 150 ml Rx#:[id number] Invasive Line 5 60 Piperacillin-Tazobactam 3 200 100 .375 gm In Sodium Chloride 0.9% 100 ml @ 25 mls/hr IVPB Q8HR GORDY Rx# :[id number] Oral 220 240 220 Output: Urine 535 375 Uretheral (Abrams) 375 Post Void Residual 193 379 Other: Voiding Method Indwelling Catheter Toilet Urinal # Voids 1 # Bowel Movements 1 - Labs CBC & Chem 7: 12/04/22 05:34 12/05/22 08:21 Labs: Abnormal Lab Results - Last 24 Hours (Table) 12/05/22 Range/Units 08:21 Sodium 133 L (137-145) mmol/L BUN 32 H (9-20) mg/dL Creatinine 1.39 H (0.66-1.25) mg/dL Calcium 8.1 L (8.4-10.2) mg/dL Microbiology - Last 24 Hours (Table) 12/02/22 11:50 Blood Culture - Preliminary Blood 12/02/22 18:45 Nasal Screen MRSA/MSSA - Final Nasal Swab
[2022-12-05] MEDS: MORPHINE SULFATE 2 MG/ML SYRINGE IVP PRN (12:09)
--- NOTE | 2022-12-05 13:16 | P.PN ---
Subjective Progress Note Date: 12/05/22 I am seeing this patient in new consultation today 12/03/2022 in the intensive care unit after the patient was A-teamed, and transferred to the intensive care unit yesterday for worsening abdominal pain and shortness of breath. The patient is a 77-year-old male with past medical history significant for COPD, intermittent oxygen use at home, severe ischemic cardiomyopathy with ejection fraction of 20%, prior ventricular tachycardia, AICD/pacemaker implant, coronary artery disease status post CABG, prior myocardial infarction and cardiac stents,hypertension, hyperlipidemia, kidney stones, prostate disorder,and is an ex-smoker. Patient presented in the emergency room on November 30 complaining of generalized upper abdominal pain. No reports of nausea, vomiting, or constipation. Admits intermittent diarrhea. He is also reporting intermittent shortness of breath over the last month. This has been associated with fever, chills, and a minimally productive cough. CT of abdomen and pelvis without c ontrast on arrival did not show any acute intraabdominal process. It did show some more chronic changes including an aneurysmal ascending or aorta measuring 4.6 cm, bladder wall thickening or distention, minimal free fluid in the posterior pelvis/presacral edema, a surgically absent gallbladder, and billiary system dilation. It also showed moderate left and small right pleural effusions.the patient was admitted to the floor, and an A-team was called yesterday morning for concerns of worsening abdominal pain and shortness of breath. The patient also had a transient episode of bradycardia and hyperkalemia which was treated with K-cocktail and improved. The patient does have a pacemaker. Lactic acid level was also elevated at 4. Blood pressure was stable, and did not require vasopressors. Patient was transferred to the intensive care unit. A follow-up CT of the chest/abdomen/pelvis with contrast, again showed no acute intra-abdominal process. It did show evidence of heart failure with cardiomegaly, trace bilateral pleural effusions, and pulmonary vascular congestion. There are some chronic emphysematous changes. There is redemonstration of the prior findings. Patient is currently sitting up in bed, on 3 L nasal cannula, in no acute distress. Chest x-ray from yesterday morning shows a possible developing right lower lobe infiltrate. There is also a suspected small left pleural effusion. Patient is empirically covered on Zosyn. He is afebrile. Procalcitonin level was mildly elevated at 0.2. He has multiple general complaints, and is technically a poor historian. He is telling me that he has bilateral flank pain and abdominal pain. Urinalysis was not concerning for UTI. Most recent CBC from yesterday morning shows a WBC count of 11, hemoglobin 12, hematocrit 39, platelets 247. BMP from yesterday shows sodium 134, potassium 4.9, chloride 107, serum bicarb 15, BUN 40, creatinine 1.85, glucose 127. Lactic acid level is down to 2.4. He has been given a total of 2 L normal saline bolus. The patient does have a component of metabolic acidosis, and currently has sodium bicarb 3 A in D5W infusing at 50 ML's per hour. LFTs are mildly elevated. Troponins are elevated at 0.15, 0.15, 0.11 respectively. ECG on arrival shows no acute ischemic changes. Patient will be monitored in the intensive care unit. On today's evaluation of 12/04/2022, the patient is sitting up on a chair. His abdominal pain is subsided significantly. He is hemodynamically stable. He was resuscitated IV fluids and the patient was given bicarb infusion the bicarb deficit was corrected and serum bicarbs of 24. Lactic acid level is also improved. The patient is producing urine output in the order of 30 mL an hour. Creatinine is stable at 1.5. Pro-calcitonin level was 0.2. The WBC count is at 4.8 with a hemoglobin 10.2 and a platelet count of 123. The patient has no specific complaints. Tolerating his diet. He remains on IV Zosyn. He is also receiving Lasix 40 mg IV every 24 hours. Chest x-ray shows a left-sided pleural effusion. This was drained in the past and this was consistent with CHF. No chest pain. He is currently on 4 L of O2 nasal cannula., Comfortable. No specific complaint otherwise for now. On 12/05/2022, the patient is stable. No new complaints. He is having some diarrhea and I suggested to start IV Zosyn and check the patient for stool C. d iff infection. Respiratory status is stable. Remains on Lasix 40 mg IV every 24 hours. BUN is at 32 with a creatinine of 1.39 and a sodium levels of 133 with a potassium level of 3.7. He remains on oxygen and is currently on 2 L with a pulse ox of 93%. No worsening in respiratory status. He is afebrile and hemodynamically stable Objective - Vital Signs Vital signs: Vital Signs Temp 97.6 F 12/05/22 08:00 Pulse 55 L 12/05/22 08:00 Resp 22 12/05/22 08:00 BP 140/60 12/05/22 08:00 Pulse Ox 93 L 12/05/22 09:08 FiO2 Intake & Output 12/04/22 12/05/22 12/05/22 18:59 06:59 18:59 Intake Total 580 340 220 Output Total 535 193 754 Balance 45 147 -534 Weight 70 kg Intake: IV 360 100 Dextrose 5% in Water 1, 100 000 ml @ 50 mls/hr IV . Q23H GORDY with Sodium Bicarb (1 Meq/ml) 150 ml Rx#:[id number] Invasive Line 5 60 Piperacillin-Tazobactam 3 200 100 .375 gm In Sodium Chloride 0.9% 100 ml @ 25 mls/hr IVPB Q8HR GORDY Rx# :[id number] Oral 220 240 220 Output: Urine 535 375 Uretheral (Abrams) 375 Post Void Residual 193 379 Other: Voiding Method Indwelling Catheter Toilet Urinal # Voids 1 # Bowel Movements 1 - Exam GENERAL EXAM: Alert, 77-year-old male, comfortable in no apparent distress. The patient is currently on 2 L O2 with a nasal cannula HEAD: Normocephalic and atraumatic EYES: Normal reaction of pupils, equal size. NOSE: Clear with pink turbinates. THROAT: No erythema or exudates. NECK: No masses, no JVD. CHEST: No chest wall deformity. Old sternotomy incision. Left chest wall implanted device LUNGS: Equal air entry with fine right lower lobe inspiratory crackles. No wheeze, rhonchi or dullness. No conversational dyspnea or accessory muscle use.. CVS: S1 and S2 normal with no audible murmur, regular rhythm. No extra heart sounds ABDOMEN: No hepatosplenomegaly, active bowel sounds, no guarding or rigidity. SPINE: No scoliosis or deformity. No flank bruising or meadows's sign. SKIN: No rashes. CENTRAL NERVOUS SYSTEM: No focal deficits, tone is normal in all 4 extremities. EXTREMITIES: There is no peripheral edema, clubbing, or cyanosis. Peripheral pulses are intact. - Labs CBC & Chem 7: 12/04/22 05:34 12/05/22 08:21 Labs: Abnormal Lab Results - Last 24 Hours (Table) 12/05/22 Range/Units 08:21 Sodium 133 L (137-145) mmol/L BUN 32 H (9-20) mg/dL Creatinine 1.39 H (0.66-1.25) mg/dL Calcium 8.1 L (8.4-10.2) mg/dL Microbiology - Last 24 Hours (Table) 12/02/22 11:50 Blood Culture - Preliminary Blood 12/02/22 18:45 Nasal Screen MRSA/MSSA - Final Nasal Swab Assessment and Plan Assessment: Abdominal and bilateral flank pain, currently under investigation. CT of the chest/abdomen/pelvis shows no acute intra-abdominal process. The abdominal pain is subsided. The patient is currently having diarrhea, rule out antibiotic induced diarrhea Acute on chronic hypoxemic respiratory failure, possibly multifactorial related to a developing right lower lobe pneumonia and/or mild CHF exacerbation with reduced ejection fraction. Currently on 4 L per minute nasal cannula. Chest x- ray from yesterday morning shows possible developing right lower lobe infiltrate. Procalcitonin level is mildly elevated at 0.2. Chest/abdominal/pelvic CT also showed evidence of heart failure with cardiomegaly, bilateral pleural effusions, and pulmonary vascular congestion. The patient continues to have a left-sided pleural effusion without any significant respiratory distress and the fluid is related to his underlying congestion heart failure. Chronic obstructive pulmonary disease, stable Hyperkalemia, improved Metabolic acidosis secondary to lactic acidemia, improved and the patient's serum bicarb has normalized Elevated troponins, possibly related supplies/demand mismatch Ischemic cardiomyopathy, with a baseline ejection fraction of less than 20%, and prior episodes of ventricular tachycardia status post AICD/pacemaker insertion Acute on chronic kidney disease, creatinine is 1.39 Benign essential hypertension Hyperlipidemia Coronary artery disease with prior myocardial infarction and cardiac stents x5 Ascending aortic aneurysm measuring 4.6 cm Degenerative joint disease Obstructive sleep apnea History of nephrolithiasis History of cholecystectomy Ex-smoker plan: Start IV Zosyn Check stool for C. diff Continue Lasix 40 mg IV every 24 hours Wean down FiO2 as tolerated, currently on 2 L Continue supplemental oxygen Continue empiric antibiotics Procalcitonin level was mildly elevated at 0.2 Blood cultures are pending, negative thus far monitor electrolytes, especially potassium He is tolerating diet and he was given regular heart healthy diet. Transferred out of the intensive care unit yesterday
--- NOTE | 2022-12-05 14:29 | P.PN ---
Subjective Progress Note Date: 12/05/22 The patient is a 77-year-old male with a known history of severe ischemic cardiac myopathy, status post ICD implantation, status post CABG and PCI, he underwent PCI of the left main and circumflex in [place] [address] Chisholm with mechanical support. He has a patent WHITE to the LAD and patent radial to the right PDA was occluded SVG to the PLV who presented to the hospital because of abdominal pain and nausea and vomiting. Patient stated that he has been having abdominal pain for last couple of days, pain is located in the upper part of the abdomen and is going to his back. Denies any chest pain. Does complain of worsening shortness of breath. Because of the abdominal pain patient came to the ER Initial lab work in the ER showed WBC 6.6, hemoglobin 11.7, platelet count 258, sodium 133, potassium 5.1, BUN 27, creatinine 1.58 CT Abdomen pelvis showed moderate left and small right pleural effusions, left lower lobe atelectasis, partially visualized aneurysmal aorta of 4.6 cm Patient was admitted to medicine service for further evaluation and treatment 12/02. Patient seen and examined. Patient had rapid response called because of feeling of being cold and clammy, patient also having pain in his belly. Complaining of shortness of breath at rest. When the aide team arrived, patient blood pressure was stable but heart rate dipped into 30s. EKGs was ordered, stat CBC CMP, chest x-ray ordered. Patient was transferred to ICU 12/03. Patient seen and examined. Blood work done this morning showed white count 11.2, hemoglobin 10.5. Sodium 134, potassium 4.9, chloride 105, BUN 44, creatinine 1.63 Patient states he feels much better. States flank pain is also improved. States she has poor appetite, discussed with him regarding the need for him to eat 12/04. Patient seen and examined. Laying comfortably in the chair. States he feels better. Currently on 4 L of oxygen. Continues to complain of poor appetite 12/05. Patient seen and examined. Patient is transferred out of ICU. Sodium this morning is 133, potassium 3.7, BUN 32, creatinine 1.39. Currently on 2 L of oxygen. Complaining of abdominal pain. Tolerating diet. REVIEW OF SYSTEMS: CONSTITUTIONAL: Denies lethargy CARDIOVASCULAR: No chest pain, PULMONARY: Difficulty in breathing improving GASTROINTESTINAL: No diarrhea,. Abdominal pain improved NEUROLOGICAL: No headaches, no weakness, PHYSICAL EXAMINATION: GENERAL: The patient is alert and oriented x3, not in any acute distress HEENT: Pupils are round and equally reacting to light. EOMI. No scleral icterus. No conjunctival pallor. Normocephalic, atraumatic. No pharyngeal erythema. No thyromegaly. CARDIOVASCULAR: S1 and S2 present. No murmurs, rubs, or gallops. PULMONARY: Coarse breath sounds bilaterally ABDOMEN: Soft, nontender, nondistended, normoactive bowel sounds. No palpable organomegaly. MUSCULOSKELETAL: No joint swelling or deformity. EXTREMITIES: No cyanosis, clubbing, or pedal edema. Extremities are cold to touch NEUROLOGICAL: Gross neurological examination did not reveal any focal deficits. SKIN: No rashes. Assessment and plan Acute on chronic hypoxic respiratory failure Bradycardia Bacterial Pneumonia Hyperkalemia Abdominal pain Nausea and vomiting Elevated troponin History of ischemic cardiomyopathy with most recent EF of 20% History of CABG with stenting Permanent pacemaker AICD in 2019 History of fibromyalgia Hyperlipidemia COPD, not an exacerbation hypertension Monitor vital signs Monitor CBC Monitor CMP Continue telemetry monitoring Follow-up on blood cultures Low potassium diet Antibiotics discontinued Continue pain management with Percocet 10 mg every 6 hourly when necessary and IV morphine 2 mg every 8 hourly when necessary Continue IV Lasix 40 mg daily Follow-up on ID recommendations Critical care following Follow-up on cardiology recommendations, they signed off, outpatient follow up with guardian Objective - Vital Signs Vital signs: Vital Signs Temp 97.6 F 12/05/22 08:00 Pulse 55 L 12/05/22 08:00 Resp 22 12/05/22 08:00 BP 140/60 12/05/22 08:00 Pulse Ox 93 L 12/05/22 09:08 FiO2 Intake & Output 12/04/22 12/05/22 12/05/22 18:59 06:59 18:59 Intake Total 580 340 220 Output Total 535 193 754 Balance 45 147 -534 Weight 70 kg Intake: IV 360 100 Dextrose 5% in Water 1, 100 000 ml @ 50 mls/hr IV . Q23H GORDY with Sodium Bicarb (1 Meq/ml) 150 ml Rx#:[id number] Invasive Line 5 60 Piperacillin-Tazobactam 3 200 100 .375 gm In Sodium Chloride 0.9% 100 ml @ 25 mls/hr IVPB Q8HR [facility] Rx# :[id number] Oral 220 240 220 Output: Urine 535 375 Uretheral (Abrams) 375 Post Void Residual 193 379 Other: Voiding Method Indwelling Catheter Toilet Urinal # Voids 1 # Bowel Movements 1 - Labs CBC & Chem 7: 12/04/22 05:34 12/05/22 08:21 Labs: Abnormal Lab Results - Last 24 Hours (Table) 12/05/22 Range/Units 08:21 Sodium 133 L (137-145) mmol/L BUN 32 H (9-20) mg/dL Creatinine 1.39 H (0.66-1.25) mg/dL Calcium 8.1 L (8.4-10.2) mg/dL Microbiology - Last 24 Hours (Table) 12/02/22 11:50 Blood Culture - Preliminary Blood 12/02/22 18:45 Nasal Screen MRSA/MSSA - Final Nasal Swab
[2022-12-05] MEDS: oxyCODONE-APAP 10-325MG 1 EACH TAB PO PRN ×2 (15:52→22:06)
[2022-12-05] MEDS: CHOLESTYRAMINE (WITH SUGAR) 4 GM PACKET PO SCH (15:53)
[2022-12-05 19:46] LABS: Glucose,Whole Blood 90 mg/dL (70-110)
[2022-12-05] MEDS: ATORVASTATIN 80 MG TAB PO SCH (20:10)
--- NOTE | 2022-12-05 22:40 | P.PN ---
Subjective Progress Note Date: 12/05/22 Principal diagnosis: Pneumonia Patient is a 77-year-old male with a past medical history significant for hypertension hyperlipidemia coronary artery disease COPD sleep apnea presented to hospital with abdominal and back pain which is bilateral effusion possible atelectasis/pneumonia and cystitis On today's evaluation that is 12/05/2022 patient is afebrile he is breathing comfortably on 1 L nasal cannula oxygen. Denies having any chest pain or worsening cough or sputum production abdominal pain has been complaining of some diarrhea with few bowel movements today Objective - Vital Signs Vital signs: Vital Signs Temp 98.2 F 12/05/22 11:55 Pulse 55 L 12/05/22 11:55 Resp 20 12/05/22 11:55 BP 133/62 12/05/22 11:55 Pulse Ox 93 L 12/05/22 11:55 FiO2 Intake & Output 12/04/22 12/05/22 12/05/22 18:59 06:59 18:59 Intake Total 580 340 220 Output Total 535 193 754 Balance 45 147 -534 Weight 70 kg Intake: IV 360 100 Dextrose 5% in Water 1, 100 000 ml @ 50 mls/hr IV . Q23H GORDY with Sodium Bicarb (1 Meq/ml) 150 ml Rx#:[id number] Invasive Line 5 60 Piperacillin-Tazobactam 3 200 100 .375 gm In Sodium Chloride 0.9% 100 ml @ 25 mls/hr IVPB Q8HR [facility] Rx# :[id number] Oral 220 240 220 Output: Gastric Drainage 0 Urine 535 375 Uretheral (Abrams) 375 Post Void Residual 193 379 Stool 0 Urine/Stool Mix 0 Emesis 0 Oral Regurgitation 0 Other 0 Other: Voiding Method Indwelling Catheter Toilet Urinal # Voids 1 0 # Bowel Movements 1 0 - Exam GENERAL DESCRIPTION: An elderly male lying in bed in no distress RESPIRATORY SYSTEM: Unlabored breathing , decreased breath sounds at bases HEART: S1 S2 regular rate and rhythm , ABDOMEN: Soft , no tenderness EXTREMITIES: No edema feet - Labs CBC & Chem 7: 12/04/22 05:34 12/05/22 08:21 Labs: Abnormal Lab Results - Last 24 Hours (Table) 12/05/22 Range/Units 08:21 Sodium 133 L (137-145) mmol/L BUN 32 H (9-20) mg/dL Creatinine 1.39 H (0.66-1.25) mg/dL Calcium 8.1 L (8.4-10.2) mg/dL Microbiology - Last 24 Hours (Table) 12/02/22 11:50 Blood Culture - Preliminary Blood 12/02/22 18:45 Nasal Screen MRSA/MSSA - Final Nasal Swab Assessment and Plan (1) Pneumonia Current Visit: Yes Status: Acute Code(s): J18.9 - PNEUMONIA, UNSPECIFIED ORGANISM SNOMED Code(s): 024122498 Plan: 1patient presented hospital with abdominal pain did have evidence of effusion no acute abdominal date abdominal pelvis except evidence of bilateral effusion and the patient did have slightly respiratory compromise mild cough concern for possible pneumonia not entirely excluded with the predominant abdominal symptoms and evidence of elevated lactic acid we will need to cover for the enteric gram- negative both aerobes and anaerobes 2-patient with borderline kidney function high risk of nephrotoxicity from vancomycin 3-patient did have elevated CRP however procalcitonin Was mildly elevated at 0.20 4nt antibiotic has been discontinued, patient has been complaining of diarrhea more likely antibiotic associated and should improve we will go ahead and check a stool for C. difficile will treat if positive, add Questran for symptomatic relief Time with Patient: Less than 30
[2022-12-06] MEDS: MORPHINE SULFATE 2 MG/ML SYRINGE IVP PRN ×2 (00:04→17:18)
[2022-12-06] MEDS: ALPRAZolam 0.5 MG TAB PO PRN ×2 (02:52→20:00)
[2022-12-06] MEDS: oxyCODONE-APAP 10-325MG 1 EACH TAB PO PRN ×3 (05:45→19:59)
[2022-12-06] MEDS: carvediloL 3.125 MG TAB PO SCH ×2 (06:50→17:18)
[2022-12-06] MEDS: HEPARIN SODIUM,PORCINE/PF 5,000 UNIT/0.5 ML SYRINGE SQ SCH ×2 (09:04→20:00)
[2022-12-06] MEDS: CHOLECALCIFEROL 25 MCG (1000 IU) TABLET PO SCH (09:04)
[2022-12-06] MEDS: DOCUSATE 100 MG CAP PO SCH (09:04)
[2022-12-06] MEDS: CLOPIDOGREL 75 MG TAB PO SCH (09:04)
[2022-12-06] MEDS: FUROSEMIDE 10 MG/ML 4 ML VIAL IV SCH (09:04)
[2022-12-06] MEDS: ASCORBIC ACID 500 MG TAB PO SCH (09:04)
[2022-12-06] MEDS: ASPIRIN 81 MG PO SCH (09:04)
[2022-12-06] MEDS: CHOLESTYRAMINE (WITH SUGAR) 4 GM PACKET PO SCH ×2 (09:25→17:24)
[2022-12-06] MEDS: PANTOPRAZOLE 40 MG/10 ML VIAL IV SCH (09:25)
[2022-12-06 10:23] LABS: ALT 27 U/L (4-49); AST 31 U/L (17-59); African American GFR (CKD) 59 (>60 ml/min/1.73 sqM); Albumin 2.8 g/dL (3.5-5.0); Alkaline Phosphatase 94 U/L (38-126); Anion Gap 9 mmol/L; Blood Urea Nitrogen 28 mg/dL (9-20); Calcium 8.2 mg/dL (8.4-10.2); Carbon Dioxide 28 mmol/L (22-30); Chloride 97 mmol/L (98-107); Glucose 114 mg/dL (74-99); Non-African American GFR(CKD) 51 (>60 ml/min/1.73 sqM); Sodium 134 mmol/L (137-145); Total Bilirubin 0.7 mg/dL (0.2-1.3); Total Protein 5.5 g/dL (6.3-8.2)
[2022-12-06 10:26] LABS: Basophils % (A) 0 %; Eosinophils # (A) 0.2 k/uL (0-0.7); Eosinophils % (A) 1 %; HCT 37.4 % (39.0-53.0); HGB 11.6 gm/dL (13.0-17.5); Hypochromasia Marked; Lymphocytes # (A) 1.1 k/uL (1.0-4.8); Lymphocytes % (A) 10 %; MCH 29.1 pg (25.0-35.0); Mean Platelet Volume 9.9; Monocytes # (A) 0.7 k/uL (0-1.0); Monocytes % (A) 6 %; Neutrophils # (A) 8.5 k/uL (1.3-7.7); Neutrophils % (A) 80 %; RBC 3.97 m/uL (4.30-5.90); RDW 15.3 % (11.5-15.5); WBC 10.5 k/uL (3.8-10.6)
[2022-12-06 10:38] LABS: Platelet Count 195 k/uL (150-450)
[2022-12-06 10:42] LABS: Potassium 2.8 mmol/L (3.5-5.1)
[2022-12-06] MEDS ORDERED: Potassium Replacement Protocol 1 EACH MISC MISCELLANE PRN (10:43)
--- NOTE | 2022-12-06 11:53 | P.PN ---
Subjective Progress Note Date: 12/06/22 The patient is a 77-year-old male who follows in the office with Dr. BETI Chisholm. He is currently admitted to the hospital with abdominal discomfort. He was seen and evaluated on the medical floor, after being consulted for abnormal troponins. There are flat trend and not indicative of ACS. A team was notified later that the patient had an episode of presyncope with associated bradycardia and diaphoresis. He was subsequently transferred to the ICU. Chest x-ray showed mild right lower lobe infiltrate and small left pleural effusion. Device was interrogated. No evidence of device malfunction or arrhythmia. The patient returned to the stepdown unit and continues to have abdominal flank pain. No chest pain or chest pressure. No difficulty breathing. GENERAL: Ill-appearing, well-nourished and in no acute distress. NECK: Supple without JVD or thyromegaly. LUNGS: Breath sounds diminished to auscultation bilaterally. Respiration equal and unlabored. No wheezes, rales or rhonchi. HEART: Regular rate and rhythm without murmurs, rubs or gallops. S1 and S2 heard. EXTREMITIES: Normal range of motion, no edema. No clubbing or cyanosis. Peripheral pulses intact and strong. VITALS: Blood pressure 128/67, pulse 67, afebrile, respiratory rate 18, SpO2 97% on 2 L nasal cannula TELEMETRY: Sinus rhythm. LABS: WBC 10.5, hemoglobin 11.6, hematocrit 37.4, platelets 195, sodium 134, potassium 2.8, BUN 28, creatinine 1.34, AST 31, ALT 27 IMPRESSION: Abdominal discomfort Elevated troponins, not indicative of ACS Chronic kidney disease Chronic congestive heart failure with reduced ejection fraction Ascending aortic aneurysm Coronary artery disease with prior CABG and stenting Ischemic cardiomyopathy status post AICD Ventricular tachycardia Hypokalemia, supplemented per protocol PLAN: Continue current medication regimen Patient to be discharged without sotalol as he has elevated kidney function Consideration for amiodarone should the patient develope refractory ventricular tachycardia Surgical team to evaluate for possible ischemic bowel with continued abdominal and flank pain No further recommendations from the cardiac standpoint I am dictating on behalf of Dr Hunter Perez's history/physical and assessment/plan. Objective - Vital Signs Vital signs: Vital Signs Temp 97.4 F L 12/06/22 09:00 Pulse 67 12/06/22 09:00 Resp 18 12/06/22 09:00 BP 128/67 12/06/22 09:00 Pulse Ox 97 12/06/22 09:00 FiO2 Intake & Output 12/05/22 12/06/22 12/06/22 18:59 06:59 18:59 Intake Total 460 1075 10 Output Total 754 325 Balance -294 750 10 Weight 60.5 kg Intake: IV 10 Invasive Line 5 10 Oral 460 1075 Output: Gastric Drainage 0 Urine 375 325 Uretheral (Abrams) 375 Post Void Residual 379 Stool 0 Urine/Stool Mix 0 Emesis 0 Oral Regurgitation 0 Other 0 Other: Voiding Method Toilet Toilet Urinal Urinal # Voids 0 1 1 # Bowel Movements 0 1 1 - Labs CBC & Chem 7: 12/06/22 08:06 12/06/22 08:06 Labs: Abnormal Lab Results - Last 24 Hours (Table) 12/06/22 12/06/22 Range/Units 08:06 08:06 RBC 3.97 L (4.30-5.90) m/uL Hgb 11.6 L (13.0-17.5) gm/dL Hct 37.4 L (39.0-53.0) % Neutrophils # 8.5 H (1.3-7.7) k/uL Sodium 134 L (137-145) mmol/L Potassium 2.8 L (3.5-5.1) mmol/L Chloride 97 L (98-107) mmol/L BUN 28 H (9-20) mg/dL Creatinine 1.34 H (0.66-1.25) mg/dL Glucose 114 H (74-99) mg/dL Calcium 8.2 L (8.4-10.2) mg/dL Total Protein 5.5 L (6.3-8.2) g/dL Albumin 2.8 L (3.5-5.0) g/dL Microbiology - Last 24 Hours (Table) 12/02/22 11:50 Blood Culture - Preliminary Blood
--- NOTE | 2022-12-06 12:19 | P.PN ---
Subjective Progress Note Date: 12/06/22 I am seeing this patient in new consultation today 12/03/2022 in the intensive care unit after the patient was A-teamed, and transferred to the intensive care unit yesterday for worsening abdominal pain and shortness of breath. The patient is a 77-year-old male with past medical history significant for COPD, intermittent oxygen use at home, severe ischemic cardiomyopathy with ejection fraction of 20%, prior ventricular tachycardia, AICD/pacemaker implant, coronary artery disease status post CABG, prior myocardial infarction and cardiac stents,hypertension, hyperlipidemia, kidney stones, prostate disorder,and is an ex-smoker. Patient presented in the emergency room on November 30 complaining of generalized upper abdominal pain. No reports of nausea, vomiting, or constipation. Admits intermittent diarrhea. He is also reporting intermittent shortness of breath over the last month. This has been associated with fever, chills, and a minimally productive cough. CT of abdomen and pelvis without c ontrast on arrival did not show any acute intraabdominal process. It did show some more chronic changes including an aneurysmal ascending or aorta measuring 4.6 cm, bladder wall thickening or distention, minimal free fluid in the posterior pelvis/presacral edema, a surgically absent gallbladder, and billiary system dilation. It also showed moderate left and small right pleural effusions.the patient was admitted to the floor, and an A-team was called yesterday morning for concerns of worsening abdominal pain and shortness of breath. The patient also had a transient episode of bradycardia and hyperkalemia which was treated with K-cocktail and improved. The patient does have a pacemaker. Lactic acid level was also elevated at 4. Blood pressure was stable, and did not require vasopressors. Patient was transferred to the intensive care unit. A follow-up CT of the chest/abdomen/pelvis with contrast, again showed no acute intra-abdominal process. It did show evidence of heart failure with cardiomegaly, trace bilateral pleural effusions, and pulmonary vascular congestion. There are some chronic emphysematous changes. There is redemonstration of the prior findings. Patient is currently sitting up in bed, on 3 L nasal cannula, in no acute distress. Chest x-ray from yesterday morning shows a possible developing right lower lobe infiltrate. There is also a suspected small left pleural effusion. Patient is empirically covered on Zosyn. He is afebrile. Procalcitonin level was mildly elevated at 0.2. He has multiple general complaints, and is technically a poor historian. He is telling me that he has bilateral flank pain and abdominal pain. Urinalysis was not concerning for UTI. Most recent CBC from yesterday morning shows a WBC count of 11, hemoglobin 12, hematocrit 39, platelets 247. BMP from yesterday shows sodium 134, potassium 4.9, chloride 107, serum bicarb 15, BUN 40, creatinine 1.85, glucose 127. Lactic acid level is down to 2.4. He has been given a total of 2 L normal saline bolus. The patient does have a component of metabolic acidosis, and currently has sodium bicarb 3 A in D5W infusing at 50 ML's per hour. LFTs are mildly elevated. Troponins are elevated at 0.15, 0.15, 0.11 respectively. ECG on arrival shows no acute ischemic changes. Patient will be monitored in the intensive care unit. On today's evaluation of 12/04/2022, the patient is sitting up on a chair. His abdominal pain is subsided significantly. He is hemodynamically stable. He was resuscitated IV fluids and the patient was given bicarb infusion the bicarb deficit was corrected and serum bicarbs of 24. Lactic acid level is also improved. The patient is producing urine output in the order of 30 mL an hour. Creatinine is stable at 1.5. Pro-calcitonin level was 0.2. The WBC count is at 4.8 with a hemoglobin 10.2 and a platelet count of 123. The patient has no specific complaints. Tolerating his diet. He remains on IV Zosyn. He is also receiving Lasix 40 mg IV every 24 hours. Chest x-ray shows a left-sided pleural effusion. This was drained in the past and this was consistent with CHF. No chest pain. He is currently on 4 L of O2 nasal cannula., Comfortable. No specific complaint otherwise for now. On 12/05/2022, the patient is stable. No new complaints. He is having some diarrhea and I suggested to start IV Zosyn and check the patient for stool C. d iff infection. Respiratory status is stable. Remains on Lasix 40 mg IV every 24 hours. BUN is at 32 with a creatinine of 1.39 and a sodium levels of 133 with a potassium level of 3.7. He remains on oxygen and is currently on 2 L with a pulse ox of 93%. No worsening in respiratory status. He is afebrile and hemodynamically stable On today's evaluation of 12/06/2022, the patient continues to have some pain in the abdomen and flank area. No new complaints. No nausea or vomiting. No chest pain or shortness of breath. He is having diarrhea. I checked stool for C. diff and that came back negative. Noted the patient had 2 episodes of diarrhea yesterday and another episode today. Possibility of ischemic colitis needs to be considered in this patient especially that the patient has severe atherosclerosis of the aorta and impaired LV function. The vesicles of 10, hemoglobin 11.6 and a platelet count is 195. BUN is at 28 with a creatinine of 1.34 and a sodium level is at 134. Stool for C. diff has been negative. Objective - Vital Signs Vital signs: Vital Signs Temp 97.4 F L 12/06/22 09:00 Pulse 67 12/06/22 09:00 Resp 18 12/06/22 09:00 BP 128/67 12/06/22 09:00 Pulse Ox 97 12/06/22 09:00 FiO2 Intake & Output 12/05/22 12/06/22 12/06/22 18:59 06:59 18:59 Intake Total 460 1075 Output Total 754 325 Balance -294 750 Weight 60.5 kg Intake: Oral 460 1075 Output: Gastric Drainage 0 Urine 375 325 Uretheral (Abrams) 375 Post Void Residual 379 Stool 0 Urine/Stool Mix 0 Emesis 0 Oral Regurgitation 0 Other 0 Other: Voiding Method Toilet Urinal # Voids 0 1 # Bowel Movements 0 1 - Exam GENERAL EXAM: Alert, 77-year-old male, comfortable in no apparent distress. The patient is currently on 2 L O2 with a nasal cannula HEAD: Normocephalic and atraumatic EYES: Normal reaction of pupils, equal size. NOSE: Clear with pink turbinates. THROAT: No erythema or exudates. NECK: No masses, no JVD. CHEST: No chest wall deformity. Old sternotomy incision. Left chest wall implanted device LUNGS: Equal air entry with fine right lower lobe inspiratory crackles. No wheeze, rhonchi or dullness. No conversational dyspnea or accessory muscle use.. CVS: S1 and S2 normal with no audible murmur, regular rhythm. No extra heart sounds ABDOMEN: No hepatosplenomegaly, active bowel sounds, no guarding or rigidity. SPINE: No scoliosis or deformity. No flank bruising or meadows's sign. SKIN: No rashes. CENTRAL NERVOUS SYSTEM: No focal deficits, tone is normal in all 4 extremities. EXTREMITIES: There is no peripheral edema, clubbing, or cyanosis. Peripheral pulses are intact. - Labs CBC & Chem 7: 12/06/22 08:06 12/06/22 08:06 Labs: Microbiology - Last 24 Hours (Table) 12/02/22 11:50 Blood Culture - Preliminary Blood Assessment and Plan Assessment: Abdominal and bilateral flank pain, currently under investigation. CT of the chest/abdomen/pelvis shows no acute intra-abdominal process. The abdominal pain is subsided. The patient is currently having diarrhea, rule out antibiotic induced diarrhea, stool for C. diff has been negative. Rule out underlying ischemic colitis. Acute on chronic hypoxemic respiratory failure, possibly multifactorial related to a developing right lower lobe pneumonia and/or mild CHF exacerbation with reduced ejection fraction. Currently on 4 L per minute nasal cannula. Chest x- ray from yesterday morning shows possible developing right lower lobe infiltrate. Procalcitonin level is mildly elevated at 0.2. Chest/abdominal/pelvic CT also showed evidence of heart failure with cardiomega ly, bilateral pleural effusions, and pulmonary vascular congestion. The patient continues to have a left-sided pleural effusion without any significant respiratory distress and the fluid is related to his underlying congestion heart failure. Chronic obstructive pulmonary disease, stable Hyperkalemia, improved Metabolic acidosis secondary to lactic acidemia, improved and the patient's serum bicarb has normalized Elevated troponins, possibly related supplies/demand mismatch Ischemic cardiomyopathy, with a baseline ejection fraction of less than 20%, and prior episodes of ventricular tachycardia status post AICD/pacemaker insertion Acute on chronic kidney disease, creatinine is 1.39 Benign essential hypertension Hyperlipidemia Coronary artery disease with prior myocardial infarction and cardiac stents x5 Ascending aortic aneurysm measuring 4.6 cm Degenerative joint disease Obstructive sleep apnea History of nephrolithiasis History of cholecystectomy Ex-smoker plan: Discontinued IV Zosyn Check stool for C. diff and the results came back negative This is a CT of the aorta and this will be discussed with vascular surgery and the concern obviously would be contrast nephropathy Continue Lasix 40 mg IV every 24 hours Wean down FiO2 as tolerated, currently on 2 L Continue supplemental oxygen Continue empiric antibiotics Procalcitonin level was mildly elevated at 0.2 Blood cultures are pending, negative thus far monitor electrolytes, especially potassium He is tolerating diet and he was given regular heart healthy diet.
[2022-12-06] MEDS: POTASSIUM CHLORIDE ER 20 MEQ TAB.ER PO SCH ×3 (12:36→14:16)
--- NOTE | 2022-12-06 13:40 | P.PN ---
Subjective Progress Note Date: 12/06/22 The patient is a 77-year-old male with a known history of severe ischemic cardiac myopathy, status post ICD implantation, status post CABG and PCI, he underwent PCI of the left main and circumflex in [place] [address] Chisholm with mechanical support. He has a patent WHITE to the LAD and patent radial to the right PDA was occluded SVG to the PLV who presented to the hospital because of abdominal pain and nausea and vomiting. Patient stated that he has been having abdominal pain for last couple of days, pain is located in the upper part of the abdomen and is going to his back. Denies any chest pain. Does complain of worsening shortness of breath. Because of the abdominal pain patient came to the ER Initial lab work in the ER showed WBC 6.6, hemoglobin 11.7, platelet count 258, sodium 133, potassium 5.1, BUN 27, creatinine 1.58 CT Abdomen pelvis showed moderate left and small right pleural effusions, left lower lobe atelectasis, partially visualized aneurysmal aorta of 4.6 cm Patient was admitted to medicine service for further evaluation and treatment 12/02. Patient seen and examined. Patient had rapid response called because of feeling of being cold and clammy, patient also having pain in his belly. Complaining of shortness of breath at rest. When the aide team arrived, patient blood pressure was stable but heart rate dipped into 30s. EKGs was ordered, stat CBC CMP, chest x-ray ordered. Patient was transferred to ICU 12/03. Patient seen and examined. Blood work done this morning showed white count 11.2, hemoglobin 10.5. Sodium 134, potassium 4.9, chloride 105, BUN 44, creatinine 1.63 Patient states he feels much better. States flank pain is also improved. States she has poor appetite, discussed with him regarding the need for him to eat 12/04. Patient seen and examined. Laying comfortably in the chair. States he feels better. Currently on 4 L of oxygen. Continues to complain of poor appetite 12/05. Patient seen and examined. Patient is transferred out of ICU. Sodium this morning is 133, potassium 3.7, BUN 32, creatinine 1.39. Currently on 2 L of oxygen. Complaining of abdominal pain. Tolerating diet. 12/06. Patient seen and examined. WBC 10.5, hemoglobin 11.6, sodium 134, potassium 2.8, BUN 28, creatinine 1.34. Potassium placement ordered. Complaining of diarrhea, had up to 2 loose stools this morning, same number of stools yesterday REVIEW OF SYSTEMS: CONSTITUTIONAL: Denies lethargy CARDIOVASCULAR: No chest pain, PULMONARY: States breathing has improved GASTROINTESTINAL: Complaining of diarrhea,. Abdominal pain improved NEUROLOGICAL: No headaches, no weakness, PHYSICAL EXAMINATION: GENERAL: The patient is alert and oriented x3, not in any acute distress HEENT: Pupils are round and equally reacting to light. EOMI. No scleral icterus. No conjunctival pallor. Normocephalic, atraumatic. No pharyngeal erythema. No thyromegaly. CARDIOVASCULAR: S1 and S2 present. No murmurs, rubs, or gallops. PULMONARY: Coarse breath sounds bilaterally ABDOMEN: Soft, nontender, nondistended, normoactive bowel sounds. No palpable organomegaly. MUSCULOSKELETAL: No joint swelling or deformity. EXTREMITIES: No cyanosis, clubbing, or pedal edema. Extremities are cold to touch NEUROLOGICAL: Gross neurological examination did not reveal any focal deficits. SKIN: No rashes. Assessment and plan Acute on chronic hypoxic respiratory failure Bradycardia Bacterial Pneumonia Hyperkalemia Abdominal pain Nausea and vomiting Elevated troponin History of ischemic cardiomyopathy with most recent EF of 20% History of CABG with stenting Permanent pacemaker AICD in 2019 History of fibromyalgia Hyperlipidemia COPD, not an exacerbation hypertension Monitor vital signs Monitor CBC Monitor CMP Continue telemetry monitoring Follow-up on blood cultures Potassium this morning is 2.8, replacement ordered Continue Questran for diarrhea Continue pain management with Percocet 10 mg every 6 hourly when necessary and IV morphine 2 mg every 8 hourly when necessary Continue IV Lasix 40 mg daily Follow-up on ID recommendations Critical care following Follow-up on cardiology recommendations, they signed off, outpatient follow up with guardian Objective - Vital Signs Vital signs: Vital Signs Temp 97.4 F L 12/06/22 09:00 Pulse 67 12/06/22 09:00 Resp 18 12/06/22 09:00 BP 128/67 12/06/22 09:00 Pulse Ox 97 12/06/22 09:00 FiO2 Intake & Output 12/05/22 12/06/22 12/06/22 18:59 06:59 18:59 Intake Total 460 1075 Output Total 754 325 Balance -294 750 Weight 60.5 kg Intake: Oral 460 1075 Output: Gastric Drainage 0 Urine 375 325 Uretheral (Abrams) 375 Post Void Residual 379 Stool 0 Urine/Stool Mix 0 Emesis 0 Oral Regurgitation 0 Other 0 Other: Voiding Method Toilet Urinal # Voids 0 1 1 # Bowel Movements 0 1 1 - Labs CBC & Chem 7: 12/06/22 08:06 12/06/22 08:06 Labs: Abnormal Lab Results - Last 24 Hours (Table) 12/06/22 12/06/22 Range/Units 08:06 08:06 RBC 3.97 L (4.30-5.90) m/uL Hgb 11.6 L (13.0-17.5) gm/dL Hct 37.4 L (39.0-53.0) % Neutrophils # 8.5 H (1.3-7.7) k/uL Sodium 134 L (137-145) mmol/L Potassium 2.8 L (3.5-5.1) mmol/L Chloride 97 L (98-107) mmol/L BUN 28 H (9-20) mg/dL Creatinine 1.34 H (0.66-1.25) mg/dL Glucose 114 H (74-99) mg/dL Calcium 8.2 L (8.4-10.2) mg/dL Total Protein 5.5 L (6.3-8.2) g/dL Albumin 2.8 L (3.5-5.0) g/dL Microbiology - Last 24 Hours (Table) 12/02/22 11:50 Blood Culture - Preliminary Blood
[2022-12-06] MEDS: ATORVASTATIN 80 MG TAB PO SCH (20:00)
[2022-12-07] MEDS: MORPHINE SULFATE 2 MG/ML SYRINGE IVP PRN ×2 (02:26→11:29)
[2022-12-07] MEDS: oxyCODONE-APAP 10-325MG 1 EACH TAB PO PRN ×4 (03:15→18:55)
[2022-12-07] MEDS: carvediloL 3.125 MG TAB PO SCH ×2 (06:21→17:16)
[2022-12-07 07:20] LABS: Glucose,Whole Blood 136 mg/dL (70-110)
[2022-12-07] MEDS: ASPIRIN 81 MG PO SCH (07:58)
[2022-12-07] MEDS: HEPARIN SODIUM,PORCINE/PF 5,000 UNIT/0.5 ML SYRINGE SQ SCH ×2 (07:58→23:21)
[2022-12-07] MEDS: PANTOPRAZOLE 40 MG/10 ML VIAL IV SCH (07:59)
[2022-12-07] MEDS: CHOLECALCIFEROL 25 MCG (1000 IU) TABLET PO SCH (07:59)
[2022-12-07] MEDS: DOCUSATE 100 MG CAP PO SCH ×2 (07:59→08:02)
[2022-12-07] MEDS: CLOPIDOGREL 75 MG TAB PO SCH (07:59)
[2022-12-07] MEDS: FUROSEMIDE 10 MG/ML 4 ML VIAL IV SCH (07:59)
[2022-12-07] MEDS: ASCORBIC ACID 500 MG TAB PO SCH (07:59)
[2022-12-07 08:47] LABS: ALT 25 U/L (4-49); AST 27 U/L (17-59); African American GFR (CKD) 64 (>60 ml/min/1.73 sqM); Albumin 2.4 g/dL (3.5-5.0); Alkaline Phosphatase 83 U/L (38-126); Anion Gap 5 mmol/L; Blood Urea Nitrogen 23 mg/dL (9-20); Calcium 7.8 mg/dL (8.4-10.2); Carbon Dioxide 31 mmol/L (22-30); Chloride 100 mmol/L (98-107); Glucose 117 mg/dL (74-99); Non-African American GFR(CKD) 55 (>60 ml/min/1.73 sqM); Potassium 3.9 mmol/L (3.5-5.1); Sodium 136 mmol/L (137-145); Total Bilirubin 0.5 mg/dL (0.2-1.3); Total Protein 4.9 g/dL (6.3-8.2)
[2022-12-07 09:06] LABS: Basophils % (A) 0 %; Eosinophils # (A) 0.2 k/uL (0-0.7); Eosinophils % (A) 3 %; HCT 33.3 % (39.0-53.0); HGB 10.6 gm/dL (13.0-17.5); Hypochromasia Marked; Lymphocytes % (A) 11 %; MCH 29.7 pg (25.0-35.0); MCHC 31.8 g/dL (31.0-37.0); MCV 93.4 fL (80.0-100.0); Mean Platelet Volume 9.5; Monocytes % (A) 11 %; Neutrophils # (A) 6.2 k/uL (1.3-7.7); Neutrophils % (A) 71 %; Platelet Count 227 k/uL (150-450); RBC 3.57 m/uL (4.30-5.90); RDW 15.1 % (11.5-15.5); WBC 8.7 k/uL (3.8-10.6)
--- NOTE | 2022-12-07 11:16 | US ---
EXAMINATION TYPE: US chest DATE OF EXAM: 12/07/2022 COMPARISON: NONE CLINICAL INDICATION: Male, 77 years old with history of Left pleural effusion; left pleural effusion TECHNIQUE: Targeted ultrasound of the posterior lower left hemithorax EXAM MEASUREMENTS: Left Pleural Effusion pocket size: 8.6 cm Left skin surface to fluid distance: 2.2 cm Left side marked for possible thoracentesis outside the dept. Pulmonologists are able to review the images in the patient?s EMR. IMPRESSIONS: Left pleural effusion marked for thoracentesis.
[2022-12-07] MEDS: CHOLESTYRAMINE (WITH SUGAR) 4 GM PACKET PO SCH ×2 (11:29→17:16)
[2022-12-07] MEDS ORDERED: BISMUTH SUBSALICYLATE 4,192 MG/240 ML BOTTLE PO PRN (11:45)
--- NOTE | 2022-12-07 13:54 | P.PN ---
Subjective Progress Note Date: 12/07/22 Principal diagnosis: Acute on chronic hypoxic respiratory failure, multifactorial I am seeing this patient in new consultation today 12/03/2022 in the intensive care unit after the patient was A-teamed, and transferred to the intensive care unit yesterday for worsening abdominal pain and shortness of breath. The patient is a 77-year-old male with past medical history significant for COPD, intermittent oxygen use at home, severe ischemic cardiomyopathy with ejection fraction of 20%, prior ventricular tachycardia, AICD/pacemaker implant, coronary artery disease status post CABG, prior myocardial infarction and cardiac stents,hypertension, hyperlipidemia, kidney stones, prostate disorder,and is an ex-smoker. Patient presented in the emergency room on November 30 complaining of generalized upper abdominal pain. No reports of nausea, vomiting, or constipation. Admits intermittent diarrhea. He is also reporting intermittent shortness of breath over the last month. This has been associated with fever, chills, and a minimally productive cough. CT of abdomen and pelvis without contrast on arrival did not show any acute intraabdominal process. It did show some more chronic changes including an aneurysmal ascending or aorta measuring 4.6 cm, bladder wall thickening or distention, minimal free fluid in the posterior pelvis/presacral edema, a surgically absent gallbladder, and billiary system dilation. It also showed moderate left and small right pleural effusions.the patient was admitted to the floor, and an A-team was called yesterday morning for concerns of worsening abdominal pain and shortness of breath. The patient also had a transient episode of bradycardia and hyperkalemia which was treated with K-cocktail and improved. The patient does have a pacemaker. Lactic acid level was also elevated at 4. Blood pressure was stable, and did not require vasopressors. Patient was transferred to the intensive care unit. A follow-up CT of the chest/abdomen/pelvis with contrast, again showed no acute intra-abdominal process. It did show evidence of heart failure with cardiomegaly, trace bilateral pleural effusions, and pulmonary vascular congestion. There are some chronic emphysematous changes. There is redemonstration of the prior findings. Patient is currently sitting up in bed, on 3 L nasal cannula, in no acute distress. Chest x-ray from yesterday morning shows a possible developing right lower lobe infiltrate. There is also a suspected small left pleural effusion. Patient is empirically covered on Zosyn. He is afebrile. Procalcitonin level was mildly elevated at 0.2. He has multiple general complaints, and is technically a poor historian. He is telling me that he has bilateral flank pain and abdominal pain. Urinalysis was not concerning for UTI. Most recent CBC from yesterday morning shows a WBC count of 11, hemoglobin 12, hematocrit 39, platelets 247. BMP from yesterday shows sodium 134, potassium 4.9, chloride 107, serum bicarb 15, BUN 40, creatinine 1.85, glucose 127. Lactic acid level is down to 2.4. He has been given a total of 2 L normal saline bolus. The patient does have a component of metabolic acidosis, and currently has sodium bicarb 3 A in D5W infusing at 50 ML's per hour. LFTs are mildly elevated. Troponins are elevated at 0.15, 0.15, 0.11 respectively. ECG on arrival shows no acute ischemic changes. Patient will be monitored in the intensive care unit. On today's evaluation of 12/04/2022, the patient is sitting up on a chair. His abdominal pain is subsided significantly. He is hemodynamically stable. He was resuscitated IV fluids and the patient was given bicarb infusion the bicarb deficit was corrected and serum bicarbs of 24. Lactic acid level is also improved. The patient is producing urine output in the order of 30 mL an hour. Creatinine is stable at 1.5. Pro-calcitonin level was 0.2. The WBC count is at 4.8 with a hemoglobin 10.2 and a platelet count of 123. The patient has no sp ecific complaints. Tolerating his diet. He remains on IV Zosyn. He is also receiving Lasix 40 mg IV every 24 hours. Chest x-ray shows a left-sided pleural effusion. This was drained in the past and this was consistent with CHF. No chest pain. He is currently on 4 L of O2 nasal cannula., Comfortable. No specific complaint otherwise for now. On 12/05/2022, the patient is stable. No new complaints. He is having some diarrhea and I suggested to start IV Zosyn and check the patient for stool C. diff infection. Respiratory status is stable. Remains on Lasix 40 mg IV every 24 hours. BUN is at 32 with a creatinine of 1.39 and a sodium levels of 133 with a potassium level of 3.7. He remains on oxygen and is currently on 2 L with a pulse ox of 93%. No worsening in respiratory status. He is afebrile and hemodynamically stable On today's evaluation of 12/06/2022, the patient continues to have some pain in the abdomen and flank area. No new complaints. No nausea or vomiting. No chest pain or shortness of breath. He is having diarrhea. I checked stool for C. diff and that came back negative. Noted the patient had 2 episodes of diarrhea yesterday and another episode today. Possibility of ischemic colitis needs to be considered in this patient especially that the patient has severe atherosclerosis of the aorta and impaired LV function. The vesicles of 10, hemoglobin 11.6 and a platelet count is 195. BUN is at 28 with a creatinine of 1.34 and a sodium level is at 134. Stool for C. diff has been negative. Reevaluated today on 12/07/2022, patient is marginal at best, continues to have shortness of breath with any activity, his last chest x-ray showed significant left-sided pleural effusion this was confirmed by ultrasound that I ordered and reviewed on the patient today. Hence I would likely recommend left-sided thoracentesis on this patient in the next 24 hours. In the meantime the patient being evaluated for his abdominal pain and diarrhea. Patient does have severe LV dysfunction, and he has what seems to be a picture of ischemic cardiomyopathy and acute on chronic kidney disease Objective - Vital Signs Vital signs: Vital Signs Temp 98.1 F 12/07/22 07:50 Pulse 71 12/07/22 13:06 Resp 20 12/07/22 11:27 BP 142/75 12/07/22 11:27 Pulse Ox 91 L 12/07/22 11:27 FiO2 Intake & Output 12/06/22 12/07/22 12/07/22 18:59 06:59 18:59 Intake Total 140 961 Output Total 400 100 200 Balance -260 861 -200 Weight 66.5 kg Intake: IV 20 20 Invasive Line 5 20 20 Oral 120 941 Output: Urine 400 100 200 Other: Voiding Method Toilet Toilet Urinal Urinal Urinal Diaper Incontinent # Voids 1 1 # Bowel Movements 1 - Exam GENERAL EXAM: Alert, 77-year-old male, looks frail and chronically ill, liters nasal cannula HEAD: Normocephalic and atraumatic EYES: Normal reaction of pupils, equal size. NOSE: Clear with pink turbinates. THROAT: No erythema or exudates. NECK: No masses, no JVD. CHEST: Diminished breath sounds and dullness at the left base. Symmetrical chest expansion CVS: S1 and S2 normal with no audible murmur, regular rhythm. No extra heart sounds ABDOMEN: No hepatosplenomegaly, active bowel sounds, no guarding or rigidity. SKIN: No rashes. CENTRAL NERVOUS SYSTEM: Looks generally weak otherwise no focal deficits EXTREMITIES: No clubbing edema or cyanosis. - Labs CBC & Chem 7: 12/07/22 06:57 12/07/22 06:57 Labs: Abnormal Lab Results - Last 24 Hours (Table) 12/07/22 12/07/22 12/07/22 Range/Units 06:57 06:57 07:18 RBC 3.57 L (4.30-5.90) m/uL Hgb 10.6 L (13.0-17.5) gm/dL Hct 33.3 L (39.0-53.0) % Sodium 136 L (137-145) mmol/L Carbon Dioxide 31 H (22-30) mmol/L BUN 23 H (9-20) mg/dL Glucose 117 H (74-99) mg/dL POC Glucose (mg/dL) 136 H (70-110) mg/dL Calcium 7.8 L (8.4-10.2) mg/dL Total Protein 4.9 L (6.3-8.2) g/dL Albumin 2.4 L (3.5-5.0) g/dL Assessment and Plan Assessment: Impression: Acute on chronic hypoxic respiratory failure secondary to acute community- acquired pneumonia and acute systolic congestive heart failure with left-sided pleural effusion Nonspecific abdominal pain and discomfort, resolved Chronic obstructive pulmonary disease Ischemic cardiomyopathy and LV dysfunction and ejection fraction less than 20% Acute on chronic kidney disease Coronary arteriosclerosis and multiple stents placement Ascending aortic aneurysm 4.6 cm Obstructive sleep apnea syndrome Ex-smoker Recommendation: Left sided thoracentesis is planned to be done in a.m. Continue present supportive care measures Continue diuretics Continue to monitor electrolytes specially potassium Not quite ready for discharge planning We will continue to follow. Time with Patient: Less than 30
--- NOTE | 2022-12-07 14:03 | P.PN ---
Subjective Progress Note Date: 12/07/22 The patient is a 77-year-old male with a known history of severe ischemic cardiac myopathy, status post ICD implantation, status post CABG and PCI, he underwent PCI of the left main and circumflex in [place] [address] Chisholm with mechanical support. He has a patent WHITE to the LAD and patent radial to the right PDA was occluded SVG to the PLV who presented to the hospital because of abdominal pain and nausea and vomiting. Patient stated that he has been having abdominal pain for last couple of days, pain is located in the upper part of the abdomen and is going to his back. Denies any chest pain. Does complain of worsening shortness of breath. Because of the abdominal pain patient came to the ER Initial lab work in the ER showed WBC 6.6, hemoglobin 11.7, platelet count 258, sodium 133, potassium 5.1, BUN 27, creatinine 1.58 CT Abdomen pelvis showed moderate left and small right pleural effusions, left lower lobe atelectasis, partially visualized aneurysmal aorta of 4.6 cm Patient was admitted to medicine service for further evaluation and treatment 12/02. Patient seen and examined. Patient had rapid response called because of feeling of being cold and clammy, patient also having pain in his belly. Complaining of shortness of breath at rest. When the aide team arrived, patient blood pressure was stable but heart rate dipped into 30s. EKGs was ordered, stat CBC CMP, chest x-ray ordered. Patient was transferred to ICU 12/03. Patient seen and examined. Blood work done this morning showed white count 11.2, hemoglobin 10.5. Sodium 134, potassium 4.9, chloride 105, BUN 44, creatinine 1.63 Patient states he feels much better. States flank pain is also improved. States she has poor appetite, discussed with him regarding the need for him to eat 12/04. Patient seen and examined. Laying comfortably in the chair. States he feels better. Currently on 4 L of oxygen. Continues to complain of poor appetite 12/05. Patient seen and examined. Patient is transferred out of ICU. Sodium this morning is 133, potassium 3.7, BUN 32, creatinine 1.39. Currently on 2 L of oxygen. Complaining of abdominal pain. Tolerating diet. 12/06. Patient seen and examined. WBC 10.5, hemoglobin 11.6, sodium 134, potassium 2.8, BUN 28, creatinine 1.34. Potassium placement ordered. Complaining of diarrhea, had up to 2 loose stools this morning, same number of stools yesterday 12/07 seen and examined. Still complaining of flank pain. Gets short of breath on minimal exertion. Pulmonology recommended left-sided thoracentesis REVIEW OF SYSTEMS: CONSTITUTIONAL: Denies lethargy CARDIOVASCULAR: No chest pain, PULMONARY: States breathing has improved GASTROINTESTINAL: Flank pain NEUROLOGICAL: No headaches, no weakness, PHYSICAL EXAMINATION: GENERAL: The patient is alert and oriented x3, not in any acute distress HEENT: Pupils are round and equally reacting to light. EOMI. No scleral icterus. No conjunctival pallor. Normocephalic, atraumatic. No pharyngeal erythema. No thyromegaly. CARDIOVASCULAR: S1 and S2 present. No murmurs, rubs, or gallops. PULMONARY: Coarse breath sounds bilaterally ABDOMEN: Soft, nontender, nondistended, normoactive bowel sounds. No palpable organomegaly. MUSCULOSKELETAL: No joint swelling or deformity. EXTREMITIES: No cyanosis, clubbing, or pedal edema. Extremities are cold to touch NEUROLOGICAL: Gross neurological examination did not reveal any focal deficits. SKIN: No rashes. Assessment and plan Acute on chronic hypoxic respiratory failure Bradycardia Bacterial Pneumonia Hyperkalemia Abdominal pain Nausea and vomiting Elevated troponin History of ischemic cardiomyopathy with most recent EF of 20% History of CABG with stenting Permanent pacemaker AICD in 2019 History of fibromyalgia Hyperlipidemia COPD, not an exacerbation hypertension Monitor vital signs Monitor CBC Monitor CMP Continue telemetry monitoring Continue Questran for diarrhea Continue pain management with Percocet 10 mg every 4 hourly when necessary and IV morphine 2 mg every 8 hourly when necessary Continue IV Lasix 40 mg daily Follow-up on ID recommendations Pulmonary following, recommend left-sided thoracentesis, scheduled for tomorrow morning Follow-up on cardiology recommendations, they signed off, outpatient follow up with guardian Objective - Vital Signs Vital signs: Vital Signs Temp 97.8 F 12/07/22 04:36 Pulse 77 12/07/22 04:36 Resp 22 12/07/22 04:36 BP 143/67 12/07/22 04:36 Pulse Ox 95 12/07/22 04:36 FiO2 Intake & Output 12/06/22 12/07/22 12/07/22 18:59 06:59 18:59 Intake Total 140 961 Output Total 400 100 Balance -260 861 Weight 66.5 kg Intake: IV 20 20 Invasive Line 5 20 20 Oral 120 941 Output: Urine 400 100 Other: Voiding Method Toilet Toilet Urinal Urinal # Voids 1 1 # Bowel Movements 1 - Labs CBC & Chem 7: 12/07/22 06:57 12/07/22 06:57 Labs: Abnormal Lab Results - Last 24 Hours (Table) 12/06/22 12/06/22 12/07/22 Range/Units 08:06 08:06 06:57 RBC 3.97 L 3.57 L (4.30-5.90) m/uL Hgb 11.6 L 10.6 L (13.0-17.5) gm/dL Hct 37.4 L 33.3 L (39.0-53.0) % Neutrophils # 8.5 H (1.3-7.7) k/uL Sodium 134 L (137-145) mmol/L Potassium 2.8 L (3.5-5.1) mmol/L Chloride 97 L (98-107) mmol/L Carbon Dioxide (22-30) mmol/L BUN 28 H (9-20) mg/dL Creatinine 1.34 H (0.66-1.25) mg/dL Glucose 114 H (74-99) mg/dL POC Glucose (mg/dL) (70-110) mg/dL Calcium 8.2 L (8.4-10.2) mg/dL Total Protein 5.5 L (6.3-8.2) g/dL Albumin 2.8 L (3.5-5.0) g/dL 12/07/22 12/07/22 Range/Units 06:57 07:18 RBC (4.30-5.90) m/uL Hgb (13.0-17.5) gm/dL Hct (39.0-53.0) % Neutrophils # (1.3-7.7) k/uL Sodium 136 L (137-145) mmol/L Potassium (3.5-5.1) mmol/L Chloride (98-107) mmol/L Carbon Dioxide 31 H (22-30) mmol/L BUN 23 H (9-20) mg/dL Creatinine (0.66-1.25) mg/dL Glucose 117 H (74-99) mg/dL POC Glucose (mg/dL) 136 H (70-110) mg/dL Calcium 7.8 L (8.4-10.2) mg/dL Total Protein 4.9 L (6.3-8.2) g/dL Albumin 2.4 L (3.5-5.0) g/dL
[2022-12-07 14:04] VITALS: BMI 21.6
[2022-12-07] MEDS: ALPRAZolam 0.5 MG TAB PO PRN (18:58)
--- NOTE | 2022-12-07 20:18 | P.PN ---
Subjective Progress Note Date: 12/06/22 Principal diagnosis: Pneumonia Patient is a 77-year-old male with a past medical history significant for hypertension hyperlipidemia coronary artery disease COPD sleep apnea presented to hospital with abdominal and back pain which is bilateral effusion possible atelectasis/pneumonia and cystitis On today's evaluation that is 12/06/22 patient remains to be afebrile, the patient is breathing comfortably on 1 L nasal cannula oxygen., The patient having any chest pain or worsening cough or sputum production, the patient is abdominal pain however is still complaining of some diarrhea with few bowel movements today Objective - Vital Signs Vital signs: Vital Signs Temp 97.4 F L 12/06/22 09:00 Pulse 66 12/06/22 12:56 Resp 18 12/06/22 12:56 BP 120/62 12/06/22 12:56 Pulse Ox 95 12/06/22 12:56 FiO2 Intake & Output 12/05/22 12/06/22 12/06/22 18:59 06:59 18:59 Intake Total 460 1075 20 Output Total 754 325 400 Balance -294 750 -380 Weight 60.5 kg Intake: IV 20 Invasive Line 5 20 Oral 460 1075 Output: Gastric Drainage 0 Urine 375 325 400 Uretheral (Abrams) 375 Post Void Residual 379 Stool 0 Urine/Stool Mix 0 Emesis 0 Oral Regurgitation 0 Other 0 Other: Voiding Method Toilet Toilet Urinal Urinal # Voids 0 1 1 # Bowel Movements 0 1 1 - Exam GENERAL DESCRIPTION: An elderly male lying in bed in no distress RESPIRATORY SYSTEM: Unlabored breathing , decreased breath sounds at bases HEART: S1 S2 regular rate and rhythm , ABDOMEN: Soft , no tenderness EXTREMITIES: No edema feet - Labs CBC & Chem 7: 12/07/22 06:57 12/07/22 06:57 Labs: Abnormal Lab Results - Last 24 Hours (Table) 12/06/22 12/06/22 Range/Units 08:06 08:06 RBC 3.97 L (4.30-5.90) m/uL Hgb 11.6 L (13.0-17.5) gm/dL Hct 37.4 L (39.0-53.0) % Neutrophils # 8.5 H (1.3-7.7) k/uL Sodium 134 L (137-145) mmol/L Potassium 2.8 L (3.5-5.1) mmol/L Chloride 97 L (98-107) mmol/L BUN 28 H (9-20) mg/dL Creatinine 1.34 H (0.66-1.25) mg/dL Glucose 114 H (74-99) mg/dL Calcium 8.2 L (8.4-10.2) mg/dL Total Protein 5.5 L (6.3-8.2) g/dL Albumin 2.8 L (3.5-5.0) g/dL Microbiology - Last 24 Hours (Table) 12/02/22 11:50 Blood Culture - Preliminary Blood Assessment and Plan (1) Pneumonia Current Visit: Yes Status: Acute Code(s): J18.9 - PNEUMONIA, UNSPECIFIED OR GANISM SNOMED Code(s): 531182384 Plan: 1patient presented hospital with abdominal pain did have evidence of effusion no acute abdominal date abdominal pelvis except evidence of bilateral effusion and the patient did have slightly respiratory compromise mild cough concern for possible pneumonia not entirely excluded with the predominant abdominal symptoms and evidence of elevated lactic acid we will need to cover for the enteric gram-negative both aerobes and anaerobes 2-patient with borderline kidney function high risk of nephrotoxicity from vancomycin 3-patient did have elevated CRP however procalcitonin Was mildly elevated at 0.20 4the patient antibiotic has been discontinued, patient has been complaining of diarrhea more likely antibiotic associated , stool for C. diff is pending continue with the Questran Time with Patient: Less than 30
--- NOTE | 2022-12-07 20:20 | P.PN ---
Subjective Progress Note Date: 12/07/22 Principal diagnosis: Pneumonia Patient is a 77-year-old male with a past medical history significant for hypertension hyperlipidemia coronary artery disease COPD sleep apnea presented to hospital with abdominal and back pain which is bilateral effusion possible atelectasis/pneumonia and cystitis On today's evaluation that is 12/07/22 patient remains to be afebrile, the patient is breathing comfortably on 2 L nasal cannula oxygen., The patient having any chest pain however has been complaining of shortness of breath today did have occasional cough no nausea no vomiting no abdominal pain and diarrhea has slowed down Objective - Vital Signs Vital signs: Vital Signs Temp 98.1 F 12/07/22 07:50 Pulse 71 12/07/22 11:27 Resp 20 12/07/22 11:27 BP 142/75 12/07/22 11:27 Pulse Ox 91 L 12/07/22 11:27 FiO2 Intake & Output 12/06/22 12/07/22 12/07/22 18:59 06:59 18:59 Intake Total 140 961 Output Total 400 100 200 Balance -260 861 -200 Weight 66.5 kg Intake: IV 20 20 Invasive Line 5 20 20 Oral 120 941 Output: Urine 400 100 200 Other: Voiding Method Toilet Toilet Urinal Urinal Urinal # Voids 1 1 # Bowel Movements 1 - Exam GENERAL DESCRIPTION: An elderly male lying in bed in no distress RESPIRATORY SYSTEM: Unlabored breathing , decreased breath sounds at bases HEART: S1 S2 regular rate and rhythm , ABDOMEN: Soft , no tenderness EXTREMITIES: No edema feet - Labs CBC & Chem 7: 12/07/22 06:57 12/07/22 06:57 Labs: Abnormal Lab Results - Last 24 Hours (Table) 12/07/22 12/07/22 12/07/22 Range/Units 06:57 06:57 07:18 RBC 3.57 L (4.30-5.90) m/uL Hgb 10.6 L (13.0-17.5) gm/dL Hct 33.3 L (39.0-53.0) % Sodium 136 L (137-145) mmol/L Carbon Dioxide 31 H (22-30) mmol/L BUN 23 H (9-20) mg/dL Glucose 117 H (74-99) mg/dL POC Glucose (mg/dL) 136 H (70-110) mg/dL Calcium 7.8 L (8.4-10.2) mg/dL Total Protein 4.9 L (6.3-8.2) g/dL Albumin 2.4 L (3.5-5.0) g/dL Assessment and Plan (1) Pneumonia Current Visit: Yes Status: Acute Code(s): J18.9 - PNEUMONIA, UNSPECIFIED ORGANISM SNOMED Code(s): 823656953 Plan: 1patient presented hospital with abdominal pain did have evidence of effusion no acute abdominal date abdominal pelvis except evidence of bilateral effusion and the patient did have slightly respiratory compromise mild cough concern for possible pneumonia not entirely excluded with the predominant abdominal symptoms and evidence of elevated lactic acid we will need to cover for the enteric gram- negative both aerobes and anaerobes 2-patient with borderline kidney function high risk of nephrotoxicity from vancomycin 3-patient did have elevated CRP however procalcitonin Was mildly elevated at 0.20 4the patient antibiotic has been discontinued, patient has been complaining of diarrhea more likely antibiotic associated , stool for C. diff is negative, patient that he has improved continue with the Questran 5-patient is complaining of more shortness of breath today. We will repeat his chest x-ray and inflammatory markers with a.m. lab Time with Patient: Less than 30
[2022-12-07] MEDS: ATORVASTATIN 80 MG TAB PO SCH (23:16)
[2022-12-08] MEDS: carvediloL 3.125 MG TAB PO SCH (06:48)
--- NOTE | 2022-12-08 07:18 | XR ---
EXAMINATION TYPE: XR chest 2V DATE OF EXAM: 12/08/2022 7:00 AM COMPARISON: Chest radiographs from 12/04/2022 TECHNIQUE: XR chest 2V Frontal and lateral views of the chest. CLINICAL INDICATION:Male, 77 years old with history of Pneumonia; FINDINGS: Lungs/Pleura: There is no evidence of pleural effusion, focal consolidation, or pneumothorax. Pulmonary vascularity: Unremarkable. Heart/mediastinum: Cardiomediastinal silhouette is unremarkable. Three lead cardiac conduction device overlying the left hemithorax with lead tips projecting over the right ventricle, right atrium and c oronary sinus. Musculoskeletal: No acute osseous pathology. There is fixation hardware in the lower cervical spine. Severe degeneration changes of the shoulder joint and joint articulation. IMPRESSION: Cardiomegaly with pulmonary vascular congestion and Bilateral pleural effusions left greater than rig ht. Correlate with serum BNP impose infection not entirely excluded. Findings are worse compared to
[2022-12-08] MEDS: ASCORBIC ACID 500 MG TAB PO SCH (07:34)
[2022-12-08] MEDS: ASPIRIN 81 MG PO SCH (07:34)
[2022-12-08] MEDS: CHOLECALCIFEROL 25 MCG (1000 IU) TABLET PO SCH (07:34)
[2022-12-08] MEDS: PANTOPRAZOLE 40 MG/10 ML VIAL IV SCH (07:35)
[2022-12-08] MEDS: CLOPIDOGREL 75 MG TAB PO SCH (07:35)
[2022-12-08] MEDS: FUROSEMIDE 10 MG/ML 4 ML VIAL IV SCH (07:35)
[2022-12-08] MEDS: DOCUSATE 100 MG CAP PO SCH (07:35)
[2022-12-08] MEDS: HEPARIN SODIUM,PORCINE/PF 5,000 UNIT/0.5 ML SYRINGE SQ SCH ×2 (07:36→20:18)
[2022-12-08 09:31] LABS: Basophils % (A) 0 %; Eosinophils # (A) 0.4 k/uL (0-0.7); Eosinophils % (A) 4 %; HCT 38.7 % (39.0-53.0); HGB 12.1 gm/dL (13.0-17.5); Hypochromasia Marked; Lymphocytes % (A) 10 %; MCH 29.1 pg (25.0-35.0); MCHC 31.4 g/dL (31.0-37.0); MCV 92.8 fL (80.0-100.0); Mean Platelet Volume 8.6; Monocytes # (A) 0.8 k/uL (0-1.0); Monocytes % (A) 8 %; Neutrophils # (A) 8.1 k/uL (1.3-7.7); Neutrophils % (A) 76 %; Platelet Count 290 k/uL (150-450); RBC 4.17 m/uL (4.30-5.90); RDW 15.2 % (11.5-15.5); WBC 10.7 k/uL (3.8-10.6)
[2022-12-08 09:45] LABS: ALT 27 U/L (4-49); AST 28 U/L (17-59); African American GFR (CKD) 71 (>60 ml/min/1.73 sqM); Albumin 2.9 g/dL (3.5-5.0); Alkaline Phosphatase 102 U/L (38-126); Anion Gap 4 mmol/L; Blood Urea Nitrogen 20 mg/dL (9-20); Calcium 8.6 mg/dL (8.4-10.2); Carbon Dioxide 32 mmol/L (22-30); Chloride 100 mmol/L (98-107); Glucose 97 mg/dL (74-99); Non-African American GFR(CKD) 61 (>60 ml/min/1.73 sqM); Potassium 3.9 mmol/L (3.5-5.1); Sodium 136 mmol/L (137-145); Total Bilirubin 0.9 mg/dL (0.2-1.3); Total Protein 5.9 g/dL (6.3-8.2)
[2022-12-08] MEDS: CHOLESTYRAMINE (WITH SUGAR) 4 GM PACKET PO SCH ×2 (09:45→17:09)
[2022-12-08] MEDS: oxyCODONE-APAP 10-325MG 1 EACH TAB PO PRN ×3 (09:49→20:18)
[2022-12-08 10:15] LABS: C Reactive Protein 5.9 mg/dL (<1.0)
[2022-12-08 10:49] LABS: Total Protein 5.9 g/dL (6.3-8.2)
--- NOTE | 2022-12-08 11:04 | XR ---
EXAMINATION TYPE: XR chest 1V portable DATE OF EXAM: 12/08/2022 10:40 AM COMPARISON: Chest radiographs from 12/08/2022 TECHNIQUE: XR chest 1V portable Frontal view of the chest. CLINICAL INDICATION:Male, 77 years old with history of post lt thoracentesis; FINDINGS: Lungs/Pleura: Decrease in left pleural effusion. There remains right pleural effusion with associated atelectasis. There is small left pneumothorax. No right pneumothorax. Pulmonary vascularity: Unremarkable. Heart/mediastinum: Cardiomediastinal silhouette is enlarged and stable. Cardiac conduction device wit h leads in stable position. Musculoskeletal: No acute osseous pathology. There is fixation hardware in the lower cervical spine. Midline sternotomy wires are noted. IMPRESSION: Status post left thoracentesis with decrease in left pleural effusion. There is a small left pneumoth orax.
[2022-12-08] MEDS: MORPHINE SULFATE 2 MG/ML SYRINGE IVP PRN ×2 (11:42→20:18)
--- NOTE | 2022-12-08 11:54 | P.PN ---
Subjective Progress Note Date: 12/08/22 Principal diagnosis: Pneumonia Patient is a 77-year-old male with a past medical history significant for hypertension hyperlipidemia coronary artery disease COPD sleep apnea presented to hospital with abdominal and back pain which is bilateral effusion possible atelectasis/pneumonia and cystitis On today's evaluation that is 12/08/22 patient continues to be afebrile, the patient is breathing comfortably on 2 L nasal cannula oxygen., The patient having any chest pain however still complaining of shortness of breath, the patient did have occasional cough no nausea no vomiting no abdominal pain and diarrhea has improved Objective - Vital Signs Vital signs: Vital Signs Temp 97.9 F 12/08/22 07:27 Pulse 75 12/08/22 10:17 Resp 20 12/08/22 10:17 BP 137/73 12/08/22 10:17 Pulse Ox 99 12/08/22 10:17 FiO2 Intake & Output 12/07/22 12/08/22 12/08/22 18:59 06:59 18:59 Intake Total 180 540 Output Total 1724 500 650 Balance -1544 -500 -110 Weight 66.5 kg 62 kg Intake: Oral 180 540 Output: Urine 1724 500 650 Stool 0 Other: Voiding Method Urinal Urinal Incontinent Diaper Diaper External Catheter Incontinent Incontinent - Exam GENERAL DESCRIPTION: An elderly male lying in bed in no distress RESPIRATORY SYSTEM: Unlabored breathing , decreased breath sounds at bases HEART: S1 S2 regular rate and rhythm , ABDOMEN: Soft , no tenderness EXTREMITIES: No edema feet - Labs CBC & Chem 7: 12/08/22 09:07 12/08/22 09:07 Labs: Abnormal Lab Results - Last 24 Hours (Table) 12/08/22 12/08/22 12/08/22 Range/Units 09:07 09:07 09:07 WBC 10.7 H (3.8-10.6) k/uL RBC 4.17 L (4.30-5.90) m/uL Hgb 12.1 L (13.0-17.5) gm/dL Hct 38.7 L (39.0-53.0) % Neutrophils # 8.1 H (1.3-7.7) k/uL Sodium 136 L (137-145) mmol/L Carbon Dioxide 32 H (22-30) mmol/L C-Reactive Protein 5.9 H (<1.0) mg/dL Total Protein 5.9 L 5.9 L (6.3-8.2) g/dL Albumin 2.9 L (3.5-5.0) g/dL Microbiology - Last 24 Hours (Table) 12/02/22 11:50 Blood Culture - Final Blood Assessment and Plan (1) Pneumonia Current Visit: Yes Status: Acute Code(s): J18.9 - PNEUMONIA, UNSPECIFIED ORGANISM SNOMED Code(s): 439121194 Plan: 1patient presented hospital with abdominal pain did have evidence of effusion no acute abdominal date abdominal pelvis except evidence of bilateral effusion and the patient did have slightly respiratory compromise mild cough concern for possible pneumonia not entirely excluded with the predominant abdominal symptoms and evidence of elevated lactic acid we will need to cover for the enteric gram- negative both aerobes and anaerobes 2-patient with borderline kidney function high risk of nephrotoxicity from vancomycin 3-patient did have elevated CRP however procalcitonin Was mildly elevated at 0.20 4the patient antibiotic has been discontinued, patient has been complaining of diarrhea more likely antibiotic associated , stool for C. diff is negative, p atient diarrhea has improved continue with the Questran 5-patient is complaining of more shortness of breath, chest x-ray did shows evidence of likely effusion, CRP mildly elevated procalcitonin is pending Time with Patient: Less than 30
--- NOTE | 2022-12-08 12:15 | OP ---
OPERATIVE REPORT DATE OF SERVICE : PROCEDURE PERFORMED: Left-sided thoracentesis. PREOPERATIVE DIAGNOSIS: Large left pleural effusion. POSTOPERATIVE DIAGNOSIS: Large left pleural effusion. ANESTHESIA USED: 2 mL of 1% lidocaine. DESCRIPTION OF PROCEDURE: The patient was placed in the sitting upright position, the area below the left scapula, which was earlier marked by ultrasound guidance, was prepared in a sterile fashion. Drapes were applied. The area was locally anesthetized with lidocaine. Then, a small 26-gauge needle was inserted at that site, advanced into the pleural space, fluid was localized, then a small tiny incision was made, and a standard thoracentesis catheter was used. The needle was advanced into the pleural space. The fluid was obtained. As the needle entered the pleural space, the catheter was advanced over the needle into the pleural space. Freely flowing fluid was removed, roughly 1000 mL of angeles colored fluid was removed from the left pleural space. Procedure was well tolerated. Postoperatively, chest x-ray showed small tiny left apical pneumothorax, I believe the pneumothorax is mostly failure for the lung to expand fully, strongly doubt actual pneumothorax. Nonetheless, a followup chest x-ray will be done in the next hour. No immediate complications noted, and no symptoms after the thoracentesis. MMODL / IJN: [id number] /
--- NOTE | 2022-12-08 13:22 | P.PN ---
Subjective Progress Note Date: 12/08/22 Principal diagnosis: Acute on chronic hypoxic respiratory failure, multifactorial I am seeing this patient in new consultation today 12/03/2022 in the intensive care unit after the patient was A-teamed, and transferred to the intensive care unit yesterday for worsening abdominal pain and shortness of breath. The patient is a 77-year-old male with past medical history significant for COPD, intermittent oxygen use at home, severe ischemic cardiomyopathy with ejection fraction of 20%, prior ventricular tachycardia, AICD/pacemaker implant, coronary artery disease status post CABG, prior myocardial infarction and cardiac stents,hypertension, hyperlipidemia, kidney stones, prostate disorder,and is an ex-smoker. Patient presented in the emergency room on November 30 complaining of generalized upper abdominal pain. No reports of nausea, vomiting, or constipation. Admits intermittent diarrhea. He is also reporting intermittent shortness of breath over the last month. This has been associated with fever, chills, and a minimally productive cough. CT of abdomen and pelvis without contrast on arrival did not show any acute intraabdominal process. It did show some more chronic changes including an aneurysmal ascending or aorta measuring 4.6 cm, bladder wall thickening or distention, minimal free fluid in the posterior pelvis/presacral edema, a surgically absent gallbladder, and billiary system dilation. It also showed moderate left and small right pleural effusions.the patient was admitted to the floor, and an A-team was called yesterday morning for concerns of worsening abdominal pain and shortness of breath. The patient also had a transient episode of bradycardia and hyperkalemia which was treated with K-cocktail and improved. The patient does have a pacemaker. Lactic acid level was also elevated at 4. Blood pressure was stable, and did not require vasopressors. Patient was transferred to the intensive care unit. A follow-up CT of the chest/abdomen/pelvis with contrast, again showed no acute intra-abdominal process. It did show evidence of heart failure with cardiomegaly, trace bilateral pleural effusions, and pulmonary vascular congestion. There are some chronic emphysematous changes. There is redemonstration of the prior findings. Patient is currently sitting up in bed, on 3 L nasal cannula, in no acute distress. Chest x-ray from yesterday morning shows a possible developing right lower lobe infiltrate. There is also a suspected small left pleural effusion. Patient is empirically covered on Zosyn. He is afebrile. Procalcitonin level was mildly elevated at 0.2. He has multiple general complaints, and is technically a poor historian. He is telling me that he has bilateral flank pain and abdominal pain. Urinalysis was not concerning for UTI. Most recent CBC from yesterday morning shows a WBC count of 11, hemoglobin 12, hematocrit 39, platelets 247. BMP from yesterday shows sodium 134, potassium 4.9, chloride 107, serum bicarb 15, BUN 40, creatinine 1.85, glucose 127. Lactic acid level is down to 2.4. He has been given a total of 2 L normal saline bolus. The patient does have a component of metabolic acidosis, and currently has sodium bicarb 3 A in D5W infusing at 50 ML's per hour. LFTs are mildly elevated. Troponins are elevated at 0.15, 0.15, 0.11 respectively. ECG on arrival shows no acute ischemic changes. Patient will be monitored in the intensive care unit. On today's evaluation of 12/04/2022, the patient is sitting up on a chair. His abdominal pain is subsided significantly. He is hemodynamically stable. He was resuscitated IV fluids and the patient was given bicarb infusion the bicarb deficit was corrected and serum bicarbs of 24. Lactic acid level is also improved. The patient is producing urine output in the order of 30 mL an hour. Creatinine is stable at 1.5. Pro-calcitonin level was 0.2. The WBC count is at 4.8 with a hemoglobin 10.2 and a platelet count of 123. The patient has no sp ecific complaints. Tolerating his diet. He remains on IV Zosyn. He is also receiving Lasix 40 mg IV every 24 hours. Chest x-ray shows a left-sided pleural effusion. This was drained in the past and this was consistent with CHF. No chest pain. He is currently on 4 L of O2 nasal cannula., Comfortable. No specific complaint otherwise for now. On 12/05/2022, the patient is stable. No new complaints. He is having some diarrhea and I suggested to start IV Zosyn and check the patient for stool C. diff infection. Respiratory status is stable. Remains on Lasix 40 mg IV every 24 hours. BUN is at 32 with a creatinine of 1.39 and a sodium levels of 133 with a potassium level of 3.7. He remains on oxygen and is currently on 2 L with a pulse ox of 93%. No worsening in respiratory status. He is afebrile and hemodynamically stable On today's evaluation of 12/06/2022, the patient continues to have some pain in the abdomen and flank area. No new complaints. No nausea or vomiting. No chest pain or shortness of breath. He is having diarrhea. I checked stool for C. diff and that came back negative. Noted the patient had 2 episodes of diarrhea yesterday and another episode today. Possibility of ischemic colitis needs to be considered in this patient especially that the patient has severe atherosclerosis of the aorta and impaired LV function. The vesicles of 10, hemoglobin 11.6 and a platelet count is 195. BUN is at 28 with a creatinine of 1.34 and a sodium level is at 134. Stool for C. diff has been negative. Reevaluated today on 12/07/2022, patient is marginal at best, continues to have shortness of breath with any activity, his last chest x-ray showed significant left-sided pleural effusion this was confirmed by ultrasound that I ordered and reviewed on the patient today. Hence I would likely recommend left-sided thoracentesis on this patient in the next 24 hours. In the meantime the patient being evaluated for his abdominal pain and diarrhea. Patient does have severe LV dysfunction, and he has what seems to be a picture of ischemic cardiomyopathy and acute on chronic kidney disease Reevaluated today on 12/08/2022, patient is basically about the same, continues to have some shortness of breath, no cough, no wheezing, no fever, no chills, reviewed the ultrasound of the chest, and went ahead today and recommended left- sided thoracentesis, this was done and I drained just over 1000 mL of angeles- colored fluid, this was sent for different diagnostic studies, procedure was well-tolerated, follow-up chest x-ray showed tiny left apical pneumothorax. Follow-up chest x-ray was ordered to be done in few hours WBC count is 10.7 hemoglobin is 12.1) normal renal profile is improving. Creatinine 1.15 patient is having less GI symptoms today compared to the last 2 days remains on bronchodilators remains on Lasix 40 mg IV push daily. Objective - Vital Signs Vital signs: Vital Signs Temp 97.9 F 12/08/22 07:27 Pulse 77 12/08/22 13:06 Resp 22 12/08/22 13:06 BP 120/74 12/08/22 11:09 Pulse Ox 94 L 12/08/22 11:09 FiO2 Intake & Output 12/07/22 12/08/22 12/08/22 18:59 06:59 18:59 Intake Total 180 540 Output Total 1724 500 650 Balance -1544 -500 -110 Weight 66.5 kg 62 kg Intake: Oral 180 540 Output: Urine 1724 500 650 Stool 0 Other: Voiding Method Urinal Urinal Incontinent Diaper Diaper External Catheter Incontinent Incontinent - Exam GENERAL EXAM: Alert, 77-year-old male, looks frail and chronically ill, not in respiratory distress. HEAD: Normocephalic and atraumatic EYES: Normal reaction of pupils, equal size. NOSE: Clear with pink turbinates. THROAT: No erythema or exudates. NECK: No masses, no JVD. CHEST: Diminished breath sounds and dullness at the left base. Symmetrical chest expansion CVS: S1 and S2 normal with no audible murmur, regular rhythm. No extra heart sounds ABDOMEN: No hepatosplenomegaly, active bowel sounds, no guarding or rigidity. SKIN: No rashes. CENTRAL NERVOUS SYSTEM: Looks generally weak otherwise no focal deficits EXTREMITIES: No clubbing edema or cyanosis. - Labs CBC & Chem 7: 12/08/22 09:07 12/08/22 09:07 Labs: Abnormal Lab Results - Last 24 Hours (Table) 12/08/22 12/08/22 12/08/22 Range/Units 09:07 09:07 09:07 WBC 10.7 H (3.8-10.6) k/uL RBC 4.17 L (4.30-5.90) m/uL Hgb 12.1 L (13.0-17.5) gm/dL Hct 38.7 L (39.0-53.0) % Neutrophils # 8.1 H (1.3-7.7) k/uL Sodium 136 L (137-145) mmol/L Carbon Dioxide 32 H (22-30) mmol/L C-Reactive Protein 5.9 H (<1.0) mg/dL Total Protein 5.9 L 5.9 L (6.3-8.2) g/dL Albumin 2.9 L (3.5-5.0) g/dL Microbiology - Last 24 Hours (Table) 12/02/22 11:50 Blood Culture - Final Blood Assessment and Plan Assessment: Impression: Acute on chronic hypoxic respiratory failure secondary to acute community- acquired pneumonia and acute systolic congestive heart failure with left-sided pleural effusion Nonspecific abdominal pain and discomfort, resolved Chronic obstructive pulmonary disease Ischemic cardiomyopathy and LV dysfunction and ejection fraction less than 20% Acute on chronic kidney disease Coronary arteriosclerosis and multiple stents placement Ascending aortic aneurysm 4.6 cm Obstructive sleep apnea syndrome Ex-smoker Status post left thoracentesis, over 1000 mL drained from the left pleural space sent for different diagnostic studies. Left apical pneumothorax, could be iatrogenic or could be failure for the left lung to fully expand after large amount of fluid was drained hence follow-up chest x-ray is pending Recommendation: Continue present supportive care measures Continue diuretics Continue to monitor electrolytes specially potassium Consider discharge planning in the next 24 hours if cleared by other consultants Follow-up chest x-ray was ordered for small tiny left apical pneumothorax noted on chest x-ray post thoracentesis We will continue to follow. Time with Patient: Less than 30
--- NOTE | 2022-12-08 13:49 | XR ---
EXAMINATION TYPE: XR chest 1V portable DATE OF EXAM: 12/08/2022 1:38 PM COMPARISON: Chest radiographs from same day TECHNIQUE: XR chest 1V portable Frontal view of the chest. CLINICAL INDICATION:Male, 77 years old with history of f/u ptx; FINDINGS: Lungs/Pleura: Stable left pleural effusion. There remains right pleural effusion with associated atel ectasis. There is small left pneumothorax which is unchanged from prior. No right pneumothorax. Pulmonary vascularity: Unremarkable. Heart/mediastinum: Cardiomediastinal silhouette is enlarged and stable. Cardiac conduction device wit h leads in stable position. Musculoskeletal: No acute osseous pathology. There is fixation hardware in the lower cervical spine. Midline sternotomy wires are noted. IMPRESSION: Unchanged small left pneumothorax.
--- NOTE | 2022-12-08 14:26 | P.PN ---
Subjective Progress Note Date: 12/08/22 The patient is a 77-year-old male with a known history of severe ischemic cardiac myopathy, status post ICD implantation, status post CABG and PCI, he underwent PCI of the left main and circumflex in August [address] Chisholm with mechanical support. He has a patent WHITE to the LAD and patent radial to the right PDA was occluded SVG to the PLV who presented to the hospital because of abdominal pain and nausea and vomiting. Patient stated that he has been having abdominal pain for last couple of days, pain is located in the upper part of the abdomen and is going to his back. Denies any chest pain. Does complain of worsening shortness of breath. Because of the abdominal pain patient came to the ER Initial lab work in the ER showed WBC 6.6, hemoglobin 11.7, platelet count 258, sodium 133, potassium 5.1, BUN 27, creatinine 1.58 CT Abdomen pelvis showed moderate left and small right pleural effusions, left lower lobe atelectasis, partially visualized aneurysmal aorta of 4.6 cm Patient was admitted to medicine service for further evaluation and treatment 12/02. Patient seen and examined. Patient had rapid response called because of feeling of being cold and clammy, patient also having pain in his belly. Complaining of shortness of breath at rest. When the aide team arrived, patient blood pressure was stable but heart rate dipped into 30s. EKGs was ordered, stat CBC CMP, chest x-ray ordered. Patient was transferred to ICU 12/03. Patient seen and examined. Blood work done this morning showed white count 11.2, hemoglobin 10.5. Sodium 134, potassium 4.9, chloride 105, BUN 44, creatinine 1.63 Patient states he feels much better. States flank pain is also improved. States she has poor appetite, discussed with him regarding the need for him to eat 12/04. Patient seen and examined. Laying comfortably in the chair. States he feels better. Currently on 4 L of oxygen. Continues to complain of poor appetite 12/05. Patient seen and examined. Patient is transferred out of ICU. Sodium this morning is 133, potassium 3.7, BUN 32, creatinine 1.39. Currently on 2 L of oxygen. Complaining of abdominal pain. Tolerating diet. 12/06. Patient seen and examined. WBC 10.5, hemoglobin 11.6, sodium 134, potassium 2.8, BUN 28, creatinine 1.34. Potassium placement ordered. Complaining of diarrhea, had up to 2 loose stools this morning, same number of stools yesterday 12/07 seen and examined. Still complaining of flank pain. Gets short of breath on minimal exertion. Pulmonology recommended left-sided thoracentesis 12/08. Patient seen and examined. Patient underwent thoracentesis this morning with removal of 1000 ML of fluid. Patient telemetry is showing a lot of PVCs. Denies any lightheadedness or dizziness. Denies any shortness of breath. States he feels better after thoracentesis REVIEW OF SYSTEMS: CONSTITUTIONAL: Denies lethargy CARDIOVASCULAR: No chest pain, PULMONARY: States breathing has improved GASTROINTESTINAL: Flank pain NEUROLOGICAL: No headaches, no weakness, PHYSICAL EXAMINATION: GENERAL: The patient is alert and oriented x3, not in any acute distress HEENT: Pupils are round and equally reacting to light. EOMI. No scleral icterus. No conjunctival pallor. Normocephalic, atraumatic. No pharyngeal erythema. No thyromegaly. CARDIOVASCULAR: S1 and S2 present. No murmurs, rubs, or gallops. PULMONARY: Coarse breath sounds bilaterally ABDOMEN: Soft, nontender, nondistended, normoactive bowel sounds. No palpable organomegaly. MUSCULOSKELETAL: No joint swelling or deformity. EXTREMITIES: No cyanosis, clubbing, or pedal edema. Extremities are cold to touch NEUROLOGICAL: Gross neurological examination did not reveal any focal deficits. SKIN: No rashes. Assessment and plan Acute on chronic hypoxic respiratory failure Bradycardia Bacterial Pneumonia Hyperkalemia Abdominal pain Nausea and vomiting Elevated troponin History of ischemic cardiomyopathy with most recent EF of 20% History of CABG with stenting Permanent pacemaker AICD in 2019 History of fibromyalgia Hyperlipidemia COPD, not an exacerbation hypertension Monitor vital signs Monitor CBC Monitor CMP Continue telemetry monitoring Continue Questran for diarrhea Continue pain management with Percocet 10 mg every 4 hourly when necessary and IV morphine 2 mg every 8 hourly when necessary Continue IV Lasix 40 mg daily Coreg dose increased to 6.25 mg twice daily Follow-up on ID recommendations Status post left-sided thoracentesis, follow-up on pulmonary recommendations Follow-up on cardiology recommendations, they signed off, outpatient follow up with cardiology Objective - Vital Signs Vital signs: Vital Signs Temp 97.9 F 12/08/22 07:27 Pulse 77 12/08/22 13:06 Resp 22 12/08/22 13:06 BP 120/74 12/08/22 11:09 Pulse Ox 94 L 12/08/22 11:09 FiO2 Intake & Output 12/07/22 12/08/22 12/08/22 18:59 06:59 18:59 Intake Total 180 540 Output Total 1724 500 650 Balance -1544 -500 -110 Weight 66.5 kg 62 kg Intake: Oral 180 540 Output: Urine 1724 500 650 Stool 0 Other: Voiding Method Urinal Urinal Incontinent Diaper Diaper External Catheter Incontinent Incontinent - Labs CBC & Chem 7: 12/08/22 09:07 12/08/22 09:07 Labs: Abnormal Lab Results - Last 24 Hours (Table) 12/08/22 12/08/22 12/08/22 Range/Units 09:07 09:07 09:07 WBC 10.7 H (3.8-10.6) k/uL RBC 4.17 L (4.30-5.90) m/uL Hgb 12.1 L (13.0-17.5) gm/dL Hct 38.7 L (39.0-53.0) % Neutrophils # 8.1 H (1.3-7.7) k/uL Sodium 136 L (137-145) mmol/L Carbon Dioxide 32 H (22-30) mmol/L C-Reactive Protein 5.9 H (<1.0) mg/dL Total Protein 5.9 L 5.9 L (6.3-8.2) g/dL Albumin 2.9 L (3.5-5.0) g/dL Microbiology - Last 24 Hours (Table) 12/02/22 11:50 Blood Culture - Final Blood
[2022-12-08] MEDS: carvediloL 6.25 MG TAB PO SCH (17:09)
[2022-12-08 20:12] LABS: Glucose, BF Source Thoracentesis Fluid; Glucose, Body Fluid 120 mg/dL; LDH, Body Fluid Source Thoracentesis Fluid; T. Protein, Body Fluid Source Thoracentesis Fluid; Total Protein, Body Fluid 1960 mg/dL
[2022-12-08] MEDS: ATORVASTATIN 80 MG TAB PO SCH (20:18)
[2022-12-09 00:30] VITALS: RESP 18
[2022-12-09] MEDS: oxyCODONE-APAP 10-325MG 1 EACH TAB PO PRN ×2 (01:22→06:28)
[2022-12-09] MEDS: MORPHINE SULFATE 2 MG/ML SYRINGE IVP PRN ×2 (04:21→13:31)
[2022-12-09] MEDS: carvediloL 6.25 MG TAB PO SCH ×2 (06:23→17:12)
[2022-12-09] MEDS: DOCUSATE 100 MG CAP PO SCH (09:17)
[2022-12-09] MEDS: ASPIRIN 81 MG PO SCH (09:17)
[2022-12-09] MEDS: CLOPIDOGREL 75 MG TAB PO SCH (09:18)
[2022-12-09] MEDS: PANTOPRAZOLE 40 MG/10 ML VIAL IV SCH (09:18)
[2022-12-09] MEDS: CHOLECALCIFEROL 25 MCG (1000 IU) TABLET PO SCH (09:18)
[2022-12-09] MEDS: CHOLESTYRAMINE (WITH SUGAR) 4 GM PACKET PO SCH ×2 (09:19→17:13)
[2022-12-09] MEDS: FUROSEMIDE 10 MG/ML 4 ML VIAL IV SCH (09:19)
[2022-12-09] MEDS: HEPARIN SODIUM,PORCINE/PF 5,000 UNIT/0.5 ML SYRINGE SQ SCH (09:19)
[2022-12-09] MEDS: ASCORBIC ACID 500 MG TAB PO SCH (09:23)
[2022-12-09 10:39] LABS: Basophils % (A) 0 %; Eosinophils # (A) 0.4 k/uL (0-0.7); Eosinophils % (A) 3 %; HGB 10.9 gm/dL (13.0-17.5); Hypochromasia Marked; Lymphocytes # (A) 1.1 k/uL (1.0-4.8); Lymphocytes % (A) 10 %; MCV 93.5 fL (80.0-100.0); Mean Platelet Volume 8.7; Monocytes # (A) 1.2 k/uL (0-1.0); Monocytes % (A) 10 %; Neutrophils # (A) 8.8 k/uL (1.3-7.7); Neutrophils % (A) 74 %; Platelet Count 261 k/uL (150-450); RBC 3.74 m/uL (4.30-5.90); RDW 15.1 % (11.5-15.5); WBC 11.9 k/uL (3.8-10.6)
[2022-12-09 11:08] LABS: African American GFR (CKD) 80 (>60 ml/min/1.73 sqM); Anion Gap 8 mmol/L; Blood Urea Nitrogen 20 mg/dL (9-20); Calcium 8.2 mg/dL (8.4-10.2); Carbon Dioxide 25 mmol/L (22-30); Chloride 99 mmol/L (98-107); Glucose 118 mg/dL (74-99); Non-African American GFR(CKD) 70 (>60 ml/min/1.73 sqM); Potassium 4.3 mmol/L (3.5-5.1); Sodium 132 mmol/L (137-145)
--- NOTE | 2022-12-09 11:45 | P.PN ---
Subjective Progress Note Date: 12/09/22 Principal diagnosis: Acute on chronic hypoxic respiratory failure, multifactorial I am seeing this patient in new consultation today 12/03/2022 in the intensive care unit after the patient was A-teamed, and transferred to the intensive care unit yesterday for worsening abdominal pain and shortness of breath. The patient is a 77-year-old male with past medical history significant for COPD, intermittent oxygen use at home, severe ischemic cardiomyopathy with ejection fraction of 20%, prior ventricular tachycardia, AICD/pacemaker implant, coronary artery disease status post CABG, prior myocardial infarction and cardiac stents,hypertension, hyperlipidemia, kidney stones, prostate disorder,and is an ex-smoker. Patient presented in the emergency room on November 30 complaining of generalized upper abdominal pain. No reports of nausea, vomiting, or constipation. Admits intermittent diarrhea. He is also reporting intermittent shortness of breath over the last month. This has been associated with fever, chills, and a minimally productive cough. CT of abdomen and pelvis without contrast on arrival did not show any acute intraabdominal process. It did show some more chronic changes including an aneurysmal ascending or aorta measuring 4.6 cm, bladder wall thickening or distention, minimal free fluid in the posterior pelvis/presacral edema, a surgically absent gallbladder, and billiary system dilation. It also showed moderate left and small right pleural effusions.the patient was admitted to the floor, and an A-team was called yesterday morning for concerns of worsening abdominal pain and shortness of breath. The patient also had a transient episode of bradycardia and hyperkalemia which was treated with K-cocktail and improved. The patient does have a pacemaker. Lactic acid level was also elevated at 4. Blood pressure was stable, and did not require vasopressors. Patient was transferred to the intensive care unit. A follow-up CT of the chest/abdomen/pelvis with contrast, again showed no acute intra-abdominal process. It did show evidence of heart failure with cardiomegaly, trace bilateral pleural effusions, and pulmonary vascular congestion. There are some chronic emphysematous changes. There is redemonstration of the prior findings. Patient is currently sitting up in bed, on 3 L nasal cannula, in no acute distress. Chest x-ray from yesterday morning shows a possible developing right lower lobe infiltrate. There is also a suspected small left pleural effusion. Patient is empirically covered on Zosyn. He is afebrile. Procalcitonin level was mildly elevated at 0.2. He has multiple general complaints, and is technically a poor historian. He is telling me that he has bilateral flank pain and abdominal pain. Urinalysis was not concerning for UTI. Most recent CBC from yesterday morning shows a WBC count of 11, hemoglobin 12, hematocrit 39, platelets 247. BMP from yesterday shows sodium 134, potassium 4.9, chloride 107, serum bicarb 15, BUN 40, creatinine 1.85, glucose 127. Lactic acid level is down to 2.4. He has been given a total of 2 L normal saline bolus. The patient does have a component of metabolic acidosis, and currently has sodium bicarb 3 A in D5W infusing at 50 ML's per hour. LFTs are mildly elevated. Troponins are elevated at 0.15, 0.15, 0.11 respectively. ECG on arrival shows no acute ischemic changes. Patient will be monitored in the intensive care unit. On today's evaluation of 12/04/2022, the patient is sitting up on a chair. His abdominal pain is subsided significantly. He is hemodynamically stable. He was resuscitated IV fluids and the patient was given bicarb infusion the bicarb deficit was corrected and serum bicarbs of 24. Lactic acid level is also improved. The patient is producing urine output in the order of 30 mL an hour. Creatinine is stable at 1.5. Pro-calcitonin level was 0.2. The WBC count is at 4.8 with a hemoglobin 10.2 and a platelet count of 123. The patient has no sp ecific complaints. Tolerating his diet. He remains on IV Zosyn. He is also receiving Lasix 40 mg IV every 24 hours. Chest x-ray shows a left-sided pleural effusion. This was drained in the past and this was consistent with CHF. No chest pain. He is currently on 4 L of O2 nasal cannula., Comfortable. No specific complaint otherwise for now. On 12/05/2022, the patient is stable. No new complaints. He is having some diarrhea and I suggested to start IV Zosyn and check the patient for stool C. diff infection. Respiratory status is stable. Remains on Lasix 40 mg IV every 24 hours. BUN is at 32 with a creatinine of 1.39 and a sodium levels of 133 with a potassium level of 3.7. He remains on oxygen and is currently on 2 L with a pulse ox of 93%. No worsening in respiratory status. He is afebrile and hemodynamically stable On today's evaluation of 12/06/2022, the patient continues to have some pain in the abdomen and flank area. No new complaints. No nausea or vomiting. No chest pain or shortness of breath. He is having diarrhea. I checked stool for C. diff and that came back negative. Noted the patient had 2 episodes of diarrhea yesterday and another episode today. Possibility of ischemic colitis needs to be considered in this patient especially that the patient has severe atherosclerosis of the aorta and impaired LV function. The vesicles of 10, hemoglobin 11.6 and a platelet count is 195. BUN is at 28 with a creatinine of 1.34 and a sodium level is at 134. Stool for C. diff has been negative. Reevaluated today on 12/07/2022, patient is marginal at best, continues to have shortness of breath with any activity, his last chest x-ray showed significant left-sided pleural effusion this was confirmed by ultrasound that I ordered and reviewed on the patient today. Hence I would likely recommend left-sided thoracentesis on this patient in the next 24 hours. In the meantime the patient being evaluated for his abdominal pain and diarrhea. Patient does have severe LV dysfunction, and he has what seems to be a picture of ischemic cardiomyopathy and acute on chronic kidney disease Reevaluated today on 12/08/2022, patient is basically about the same, continues to have some shortness of breath, no cough, no wheezing, no fever, no chills, reviewed the ultrasound of the chest, and went ahead today and recommended left- sided thoracentesis, this was done and I drained just over 1000 mL of angeles- colored fluid, this was sent for different diagnostic studies, procedure was well-tolerated, follow-up chest x-ray showed tiny left apical pneumothorax. Follow-up chest x-ray was ordered to be done in few hours WBC count is 10.7 hemoglobin is 12.1) normal renal profile is improving. Creatinine 1.15 patient is having less GI symptoms today compared to the last 2 days remains on bronchodilators remains on Lasix 40 mg IV push daily. Reevaluated today on 12/01/2022, patient is doing much better today, breathing a lot easier, the pleural effusion I drained yesterday came out to be transudative in nature hence it is cardiogenic, further studies are pending but cytology will not be available until next week. In the meantime the patient could be dis cussed considered for discharge home on to a rehab if cleared by other consultants including cardiology. I would recommend that he remains on bronchodilators and he remains on oral Lasix. Labs from today were reviewed. Chest x-ray from yesterday was reviewed. Objective - Vital Signs Vital signs: Vital Signs Temp 96.4 F L 12/09/22 08:00 Pulse 67 12/09/22 08:00 Resp 18 12/09/22 08:00 BP 131/60 12/09/22 08:00 Pulse Ox 96 12/09/22 09:43 FiO2 Intake & Output 12/08/22 12/09/22 12/09/22 18:59 06:59 18:59 Intake Total 1464 255 240 Output Total 1300 120 Balance 164 135 240 Intake: Oral 1464 255 240 Output: Urine 1300 120 Other: Voiding Method Incontinent Incontinent Incontinent External Catheter External Catheter External Catheter - Exam GENERAL EXAM: Alert, 77-year-old male, looks frail and chronically ill, not in respiratory distress. HEAD: Normocephalic and atraumatic EYES: Normal reaction of pupils, equal size. NOSE: Clear with pink turbinates. THROAT: No erythema or exudates. NECK: No masses, no JVD. CHEST: Good breath sound bilaterally no rhonchi no wheezes CVS: S1 and S2 normal with no audible murmur, regular rhythm. No extra heart sounds ABDOMEN: No hepatosplenomegaly, active bowel sounds, no guarding or rigidity. SKIN: No rashes. CENTRAL NERVOUS SYSTEM: Looks generally weak otherwise no focal deficits EXTREMITIES: No clubbing edema or cyanosis. - Labs CBC & Chem 7: 12/09/22 10:13 12/09/22 10:13 Labs: Abnormal Lab Results - Last 24 Hours (Table) 12/08/22 12/09/22 12/09/22 Range/Units 09:07 10:13 10:13 WBC 11.9 H (3.8-10.6) k/uL RBC 3.74 L (4.30-5.90) m/uL Hgb 10.9 L (13.0-17.5) gm/dL Hct 35.0 L (39.0-53.0) % Neutrophils # 8.8 H (1.3-7.7) k/uL Monocytes # 1.2 H (0-1.0) k/uL Sodium 132 L (137-145) mmol/L Glucose 118 H (74-99) mg/dL Calcium 8.2 L (8.4-10.2) mg/dL Procalcitonin 0.16 H (0.02-0.09) ng/mL Microbiology - Last 24 Hours (Table) 12/08/22 10:20 Gram Stain - Preliminary Pleural Fluid Body Fluid Culture - Preliminary Assessment and Plan Assessment: Impression: Acute on chronic hypoxic respiratory failure secondary to acute community- acquired pneumonia and acute systolic congestive heart failure with left-sided pleural effusion Nonspecific abdominal pain and discomfort, resolved Chronic obstructive pulmonary disease Ischemic cardiomyopathy and LV dysfunction and ejection fraction less than 20% Acute on chronic kidney disease Coronary arteriosclerosis and multiple stents placement Ascending aortic aneurysm 4.6 cm Obstructive sleep apnea syndrome Ex-smoker Status post left thoracentesis, over 1000 mL drained from the left pleural space sent for different diagnostic studies. Left apical pneumothorax, could be iatrogenic or could be failure for the left lung to fully expand after large amount of fluid was drained hence follow-up chest x-ray is pending Recommendation: Will clear the patient for discharge if cleared by other consultants Continue present supportive care measures Continue diuretics and transitioned Lasix to oral consent of IV Lasix, We will continue to follow.If the patient does not get discharged home today Time with Patient: Less than 30
[2022-12-09 13:07] VITALS: BP 127/63; PULSE 81; TEMP 97.7
--- NOTE | 2022-12-10 01:03 | P.DS ---
Providers Date of admission: 12/02/22 11:59 Attending physician: Felicia Nice Consults: 12/02/22 11:06 Consult Physician Urgent Consulting Provider: Sony Harris Consult Reason/Comments: shock Do you want consulting provider notified?: Yes 12/02/22 14:24 Consult Physician Urgent Consulting Provider: Lu James Consult Reason/Comments: Pneumonia, sepsis Do you want consulting provider notified?: Yes Primary care physician: [facility] Course: Final Diagnosis Abdominal pain resolved Nausea, vomiting and diarrhea, C.Dif negative likely antibiotic associated Acute on chronic hypoxic respiratory failure secondary to acute systolic CHF and community acquired pneumonia Bilateral pleural effusion s/p Left thoracentesis with 1L off, transudative History of COPD with intermittent oxygen use at home Acute on chronic kidney disease improved Episode of bradycardia and diaphoresis monitored in ICU and resolved. Elevated troponin cardiology has ruled out ACS History of ischemic cardiomyopathy with most recent EF of 20% History of CABG with stenting Permanent pacemaker AICD in 2019 Ascending aortic aneurysm 4.6 cm. History of fibromyalgia Hyperlipidemia hypertension Former smoker Obstructive sleep apnea Full Code Discharge Disposition Patient is stable for discharge home with overall guarded condition due to multiple medical comorbidities. Patient is status post left sided thoracentesis and will follow up with pulmonary on discharge for pathology and cytology. Transitioned back to oral lasix on discharge. Recommending to hold sotalol on discharge as recommended by cardiology. Entresto is also held and patient will follow up closely with his usual biology tutor Dr. BETI Chisholm on discharge. Patient to repeat labs in 2 to 3 days. Discharged home with homecare services and home physical therapy. Hospital Course The patient is a 77-year-old male with a known history of severe ischemic cardiac myopathy, status post ICD implantation, status post CABG and PCI. Presents to the hospital secondary to abdominal pain with nausea and vomiting. Patient stated that he has been having abdominal pain for last couple of days, pain is located in the upper part of the abdomen and is going to his back. Denies any chest pain. Does complain of worsening shortness of breath. Because of the abdominal pain patient came to the ER. Labs on admission reveal sodium 133, potassium 5.1, BUN 27, creatinine 1.58. CT Abdomen pelvis showed moderate left and small right pleural effusions, left lower lobe atelectasis, partially visualized aneurysmal aorta of 4.6 cm. Patient was admitted to medicine service for further evaluation and treatment, pulmonary, cardiology placed on consultation. Patient had an episode of diaphoresis feeling cold and clammy with heart rate into the 30s and required monitoring in the intensive care unit. Patient underwent left sided thoracentesis for the pleural effusion with 1L of fluid taken off. Cardiac telemetry reveals multiple PVCs. Patient was treated with IV lasix felt this a CHF exacerbation causing the pleural effusion. Coreg dose was increased by cardiology. AICD was interrogated and no evidence of device malfunction or arryhthmia. Infectious disease also consulted for the lactic acidosis and possible pneumonia, was treated with IV antibiotics had elevated CRP procalcitonin mildly elevated. Patient had diarrhea and C.Dif was negative felt this was likely secondary to antibiotics which were discontinued and patient was monitored off antibiotics. Patient returns to home oxygen dosing at 2L which he wears intermittently. Abdominal pain has resolved patients main complaint is his usual chronic back pain and states this has been ongoing since his open heart surgery. Shortness of breath has improved. Lungs are essentially clear. Did develop tiny left pneumo after thoracentesis has been using incentive spirometer and educated to continue on discharge. Patient diarrhea has resolved also. Continues off antibiotics at this time. Creatinine has normalized down to 1.03. White count and hemoglobin remain stable. Remains afebrile, heart rate improved up to the 70-80s. Has generalized weakness no focal deficits and will be set up with homecare and home PT on discharge. Cleared by all consultations. Please see medication reconciliation for a list of current medication. The impression and plan of care has been dictated by Lori Esteves, Nurse Practitioner as directed. Dr. Nitin MD I have performed a history and physical examination and medical decision making of this patient, discussed the same with the dictator, and agree with the dictators assessment and plan as written, documented as a scribe. Based on total visit time, I have performed more than 50% of this visit. Patient Condition at Discharge: Fair Plan - Discharge Summary Discharge Rx Participant: No New Discharge Prescriptions: New Cholestyramine (with Sugar) [Questran Packet] 4 gm PO BID@1000,1800 #20 packet Docusate [Colace] 100 mg PO DAILY #30 cap carvediloL [Coreg] 6.25 mg PO BID-W/MEALS #60 tab Continue Aspirin 81 mg PO DAILY chew Clopidogrel [Plavix] 75 mg PO DAILY #30 tab Vit C/E/Zn/Coppr/Lutein/Zeaxan [Preservision Areds 2 Softgel] 1 cap PO BID Potassium Citrate [Urocit-K] 10 meq PO BID Multivitamins, Thera [Multivitamin (formulary)] 1 tab PO DAILY Lidocaine 5% Patch [Lidoderm 5% Patch] 1 patch TRANSDERM DAILY Cholecalciferol [Vitamin D3 (25 Mcg = 1000 Iu)] 50 mcg PO DAILY 30 Days #30 tab Dapagliflozin Propanediol [Farxiga] 10 mg PO DAILY #30 tablet Nitroglycerin Sl Tabs [Nitrostat] 0.4 mg SL Q5M PRN PRN Reason: Chest Pain Atorvastatin [Lipitor] 80 mg PO HS DULoxetine HCL [Cymbalta] 60 mg PO DAILY oxyCODONE-APAP 10-325MG [Percocet 10-325 mg] 1 tab PO Q4HR PRN MDD 5 tabs PRN Reason: Pain ALPRAZolam [Xanax] 0.5 mg PO BID PRN PRN Reason: Anxiety Ascorbic Acid [Vitamin C] 500 mg PO DAILY Furosemide [Lasix] 40 mg PO Q12HR #60 tab Discontinued carvediloL [Coreg] 3.125 mg PO BID-W/MEALS #60 tab Sacubitril/Valsartan [Entresto 24 mg-26 mg Tablet] 1 tab PO BID Sotalol [Betapace] 80 mg PO BID Discharge Medication List Aspirin 81 mg PO DAILY chew 10/26/19 [Rx] Clopidogrel [Plavix] 75 mg PO DAILY #30 tab 10/26/19 [Rx] Vit C/E/Zn/Coppr/Lutein/Zeaxan [Preservision Areds 2 Softgel] 1 cap PO BID 12/08/19 [History] Atorvastatin [Lipitor] 80 mg PO HS 08/10/21 [History] DULoxetine HCL [Cymbalta] 60 mg PO DAILY 08/10/21 [History] Potassium Citrate [Urocit-K] 10 meq PO BID 08/10/21 [History] Lidocaine 5% Patch [Lidoderm 5% Patch] 1 patch TRANSDERM DAILY 06/13/22 [History] Multivitamins, Thera [Multivitamin (formulary)] 1 tab PO DAILY 06/13/22 [History] oxyCODONE-APAP 10-325MG [Percocet 10-325 mg] 1 tab PO Q4HR PRN MDD 5 tabs 06/13/22 [History] Cholecalciferol [Vitamin D3 (25 Mcg = 1000 Iu)] 50 mcg PO DAILY 30 Days #30 tab 06/19/22 [Rx] ALPRAZolam [Xanax] 0.5 mg PO BID PRN 09/20/22 [History] Ascorbic Acid [Vitamin C] 500 mg PO DAILY 09/20/22 [History] Furosemide [Lasix] 40 mg PO Q12HR #60 tab 09/24/22 [Rx] Dapagliflozin Propanediol [Farxiga] 10 mg PO DAILY #30 tablet 11/14/22 [Rx] Nitroglycerin Sl Tabs [Nitrostat] 0.4 mg SL Q5M PRN 12/01/22 [History] Cholestyramine (with Sugar) [Questran Packet] 4 gm PO BID@1000,1800 #20 packet 12/09/22 [Rx] Docusate [Colace] 100 mg PO DAILY #30 cap 12/09/22 [Rx] carvediloL [Coreg] 6.25 mg PO BID-W/MEALS #60 tab 12/09/22 [Rx] Follow up Appointment(s)/Referral(s): Sanchez Chisholm MD [STAFF PHYSICIAN] - 1 Week (office will call you with appointment) Camilla Abrams DO [STAFF PHYSICIAN] - 12/30/22 11:45 am [facility], [NON-STAFF] - Cong Hassan DO [Primary Care Provider] - 1-2 days (please call office for appointment, nurse unable to reach office) Lu James MD [STAFF PHYSICIAN] - 2 Weeks (please call after December 12 to make appointment @ [address] [place] [address], [address]) Sony Harris MD [STAFF PHYSICIAN] - 12/14/22 10:00 am Ambulatory/Diagnostic Orders: Basic Metabolic Panel [LAB.AMB] Time Frame: 3 Days, Location: None Selected Complete Blood Count w/diff [LAB.AMB] Time Frame: 3 Days, Location: None Select ed Activity/Diet/Wound Care/Special Instructions: Continue on oral lasix Continue with oxygen as needed Follow up with cardiology on discharge Continue with incentive spirometer 10 x an hour while awake. Continue on dysphagia level 3 chopped 1500 ml fluid restriction diet. Discharge Disposition: HOME WITH HOME HEALTH SERVICES
--- NOTE | 2022-12-11 16:22 | CDI ---
Documentation Clarification Form Date: From: Kianna Crocker Phone: [phone] Admit Date: 12/02/2022 11:59:00 AM Patient Name: Trino Brandt Visit Number: [id number] Discharge Date: 12/09/2022 05:37:00 PM ATTENTION: The Clinical Documentation Specialists (CDI) and [facility] Coding Staff appreciate your assistance in clarifying documentation. Please respond to the clarification below the line at the bottom and electronically sign. The CDI & [facility] Coding staff will review the response and follow-up if needed. Please note: Queries are made part of the Legal Health Record. If you have any questions, please contact the author of this message via ITS. Dr. Felicia Nice Sepsis is documented on the Consult reason on 12/02 but is not noted in subsequent documentation. Clarification is requested. History/Risk Factors: "77-year-old male with a known history of severe ischemic cardiac myopathy, status post ICD implantation, status post CABG and PCI, he underwent PCI of the left main and circumflex in [place] [address] Chisholm with mechanical support. He has a patent WHITE to the LAD and patent radial to the right PDA was occluded SVG to the PLV who presented to the hospital because of abdominal pain and nausea and vomiting." - Per Medical H&P on 12/01 Clinical Indicators: "patient did have slightly respiratory compromise mild cough concern for possible pneumonia" - Per Consult Note on 12/02 "worsening of his condition requiring admission to the ICU and was concern for possible pneumonia patient was started on broad-spectrum antibiotics in the form of Zosyn and vancomycin infectious was consulted for further management of antibiotic therapy patient at time of evaluation slightly sleepy lethargic" - Per Medical Consult note on 12/02 "Acute on chronic hypoxemic respiratory failure, possibly multifactorial related to a developing right lower lobe pneumonia and/or mild CHF exacerbation" - Per Progress Note on 12/03 Vitals: 12/02 - Temp. 99.3, HR 70, RR 25, BP 146/80, O2 98% on NC 12/03 - Temp. 96.8, HR 57, RR 12, BP 140/81, O2 100% on 3L NC WBC: 12/02 - 10.9, 12/03 - 11.2, 12/04 - 12.8, 12/06 - 10.5 C Reactive Protein: 12/03 - 3.1, 12/08 - 5.9 Procalcitonin: 12/02 - 0.20, 12/08 - 0.16 Lactic Acid: 12/02 - 4.0, 3.7, 2.4, 12/03 - 2.7 Treatment: "started on broad-spectrum antibiotics in the form of Zosyn and vancomycin infectious was consulted" - Per Medical Consult Note on 12/02 "sputum for Gram and culture check a CRP and a procalcitonin level blood cultures have been obtained" - Per Consult Note on 12/02 "fluid resuscitation with a total of 2 L normal saline bolus" - Per Progress Note on 12/03 Please clarify: [ x ] Sepsis confirmed [ ] Sepsis ruled out [ ] Other condition, please specify [ ] Unable to determine MTDD
== END 2022-12-09 17:37 | disposition home health service (06) | DRG 871 ==
LOC: EC 22:31 → 3SCARD 12-01 04:06 → 6NMEDSUR 12-01 04:17 → 2SICU 12-02 11:26 → OBSVTOIN 12-02 11:59 → 3SCARD 12-04 15:08
PROVIDERS: ADMIT Hospitalist; ATTEND Hospitalist
PROC: 0W9B3ZX Drainage of Left Pleural Cavity, Percutaneous Approach, Diagnostic (ICD-10-PCS; 2022-12-08)
PROC: 05HB33Z Insertion of Infusion Device into Right Basilic Vein, Percutaneous Approach (ICD-10-PCS; principal; 2022-12-08 18:45)
DX: A41.9 Sepsis, unspecified organism (principal); I50.23 Acute on chronic systolic (congestive) heart failure; J15.9 Unspecified bacterial pneumonia; J96.21 Acute and chronic respiratory failure with hypoxia; I13.0 Hypertensive heart and chronic kidney disease with heart failure and stage 1 through stage 4 chronic kidney disease, or unspecified chronic kidney disease; K52.1 Toxic gastroenteritis and colitis; I25.810 Atherosclerosis of coronary artery bypass graft(s) without angina pectoris; I47.20 Ventricular tachycardia, unspecified; J44.0 Chronic obstructive pulmonary disease with (acute) lower respiratory infection; J98.11 Atelectasis; N17.9 Acute kidney failure, unspecified; E87.20 Acidosis, unspecified; J90 Pleural effusion, not elsewhere classified; E86.0 Dehydration; I25.10 Atherosclerotic heart disease of native coronary artery without angina pectoris; I25.5 Ischemic cardiomyopathy; R13.10 Dysphagia, unspecified; I49.3 Ventricular premature depolarization; M54.50 Low back pain, unspecified; N18.9 Chronic kidney disease, unspecified; Z99.81 Dependence on supplemental oxygen; I71.40 Abdominal aortic aneurysm, without rupture, unspecified; I70.0 Atherosclerosis of aorta; N42.9 Disorder of prostate, unspecified; I08.1 Rheumatic disorders of both mitral and tricuspid valves; G89.29 Other chronic pain; G47.33 Obstructive sleep apnea (adult) (pediatric); R77.8 Other specified abnormalities of plasma proteins; I25.2 Old myocardial infarction; M19.90 Unspecified osteoarthritis, unspecified site; T36.95XA Adverse effect of unspecified systemic antibiotic, initial encounter; Z20.822 Contact with and (suspected) exposure to COVID-19; M79.7 Fibromyalgia; Z71.3 Dietary counseling and surveillance; Z79.02 Long term (current) use of antithrombotics/antiplatelets; Z79.82 Long term (current) use of aspirin; Z79.84 Long term (current) use of oral hypoglycemic drugs; Z79.899 Other long term (current) drug therapy; Z82.49 Family history of ischemic heart disease and other diseases of the circulatory system; Z86.79 Personal history of other diseases of the circulatory system; Z87.442 Personal history of urinary calculi; Z95.5 Presence of coronary angioplasty implant and graft; Z95.810 Presence of automatic (implantable) cardiac defibrillator
CPT/HCPCS: 36415; 71045; 71046; 71250; 74176; 76604; 80048; 80053; 81001; 82150; 82945; 83605; 83615; 83690; 83735; 84132; 84145; 84155; 84157; 84439; 84443; 84481; 84484; 85025; 85027; 85610; 85730; 86140; 87040; 87070; 87205; 87324; 87449; 87635; 88108; 88305; 89050; 93005; 94640; 94760; 96374; 96376; 99285